=== PATIENT | male | born 1935 | race Caucasian/White ===

== ENCOUNTER 2016-10-07 13:01 | Inpatient (IN) | payer MEDICARE, MEDICAID ==
[2016-10-07 13:02] VITALS: BMI 26.0
[2016-10-07 14:08] LABS: BASO # 0.1 K/uL (0.0-0.2); BASO % 0.7 % (0.0-2.0); EOS # 0.4 K/uL (0.0-0.7); EOS % 2.4 % (0.0-4.0); HEMATOCRIT 38.5 % (35.0-51.0); LYMPH # 2.7 K/uL (1.0-4.3); LYMPH % 16.5 % (20.0-40.0); MEAN CELL VOLUME 70.6 fL (80.0-94.0); MEAN CORPUSCULAR HEMOGLOBIN 21.6 pg (27.0-31.0); MEAN CORPUSCULAR HGB CONC 30.6 g/dL (33.0-37.0); MEAN PLATELET VOLUME 9.2 fL (7.2-11.7); MONO # 1.8 K/uL (0.0-0.8); NRBC % 0.1 % (0.0-2.0)
[2016-10-07 14:16] LABS: WHITE BLOOD COUNT 16.3 K/uL (4.8-10.8)
[2016-10-07 14:20] LABS: BILIRUBIN,TOTAL 0.7 mg/dL (0.2-1.3); TOTAL PROTEIN 8.4 g/dL (6.3-8.3)
[2016-10-07 14:33] LABS: TROPONIN I 0.067 ng/mL (0.00-0.120)
[2016-10-07 14:47] LABS: POTASSIUM 5.7 mmol/L (3.6-5.2)
[2016-10-07] MEDS ORDERED: Sodium Chloride 0.9% 1,000 ML IV ONE (14:52)
[2016-10-07] MEDS ORDERED: Piperacillin/Tazobact 3.375 gm 100 ML IVPB STA (14:55)
[2016-10-07] MEDS ORDERED: Sodium Chloride 0.9% 1,000 ML ONE (14:57)
[2016-10-07] MEDS ORDERED: Piperacillin/Tazobact 3.375 gm 100 ML IVPB ONE (15:00)
--- NOTE | 2016-10-07 15:00 | C.PDOC ---
Time Seen by Provider: 10/07/16 13:22 Chief Complaint (Nursing): Abnormal Skin Integrity History Per: Patient, Family Onset/Duration Of Symptoms: Days (3) Current Symptoms Are (Timing): Still Present Location Of Injury: Left: Foot Quality Of Symptoms: Painful Severity: Moderate Additional History Per: Prior Records Past Medical History Reviewed: Historical Data, Nursing Documentation, Vital Signs Vital Signs: Last Vital Signs Temp 97.9 F 10/07/16 13:08 Pulse 89 10/07/16 13:08 Resp 16 10/07/16 13:08 BP 151/51 H 10/07/16 13:08 Pulse Ox 97 10/07/16 13:08 - Medical History PMH: Arthritis, CAD, Diabetes, HTN, Hypercholesterolemia, Hypothyroidism Surgical History: Cholecystectomy - [facility] Procedures ARTHROCENTESIS (04/20/14) CENTRAL VENOUS CATHETER PLACEMENT WITH GUIDANCE (06/20/14) CYSTOSCOPY NEC (01/19/14) INSERTION OF ENDOTRACHEAL AIRWAY INTO TRACHEA, VIA OPENING (08/01/15) INTRAOPER CHOLANGIOGRAM (09/30/14) LAPAROSCOP LYSIS-PERITONEAL ADHES (09/30/14) LAPAROSCOPIC CHOLECYSTECTOMY (09/30/14) PERC HEPAT CHOLANGIOGRAM (04/20/14) PERCUTAN ASPIRATION GB (07/14/14) REMOV CHOLECYSTOST TUBE (06/03/14) RESPIRATORY VENTILATION, 24-96 CONSECUTIVE HOURS (08/01/15) TRANSURETHRAL PROSTATECTOMY ([place]) (01/19/14) VACCINATION NEC (11/09/14) VENOUS CATHETERIZATION NEC (08/25/14) Family History: States: Unknown Family Hx - Social History Hx Tobacco Use: Yes Hx Alcohol Use: No Hx Substance Use: No - Immunization History Hx Tetanus Toxoid Vaccination: No Hx Influenza Vaccination: No Hx Pneumococcal Vaccination: No Review Of Systems Except As Marked, All Systems Reviewed And Found Negative. Constitutional: Positive for: Weakness, Malaise. Negative for: Fever Cardiovascular: Negative for: Chest Pain Respiratory: Negative for: Shortness of Breath, Hemoptysis Gastrointestinal: Negative for: Vomiting, Abdominal Pain Musculoskeletal: Positive for: Foot Pain (left). Negative for: Neck Pain Neurological: Negative for: Seizures, Altered Mental Status, Headache Physical Exam - Physical Exam Appears: No Acute Distress, Chronically Ill Skin: Warm, Dry Head: Atraumatic Oral Mucosa: Dry Neck: Normal ROM, Supple Cardiovascular: Rhythm Regular Respiratory: Normal Breath Sounds, No Accessory Muscle Use Gastrointestinal/Abdominal: Soft, No Tenderness Extremity: Normal ROM, Other (Left 4th toe is dark in color and tender.) Pulses: Left Dorsalis Pedis: Decreased, Right Dorsalis Pedis: Decreased Neurological/Psych: Oriented x3, Other (Able to move all extremities) Gait: Unable To Assess ED Course And Treatment - Laboratory Results Result Diagrams: 10/07/16 13:59 10/07/16 13:59 Lab Interpretation: Abnormal Interpretation Of Abnormal: Leukocytosis. Elevated BUN/Cr. Hyperglycemia. ECG: Interpreted By Me, Viewed By Me ECG Rhythm: Sinus Rhythm, Nonspecific Changes ECG Interpretation: No Changes From Prior Interpretation Of ECG: LVH with strain pattern. Rate From EC O2 Sat by Pulse Oximetry: 97 Pulse Ox Interpretation: Normal - Radiology CXR: Interpreted by Me, Viewed By Me CXR Interpretation: Yes: No Acute Disease - Other Rad Left 4th toe x-rays X-Ray: Interpreted by Me, Viewed By Me Interpretation: No acute fx or dislocation. Progress - Interventions Interventions:: Observation, Intravenous fluid - Medications Administered Intravenous: Other (Abx) - Data Reviewed Data Reviewed: Lab, Diagnostic imaging, EKG, Old records - Patient Status Patient status: Partially improved - Continuity of Care Discussed patient case with:: Patient, Family-HIPPA compliant, ED Nurse, On- call PMD-pt unassigned - Patient Plan Patient Plan: Admission Disposition Discussed With : Brian Kat Comment: He accepted pt on hospitalist service. Doctor Will See Patient In The: Hospital Counseled Patient/Family Regarding: Studies Performed, Diagnosis, Smoking Cessation - Disposition Disposition: HOSPITALIZED Disposition Time: 15:05 Condition: GUARDED - POA Present On Arrival: Poor Glycemic Control - Clinical Impression Clinical Impression: Diabetic ulcer of toe of left foot, Acute renal failure, Uncontrolled diabetes mellitus with hyperglycemia
--- NOTE | 2016-10-07 15:41 | CP.PCM.HP ---
<Kalli Garcia - Last Filed: 10/07/16 16:17> History of Present Illness - History of Present Illness History of Present Illness: CC: "something is wrong with my foot" HPI: Patient is an 81 year old man with PMHx of arthritis, CAD, CHF, DMII, HTN, hyperlipidemia and hypothyroidism presenting for change in color of 4th left toe. Patient says he noticed the change in color and swelling 7-8 days ago. Patient has not seen his PMD for this or put any type of cream on it. Patient does not have any pain at the toe when it is not being touched. Patient reports being able to walk with his walker which is what he usually uses. Patient denies this ever happening before. Patient denies fever, chills, weight change, headache, vision change, chest pain, palpitations, SOB, cough, abdominal pain, nausea, vomiting, diarrhea, constipation, dysuria, rash, back pain and easy bleeding. PMD: Abid PMHx: Arthritis, CAD, CHF, DM, HTN, Hyperlipidemia, hypothyroidism PSHx: cholecystectomy (09/2104) FamHx: Denies [place], CVA, or cancer history Social Hx: Tobacco - 1/2 ppd x 20 years; Alcohol - denies ; Drugs- denies ; lives in apartment with in [place] Present on Admission - Present on Admission Any Indicators Present on Admission: Yes History of Uncontrolled Diabetes: Yes Review of Systems - Constitutional Constitutional: absent: Chills, Fever, Headache - EENT Eyes: absent: Blurred Vision, Change in Vision Ears: absent: Dizziness Nose/Mouth/Throat: absent: Sore Throat - Cardiovascular Cardiovascular: absent: Chest Pain, Dyspnea, Palpitations, Pedal Edema - Respiratory Respiratory: absent: Cough, Dyspnea - Gastrointestinal Gastrointestinal: absent: Abdominal Pain, Constipation, Diarrhea, Nausea, Vomiting - Genitourinary Genitourinary: absent: Dysuria - Musculoskeletal Musculoskeletal: absent: Back Pain - Integumentary Additional comments: green 4th toe on left foot - Neurological Neurological: absent: Dizziness, Headaches - Endocrine Endocrine: absent: Fatigue, Palpitations - Hematologic/Lymphatic Hematologic: absent: Easy Bleeding, Easy Bruising Past Patient History - Infectious Disease Hx of Infectious Diseases: None - Tetanus Immunizations Tetanus Immunization: Unknown - Past Medical History & Family History Past Medical History?: Yes Past Family History: Reviewed and not pertinent - Past Social History Smoking Status: Light Smoker < 10 Cigarettes Daily Alcohol: None Drugs: Denies Home Situation {Lives}: With Family - CARDIAC Hx Hypercholesterolemia: Yes Hx Hypertension: Yes - PULMONARY Hx Respiratory Disorders: No - NEUROLOGICAL HX Cerebrovascular Accident: Yes - HEENT Hx HEENT Problems: Yes (glasses) Hx Cataracts: Yes (right) - RENAL Hx Chronic Kidney Disease: No - ENDOCRINE/METABOLIC Hx Hypothyroidism: Yes - HEMATOLOGICAL/ONCOLOGICAL Hx Blood Disorders: No - INTEGUMENTARY Hx Dermatological Problems: No - MUSCULOSKELETAL/RHEUMATOLOGICAL Hx Arthritis: Yes - GASTROINTESTINAL Hx Gastrointestinal Disorders: No - GENITOURINARY/GYNECOLOGICAL Hx Genitourinary Disorders: Yes (BPH) Hx Incontinence: Yes Hx Prostate Problems: Yes (prostate surgery in 2013) - PSYCHIATRIC Hx Substance Use: No - SURGICAL HISTORY Hx Cholecystectomy: Yes - ANESTHESIA Hx Anesthesia: Yes Hx Anesthesia Reactions: No Hx Malignant Hyperthermia: No Meds Allergies/Adverse Reactions: Allergies Allergy/AdvReac Type Severity Reaction Status Date / Time No Known Allergies Allergy Verified 10/07/16 13:11 Physical Exam - Constitutional Appears: Non-toxic, No Acute Distress - Head Exam Head Exam: NORMAL INSPECTION - Eye Exam Eye Exam: EOMI - ENT Exam ENT Exam: Mucous Membranes Moist - Respiratory Exam Respiratory Exam: Rales (bibasilar), NORMAL BREATHING PATTERN. absent: Rhonchi , Wheezes - Cardiovascular Exam Cardiovascular Exam: REGULAR RHYTHM, +S1, +S2, Systolic Murmur. absent: Gallop , Rubs - GI/Abdominal Exam GI & Abdominal Exam: Normal Bowel Sounds, Soft. absent: Distended, Firm, Tenderness - Extremities Exam Extremities exam: Positive for: pedal edema (left foot edematous and erythematous) Additional comments: b/l feet cold to touch; faint pedal pulses left 4th toe bright green on dorsal aspect extending along metatarsal bone; dark green on plantar aspect; no open wound; no drainage - Neurological Exam Neurological exam: Alert, Oriented x3 - Psychiatric Exam Psychiatric exam: Normal Affect, Normal Mood - Skin Skin Exam: Dry Results - Vital Signs Recent Vital Signs: Last Vital Signs Temp 97.9 F 10/07/16 13:08 Pulse 89 10/07/16 13:08 Resp 16 10/07/16 13:08 BP 151/51 H 10/07/16 13:08 Pulse Ox 97 10/07/16 15:07 - Labs Result Diagrams: 10/07/16 13:59 10/07/16 13:59 Labs: Laboratory Results - last 24 hr 10/07/16 13:59 WBC 16.3 H D RBC 5.45 Hgb 11.8 L Hct 38.5 MCV 70.6 L MCH 21.6 L MCHC 30.6 L RDW 19.0 H Plt Count 253 MPV 9.2 Neut % (Auto) 69.4 Lymph % (Auto) 16.5 L Love % (Auto) 11.0 H Eos % (Auto) 2.4 Baso % (Auto) 0.7 Neut # 11.3 H Lymph # 2.7 Love # 1.8 H Eos # 0.4 Baso # 0.1 Sodium 133 Potassium 5.7 H Chloride 90 L Carbon Dioxide 24 Anion Gap 25 H BUN 61 H Creatinine 1.9 H Est GFR ( Amer) 41 Est GFR (Non-Af Amer) 34 Random Glucose 335 H Calcium 9.0 Total Bilirubin 0.7 AST 30 ALT 29 Alkaline Phosphatase 128 H Troponin I 0.0670 NT-Pro-B Natriuret Pep 490 Total Protein 8.4 H Albumin 4.2 Globulin 4.2 H Albumin/Globulin Ratio 1.0 Assessment & Plan - Assessment and Plan (Free Text) Assessment: Gangrenous Toe Vancomycin 1gm IVPB in ER Zosyn 3.375gm IVPB in ER NS 1L in ER Vancomycin 500mg IVPB daily (started 10/07/16) Zosyn 2.25gm IVPB Q8H (started 10/07/16) NS @ 70cc/hr Nursing communication to gently wash left foot with saline daily F/U Left foot x ray results F/U Left foot MRI ID consult - Dr. Hauser - help appreciated - Random Vancomycin level ordered for AM - may switch to cubicin tomorrow after she sees patient Podiatry consult - Dr. Gaytan - help appreciated - podiatry resident says she will see patient tomorrow Leukocytosis WBC 16.3 with 11.3 neutrophils, 69.4% neutrophils, no bands Likely secondary to gangrene See plan above Monitor CBC PVD F/U arterial dopplers Vasculary surgery consult depending on result of arterial dopplers Acute on chronic kidney injury BUN/Cr: 61/1.9 NS @ 70cc/hr Holding lasix Monitor BUN/Cr If no improvement with fluids, get nephrology consult History of DM Accuchecks ACHS RISS F/U HgbA1C Hold home metformin 850mg PO History of CAD Continue home ASA 81mg PO daily Continue home Plavix 75mg PO daily History of CHF Hold home lasix 20mg PO daily secondary to acute on chronic kidney injury CXR 10/07/16 - diffuse increased interstitial lung markings which may represent mild edema and/or infiltrate. Patchy increased makrings at the left lung base. Small nodular density at the medial left upper lung zone may represent vessel ( please see full report) History of Hypothyroidism Patient not on any home medications for this F/U TSH and Free T4 History of HTN Continue home Losartan 50mg PO daily Prophylaxis Heparin 5000U SC Q8H SCDs contraindicated secondary to PVD and gangrene Protonix 40mg PO daily <Brian Kat H - Last Filed: 10/07/16 17:19> Results - Vital Signs Recent Vital Signs: Last Vital Signs Temp 97.9 F 10/07/16 13:08 Pulse 89 10/07/16 16:31 Resp 12 10/07/16 16:31 BP 146/111 H 10/07/16 16:31 Pulse Ox 98 10/07/16 16:31 - Labs Result Diagrams: 10/07/16 13:59 10/07/16 13:59 Labs: Laboratory Results - last 24 hr 10/07/16 10/07/16 15:57 16:49 POC Glucose (mg/dL) 277 H Urine Color Yellow Urine Clarity Clear Urine pH 6.0 Ur Specific [place] 1.011 Urine Protein Negative Urine Glucose (UA) 1+ H Urine Ketones Negative Urine Blood Negative Urine Nitrate Negative Urine Bilirubin Negative Urine Urobilinogen Normal Ur Leukocyte Esterase Neg Urine WBC (Auto) 11 H Urine RBC (Auto) < 1 Ur Squamous Epith Cells < 1 Urine Bacteria Rare Attending/Attestation - Attestation I have personally seen and examined this patient.: Yes I have fully participated in the care of the patient.: Yes I have reviewed all pertinent clinical information: Yes Notes (Text): 10/07/16 17:16 Medical attending: Patient was seen and examined by me, agrees the above note by medical data entry clerk. Per inspection of the lower extremity, there does appear to be a lot of discoloration of the fourth toe, he does have a history of diabetes as well as blood pressure. His feet does feel cool with palpation so will check an arterial Doppler study. Furthermore because he explains to us that this is been going on for almost a week and a half now will check an MRI of that lower extremity as well to assess for possible osteomyelitis. In the meantime her to have IV antibiotics, vancomycin as well as Zosyn. Both these will have to be decreased in dosage due to his renal function. The patient will need a podiatry evaluation as well With regard to his elevated BUN/creatinine, will be giving the patient intravenous fluids however we'll have to be careful as to not give him too much pulmonary congestion. Will have to get chest x-rays, it appears that his baseline creatinine is about 1.3 this is from 2 months ago Thank you very much, Brian Kat
[2016-10-07] MEDS ORDERED: Oxycodone/Acetaminophen 5/325 mg Tab PO PRN (15:54)
[2016-10-07] MEDS ORDERED: Piperacillin/Tazobact 2.25 GM in Sodium Chloride 100 ML IVPB SCH (16:00)
[2016-10-07] MEDS ORDERED: Sodium Chloride 0.9% 1,000 ML IV SCH (16:00)
--- NOTE | 2016-10-07 16:01 | RAD ---
PROCEDURE: CHEST RADIOGRAPH, 1 VIEW HISTORY: Generalized weakness COMPARISON: 08/26/2015 FINDINGS: LUNGS: Diffuse increased interstitial lung markings which may represent mild edema and or infiltrate. Patchy increased markings at the left lung base. Small nodular density at the medial left upper lung zone may represent vessel. PLEURA: As above. CARDIOVASCULAR: Cardiomegaly. Calcification at the aortic knob. OSSEOUS STRUCTURES: No significant abnormalities. VISUALIZED UPPER ABDOMEN: Normal. OTHER FINDINGS: None. IMPRESSION: Diffuse increased interstitial lung markings which may represent mild edema and or infiltrate. Patchy increased markings at the left lung base. Small nodular density at the medial left upper lung zone may represent vessel.
[2016-10-07 16:13] LABS: RBC URINE < 1 /hpf (0-3); URINE BACTERIA RARE (<OCC); URINE BILIRUBIN NEGATIVE (NEGATIVE); URINE BLOOD NEGATIVE (NEGATIVE); URINE COLOR Yellow (YELLOW); URINE GLUCOSE (UA) 1+ mg/dL (Normal); URINE KETONE NEGATIVE (NEGATIVE); URINE LEUKOCYTE ESTERASE NEG Leu/uL (Negative); URINE PROTEIN NEGATIVE (NEGATIVE); URINE UROBILINOGEN NORMAL mg/dL (0.2-1.0); WBC URINE 11 /hpf (0-5)
[2016-10-07] MEDS ORDERED: Piperacill/Tazo 2.25gm in Dex 50 ML IVPB SCH (16:15)
[2016-10-07] MEDS: Pantoprazole 40 mg EC Tab PO SCH (16:40)
[2016-10-07] MEDS: (Novolin R) Insulin Human Regular 100 units/ml vial SC SCH ×2 (16:55→23:13)
--- NOTE | 2016-10-07 18:34 | RAD ---
Left foot 4th digit History: Pain. Discoloration. Comparison: None available. Findings: Moderate hallux valgus deformity with prominent degenerative changes noted at the 1st MTP joint space. Diffuse osteopenia somewhat limits evaluation. Subtle lucency the medial base of the 5th proximal, nonspecific. Curvilinear lucency through the base of the proximal phalanx nonspecific on the frontal view. Productive change the lateral cortex of the heads of the 3rd and 4th metatarsal nonspecific. Vascular calcifications. No evidence for acute displaced fracture or dislocation. Productive change at the dorsal aspect of the midfoot. Productive change at the level medial malleolus. Impression: Moderate hallux valgus deformity with prominent degenerative changes noted at the 1st MTP joint space. Diffuse osteopenia somewhat limits evaluation. Subtle lucency the medial base of the 5th proximal, nonspecific. Curvilinear lucency through the base of the proximal phalanx nonspecific on the frontal view. Productive change the lateral cortex of the heads of the 3rd and 4th metatarsal nonspecific. Vascular calcifications. No evidence for acute displaced fracture or dislocation. Productive change at the dorsal aspect of the midfoot. Productive change at the level medial malleolus. If there is concern for acute osteomyelitis, correlation with MRI or 3 phase bone scan is recommended for further evaluation.
[2016-10-07] MEDS: DAPTOmycin 600 MG in Sodium Chloride 0.9% 100 ML IV SCH (21:27)
[2016-10-07] MEDS: Piperacill/Tazo 2.25gm in Dex 50 ML IVPB SCH (23:16)
[2016-10-08] MEDS: Piperacill/Tazo 2.25gm in Dex 50 ML IVPB SCH ×3 (06:07→23:40)
[2016-10-08 07:18] LABS: BASO # 0.1 K/uL (0.0-0.2); BASO % 0.7 % (0.0-2.0); EOS # 0.3 K/uL (0.0-0.7); EOS % 3.2 % (0.0-4.0); HEMATOCRIT 37.2 % (35.0-51.0); LYMPH # 1.1 K/uL (1.0-4.3); LYMPH % 10.8 % (20.0-40.0); MEAN CELL VOLUME 70.4 fL (80.0-94.0); MEAN CORPUSCULAR HEMOGLOBIN 21.7 pg (27.0-31.0); MEAN CORPUSCULAR HGB CONC 30.8 g/dL (33.0-37.0); MEAN PLATELET VOLUME 8.9 fL (7.2-11.7); MONO # 0.9 K/uL (0.0-0.8); MONO % 8.9 % (0.0-10.0); RED CELL DISTRIBUTION WIDTH 18.4 % (11.5-14.5); WHITE BLOOD COUNT 10.4 K/uL (4.8-10.8)
[2016-10-08 07:28] LABS: POTASSIUM 4.2 mmol/L (3.6-5.2)
[2016-10-08 07:30] LABS: ALB/GLOB RATIO 0.9 (1.0-2.1); BILIRUBIN,TOTAL 0.5 mg/dL (0.2-1.3); TOTAL PROTEIN 7.1 g/dL (6.3-8.3)
[2016-10-08 07:31] LABS: CALCIUM 8.3 mg/dl (8.6-10.4)
[2016-10-08 08:01] LABS: THYROID STIMULATING HORMONE 4.47 mIU/L (0.46-4.68)
--- NOTE | 2016-10-08 08:22 | CP.PCM.PN ---
<Danny Vidales - Last Filed: 10/08/16 13:06> Subjective - Date & Time of Evaluation Date of Evaluation: 10/08/16 Time of Evaluation: 08:22 - Subjective Subjective: PGY-1 Medicine Progress Note for Dr. Garcai Patient seen and examined at bedside. No acute event overnight. Patient resting in bed comfortably. Patient is still complaining of pain in L foot. He stated that is the saem and yesterday. Patient has no other acute complaint at this time. He is tolerating diet and having BM. Denied fever/chills, cp, palpitations , sob, abd pain, n/v/d. Objective - Vital Signs/Intake and Output Vital Signs (last 24 hours): Temp Pulse Resp BP Pulse Ox 98 F 108 H 20 122/65 95 10/08/16 00:00 10/08/16 00:00 10/08/16 00:00 10/08/16 00:00 10/08/16 00:00 Intake and Output: 10/08/16 10/08/16 06:59 18:59 Intake Total 1000 Balance 1000 - Medications Medications: Current Medications Aspirin (Aspirin Chewable) 81 mg PO DAILY [facility] Clopidogrel Bisulfate (Plavix) 75 mg PO DAILY [facility] Heparin Sodium (Porcine) (Heparin) 5,000 units SC Q8 [facility] Last Admin: 10/08/16 06:07 Dose: 5,000 units Sodium Chloride (Sodium Chloride 0.9%) 1,000 mls @ 70 mls/hr IV .[id number] [facility] Last Admin: 10/07/16 16:08 Dose: 70 mls/hr Vancomycin HCl 500 mg/ Sodium (Chloride) 100 mls @ 100 mls/hr IVPB DAILY [facility] Piperacillin Sod/Tazobactam Sod (Zosyn 2.25 Gm Iv Premix) 50 mls @ 100 mls/hr IVPB Q8H [facility] Last Admin: 10/08/16 06:07 Dose: 100 mls/hr Daptomycin 600 mg/ Sodium (Chloride) 100 mls @ 100 mls/hr IV Q24H [facility] Stop: 10/12/16 18:01 Last Admin: 10/07/16 21:27 Dose: 100 mls/hr Insulin Human Regular (Novolin R) 0 unit SC ACHS [facility] PRN Reason: Protocol Last Admin: 10/07/16 23:13 Dose: Not Given Losartan Potassium (Cozaar) 50 mg PO DAILY [facility] Last Admin: 10/07/16 21:49 Dose: 50 mg Oxycodone/Acetaminophen (Percocet 5/325 Mg Tab) 1 tab PO Q4 PRN PRN Reason: Pain, moderate (4-7) Stop: 10/10/16 15:55 Pantoprazole Sodium (Protonix Ec Tab) 40 mg PO DAILY [facility] Last Admin: 10/07/16 16:40 Dose: 40 mg - Labs Labs: 10/08/16 07:10 10/08/16 07:10 - Constitutional Appears: No Acute Distress - Head Exam Head Exam: ATRAUMATIC, NORMOCEPHALIC - Eye Exam Eye Exam: EOMI, Normal appearance Pupil Exam: PERRL - ENT Exam ENT Exam: Mucous Membranes Moist - Respiratory Exam Respiratory Exam: Rales (Bibasilar), NORMAL BREATHING PATTERN. absent: Accessory Muscle Use, Respiratory Distress - Cardiovascular Exam Cardiovascular Exam: RRR, +S1, +S2 - GI/Abdominal Exam GI & Abdominal Exam: Soft, Normal Bowel Sounds. absent: Tenderness - Extremities Exam Extremities Exam: Normal Capillary Refill, Pedal Edema Additional comments: left foot edematous and erythematous b/l feet cold to touch; faint pedal pulses left 4th toe bright green on dorsal aspect extending along metatarsal bone; dark green on plantar aspect; no open wound; no drainage - Back Exam Back Exam: absent: CVA tenderness (L), CVA tenderness (R) - Neurological Exam Neurological Exam: Alert, Awake, CN II-XII Intact, Oriented x3 - Psychiatric Exam Psychiatric exam: Normal Affect, Normal Mood - Skin Skin Exam: Dry Assessment and Plan - Assessment and Plan (Free Text) Plan: 1. Gangrenous Toe Vascular Consult, Dr. Brown, help appreciated Daptomycin 600 mg IVPB Q24H Vancomycin 500mg IVPB daily (started 10/07/16) Zosyn 2.25gm IVPB Q8H (started 10/07/16) NS @ 70 cc/hr Nursing communication to gently wash left foot with saline daily Left foot x ray results: mild hallux deformity with degenerative changes. Diffuse osteopenia. Productive changes of 3rd and 4th metatarsal, dorsal aspect of midfoot, and level medial mallelolus (see full report). F/U Left foot MRI ID consult - Dr. Hauser - help appreciated Random Vancomycin level: 7.05 Podiatry consult - Dr. Gaytan - help appreciated 2. Leukocytosis WBC downtrending Likely secondary to gangrene Monitor CBC 3. PAD F/U arterial dopplers Vascular Consult, Dr. Brown, help appreciated 4. Acute on chronic kidney injury BUN/Cr: 50/1.7 NS @ 70 cc/hr Holding lasix Monitor BUN/Cr 5. History of DM Accuchecks ACHS RISS F/U HgbA1C Hold home metformin 850mg PO 6. History of CAD Continue home ASA 81mg PO daily Continue home Plavix 75mg PO daily 7. History of CHF Hold home lasix 20 mg PO daily secondary to acute on chronic kidney injury CXR 10/07/16 - diffuse increased interstitial lung markings which may represent mild edema and/or infiltrate. Patchy increased makrings at the left lung base. Small nodular density at the medial left upper lung zone may represent vessel ( please see full report) 8. History of Hypothyroidism Patient not on any home medications for this TSH 4.47 Free T4 1.25 9. History of HTN Continue home Losartan 50 mg PO daily 10. Prophylactic Measures Heparin 5000U SC Q8H SCDs contraindicated secondary to PVD and gangrene Protonix 40mg PO daily <Tahir Garcia - Last Filed: 10/08/16 17:55> Objective - Vital Signs/Intake and Output Vital Signs (last 24 hours): Temp Pulse Resp BP Pulse Ox 97.8 F 95 H 20 130/75 96 10/08/16 15:25 10/08/16 15:25 10/08/16 15:25 10/08/16 15:25 10/08/16 15:25 Intake and Output: 10/08/16 10/08/16 06:59 18:59 Intake Total 1000 530 Balance 1000 530 - Medications Medications: Current Medications Acetylcysteine (Acetylcysteine 20%) 3 ml PO Q12 [facility] Last Admin: 10/08/16 14:06 Dose: 3 ml Aspirin (Aspirin Chewable) 81 mg PO DAILY [facility] Last Admin: 10/08/16 10:06 Dose: 81 mg Clopidogrel Bisulfate (Plavix) 75 mg PO DAILY [facility] Last Admin: 10/08/16 10:06 Dose: 75 mg Heparin Sodium (Porcine) (Heparin) 5,000 units SC Q8 [facility] Last Admin: 10/08/16 14:07 Dose: 5,000 units Sodium Chloride (Sodium Chloride 0.9%) 1,000 mls @ 70 mls/hr IV .[id number] [facility] Last Admin: 10/07/16 16:08 Dose: 70 mls/hr Piperacillin Sod/Tazobactam Sod (Zosyn 2.25 Gm Iv Premix) 50 mls @ 100 mls/hr IVPB Q8H [facility] Last Admin: 10/08/16 14:54 Dose: 100 mls/hr Daptomycin 600 mg/ Sodium (Chloride) 100 mls @ 100 mls/hr IV Q24H [facility] Stop: 10/12/16 18:01 Last Admin: 10/07/16 21:27 Dose: 100 mls/hr Insulin Glargine (Lantus) 10 unit SC DAILY [facility] Last Admin: 10/08/16 14:44 Dose: 10 u Insulin Human Regular (Novolin R) 0 unit SC ACHS [facility] PRN Reason: Protocol Last Admin: 10/08/16 14:10 Dose: 3 unit Losartan Potassium (Cozaar) 50 mg PO DAILY [facility] Last Admin: 10/08/16 10:06 Dose: 50 mg Mupirocin (Bactroban Ointment) 0 gm TOP BID [facility] Oxycodone/Acetaminophen (Percocet 5/325 Mg Tab) 1 tab PO Q4 PRN PRN Reason: Pain, moderate (4-7) Stop: 10/10/16 15:55 Pantoprazole Sodium (Protonix Ec Tab) 40 mg PO DAILY [facility] Last Admin: 10/08/16 10:05 Dose: 40 mg - Labs Labs: 10/08/16 07:10 10/08/16 07:10 Attending/Attestation - Attestation I have personally seen and examined this patient.: Yes I have fully participated in the care of the patient.: Yes I have reviewed all pertinent clinical information, including history, physical exam and plan: Yes Notes (Text): 10/08/16 17:54 Patient was seen and examined at bedside with the resident Patient has possible gangrenous left foot toe We have requested vascular surgery and podiatry evaluation Workup is in progress Patient also started on antibiotics as per recommendations of ID
[2016-10-08] MEDS: (Novolin R) Insulin Human Regular 100 units/ml vial SC SCH ×4 (09:13→22:36)
[2016-10-08] MEDS: Pantoprazole 40 mg EC Tab PO SCH (10:05)
--- NOTE | 2016-10-08 11:47 | CP.PCM.CON ---
History of Present Illness - History of Present Illness History of Present Illness: 81 year old male for gsngrenous toe 4 left foot and foot is cold and swollen . Review of Systems - Constitutional Constitutional: Weakness - Cardiovascular Cardiovascular: Leg Edema, Pedal Edema - Respiratory Respiratory: As Per HPI - Gastrointestinal Gastrointestinal: As Per HPI - Musculoskeletal Musculoskeletal: Abnormal Gait, Muscle Weakness, Stiffness - Integumentary Integumentary: Skin Ulcer - Neurological Neurological: As Per HPI Past Patient History - Infectious Disease Hx of Infectious Diseases: None - Tetanus Immunizations Tetanus Immunization: Unknown - Past Medical History & Family History Past Medical History?: Yes - Past Social History Smoking Status: Never Smoked - CARDIAC Hx Hypercholesterolemia: Yes Hx Hypertension: Yes - PULMONARY Hx Respiratory Disorders: No - NEUROLOGICAL HX Cerebrovascular Accident: Yes - HEENT Hx HEENT Problems: Yes (glasses) Hx Cataracts: Yes (right) - RENAL Hx Chronic Kidney Disease: No - ENDOCRINE/METABOLIC Hx Hypothyroidism: Yes - HEMATOLOGICAL/ONCOLOGICAL Hx Blood Disorders: No - INTEGUMENTARY Hx Dermatological Problems: No - MUSCULOSKELETAL/RHEUMATOLOGICAL Hx Arthritis: Yes Hx Falls: No - GASTROINTESTINAL Hx Gastrointestinal Disorders: No - GENITOURINARY/GYNECOLOGICAL Hx Genitourinary Disorders: Yes (BPH) Hx Incontinence: Yes Hx Prostate Problems: Yes (prostate surgery in 2013) - PSYCHIATRIC Hx Substance Use: No - SURGICAL HISTORY Hx Cholecystectomy: Yes - ANESTHESIA Hx Anesthesia: Yes Hx Anesthesia Reactions: No Hx Malignant Hyperthermia: No Meds Allergies/Adverse Reactions: Allergies Allergy/AdvReac Type Severity Reaction Status Date / Time No Known Allergies Allergy Verified 10/07/16 13:11 - Medications Medications: Current Medications Aspirin (Aspirin Chewable) 81 mg PO DAILY [facility] Last Admin: 10/08/16 10:06 Dose: 81 mg Clopidogrel Bisulfate (Plavix) 75 mg PO DAILY [facility] Last Admin: 10/08/16 10:06 Dose: 75 mg Heparin Sodium (Porcine) (Heparin) 5,000 units SC Q8 [facility] Last Admin: 10/08/16 06:07 Dose: 5,000 units Sodium Chloride (Sodium Chloride 0.9%) 1,000 mls @ 70 mls/hr IV .[id number] [facility] Last Admin: 10/07/16 16:08 Dose: 70 mls/hr Vancomycin HCl 500 mg/ Sodium (Chloride) 100 mls @ 100 mls/hr IVPB DAILY [facility] Piperacillin Sod/Tazobactam Sod (Zosyn 2.25 Gm Iv Premix) 50 mls @ 100 mls/hr IVPB Q8H [facility] Last Admin: 10/08/16 06:07 Dose: 100 mls/hr Daptomycin 600 mg/ Sodium (Chloride) 100 mls @ 100 mls/hr IV Q24H [facility] Stop: 10/12/16 18:01 Last Admin: 10/07/16 21:27 Dose: 100 mls/hr Insulin Glargine (Lantus) 10 unit SC DAILY [facility] Insulin Human Regular (Novolin R) 0 unit SC ACHS [facility] PRN Reason: Protocol Last Admin: 10/08/16 09:13 Dose: 3 unit Losartan Potassium (Cozaar) 50 mg PO DAILY [facility] Last Admin: 10/08/16 10:06 Dose: 50 mg Oxycodone/Acetaminophen (Percocet 5/325 Mg Tab) 1 tab PO Q4 PRN PRN Reason: Pain, moderate (4-7) Stop: 10/10/16 15:55 Pantoprazole Sodium (Protonix Ec Tab) 40 mg PO DAILY [facility] Last Admin: 10/08/16 10:05 Dose: 40 mg Physical Exam - Extremities Exam Additional comments: O/Gangrene toe 4 left foot .DP/PT pulses non palpable b/l . Left foot cold to touch. Pain noted left foot . Xray Vascular calcifications left foot. Results - Vital Signs Recent Vital Signs: Last Vital Signs Temp 97.5 F L 10/08/16 07:00 Pulse 76 10/08/16 07:00 Resp 19 10/08/16 07:00 BP 111/82 10/08/16 07:00 Pulse Ox 100 10/08/16 07:00 - Labs Result Diagrams: 10/08/16 07:10 10/08/16 07:10 Labs: Laboratory Results - last 24 hr 10/07/16 10/07/16 10/07/16 15:57 16:49 22:02 WBC RBC Hgb Hct MCV MCH MCHC RDW Plt Count MPV Neut % (Auto) Lymph % (Auto) [place] % (Auto) Eos % (Auto) Baso % (Auto) Neut # Lymph # [place] # Eos # Baso # Sodium Potassium Chloride Carbon Dioxide Anion Gap BUN Creatinine Est GFR ( Amer) Est GFR (Non-Af Amer) POC Glucose (mg/dL) 277 H 236 H Random Glucose Hemoglobin A1c Calcium Total Bilirubin AST ALT Alkaline Phosphatase Total Protein Albumin Globulin Albumin/Globulin Ratio Free T4 TSH 3rd Generation Urine Color Yellow Urine Clarity Clear Urine pH 6.0 Ur Specific [place] 1.011 Urine Protein Negative Urine Glucose (UA) 1+ H Urine Ketones Negative Urine Blood Negative Urine Nitrate Negative Urine Bilirubin Negative Urine Urobilinogen Normal Ur Leukocyte Esterase Neg Urine WBC (Auto) 11 H Urine RBC (Auto) < 1 Ur Squamous Epith Cells < 1 Urine Bacteria Rare Random Vancomycin 10/08/16 10/08/16 06:47 07:10 WBC 10.4 RBC 5.28 Hgb 11.4 L Hct 37.2 MCV 70.4 L MCH 21.7 L MCHC 30.8 L RDW 18.4 H Plt Count 221 MPV 8.9 Neut % (Auto) 76.4 H Lymph % (Auto) 10.8 L [place] % (Auto) 8.9 Eos % (Auto) 3.2 Baso % (Auto) 0.7 Neut # 7.9 H Lymph # 1.1 [place] # 0.9 H Eos # 0.3 Baso # 0.1 Sodium 136 Potassium 4.2 Chloride 99 Carbon Dioxide 23 Anion Gap 18 BUN 50 H Creatinine 1.7 H Est GFR ( Amer) 47 Est GFR (Non-Af Amer) 39 POC Glucose (mg/dL) 210 H Random Glucose 204 H Hemoglobin A1c 10.0 H Calcium 8.3 L Total Bilirubin 0.5 AST 22 ALT 27 Alkaline Phosphatase 113 Total Protein 7.1 Albumin 3.5 Globulin 3.7 Albumin/Globulin Ratio 0.9 L Free T4 1.25 TSH 3rd Generation 4.47 Urine Color Urine Clarity Urine pH Ur Specific [place] Urine Protein Urine Glucose (UA) Urine Ketones Urine Blood Urine Nitrate Urine Bilirubin Urine Urobilinogen Ur Leukocyte Esterase Urine WBC (Auto) Urine RBC (Auto) Ur Squamous Epith Cells Urine Bacteria Random Vancomycin 7.05 Assessment & Plan - Assessment and Plan (Free Text) Assessment: A/Gangrene toe 4 left /PAD Plan: P/Vascular eval and if possible intervention by before any decicion with toe. Bactroban to toe 4 left bid .
--- NOTE | 2016-10-08 12:40 | CP.PCM.PN ---
Subjective - Date & Time of Evaluation Date of Evaluation: 10/08/16 Time of Evaluation: 12:39 - Subjective Subjective: previous gb surgery bun 50 Cr 1.7 needs hydration/ mucomyst prior to cta 4th toe is issue Objective - Vital Signs/Intake and Output Vital Signs (last 24 hours): Temp Pulse Resp BP Pulse Ox 97.5 F L 76 19 111/82 100 10/08/16 07:00 10/08/16 07:00 10/08/16 07:00 10/08/16 07:00 10/08/16 07:00 Intake and Output: 10/08/16 10/08/16 06:59 18:59 Intake Total 1000 Balance 1000 - Medications Medications: Current Medications Aspirin (Aspirin Chewable) 81 mg PO DAILY [facility] Last Admin: 10/08/16 10:06 Dose: 81 mg Clopidogrel Bisulfate (Plavix) 75 mg PO DAILY [facility] Last Admin: 10/08/16 10:06 Dose: 75 mg Heparin Sodium (Porcine) (Heparin) 5,000 units SC Q8 [facility] Last Admin: 10/08/16 06:07 Dose: 5,000 units Sodium Chloride (Sodium Chloride 0.9%) 1,000 mls @ 70 mls/hr IV .[id number] [facility] Last Admin: 10/07/16 16:08 Dose: 70 mls/hr Vancomycin HCl 500 mg/ Sodium (Chloride) 100 mls @ 100 mls/hr IVPB DAILY [facility] Piperacillin Sod/Tazobactam Sod (Zosyn 2.25 Gm Iv Premix) 50 mls @ 100 mls/hr IVPB Q8H [facility] Last Admin: 10/08/16 06:07 Dose: 100 mls/hr Daptomycin 600 mg/ Sodium (Chloride) 100 mls @ 100 mls/hr IV Q24H [facility] Stop: 10/12/16 18:01 Last Admin: 10/07/16 21:27 Dose: 100 mls/hr Insulin Glargine (Lantus) 10 unit SC DAILY [facility] Insulin Human Regular (Novolin R) 0 unit SC ACHS [facility] PRN Reason: Protocol Last Admin: 10/08/16 09:13 Dose: 3 unit Losartan Potassium (Cozaar) 50 mg PO DAILY [facility] Last Admin: 10/08/16 10:06 Dose: 50 mg Mupirocin (Bactroban Ointment) 0 gm TOP BID [facility] Oxycodone/Acetaminophen (Percocet 5/325 Mg Tab) 1 tab PO Q4 PRN PRN Reason: Pain, moderate (4-7) Stop: 10/10/16 15:55 Pantoprazole Sodium (Protonix Ec Tab) 40 mg PO DAILY [facility] Last Admin: 10/08/16 10:05 Dose: 40 mg - Labs Labs: 10/08/16 07:10 10/08/16 07:10
[2016-10-08] MEDS: Acetylcysteine 20% Inhal Soln (4ml) PO SCH ×2 (14:06→23:35)
[2016-10-08] MEDS: (Lantus) Insulin Glargine, Recombinant SC SCH ×2 (14:08→14:44)
--- NOTE | 2016-10-08 14:32 | CP.PCM.CON ---
History of Present Illness - History of Present Illness History of Present Illness: dictated Past Patient History - Infectious Disease Hx of Infectious Diseases: None - Tetanus Immunizations Tetanus Immunization: Unknown - Past Medical History & Family History Past Medical History?: Yes - Past Social History Smoking Status: Never Smoked - CARDIAC Hx Hypercholesterolemia: Yes Hx Hypertension: Yes - PULMONARY Hx Respiratory Disorders: No - NEUROLOGICAL HX Cerebrovascular Accident: Yes - HEENT Hx HEENT Problems: Yes (glasses) Hx Cataracts: Yes (right) - RENAL Hx Chronic Kidney Disease: No - ENDOCRINE/METABOLIC Hx Hypothyroidism: Yes - HEMATOLOGICAL/ONCOLOGICAL Hx Blood Disorders: No - INTEGUMENTARY Hx Dermatological Problems: No - MUSCULOSKELETAL/RHEUMATOLOGICAL Hx Arthritis: Yes Hx Falls: No - GASTROINTESTINAL Hx Gastrointestinal Disorders: No - GENITOURINARY/GYNECOLOGICAL Hx Genitourinary Disorders: Yes (BPH) Hx Incontinence: Yes Hx Prostate Problems: Yes (prostate surgery in 2013) - PSYCHIATRIC Hx Substance Use: No - SURGICAL HISTORY Hx Cholecystectomy: Yes - ANESTHESIA Hx Anesthesia: Yes Hx Anesthesia Reactions: No Hx Malignant Hyperthermia: No Meds Allergies/Adverse Reactions: Allergies Allergy/AdvReac Type Severity Reaction Status Date / Time No Known Allergies Allergy Verified 10/07/16 13:11 - Medications Medications: Current Medications Acetylcysteine (Acetylcysteine 20%) 3 ml PO Q12 [facility] Last Admin: 10/08/16 14:06 Dose: 3 ml Aspirin (Aspirin Chewable) 81 mg PO DAILY [facility] Last Admin: 10/08/16 10:06 Dose: 81 mg Clopidogrel Bisulfate (Plavix) 75 mg PO DAILY [facility] Last Admin: 10/08/16 10:06 Dose: 75 mg Heparin Sodium (Porcine) (Heparin) 5,000 units SC Q8 [facility] Last Admin: 10/08/16 14:07 Dose: 5,000 units Sodium Chloride (Sodium Chloride 0.9%) 1,000 mls @ 70 mls/hr IV .[id number] [facility] Last Admin: 10/07/16 16:08 Dose: 70 mls/hr Piperacillin Sod/Tazobactam Sod (Zosyn 2.25 Gm Iv Premix) 50 mls @ 100 mls/hr IVPB Q8H [facility] Last Admin: 10/08/16 06:07 Dose: 100 mls/hr Daptomycin 600 mg/ Sodium (Chloride) 100 mls @ 100 mls/hr IV Q24H [facility] Stop: 10/12/16 18:01 Last Admin: 10/07/16 21:27 Dose: 100 mls/hr Insulin Glargine (Lantus) 10 unit SC DAILY [facility] Last Admin: 10/08/16 14:08 Dose: Not Given Insulin Human Regular (Novolin R) 0 unit SC ACHS [facility] PRN Reason: Protocol Last Admin: 10/08/16 14:10 Dose: 3 unit Losartan Potassium (Cozaar) 50 mg PO DAILY [facility] Last Admin: 10/08/16 10:06 Dose: 50 mg Mupirocin (Bactroban Ointment) 0 gm TOP BID [facility] Oxycodone/Acetaminophen (Percocet 5/325 Mg Tab) 1 tab PO Q4 PRN PRN Reason: Pain, moderate (4-7) Stop: 10/10/16 15:55 Pantoprazole Sodium (Protonix Ec Tab) 40 mg PO DAILY [facility] Last Admin: 10/08/16 10:05 Dose: 40 mg Results - Vital Signs Recent Vital Signs: Last Vital Signs Temp 97.5 F L 10/08/16 07:00 Pulse 76 10/08/16 07:00 Resp 19 10/08/16 07:00 BP 111/82 10/08/16 07:00 Pulse Ox 100 10/08/16 07:00 - Labs Result Diagrams: 10/08/16 07:10 10/08/16 07:10 Labs: Laboratory Results - last 24 hr 10/07/16 10/07/16 10/07/16 15:57 16:49 22:02 WBC RBC Hgb Hct MCV MCH MCHC RDW Plt Count MPV Neut % (Auto) Lymph % (Auto) [place] % (Auto) Eos % (Auto) Baso % (Auto) Neut # Lymph # [place] # Eos # Baso # Sodium Potassium Chloride Carbon Dioxide Anion Gap BUN Creatinine Est GFR ( Amer) Est GFR (Non-Af Amer) POC Glucose (mg/dL) 277 H 236 H Random Glucose Hemoglobin A1c Calcium Total Bilirubin AST ALT Alkaline Phosphatase Total Protein Albumin Globulin Albumin/Globulin Ratio Free T4 TSH 3rd Generation Urine Color Yellow Urine Clarity Clear Urine pH 6.0 Ur Specific [place] 1.011 Urine Protein Negative Urine Glucose (UA) 1+ H Urine Ketones Negative Urine Blood Negative Urine Nitrate Negative Urine Bilirubin Negative Urine Urobilinogen Normal Ur Leukocyte Esterase Neg Urine WBC (Auto) 11 H Urine RBC (Auto) < 1 Ur Squamous Epith Cells < 1 Urine Bacteria Rare Random Vancomycin 10/08/16 10/08/16 10/08/16 06:47 07:10 11:50 WBC 10.4 RBC 5.28 Hgb 11.4 L Hct 37.2 MCV 70.4 L MCH 21.7 L MCHC 30.8 L RDW 18.4 H Plt Count 221 MPV 8.9 Neut % (Auto) 76.4 H Lymph % (Auto) 10.8 L [place] % (Auto) 8.9 Eos % (Auto) 3.2 Baso % (Auto) 0.7 Neut # 7.9 H Lymph # 1.1 [place] # 0.9 H Eos # 0.3 Baso # 0.1 Sodium 136 Potassium 4.2 Chloride 99 Carbon Dioxide 23 Anion Gap 18 BUN 50 H Creatinine 1.7 H Est GFR ( Amer) 47 Est GFR (Non-Af Amer) 39 POC Glucose (mg/dL) 210 H 290 H Random Glucose 204 H Hemoglobin A1c 10.0 H Calcium 8.3 L Total Bilirubin 0.5 AST 22 ALT 27 Alkaline Phosphatase 113 Total Protein 7.1 Albumin 3.5 Globulin 3.7 Albumin/Globulin Ratio 0.9 L Free T4 1.25 TSH 3rd Generation 4.47 Urine Color Urine Clarity Urine pH Ur Specific [place] Urine Protein Urine Glucose (UA) Urine Ketones Urine Blood Urine Nitrate Urine Bilirubin Urine Urobilinogen Ur Leukocyte Esterase Urine WBC (Auto) Urine RBC (Auto) Ur Squamous Epith Cells Urine Bacteria Random Vancomycin 7.05
[2016-10-08] MEDS: DAPTOmycin 600 MG in Sodium Chloride 0.9% 100 ML IV SCH (17:52)
--- NOTE | 2016-10-08 22:19 | CON ---
DATE: 10/08/2016 HISTORY OF PRESENT ILLNESS: This is a new consult for this patient, an 81-year-old male with history of arthritis, coronary artery disease, CHF, diabetes type 2, hypertension, hyperlipidemia, hypothyro idism, presented with color change in his fourth toe and noticed this 7-8 days prior to coming here. He has not seen his PMD and he was putting some sort of a ointment on it. Does not have any pain. Celso senior is diabetic for some time and he was able to walk with his walker and they just noticed it. He has no fever reported. No nausea, no vomiting, no diarrhea, no headache, no chest pain, no palpitations , no shortness of breath. No cough, cold or any other thing going. PAST MEDICAL HISTORY: He does have a history of CHF, coronary artery disease, diabetes, hypertension , hypothyroidism, hyperlipidemia. SURGICAL HISTORY: Significant for cholecystectomy, which was in 2004. SOCIAL HISTORY: He smokes half pack per day for 20 years and no drugs. Lives with his in [facility]. ALLERGIES: He is not allergic to any medicine. REVIEW OF SYSTEMS: He had no fever, no chills, no headache. No ear, nose, throat problems. No ches t pain, no shortness of breath, no cough, no cold, no abdominal pain, no nausea, no vomiting. No urin leandro complaints, urgency, frequency. No skin problems except this fourth toe which appears to be disc olored, and denies any endocrine other problems except for having diabetes. The patient has no other complaints and past medical history as above. MEDICATIONS: He is on Mucomyst as his creatinine is up and he needs to have angiogram. He is on Roberta vix. He is on daptomycin, heparin, insulin, losartan, mupirocin and Tylenol and he is also getting Z osyn, which is at a decreased amount because he is with renal insufficiency. PHYSICAL EXAMINATION: VITAL SIGNS: We find his temperature is 97.8, pulse 95, blood pressure 130/75, respirations are 20. HEENT: Head is atraumatic, normocephalic. Pupils are reacting to light. Throat with no congestion, no thrush seen. NECK: Supple. . LUNGS: Clear. No crackles or rales present. HEART: S1, S2 is regular. No murmurs appreciated. ABDOMEN: Soft, nontender, no guarding, no rigidity present. EXTREMITIES: Feet: In both feet, I am not able to feel any pulses. He has a left fourth green toe an d no drainage noted. It is discolored, probably has gangrene. He is tender on the foot area. LABORATORY DATA: Noted, white count is 10.4, hemoglobin 11.4, hematocrit 37, platelet count is 221. He came in with a white count of 16.3. Sodium is 136, potassium 4.2, chloride 99, creatinine is 1.7. When he came, his creatinine was also 1.7. He has diabetes, hemoglobin A1c is 10.0 so it is uncontr olled diabetes and he was given vancomycin, but because he has renal insufficiency, I have switched h im to Cubicin. UA has WBC 11, otherwise was unremarkable. He had a foot x-ray done, which showed mod erate hallux valgus deformity, diffuse osteopenia, subtle lucency medial base of the fifth proximal, nonspecific, curvilinear lucency through the base of the proximal phalanx, productive changes of the lateral cortex, vascular calcification, no evidence for acute displaced fracture or dislocation to do an MRI or 3 phase bone scan. I do not see a bone scan or MRI. MRI has been ordered to rule out osteomyelitis and patient is on antibiotics and he was also seen by Dr. Brown and Dr. Nikole welch and we will follow their plans. At this time, he should be on IV fluids to see if the creatinine c omes down. We will follow and will continue present antibiotics as ordered. Jarrod Hauser MD cc: [id number] TT: 10/08/2016 22:18:47 Confirmation # [id number] Dictation # [id number]
[2016-10-09] MEDS: Piperacill/Tazo 2.25gm in Dex 50 ML IVPB SCH ×3 (06:18→22:02)
[2016-10-09 07:24] LABS: POTASSIUM 4.1 mmol/L (3.6-5.2)
[2016-10-09 07:26] LABS: BILIRUBIN,TOTAL 0.5 mg/dL (0.2-1.3)
[2016-10-09 07:27] LABS: CALCIUM 8.5 mg/dl (8.6-10.4); TOTAL PROTEIN 7.1 g/dL (6.3-8.3)
[2016-10-09] MEDS: (Novolin R) Insulin Human Regular 100 units/ml vial SC SCH ×5 (08:38→21:49)
--- NOTE | 2016-10-09 09:15 | CP.PCM.PN ---
<Danny Vidales - Last Filed: 10/09/16 13:26> Subjective - Date & Time of Evaluation Date of Evaluation: 10/09/16 Time of Evaluation: 07:20 - Subjective Subjective: PGY-1 Medicine Progress Note for Dr. Garcia Patient seen and examined at bedside. No acute event overnight. Patient resting in bed comfortably. Patient is still complaining of pain in L foot. Patient has no other acute complaint at this time. He is tolerating diet and having BM. Denied fever/chills, cp, palpitations, sob, abd pain, n/v/d. Objective - Vital Signs/Intake and Output Vital Signs (last 24 hours): Temp Pulse Resp BP Pulse Ox 98 F 100 H 20 116/59 L 95 10/09/16 00:00 10/09/16 00:00 10/09/16 00:00 10/09/16 00:00 10/09/16 00:00 Intake and Output: 10/09/16 10/09/16 06:59 18:59 Intake Total 710 Output Total 350 Balance 360 - Medications Medications: Current Medications Acetylcysteine (Acetylcysteine 20%) 3 ml PO Q12 [facility] Last Admin: 10/08/16 23:35 Dose: 3 ml Aspirin (Aspirin Chewable) 81 mg PO DAILY [facility] Last Admin: 10/08/16 10:06 Dose: 81 mg Clopidogrel Bisulfate (Plavix) 75 mg PO DAILY [facility] Last Admin: 10/08/16 10:06 Dose: 75 mg Heparin Sodium (Porcine) (Heparin) 5,000 units SC Q8 [facility] Last Admin: 10/09/16 06:18 Dose: 5,000 units Sodium Chloride (Sodium Chloride 0.9%) 1,000 mls @ 70 mls/hr IV .[id number] [facility] Last Admin: 10/07/16 16:08 Dose: 70 mls/hr Piperacillin Sod/Tazobactam Sod (Zosyn 2.25 Gm Iv Premix) 50 mls @ 100 mls/hr IVPB Q8H [facility] Last Admin: 10/09/16 06:18 Dose: 100 mls/hr Daptomycin 600 mg/ Sodium (Chloride) 100 mls @ 100 mls/hr IV Q24H [facility] Stop: 10/12/16 18:01 Last Admin: 10/08/16 17:52 Dose: 100 mls/hr Insulin Glargine (Lantus) 10 unit SC DAILY [facility] Last Admin: 10/08/16 14:44 Dose: 10 u Insulin Human Regular (Novolin R) 0 unit SC ACHS [facility] PRN Reason: Protocol Last Admin: 10/09/16 08:38 Dose: 3 unit Losartan Potassium (Cozaar) 50 mg PO DAILY [facility] Last Admin: 10/08/16 10:06 Dose: 50 mg Mupirocin (Bactroban Ointment) 0 gm TOP BID [facility] Last Admin: 10/08/16 17:54 Dose: 1 dose Oxycodone/Acetaminophen (Percocet 5/325 Mg Tab) 1 tab PO Q4 PRN PRN Reason: Pain, moderate (4-7) Stop: 10/10/16 15:55 Pantoprazole Sodium (Protonix Ec Tab) 40 mg PO DAILY [facility] Last Admin: 10/08/16 10:05 Dose: 40 mg - Labs Labs: 10/08/16 07:10 10/09/16 06:47 - Constitutional Appears: No Acute Distress - Head Exam Head Exam: ATRAUMATIC, NORMOCEPHALIC - Eye Exam Eye Exam: EOMI Pupil Exam: PERRL - ENT Exam ENT Exam: Mucous Membranes Moist - Respiratory Exam Respiratory Exam: Clear to Ausculation Bilateral, NORMAL BREATHING PATTERN - Cardiovascular Exam Cardiovascular Exam: RRR, +S1, +S2 - GI/Abdominal Exam GI & Abdominal Exam: Soft, Normal Bowel Sounds. absent: Tenderness - Extremities Exam Additional comments: left foot edematous b/l feet cold to touch; faint pedal pulses left 4th toe black on dorsal aspect extending along metatarsal bone and plantar aspect; no drainage - Back Exam Back Exam: absent: CVA tenderness (L), CVA tenderness (R) - Neurological Exam Neurological Exam: Alert, Awake, CN II-XII Intact, Oriented x3 - Psychiatric Exam Psychiatric exam: Normal Affect, Normal Mood - Skin Skin Exam: Dry, Intact, Warm Assessment and Plan - Assessment and Plan (Free Text) Plan: 1. Gangrenous Toe Vascular Consult, Dr. Brown, help appreciated Daptomycin 600 mg IVPB Q24H Zosyn 2.25gm IVPB Q8H (started 10/07/16) NS @ 70 cc/hr Nursing communication to gently wash left foot with saline daily Left foot x ray results: mild hallux deformity with degenerative changes. Diffuse osteopenia. Productive changes of 3rd and 4th metatarsal, dorsal aspect of midfoot, and level medial mallelolus (see full report). F/U Left foot MRI ID consult - Dr. Hauser - help appreciated Podiatry consult - Dr. Gaytan - help appreciated 2. Leukocytosis Likely secondary to gangrene Monitor CBC 3. PAD F/U arterial dopplers Vascular Consult, Dr. Brown, help appreciated 4. Acute on chronic kidney injury BUN/Cr: 40/1.7 NS @ 70 cc/hr Holding lasix Neprhology Consult, Dr. Hernandez, help appreciated hydration and mucomyst to try to prep patient for angiogram Monitor BUN/Cr 5. History of DM Accuchecks ACHS RISS HA1C 10.0 Hold home metformin 850mg PO 6. History of CAD Continue home ASA 81mg PO daily Continue home Plavix 75mg PO daily 7. History of CHF Hold home lasix 20 mg PO daily secondary to acute on chronic kidney injury CXR 10/07/16 - diffuse increased interstitial lung markings which may represent mild edema and/or infiltrate. Patchy increased makrings at the left lung base. Small nodular density at the medial left upper lung zone may represent vessel ( please see full report) 8. History of Hypothyroidism Patient not on any home medications for this TSH 4.47 Free T4 1.25 9. History of HTN Continue home Losartan 50 mg PO daily 10. Prophylactic Measures Heparin 5000U SC Q8H SCDs contraindicated secondary to PVD and gangrene Protonix 40mg PO daily <Tahir Garcia - Last Filed: 10/10/16 08:46> Objective - Vital Signs/Intake and Output Vital Signs (last 24 hours): Temp Pulse Resp BP Pulse Ox 98.6 F 97 H 20 147/70 97 10/09/16 23:43 10/09/16 23:43 10/09/16 23:43 10/09/16 23:43 10/09/16 23:43 Intake and Output: 10/10/16 10/10/16 06:59 18:59 Intake Total 950 Balance 950 - Medications Medications: Current Medications Acetylcysteine (Acetylcysteine 20%) 3 ml PO Q12 [facility] Last Admin: 10/09/16 22:02 Dose: 3 ml Aspirin (Aspirin Chewable) 81 mg PO DAILY [facility] Last Admin: 10/09/16 10:09 Dose: 81 mg Clopidogrel Bisulfate (Plavix) 75 mg PO DAILY [facility] Last Admin: 10/09/16 10:09 Dose: 75 mg Heparin Sodium (Porcine) (Heparin) 5,000 units SC Q8 [facility] Last Admin: 10/10/16 05:48 Dose: 5,000 units Piperacillin Sod/Tazobactam Sod (Zosyn 2.25 Gm Iv Premix) 50 mls @ 100 mls/hr IVPB Q8H [facility] Last Admin: 10/10/16 06:07 Dose: 100 mls/hr Daptomycin 600 mg/ Sodium (Chloride) 100 mls @ 100 mls/hr IV Q24H [facility] Stop: 10/12/16 18:01 Last Admin: 10/09/16 17:55 Dose: 100 mls/hr Sodium Chloride (Sodium Chloride 0.45%) 1,000 mls @ 100 mls/hr IV .Q10H [facility] Last Admin: 10/10/16 06:54 Dose: Not Given Insulin Glargine (Lantus) 10 unit SC DAILY [facility] Last Admin: 10/09/16 10:26 Dose: 10 u Insulin Human Regular (Novolin R) 0 unit SC ACHS [facility] PRN Reason: Protocol Last Admin: 10/10/16 08:30 Dose: 4 unit Lorazepam (Ativan) 1 mg IVP Q6H PRN PRN Reason: Anxiety Last Admin: 10/09/16 16:33 Dose: 1 mg Losartan Potassium (Cozaar) 50 mg PO DAILY [facility] Last Admin: 10/09/16 10:13 Dose: 50 mg Mupirocin (Bactroban Ointment) 0 gm TOP BID [facility] Last Admin: 10/09/16 18:34 Dose: 1 applic Oxycodone/Acetaminophen (Percocet 5/325 Mg Tab) 1 tab PO Q4 PRN PRN Reason: Pain, moderate (4-7) Stop: 10/10/16 15:55 Pantoprazole Sodium (Protonix Ec Tab) 40 mg PO DAILY [facility] Last Admin: 10/09/16 10:09 Dose: 40 mg - Labs Labs: 10/10/16 08:12 10/10/16 08:12 Attending/Attestation - Attestation I have personally seen and examined this patient.: Yes I have fully participated in the care of the patient.: Yes I have reviewed all pertinent clinical information, including history, physical exam and plan: Yes Notes (Text): 10/10/16 08:44 Patient was seen and examined at bedside with the resident We will continue IV antibiotics so for gangrenous toe Podiatry and vascular surgery on boardworkup is in progress. Renal function is improvingcreatinine is trending down We will continue hydration for now and holding the diuretics. Nephrology consultation has been requested I discussed the plan of care with the resident and agree with the assessment and plan as documented above.
[2016-10-09] MEDS: Pantoprazole 40 mg EC Tab PO SCH (10:09)
[2016-10-09] MEDS: Acetylcysteine 20% Inhal Soln (4ml) PO SCH ×2 (10:13→22:02)
[2016-10-09] MEDS: (Lantus) Insulin Glargine, Recombinant SC SCH (10:26)
--- NOTE | 2016-10-09 10:36 | CP.PCM.PN ---
Subjective - Date & Time of Evaluation Date of Evaluation: 10/09/16 Time of Evaluation: 10:31 - Subjective Subjective: 81 y/o male with left 4th digit gangrene. Patient is awake in bed, appears alert but does not communicate at this time. Objective - Vital Signs/Intake and Output Vital Signs (last 24 hours): Temp Pulse Resp BP Pulse Ox 98.0 F 89 20 152/63 H 96 10/09/16 07:00 10/09/16 07:00 10/09/16 07:00 10/09/16 07:00 10/09/16 07:00 Intake and Output: 10/09/16 10/09/16 06:59 18:59 Intake Total 710 Output Total 350 Balance 360 - Medications Medications: Current Medications Acetylcysteine (Acetylcysteine 20%) 3 ml PO Q12 [facility] Last Admin: 10/09/16 10:13 Dose: 3 ml Aspirin (Aspirin Chewable) 81 mg PO DAILY [facility] Last Admin: 10/09/16 10:09 Dose: 81 mg Clopidogrel Bisulfate (Plavix) 75 mg PO DAILY [facility] Last Admin: 10/09/16 10:09 Dose: 75 mg Heparin Sodium (Porcine) (Heparin) 5,000 units SC Q8 [facility] Last Admin: 10/09/16 06:18 Dose: 5,000 units Sodium Chloride (Sodium Chloride 0.9%) 1,000 mls @ 70 mls/hr IV .[id number] [facility] Last Admin: 10/07/16 16:08 Dose: 70 mls/hr Piperacillin Sod/Tazobactam Sod (Zosyn 2.25 Gm Iv Premix) 50 mls @ 100 mls/hr IVPB Q8H [facility] Last Admin: 10/09/16 06:18 Dose: 100 mls/hr Daptomycin 600 mg/ Sodium (Chloride) 100 mls @ 100 mls/hr IV Q24H [facility] Stop: 10/12/16 18:01 Last Admin: 10/08/16 17:52 Dose: 100 mls/hr Insulin Glargine (Lantus) 10 unit SC DAILY [facility] Last Admin: 10/08/16 14:44 Dose: 10 u Insulin Human Regular (Novolin R) 0 unit SC ACHS [facility] PRN Reason: Protocol Last Admin: 10/09/16 08:38 Dose: 3 unit Losartan Potassium (Cozaar) 50 mg PO DAILY [facility] Last Admin: 10/09/16 10:13 Dose: 50 mg Mupirocin (Bactroban Ointment) 0 gm TOP BID [facility] Last Admin: 10/08/16 17:54 Dose: 1 dose Oxycodone/Acetaminophen (Percocet 5/325 Mg Tab) 1 tab PO Q4 PRN PRN Reason: Pain, moderate (4-7) Stop: 10/10/16 15:55 Pantoprazole Sodium (Protonix Ec Tab) 40 mg PO DAILY [facility] Last Admin: 10/09/16 10:09 Dose: 40 mg - Labs Labs: 10/08/16 07:10 10/09/16 06:47 - Constitutional Appears: Well, Non-toxic - Neurological Exam Neurological Exam: Alert, Awake - Psychiatric Exam Psychiatric exam: Normal Affect, Normal Mood - Skin Skin Exam: Erythema, Warm - Additional Findings Additional findings: Vasc: DP 1/4 b/l, PT non palp, Temp gradient is increased with feetcool to touch , CAp fill time < 5 s Derm: Grossly there is a gangrenout 4th digit noticeable with increased erythema surrounding the digit and on dorsum of foot, diffuse edema is noted, there is maceration in the 3/4 interspace, wound does not probe to bone at this time, surroudning mottling of skin is noted Neuro: Grossly diminished Ortho: limited exam. Assessment and Plan - Assessment and Plan (Free Text) Assessment: 81 y/o male with left 4th gangrenous digit. Plan: Patient evaluated and cahrt reviewed. Discussed in detail with Dr. Gaytan, Awaiting vascular intervention prior to decision of digit. Cr trending down today but still elevated; Redressed with betadine DSD. Will continue to follow.
--- NOTE | 2016-10-09 11:45 | CP.PCM.PN ---
Subjective - Date & Time of Evaluation Date of Evaluation: 10/09/16 Time of Evaluation: 11:43 - Subjective Subjective: Surgery: Dr. Brown Patient more awake today. He has no complaints. He denies chest pain or SOB. continues to have leg swelling. Objective - Vital Signs/Intake and Output Vital Signs (last 24 hours): Temp Pulse Resp BP Pulse Ox 98.0 F 89 20 152/63 H 96 10/09/16 07:00 10/09/16 07:00 10/09/16 07:00 10/09/16 07:00 10/09/16 07:00 Intake and Output: 10/09/16 10/09/16 06:59 18:59 Intake Total 710 Output Total 350 Balance 360 - Medications Medications: Current Medications Acetylcysteine (Acetylcysteine 20%) 3 ml PO Q12 [facility] Last Admin: 10/09/16 10:13 Dose: 3 ml Aspirin (Aspirin Chewable) 81 mg PO DAILY [facility] Last Admin: 10/09/16 10:09 Dose: 81 mg Clopidogrel Bisulfate (Plavix) 75 mg PO DAILY [facility] Last Admin: 10/09/16 10:09 Dose: 75 mg Heparin Sodium (Porcine) (Heparin) 5,000 units SC Q8 [facility] Last Admin: 10/09/16 06:18 Dose: 5,000 units Piperacillin Sod/Tazobactam Sod (Zosyn 2.25 Gm Iv Premix) 50 mls @ 100 mls/hr IVPB Q8H [facility] Last Admin: 10/09/16 06:18 Dose: 100 mls/hr Daptomycin 600 mg/ Sodium (Chloride) 100 mls @ 100 mls/hr IV Q24H [facility] Stop: 10/12/16 18:01 Last Admin: 10/08/16 17:52 Dose: 100 mls/hr Sodium Chloride (Sodium Chloride 0.45%) 1,000 mls @ 100 mls/hr IV .Q10H [facility] Insulin Glargine (Lantus) 10 unit SC DAILY [facility] Last Admin: 10/09/16 10:26 Dose: 10 u Insulin Human Regular (Novolin R) 0 unit SC ACHS [facility] PRN Reason: Protocol Last Admin: 10/09/16 08:38 Dose: 3 unit Losartan Potassium (Cozaar) 50 mg PO DAILY [facility] Last Admin: 10/09/16 10:13 Dose: 50 mg Mupirocin (Bactroban Ointment) 0 gm TOP BID [facility] Last Admin: 10/08/16 17:54 Dose: 1 dose Oxycodone/Acetaminophen (Percocet 5/325 Mg Tab) 1 tab PO Q4 PRN PRN Reason: Pain, moderate (4-7) Stop: 10/10/16 15:55 Pantoprazole Sodium (Protonix Ec Tab) 40 mg PO DAILY [facility] Last Admin: 10/09/16 10:09 Dose: 40 mg - Labs Labs: 10/08/16 07:10 10/09/16 06:47 - Constitutional Appears: Non-toxic, No Acute Distress - Head Exam Head Exam: ATRAUMATIC, NORMOCEPHALIC - Eye Exam Eye Exam: EOMI, Normal appearance - ENT Exam ENT Exam: Mucous Membranes Moist - Respiratory Exam Respiratory Exam: NORMAL BREATHING PATTERN. absent: Respiratory Distress - Cardiovascular Exam Cardiovascular Exam: REGULAR RHYTHM. absent: Tachycardia - GI/Abdominal Exam GI & Abdominal Exam: Soft. absent: Distended, Tenderness - Extremities Exam Additional comments: DP faint b/l, PT non palp 4th digit gangrenous toe - Neurological Exam Neurological Exam: Alert, Awake - Skin Skin Exam: Dry, Warm Assessment and Plan - Assessment and Plan (Free Text) Assessment: 81 y/o male w/ 4th toe gangrene, undergoing vascular evaluation Plan: -recommend nephrology consult for elevated creatinine -patient will need CT angio for vascular evaluation however kidney function poor -cont mucomyst and gentle fluid hydration -will await studies to determine surgical intervention -d/w Dr. Stephanie Grimes PGY1
[2016-10-09] MEDS: Sodium Chloride 0.45% 1,000 ML IV SCH ×2 (12:00→21:49)
[2016-10-09] MEDS: DAPTOmycin 600 MG in Sodium Chloride 0.9% 100 ML IV SCH (17:55)
[2016-10-10] MEDS: Sodium Chloride 0.45% 1,000 ML IV SCH ×3 (05:38→22:05)
[2016-10-10] MEDS: Piperacill/Tazo 2.25gm in Dex 50 ML IVPB SCH ×3 (06:07→22:04)
--- NOTE | 2016-10-10 08:07 | CP.PCM.PN ---
Subjective - Date & Time of Evaluation Date of Evaluation: 10/10/16 Time of Evaluation: 08:05 - Subjective Subjective: Surgery: Dr. Brown Patient complains of neuropathic pain in the feet bilaterally when touched. Otherwise no complaints. Per nursing no acute events overnight. Objective - Vital Signs/Intake and Output Vital Signs (last 24 hours): Temp Pulse Resp BP Pulse Ox 98.6 F 97 H 20 147/70 97 10/09/16 23:43 10/09/16 23:43 10/09/16 23:43 10/09/16 23:43 10/09/16 23:43 Intake and Output: 10/10/16 10/10/16 06:59 18:59 Intake Total 950 Balance 950 - Medications Medications: Current Medications Acetylcysteine (Acetylcysteine 20%) 3 ml PO Q12 [facility] Last Admin: 10/09/16 22:02 Dose: 3 ml Aspirin (Aspirin Chewable) 81 mg PO DAILY [facility] Last Admin: 10/09/16 10:09 Dose: 81 mg Clopidogrel Bisulfate (Plavix) 75 mg PO DAILY [facility] Last Admin: 10/09/16 10:09 Dose: 75 mg Heparin Sodium (Porcine) (Heparin) 5,000 units SC Q8 [facility] Last Admin: 10/10/16 05:48 Dose: 5,000 units Piperacillin Sod/Tazobactam Sod (Zosyn 2.25 Gm Iv Premix) 50 mls @ 100 mls/hr IVPB Q8H [facility] Last Admin: 10/10/16 06:07 Dose: 100 mls/hr Daptomycin 600 mg/ Sodium (Chloride) 100 mls @ 100 mls/hr IV Q24H [facility] Stop: 10/12/16 18:01 Last Admin: 10/09/16 17:55 Dose: 100 mls/hr Sodium Chloride (Sodium Chloride 0.45%) 1,000 mls @ 100 mls/hr IV .Q10H [facility] Last Admin: 10/10/16 06:54 Dose: Not Given Insulin Glargine (Lantus) 10 unit SC DAILY [facility] Last Admin: 10/09/16 10:26 Dose: 10 u Insulin Human Regular (Novolin R) 0 unit SC ACHS [facility] PRN Reason: Protocol Last Admin: 10/09/16 21:49 Dose: Not Given Lorazepam (Ativan) 1 mg IVP Q6H PRN PRN Reason: Anxiety Last Admin: 10/09/16 16:33 Dose: 1 mg Losartan Potassium (Cozaar) 50 mg PO DAILY [facility] Last Admin: 10/09/16 10:13 Dose: 50 mg Mupirocin (Bactroban Ointment) 0 gm TOP BID [facility] Last Admin: 10/09/16 18:34 Dose: 1 applic Oxycodone/Acetaminophen (Percocet 5/325 Mg Tab) 1 tab PO Q4 PRN PRN Reason: Pain, moderate (4-7) Stop: 10/10/16 15:55 Pantoprazole Sodium (Protonix Ec Tab) 40 mg PO DAILY [facility] Last Admin: 10/09/16 10:09 Dose: 40 mg - Labs Labs: 10/08/16 07:10 10/09/16 06:47 - Constitutional Appears: Non-toxic, No Acute Distress - Head Exam Head Exam: ATRAUMATIC, NORMOCEPHALIC - Eye Exam Eye Exam: EOMI, Normal appearance - ENT Exam ENT Exam: Mucous Membranes Moist - Respiratory Exam Respiratory Exam: NORMAL BREATHING PATTERN. absent: Respiratory Distress - Cardiovascular Exam Cardiovascular Exam: REGULAR RHYTHM. absent: Tachycardia - Extremities Exam Additional comments: Left toe gangrene w/ weeping wound between digits. malodorous. lateral side of left foot is cool not cold to touch. pulses not identifiable. - Neurological Exam Neurological Exam: Awake - Skin Skin Exam: Dry, Warm Assessment and Plan - Assessment and Plan (Free Text) Assessment: 81 y/o male w/ gangrene of left toe, needs vascular evaluation Plan: -f/u am labs -need ct w/ runoff -needs hydration and mucomyst for kidney function -w/ obtain studies w/ kidney function improves -further vascular intervention pending studies -cont podiatry care for toe gangrene -cont abx -further recs per Dr. Stephanie Grimes PGY1
[2016-10-10 08:16] LABS: BASO # 0.1 K/uL (0.0-0.2); BASO % 0.5 % (0.0-2.0); EOS # 0.3 K/uL (0.0-0.7); EOS % 2.3 % (0.0-4.0); HEMATOCRIT 32.3 % (35.0-51.0); LYMPH # 2.2 K/uL (1.0-4.3); LYMPH % 19.1 % (20.0-40.0); MEAN CELL VOLUME 70.3 fL (80.0-94.0); MEAN CORPUSCULAR HEMOGLOBIN 21.8 pg (27.0-31.0); MEAN PLATELET VOLUME 8.7 fL (7.2-11.7); MONO # 1.5 K/uL (0.0-0.8); MONO % 12.9 % (0.0-10.0); RED CELL DISTRIBUTION WIDTH 18.8 % (11.5-14.5); WHITE BLOOD COUNT 11.3 K/uL (4.8-10.8)
[2016-10-10] MEDS: (Novolin R) Insulin Human Regular 100 units/ml vial SC SCH ×4 (08:30→22:22)
[2016-10-10 08:31] LABS: ALB/GLOB RATIO 0.9 (1.0-2.1); BILIRUBIN,TOTAL 0.8 mg/dL (0.2-1.3); CALCIUM 8.3 mg/dl (8.6-10.4); PHOSPHOROUS 2.7 mg/dL (2.5-4.5); TOTAL PROTEIN 7.5 g/dL (6.3-8.3)
[2016-10-10] MEDS: Pantoprazole 40 mg EC Tab PO SCH (09:02)
--- NOTE | 2016-10-10 10:11 | CP.PCM.PN ---
<Danny Vidales - Last Filed: 10/10/16 14:27> Subjective - Date & Time of Evaluation Date of Evaluation: 10/10/16 Time of Evaluation: 07:55 - Subjective Subjective: PGY-1 Medicine Progress Note for Dr. Garcia Patient seen and examined at bedside. No acute event overnight. Patient resting in bed comfortably. Patient is tired and still complaining of pain in L foot. Patient has no other acute complaint at this time. He is tolerating diet and having BM. Patient is being hydrated with IV fluids and mucomyst to prepare his kidneys for angiogram. Denied fever/chills, cp, palpitations, sob, abd pain, n/v /d. Objective - Vital Signs/Intake and Output Vital Signs (last 24 hours): Temp Pulse Resp BP Pulse Ox 97.4 F L 95 H 20 148/75 97 10/10/16 07:44 10/10/16 07:44 10/10/16 07:44 10/10/16 07:44 10/10/16 07:44 Intake and Output: 10/10/16 10/10/16 06:59 18:59 Intake Total 950 Balance 950 - Medications Medications: Current Medications Acetylcysteine (Acetylcysteine 20%) 3 ml PO Q12 [facility] Last Admin: 10/09/16 22:02 Dose: 3 ml Aspirin (Aspirin Chewable) 81 mg PO DAILY [facility] Last Admin: 10/10/16 09:02 Dose: 81 mg Clopidogrel Bisulfate (Plavix) 75 mg PO DAILY [facility] Last Admin: 10/10/16 09:02 Dose: 75 mg Heparin Sodium (Porcine) (Heparin) 5,000 units SC Q8 [facility] Last Admin: 10/10/16 05:48 Dose: 5,000 units Piperacillin Sod/Tazobactam Sod (Zosyn 2.25 Gm Iv Premix) 50 mls @ 100 mls/hr IVPB Q8H [facility] Last Admin: 10/10/16 06:07 Dose: 100 mls/hr Daptomycin 600 mg/ Sodium (Chloride) 100 mls @ 100 mls/hr IV Q24H [facility] Stop: 10/12/16 18:01 Last Admin: 10/09/16 17:55 Dose: 100 mls/hr Sodium Chloride (Sodium Chloride 0.45%) 1,000 mls @ 100 mls/hr IV .Q10H [facility] Last Admin: 10/10/16 06:54 Dose: Not Given Insulin Glargine (Lantus) 10 unit SC DAILY [facility] Last Admin: 10/09/16 10:26 Dose: 10 u Insulin Human Regular (Novolin R) 0 unit SC ACHS [facility] PRN Reason: Protocol Last Admin: 10/10/16 08:30 Dose: 4 unit Lorazepam (Ativan) 1 mg IVP Q6H PRN PRN Reason: Anxiety Last Admin: 10/09/16 16:33 Dose: 1 mg Losartan Potassium (Cozaar) 50 mg PO DAILY [facility] Last Admin: 10/10/16 09:02 Dose: 50 mg Mupirocin (Bactroban Ointment) 0 gm TOP BID [facility] Last Admin: 10/10/16 09:04 Dose: 1 applic Oxycodone/Acetaminophen (Percocet 5/325 Mg Tab) 1 tab PO Q4 PRN PRN Reason: Pain, moderate (4-7) Stop: 10/10/16 15:55 Pantoprazole Sodium (Protonix Ec Tab) 40 mg PO DAILY [facility] Last Admin: 10/10/16 09:02 Dose: 40 mg - Labs Labs: 10/10/16 08:12 10/10/16 08:12 - Constitutional Appears: No Acute Distress - Head Exam Head Exam: ATRAUMATIC, NORMOCEPHALIC - Eye Exam Eye Exam: EOMI, Normal appearance Pupil Exam: PERRL - ENT Exam ENT Exam: Mucous Membranes Moist - Neck Exam Neck Exam: Normal Inspection - Respiratory Exam Respiratory Exam: Clear to Ausculation Bilateral, NORMAL BREATHING PATTERN - Cardiovascular Exam Cardiovascular Exam: RRR, +S1, +S2 - GI/Abdominal Exam GI & Abdominal Exam: Soft, Normal Bowel Sounds. absent: Tenderness - Extremities Exam Extremities Exam: Tenderness Additional comments: left TTP b/l feet cold to touch faint pedal pulses bilaterally left 4th toe black on dorsal aspect extending along metatarsal bone and plantar aspect without drainage - Back Exam Back Exam: absent: CVA tenderness (L), CVA tenderness (R) - Neurological Exam Neurological Exam: Alert, Awake, CN II-XII Intact, Oriented x3 - Psychiatric Exam Psychiatric exam: Flat Affect - Skin Skin Exam: Dry, Intact, Normal Color, Warm Assessment and Plan - Assessment and Plan (Free Text) Plan: 1. Gangrenous Toe Vascular Consult, Dr. Brown, help appreciated Daptomycin 600 mg IVPB Q24H Zosyn 2.25gm IVPB Q8H (started 10/07/16) NS @ 70 cc/hr Nursing communication to gently wash left foot with saline daily Left foot x ray results: mild hallux deformity with degenerative changes. Diffuse osteopenia. Productive changes of 3rd and 4th metatarsal, dorsal aspect of midfoot, and level medial mallelolus (see full report). F/U Left foot MRI ID consult - Dr. Hauser - help appreciated Podiatry consult - Dr. Gaytan - help appreciated 2. Leukocytosis Likely secondary to gangrene Monitor CBC 3. PAD Arterial doppler: 1.) Occluded left posterior tibial artery. No flow detected throughout the vessel. 2.) Continuous monophasic waveforms, beginning at left superficial femoral artery level. Calcific plaques notted throughout bilateral lower extremities. Slightly increased velocities due to vessel narrowing. No evidence of arterial occlusions of bilateral extremity arteries above the knee. (see full report) Vascular Consult, Dr. Brown, help appreciated 4. Acute on chronic kidney injury BUN/Cr: /1.5 NS @ 70 cc/hr Mucomyst Holding lasix Neprhology Consult, Dr. Hernandez, help appreciated hydration and mucomyst to try to prep patient for angiogram Monitor BUN/Cr 5. History of DM Accuchecks ACHS RISS HA1C 10.0 Hold home metformin 850mg PO 6. History of CAD ASA 81mg PO daily Plavix 75mg PO daily 7. History of CHF Hold home lasix 20 mg PO daily secondary to acute on chronic kidney injury CXR 10/07/16 - diffuse increased interstitial lung markings which may represent mild edema and/or infiltrate. Patchy increased markings at the left lung base. Small nodular density at the medial left upper lung zone may represent vessel ( please see full report) 8. History of Hypothyroidism Patient not on any home medications for this TSH 4.47 Free T4 1.25 9. History of HTN Continue home Losartan 50 mg PO daily 10. Prophylactic Measures Heparin 5000U SC Q8H SCDs contraindicated secondary to PVD and gangrene Protonix 40mg PO daily <Tahir Garcia - Last Filed: 10/10/16 17:51> Objective - Vital Signs/Intake and Output Vital Signs (last 24 hours): Temp Pulse Resp BP Pulse Ox 98.8 F 97 H 20 143/68 98 10/10/16 16:00 10/10/16 16:00 10/10/16 16:00 10/10/16 16:00 10/10/16 16:00 Intake and Output: 10/10/16 10/10/16 06:59 18:59 Intake Total 950 Balance 950 - Medications Medications: Current Medications Acetylcysteine (Acetylcysteine 20%) 3 ml PO Q12 [facility] Last Admin: 10/09/16 22:02 Dose: 3 ml Aspirin (Aspirin Chewable) 81 mg PO DAILY [facility] Last Admin: 10/10/16 09:02 Dose: 81 mg Clopidogrel Bisulfate (Plavix) 75 mg PO DAILY [facility] Last Admin: 10/10/16 09:02 Dose: 75 mg Piperacillin Sod/Tazobactam Sod (Zosyn 2.25 Gm Iv Premix) 50 mls @ 100 mls/hr IVPB Q8H [facility] Last Admin: 10/10/16 16:00 Dose: 100 mls/hr Daptomycin 600 mg/ Sodium (Chloride) 100 mls @ 100 mls/hr IV Q24H [facility] Stop: 10/12/16 18:01 Last Admin: 10/09/16 17:55 Dose: 100 mls/hr Sodium Chloride (Sodium Chloride 0.45%) 1,000 mls @ 100 mls/hr IV .Q10H [facility] Last Admin: 10/10/16 06:54 Dose: Not Given Insulin Glargine (Lantus) 10 unit SC DAILY [facility] Last Admin: 10/10/16 11:00 Dose: 10 u Insulin Human Regular (Novolin R) 0 unit SC ACHS [facility] PRN Reason: Protocol Last Admin: 10/10/16 12:29 Dose: 3 unit Lorazepam (Ativan) 1 mg IVP Q6H PRN PRN Reason: Anxiety Last Admin: 10/09/16 16:33 Dose: 1 mg Losartan Potassium (Cozaar) 50 mg PO DAILY [facility] Last Admin: 10/10/16 09:02 Dose: 50 mg Mupirocin (Bactroban Ointment) 0 gm TOP BID [facility] Last Admin: 10/10/16 09:04 Dose: 1 applic Pantoprazole Sodium (Protonix Ec Tab) 40 mg PO DAILY [facility] Last Admin: 10/10/16 09:02 Dose: 40 mg - Labs Labs: 10/10/16 08:12 10/10/16 08:12 Attending/Attestation - Attestation I have personally seen and examined this patient.: Yes I have fully participated in the care of the patient.: Yes I have reviewed all pertinent clinical information, including history, physical exam and plan: Yes Notes (Text): 10/10/16 17:50 Patient was seen and examined at bedside with the resident Patient is somnolent but easily arousable Continue IV antibiotics for infection of the left fourth toe Podiatry and vascular surgery workup is in progress Discussed the plan of care with the resident and agree with the above history and physical and assessment/plan by the resident.
--- NOTE | 2016-10-10 10:21 | CP.PCM.CON ---
History of Present Illness - History of Present Illness History of Present Illness: pt seen and examined, full consult is dictated #[id number] pt will have a mild risk for contrast induced nephropathy, the risk of s.cr to increase and KYAW is about 25 %, requiring Hd is about 5 % if pt's family agrees for the risk , you can consider ct angiogram and continue ivf nf at 70 ml/hr continue mucomyst 20 % 3 ml q 12 hrx3 doses follow up bmp Past Patient History - Infectious Disease Hx of Infectious Diseases: None - Tetanus Immunizations Tetanus Immunization: Unknown - Past Medical History & Family History Past Medical History?: Yes - Past Social History Smoking Status: Never Smoked - CARDIAC Hx Cardiac Disorders: Yes Hx Hypercholesterolemia: Yes Hx Hypertension: Yes - PULMONARY Hx Respiratory Disorders: No - NEUROLOGICAL HX Cerebrovascular Accident: Yes - HEENT Hx HEENT Problems: Yes (glasses) Hx Cataracts: Yes (right) - RENAL Hx Chronic Kidney Disease: No - ENDOCRINE/METABOLIC Hx Diabetes Mellitus Type 2: Yes Hx Hypothyroidism: Yes - HEMATOLOGICAL/ONCOLOGICAL Hx Blood Disorders: No - INTEGUMENTARY Hx Dermatological Problems: No - MUSCULOSKELETAL/RHEUMATOLOGICAL Hx Arthritis: Yes - GASTROINTESTINAL Hx Gastrointestinal Disorders: No - GENITOURINARY/GYNECOLOGICAL Hx Genitourinary Disorders: Yes (BPH) Hx Incontinence: Yes Hx Prostate Problems: Yes (prostate surgery in 2013) - PSYCHIATRIC Hx Substance Use: No - SURGICAL HISTORY Hx Cholecystectomy: Yes - ANESTHESIA Hx Anesthesia: Yes Hx Anesthesia Reactions: No Hx Malignant Hyperthermia: No Meds Allergies/Adverse Reactions: Allergies Allergy/AdvReac Type Severity Reaction Status Date / Time No Known Allergies Allergy Verified 10/07/16 13:11 - Medications Medications: Current Medications Acetylcysteine (Acetylcysteine 20%) 3 ml PO Q12 [facility] Last Admin: 10/09/16 22:02 Dose: 3 ml Aspirin (Aspirin Chewable) 81 mg PO DAILY [facility] Last Admin: 10/10/16 09:02 Dose: 81 mg Clopidogrel Bisulfate (Plavix) 75 mg PO DAILY [facility] Last Admin: 10/10/16 09:02 Dose: 75 mg Heparin Sodium (Porcine) (Heparin) 5,000 units SC Q8 [facility] Last Admin: 10/10/16 05:48 Dose: 5,000 units Piperacillin Sod/Tazobactam Sod (Zosyn 2.25 Gm Iv Premix) 50 mls @ 100 mls/hr IVPB Q8H [facility] Last Admin: 10/10/16 06:07 Dose: 100 mls/hr Daptomycin 600 mg/ Sodium (Chloride) 100 mls @ 100 mls/hr IV Q24H [facility] Stop: 10/12/16 18:01 Last Admin: 10/09/16 17:55 Dose: 100 mls/hr Sodium Chloride (Sodium Chloride 0.45%) 1,000 mls @ 100 mls/hr IV .Q10H [facility] Last Admin: 10/10/16 06:54 Dose: Not Given Insulin Glargine (Lantus) 10 unit SC DAILY [facility] Last Admin: 10/09/16 10:26 Dose: 10 u Insulin Human Regular (Novolin R) 0 unit SC ACHS [facility] PRN Reason: Protocol Last Admin: 10/10/16 08:30 Dose: 4 unit Lorazepam (Ativan) 1 mg IVP Q6H PRN PRN Reason: Anxiety Last Admin: 10/09/16 16:33 Dose: 1 mg Losartan Potassium (Cozaar) 50 mg PO DAILY [facility] Last Admin: 10/10/16 09:02 Dose: 50 mg Mupirocin (Bactroban Ointment) 0 gm TOP BID [facility] Last Admin: 10/10/16 09:04 Dose: 1 applic Oxycodone/Acetaminophen (Percocet 5/325 Mg Tab) 1 tab PO Q4 PRN PRN Reason: Pain, moderate (4-7) Stop: 10/10/16 15:55 Pantoprazole Sodium (Protonix Ec Tab) 40 mg PO DAILY [facility] Last Admin: 10/10/16 09:02 Dose: 40 mg Results - Vital Signs Recent Vital Signs: Last Vital Signs Temp 97.4 F L 10/10/16 07:44 Pulse 95 H 10/10/16 07:44 Resp 20 10/10/16 07:44 BP 148/75 10/10/16 07:44 Pulse Ox 97 10/10/16 07:44 - Labs Result Diagrams: 10/10/16 08:12 10/10/16 08:12 Labs: Laboratory Results - last 24 hr 10/09/16 10/09/16 10/09/16 11:59 16:30 21:38 WBC RBC Hgb Hct MCV MCH MCHC RDW Plt Count MPV Neut % (Auto) Lymph % (Auto) Wright % (Auto) Eos % (Auto) Baso % (Auto) Neut # Lymph # Wright # Eos # Baso # Sodium Potassium Chloride Carbon Dioxide Anion Gap BUN Creatinine Est GFR ( Amer) Est GFR (Non-Af Amer) POC Glucose (mg/dL) 257 H 221 H 218 H Random Glucose Calcium Phosphorus Magnesium Total Bilirubin AST ALT Alkaline Phosphatase Total Protein Albumin Globulin Albumin/Globulin Ratio 10/10/16 10/10/16 08:12 08:36 WBC 11.3 H RBC 4.60 Hgb 10.0 L Hct 32.3 L MCV 70.3 L MCH 21.8 L MCHC 31.0 L RDW 18.8 H Plt Count 225 MPV 8.7 Neut % (Auto) 65.2 Lymph % (Auto) 19.1 L Wright % (Auto) 12.9 H Eos % (Auto) 2.3 Baso % (Auto) 0.5 Neut # 7.4 H Lymph # 2.2 Wright # 1.5 H Eos # 0.3 Baso # 0.1 Sodium 139 Potassium 4.0 Chloride 100 Carbon Dioxide 24 Anion Gap 20 BUN 25 H Creatinine 1.5 Est GFR ( Amer) 54 Est GFR (Non-Af Amer) 45 POC Glucose (mg/dL) 265 H Random Glucose 147 H Calcium 8.3 L Phosphorus 2.7 Magnesium 2.0 Total Bilirubin 0.8 AST 32 ALT 32 Alkaline Phosphatase 126 Total Protein 7.5 Albumin 3.6 Globulin 3.9 Albumin/Globulin Ratio 0.9 L
--- NOTE | 2016-10-10 10:38 | CP.PCM.PN ---
Subjective - Date & Time of Evaluation Date of Evaluation: 10/10/16 Time of Evaluation: 10:35 - Subjective Subjective: 81 y/o male with left 4th digit gangrene. Patient is awake in bed, appears minimally communicative at this time. Slight response to verbal . Objective - Vital Signs/Intake and Output Vital Signs (last 24 hours): Temp Pulse Resp BP Pulse Ox 97.4 F L 95 H 20 148/75 97 10/10/16 07:44 10/10/16 07:44 10/10/16 07:44 10/10/16 07:44 10/10/16 07:44 Intake and Output: 10/10/16 10/10/16 06:59 18:59 Intake Total 950 Balance 950 - Medications Medications: Current Medications Acetylcysteine (Acetylcysteine 20%) 3 ml PO Q12 [facility] Last Admin: 10/09/16 22:02 Dose: 3 ml Aspirin (Aspirin Chewable) 81 mg PO DAILY [facility] Last Admin: 10/10/16 09:02 Dose: 81 mg Clopidogrel Bisulfate (Plavix) 75 mg PO DAILY [facility] Last Admin: 10/10/16 09:02 Dose: 75 mg Heparin Sodium (Porcine) (Heparin) 5,000 units SC Q8 [facility] Last Admin: 10/10/16 05:48 Dose: 5,000 units Piperacillin Sod/Tazobactam Sod (Zosyn 2.25 Gm Iv Premix) 50 mls @ 100 mls/hr IVPB Q8H [facility] Last Admin: 10/10/16 06:07 Dose: 100 mls/hr Daptomycin 600 mg/ Sodium (Chloride) 100 mls @ 100 mls/hr IV Q24H [facility] Stop: 10/12/16 18:01 Last Admin: 10/09/16 17:55 Dose: 100 mls/hr Sodium Chloride (Sodium Chloride 0.45%) 1,000 mls @ 100 mls/hr IV .Q10H [facility] Last Admin: 10/10/16 06:54 Dose: Not Given Insulin Glargine (Lantus) 10 unit SC DAILY [facility] Last Admin: 10/09/16 10:26 Dose: 10 u Insulin Human Regular (Novolin R) 0 unit SC ACHS [facility] PRN Reason: Protocol Last Admin: 10/10/16 08:30 Dose: 4 unit Lorazepam (Ativan) 1 mg IVP Q6H PRN PRN Reason: Anxiety Last Admin: 10/09/16 16:33 Dose: 1 mg Losartan Potassium (Cozaar) 50 mg PO DAILY [facility] Last Admin: 10/10/16 09:02 Dose: 50 mg Mupirocin (Bactroban Ointment) 0 gm TOP BID [facility] Last Admin: 10/10/16 09:04 Dose: 1 applic Oxycodone/Acetaminophen (Percocet 5/325 Mg Tab) 1 tab PO Q4 PRN PRN Reason: Pain, moderate (4-7) Stop: 10/10/16 15:55 Pantoprazole Sodium (Protonix Ec Tab) 40 mg PO DAILY [facility] Last Admin: 10/10/16 09:02 Dose: 40 mg - Labs Labs: 10/10/16 08:12 10/10/16 08:12 - Neurological Exam Neurological Exam: Alert, Awake - Psychiatric Exam Psychiatric exam: Normal Affect, Normal Mood - Skin Skin Exam: Erythema, Warm - Additional Findings Additional findings: Vasc: DP 1/4 b/l, PT non palp, Temp gradient is increased with feetcool to touch , CAp fill time < 5 s Derm: Grossly there is a gangrenous 4th digit noticeable with mild erythema surrounding the digit , diffuse edema is noted, there is maceration in the 3/4 interspace, wound does not probe to bone at this time, surroudning mottling of skin is noted Neuro: Grossly diminished Ortho: limited exam. Assessment and Plan - Assessment and Plan (Free Text) Assessment: 81 y/o male with left 4th gangrenous digit. Plan: Patient evaluated and cahrt reviewed. Discussed in detail with Dr. Gaytan, Awaiting CTA prior to intervention of digit; Cr trending down today but still elevated; Redressed with betadine DSD. Will continue to follow.
[2016-10-10] MEDS: (Lantus) Insulin Glargine, Recombinant SC SCH (11:00)
--- NOTE | 2016-10-10 12:20 | VASCLAB ---
STUDY DESCRIPTION: HISTORY: Peripheral Artery Disease PRIORS: None. TECHNIQUE: Pulse volume recording waveforms and segmental pressures of bilateral lower extremities at multiple levels were obtained. Ankle Brachial Indices (ABIs) could not be performed. Report prepared by Lu Cruz RDCS, RVS RIGHT LOWER EXTREMITY: * Brachial artery: Pressure - mmHg. * High thigh: Pressure - mmHg: Ratio - : PVR waveform - Pulsatile * Low thigh: Pressure - mmHg: Ratio - PVR waveform: Pulsatile * Calf: Pressure - mmHg: Ratio - PVR waveform: Pulsatile * Posterior tibial Artery: Pressure - mmHg: Ratio - PVR waveform: Pulsatile * Dorsalis pedis Artery: Pressure - mmHg: Ratio - PVR waveform: Reduced * Great toe: Unable to perform LEFT LOWER EXTREMITY: * Brachial artery: Pressure - mmHg. * High thigh: Pressure - mmHg: Ratio - : PVR waveform - Pulsatile * Low thigh: Pressure - mmHg: Ratio - PVR waveform: Reduced * Calf: Pressure - mmHg: Ratio - PVR waveform: Reduced * Posterior tibial Artery: Pressure - mmHg: Ratio - PVR waveform: None * Dorsalis pedis Artery: Pressure - mmHg: Ratio - PVR waveform: None * Great toe: Unable to perform OTHER FINDINGS: IMPRESSION: Right: Mildly reduced PVR waveforms of the dorsalis pedis artery, suggesting mildly decreased arterial perfusion at the tibial artery level. Left: Reduced PVR waveforms beginning at the superficial femoral artery level, suggesting mild to moderately decreased arterial perfusion. Ankle brachial indices could not be performed, due to IV line in the arm and left leg wounds. CT angiogram recommended as follow up study.
--- NOTE | 2016-10-10 14:27 | VASCLAB ---
PROCEDURE: HISTORY: Peripheral Artery Disease, Arterial ulceration COMPARISON: Last arterial exam 02/15/2006 TECHNIQUE: Grayscale and duplex Doppler evaluation of the bilateral common femoral, femoral, profunda femoral, popliteal, posterior tibial, anterior tibial and dorsalis pedis arteries was performed. Report prepared by Lu Cruz RDCS, RVS FINDINGS: RIGHT LOWER EXTREMITY: * Common Femoral Artery: Peak Systolic Velocity - 146: Doppler Waveform: Triphasic.: Plaque description - Calcific * Profunda Femoral Artery: Peak Systolic Velocity - 204: Doppler Waveform: Triphasic.: Plaque description - Calcific * Femoral Artery o Proximal Segment: Peak Systolic Velocity - 143: Doppler Waveform: Biphasic: Plaque description - Calcific o Middle Segment: Peak Systolic Velocity - 107: Doppler Waveform: Biphasic: Plaque description - o Distal Segment: Peak Systolic Velocity - 135: Doppler Waveform: Biphasic: Plaque description - * Popliteal Artery o Proximal Segment: Peak Systolic Velocity - 100: Doppler Waveform: Biphasic: Plaque description - o Middle Segment: Peak Systolic Velocity - 77: Doppler Waveform: Biphasic: Plaque description - o Distal Segment: Peak Systolic Velocity - 92: Doppler Waveform: Monophasic: Plaque description - * Posterior Tibial Artery: Peak Systolic Velocity - 0: Doppler Waveform: Absent: Plaque description - * Anterior Tibial Artery: Peak Systolic Velocity - 74: Doppler Waveform: Monophasic: Plaque description - LEFT LOWER EXTREMITY: * Common Femoral Artery: Peak Systolic Velocity - 234: Doppler Waveform: Triphasic.: Plaque description - Calcific * Profunda Femoral Artery: Peak Systolic Velocity - 153: Doppler Waveform: Biphasic: Plaque description - Calcific * Femoral Artery o Proximal Segment: Peak Systolic Velocity - 68: Doppler Waveform: Monophasic: Plaque description - Calcific o Middle Segment: Peak Systolic Velocity - 41: Doppler Waveform: Monophasic: Plaque description - o Distal Segment: Peak Systolic Velocity - 20: Doppler Waveform: Monophasic: Plaque description - * Popliteal Artery o Proximal Segment: Peak Systolic Velocity - 20: Doppler Waveform: Monophasic: Plaque description - o Middle Segment: Peak Systolic Velocity - 25: Doppler Waveform: Monophasic: Plaque description - o Distal Segment: Peak Systolic Velocity - 41: Doppler Waveform: Monophasic: Plaque description - * Posterior Tibial Artery: Peak Systolic Velocity - 0: Doppler Waveform: Absent: Plaque description - * Anterior Tibial Artery: Peak Systolic Velocity - 37: Doppler Waveform: Monophasic: Plaque description - OTHER FINDINGS: None. IMPRESSION: RIGHT: 1. Occluded right posterior tibial artery. No flow detected throughout the vessel. 2. Monophasic waveforms noted of the right anterior tibial artery. LEFT: 1.Occluded left posterior tibial artery. No flow detected throughout the vessel. 2. Continuous monophasic waveforms, beginning at the left superficial femoral artery level. Calcific plaques noted throughout bilateral lower extremity arteries. Slightly increased velocities due to vessel narrowing. No evidence of arterial occlusions of bilateral lower extremity arteries, above the knee.
[2016-10-10] MEDS ORDERED: Iodixanol 320 mg/ml 150 ml Bottle IV ONE (16:46)
[2016-10-10] MEDS: DAPTOmycin 600 MG in Sodium Chloride 0.9% 100 ML IV SCH (18:09)
[2016-10-10] MEDS: Acetylcysteine 20% Inhal Soln (4ml) PO SCH (22:05)
[2016-10-11] MEDS: Sodium Chloride 0.45% 1,000 ML IV SCH ×3 (03:00→23:45)
[2016-10-11] MEDS: Piperacill/Tazo 2.25gm in Dex 50 ML IVPB SCH ×3 (06:05→22:30)
[2016-10-11] MEDS: (Novolin R) Insulin Human Regular 100 units/ml vial SC SCH ×4 (07:30→21:26)
--- NOTE | 2016-10-11 08:04 | CP.PCM.PN ---
Subjective - Date & Time of Evaluation Date of Evaluation: 10/11/16 Time of Evaluation: 08:04 - Subjective Subjective: left sfa disease amenable to endovascular Ex will plan angio saturday Objective - Vital Signs/Intake and Output Vital Signs (last 24 hours): Temp Pulse Resp BP Pulse Ox 97.6 F 91 H 20 139/52 L 96 10/11/16 07:28 10/11/16 07:28 10/11/16 07:28 10/11/16 07:28 10/11/16 07:28 Intake and Output: 10/11/16 10/11/16 06:59 18:59 Intake Total 950 1040 Balance 950 1040 - Medications Medications: Current Medications Acetylcysteine (Acetylcysteine 20%) 3 ml PO Q12 [facility] Last Admin: 10/10/16 22:05 Dose: 3 ml Aspirin (Aspirin Chewable) 81 mg PO DAILY [facility] Last Admin: 10/10/16 09:02 Dose: 81 mg Clopidogrel Bisulfate (Plavix) 75 mg PO DAILY [facility] Last Admin: 10/10/16 09:02 Dose: 75 mg Piperacillin Sod/Tazobactam Sod (Zosyn 2.25 Gm Iv Premix) 50 mls @ 100 mls/hr IVPB Q8H [facility] Last Admin: 10/11/16 06:05 Dose: 100 mls/hr Daptomycin 600 mg/ Sodium (Chloride) 100 mls @ 100 mls/hr IV Q24H [facility] Stop: 10/12/16 18:01 Last Admin: 10/10/16 18:09 Dose: 100 mls/hr Sodium Chloride (Sodium Chloride 0.45%) 1,000 mls @ 100 mls/hr IV .Q10H [facility] Last Admin: 10/11/16 03:00 Dose: 100 mls/hr Insulin Glargine (Lantus) 10 unit SC DAILY [facility] Last Admin: 10/10/16 11:00 Dose: 10 u Insulin Human Regular (Novolin R) 0 unit SC ACHS [facility] PRN Reason: Protocol Last Admin: 10/10/16 22:22 Dose: Not Given Lorazepam (Ativan) 1 mg IVP Q6H PRN PRN Reason: Anxiety Last Admin: 10/09/16 16:33 Dose: 1 mg Losartan Potassium (Cozaar) 50 mg PO DAILY [facility] Last Admin: 10/10/16 09:02 Dose: 50 mg Mupirocin (Bactroban Ointment) 0 gm TOP BID [facility] Last Admin: 10/10/16 19:07 Dose: Not Given Pantoprazole Sodium (Protonix Ec Tab) 40 mg PO DAILY [facility] Last Admin: 10/10/16 09:02 Dose: 40 mg - Labs Labs: 10/10/16 08:12 10/10/16 08:12
[2016-10-11 08:09] LABS: BASO # 0.1 K/uL (0.0-0.2); BASO % 0.7 % (0.0-2.0); EOS # 0.2 K/uL (0.0-0.7); EOS % 2.1 % (0.0-4.0); HEMATOCRIT 32.2 % (35.0-51.0); LYMPH # 1.9 K/uL (1.0-4.3); LYMPH % 16.8 % (20.0-40.0); MEAN CELL VOLUME 70.7 fL (80.0-94.0); MEAN CORPUSCULAR HEMOGLOBIN 21.5 pg (27.0-31.0); MEAN CORPUSCULAR HGB CONC 30.5 g/dL (33.0-37.0); MEAN PLATELET VOLUME 8.5 fL (7.2-11.7); MONO # 1.5 K/uL (0.0-0.8); RED CELL DISTRIBUTION WIDTH 18.4 % (11.5-14.5); WHITE BLOOD COUNT 11.4 K/uL (4.8-10.8)
--- NOTE | 2016-10-11 08:37 | CON ---
DATE: 10/10/2016 LOCATION: The patient is located in room 358, bed A. REQUESTING PHYSICIAN: Dr. Brian Kat. REASON FOR RENAL CONSULTATION: Chronic kidney disease for possible angiogram and left foot infection. HISTORY OF PRESENT ILLNESS: The patient is an 81-year-old elderly male with a past medical history significant for arthritis, coronary artery disease, CHF, type 2 diabetes, hypertension, hyperlipidemia, hypothyroidism, chronic kidney disease, was admitted on 10/07/2016 for change in color of the left fourth toe and also associated swelling and pain for about 7-8 days. The patient is a poor historian and history was reviewed on the EMR and history obtained from the review of the chart. The patient is following simple commands. The patient is not in acute distress and wants to go back to sleep and denies any chest pain, palpitation. Denies any nausea, vomiting. Denies any shortness of breath. Denies any cough. Denies any abdominal pain. No diarrhea, no constipation, no dysuria or frequency. The patient does complain of swelling of the legs. PAST MEDICAL HISTORY: Arthritis, hypertension, diabetes, coronary artery disease, CHF, hyperlipidemia, hypothyroidism. PAST SURGICAL HISTORY: Status post cholecystectomy. SOCIAL HISTORY: The patient was a smoker, half a pack per day for 30 years. Denies alcohol or drug abuse. Lives with his . ALLERGIES: No known drug allergies. FAMILY HISTORY: Not significant. CURRENT MEDICATIONS: Include as follows: Mucomyst 20% 3 mL q. 12 hours, aspirin 81 mg daily, Bactroban topical and Cozaar 50 mg p.o. daily, daptomycin 600 mg IV q. 24 hours, Lantus insulin 10 units subQ daily, Novolin R for sliding scale, Plavix 75 mg daily, Protonix 40 mg p.o. daily, IV fluids normal saline at 100 mL per hour, Zosyn 2.25 grams IV every 8 hours. REVIEW OF SYSTEMS: Significant for bilateral leg swelling and also this pain and discoloration of the left fourth toe. All other review of systems are reviewed and are negative. PHYSICAL EXAMINATION: VITAL SIGNS: As follows: The patient's blood pressure is 130/75, pulse 95, respiration 20, temperature 97.8, saturation 96%. Height 5 feet 10 inches and weight is 184 pounds. GENERAL: The patient is an 81-year-old elderly male, moderately built, moderately nourished, not in acute distress, following commands appropriately. HEENT: Pupils normal, reactive to light and accommodation. Conjunctivae pink. Sclerae anicteric. Tongue is moist. NECK: Trachea is midline. LUNGS: Symmetric on both sides. Bilateral breath sounds present. Clear on auscultation. CARDIOVASCULAR: [place] in the fifth intercostal space midclavicular line. S1 and S2 audible. No murmur or gallop. ABDOMEN: Normal in appearance, soft, tympanic. No guarding, no rigidity. No hepatosplenomegaly. CENTRAL NERVOUS SYSTEM: The patient is drowsy, responds appropriately. Cranial nerves II-XII grossly intact. Sensory and motor system is within normal limits. EXTREMITIES: The patient has a discoloration of the left fourth toe and swelling over both feet, right more than the left. Dorsalis pedis pulses are not palpable. LABORATORY DATA: Include as follows: As of 10/10/2016, WBC 11.3, hemoglobin 10 , hematocrit is 32.3, MCV 70, platelets 225. Sodium 139, potassium is 4, chloride 100, CO2 24, BUN 25, creatinine 1.7, glucose 127, calcium 8.3, phosphorus 2.1, magnesium 2.0, total bilirubin 0.8, AST 32, ALT 32, alkaline phosphatase is 126, total protein 7.5, albumin is 3.6. His serum creatinine as of 10/07/2016 1.9, 10/08 1.7, and 10/09 serum creatinine 1.7. His other laboratory data reviewed of the EMR. As of 08/27/2016, hemoglobin A1c 8.9 and his ferritin level is 14.4 and BUN and creatinine 30/1.7. As of 08/26/2016, BUN and creatinine is 30/1.6. As of 08/08/2015, his creatinine is 1.4. SUMMARY: 1. The patient is an 81-year-old elderly male with a history of hypertension, diabetes, hyperlipidemia who was admitted with discoloration of the left fourth toe and increased BUN and creatinine. 2. Chronic kidney disease stage III, most likely secondary to diabetic nephropathy, cannot rule out underlying hypertensive nephrosclerosis and . 3. Hypertension. Blood pressure is stable. 4. Gangrenous toe. The patient will have a mild risk for contrast-induced nephropathy with about 25% risk for creatinine going up after the contrast and/ or less than 5% at risk for requiring hemodialysis. PLAN: Continue IV fluids 70-80 mL per hour and normal saline and continue Mucomyst. Repeat BMP in a.m. Overall, prognosis is guarded. Thank you for allowing me to participate in your patient's care. Urinalysis is negative for protein and blood. Will follow with you. Consider ultrasound of the kidneys if unstable. Claudia Hernandez MD cc: [id number] TT: 10/11/2016 01:03:14 Confirmation # [id number] Dictation # [id number] emery HUNT
[2016-10-11 08:40] LABS: CHLORIDE 102 mmol/L (98-107); SODIUM 134 mmol/L (132-148)
[2016-10-11 08:42] LABS: ALB/GLOB RATIO 0.9 (1.0-2.1); ALKALINE PHOSPHATASE 121 U/L (38-126); AST/SGOT 33 U/L (17-59); BILIRUBIN,TOTAL 0.7 mg/dL (0.2-1.3); BLOOD UREA NITROGEN 20 mg/dL (9-20); CARBON DIOXIDE 21 mmol/L (22-30); GFR AFRICAN-AMERICAN > 60; TOTAL PROTEIN 7.2 g/dL (6.3-8.3)
[2016-10-11 08:43] LABS: ALT/SGPT 39 U/L (21-72); CALCIUM 8.2 mg/dl (8.6-10.4); GLUCOSE,RANDOM 140 mg/dL (75-110); MAGNESIUM 1.9 mg/dL (1.6-2.3); PHOSPHOROUS 2.5 mg/dL (2.5-4.5)
[2016-10-11] MEDS: Acetylcysteine 20% Inhal Soln (4ml) PO SCH ×2 (10:00→21:26)
--- NOTE | 2016-10-11 11:31 | CP.PCM.PN ---
<SobeidaDanny - Last Filed: 10/11/16 15:21> Subjective - Date & Time of Evaluation Date of Evaluation: 10/11/16 Time of Evaluation: 07:30 - Subjective Subjective: PGY-1 Medicine Progress Note for Dr. Garcia Patient seen and examined at bedside. Overnight, patient did not sleep much and was disrupting his neighbors. Patient resting tiredly in bed and still complaining of pain in L foot. Patient has no other acute complaint at this time. He is tolerating diet and having BM. Patient is going for Angiogram saturday morning with Dr. Brown. Denied fever/chills, cp, palpitations, sob, abd pain, n/v/d. Objective - Vital Signs/Intake and Output Vital Signs (last 24 hours): Temp Pulse Resp BP Pulse Ox 97.6 F 91 H 20 139/52 L 96 10/11/16 07:28 10/11/16 07:28 10/11/16 07:28 10/11/16 07:28 10/11/16 07:28 Intake and Output: 10/11/16 10/11/16 06:59 18:59 Intake Total 950 1040 Balance 950 1040 - Medications Medications: Current Medications Acetylcysteine (Acetylcysteine 20%) 3 ml PO Q12 [facility] Last Admin: 10/10/16 22:05 Dose: 3 ml Aspirin (Aspirin Chewable) 81 mg PO DAILY [facility] Last Admin: 10/10/16 09:02 Dose: 81 mg Clopidogrel Bisulfate (Plavix) 75 mg PO DAILY [facility] Last Admin: 10/10/16 09:02 Dose: 75 mg Piperacillin Sod/Tazobactam Sod (Zosyn 2.25 Gm Iv Premix) 50 mls @ 100 mls/hr IVPB Q8H [facility] Last Admin: 10/11/16 06:05 Dose: 100 mls/hr Daptomycin 600 mg/ Sodium (Chloride) 100 mls @ 100 mls/hr IV Q24H [facility] Stop: 10/12/16 18:01 Last Admin: 10/10/16 18:09 Dose: 100 mls/hr Sodium Chloride (Sodium Chloride 0.45%) 1,000 mls @ 100 mls/hr IV .Q10H [facility] Last Admin: 10/11/16 03:00 Dose: 100 mls/hr Insulin Glargine (Lantus) 10 unit SC DAILY [facility] Last Admin: 10/10/16 11:00 Dose: 10 u Insulin Human Regular (Novolin R) 0 unit SC ACHS [facility] PRN Reason: Protocol Last Admin: 10/10/16 22:22 Dose: Not Given Lorazepam (Ativan) 1 mg IVP Q6H PRN PRN Reason: Anxiety Last Admin: 10/09/16 16:33 Dose: 1 mg Losartan Potassium (Cozaar) 50 mg PO DAILY [facility] Last Admin: 10/10/16 09:02 Dose: 50 mg Mupirocin (Bactroban Ointment) 0 gm TOP BID [facility] Last Admin: 10/10/16 19:07 Dose: Not Given Pantoprazole Sodium (Protonix Ec Tab) 40 mg PO DAILY [facility] Last Admin: 10/10/16 09:02 Dose: 40 mg - Labs Labs: 10/11/16 08:03 10/11/16 08:03 - Constitutional Appears: No Acute Distress - Head Exam Head Exam: ATRAUMATIC, NORMOCEPHALIC - Eye Exam Eye Exam: EOMI, Normal appearance Pupil Exam: PERRL - ENT Exam ENT Exam: Mucous Membranes Moist - Neck Exam Neck Exam: Normal Inspection - Respiratory Exam Respiratory Exam: Clear to Ausculation Bilateral, NORMAL BREATHING PATTERN - Cardiovascular Exam Cardiovascular Exam: REGULAR RHYTHM, +S1, +S2 - GI/Abdominal Exam GI & Abdominal Exam: Soft, Normal Bowel Sounds. absent: Tenderness - Extremities Exam Extremities Exam: Normal Capillary Refill - Back Exam Back Exam: absent: CVA tenderness (L), CVA tenderness (R) - Neurological Exam Neurological Exam: Alert, Awake, CN II-XII Intact, Oriented x3 - Psychiatric Exam Psychiatric exam: Normal Affect, Normal Mood - Skin Skin Exam: Dry, Warm Additional comments: left TTP b/l feet cold to touch faint pedal pulses bilaterally left 4th toe black on dorsal aspect extending along metatarsal bone and plantar aspect without drainage Assessment and Plan - Assessment and Plan (Free Text) Plan: 1. Gangrenous Toe Vascular Consult, Dr. Brown, help appreciated Daptomycin 600 mg IVPB Q24H Zosyn 2.25gm IVPB Q8H (started 10/07/16) NS @ 70 cc/hr Nursing communication to gently wash left foot with saline daily Left foot x ray results: mild hallux deformity with degenerative changes. Diffuse osteopenia. Productive changes of 3rd and 4th metatarsal, dorsal aspect of midfoot, and level medial mallelolus (see full report). F/U Left foot MRI ID consult - Dr. Hauser - help appreciated Podiatry consult - Dr. Gaytan - help appreciated f/u Abdominal angiography Angiogram Saturday 2. Leukocytosis Likely secondary to gangrene Monitor CBC 3. PAD Arterial doppler: 1.) Occluded left posterior tibial artery. No flow detected throughout the vessel. 2.) Continuous monophasic waveforms, beginning at left superficial femoral artery level. Calcific plaques notted throughout bilateral lower extremities. Slightly increased velocities due to vessel narrowing. No evidence of arterial occlusions of bilateral extremity arteries above the knee. (see full report) Vascular Consult, Dr. Brown, help appreciated Adominal angiography Angiogram Saturday 4. Acute on chronic kidney injury BUN/Cr: 20/1.3 NS @ 70 cc/hr Mucomyst Holding lasix Neprhology Consult, Dr. Hernandez, help appreciated hydration and mucomyst to try to prep patient for angiogram Monitor BUN/Cr 5. History of DM Accuchecks ACHS RISS HA1C 10.0 Hold home metformin 850mg PO 6. History of CAD ASA 81mg PO daily Plavix 75mg PO daily 7. History of CHF Hold home lasix 20 mg PO daily secondary to acute on chronic kidney injury CXR 10/07/16 - diffuse increased interstitial lung markings which may represent mild edema and/or infiltrate. Patchy increased markings at the left lung base. Small nodular density at the medial left upper lung zone may represent vessel ( please see full report) 8. History of Hypothyroidism Patient not on any home medications for this TSH 4.47 Free T4 1.25 9. History of HTN Continue home Losartan 50 mg PO daily 10. Prophylactic Measures Heparin 5000U SC Q8H SCDs contraindicated secondary to PVD and gangrene Protonix 40mg PO daily <Tahir Garcia - Last Filed: 10/11/16 16:43> Objective - Vital Signs/Intake and Output Vital Signs (last 24 hours): Temp Pulse Resp BP Pulse Ox 98.6 F 91 H 20 166/71 H 97 10/11/16 16:00 10/11/16 16:31 10/11/16 16:00 10/11/16 16:00 10/11/16 16:00 Intake and Output: 10/11/16 10/11/16 06:59 18:59 Intake Total 950 1040 Balance 950 1040 - Medications Medications: Current Medications Acetylcysteine (Acetylcysteine 20%) 3 ml PO Q12 [facility] Last Admin: 10/11/16 10:00 Dose: 3 ml Aspirin (Aspirin Chewable) 81 mg PO DAILY [facility] Last Admin: 10/11/16 11:33 Dose: 81 mg Clopidogrel Bisulfate (Plavix) 75 mg PO DAILY [facility] Last Admin: 10/11/16 11:33 Dose: 75 mg Piperacillin Sod/Tazobactam Sod (Zosyn 2.25 Gm Iv Premix) 50 mls @ 100 mls/hr IVPB Q8H [facility] Last Admin: 10/11/16 14:11 Dose: 100 mls/hr Daptomycin 600 mg/ Sodium (Chloride) 100 mls @ 100 mls/hr IV Q24H [facility] Stop: 10/12/16 18:01 Last Admin: 10/10/16 18:09 Dose: 100 mls/hr Sodium Chloride (Sodium Chloride 0.45%) 1,000 mls @ 100 mls/hr IV .Q10H [facility] Last Admin: 10/11/16 14:09 Dose: 100 mls/hr Insulin Glargine (Lantus) 10 unit SC DAILY [facility] Last Admin: 10/11/16 11:34 Dose: 10 u Insulin Human Regular (Novolin R) 0 unit SC ACHS [facility] PRN Reason: Protocol Last Admin: 10/11/16 12:00 Dose: 3 unit Lorazepam (Ativan) 1 mg IVP Q6H PRN PRN Reason: Anxiety Last Admin: 10/09/16 16:33 Dose: 1 mg Losartan Potassium (Cozaar) 50 mg PO DAILY [facility] Last Admin: 10/11/16 11:33 Dose: 50 mg Pantoprazole Sodium (Protonix Ec Tab) 40 mg PO DAILY [facility] Last Admin: 10/11/16 11:33 Dose: 40 mg - Labs Labs: 10/11/16 08:03 10/11/16 08:03 Attending/Attestation - Attestation I have personally seen and examined this patient.: Yes I have fully participated in the care of the patient.: Yes I have reviewed all pertinent clinical information, including history, physical exam and plan: Yes Notes (Text): 10/11/16 16:42 Patient was seen and examined at bedside with the resident today Patient to is status post angiography and found to have left SFA disease and will have therapeutic angiogram tomorrow Patient could not tolerate the MRI of the foot. We will continue current management. Continue IV antibiotics Follow-up recommendations of vascular surgery and podiatry. I agree with the above history and physical and assessment/plan but the resident.
[2016-10-11] MEDS: Pantoprazole 40 mg EC Tab PO SCH (11:33)
[2016-10-11] MEDS: (Lantus) Insulin Glargine, Recombinant SC SCH (11:34)
--- NOTE | 2016-10-11 14:51 | CP.PCM.PN ---
Subjective - Date & Time of Evaluation Date of Evaluation: 10/11/16 Time of Evaluation: 14:49 - Subjective Subjective: 81 y/o male with left 4th digit gangrene and now discoloration of 3rd digit. Patient is awake in bed, appears minimally communicative at this time. Slight response to verbal . Objective - Vital Signs/Intake and Output Vital Signs (last 24 hours): Temp Pulse Resp BP Pulse Ox 97.6 F 91 H 20 139/52 L 96 10/11/16 07:28 10/11/16 07:28 10/11/16 07:28 10/11/16 07:28 10/11/16 07:28 Intake and Output: 10/11/16 10/11/16 06:59 18:59 Intake Total 950 1040 Balance 950 1040 - Medications Medications: Current Medications Acetylcysteine (Acetylcysteine 20%) 3 ml PO Q12 [facility] Last Admin: 10/11/16 10:00 Dose: 3 ml Aspirin (Aspirin Chewable) 81 mg PO DAILY [facility] Last Admin: 10/11/16 11:33 Dose: 81 mg Clopidogrel Bisulfate (Plavix) 75 mg PO DAILY [facility] Last Admin: 10/11/16 11:33 Dose: 75 mg Piperacillin Sod/Tazobactam Sod (Zosyn 2.25 Gm Iv Premix) 50 mls @ 100 mls/hr IVPB Q8H [facility] Last Admin: 10/11/16 14:11 Dose: 100 mls/hr Daptomycin 600 mg/ Sodium (Chloride) 100 mls @ 100 mls/hr IV Q24H [facility] Stop: 10/12/16 18:01 Last Admin: 10/10/16 18:09 Dose: 100 mls/hr Sodium Chloride (Sodium Chloride 0.45%) 1,000 mls @ 100 mls/hr IV .Q10H [facility] Last Admin: 10/11/16 14:09 Dose: 100 mls/hr Insulin Glargine (Lantus) 10 unit SC DAILY [facility] Last Admin: 10/11/16 11:34 Dose: 10 u Insulin Human Regular (Novolin R) 0 unit SC ACHS [facility] PRN Reason: Protocol Last Admin: 10/11/16 12:00 Dose: 3 unit Lorazepam (Ativan) 1 mg IVP Q6H PRN PRN Reason: Anxiety Last Admin: 10/09/16 16:33 Dose: 1 mg Losartan Potassium (Cozaar) 50 mg PO DAILY [facility] Last Admin: 10/11/16 11:33 Dose: 50 mg Mupirocin (Bactroban Ointment) 0 gm TOP BID [facility] Last Admin: 10/11/16 11:44 Dose: 1 applic Pantoprazole Sodium (Protonix Ec Tab) 40 mg PO DAILY [facility] Last Admin: 10/11/16 11:33 Dose: 40 mg - Labs Labs: 10/11/16 08:03 10/11/16 08:03 - Constitutional Appears: Well, Non-toxic - Additional Findings Additional findings: Vasc: DP 1/4 b/l, PT non palp, Temp gradient is increased with feetcool to touch , CAp fill time < 5 s Derm: Grossly there is a gangrenous 4th digit noticeable with mild erythema surrounding the digit , diffuse edema is noted, there is maceration in the 3/4 interspace, wound does not probe to bone at this time, surroudning mottling of skin is noted ; there is noted to be newly formed darkening of skin overlying the 3rd digit as well as along the 3/4 MPJ, Neuro: Grossly diminished Ortho: limited exam. Assessment and Plan - Assessment and Plan (Free Text) Assessment: 81 y/o male with left 4th gangrenous digit. Plan: Patient evaluated and cahrt reviewed. Discussed in detail with Dr. Gaytan, For angio tomorrow following angio will discuss treatment for the digit at this time noted further demarcation; will most likely need form of surgical intervention on the 4th digit atleast. Redressed with betadine DSD. Will continue to follow.
[2016-10-11] MEDS: DAPTOmycin 600 MG in Sodium Chloride 0.9% 100 ML IV SCH (17:59)
--- NOTE | 2016-10-11 18:33 | CP.PCM.PN ---
Subjective - Date & Time of Evaluation Date of Evaluation: 10/11/16 Time of Evaluation: 18:32 - Subjective Subjective: pt seen and examined, follow up consult is dictated #[id number] Objective - Vital Signs/Intake and Output Vital Signs (last 24 hours): Temp Pulse Resp BP Pulse Ox 98.6 F 91 H 20 166/71 H 97 10/11/16 16:00 10/11/16 16:31 10/11/16 16:00 10/11/16 16:00 10/11/16 16:00 Intake and Output: 10/11/16 10/11/16 06:59 18:59 Intake Total 950 1040 Balance 950 1040 - Medications Medications: Current Medications Acetylcysteine (Acetylcysteine 20%) 3 ml PO Q12 [facility] Last Admin: 10/11/16 10:00 Dose: 3 ml Aspirin (Aspirin Chewable) 81 mg PO DAILY [facility] Last Admin: 10/11/16 11:33 Dose: 81 mg Clopidogrel Bisulfate (Plavix) 75 mg PO DAILY [facility] Last Admin: 10/11/16 11:33 Dose: 75 mg Piperacillin Sod/Tazobactam Sod (Zosyn 2.25 Gm Iv Premix) 50 mls @ 100 mls/hr IVPB Q8H [facility] Last Admin: 10/11/16 14:11 Dose: 100 mls/hr Daptomycin 600 mg/ Sodium (Chloride) 100 mls @ 100 mls/hr IV Q24H [facility] Stop: 10/12/16 18:01 Last Admin: 10/11/16 17:59 Dose: 100 mls/hr Sodium Chloride (Sodium Chloride 0.45%) 1,000 mls @ 100 mls/hr IV .Q10H [facility] Last Admin: 10/11/16 14:09 Dose: 100 mls/hr Insulin Glargine (Lantus) 10 unit SC DAILY [facility] Last Admin: 10/11/16 11:34 Dose: 10 u Insulin Human Regular (Novolin R) 0 unit SC ACHS [facility] PRN Reason: Protocol Last Admin: 10/11/16 18:00 Dose: 3 unit Lorazepam (Ativan) 1 mg IVP Q6H PRN PRN Reason: Anxiety Last Admin: 10/09/16 16:33 Dose: 1 mg Losartan Potassium (Cozaar) 50 mg PO DAILY [facility] Last Admin: 10/11/16 11:33 Dose: 50 mg Pantoprazole Sodium (Protonix Ec Tab) 40 mg PO DAILY [facility] Last Admin: 10/11/16 11:33 Dose: 40 mg - Labs Labs: 10/11/16 08:03 10/11/16 08:03
--- NOTE | 2016-10-11 21:50 | CP.PCM.PN ---
Subjective - Date & Time of Evaluation Date of Evaluation: 10/11/16 Time of Evaluation: 03:00 - Subjective Subjective: dictated Objective - Vital Signs/Intake and Output Vital Signs (last 24 hours): Temp Pulse Resp BP Pulse Ox 98.6 F 91 H 20 166/71 H 97 10/11/16 16:00 10/11/16 16:31 10/11/16 16:00 10/11/16 16:00 10/11/16 16:00 Intake and Output: 10/11/16 10/12/16 18:59 06:59 Intake Total 1040 Balance 1040 - Medications Medications: Current Medications Acetylcysteine (Acetylcysteine 20%) 3 ml PO Q12 [facility] Last Admin: 10/11/16 21:26 Dose: 3 ml Aspirin (Aspirin Chewable) 81 mg PO DAILY [facility] Last Admin: 10/11/16 11:33 Dose: 81 mg Clopidogrel Bisulfate (Plavix) 75 mg PO DAILY [facility] Last Admin: 10/11/16 11:33 Dose: 75 mg Piperacillin Sod/Tazobactam Sod (Zosyn 2.25 Gm Iv Premix) 50 mls @ 100 mls/hr IVPB Q8H [facility] Last Admin: 10/11/16 14:11 Dose: 100 mls/hr Daptomycin 600 mg/ Sodium (Chloride) 100 mls @ 100 mls/hr IV Q24H [facility] Stop: 10/12/16 18:01 Last Admin: 10/11/16 17:59 Dose: 100 mls/hr Sodium Chloride (Sodium Chloride 0.45%) 1,000 mls @ 100 mls/hr IV .Q10H [facility] Last Admin: 10/11/16 14:09 Dose: 100 mls/hr Insulin Glargine (Lantus) 10 unit SC DAILY [facility] Last Admin: 10/11/16 11:34 Dose: 10 u Insulin Human Regular (Novolin R) 0 unit SC ACHS [facility] PRN Reason: Protocol Last Admin: 10/11/16 21:26 Dose: Not Given Lorazepam (Ativan) 1 mg IVP Q6H PRN PRN Reason: Anxiety Last Admin: 10/09/16 16:33 Dose: 1 mg Losartan Potassium (Cozaar) 50 mg PO DAILY [facility] Last Admin: 10/11/16 11:33 Dose: 50 mg Pantoprazole Sodium (Protonix Ec Tab) 40 mg PO DAILY [facility] Last Admin: 10/11/16 11:33 Dose: 40 mg - Labs Labs: 10/11/16 08:03 10/11/16 08:03
--- NOTE | 2016-10-11 22:32 | PN ---
DATE: 10/11/2016 SUBJECTIVE: The patient is afebrile. The nurse was telling me that they tried 4 times to do the MRI , but was not able to do. The patient, even after sedation, was not able to lie quietly for the MRI. His creatinine is better and he may go for angiogram tomorrow. His foot remains with the dressing. PHYSICAL EXAMINATION: VITAL SIGNS: T-max is 98.6, pulse 83, blood pressure 166/71, respirations are 20. I saw him around 3 o'clock today. HEENT: Head is atraumatic. NECK: Supple. LUNGS: Clear. He offered no new complaints. Decreased breath sounds on both bases. HEART: S1, S2 regular. ABDOMEN: Soft, nontender, no guarding, no rigidity present. EXTREMITIES: Foot remains with the dressing at this time. Left foot has fourth toe which is dark in color and has a dressing. LABORATORY DATA: White count is 11.4 today, hemoglobin 9.8, hematocrit 32.2, platelet count is 201. Creatinine is 1.3. At this time, he is on daptomycin and ____. Will continue both, they are renally dosed Zosyn, but Cu bicin they are giving full dose and we are waiting for an angiogram. MRI is not done. The results o f abdominal angiography is pending at this time. He came in with diabetic foot ulcer and has gangrene seems like and has peripheral vascular disease, diabetes. He is on antibiotics at this time. There is no culture to go by, so we are giving daptomy ham and Zosyn at this time. Jarrod Hauser MD cc: [id number] TT: 10/11/2016 22:31:46 Confirmation # [id number] Dictation # [id number] sacha
--- NOTE | 2016-10-11 23:36 | PN ---
DATE: 10/11/2016 The patient is located in room 358, bed A. REQUESTED BY: Dr. Brian Kat. REASON FOR RENAL CONSULTATION: Increased BUN and creatinine, status post angiogram. HISTORY OF PRESENT ILLNESS: The patient is an 81-year-old elderly male with a history of hypertension, type 2 diabetes, coronary artery disease, arthritis, hyperlipidemia, thyroidism, who was admitted with discoloration of the left fourth toe and pain and swelling of the legs. The patient was found to have elevated serum creatinine about 1.7 on admission. On admission, his BUN and creatinine were 61/1.9. The patient underwent a CT of the abdomen angiogram yesterday. The patient is not in acute distress. Denies any chest pain, palpitations. No fever. No cough. PHYSICAL EXAMINATION: VITAL SIGNS: As follows: Blood pressure 166/71, pulse 83, respirations 20, temperature 98.6, saturation 97%, height 5 feet 10 inches, and weight is 184 pounds. GENERAL: The patient is an 81-year-old elderly male, moderately built, moderately nourished, not in acute distress. HEENT: Pupils normal, reactive to light and accommodation. Conjunctivae pink. Sclerae anicteric. Tongue is moist. NECK: Trachea is midline. LUNGS: Symmetric on both sides. Bilateral breath sounds present. Clear on auscultation. CARDIOVASCULAR: [place] in the fifth intercostal space midclavicular line. S1 and S2 audible. No murmur or gallop. ABDOMEN: Normal in appearance, soft, tympanitic. No guarding. No rigidity. No hepatosplenomegaly. CENTRAL NERVOUS SYSTEM: The patient is alert, awake, oriented x 2. Sensory and motor system is grossly within normal limits. Cranial nerves II-XII grossly intact. EXTREMITIES: No cyanosis. No clubbing. The patient has 1+ edema in both lower extremities and also discoloration of the left fourth toe. The patient also has a dressing to the left foot. CURRENT MEDICATIONS: Include as follows: Aspirin 81 mg daily and Ativan 1 mg IV daily, Cozaar 50 mg p.o. daily, daptomycin 600 mg q. 24 hours, Lantus 10 units, Plavix 75 mg, Protonix 40 mg, IV fluids half normal saline at 100 mL per hour, Zosyn 2.25 grams q. 8 hours. LABORATORY DATA: Include as follows: As of 10/11/2016: WBC 11.4, hemoglobin 9.8, hematocrit is 32.2, platelets 201. Sodium 134, potassium is 4, chloride 102, CO2 21, BUN 20, creatinine 1.3, glucose 140, calcium 8.2, phosphorus 2.5, magnesium 1.9. Total bilirubin 0.7, AST 33, ALT 39, alkaline phosphatase 121, total protein 7.0, albumin is 3.4. IN SUMMARY: The patient is an 81-year-old elderly male with a history of hypertension, diabetes, arthritis, coronary artery disease with CHF, hyperlipidemia, hypothyroidism, with a discoloration of the left fourth toe, status post angiogram. 1. Acute renal failure, chronic kidney disease. The renal function is improving with gentle IV hydration. Serum creatinine is stable after CT angiogram. 2. Hypertension. Blood pressure is stable. 3. Left fourth toe discoloration, rule out gangrene. Continue antibiotics as per ID recommendation. We will follow with you. Thank you for allowing me to participate in your patient's care. Claudia Hernandez MD cc: [id number] TT: 10/11/2016 23:36:14 Confirmation # [id number] Dictation # [id number] tn MTDD
[2016-10-12] MEDS: Sodium Chloride 0.45% 1,000 ML IV SCH ×2 (03:00→12:18)
[2016-10-12] MEDS: Piperacill/Tazo 2.25gm in Dex 50 ML IVPB SCH ×3 (06:04→22:00)
[2016-10-12 07:05] LABS: BASO # 0.1 K/uL (0.0-0.2); BASO % 0.6 % (0.0-2.0); EOS # 0.3 K/uL (0.0-0.7); EOS % 3.1 % (0.0-4.0); HEMATOCRIT 30.5 % (35.0-51.0); LYMPH # 1.5 K/uL (1.0-4.3); LYMPH % 15.2 % (20.0-40.0); MEAN CELL VOLUME 69.6 fL (80.0-94.0); MEAN CORPUSCULAR HGB CONC 31.6 g/dL (33.0-37.0); MEAN PLATELET VOLUME 8.3 fL (7.2-11.7); MONO # 1.4 K/uL (0.0-0.8); MONO % 13.5 % (0.0-10.0); RED CELL DISTRIBUTION WIDTH 18.6 % (11.5-14.5); WHITE BLOOD COUNT 10.1 K/uL (4.8-10.8)
--- NOTE | 2016-10-12 07:21 | CP.PCM.PN ---
<Cheo Vidalesy - Last Filed: 10/12/16 14:56> Subjective - Date & Time of Evaluation Date of Evaluation: 10/12/16 Time of Evaluation: 07:18 - Subjective Subjective: PGY-1 Medicine Progress Note for Dr. Garcia Patient seen and examined at bedside. Patient NPO overnight. Patient resting in bed and still complaining of foot pain. Patient has no other acute complaint at this time. He is tolerating diet and having BM. Patient is going for Angiogram today with Dr. Brown at 11 am. Denied fever/chills, cp, palpitations, sob, abd pain, n/v/d. Objective - Vital Signs/Intake and Output Vital Signs (last 24 hours): Temp Pulse Resp BP Pulse Ox 97.7 F 101 H 20 158/67 H 99 10/11/16 23:43 10/11/16 23:43 10/11/16 23:43 10/11/16 23:43 10/11/16 23:43 Intake and Output: 10/12/16 10/12/16 06:59 18:59 Output Total 250 Balance -250 - Medications Medications: Current Medications Acetylcysteine (Acetylcysteine 20%) 3 ml PO Q12 [facility] Last Admin: 10/11/16 21:26 Dose: 3 ml Aspirin (Aspirin Chewable) 81 mg PO DAILY [facility] Last Admin: 10/11/16 11:33 Dose: 81 mg Clopidogrel Bisulfate (Plavix) 75 mg PO DAILY [facility] Last Admin: 10/11/16 11:33 Dose: 75 mg Piperacillin Sod/Tazobactam Sod (Zosyn 2.25 Gm Iv Premix) 50 mls @ 100 mls/hr IVPB Q8H [facility] Last Admin: 10/12/16 06:04 Dose: 100 mls/hr Daptomycin 600 mg/ Sodium (Chloride) 100 mls @ 100 mls/hr IV Q24H [facility] Stop: 10/12/16 18:01 Last Admin: 10/11/16 17:59 Dose: 100 mls/hr Sodium Chloride (Sodium Chloride 0.45%) 1,000 mls @ 100 mls/hr IV .Q10H [facility] Last Admin: 10/12/16 03:00 Dose: 100 mls/hr Insulin Glargine (Lantus) 10 unit SC DAILY [facility] Last Admin: 10/11/16 11:34 Dose: 10 u Insulin Human Regular (Novolin R) 0 unit SC ACHS [facility] PRN Reason: Protocol Last Admin: 10/11/16 21:26 Dose: Not Given Lorazepam (Ativan) 1 mg IVP Q6H PRN PRN Reason: Anxiety Last Admin: 10/09/16 16:33 Dose: 1 mg Losartan Potassium (Cozaar) 50 mg PO DAILY [facility] Last Admin: 10/11/16 11:33 Dose: 50 mg Pantoprazole Sodium (Protonix Ec Tab) 40 mg PO DAILY [facility] Last Admin: 10/11/16 11:33 Dose: 40 mg - Labs Labs: 10/12/16 06:52 10/11/16 08:03 - Head Exam Head Exam: ATRAUMATIC, NORMOCEPHALIC - Eye Exam Eye Exam: EOMI, Normal appearance Pupil Exam: PERRL - ENT Exam ENT Exam: Mucous Membranes Moist - Neck Exam Neck Exam: Normal Inspection - Respiratory Exam Respiratory Exam: Clear to Ausculation Bilateral, NORMAL BREATHING PATTERN - Cardiovascular Exam Cardiovascular Exam: RRR, +S1, +S2 - GI/Abdominal Exam GI & Abdominal Exam: Soft, Normal Bowel Sounds. absent: Tenderness - Extremities Exam Additional comments: left TTP feet bilateral cold to touch faint pulses bilaterally in LEs left 4th toe black without drainage - Back Exam Back Exam: absent: CVA tenderness (L), CVA tenderness (R) - Neurological Exam Neurological Exam: Alert, Awake, CN II-XII Intact, Oriented x3 - Psychiatric Exam Psychiatric exam: Normal Affect, Normal Mood - Skin Skin Exam: Dry, Intact Assessment and Plan - Assessment and Plan (Free Text) Plan: 1. Gangrenous Toe Vascular Consult, Dr. Brown, help appreciated Daptomycin 600 mg IVPB Q24H Zosyn 2.25gm IVPB Q8H (started 10/07/16) NS @ 70 cc/hr Nursing communication to gently wash left foot with saline daily Left foot x ray results: mild hallux deformity with degenerative changes. Diffuse osteopenia. Productive changes of 3rd and 4th metatarsal, dorsal aspect of midfoot, and level medial mallelolus (see full report). F/U Left foot MRI ID consult - Dr. Hauser - help appreciated Podiatry consult - Dr. Gaytan - help appreciated Abdominal angiography Angiogram this morning at 11 am, Patient NPO 2. Leukocytosis Likely secondary to gangrene Monitor CBC 3. PAD Arterial doppler: 1.) Occluded left posterior tibial artery. No flow detected throughout the vessel. 2.) Continuous monophasic waveforms, beginning at left superficial femoral artery level. Calcific plaques notted throughout bilateral lower extremities. Slightly increased velocities due to vessel narrowing. No evidence of arterial occlusions of bilateral extremity arteries above the knee. (see full report) Vascular Consult, Dr. Brown, help appreciated Adominal angiography Angiogram this morning at 11 am, Patient NPO 4. Acute on chronic kidney injury BUN/Cr: NS @ 70 cc/hr [employer] lasix Neprhology Consult, Dr. Hernandez, help appreciated hydration and mucomyst to try to prep patient for angiogram Monitor BUN/Cr 5. History of DM Accuchecks ACHS RISS HA1C 10.0 Hold home metformin 850mg PO 6. History of CAD ASA 81mg PO daily Plavix 75mg PO daily 7. History of CHF Hold home lasix 20 mg PO daily secondary to acute on chronic kidney injury CXR 10/07/16 - diffuse increased interstitial lung markings which may represent mild edema and/or infiltrate. Patchy increased markings at the left lung base. Small nodular density at the medial left upper lung zone may represent vessel ( please see full report) 8. History of Hypothyroidism Patient not on any home medications for this TSH 4.47 Free T4 1.25 9. History of HTN Continue home Losartan 50 mg PO daily 10. Prophylactic Measures Heparin 5000U SC Q8H SCDs contraindicated secondary to PVD and gangrene Protonix 40mg PO daily <Tahir Garcia M - Last Filed: 10/12/16 15:46> Objective - Vital Signs/Intake and Output Vital Signs (last 24 hours): Temp Pulse Resp BP Pulse Ox 98.5 F 84 20 114/60 97 10/12/16 08:00 10/12/16 14:57 10/12/16 08:00 10/12/16 08:00 10/12/16 08:00 Intake and Output: 10/12/16 10/12/16 06:59 18:59 Intake Total 800 Output Total 250 Balance -250 800 - Medications Medications: Current Medications Acetylcysteine (Acetylcysteine 20%) 3 ml PO Q12 [facility] Last Admin: 10/12/16 12:17 Dose: Not Given Aspirin (Aspirin Chewable) 81 mg PO DAILY [facility] Last Admin: 10/12/16 12:17 Dose: Not Given Clopidogrel Bisulfate (Plavix) 75 mg PO DAILY [facility] Last Admin: 10/12/16 12:18 Dose: Not Given Piperacillin Sod/Tazobactam Sod (Zosyn 2.25 Gm Iv Premix) 50 mls @ 100 mls/hr IVPB Q8H [facility] Last Admin: 10/12/16 15:02 Dose: Not Given Daptomycin 600 mg/ Sodium (Chloride) 100 mls @ 100 mls/hr IV Q24H [facility] Stop: 10/12/16 18:01 Last Admin: 10/11/16 17:59 Dose: 100 mls/hr Dextrose/Sodium Chloride (Dextrose 5%/0.45% Ns 1000 Ml) 1,000 mls @ 75 mls/hr IV .[id number] [facility] Last Admin: 10/12/16 12:43 Dose: Not Given Insulin Glargine (Lantus) 10 unit SC DAILY [facility] Last Admin: 10/12/16 12:16 Dose: Not Given Insulin Human Regular (Novolin R) 0 unit SC ACHS [facility] PRN Reason: Protocol Last Admin: 10/12/16 12:16 Dose: Not Given Lorazepam (Ativan) 1 mg IVP Q6H PRN PRN Reason: Anxiety Last Admin: 10/09/16 16:33 Dose: 1 mg Losartan Potassium (Cozaar) 50 mg PO DAILY [facility] Last Admin: 10/12/16 12:15 Dose: Not Given Oxycodone/Acetaminophen (Percocet 5/325 Mg Tab) 1 tab PO Q4H PRN PRN Reason: Pain, moderate (4-7) Stop: 10/15/16 07:29 Last Admin: 10/12/16 07:57 Dose: 1 tab Pantoprazole Sodium (Protonix Ec Tab) 40 mg PO DAILY [facility] Last Admin: 10/12/16 12:18 Dose: Not Given - Labs Labs: 10/12/16 06:52 10/12/16 06:52 PT 13.3 SECONDS (9.7-12.2) H 10/12/16 08:55 INR 1.2 10/12/16 08:55 APTT 33 SECONDS (21-34) 10/12/16 08:55 Attending/Attestation - Attestation I have personally seen and examined this patient.: Yes I have fully participated in the care of the patient.: Yes I have reviewed all pertinent clinical information, including history, physical exam and plan: Yes Notes (Text): 10/12/16 15:45 Patient was seen and examined at bedside today Patient's family is present at bedside Plan is for therapeutic angiography today Continue IV antibiotics Podiatry and vascular surgery on board Discussed the plan of care with the resident and agree with the above history and physical and assessment/plan by the resident
[2016-10-12] MEDS: (Novolin R) Insulin Human Regular 100 units/ml vial SC SCH ×4 (07:40→21:44)
[2016-10-12 07:43] LABS: CHLORIDE 101 mmol/L (98-107); POTASSIUM 4.1 mmol/L (3.6-5.2); SODIUM 133 mmol/L (132-148)
[2016-10-12 07:45] LABS: BILIRUBIN,TOTAL 0.6 mg/dL (0.2-1.3); CARBON DIOXIDE 21 mmol/L (22-30); GFR AFRICAN-AMERICAN > 60
[2016-10-12 07:46] LABS: ALB/GLOB RATIO 0.9 (1.0-2.1); ALKALINE PHOSPHATASE 121 U/L (38-126); ALT/SGPT 46 U/L (21-72); AST/SGOT 38 U/L (17-59); BLOOD UREA NITROGEN 16 mg/dL (9-20); CALCIUM 8.1 mg/dl (8.6-10.4); GLUCOSE,RANDOM 138 mg/dL (75-110); MAGNESIUM 1.9 mg/dL (1.6-2.3); PHOSPHOROUS 2.6 mg/dL (2.5-4.5); TOTAL PROTEIN 6.9 g/dL (6.3-8.3)
[2016-10-12] MEDS: Pantoprazole 40 mg EC Tab PO SCH ×2 (07:56→12:18)
[2016-10-12] MEDS: Oxycodone/Acetaminophen 5/325 mg Tab PO PRN ×2 (07:57→22:58)
[2016-10-12] MEDS: Acetylcysteine 20% Inhal Soln (4ml) PO SCH ×4 (07:58→21:36)
--- NOTE | 2016-10-12 09:00 | CP.PCM.PN ---
Subjective - Date & Time of Evaluation Date of Evaluation: 10/12/16 Time of Evaluation: 08:55 - Subjective Subjective: 81 y/o male seen and evaluated with left 4th digit gangrene with discoloration of 3rd digit. Patient is seen at bedside with Dr. Gaytan. Patient is resting at the time of exam but awakes and is alert to our presence. Patient understands that he is going for procedure to evaluated blood flow today and that most likely he will be needing amputations of the left foot determined by amount of blood flow available. No acute overnigth events. Objective - Vital Signs/Intake and Output Vital Signs (last 24 hours): Temp Pulse Resp BP Pulse Ox 97.7 F 101 H 20 158/67 H 99 10/11/16 23:43 10/11/16 23:43 10/11/16 23:43 10/11/16 23:43 10/11/16 23:43 Intake and Output: 10/12/16 10/12/16 06:59 18:59 Intake Total 800 Output Total 250 Balance -250 800 - Medications Medications: Current Medications Acetylcysteine (Acetylcysteine 20%) 3 ml PO Q12 [facility] Last Admin: 10/12/16 08:02 Dose: 3 ml Aspirin (Aspirin Chewable) 81 mg PO DAILY [facility] Last Admin: 10/12/16 07:56 Dose: 81 mg Clopidogrel Bisulfate (Plavix) 75 mg PO DAILY [facility] Last Admin: 10/12/16 07:56 Dose: 75 mg Piperacillin Sod/Tazobactam Sod (Zosyn 2.25 Gm Iv Premix) 50 mls @ 100 mls/hr IVPB Q8H [facility] Last Admin: 10/12/16 06:04 Dose: 100 mls/hr Daptomycin 600 mg/ Sodium (Chloride) 100 mls @ 100 mls/hr IV Q24H [facility] Stop: 10/12/16 18:01 Last Admin: 10/11/16 17:59 Dose: 100 mls/hr Sodium Chloride (Sodium Chloride 0.45%) 1,000 mls @ 100 mls/hr IV .Q10H [facility] Last Admin: 10/12/16 03:00 Dose: 100 mls/hr Insulin Glargine (Lantus) 10 unit SC DAILY [facility] Last Admin: 10/11/16 11:34 Dose: 10 u Insulin Human Regular (Novolin R) 0 unit SC ACHS [facility] PRN Reason: Protocol Last Admin: 10/12/16 07:40 Dose: Not Given Lorazepam (Ativan) 1 mg IVP Q6H PRN PRN Reason: Anxiety Last Admin: 10/09/16 16:33 Dose: 1 mg Losartan Potassium (Cozaar) 50 mg PO DAILY [facility] Last Admin: 10/12/16 07:56 Dose: 50 mg Oxycodone/Acetaminophen (Percocet 5/325 Mg Tab) 1 tab PO Q4H PRN PRN Reason: Pain, moderate (4-7) Stop: 10/15/16 07:29 Last Admin: 10/12/16 07:57 Dose: 1 tab Pantoprazole Sodium (Protonix Ec Tab) 40 mg PO DAILY [facility] Last Admin: 10/12/16 07:56 Dose: 40 mg - Labs Labs: 10/12/16 06:52 10/12/16 06:52 - Constitutional Appears: Well, Non-toxic - Neurological Exam Neurological Exam: Alert, Awake, Oriented x3 - Psychiatric Exam Psychiatric exam: Normal Affect, Normal Mood - Additional Findings Additional findings: Vasc: DP non palp due to edema; b/l, PT non palp, Temp gradient is increased with feetcool to touch, CAp fill time < 5 s Derm: Grossly there is a gangrenous 4th digit noticeable with mild erythema surrounding the digit , diffuse edema is noted, there is maceration in the 3/4 interspace, wound does not probe to bone at this time, surroudning mottling of skin is noted ; there is noted to be newly formed darkening of skin overlying the 3rd digit as well as along the 3/4 MPJ, Neuro: Grossly diminished Ortho: limited exam. Assessment and Plan - Assessment and Plan (Free Text) Assessment: 81 y/o male with left 4th gangrenous digit with worsening 3rd digit and forefoot. Plan: Patient evaluated and chart reviewed Seen with Dr. Gaytan at bedside. Patient is for Angio today for blood flow eval. Depending on amount of blood flow available or able to be revasc to the foot will determine level of amputation. At this time allowing for full demarcation of the gangrenous area. Tomorrow will re eval foot and angio results and probable OR next week for either 3/4 digit amputation or possible TMA depending on flow. Labs/vital reviewed Will continue to follow while on floor.
[2016-10-12 09:07] LABS: INR 1.2
[2016-10-12] MEDS: (Lantus) Insulin Glargine, Recombinant SC SCH (12:16)
[2016-10-12] MEDS: Dextrose 5%/0.45% NS 1,000 ML IV SCH (12:43)
[2016-10-12] MEDS ORDERED: Midazolam 2 MG/2 ML VIAL ONE (13:07)
[2016-10-12] MEDS ORDERED: Propofol 10 mg/ml Inj (20 ML) ONE ×2 (13:07→15:24)
[2016-10-12] MEDS ORDERED: Iodixanol 320 MG/ML 100 ML BOTTLE IV ONE (13:32)
--- NOTE | 2016-10-12 15:52 | PCM.SURG1 ---
Surgeon's Initial Post Op Note - Surgeon's Notes Surgeon: santos Centrifugal Drier Operator: 0 Anesthesia Administered By: vijay Pre-Operative Diagnosis: gangrene left foot Operative Findings: proximal sfa stenosis 40%. 100% focal occlusion in mid and distal sfa. perclose right groin Post-Operative Diagnosis: same Operation Performed: aortofemoral angiogram via right groin. selective angiogram left femoral artery. pathway atherctomy. dcb to proximal sfa. zilver 6x120 and 60 to sfa. perclose to right femoral artery Specimen/Specimens Removed: 0 Estimated Blood Loss: EBL {In ML}: 30 Blood Products Given: N/A Drains Used: No Drains Post-Op Condition: Good Date of Surgery/Procedure: 10/12/16 Time of Surgery/Procedure: 15:54
[2016-10-12] MEDS: DAPTOmycin 600 MG in Sodium Chloride 0.9% 100 ML IV SCH (17:03)
[2016-10-13] MEDS: Dextrose 5%/0.45% NS 1,000 ML IV SCH ×2 (06:02→06:03)
[2016-10-13] MEDS: Piperacill/Tazo 2.25gm in Dex 50 ML IVPB SCH ×3 (06:03→22:24)
[2016-10-13 07:20] LABS: CHLORIDE 100 mmol/L (98-107)
[2016-10-13 07:21] LABS: BASO # 0.1 K/uL (0.0-0.2); BASO % 0.5 % (0.0-2.0); EOS # 0.3 K/uL (0.0-0.7); EOS % 2.5 % (0.0-4.0); HEMATOCRIT 30.2 % (35.0-51.0); LYMPH # 1.4 K/uL (1.0-4.3); LYMPH % 13.8 % (20.0-40.0); MEAN CELL VOLUME 70.1 fL (80.0-94.0); MEAN CORPUSCULAR HGB CONC 31.4 g/dL (33.0-37.0); MEAN PLATELET VOLUME 8.3 fL (7.2-11.7); MONO # 1.4 K/uL (0.0-0.8); MONO % 13.7 % (0.0-10.0); RED CELL DISTRIBUTION WIDTH 18.9 % (11.5-14.5); SODIUM 130 mmol/L (132-148); WHITE BLOOD COUNT 10.4 K/uL (4.8-10.8)
[2016-10-13 07:23] LABS: ALB/GLOB RATIO 0.9 (1.0-2.1); ALKALINE PHOSPHATASE 114 U/L (38-126); AST/SGOT 31 U/L (17-59); BILIRUBIN,TOTAL 0.8 mg/dL (0.2-1.3); CARBON DIOXIDE 23 mmol/L (22-30); GFR AFRICAN-AMERICAN > 60; TOTAL PROTEIN 6.5 g/dL (6.3-8.3)
[2016-10-13 07:24] LABS: ALT/SGPT 34 U/L (21-72); BLOOD UREA NITROGEN 13 mg/dL (9-20); CALCIUM 7.7 mg/dl (8.6-10.4); GLUCOSE,RANDOM 201 mg/dL (75-110); MAGNESIUM 1.8 mg/dL (1.6-2.3); PHOSPHOROUS 2.9 mg/dL (2.5-4.5)
--- NOTE | 2016-10-13 08:03 | CP.PCM.PN ---
Subjective - Date & Time of Evaluation Date of Evaluation: 10/13/16 Time of Evaluation: 07:54 - Subjective Subjective: Surgery: Dr. Brown Pt seen and examined. No acute overnight events. Denies any complaints. Objective - Vital Signs/Intake and Output Vital Signs (last 24 hours): Temp Pulse Resp BP Pulse Ox 98.9 F 92 H 20 183/62 H 100 10/13/16 07:28 10/13/16 07:28 10/13/16 07:28 10/13/16 07:28 10/13/16 07:28 Intake and Output: 10/13/16 10/13/16 06:59 18:59 Intake Total 1850 Balance 1850 - Medications Medications: Current Medications Acetylcysteine (Acetylcysteine 20%) 3 ml PO Q12 [facility] Last Admin: 10/12/16 21:36 Dose: 3 ml Aspirin (Aspirin Chewable) 81 mg PO DAILY [facility] Last Admin: 10/12/16 12:17 Dose: Not Given Clopidogrel Bisulfate (Plavix) 75 mg PO DAILY [facility] Last Admin: 10/12/16 12:18 Dose: Not Given Piperacillin Sod/Tazobactam Sod (Zosyn 2.25 Gm Iv Premix) 50 mls @ 100 mls/hr IVPB Q8H [facility] Last Admin: 10/13/16 06:03 Dose: 100 mls/hr Dextrose/Sodium Chloride (Dextrose 5%/0.45% Ns 1000 Ml) 1,000 mls @ 75 mls/hr IV .[id number] [facility] Last Admin: 10/13/16 06:03 Dose: 75 mls/hr Insulin Glargine (Lantus) 10 unit SC DAILY [facility] Last Admin: 10/12/16 12:16 Dose: Not Given Insulin Human Regular (Novolin R) 0 unit SC ACHS [facility] PRN Reason: Protocol Last Admin: 10/12/16 21:44 Dose: Not Given Lorazepam (Ativan) 1 mg IVP Q6H PRN PRN Reason: Anxiety Last Admin: 10/09/16 16:33 Dose: 1 mg Losartan Potassium (Cozaar) 50 mg PO DAILY [facility] Last Admin: 10/12/16 12:15 Dose: Not Given Oxycodone/Acetaminophen (Percocet 5/325 Mg Tab) 1 tab PO Q4H PRN PRN Reason: Pain, moderate (4-7) Stop: 10/15/16 07:29 Last Admin: 10/12/16 22:58 Dose: 1 tab Pantoprazole Sodium (Protonix Ec Tab) 40 mg PO DAILY [facility] Last Admin: 10/12/16 12:18 Dose: Not Given - Labs Labs: 10/13/16 06:59 10/13/16 06:59 PT 13.3 SECONDS (9.7-12.2) H 10/12/16 08:55 INR 1.2 10/12/16 08:55 APTT 33 SECONDS (21-34) 10/12/16 08:55 - Constitutional Appears: Well, No Acute Distress - ENT Exam ENT Exam: Mucous Membranes Moist - Respiratory Exam Respiratory Exam: NORMAL BREATHING PATTERN - Cardiovascular Exam Cardiovascular Exam: RRR - GI/Abdominal Exam GI & Abdominal Exam: Soft. absent: Tenderness - Extremities Exam Additional comments: R groin puncture site s/p angio, C/D/I. - Neurological Exam Neurological Exam: Awake - Skin Skin Exam: Dry, Warm Assessment and Plan - Assessment and Plan (Free Text) Assessment: 81M with Left foot/toe gangrene s/p angio; POD#1 Plan: - wound care as per podiatry - no further surgical intervention at this time - d/w Dr. Stephanie Lee, PGY-2 Surgery
[2016-10-13] MEDS: (Novolin R) Insulin Human Regular 100 units/ml vial SC SCH ×4 (08:40→22:10)
--- NOTE | 2016-10-13 09:22 | CP.PCM.PN ---
<Tyrone Gan - Last Filed: 10/13/16 11:29> Subjective - Date & Time of Evaluation Date of Evaluation: 10/13/16 Time of Evaluation: 09:30 - Subjective Subjective: Medicine Note- Hospitalist Service Patient was seen and examined at bedside. Patient reports he still has pain in his left leg. Patient appeared comfortable, though somnolent. No events overnight per nursing. Objective - Vital Signs/Intake and Output Vital Signs (last 24 hours): Temp Pulse Resp BP Pulse Ox 98.9 F 92 H 20 183/62 H 100 10/13/16 07:28 10/13/16 07:28 10/13/16 07:28 10/13/16 07:28 10/13/16 07:28 Intake and Output: 10/13/16 10/13/16 06:59 18:59 Intake Total 1850 Balance 1850 - Medications Medications: Current Medications Acetylcysteine (Acetylcysteine 20%) 3 ml PO Q12 [facility] Last Admin: 10/12/16 21:36 Dose: 3 ml Aspirin (Aspirin Chewable) 81 mg PO DAILY [facility] Last Admin: 10/12/16 12:17 Dose: Not Given Clopidogrel Bisulfate (Plavix) 75 mg PO DAILY [facility] Last Admin: 10/12/16 12:18 Dose: Not Given Piperacillin Sod/Tazobactam Sod (Zosyn 2.25 Gm Iv Premix) 50 mls @ 100 mls/hr IVPB Q8H [facility] Last Admin: 10/13/16 06:03 Dose: 100 mls/hr Dextrose/Sodium Chloride (Dextrose 5%/0.45% Ns 1000 Ml) 1,000 mls @ 75 mls/hr IV .[id number] [facility] Last Admin: 10/13/16 06:03 Dose: 75 mls/hr Insulin Glargine (Lantus) 10 unit SC DAILY [facility] Last Admin: 10/12/16 12:16 Dose: Not Given Insulin Human Regular (Novolin R) 0 unit SC ACHS [facility] PRN Reason: Protocol Last Admin: 10/13/16 08:40 Dose: 3 unit Lorazepam (Ativan) 1 mg IVP Q6H PRN PRN Reason: Anxiety Last Admin: 10/09/16 16:33 Dose: 1 mg Losartan Potassium (Cozaar) 50 mg PO DAILY [facility] Last Admin: 10/12/16 12:15 Dose: Not Given Oxycodone/Acetaminophen (Percocet 5/325 Mg Tab) 1 tab PO Q4H PRN PRN Reason: Pain, moderate (4-7) Stop: 10/15/16 07:29 Last Admin: 10/12/16 22:58 Dose: 1 tab Pantoprazole Sodium (Protonix Ec Tab) 40 mg PO DAILY [facility] Last Admin: 10/12/16 12:18 Dose: Not Given - Labs Labs: 10/13/16 06:59 10/13/16 06:59 PT 13.3 SECONDS (9.7-12.2) H 10/12/16 08:55 INR 1.2 10/12/16 08:55 APTT 33 SECONDS (21-34) 10/12/16 08:55 - Constitutional Appears: Non-toxic, No Acute Distress - ENT Exam ENT Exam: Mucous Membranes Moist - Neck Exam Neck Exam: Normal Inspection - Cardiovascular Exam Cardiovascular Exam: REGULAR RHYTHM, +S1, +S2 - GI/Abdominal Exam GI & Abdominal Exam: Soft, Normal Bowel Sounds. absent: Tenderness, Diminished Bowel Sounds, Hernia, Hyperactive Bowel Sounds, Hypoactive Bowel Sounds - Extremities Exam Additional comments: left TTP feet bilateral cold to touch faint pulses bilaterally in LEs left 4th toe black without drainage - Neurological Exam Neurological Exam: Alert, Awake, Oriented x3 - Psychiatric Exam Psychiatric exam: Normal Affect, Normal Mood - Skin Skin Exam: Dry, Intact, Normal Color, Warm Assessment and Plan - Assessment and Plan (Free Text) Assessment: 1. Gangrenous Toe Vascular Consult, Dr. Brown, help appreciated Daptomycin 600 mg IVPB Q24H Zosyn 2.25gm IVPB Q8H (started 10/07/16) NS @ 70 cc/hr Nursing communication to gently wash left foot with saline daily Left foot x ray results: mild hallux deformity with degenerative changes. Diffuse osteopenia. Productive changes of 3rd and 4th metatarsal, dorsal aspect of midfoot, and level medial mallelolus (see full report). F/U Left foot MRI ID consult - Dr. Hauser - help appreciated Podiatry consult - Dr. Gaytan - help appreciated s/p angiogram day #1 Per post op note- aortofemoral angiogram via right groin, selective angiogram left femoral artery. pathway atherectomy. 2. Leukocytosis Likely secondary to gangrene Monitor CBC 3. PAD Arterial doppler: 1.) Occluded left posterior tibial artery. No flow detected throughout the vessel. 2.) Continuous monophasic waveforms, beginning at left superficial femoral artery level. Calcific plaques notted throughout bilateral lower extremities. Slightly increased velocities due to vessel narrowing. No evidence of arterial occlusions of bilateral extremity arteries above the knee. (see full report) Vascular Consult, Dr. Brown, help appreciated s/p angiogram day #1 Per post op note- aortofemoral angiogram via right groin, selective angiogram left femoral artery. pathway atherectomy. 4. Acute on chronic kidney injury BUN/Cr: NS @ 70 cc/hr [employer] lasix Neprhology Consult, Dr. Hernandez, help appreciated hydration and mucomyst to try to prep patient for angiogram Monitor BUN/Cr 5. History of DM Accuchecks ACHS RISS HA1C 10.0 Hold home metformin 850mg PO 6. History of CAD ASA 81mg PO daily Plavix 75mg PO daily 7. History of CHF Hold home lasix 20 mg PO daily secondary to acute on chronic kidney injury CXR 10/07/16 - diffuse increased interstitial lung markings which may represent mild edema and/or infiltrate. Patchy increased markings at the left lung base. Small nodular density at the medial left upper lung zone may represent vessel ( please see full report) 8. History of Hypothyroidism Patient not on any home medications for this TSH 4.47 Free T4 1.25 9. History of HTN Continue home Losartan 50 mg PO daily 10. Prophylactic Measures Heparin 5000U SC Q8H SCDs contraindicated secondary to PVD and gangrene Protonix 40mg PO daily <Tahir Garcia - Last Filed: 10/13/16 15:30> Objective - Vital Signs/Intake and Output Vital Signs (last 24 hours): Temp Pulse Resp BP Pulse Ox 98.9 F 92 H 20 183/62 H 100 10/13/16 07:28 10/13/16 07:28 10/13/16 07:28 10/13/16 07:28 10/13/16 07:28 Intake and Output: 10/13/16 10/13/16 06:59 18:59 Intake Total 1850 840 Output Total 200 Balance 1850 640 - Medications Medications: Current Medications Aspirin (Aspirin Chewable) 81 mg PO DAILY [facility] Last Admin: 10/13/16 10:07 Dose: 81 mg Clopidogrel Bisulfate (Plavix) 75 mg PO DAILY [facility] Last Admin: 10/13/16 10:06 Dose: 75 mg Daptomycin 600 mg/ Sodium (Chloride) 100 mls @ 100 mls/hr IV Q24H [facility] Stop: 10/18/16 18:01 Piperacillin Sod/Tazobactam Sod (Zosyn 2.25 Gm Iv Premix) 50 mls @ 200 mls/hr IVPB Q8H [facility] Last Admin: 10/13/16 14:30 Dose: 200 mls/hr Insulin Glargine (Lantus) 10 unit SC DAILY [facility] Last Admin: 10/13/16 10:08 Dose: Not Given Insulin Human Regular (Novolin R) 0 unit SC ACHS [facility] PRN Reason: Protocol Last Admin: 10/13/16 11:55 Dose: Not Given Lorazepam (Ativan) 1 mg IVP Q6H PRN PRN Reason: Anxiety Last Admin: 10/09/16 16:33 Dose: 1 mg Losartan Potassium (Cozaar) 50 mg PO DAILY [facility] Last Admin: 10/13/16 10:07 Dose: 50 mg Oxycodone/Acetaminophen (Percocet 5/325 Mg Tab) 1 tab PO Q4H PRN PRN Reason: Pain, moderate (4-7) Stop: 10/15/16 07:29 Last Admin: 10/13/16 10:07 Dose: 1 tab Pantoprazole Sodium (Protonix Ec Tab) 40 mg PO DAILY [facility] Last Admin: 10/13/16 10:07 Dose: 40 mg - Labs Labs: 10/13/16 06:59 10/13/16 06:59 PT 13.3 SECONDS (9.7-12.2) H 10/12/16 08:55 INR 1.2 10/12/16 08:55 APTT 33 SECONDS (21-34) 10/12/16 08:55 Attending/Attestation - Attestation I have personally seen and examined this patient.: Yes I have fully participated in the care of the patient.: Yes I have reviewed all pertinent clinical information, including history, physical exam and plan: Yes Notes (Text): 10/13/16 15:29 Patient was seen and examined at bedside Appears comfortable No complaint of pain at this time Status post angiogram and stent placement for the peripheral vascular disease Continue IV antibiotics Discussed the plan of care with the resident and agree with the above history and physical and assessment/plan with the resident.
[2016-10-13] MEDS: Acetylcysteine 20% Inhal Soln (4ml) PO SCH (10:06)
[2016-10-13] MEDS: Oxycodone/Acetaminophen 5/325 mg Tab PO PRN (10:07)
[2016-10-13] MEDS: Pantoprazole 40 mg EC Tab PO SCH (10:07)
[2016-10-13] MEDS: (Lantus) Insulin Glargine, Recombinant SC SCH (10:08)
--- NOTE | 2016-10-13 10:48 | CP.PCM.PN ---
Subjective - Date & Time of Evaluation Date of Evaluation: 10/13/16 Time of Evaluation: 10:48 - Subjective Subjective: wound ok doing well renal function ol to [facility] Objective - Vital Signs/Intake and Output Vital Signs (last 24 hours): Temp Pulse Resp BP Pulse Ox 98.9 F 92 H 20 183/62 H 100 10/13/16 07:28 10/13/16 07:28 10/13/16 07:28 10/13/16 07:28 10/13/16 07:28 Intake and Output: 10/13/16 10/13/16 06:59 18:59 Intake Total 1850 Balance 1850 - Medications Medications: Current Medications Acetylcysteine (Acetylcysteine 20%) 3 ml PO Q12 [facility] Last Admin: 10/13/16 10:06 Dose: 3 ml Aspirin (Aspirin Chewable) 81 mg PO DAILY [facility] Last Admin: 10/13/16 10:07 Dose: 81 mg Clopidogrel Bisulfate (Plavix) 75 mg PO DAILY [facility] Last Admin: 10/13/16 10:06 Dose: 75 mg Dextrose/Sodium Chloride (Dextrose 5%/0.45% Ns 1000 Ml) 1,000 mls @ 75 mls/hr IV .[id number] [facility] Last Admin: 10/13/16 06:03 Dose: 75 mls/hr Daptomycin 600 mg/ Sodium (Chloride) 100 mls @ 100 mls/hr IV Q24H [facility] Stop: 10/18/16 18:01 Piperacillin Sod/Tazobactam Sod (Zosyn 2.25 Gm Iv Premix) 50 mls @ 200 mls/hr IVPB Q8H [facility] Insulin Glargine (Lantus) 10 unit SC DAILY [facility] Last Admin: 10/13/16 10:08 Dose: Not Given Insulin Human Regular (Novolin R) 0 unit SC ACHS [facility] PRN Reason: Protocol Last Admin: 10/13/16 08:40 Dose: 3 unit Lorazepam (Ativan) 1 mg IVP Q6H PRN PRN Reason: Anxiety Last Admin: 10/09/16 16:33 Dose: 1 mg Losartan Potassium (Cozaar) 50 mg PO DAILY [facility] Last Admin: 10/13/16 10:07 Dose: 50 mg Oxycodone/Acetaminophen (Percocet 5/325 Mg Tab) 1 tab PO Q4H PRN PRN Reason: Pain, moderate (4-7) Stop: 10/15/16 07:29 Last Admin: 10/13/16 10:07 Dose: 1 tab Pantoprazole Sodium (Protonix Ec Tab) 40 mg PO DAILY [facility] Last Admin: 10/13/16 10:07 Dose: 40 mg - Labs Labs: 10/13/16 06:59 10/13/16 06:59 PT 13.3 SECONDS (9.7-12.2) H 10/12/16 08:55 INR 1.2 10/12/16 08:55 APTT 33 SECONDS (21-34) 10/12/16 08:55
--- NOTE | 2016-10-13 12:03 | CP.PCM.PN ---
Subjective - Date & Time of Evaluation Date of Evaluation: 10/13/16 Time of Evaluation: 11:59 - Subjective Subjective: 81 y/o male seen and evaluated with left 4th digit gangrene with discoloration of 3rd digit. Patient is seen at bedside, Patient is resting at the time of exam but awakes and is alert to our presence. Patient began kicking and screaming at the time of the dressing to be changed. Patient is aware he may need surgery on his left foot. Patient denies n/f/v/c/d/sob. Objective - Vital Signs/Intake and Output Vital Signs (last 24 hours): Temp Pulse Resp BP Pulse Ox 98.9 F 92 H 20 183/62 H 100 10/13/16 07:28 10/13/16 07:28 10/13/16 07:28 10/13/16 07:28 10/13/16 07:28 Intake and Output: 10/13/16 10/13/16 06:59 18:59 Intake Total 1850 Balance 1850 - Medications Medications: Current Medications Aspirin (Aspirin Chewable) 81 mg PO DAILY [facility] Last Admin: 10/13/16 10:07 Dose: 81 mg Clopidogrel Bisulfate (Plavix) 75 mg PO DAILY [facility] Last Admin: 10/13/16 10:06 Dose: 75 mg Daptomycin 600 mg/ Sodium (Chloride) 100 mls @ 100 mls/hr IV Q24H [facility] Stop: 10/18/16 18:01 Piperacillin Sod/Tazobactam Sod (Zosyn 2.25 Gm Iv Premix) 50 mls @ 200 mls/hr IVPB Q8H [facility] Insulin Glargine (Lantus) 10 unit SC DAILY [facility] Last Admin: 10/13/16 10:08 Dose: Not Given Insulin Human Regular (Novolin R) 0 unit SC ACHS [facility] PRN Reason: Protocol Last Admin: 10/13/16 11:55 Dose: Not Given Lorazepam (Ativan) 1 mg IVP Q6H PRN PRN Reason: Anxiety Last Admin: 10/09/16 16:33 Dose: 1 mg Losartan Potassium (Cozaar) 50 mg PO DAILY [facility] Last Admin: 10/13/16 10:07 Dose: 50 mg Oxycodone/Acetaminophen (Percocet 5/325 Mg Tab) 1 tab PO Q4H PRN PRN Reason: Pain, moderate (4-7) Stop: 10/15/16 07:29 Last Admin: 10/13/16 10:07 Dose: 1 tab Pantoprazole Sodium (Protonix Ec Tab) 40 mg PO DAILY [facility] Last Admin: 10/13/16 10:07 Dose: 40 mg - Labs Labs: 10/13/16 06:59 10/13/16 06:59 PT 13.3 SECONDS (9.7-12.2) H 10/12/16 08:55 INR 1.2 10/12/16 08:55 APTT 33 SECONDS (21-34) 10/12/16 08:55 - Constitutional Appears: Well, Non-toxic, No Acute Distress - Extremities Exam Additional comments: Vasc: DP non palp due to edema; b/l, PT non palp, Temp gradient is increased with feet cool to touch, CAp fill time < 5 s Derm: Grossly there is a gangrenous 4th digit noticeable with mild erythema surrounding the digit , diffuse edema is noted, there is maceration in the 3/4 interspace, wound does not probe to bone at this time, surroudning mottling of skin is noted ; there is noted to be newly formed darkening of skin overlying the 3rd digit as well as along the 3/4 MPJ, Neuro: Grossly diminished Ortho: limited exam. Assessment and Plan - Assessment and Plan (Free Text) Assessment: 81 y/o male with left 4th gangrenous digit with worsening 3rd digit and forefoot. Plan: Patient evaluated and chart reviewed discussed with Dr. Gaytan in detail Patient went for Angio yesterday for blood flow eval. Depending on amount of blood flow available or able to be revasc to the foot will determine level of amputation. At this time allowing for full demarcation of the gangrenous area. probable OR next week for either 3/4 digit amputation or possible TMA depending on flow. Labs/vital reviewed applied betadine DSD to left foot Will continue to follow while on floor.
--- NOTE | 2016-10-13 13:52 | CP.PCM.PN ---
Subjective - Date & Time of Evaluation Date of Evaluation: 10/13/16 Time of Evaluation: 01:40 - Subjective Subjective: dictated Objective - Vital Signs/Intake and Output Vital Signs (last 24 hours): Temp Pulse Resp BP Pulse Ox 98.9 F 92 H 20 183/62 H 100 10/13/16 07:28 10/13/16 07:28 10/13/16 07:28 10/13/16 07:28 10/13/16 07:28 Intake and Output: 10/13/16 10/13/16 06:59 18:59 Intake Total 1850 Balance 1850 - Medications Medications: Current Medications Aspirin (Aspirin Chewable) 81 mg PO DAILY [facility] Last Admin: 10/13/16 10:07 Dose: 81 mg Clopidogrel Bisulfate (Plavix) 75 mg PO DAILY [facility] Last Admin: 10/13/16 10:06 Dose: 75 mg Daptomycin 600 mg/ Sodium (Chloride) 100 mls @ 100 mls/hr IV Q24H [facility] Stop: 10/18/16 18:01 Piperacillin Sod/Tazobactam Sod (Zosyn 2.25 Gm Iv Premix) 50 mls @ 200 mls/hr IVPB Q8H [facility] Insulin Glargine (Lantus) 10 unit SC DAILY [facility] Last Admin: 10/13/16 10:08 Dose: Not Given Insulin Human Regular (Novolin R) 0 unit SC ACHS [facility] PRN Reason: Protocol Last Admin: 10/13/16 11:55 Dose: Not Given Lorazepam (Ativan) 1 mg IVP Q6H PRN PRN Reason: Anxiety Last Admin: 10/09/16 16:33 Dose: 1 mg Losartan Potassium (Cozaar) 50 mg PO DAILY [facility] Last Admin: 10/13/16 10:07 Dose: 50 mg Oxycodone/Acetaminophen (Percocet 5/325 Mg Tab) 1 tab PO Q4H PRN PRN Reason: Pain, moderate (4-7) Stop: 10/15/16 07:29 Last Admin: 10/13/16 10:07 Dose: 1 tab Pantoprazole Sodium (Protonix Ec Tab) 40 mg PO DAILY [facility] Last Admin: 10/13/16 10:07 Dose: 40 mg - Labs Labs: 10/13/16 06:59 10/13/16 06:59 PT 13.3 SECONDS (9.7-12.2) H 10/12/16 08:55 INR 1.2 10/12/16 08:55 APTT 33 SECONDS (21-34) 10/12/16 08:55
--- NOTE | 2016-10-13 16:52 | PN ---
DATE: 10/13/2016 The patient is drowsy, seems kind of confused to me. PHYSICAL EXAMINATION: VITAL SIGNS: Temperature is 99, pulse 72, blood pressure 124/59, respirations are 20. HEENT: Head is atraumatic, normocephalic. GENERAL: He is confused, however. NECK: Supple. LUNGS: Clear. No crackles or rales present. HEART: S1, S2 regular. ABDOMEN: Soft, nontender, no guarding, no rigidity present. EXTREMITIES: Left foot has a dressing. He did come in with the fourth digit which had gangrene and t here is also discoloration of the third digit. He is on Zosyn. LABORATORY DATA: Show white count is 10.4, hemoglobin 9.5, hematocrit 30.2, platelet count is 196. Sodium is 130, potassium 4, chloride 100, CO2 is 23, BUN is 11, creatinine is 1.3. Cultures have bee n all negative. He was seen by Dr. Brown today, doing well. Renal function is okay. To continue present treatmen t. He is on daptomycin as well as Zosyn. So I will continue the same medications and will follow. The patient does have peripheral vascular disease, has a nonhealing gangrene of the fourth toe and di abetes and will follow, but I am not sure about his confusion. Jarrod Hauser MD cc: [id number] TT: 10/13/2016 16:51:22 Confirmation # [id number] Dictation # [id number]
[2016-10-13] MEDS: DAPTOmycin 600 MG in Sodium Chloride 0.9% 100 ML IV SCH (18:31)
[2016-10-14] MEDS: Piperacill/Tazo 2.25gm in Dex 50 ML IVPB SCH ×3 (06:44→22:05)
[2016-10-14 07:59] LABS: BASO # 0.1 K/uL (0.0-0.2); BASO % 0.6 % (0.0-2.0); EOS # 0.3 K/uL (0.0-0.7); EOS % 3.1 % (0.0-4.0); HEMATOCRIT 29.8 % (35.0-51.0); LYMPH # 1.6 K/uL (1.0-4.3); LYMPH % 14.2 % (20.0-40.0); MEAN CELL VOLUME 70.2 fL (80.0-94.0); MEAN CORPUSCULAR HEMOGLOBIN 21.9 pg (27.0-31.0); MEAN CORPUSCULAR HGB CONC 31.2 g/dL (33.0-37.0); MEAN PLATELET VOLUME 8.3 fL (7.2-11.7); MONO # 1.7 K/uL (0.0-0.8); MONO % 15.2 % (0.0-10.0); RED CELL DISTRIBUTION WIDTH 18.2 % (11.5-14.5)
[2016-10-14 08:09] LABS: POTASSIUM 4.2 mmol/L (3.6-5.2)
[2016-10-14 08:11] LABS: ALB/GLOB RATIO 0.9 (1.0-2.1); BILIRUBIN,TOTAL 0.6 mg/dL (0.2-1.3); TOTAL PROTEIN 6.6 g/dL (6.3-8.3)
[2016-10-14 08:12] LABS: MAGNESIUM 1.9 mg/dL (1.6-2.3); PHOSPHOROUS 2.5 mg/dL (2.5-4.5)
[2016-10-14] MEDS: Pantoprazole 40 mg EC Tab PO SCH (09:30)
[2016-10-14] MEDS: (Novolin R) Insulin Human Regular 100 units/ml vial SC SCH ×4 (09:32→22:07)
[2016-10-14] MEDS: (Lantus) Insulin Glargine, Recombinant SC SCH (09:32)
[2016-10-14] MEDS: Oxycodone/Acetaminophen 5/325 mg Tab PO PRN (12:40)
--- NOTE | 2016-10-14 13:10 | CP.PCM.PN ---
Subjective - Date & Time of Evaluation Date of Evaluation: 10/14/16 Time of Evaluation: 13:08 - Subjective Subjective: 81 y/o male seen and evaluated with left 4th digit gangrene with discoloration of 3rd digit. Patient is seen at bedside, Patient is resting at the time of exam but awakes and is alert to our presence. Patient began kicking and screaming at the time of the dressing to be changed. Patient is aware he may need surgery on his left foot. Patient denies n/f/v/c/d/sob. Objective - Vital Signs/Intake and Output Vital Signs (last 24 hours): Temp Pulse Resp BP Pulse Ox 98.9 F 87 20 170/70 H 97 10/14/16 08:00 10/14/16 08:00 10/14/16 08:00 10/14/16 08:00 10/14/16 08:00 Intake and Output: 10/14/16 10/14/16 06:59 18:59 Intake Total 850 170 Output Total 400 Balance 450 170 - Medications Medications: Current Medications Aspirin (Aspirin Chewable) 81 mg PO DAILY [facility] Last Admin: 10/14/16 09:30 Dose: 81 mg Clopidogrel Bisulfate (Plavix) 75 mg PO DAILY [facility] Last Admin: 10/14/16 09:30 Dose: 75 mg Daptomycin 600 mg/ Sodium (Chloride) 100 mls @ 100 mls/hr IV Q24H [facility] Stop: 10/18/16 18:01 Last Admin: 10/13/16 18:31 Dose: 100 mls/hr Piperacillin Sod/Tazobactam Sod (Zosyn 2.25 Gm Iv Premix) 50 mls @ 200 mls/hr IVPB Q8H [facility] Last Admin: 10/14/16 06:44 Dose: 200 mls/hr Insulin Glargine (Lantus) 10 unit SC DAILY [facility] Last Admin: 10/14/16 09:32 Dose: Not Given Insulin Human Regular (Novolin R) 0 unit SC ACHS [facility] PRN Reason: Protocol Last Admin: 10/14/16 12:53 Dose: Not Given Lorazepam (Ativan) 1 mg IVP Q6H PRN PRN Reason: Anxiety Last Admin: 10/09/16 16:33 Dose: 1 mg Losartan Potassium (Cozaar) 50 mg PO DAILY [facility] Last Admin: 10/14/16 09:30 Dose: 50 mg Oxycodone/Acetaminophen (Percocet 5/325 Mg Tab) 1 tab PO Q4H PRN PRN Reason: Pain, moderate (4-7) Stop: 10/15/16 07:29 Last Admin: 10/14/16 12:40 Dose: 1 tab Pantoprazole Sodium (Protonix Ec Tab) 40 mg PO DAILY [facility] Last Admin: 10/14/16 09:30 Dose: 40 mg - Labs Labs: 10/14/16 07:33 10/14/16 07:33 PT 13.3 SECONDS (9.7-12.2) H 10/12/16 08:55 INR 1.2 10/12/16 08:55 APTT 33 SECONDS (21-34) 10/12/16 08:55 - Constitutional Appears: Well, Non-toxic, No Acute Distress - Extremities Exam Additional comments: Vasc: DP non palp due to edema; b/l, PT non palp, Temp gradient is increased with feet cool to touch, CAp fill time < 5 s Derm: Grossly there is a gangrenous 4th digit noticeable with mild erythema surrounding the digit , diffuse edema is noted, there is maceration in the 3/4 interspace, wound does not probe to bone at this time, surroudning mottling of skin is noted ; there is noted to be newly formed darkening of skin overlying the 3rd digit as well as along the 3/4 MPJ, Neuro: Grossly diminished Ortho: limited exam. - Neurological Exam Neurological Exam: Alert, Awake, Oriented x3 - Psychiatric Exam Psychiatric exam: Normal Affect, Normal Mood Assessment and Plan - Assessment and Plan (Free Text) Assessment: 81 y/o male with left 4th gangrenous digit with worsening 3rd digit and forefoot. Plan: Patient evaluated and chart reviewed discussed with Dr. Gaytan in detail At this time allowing for full demarcation of the gangrenous area. probable OR next week for either 3/4 digit amputation or possible TMA depending on flow. Labs/vital reviewed applied betadine DSD to left foot Will continue to follow while on floor.
[2016-10-14] MEDS: DAPTOmycin 600 MG in Sodium Chloride 0.9% 100 ML IV SCH (18:27)
--- NOTE | 2016-10-14 20:10 | CP.PCM.PN ---
<Danny Vidales - Last Filed: 10/14/16 20:17> Subjective - Date & Time of Evaluation Date of Evaluation: 10/14/16 Time of Evaluation: 12:00 - Subjective Subjective: PGY-1 Medicine Progress Note for Dr. Garcia Patient was seen and examined at bedside. No acute event overnight. He is s/p angiogram POD #2. Patient resting in bed comfortably. Patient still has pain in his left leg. Tolerating diet. Denied fever/chills, cp, sob, palpitations, abd pain, n/v/d. Objective - Vital Signs/Intake and Output Vital Signs (last 24 hours): Temp Pulse Resp BP Pulse Ox 98.2 F 89 20 136/74 94 L 10/14/16 15:40 10/14/16 15:40 10/14/16 15:40 10/14/16 15:40 10/14/16 15:40 Intake and Output: 10/14/16 10/15/16 18:59 06:59 Intake Total 340 Output Total 300 Balance 40 - Medications Medications: Current Medications Aspirin (Aspirin Chewable) 81 mg PO DAILY [facility] Last Admin: 10/14/16 09:30 Dose: 81 mg Clopidogrel Bisulfate (Plavix) 75 mg PO DAILY [facility] Last Admin: 10/14/16 09:30 Dose: 75 mg Daptomycin 600 mg/ Sodium (Chloride) 100 mls @ 100 mls/hr IV Q24H [facility] Stop: 10/18/16 18:01 Last Admin: 10/14/16 18:27 Dose: 100 mls/hr Piperacillin Sod/Tazobactam Sod (Zosyn 2.25 Gm Iv Premix) 50 mls @ 200 mls/hr IVPB Q8H [facility] Last Admin: 10/14/16 14:55 Dose: 200 mls/hr Insulin Glargine (Lantus) 10 unit SC DAILY [facility] Last Admin: 10/14/16 09:32 Dose: Not Given Insulin Human Regular (Novolin R) 0 unit SC ACHS [facility] PRN Reason: Protocol Last Admin: 10/14/16 17:10 Dose: 2 unit Lorazepam (Ativan) 1 mg IVP Q6H PRN PRN Reason: Anxiety Last Admin: 10/09/16 16:33 Dose: 1 mg Losartan Potassium (Cozaar) 50 mg PO DAILY [facility] Last Admin: 10/14/16 09:30 Dose: 50 mg Oxycodone/Acetaminophen (Percocet 5/325 Mg Tab) 1 tab PO Q4H PRN PRN Reason: Pain, moderate (4-7) Stop: 10/15/16 07:29 Last Admin: 10/14/16 12:40 Dose: 1 tab Pantoprazole Sodium (Protonix Ec Tab) 40 mg PO DAILY [facility] Last Admin: 10/14/16 09:30 Dose: 40 mg - Labs Labs: 10/14/16 07:33 10/14/16 07:33 PT 13.3 SECONDS (9.7-12.2) H 10/12/16 08:55 INR 1.2 10/12/16 08:55 APTT 33 SECONDS (21-34) 10/12/16 08:55 - Constitutional Appears: Non-toxic, No Acute Distress - Head Exam Head Exam: ATRAUMATIC, NORMOCEPHALIC - Eye Exam Eye Exam: EOMI, Normal appearance Pupil Exam: PERRL - ENT Exam ENT Exam: Mucous Membranes Moist - Respiratory Exam Respiratory Exam: Clear to Ausculation Bilateral, NORMAL BREATHING PATTERN - Cardiovascular Exam Cardiovascular Exam: RRR, +S1, +S2 - GI/Abdominal Exam GI & Abdominal Exam: Soft, Normal Bowel Sounds. absent: Tenderness - Extremities Exam Extremities Exam: Tenderness - Back Exam Back Exam: absent: CVA tenderness (L), CVA tenderness (R) - Neurological Exam Neurological Exam: Alert, Awake, CN II-XII Intact, Oriented x3 - Psychiatric Exam Psychiatric exam: Normal Affect, Normal Mood - Skin Skin Exam: Dry, Warm Additional comments: left foot TTP feet bilateral cold to touch faint pulses bilaterally in LEs left 4th toe black without drainage Assessment and Plan - Assessment and Plan (Free Text) Plan: 1. Gangrenous Toe Vascular Consult, Dr. Brown, help appreciated Daptomycin 600 mg IVPB Q24H Zosyn 2.25gm IVPB Q8H (started 10/07/16) NS @ 70 cc/hr Nursing communication to gently wash left foot with saline daily Left foot x ray results: mild hallux deformity with degenerative changes. Diffuse osteopenia. Productive changes of 3rd and 4th metatarsal, dorsal aspect of midfoot, and level medial mallelolus (see full report). F/U Left foot MRI ID consult - Dr. Hauser - help appreciated Podiatry consult - Dr. Gaytan - help appreciated s/p angiogram POD #2 Per post op note- aortofemoral angiogram via right groin, selective angiogram left femoral artery. pathway atherectomy. 40% proximal sfa occlusion and 100% mid and distal sfa occlusion (see full report). 2. Leukocytosis Likely secondary to gangrene Monitor CBC 3. PAD Arterial doppler: 1.) Occluded left posterior tibial artery. No flow detected throughout the vessel. 2.) Continuous monophasic waveforms, beginning at left superficial femoral artery level. Calcific plaques notted throughout bilateral lower extremities. Slightly increased velocities due to vessel narrowing. No evidence of arterial occlusions of bilateral extremity arteries above the knee. (see full report) Vascular Consult, Dr. Brown, help appreciated s/p angiogram POD #2 Per post op note- aortofemoral angiogram via right groin, selective angiogram left femoral artery. pathway atherectomy. 40% proximal sfa occlusion and 100% mid and distal sfa occlusion (see full report). 4. Acute on chronic kidney injury BUN/Cr: NS @ 70 cc/hr [employer] lasix Neprhology Consult, Dr. Hernandez, help appreciated hydration and mucomyst to try to prep patient for angiogram Monitor BUN/Cr 5. History of DM Accuchecks ACHS RISS HA1C 10.0 Hold home metformin 850mg PO 6. History of CAD ASA 81mg PO daily Plavix 75mg PO daily 7. History of CHF Hold home lasix 20 mg PO daily secondary to acute on chronic kidney injury CXR 10/07/16 - diffuse increased interstitial lung markings which may represent mild edema and/or infiltrate. Patchy increased markings at the left lung base. Small nodular density at the medial left upper lung zone may represent vessel ( please see full report) 8. History of Hypothyroidism Patient not on any home medications for this TSH 4.47 Free T4 1.25 9. History of HTN Continue home Losartan 50 mg PO daily 10. Prophylactic Measures Heparin 5000U SC Q8H SCDs contraindicated secondary to PVD and gangrene Protonix 40mg PO daily <Tahir Garcia - Last Filed: 10/19/16 13:03> Objective - Vital Signs/Intake and Output Vital Signs (last 24 hours): Temp Pulse Resp BP Pulse Ox 97.6 F 82 20 180/75 H 97 10/19/16 09:13 10/19/16 09:13 10/19/16 09:13 10/19/16 09:13 10/19/16 09:13 Intake and Output: 10/19/16 10/19/16 06:59 18:59 Intake Total 990 Output Total 200 Balance 790 - Medications Medications: Current Medications Albuterol/Ipratropium (Duoneb 3 Mg/0.5 Mg (3 Ml) Ud) 3 ml INH RQ6 [facility] Last Admin: 10/19/16 07:35 Dose: 3 ml Aspirin (Aspirin Chewable) 81 mg PO DAILY [facility] Last Admin: 10/19/16 09:39 Dose: 81 mg Clopidogrel Bisulfate (Plavix) 75 mg PO DAILY [facility] Last Admin: 10/19/16 09:40 Dose: 75 mg Docusate Sodium (Colace) 100 mg PO BID [facility] Last Admin: 10/19/16 09:39 Dose: 100 mg Ferrous Sulfate (Feosol Liq) 300 mg PO BID [facility] Last Admin: 10/19/16 09:39 Dose: 300 mg Guaifenesin (Mucinex La) 600 mg PO BID [facility] Last Admin: 10/19/16 09:40 Dose: 600 mg Hydralazine HCl (Apresoline) 10 mg IVP Q4H PRN PRN Reason: Systolic Blood Pressure Last Admin: 10/19/16 09:47 Dose: 10 mg Piperacillin Sod/Tazobactam Sod (Zosyn 2.25 Gm Iv Premix) 50 mls @ 200 mls/hr IVPB Q8H [facility] Last Admin: 10/19/16 06:37 Dose: 200 mls/hr Insulin Glargine (Lantus) 5 unit SC DAILY [facility] Last Admin: 10/19/16 09:39 Dose: 5 u Insulin Human Regular (Novolin R) 0 unit SC ACHS [facility] PRN Reason: Protocol Last Admin: 10/19/16 12:28 Dose: 3 unit Lorazepam (Ativan) 1 mg IVP Q6H PRN PRN Reason: Anxiety Last Admin: 10/09/16 16:33 Dose: 1 mg Losartan Potassium (Cozaar) 50 mg PO DAILY [facility] Last Admin: 10/19/16 09:39 Dose: 50 mg Metoprolol Tartrate (Lopressor) 12.5 mg PO BID [facility] Last Admin: 10/19/16 09:40 Dose: 12.5 mg Pantoprazole Sodium (Protonix Ec Tab) 40 mg PO DAILY [facility] Last Admin: 10/19/16 09:40 Dose: 40 mg Tramadol HCl (Ultram) 25 mg PO TID PRN PRN Reason: Pain, moderate (4-7) Last Admin: 10/18/16 21:20 Dose: 25 mg - Labs Labs: 10/19/16 07:17 10/19/16 07:17 PT 13.6 SECONDS (9.7-12.2) H 10/15/16 14:29 INR 1.2 10/15/16 14:29 APTT 32 SECONDS (21-34) 10/15/16 14:29 Attending/Attestation - Attestation I have personally seen and examined this patient.: Yes I have fully participated in the care of the patient.: Yes I have reviewed all pertinent clinical information, including history, physical exam and plan: Yes Notes (Text): 10/19/16 13:03 Patient was seen and examined at bedside with the resident This is a late computer entry Patient is on treatment for the gangrenous toe Patient is also being evaluated by vascular surgery and podiatryworkup is in progress I agree with the above history and physical and assessment/plan by the resident
[2016-10-15] MEDS: Piperacill/Tazo 2.25gm in Dex 50 ML IVPB SCH ×3 (06:25→22:04)
--- NOTE | 2016-10-15 07:02 | VAS ---
DATE: 10/12/2016 PREOPERATIVE DIAGNOSIS: Gangrene of left fourth toe. POSTOPERATIVE DIAGNOSIS: Gangrene of left fourth toe. PROCEDURE CARRIED OUT: Aortofemoral angiogram via the right groin with selective catheterization of left femoral artery, pathway atherectomy of the left superficial femoral artery, balloon angioplasty using a drug-coated balloon in the proximal portion and a stent in the distal portion of the superficial femoral artery. SURGEON: Elver Brown MD ASSISTANTS: None. ANESTHESIOLOGIST: . ANESTHESIA: Local with sedation. OPERATIVE FINDINGS: The aorta and renal arteries are free of significant occlusive disease, although somewhat calcified. Both common internal and external iliac arteries and common femoral arteries are free of significant occlusive disease. On the right side, the superficial femoral and profunda femoris artery were widely patent. On the left side, there was approximately 50 % stenosis at the origin of the profunda femoris artery and a similar degree of stenosis at the origin of the right superficial femoral artery. There were 2 segmental occlusions of the superficial femoral artery on the left side. Below this, the popliteal artery was patent with anterior tibial artery runoff. There were no named vessels, which continued into the foot. On the right side , detailed pictures were not able to be obtained below the knee due to the patient's body habitus and the need to reduce the amount of dye given to the patient. Because of this, we did not take detailed pictures below the knee on the right side. Subsequent to the performance of the diagnostic arteriogram, a stiff-angled guidewire was advanced over the aortic bifurcation and a 7-Kiswahili sheath positioned at the distal portion of the common femoral artery. Using roadmapping techniques, the lesions were crossed and eventually a filter wire was inserted into the popliteal artery. Then, the atherectomy device was deployed after the administration of heparin, and this was successful in reducing the plaque burden. We then ballooned this with a 5 mm balloon and then we deployed Zilver stents in the superficial femoral artery There were some technical problems with the deployment between the first and the second stent, but eventually these were straightened out. Subsequently, we then deployed a stent. We then used a drug-coated balloon in the proximal portion of the superficial femoral artery with excellent cosmetic results. At the end of the procedure, we had excellent flow through the superficial femoral artery and through the stented area. There is no evidence of any thrombus or dissection distally. The catheter was then removed from the groin and a Perclose device deferred on the right side. Elver Brown Jr., MD cc: Tahir Garcia MD 56 TT: 10/12/2016 18:24:54 Confirmation # [id number] Dictation # [id number] dn [id number]
[2016-10-15 07:47] LABS: BASO # 0.1 K/uL (0.0-0.2); BASO % 0.6 % (0.0-2.0); EOS # 0.4 K/uL (0.0-0.7); EOS % 3.4 % (0.0-4.0); HEMATOCRIT 28.6 % (35.0-51.0); LYMPH # 1.5 K/uL (1.0-4.3); LYMPH % 13.5 % (20.0-40.0); MEAN CELL VOLUME 70.1 fL (80.0-94.0); MEAN CORPUSCULAR HEMOGLOBIN 21.7 pg (27.0-31.0); MEAN CORPUSCULAR HGB CONC 30.9 g/dL (33.0-37.0); MEAN PLATELET VOLUME 8.5 fL (7.2-11.7); MONO # 1.8 K/uL (0.0-0.8); MONO % 16.2 % (0.0-10.0); RED CELL DISTRIBUTION WIDTH 18.6 % (11.5-14.5); WHITE BLOOD COUNT 11.1 K/uL (4.8-10.8)
[2016-10-15] MEDS: (Novolin R) Insulin Human Regular 100 units/ml vial SC SCH ×4 (08:00→21:55)
[2016-10-15 08:29] LABS: POTASSIUM 4.1 mmol/L (3.6-5.2)
[2016-10-15 08:31] LABS: ALB/GLOB RATIO 0.8 (1.0-2.1); BILIRUBIN,TOTAL 0.6 mg/dL (0.2-1.3); PHOSPHOROUS 2.9 mg/dL (2.5-4.5); TOTAL PROTEIN 6.7 g/dL (6.3-8.3)
[2016-10-15 08:32] LABS: CALCIUM 8.3 mg/dl (8.6-10.4); MAGNESIUM 2.1 mg/dL (1.6-2.3)
--- NOTE | 2016-10-15 09:28 | CT ---
PROCEDURE: CT Angiography Abdomen, Pelvis and Lower Extremity with Contrast HISTORY: Claudication COMPARISON: None. TECHNIQUE: Technique: CT angiography of the abdomen, pelvis and bilateral lower extremities performed in the arterial phase of enhancement. Coronal and sagittal reformats, and well as rotating MIP images of the vessels generated at the workstation. Intravenous contrast dose: 100 milliliters Visipaque 320 Radiation dose: Total exam DLP = 8224.64 MGy-cm. This CT exam was performed using one or more of the following dose reduction techniques: Automated exposure control, adjustment of the mA and/or kV according to patient size, and/or use of iterative reconstruction technique. FINDINGS: CT ANGIOGRAPHY: ABDOMINAL AORTA:: There is mild to severe calcific plaque throughout the abdominal aorta with no aneurysm or stenosis. 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 Poststenotic dilatation. Superior mesenteric artery: Mild stenosis at the origin of the superior mesenteric artery. Inferior mesenteric artery: Unremarkable. Renal arteries: Moderate stenosis at the origin of both renal arteries. PELVIC ARTERIES: Right Common Iliac: Unremarkable. Right External Iliac: Mild eccentric calcific plaque otherwise unremarkable Right Internal Iliac: Unremarkable. Left Common Iliac: Unremarkable. Left External Iliac: Mild eccentric calcific plaque but otherwise unremarkable Left Internal Iliac: Unremarkable. RIGHT LOWER EXTREMITY ARTERIES: Right Common Femoral: Mild eccentric calcified plaque otherwise patent. Right Superficial Femoral: Moderate calcific plaque throughout the SFA with areas moderate stenosis in the mid segment. Right Profunda Femoris: Unremarkable. Right Popliteal:Moderate stenosis with noncalcific plaque. Right Anterior Tibial: Unremarkable Right Tibioperoneal Trunk: Unremarkable. Right Posterior Tibial: This calcific plaque throughout the posterior tibial artery. Difficult to appreciate flow. Right Peroneal: Calcific throughout the peroneal artery limiting its evaluation Right dorsalis pedis : Unremarkable. LEFT LOWER EXTREMITY ARTERIES: Left Common Femoral: Mild eccentric calcified plaque Left Superficial Femoral: Severe calcific plaque throughout the SFA. SFA is diffusely stenotic with areas over 90 percent stenosis in the mid and distal SFA. Left Profunda Femoris: Unremarkable. Left Popliteal: severely stenotic with noncalcified plaque. Left Anterior Tibial: Slightly tortuous and in the proximal segment. Difficult to exclude a short segment occlusion. Otherwise the anterior tibial artery is patent. Left Tibioperoneal Trunk: Calcified and believed to be occluded. Left Posterior Tibial: Moderate calcific plaque and is patent. Left Peroneal: believed to fill via collaterals. Left Dorsalis pedis: Unremarkable. NON-ANGIOGRAPHIC ASPECT OF THE EXAM: LOWER THORAX: Unremarkable. LIVER: Unremarkable. No gross lesion or ductal dilatation. GALLBLADDER AND BILE DUCTS: Cholecystectomy PANCREAS: Unremarkable. No gross lesion or ductal dilatation. SPLEEN: Unremarkable. ADRENALS: Unremarkable. No mass. KIDNEYS AND URETERS: Multiple hypodense lesions throughout right and left kidneys. The largest lesions have attenuation consistent with cysts. No hydronephrosis. STOMACH AND BOWEL: Unremarkable. No obstruction. No gross mural thickening. APPENDIX: Normal appendix. PERITONEUM: Unremarkable. No free fluid. No free air. LYMPH NODES: A 14 millimeter soft tissue density in the gastrohepatic region may represent a lymph node. BLADDER: No bladder wall thickening. The prostate has mass effect on the bladder. REPRODUCTIVE: Prostate is enlarged measuring 6.7 centimeter AP x 5.4 centimeter transfers BONES: No acute fracture. OTHER FINDINGS: None. IMPRESSION: CTA ABDOMEN PELVIS: 1. Moderate calcific plaque throughout the abdominal aorta without stenosis. 2. 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 There is poststenotic dilatation. 3. There is moderate stenosis of the origin of the superior mesenteric artery. 4. Both renal arteries have moderate stenosis at the origin. LEFT LOWER EXTREMITY CT ANGIOGRAM: 1. Unremarkable common femoral artery. 2. The superficial femoral artery has diffuse moderate calcific plaque throughout with areas severe stenosis in the mid and distal SFA. 3. Popliteal artery has moderate diffuse stenosis. 4. Left runoff shows patent anterior tibial artery. The tibioperoneal trunk is occluded. The peroneal and posterior tibial artery fills via collaterals. RIGHT LOWER EXTREMITY CTA: 1. Common femoral artery is unremarkable 2. Moderate calcific plaque throughout the SFA with there is a moderate stenosis in the mid SFA. 3. Moderate stenosis of popliteal artery 4. Unremarkable anterior tibial artery. Calcific plaque throughout the peroneal artery and posterior tibial artery limits their evaluation. NONVASCULAR FINDINGS: Prostate measures 6.7 centimeter AP x 5.4 centimeter transverse with mass effect on the urinary bladder.
[2016-10-15] MEDS: (Lantus) Insulin Glargine, Recombinant SC SCH (11:00)
[2016-10-15] MEDS: Pantoprazole 40 mg EC Tab PO SCH (11:00)
[2016-10-15] MEDS ORDERED: Tramadol 25 mg PO PRN (11:46)
[2016-10-15] MEDS: guaiFENesin 600 mg ER Tab PO SCH ×2 (12:16→17:23)
[2016-10-15] MEDS: Oxycodone/Acetaminophen 5/325 mg Tab PO PRN (12:16)
--- NOTE | 2016-10-15 13:07 | RAD ---
HISTORY: cough, wheezing COMPARISON: 10/07/2016 FINDINGS: LUNGS: Worsening diffuse increased interstitial lung markings which may represent worsening infiltrate and or edema. Patchy bibasilar airspace opacities ; left greater than right. PLEURA: As above. CARDIOVASCULAR: Tortuous aorta. Calcification at the aortic knob. Biapical pleural thickening with upper lobe granulomatous changes. OSSEOUS STRUCTURES: No significant abnormalities. VISUALIZED UPPER ABDOMEN: Normal. OTHER FINDINGS: None. IMPRESSION: Worsening diffuse increased interstitial lung markings which may represent worsening infiltrate and or edema. Patchy bibasilar airspace opacities ; left greater than right.
[2016-10-15] MEDS: Albuterol-Ipratrop 3 mg / 0.5 (3 ml) UD INH SCH ×2 (13:08→20:24)
--- NOTE | 2016-10-15 14:02 | CP.PCM.PN ---
<Danny Vidales - Last Filed: 10/15/16 14:00> Subjective - Date & Time of Evaluation Date of Evaluation: 10/15/16 Time of Evaluation: 07:50 - Subjective Subjective: PGY-1 Medicine Progress Note for Dr. Sands Patient was seen and examined at bedside. No acute event overnight. He is s/p angiogram POD #3. Patient resting in bed comfortably. Patient complaining of pain in bilateral feet. Patient is going for L foot transmetatarsal amputation of 3rd and 4th digit on Saturday. He is Tolerating diet. Admits to cough. Denied fever/chills, cp, sob, palpitations, abd pain, n/v/d. Objective - Vital Signs/Intake and Output Vital Signs (last 24 hours): Temp Pulse Resp BP Pulse Ox 98.2 F 84 20 128/76 98 10/15/16 07:00 10/15/16 13:41 10/15/16 07:00 10/15/16 07:00 10/15/16 07:00 Intake and Output: 10/15/16 10/15/16 06:59 18:59 Intake Total 400 330 Output Total 200 Balance 200 330 - Medications Medications: Current Medications Albuterol/Ipratropium (Duoneb 3 Mg/0.5 Mg (3 Ml) Ud) 3 ml INH RQ6 [facility] Last Admin: 10/15/16 13:08 Dose: Not Given Aspirin (Aspirin Chewable) 81 mg PO DAILY [facility] Last Admin: 10/15/16 11:00 Dose: 81 mg Clopidogrel Bisulfate (Plavix) 75 mg PO DAILY [facility] Last Admin: 10/15/16 11:00 Dose: 75 mg Guaifenesin (Mucinex La) 600 mg PO BID [facility] Last Admin: 10/15/16 12:16 Dose: 600 mg Daptomycin 600 mg/ Sodium (Chloride) 100 mls @ 100 mls/hr IV Q24H [facility] Stop: 10/18/16 18:01 Last Admin: 10/14/16 18:27 Dose: 100 mls/hr Piperacillin Sod/Tazobactam Sod (Zosyn 2.25 Gm Iv Premix) 50 mls @ 200 mls/hr IVPB Q8H [facility] Last Admin: 10/15/16 06:25 Dose: 200 mls/hr Insulin Glargine (Lantus) 10 unit SC DAILY [facility] Last Admin: 10/15/16 11:00 Dose: 10 u Insulin Human Regular (Novolin R) 0 unit SC ACHS [facility] PRN Reason: Protocol Last Admin: 10/15/16 11:54 Dose: 2 unit Lorazepam (Ativan) 1 mg IVP Q6H PRN PRN Reason: Anxiety Last Admin: 10/09/16 16:33 Dose: 1 mg Losartan Potassium (Cozaar) 50 mg PO DAILY [facility] Last Admin: 10/15/16 11:00 Dose: 50 mg Oxycodone/Acetaminophen (Percocet 5/325 Mg Tab) 1 tab PO Q4H PRN PRN Reason: Pain, severe (8-10) Stop: 10/18/16 11:46 Last Admin: 10/15/16 12:16 Dose: 1 tab Pantoprazole Sodium (Protonix Ec Tab) 40 mg PO DAILY [facility] Last Admin: 10/15/16 11:00 Dose: 40 mg Tramadol HCl (Ultram) 25 mg PO TID PRN PRN Reason: Pain, moderate (4-7) - Labs Labs: 10/15/16 07:35 10/15/16 07:35 PT 13.3 SECONDS (9.7-12.2) H 10/12/16 08:55 INR 1.2 10/12/16 08:55 APTT 33 SECONDS (21-34) 10/12/16 08:55 - Constitutional Appears: No Acute Distress - Head Exam Head Exam: ATRAUMATIC, NORMOCEPHALIC - Eye Exam Eye Exam: EOMI, Normal appearance Pupil Exam: PERRL - ENT Exam ENT Exam: Mucous Membranes Moist - Neck Exam Neck Exam: Normal Inspection - Respiratory Exam Respiratory Exam: Wheezes, NORMAL BREATHING PATTERN. absent: Accessory Muscle Use, Respiratory Distress - Cardiovascular Exam Cardiovascular Exam: REGULAR RHYTHM, +S1, +S2 - GI/Abdominal Exam GI & Abdominal Exam: Soft, Normal Bowel Sounds. absent: Tenderness - Extremities Exam Extremities Exam: Tenderness (bilateral feet) - Back Exam Back Exam: absent: CVA tenderness (L), CVA tenderness (R) - Neurological Exam Neurological Exam: Alert, Awake, CN II-XII Intact, Oriented x3 - Psychiatric Exam Psychiatric exam: Normal Affect, Normal Mood - Skin Skin Exam: Dry Additional comments: left foot TTP feet bilateral cold to touch faint pulses bilaterally in LEs left 4th toe black without drainage dressing freshly changed, betadine applied Assessment and Plan - Assessment and Plan (Free Text) Plan: 1. 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 Dobson, help appreciated - cardio clearance for procedure Hold anticoagulation for procedure Vascular Consult, Dr. Brown, help appreciated Daptomycin 600 mg IVPB Q24H Zosyn 2.25gm IVPB Q8H (started 10/07/16) Nursing communication to gently wash left foot with saline daily Left foot x ray results: mild hallux deformity with degenerative changes. Diffuse osteopenia. Productive changes of 3rd and 4th metatarsal, dorsal aspect of midfoot, and level medial mallelolus (see full report). ID consult - Dr. Hauser - help appreciated Podiatry consult - Dr. Gaytan - help appreciated s/p angiogram POD #3 Per post op note- aortofemoral angiogram via right groin, selective angiogram left femoral artery. pathway atherectomy. 40% proximal sfa occlusion and 100% mid and distal sfa occlusion (see full report). 2. Leukocytosis Likely secondary to gangrene vs pneumonia CXR: worsening interstial markings, patchy bibasilar airspace opacities (see full report) Duonebs PRN Mucinex for cough Sputum culture Monitor CBC 3. PAD Arterial doppler: 1.) Occluded left posterior tibial artery. No flow detected throughout the vessel. 2.) Continuous monophasic waveforms, beginning at left superficial femoral artery level. Calcific plaques notted throughout bilateral lower extremities. Slightly increased velocities due to vessel narrowing. No evidence of arterial occlusions of bilateral extremity arteries above the knee. (see full report) Vascular Consult, Dr. Brown, help appreciated s/p angiogram POD #3 Per post op note- aortofemoral angiogram via right groin, selective angiogram left femoral artery. pathway atherectomy. 40% proximal sfa occlusion and 100% mid and distal sfa occlusion (see full report). 4. Acute on chronic kidney injury BUN/Cr: 15/1.5 Holding lasix Neprhology Consult, Dr. Hernandez, help appreciated Monitor BUN/Cr 5. History of DM Accuchecks ACHS RISS HA1C 10.0 Hold home metformin 850mg PO 6. History of CAD HOLD ASA 81mg PO daily HOLD Plavix 75mg PO daily 7. History of CHF Hold home lasix 20 mg PO daily secondary to acute on chronic kidney injury CXR 10/07/16 - diffuse increased interstitial lung markings which may represent mild edema and/or infiltrate. Patchy increased markings at the left lung base. Small nodular density at the medial left upper lung zone may represent vessel ( please see full report) 8. History of Hypothyroidism Patient not on any home medications for this TSH 4.47 Free T4 1.25 9. History of HTN Continue home Losartan 50 mg PO daily 10. Prophylactic Measures Heparin 5000U SC Q8H SCDs contraindicated secondary to PVD and gangrene Protonix 40mg PO daily Duonebs <Job Sands - Last Filed: 11/19/16 12:02> Objective - Vital Signs/Intake and Output Vital Signs (last 24 hours): Temp Pulse Resp BP Pulse Ox 97.6 F 82 20 180/75 H 97 10/19/16 09:13 10/19/16 09:13 10/19/16 09:13 10/19/16 09:13 10/19/16 09:13 - Labs Labs: 10/19/16 07:17 10/19/16 07:17 PT 13.6 SECONDS (9.7-12.2) H 10/15/16 14:29 INR 1.2 10/15/16 14:29 APTT 32 SECONDS (21-34) 10/15/16 14:29 Attending/Attestation - Attestation I have personally seen and examined this patient.: Yes I have fully participated in the care of the patient.: Yes I have reviewed all pertinent clinical information, including history, physical exam and plan: Yes Notes (Text): Patient seen and examined with the resident. Agree with the resident's evaluation, assessment and plan. 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 Dobson, help appreciated - cardio clearance for procedure
--- NOTE | 2016-10-15 14:48 | CP.PCM.PN ---
Subjective - Date & Time of Evaluation Date of Evaluation: 10/15/16 Time of Evaluation: 14:43 - Subjective Subjective: 81 y/o male with left foot 2/3/4 digit gangrene. Patient seen at bedside with Dr. Gaytan. Patient asleep at time of exam. foot is worsening. Dr. Gaytan to discuss with son today. Objective - Vital Signs/Intake and Output Vital Signs (last 24 hours): Temp Pulse Resp BP Pulse Ox 98.2 F 84 20 128/76 98 10/15/16 07:00 10/15/16 13:41 10/15/16 07:00 10/15/16 07:00 10/15/16 07:00 Intake and Output: 10/15/16 10/15/16 06:59 18:59 Intake Total 400 330 Output Total 200 Balance 200 330 - Medications Medications: Current Medications Albuterol/Ipratropium (Duoneb 3 Mg/0.5 Mg (3 Ml) Ud) 3 ml INH RQ6 [facility] Last Admin: 10/15/16 13:08 Dose: Not Given Aspirin (Aspirin Chewable) 81 mg PO DAILY [facility] Last Admin: 10/15/16 11:00 Dose: 81 mg Clopidogrel Bisulfate (Plavix) 75 mg PO DAILY [facility] Last Admin: 10/15/16 11:00 Dose: 75 mg Guaifenesin (Mucinex La) 600 mg PO BID [facility] Last Admin: 10/15/16 12:16 Dose: 600 mg Daptomycin 600 mg/ Sodium (Chloride) 100 mls @ 100 mls/hr IV Q24H [facility] Stop: 10/18/16 18:01 Last Admin: 10/14/16 18:27 Dose: 100 mls/hr Piperacillin Sod/Tazobactam Sod (Zosyn 2.25 Gm Iv Premix) 50 mls @ 200 mls/hr IVPB Q8H [facility] Last Admin: 10/15/16 14:24 Dose: 200 mls/hr Insulin Glargine (Lantus) 10 unit SC DAILY [facility] Last Admin: 10/15/16 11:00 Dose: 10 u Insulin Human Regular (Novolin R) 0 unit SC ACHS [facility] PRN Reason: Protocol Last Admin: 10/15/16 11:54 Dose: 2 unit Lorazepam (Ativan) 1 mg IVP Q6H PRN PRN Reason: Anxiety Last Admin: 10/09/16 16:33 Dose: 1 mg Losartan Potassium (Cozaar) 50 mg PO DAILY [facility] Last Admin: 10/15/16 11:00 Dose: 50 mg Oxycodone/Acetaminophen (Percocet 5/325 Mg Tab) 1 tab PO Q4H PRN PRN Reason: Pain, severe (8-10) Stop: 10/18/16 11:46 Last Admin: 10/15/16 12:16 Dose: 1 tab Pantoprazole Sodium (Protonix Ec Tab) 40 mg PO DAILY [facility] Last Admin: 10/15/16 11:00 Dose: 40 mg Tramadol HCl (Ultram) 25 mg PO TID PRN PRN Reason: Pain, moderate (4-7) - Labs Labs: 10/15/16 07:35 10/15/16 07:35 PT 13.3 SECONDS (9.7-12.2) H 10/12/16 08:55 INR 1.2 10/12/16 08:55 APTT 33 SECONDS (21-34) 10/12/16 08:55 - Constitutional Appears: Well, Non-toxic - Additional Findings Additional findings: asc: DP non palp due to edema; b/l, PT non palp, Temp gradient is increased with feet cool to touch, CAp fill time < 5 s Derm: Grossly there is a gangrenous 4th digit noticeable with mild erythema surrounding the digit , diffuse edema is noted, there is maceration in the 3/4 interspace, wound does not probe to bone at this time, surroudning mottling of skin is noted ; there is noted to be newly formed darkening of skin overlying the 3rd digit as well as along the 3/4 MPJ, there is now increased redness along the plantar asepct of the 2nd and 1st as well most likely secondary to ischemia; Neuro: Grossly diminished Ortho: limited exam. Assessment and Plan - Assessment and Plan (Free Text) Assessment: 81 y/o male iwht worsening gangrene of the left foot. Plan: Patient evaluated and chart reviewed Seen with Dr. Gaytan. At this time due to the increased worsening of the gangrene and surroudning skin stability the most viable and functional procedure would be a TMA. Dr. Gaytan to discuss with the son today; I also reached out but no answer at this time. Son will need to sign consent. INR/PTT ordered; Discussed with medicine team who is to hold anticoagulants until surgery. Patient placed on the OR schedule for saturday at [address] NPO after breakfast on saturday. Redressed with betadine DSD Will continue to follow.
[2016-10-15 14:49] LABS: INR 1.2
[2016-10-15 15:08] LABS: IRON 24 ug/dL (49-181)
[2016-10-15 16:12] LABS: FOLATE 9.6 ng/mL
[2016-10-15] MEDS: DAPTOmycin 600 MG in Sodium Chloride 0.9% 100 ML IV SCH (17:24)
--- NOTE | 2016-10-15 18:27 | CP.PCM.CON ---
History of Present Illness - History of Present Illness History of Present Illness: I was asked for cardiovascular evaluation prior to TMA. Patient is an 81 year old male with PMH HTN, DM, PAD, hypercholesterolemia who presents with foot pain. The patient was found to have L SFA occlusion . The patient underwent atherectomy and drug eluting stent placement. He has developed progressive gangrene of the left foot and requires TMA. Prior to this the patient was ambulatory and did not have angina or dyspnea. Review of Systems - Constitutional Constitutional: absent: As Per HPI, Anorexia, Chills, Daytime Sleepiness, Excessive Sweating, Fatigue, Fever, Frequent Falls, Headache, Increased Appetite , Lethargy, Malaise, Night Sweats, Snoring, Sleep Apnea, Weight Gain, Weight Loss, Weakness, Other - EENT Eyes: absent: As Per HPI, Blind Spots, Blurred Vision, Change in Vision, Decreased Night Vision, Diplopia, Discharge, Dry Eye, Exophthalmos, Floaters, Irritation, Itchy Eyes, Loss of Peripheral Vision, Pain, Photophobia, Requires Corrective Lenses, Sees Flashes, Spots in Vision, Tunnel Vision, Other Visual Disturbances, Loss of Vision, Other Ears: absent: As Per HPI, Decreased Hearing, Ear Discharge, Ear Pain, Tinnitus, Abnormal Hearing, Disequilibrium, Dizziness, Other Nose/Mouth/Throat: absent: As Per HPI, Epistaxis, Nasal Congestion, Nasal Discharge, Nasal Obstruction, Nasal Trauma, Nose Pain, Post Nasal Drip, Sinus Pain, Sinus Pressure, Bleeding Gums, Change in Voice, Dental Pain, Dry Mouth, Dysphagia, Halitosis, Hoarsness, Lip Swelling, Mouth Lesions, Mouth Pain, Odynophagia, Sore Throat, Throat Swelling, Tongue Swelling, Facial Pain, Neck Pain, Neck Mass, Other - Cardiovascular Cardiovascular: absent: As Per HPI, Acrocyanosis, Chest Pain, Chest Pain at Rest , Chest Pain with Activity, Claudication, Diaphoresis, Dyspnea, Dyspnea on Exertion, Edema, Irregular Heart Rhythm, Pain Radiating to Arm/Neck/Jaw, Leg Edema, Leg Ulcers, Lightheadedness, Orthopnea, Palpitations, Paroxysmal Nocturnal Dyspnea, Pedal Edema, Radiating Pain, Rapid Heart Rate, Slow Heart Rate, Syncope, Other - Respiratory Respiratory: absent: As Per HPI, Cough, Dyspnea, Hemoptysis, Dyspnea on Exertion , Wheezing, Snoring, Stridor, Pain on Inspiration, Chest Congestion, Excessive Mucous Production, Change in Mucous Color, Pain with Coughing, Other - Gastrointestinal Gastrointestinal: absent: As Per HPI, Abdominal Pain, Belching, Bloating, Change in Bowel Habits, Change in Stool Character, Coffee Ground Emesis, Constipation, Cramping, Diarrhea, Dyspepsia, Dysphagia, Early Satiety, Excessive Flatus, Fecal Incontinence, Heartburn, Hematemesis, Hematochezia, Loose Stools, Melena, Nausea, Odynophagia, Temesmus, Vomiting, Other - Genitourinary Genitourinary: absent: As Per HPI, Change in Urinary Stream, Difficulty Urinating, Dysuria, Flank Pain, Hematuria, Pyuria, Nocturia, Urinary Incontinence, Urinary Frequency, Urinary Hesitance, Urinary Urgency, Voiding Freq/Small Amts, Freq UTI, Hx Renal/Bladder Calculi, Hx /Renal Surgery, Bladder Distension, Other - Musculoskeletal Musculoskeletal: Radiating Pain into Limb - Integumentary Integumentary: absent: As Per HPI, Acne, Alopecia, Bleeding Lesions, Change in Hair, Change in Nails, Change in Pigmentation, Changing Lesions, Dry Skin, Erythema, Furuncle, Hirsutism, Lesions, New Lesions, Non-Healing Lesions, Photosensitivity, Pruritus, Rash, Skin Pain, Skin Ulcer, Sores, Striae, Swelling , Unusual Bruising, Wounds, Jaundice, Other - Neurological Neurological: absent: As Per HPI, Abnormal Gait, Abnormal Hearing, Abnormal Movements, Abnormal Speech, Behavioral Changes, Burning Sensations, Confusion, Convulsions, Disequilibrium, Dizziness, Numbness, Focal Weakness, Frequent Falls , Headaches, Lack of Coordination, Loss of Vision, Memory Loss, Paresthesias, Radicular Pain, Restless Legs, Sensory Deficit, Syncope, Tingling, Tremor, Vertigo, Weakness, Other Visual Disturbances, Other - Psychiatric Psychiatric: absent: As Per HPI, Abnormal Sleep Pattern, Anhedonia, Anxiety, Auditory Hallucinations, Behavioral Changes, Change in Appetite, Change in Libido, Confusion, Depression, Difficulty Concentrating, Hallucinations, Homicidal Ideation, Hopelessness, Irritability, Memory Loss, Mood Swings, Panic Attacks, Paranoia, Suicidal Ideation, Visual Hallucinations, Tactile Hallucinations, Other - Endocrine Endocrine: absent: As Per HPI, Change in Body Appearance, Change in Libido, Cold Intolorance, Deepening of Voice, Excessive Sweating, Fatigue, Flushing, Heat Intolorance, Increase in Ring/Shoe/Hat Size, Palpitations, Polydipsia, Polyphagia, Polyuria, Other - Hematologic/Lymphatic Hematologic: absent: As Per HPI, Easy Bleeding, Easy Bruising, Lymphadenopathy, Other Past Patient History - Infectious Disease Hx of Infectious Diseases: None - Tetanus Immunizations Tetanus Immunization: Unknown - Past Medical History & Family History Past Medical History?: Yes - Past Social History Smoking Status: Never Smoked - CARDIAC Hx Cardiac Disorders: Yes Hx Hypercholesterolemia: Yes Hx Hypertension: Yes - PULMONARY Hx Respiratory Disorders: No - NEUROLOGICAL HX Cerebrovascular Accident: Yes - HEENT Hx HEENT Problems: Yes (glasses) Hx Cataracts: Yes (right) - RENAL Hx Chronic Kidney Disease: No - ENDOCRINE/METABOLIC Hx Diabetes Mellitus Type 2: Yes Hx Hypothyroidism: Yes - HEMATOLOGICAL/ONCOLOGICAL Hx Blood Disorders: No - INTEGUMENTARY Hx Dermatological Problems: No - MUSCULOSKELETAL/RHEUMATOLOGICAL Hx Arthritis: Yes - GASTROINTESTINAL Hx Gastrointestinal Disorders: No - GENITOURINARY/GYNECOLOGICAL Hx Genitourinary Disorders: Yes (BPH) Hx Incontinence: Yes Hx Prostate Problems: Yes (prostate surgery in 2013) - PSYCHIATRIC Hx Substance Use: No - SURGICAL HISTORY Hx Cholecystectomy: Yes - ANESTHESIA Hx Anesthesia: Yes Hx Anesthesia Reactions: No Hx Malignant Hyperthermia: No Meds Allergies/Adverse Reactions: Allergies Allergy/AdvReac Type Severity Reaction Status Date / Time No Known Allergies Allergy Verified 10/07/16 13:11 - Medications Medications: Current Medications Albuterol/Ipratropium (Duoneb 3 Mg/0.5 Mg (3 Ml) Ud) 3 ml INH RQ6 [facility] Last Admin: 10/15/16 13:08 Dose: Not Given Aspirin (Aspirin Chewable) 81 mg PO DAILY [facility] Last Admin: 10/15/16 11:00 Dose: 81 mg Clopidogrel Bisulfate (Plavix) 75 mg PO DAILY [facility] Last Admin: 10/15/16 11:00 Dose: 75 mg Guaifenesin (Mucinex La) 600 mg PO BID [facility] Last Admin: 10/15/16 17:23 Dose: 600 mg Daptomycin 600 mg/ Sodium (Chloride) 100 mls @ 100 mls/hr IV Q24H [facility] Stop: 10/18/16 18:01 Last Admin: 10/15/16 17:24 Dose: 100 mls/hr Piperacillin Sod/Tazobactam Sod (Zosyn 2.25 Gm Iv Premix) 50 mls @ 200 mls/hr IVPB Q8H [facility] Last Admin: 10/15/16 14:24 Dose: 200 mls/hr Insulin Glargine (Lantus) 10 unit SC DAILY [facility] Last Admin: 10/15/16 11:00 Dose: 10 u Insulin Human Regular (Novolin R) 0 unit SC ACHS [facility] PRN Reason: Protocol Last Admin: 10/15/16 17:25 Dose: Not Given Lorazepam (Ativan) 1 mg IVP Q6H PRN PRN Reason: Anxiety Last Admin: 10/09/16 16:33 Dose: 1 mg Losartan Potassium (Cozaar) 50 mg PO DAILY [facility] Last Admin: 10/15/16 11:00 Dose: 50 mg Oxycodone/Acetaminophen (Percocet 5/325 Mg Tab) 1 tab PO Q4H PRN PRN Reason: Pain, severe (8-10) Stop: 10/18/16 11:46 Last Admin: 10/15/16 12:16 Dose: 1 tab Pantoprazole Sodium (Protonix Ec Tab) 40 mg PO DAILY [facility] Last Admin: 10/15/16 11:00 Dose: 40 mg Tramadol HCl (Ultram) 25 mg PO TID PRN PRN Reason: Pain, moderate (4-7) Physical Exam - Constitutional Appears: Non-toxic - Head Exam Head Exam: NORMAL INSPECTION - Eye Exam Eye Exam: Normal appearance - ENT Exam ENT Exam: Mucous Membranes Moist - Neck Exam Neck exam: Positive for: Full Rom - Respiratory Exam Respiratory Exam: NORMAL BREATHING PATTERN - Cardiovascular Exam Cardiovascular Exam: REGULAR RHYTHM - GI/Abdominal Exam GI & Abdominal Exam: Normal Bowel Sounds - Rectal Exam Rectal Exam: Deferred - Extremities Exam Extremities exam: Positive for: pedal edema - Back Exam Back exam: NORMAL INSPECTION - Neurological Exam Neurological exam: Alert, Oriented x3 - Psychiatric Exam Psychiatric exam: Normal Affect - Skin Skin Exam: Normal Color Results - Vital Signs Recent Vital Signs: Last Vital Signs Temp 98.2 F 10/15/16 17:15 Pulse 78 10/15/16 17:15 Resp 20 10/15/16 17:15 BP 137/55 L 10/15/16 17:15 Pulse Ox 97 10/15/16 17:15 - Labs Result Diagrams: 10/15/16 07:35 10/15/16 07:35 Labs: Laboratory Results - last 24 hr 10/14/16 10/15/16 10/15/16 22:01 07:21 07:35 WBC 11.1 H RBC 4.08 L Hgb 8.8 L Hct 28.6 L MCV 70.1 L MCH 21.7 L MCHC 30.9 L RDW 18.6 H Plt Count 212 MPV 8.5 Neut % (Auto) 66.3 Lymph % (Auto) 13.5 L [place] % (Auto) 16.2 H Eos % (Auto) 3.4 Baso % (Auto) 0.6 Neut # 7.4 H Lymph # 1.5 [place] # 1.8 H Eos # 0.4 Baso # 0.1 PT INR APTT Sodium 135 Potassium 4.1 Chloride 103 Carbon Dioxide 20 L Anion Gap 16 BUN 15 Creatinine 1.5 Est GFR ( Amer) 54 Est GFR (Non-Af Amer) 45 POC Glucose (mg/dL) 230 H 141 H Random Glucose 130 H Calcium 8.3 L Phosphorus 2.9 Magnesium 2.1 Iron TIBC % Saturation Transferrin Ferritin Total Bilirubin 0.6 AST 36 ALT 31 Alkaline Phosphatase 116 Total Protein 6.7 Albumin 3.1 L Globulin 3.7 Albumin/Globulin Ratio 0.8 L Vitamin B12 Folate 10/15/16 10/15/16 10/15/16 11:36 14:29 17:22 WBC RBC Hgb Hct MCV MCH MCHC RDW Plt Count MPV Neut % (Auto) Lymph % (Auto) [place] % (Auto) Eos % (Auto) Baso % (Auto) Neut # Lymph # [place] # Eos # Baso # PT 13.6 H INR 1.2 APTT 32 Sodium Potassium Chloride Carbon Dioxide Anion Gap BUN Creatinine Est GFR ( Amer) Est GFR (Non-Af Amer) POC Glucose (mg/dL) 189 H 126 H Random Glucose Calcium Phosphorus Magnesium Iron 24 L TIBC 267 % Saturation 8 L Transferrin 183.45 L Ferritin 45.6 Total Bilirubin AST ALT Alkaline Phosphatase Total Protein Albumin Globulin Albumin/Globulin Ratio Vitamin B12 498 Folate 9.6 Assessment & Plan (1) Diabetic ulcer of toe of left foot Assessment and Plan: s/p endovascular therapy. continue antiplatelet tehrapy Status: Acute (2) Pre-operative cardiovascular examination Assessment and Plan: patient had an echocardiogram in August revealing presrved left ventricular function, mitral annular calcification. The patient has progressive gangreneand therefore will need to proceed with surgery. Patient is at moderate cardiovascular risk, but the surgery is necesary. will use preoperative betablocker. Status: Acute (3) Hypertension Assessment and Plan: medical therapy Status: Chronic Priority: Low
--- NOTE | 2016-10-15 23:02 | PN ---
DATE: 10/15/2016 PHYSICAL EXAMINATION: VITAL SIGNS: The patient remains afebrile. Temperature is 98.2, pulse , blood pressure 137/55, respirations are 20. HEENT: Head is atraumatic, normocephalic. NECK: Supple. LUNGS: Clear. No crackles or rales present. HEART: S1, S2 regular. ABDOMEN: Soft. EXTREMITIES: Foot remains with the dressing. White count is 11.1, hemoglobin is 8.8, hematocrit is 28.6, platelet count is 212. The patient is wa iting for a procedure done and will be continued on the antibiotics for now and he is going to get ca ia clearance. He is on daptomycin as well as Zosyn at this time. Labs show white count is 11.1, hemoglobin 8.8, hematocrit 28.6, and platelet count is 212. He has a gangrene of the toe, third and fourth toe, and will follow with the team. Jarrod Hauser MD cc: [id number] TT: 10/15/2016 23:01:55 Confirmation # [id number] Dictation # [id number] emery
[2016-10-16] MEDS: Albuterol-Ipratrop 3 mg / 0.5 (3 ml) UD INH SCH ×4 (01:07→19:35)
[2016-10-16] MEDS: Piperacill/Tazo 2.25gm in Dex 50 ML IVPB SCH ×3 (06:00→23:00)
[2016-10-16 07:48] LABS: BASO # 0.1 K/uL (0.0-0.2); BASO % 0.6 % (0.0-2.0); EOS # 0.4 K/uL (0.0-0.7); EOS % 3.7 % (0.0-4.0); HEMATOCRIT 29.4 % (35.0-51.0); LYMPH # 1.6 K/uL (1.0-4.3); LYMPH % 14.2 % (20.0-40.0); MEAN CELL VOLUME 70.5 fL (80.0-94.0); MEAN CORPUSCULAR HEMOGLOBIN 21.7 pg (27.0-31.0); MEAN CORPUSCULAR HGB CONC 30.8 g/dL (33.0-37.0); MEAN PLATELET VOLUME 8.1 fL (7.2-11.7); MONO # 1.8 K/uL (0.0-0.8); MONO % 16.2 % (0.0-10.0); RED CELL DISTRIBUTION WIDTH 18.9 % (11.5-14.5); WHITE BLOOD COUNT 11.2 K/uL (4.8-10.8)
[2016-10-16 07:51] LABS: POTASSIUM 4.3 mmol/L (3.6-5.2)
[2016-10-16 07:53] LABS: ALB/GLOB RATIO 0.8 (1.0-2.1); BILIRUBIN,TOTAL 0.5 mg/dL (0.2-1.3); PHOSPHOROUS 3.1 mg/dL (2.5-4.5); TOTAL PROTEIN 7.1 g/dL (6.3-8.3)
[2016-10-16 07:54] LABS: CALCIUM 8.5 mg/dl (8.6-10.4); MAGNESIUM 2.2 mg/dL (1.6-2.3)
[2016-10-16] MEDS: (Novolin R) Insulin Human Regular 100 units/ml vial SC SCH ×4 (08:42→22:14)
[2016-10-16] MEDS: (Lantus) Insulin Glargine, Recombinant SC SCH (11:06)
[2016-10-16] MEDS: Pantoprazole 40 mg EC Tab PO SCH (11:07)
[2016-10-16] MEDS: guaiFENesin 600 mg ER Tab PO SCH ×2 (11:07→17:51)
--- NOTE | 2016-10-16 14:20 | CP.PCM.PN ---
Subjective - Date & Time of Evaluation Date of Evaluation: 10/16/16 Time of Evaluation: 14:18 - Subjective Subjective: 81 y/o male with left foot 2/3/4 digit gangrene. Patient asleep during eval. NO acute events. For OR tomorrow for TMA. Objective - Vital Signs/Intake and Output Vital Signs (last 24 hours): Temp Pulse Resp BP Pulse Ox 98.2 F 78 20 137/55 L 97 10/15/16 17:15 10/15/16 17:15 10/15/16 17:15 10/15/16 17:15 10/15/16 17:15 Intake and Output: 10/16/16 10/16/16 06:59 18:59 Intake Total 470 Output Total 550 Balance -80 - Medications Medications: Current Medications Albuterol/Ipratropium (Duoneb 3 Mg/0.5 Mg (3 Ml) Ud) 3 ml INH RQ6 [facility] Last Admin: 10/16/16 13:42 Dose: Not Given Aspirin (Aspirin Chewable) 81 mg PO DAILY [facility] Last Admin: 10/15/16 11:00 Dose: 81 mg Clopidogrel Bisulfate (Plavix) 75 mg PO DAILY [facility] Last Admin: 10/15/16 11:00 Dose: 75 mg Guaifenesin (Mucinex La) 600 mg PO BID [facility] Last Admin: 10/16/16 11:07 Dose: 600 mg Daptomycin 600 mg/ Sodium (Chloride) 100 mls @ 100 mls/hr IV Q24H [facility] Stop: 10/18/16 18:01 Last Admin: 10/15/16 17:24 Dose: 100 mls/hr Piperacillin Sod/Tazobactam Sod (Zosyn 2.25 Gm Iv Premix) 50 mls @ 200 mls/hr IVPB Q8H [facility] Last Admin: 10/16/16 06:00 Dose: 200 mls/hr Insulin Glargine (Lantus) 10 unit SC DAILY [facility] Last Admin: 10/16/16 11:06 Dose: 10 u Insulin Human Regular (Novolin R) 0 unit SC ACHS [facility] PRN Reason: Protocol Last Admin: 10/16/16 12:47 Dose: Not Given Lorazepam (Ativan) 1 mg IVP Q6H PRN PRN Reason: Anxiety Last Admin: 10/09/16 16:33 Dose: 1 mg Losartan Potassium (Cozaar) 50 mg PO DAILY [facility] Last Admin: 10/16/16 11:07 Dose: 50 mg Oxycodone/Acetaminophen (Percocet 5/325 Mg Tab) 1 tab PO Q4H PRN PRN Reason: Pain, severe (8-10) Stop: 10/18/16 11:46 Last Admin: 10/15/16 12:16 Dose: 1 tab Pantoprazole Sodium (Protonix Ec Tab) 40 mg PO DAILY [facility] Last Admin: 10/16/16 11:07 Dose: 40 mg Tramadol HCl (Ultram) 25 mg PO TID PRN PRN Reason: Pain, moderate (4-7) - Labs Labs: 10/16/16 07:34 10/16/16 07:34 PT 13.6 SECONDS (9.7-12.2) H 10/15/16 14:29 INR 1.2 10/15/16 14:29 APTT 32 SECONDS (21-34) 10/15/16 14:29 - Constitutional Appears: Well, Non-toxic - Additional Findings Additional findings: vasc: DP non palp due to edema; b/l, PT non palp, Temp gradient is increased with feet cool to touch, CAp fill time < 5 s Derm: Grossly there is a gangrenous 4th digit noticeable with mild erythema surrounding the digit , diffuse edema is noted, there is maceration in the 3/4 interspace, wound does not probe to bone at this time, surroudning mottling of skin is noted ; there is noted to be newly formed darkening of skin overlying the 3rd digit as well as along the 3/4 MPJ, there is now increased redness along the plantar asepct of the 2nd and 1st as well most likely secondary to ischemia; Neuro: Grossly diminished Ortho: limited exam. Assessment and Plan - Assessment and Plan (Free Text) Assessment: 81 y/o male iwht worsening gangrene of the left foot. Plan: Patient evaluated and chart reviewed Seen with Dr. Gaytan. At this time due to the increased worsening of the gangrene and surroudning skin stability the most viable and functional procedure would be a TMA. Son will need to sign consent. I called and left voicemail with son as well as Dr. Gaytan but no reply from son at this time. Consult note was written and placed into the chart; if son comes to sign on the floor. Scheduled for hte OR tomorrow at 4 PM. NPO after breakfast tomorrow. Redressed with betadine dsd. Will continue to follow while patient is admitted
--- NOTE | 2016-10-16 14:47 | CP.PCM.PN ---
Subjective - Date & Time of Evaluation Date of Evaluation: 10/16/16 Time of Evaluation: 02:30 - Subjective Subjective: dictated Objective - Vital Signs/Intake and Output Vital Signs (last 24 hours): Temp Pulse Resp BP Pulse Ox 98.2 F 78 20 137/55 L 97 10/15/16 17:15 10/15/16 17:15 10/15/16 17:15 10/15/16 17:15 10/15/16 17:15 Intake and Output: 10/16/16 10/16/16 06:59 18:59 Intake Total 470 Output Total 550 Balance -80 - Medications Medications: Current Medications Albuterol/Ipratropium (Duoneb 3 Mg/0.5 Mg (3 Ml) Ud) 3 ml INH RQ6 [facility] Last Admin: 10/16/16 13:42 Dose: Not Given Aspirin (Aspirin Chewable) 81 mg PO DAILY [facility] Last Admin: 10/15/16 11:00 Dose: 81 mg Clopidogrel Bisulfate (Plavix) 75 mg PO DAILY [facility] Last Admin: 10/15/16 11:00 Dose: 75 mg Guaifenesin (Mucinex La) 600 mg PO BID [facility] Last Admin: 10/16/16 11:07 Dose: 600 mg Daptomycin 600 mg/ Sodium (Chloride) 100 mls @ 100 mls/hr IV Q24H [facility] Stop: 10/18/16 18:01 Last Admin: 10/15/16 17:24 Dose: 100 mls/hr Piperacillin Sod/Tazobactam Sod (Zosyn 2.25 Gm Iv Premix) 50 mls @ 200 mls/hr IVPB Q8H [facility] Last Admin: 10/16/16 06:00 Dose: 200 mls/hr Insulin Glargine (Lantus) 10 unit SC DAILY [facility] Last Admin: 10/16/16 11:06 Dose: 10 u Insulin Human Regular (Novolin R) 0 unit SC ACHS [facility] PRN Reason: Protocol Last Admin: 10/16/16 12:47 Dose: Not Given Lorazepam (Ativan) 1 mg IVP Q6H PRN PRN Reason: Anxiety Last Admin: 10/09/16 16:33 Dose: 1 mg Losartan Potassium (Cozaar) 50 mg PO DAILY [facility] Last Admin: 10/16/16 11:07 Dose: 50 mg Oxycodone/Acetaminophen (Percocet 5/325 Mg Tab) 1 tab PO Q4H PRN PRN Reason: Pain, severe (8-10) Stop: 10/18/16 11:46 Last Admin: 10/15/16 12:16 Dose: 1 tab Pantoprazole Sodium (Protonix Ec Tab) 40 mg PO DAILY [facility] Last Admin: 10/16/16 11:07 Dose: 40 mg Tramadol HCl (Ultram) 25 mg PO TID PRN PRN Reason: Pain, moderate (4-7) - Labs Labs: 10/16/16 07:34 10/16/16 07:34 PT 13.6 SECONDS (9.7-12.2) H 10/15/16 14:29 INR 1.2 10/15/16 14:29 APTT 32 SECONDS (21-34) 10/15/16 14:29
--- NOTE | 2016-10-16 15:05 | PN ---
DATE: 10/16/2016 SUBJECTIVE: The patient is drowsy but arousable. I asked him if he wanted to eat; however, he needs somebody to feed him. PHYSICAL EXAMINATION: VITAL SIGNS: Temperature is 98.2, pulse 78, blood pressure 137/55, respirations are 20. HEENT: Head is atraumatic, normocephalic. NECK: Supple. LUNGS: Have occasional rhonchi. HEART: S1, S2 regular. ABDOMEN: Soft, nontender, no guarding, no rigidity present. EXTREMITIES: Left foot has a dressing at this time. Right foot is unremarkable. He has peripheral vascular disease. LABORATORY DATA: Noted. White count is 11.2. BUN 16, creatinine 1.4, glucose is 126. He is on Plavix which is on hold, aspirin is on hold. He continues to be on daptomycin and Zosyn at this time. Will continue the antibiotics and will follow with the team. He has gangrene of the toes and peripheral vascular disease, diabetic. Will follow. IMPRESSION: He has worsening gangrene of the left foot and has peripheral vascular disease and he wi ll need surgery. Jarrod Hauser MD cc: [id number] TT: 10/16/2016 15:05:00 Confirmation # [id number] Dictation # [id number] emery
--- NOTE | 2016-10-16 17:27 | CP.PCM.PN ---
Addendum entered and electronically signed by Danny Vidales DO 10/16/16 17:33 : Patient moderate to high risk for procedure due to comorbidities (history of CAD , CHF, PAD, HLD, HTN, DM,) but procedure is needed for treatment of gangrene. Original Note: <Danny Vidales - Last Filed: 10/16/16 17:21> Subjective - Date & Time of Evaluation Date of Evaluation: 10/16/16 Time of Evaluation: 07:15 - Subjective Subjective: PGY-1 Medicine Progress Note for Dr. Sands Patient was seen and examined at bedside. No acute event overnight. He is s/p angiogram POD #4. Patient resting in bed comfortably. Patient continues to have bilateral foot pain. Patient is going for L foot transmetatarsal amputation of 3rd and 4th digit tomorrow at 4 pm. He will be NPO after breakfast tomorrow. Denied fever/chills, cough, cp, sob, palpitations, abd pain, n/v/d. Objective - Vital Signs/Intake and Output Vital Signs (last 24 hours): Temp Pulse Resp BP Pulse Ox 98.2 F 78 20 137/55 L 97 10/15/16 17:15 10/15/16 17:15 10/15/16 17:15 10/15/16 17:15 10/15/16 17:15 Intake and Output: 10/16/16 10/16/16 06:59 18:59 Intake Total 470 Output Total 550 Balance -80 - Medications Medications: Current Medications Albuterol/Ipratropium (Duoneb 3 Mg/0.5 Mg (3 Ml) Ud) 3 ml INH RQ6 [facility] Last Admin: 10/16/16 13:42 Dose: Not Given Aspirin (Aspirin Chewable) 81 mg PO DAILY [facility] Last Admin: 10/15/16 11:00 Dose: 81 mg Clopidogrel Bisulfate (Plavix) 75 mg PO DAILY [facility] Last Admin: 10/15/16 11:00 Dose: 75 mg Guaifenesin (Mucinex La) 600 mg PO BID [facility] Last Admin: 10/16/16 11:07 Dose: 600 mg Daptomycin 600 mg/ Sodium (Chloride) 100 mls @ 100 mls/hr IV Q24H [facility] Stop: 10/18/16 18:01 Last Admin: 10/15/16 17:24 Dose: 100 mls/hr Piperacillin Sod/Tazobactam Sod (Zosyn 2.25 Gm Iv Premix) 50 mls @ 200 mls/hr IVPB Q8H [facility] Last Admin: 10/16/16 14:47 Dose: 200 mls/hr Insulin Glargine (Lantus) 5 unit SC DAILY [facility] Insulin Human Regular (Novolin R) 0 unit SC ACHS [facility] PRN Reason: Protocol Last Admin: 10/16/16 17:06 Dose: Not Given Lorazepam (Ativan) 1 mg IVP Q6H PRN PRN Reason: Anxiety Last Admin: 10/09/16 16:33 Dose: 1 mg Losartan Potassium (Cozaar) 50 mg PO DAILY [facility] Last Admin: 10/16/16 11:07 Dose: 50 mg Metoprolol Tartrate (Lopressor) 12.5 mg PO BID [facility] Oxycodone/Acetaminophen (Percocet 5/325 Mg Tab) 1 tab PO Q4H PRN PRN Reason: Pain, severe (8-10) Stop: 10/18/16 11:46 Last Admin: 10/15/16 12:16 Dose: 1 tab Pantoprazole Sodium (Protonix Ec Tab) 40 mg PO DAILY [facility] Last Admin: 10/16/16 11:07 Dose: 40 mg Tramadol HCl (Ultram) 25 mg PO TID PRN PRN Reason: Pain, moderate (4-7) - Labs Labs: 10/16/16 07:34 10/16/16 07:34 PT 13.6 SECONDS (9.7-12.2) H 10/15/16 14:29 INR 1.2 10/15/16 14:29 APTT 32 SECONDS (21-34) 10/15/16 14:29 - Constitutional Appears: No Acute Distress - Head Exam Head Exam: ATRAUMATIC, NORMOCEPHALIC - Eye Exam Eye Exam: EOMI, Normal appearance Pupil Exam: PERRL - ENT Exam ENT Exam: Mucous Membranes Moist - Neck Exam Neck Exam: Normal Inspection - Respiratory Exam Respiratory Exam: Clear to Ausculation Bilateral, NORMAL BREATHING PATTERN - Cardiovascular Exam Cardiovascular Exam: REGULAR RHYTHM, +S1, +S2 - GI/Abdominal Exam GI & Abdominal Exam: Soft, Normal Bowel Sounds. absent: Tenderness - Extremities Exam Extremities Exam: Tenderness (bilateral feet) - Back Exam Back Exam: absent: CVA tenderness (L), CVA tenderness (R) - Neurological Exam Neurological Exam: Alert, Awake, CN II-XII Intact, Oriented x3 - Psychiatric Exam Psychiatric exam: Normal Affect, Normal Mood - Skin Skin Exam: Dry, Intact, Warm Additional comments: left foot TTP feet bilateral cold to touch faint pulses bilaterally in LEs left 4th toe black without drainage dressing freshly changed, betadine applied Assessment and Plan - Assessment and Plan (Free Text) Plan: 1. Gangrenous Toe OR tomorrow at 4 PM for transmetatarsal amputation of 3rd and 4th digit on L foot Cardio consult, Dr. Dobson, help appreciated - cardio clearance for procedure Hold anticoagulation for procedure Vascular Consult, Dr. Brown, help appreciated Daptomycin 600 mg IVPB Q24H Zosyn 2.25gm IVPB Q8H (started 10/07/16) Nursing communication to gently wash left foot with saline daily Left foot x ray results: mild hallux deformity with degenerative changes. Diffuse osteopenia. Productive changes of 3rd and 4th metatarsal, dorsal aspect of midfoot, and level medial mallelolus (see full report). ID consult - Dr. Hauser - help appreciated Podiatry consult - Dr. Gaytan - help appreciated s/p angiogram POD #4 Per post op note- aortofemoral angiogram via right groin, selective angiogram left femoral artery. pathway atherectomy. 40% proximal sfa occlusion and 100% mid and distal sfa occlusion (see full report). 2. Leukocytosis Likely secondary to gangrene vs pneumonia CXR: worsening interstial markings, patchy bibasilar airspace opacities (see full report) Duonebs PRN Mucinex for cough Sputum culture Monitor CBC 3. PAD Arterial doppler: 1.) Occluded left posterior tibial artery. No flow detected throughout the vessel. 2.) Continuous monophasic waveforms, beginning at left superficial femoral artery level. Calcific plaques notted throughout bilateral lower extremities. Slightly increased velocities due to vessel narrowing. No evidence of arterial occlusions of bilateral extremity arteries above the knee. (see full report) Vascular Consult, Dr. Brown, help appreciated s/p angiogram POD #4 Per post op note- aortofemoral angiogram via right groin, selective angiogram left femoral artery. pathway atherectomy. 40% proximal sfa occlusion and 100% mid and distal sfa occlusion (see full report). 4. Acute on chronic kidney injury BUN/Cr: 16/1.4 Holding lasix Neprhology Consult, Dr. Hernandez, help appreciated Monitor BUN/Cr 5. History of DM Accuchecks ACHS Lantus decreased to 5 units for procedure RISS HA1C 10.0 Hold home metformin 850mg PO 6. History of CAD HOLD ASA 81mg PO daily HOLD Plavix 75mg PO daily 7. History of CHF Hold home lasix 20 mg PO daily secondary to acute on chronic kidney injury CXR 10/07/16 - diffuse increased interstitial lung markings which may represent mild edema and/or infiltrate. Patchy increased markings at the left lung base. Small nodular density at the medial left upper lung zone may represent vessel ( please see full report) 8. History of Hypothyroidism Patient not on any home medications for this TSH 4.47 Free T4 1.25 9. History of HTN Continue home Losartan 50 mg PO daily 10. Anemia Hgb 9.1 will transfuse 1 unit PRBC tonight Iron 24 L TIBC 267 Transferrin 183.45 L Ferritin 45.6 11. Prophylactic Measures Heparin 5000U SC Q8H [facility] contraindicated secondary to PVD and gangrene Protonix 40mg PO daily [facility] <Job Sands - Last Filed: 11/19/16 12:40> Objective - Vital Signs/Intake and Output Vital Signs (last 24 hours): Temp Pulse Resp BP Pulse Ox 97.6 F 82 20 180/75 H 97 10/19/16 09:13 10/19/16 09:13 10/19/16 09:13 10/19/16 09:13 10/19/16 09:13 - Labs Labs: 10/19/16 07:17 10/19/16 07:17 PT 13.6 SECONDS (9.7-12.2) H 10/15/16 14:29 INR 1.2 10/15/16 14:29 APTT 32 SECONDS (21-34) 10/15/16 14:29 Attending/Attestation - Attestation I have personally seen and examined this patient.: Yes I have fully participated in the care of the patient.: Yes I have reviewed all pertinent clinical information, including history, physical exam and plan: Yes Notes (Text): 1. Gangrenous Toe OR tomorrow at 4 PM for transmetatarsal amputation of 3rd and 4th digit on L foot Cardio consult, Dr. Dobson, help appreciated - cardio clearance for procedure Hold anticoagulation for procedure Vascular Consult, Dr. Brown, help appreciated Daptomycin 600 mg IVPB Q24H Zosyn 2.25gm IVPB Q8H (started 10/07/16) Nursing communication to gently wash left foot with saline daily Left foot x ray results: mild hallux deformity with degenerative changes. Diffuse osteopenia. Productive changes of 3rd and 4th metatarsal, dorsal aspect of midfoot, and level medial mallelolus (see full report). ID consult - Dr. Hauser - help appreciated Podiatry consult - Dr. Gaytan - help appreciated s/p angiogram POD #4 Per post op note- aortofemoral angiogram via right groin, selective angiogram left femoral artery. pathway atherectomy. 40% proximal sfa occlusion and 100% mid and distal sfa occlusion (see full report). 2. Leukocytosis Likely secondary to gangrene vs pneumonia CXR: worsening interstial markings, patchy bibasilar airspace opacities (see full report) Duonebs PRN Mucinex for cough Sputum culture Monitor CBC 3. PAD Arterial doppler: 1.) Occluded left posterior tibial artery. No flow detected throughout the vessel.
[2016-10-16] MEDS: DAPTOmycin 600 MG in Sodium Chloride 0.9% 100 ML IV SCH (17:42)
--- NOTE | 2016-10-16 20:29 | CP.PCM.PN ---
Subjective - Date & Time of Evaluation Date of Evaluation: 10/16/16 Time of Evaluation: 07:25 - Subjective Subjective: Pt seen this PM and condition discussed with son Huang who is having difficulty accepting fathers condition in general which has gradually declined over past 6 months.Discussed need for distal TMA for 11/2 hrs. Son understands need for amputation with risks and possible need for further amputation and intervention by Dr Brown.Informed consent was reviewed and all questions answered and signed by son . Objective - Vital Signs/Intake and Output Vital Signs (last 24 hours): Temp Pulse Resp BP Pulse Ox 98.7 F 91 H 21 190/73 H 97 10/16/16 16:00 10/16/16 16:00 10/16/16 16:00 10/16/16 16:00 10/16/16 16:00 - Medications Medications: Current Medications Albuterol/Ipratropium (Duoneb 3 Mg/0.5 Mg (3 Ml) Ud) 3 ml INH RQ6 [facility] Last Admin: 10/16/16 19:35 Dose: Not Given Aspirin (Aspirin Chewable) 81 mg PO DAILY [facility] Last Admin: 10/15/16 11:00 Dose: 81 mg Clopidogrel Bisulfate (Plavix) 75 mg PO DAILY [facility] Last Admin: 10/15/16 11:00 Dose: 75 mg Guaifenesin (Mucinex La) 600 mg PO BID [facility] Last Admin: 10/16/16 17:51 Dose: 600 mg Daptomycin 600 mg/ Sodium (Chloride) 100 mls @ 100 mls/hr IV Q24H [facility] Stop: 10/18/16 18:01 Last Admin: 10/16/16 17:42 Dose: 100 mls/hr Piperacillin Sod/Tazobactam Sod (Zosyn 2.25 Gm Iv Premix) 50 mls @ 200 mls/hr IVPB Q8H [facility] Last Admin: 10/16/16 14:47 Dose: 200 mls/hr Insulin Glargine (Lantus) 5 unit SC DAILY [facility] Insulin Human Regular (Novolin R) 0 unit SC ACHS [facility] PRN Reason: Protocol Last Admin: 10/16/16 17:06 Dose: Not Given Lorazepam (Ativan) 1 mg IVP Q6H PRN PRN Reason: Anxiety Last Admin: 10/09/16 16:33 Dose: 1 mg Losartan Potassium (Cozaar) 50 mg PO DAILY [facility] Last Admin: 10/16/16 11:07 Dose: 50 mg Metoprolol Tartrate (Lopressor) 12.5 mg PO BID [facility] Last Admin: 10/16/16 17:50 Dose: 12.5 mg Oxycodone/Acetaminophen (Percocet 5/325 Mg Tab) 1 tab PO Q4H PRN PRN Reason: Pain, severe (8-10) Stop: 10/18/16 11:46 Last Admin: 10/15/16 12:16 Dose: 1 tab Pantoprazole Sodium (Protonix Ec Tab) 40 mg PO DAILY [facility] Last Admin: 10/16/16 11:07 Dose: 40 mg Tramadol HCl (Ultram) 25 mg PO TID PRN PRN Reason: Pain, moderate (4-7) - Labs Labs: 10/16/16 07:34 10/16/16 07:34 PT 13.6 SECONDS (9.7-12.2) H 10/15/16 14:29 INR 1.2 10/15/16 14:29 APTT 32 SECONDS (21-34) 10/15/16 14:29
[2016-10-17] MEDS: Albuterol-Ipratrop 3 mg / 0.5 (3 ml) UD INH SCH ×3 (01:13→13:14)
[2016-10-17] MEDS: Piperacill/Tazo 2.25gm in Dex 50 ML IVPB SCH ×3 (06:43→22:38)
[2016-10-17] MEDS: (Novolin R) Insulin Human Regular 100 units/ml vial SC SCH ×4 (07:40→21:00)
[2016-10-17 08:00] LABS: BASO # 0.1 K/uL (0.0-0.2); BASO % 1.2 % (0.0-2.0); EOS # 0.4 K/uL (0.0-0.7); EOS % 3.3 % (0.0-4.0); HEMATOCRIT 34.1 % (35.0-51.0); LYMPH # 1.8 K/uL (1.0-4.3); LYMPH % 14.6 % (20.0-40.0); MEAN CORPUSCULAR HEMOGLOBIN 22.6 pg (27.0-31.0); MEAN CORPUSCULAR HGB CONC 31.1 g/dL (33.0-37.0); MEAN PLATELET VOLUME 7.9 fL (7.2-11.7); MONO % 16.4 % (0.0-10.0); RED CELL DISTRIBUTION WIDTH 20.3 % (11.5-14.5)
[2016-10-17 08:02] LABS: MEAN CELL VOLUME 72.9 fL (80.0-94.0)
[2016-10-17 08:07] LABS: POTASSIUM 4.3 mmol/L (3.6-5.2)
[2016-10-17 08:09] LABS: ALB/GLOB RATIO 0.8 (1.0-2.1); BILIRUBIN,TOTAL 0.7 mg/dL (0.2-1.3); TOTAL PROTEIN 7.6 g/dL (6.3-8.3)
[2016-10-17 08:10] LABS: CALCIUM 8.7 mg/dl (8.6-10.4)
[2016-10-17] MEDS: (Lantus) Insulin Glargine, Recombinant SC SCH (09:14)
[2016-10-17] MEDS: Pantoprazole 40 mg EC Tab PO SCH (09:15)
[2016-10-17] MEDS: guaiFENesin 600 mg ER Tab PO SCH ×2 (09:15→22:36)
--- NOTE | 2016-10-17 09:25 | CP.PCM.PN ---
Subjective - Date & Time of Evaluation Date of Evaluation: 10/17/16 Time of Evaluation: 09:21 - Subjective Subjective: 81 y/o male seen at bedside with worsening left foot gangrene. Patient alert during exam. For the OR today. Objective - Vital Signs/Intake and Output Vital Signs (last 24 hours): Temp Pulse Resp BP Pulse Ox 98.5 F 68 20 156/80 H 97 10/17/16 02:00 10/17/16 08:27 10/17/16 02:00 10/17/16 02:00 10/16/16 16:00 Intake and Output: 10/17/16 10/17/16 06:59 18:59 Intake Total 750 Output Total 550 Balance 200 - Medications Medications: Current Medications Albuterol/Ipratropium (Duoneb 3 Mg/0.5 Mg (3 Ml) Ud) 3 ml INH RQ6 [facility] Last Admin: 10/17/16 07:39 Dose: Not Given Aspirin (Aspirin Chewable) 81 mg PO DAILY [facility] Last Admin: 10/15/16 11:00 Dose: 81 mg Clopidogrel Bisulfate (Plavix) 75 mg PO DAILY [facility] Last Admin: 10/15/16 11:00 Dose: 75 mg Guaifenesin (Mucinex La) 600 mg PO BID [facility] Last Admin: 10/16/16 17:51 Dose: 600 mg Daptomycin 600 mg/ Sodium (Chloride) 100 mls @ 100 mls/hr IV Q24H [facility] Stop: 10/18/16 18:01 Last Admin: 10/16/16 17:42 Dose: 100 mls/hr Piperacillin Sod/Tazobactam Sod (Zosyn 2.25 Gm Iv Premix) 50 mls @ 200 mls/hr IVPB Q8H [facility] Last Admin: 10/17/16 06:43 Dose: 200 mls/hr Insulin Glargine (Lantus) 5 unit SC DAILY [facility] Last Admin: 10/17/16 09:14 Dose: Not Given Insulin Human Regular (Novolin R) 0 unit SC ACHS [facility] PRN Reason: Protocol Last Admin: 10/17/16 07:40 Dose: Not Given Lorazepam (Ativan) 1 mg IVP Q6H PRN PRN Reason: Anxiety Last Admin: 10/09/16 16:33 Dose: 1 mg Losartan Potassium (Cozaar) 50 mg PO DAILY [facility] Last Admin: 10/17/16 09:15 Dose: 50 mg Metoprolol Tartrate (Lopressor) 12.5 mg PO BID [facility] Last Admin: 10/17/16 09:15 Dose: 12.5 mg Oxycodone/Acetaminophen (Percocet 5/325 Mg Tab) 1 tab PO Q4H PRN PRN Reason: Pain, severe (8-10) Stop: 10/18/16 11:46 Last Admin: 10/15/16 12:16 Dose: 1 tab Pantoprazole Sodium (Protonix Ec Tab) 40 mg PO DAILY [facility] Last Admin: 10/17/16 09:15 Dose: 40 mg Tramadol HCl (Ultram) 25 mg PO TID PRN PRN Reason: Pain, moderate (4-7) - Labs Labs: 10/17/16 07:49 10/17/16 07:49 PT 13.6 SECONDS (9.7-12.2) H 10/15/16 14:29 INR 1.2 10/15/16 14:29 APTT 32 SECONDS (21-34) 10/15/16 14:29 - Constitutional Appears: Well, Non-toxic - Additional Findings Additional findings: dressing left intact. Assessment and Plan - Assessment and Plan (Free Text) Assessment: 81 y/o male with worsening left foot gangrene. Plan: Patient evaluated and chart reviewed Discussed with Dr. Ferro. Dr ferro spoke with son yesterday about procedure and further complications/ procedures that may arrise in the future. Son seemed to be hesitant about condition of father, but understands necessity; consent signed and is in the chart. Patient is s/p artherectomy w/ ANDRE placement; Medical/cardiac clearance is in chart; Patient is at moderate cardiovascular risk Patient is NPO past breakfast. Scheduled for OR today at 4 pm for TMA. Will continue to follow while admitted.
--- NOTE | 2016-10-17 13:19 | CP.PCM.PN ---
<Danny Vidales - Last Filed: 10/17/16 13:16> Subjective - Date & Time of Evaluation Date of Evaluation: 10/17/16 Time of Evaluation: 07:30 - Subjective Subjective: PGY-1 Medicine Progress Note for Dr. Sands Patient was seen and examined at bedside. No acute event overnight. He is going to OR today for l Foot TMA of 3rd and 4th digits. Patient resting in bed comfortably. Patient continues to have bilateral foot pain. He is NPO except medications after breakfast. Denied fever/chills, cough, cp, sob, palpitations, abd pain, n/v/d. Objective - Vital Signs/Intake and Output Vital Signs (last 24 hours): Temp Pulse Resp BP Pulse Ox 99.2 F 71 20 177/72 H 97 10/17/16 13:13 10/17/16 13:13 10/17/16 13:13 10/17/16 13:13 10/17/16 13:13 Intake and Output: 10/17/16 10/17/16 06:59 18:59 Intake Total 750 Output Total 550 Balance 200 - Medications Medications: Current Medications Albuterol/Ipratropium (Duoneb 3 Mg/0.5 Mg (3 Ml) Ud) 3 ml INH RQ6 [facility] Last Admin: 10/17/16 13:14 Dose: Not Given Aspirin (Aspirin Chewable) 81 mg PO DAILY [facility] Last Admin: 10/15/16 11:00 Dose: 81 mg Clopidogrel Bisulfate (Plavix) 75 mg PO DAILY [facility] Last Admin: 10/15/16 11:00 Dose: 75 mg Guaifenesin (Mucinex La) 600 mg PO BID [facility] Last Admin: 10/17/16 09:15 Dose: Not Given Hydralazine HCl (Apresoline) 10 mg IVP ONCE ONE Stop: 10/17/16 13:31 Hydralazine HCl (Apresoline) 10 mg IVP Q4H [facility] Daptomycin 600 mg/ Sodium (Chloride) 100 mls @ 100 mls/hr IV Q24H [facility] Stop: 10/18/16 18:01 Last Admin: 10/16/16 17:42 Dose: 100 mls/hr Piperacillin Sod/Tazobactam Sod (Zosyn 2.25 Gm Iv Premix) 50 mls @ 200 mls/hr IVPB Q8H [facility] Last Admin: 10/17/16 06:43 Dose: 200 mls/hr Insulin Glargine (Lantus) 5 unit SC DAILY [facility] Last Admin: 10/17/16 09:14 Dose: Not Given Insulin Human Regular (Novolin R) 0 unit SC ACHS [facility] PRN Reason: Protocol Last Admin: 10/17/16 12:32 Dose: Not Given Lorazepam (Ativan) 1 mg IVP Q6H PRN PRN Reason: Anxiety Last Admin: 10/09/16 16:33 Dose: 1 mg Losartan Potassium (Cozaar) 50 mg PO DAILY [facility] Last Admin: 10/17/16 09:15 Dose: 50 mg Metoprolol Tartrate (Lopressor) 12.5 mg PO BID [facility] Last Admin: 10/17/16 09:15 Dose: 12.5 mg Oxycodone/Acetaminophen (Percocet 5/325 Mg Tab) 1 tab PO Q4H PRN PRN Reason: Pain, severe (8-10) Stop: 10/18/16 11:46 Last Admin: 10/15/16 12:16 Dose: 1 tab Pantoprazole Sodium (Protonix Ec Tab) 40 mg PO DAILY [facility] Last Admin: 10/17/16 09:15 Dose: 40 mg Tramadol HCl (Ultram) 25 mg PO TID PRN PRN Reason: Pain, moderate (4-7) - Labs Labs: 10/17/16 07:49 10/17/16 07:49 PT 13.6 SECONDS (9.7-12.2) H 10/15/16 14:29 INR 1.2 10/15/16 14:29 APTT 32 SECONDS (21-34) 10/15/16 14:29 - Constitutional Appears: No Acute Distress - Head Exam Head Exam: ATRAUMATIC, NORMOCEPHALIC - Eye Exam Eye Exam: EOMI, Normal appearance Pupil Exam: PERRL - ENT Exam ENT Exam: Mucous Membranes Moist - Neck Exam Neck Exam: Normal Inspection - Respiratory Exam Respiratory Exam: Clear to Ausculation Bilateral, NORMAL BREATHING PATTERN - Cardiovascular Exam Cardiovascular Exam: REGULAR RHYTHM, +S1, +S2 - GI/Abdominal Exam GI & Abdominal Exam: Soft, Normal Bowel Sounds. absent: Tenderness - Extremities Exam Extremities Exam: Normal Capillary Refill - Back Exam Back Exam: absent: CVA tenderness (L), CVA tenderness (R) - Neurological Exam Neurological Exam: Alert, Awake, CN II-XII Intact - Psychiatric Exam Psychiatric exam: Normal Affect, Normal Mood - Skin Skin Exam: Dry Additional comments: bilateral foot TTP feet bilateral cold to touch faint pulses bilaterally in LEs left 3rd and 4th toe black Assessment and Plan - Assessment and Plan (Free Text) Plan: 1. 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 Dobson, help appreciated - cardio clearance for procedure Hold anticoagulation for procedure Vascular Consult, Dr. Brown, help appreciated Daptomycin 600 mg IVPB Q24H Zosyn 2.25gm IVPB Q8H (started 10/07/16) Nursing communication to gently wash left foot with saline daily Left foot x ray results: mild hallux deformity with degenerative changes. Diffuse osteopenia. Productive changes of 3rd and 4th metatarsal, dorsal aspect of midfoot, and level medial mallelolus (see full report). ID consult - Dr. Hauser - help appreciated Podiatry consult - Dr. Gaytan - help appreciated s/p angiogram POD #5 Per post op note- aortofemoral angiogram via right groin, selective angiogram left femoral artery. pathway atherectomy. 40% proximal sfa occlusion and 100% mid and distal sfa occlusion (see full report). 2. Leukocytosis Likely secondary to gangrene vs pneumonia CXR: worsening interstial markings, patchy bibasilar airspace opacities (see full report) Duonebs PRN Mucinex for cough Sputum culture Monitor CBC 3. PAD Arterial doppler: 1.) Occluded left posterior tibial artery. No flow detected throughout the vessel. 2.) Continuous monophasic waveforms, beginning at left superficial femoral artery level. Calcific plaques notted throughout bilateral lower extremities. Slightly increased velocities due to vessel narrowing. No evidence of arterial occlusions of bilateral extremity arteries above the knee. (see full report) Vascular Consult, Dr. Brown, help appreciated s/p angiogram POD #5 Per post op note- aortofemoral angiogram via right groin, selective angiogram left femoral artery. pathway atherectomy. 40% proximal sfa occlusion and 100% mid and distal sfa occlusion (see full report). 4. Acute on chronic kidney injury BUN/Cr: 16/1.4 Holding lasix Neprhology Consult, Dr. Hernandez, help appreciated Monitor BUN/Cr 5. History of DM Accuchecks ACHS Lantus decreased to 5 units for procedure RISS HA1C 10.0 Hold home metformin 850mg PO 6. History of CAD HOLD ASA 81mg PO daily HOLD Plavix 75mg PO daily 7. History of CHF Hold home lasix 20 mg PO daily secondary to acute on chronic kidney injury CXR 10/07/16 - diffuse increased interstitial lung markings which may represent mild edema and/or infiltrate. Patchy increased markings at the left lung base. Small nodular density at the medial left upper lung zone may represent vessel ( please see full report) 8. History of Hypothyroidism Patient not on any home medications for this TSH 4.47 Free T4 1.25 9. History of HTN Continue home Losartan 50 mg PO daily Metoprolol 12.5 mg PO BID Hydralazine 10 mg IVP Q4H PRN 10. Anemia Hgb 10.6 transfused 1 unit PRBC last night Iron 24 L TIBC 267 Transferrin 183.45 L Ferritin 45.6 11. Prophylactic Measures Heparin 5000U SC Q8H SCDs contraindicated secondary to PVD and gangrene Protonix 40mg PO daily Duonefamilia <Job Sands - Last Filed: 11/19/16 12:50> Objective - Vital Signs/Intake and Output Vital Signs (last 24 hours): Temp Pulse Resp BP Pulse Ox 97.6 F 82 20 180/75 H 97 10/19/16 09:13 10/19/16 09:13 10/19/16 09:13 10/19/16 09:13 10/19/16 09:13 - Labs Labs: 10/19/16 07:17 10/19/16 07:17 PT 13.6 SECONDS (9.7-12.2) H 10/15/16 14:29 INR 1.2 10/15/16 14:29 APTT 32 SECONDS (21-34) 10/15/16 14:29 Attending/Attestation - Attestation I have personally seen and examined this patient.: Yes I have fully participated in the care of the patient.: Yes I have reviewed all pertinent clinical information, including history, physical exam and plan: Yes Notes (Text): Patient seen and examined with the resident. Agree with the resident's evaluation, assessment and plan. 1. 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 Dobson, help appreciated - cardio clearance for procedure Hold anticoagulation for procedure Vascular Consult, Dr. Brown, help appreciated Daptomycin 600 mg IVPB Q24H Zosyn 2.25gm IVPB Q8H (started 10/07/16) Nursing communication to gently wash left foot with saline daily Left foot x ray results: mild hallux deformity with degenerative changes. Diffuse osteopenia. Productive changes of 3rd and 4th metatarsal, dorsal aspect of midfoot, and level medial mallelolus (see full report). ID consult - Dr. Hauser - help appreciated Podiatry consult - Dr. Gaytan - help appreciated s/p angiogram POD #5 Per post op note- aortofemoral angiogram via right groin, selective angiogram left femoral artery. pathway atherectomy. 40% proximal sfa occlusion and 100% mid and distal sfa occlusion (see full report). 2. Leukocytosis Likely secondary to gangrene vs pneumonia CXR: worsening interstial markings, patchy bibasilar airspace opacities (see full report) Duonebs PRN Mucinex for cough Sputum culture Monitor CBC 3. PAD Arterial doppler: 1.) Occluded left posterior tibial artery. No flow detected throughout the vessel.
[2016-10-17] MEDS ORDERED: Lidocaine 2% Inj (20ml) ONE (16:23)
[2016-10-17] MEDS ORDERED: Bupivacaine HCl 0.5% PF (10 ml) Inj ONE (16:24)
[2016-10-17] MEDS ORDERED: Bupivacaine HCl 0.25% PF (10 ml) Inj ONE ×2 (16:43→17:20)
[2016-10-17] MEDS ORDERED: Lidocaine 1% Inj (20ml) ONE (16:43)
[2016-10-17] MEDS ORDERED: Midazolam 2 MG/2 ML VIAL ONE ×2 (16:45→18:35)
[2016-10-17] MEDS ORDERED: Propofol 10 mg/ml Inj (20 ML) ONE ×3 (16:45→19:00)
[2016-10-17] MEDS ORDERED: HYDROmorphone 0.5 mg/0.5 ml ISec IVP PRN (19:37)
[2016-10-17] MEDS ORDERED: Lactated Ringer's 500 ML IV ONE (19:54)
--- NOTE | 2016-10-17 21:03 | PCM.SURG1 ---
Surgeon's Initial Post Op Note - Surgeon's Notes Surgeon: Lucila CORONA Filler Sifter Helper: Rama CORONA PGY-1 Type of Anesthesia: IV Sedation, Local Pre-Operative Diagnosis: left foot gangrene Operative Findings: see dictation Post-Operative Diagnosis: same Operation Performed: left foot transmetatarsal amputation Specimen/Specimens Removed: bone and soft tissue left foot Estimated Blood Loss: EBL {In ML}: 25 Blood Products Given: N/A Drains Used: No Drains Post-Op Condition: Good Date of Surgery/Procedure: 10/17/16 Time of Surgery/Procedure: 17:00
--- NOTE | 2016-10-17 21:29 | CP.PCM.PN ---
Subjective - Date & Time of Evaluation Date of Evaluation: 10/17/16 Time of Evaluation: 02:45 - Subjective Subjective: dictated Objective - Vital Signs/Intake and Output Vital Signs (last 24 hours): Temp Pulse Resp BP Pulse Ox 97.4 F L 55 L 22 164/78 H 100 10/17/16 20:30 10/17/16 20:30 10/17/16 20:30 10/17/16 20:30 10/17/16 20:30 Intake and Output: 10/17/16 10/18/16 18:59 06:59 Intake Total 1530 Balance 1530 - Medications Medications: Current Medications Albuterol/Ipratropium (Duoneb 3 Mg/0.5 Mg (3 Ml) Ud) 3 ml INH RQ6 [facility] Last Admin: 10/17/16 13:14 Dose: Not Given Aspirin (Aspirin Chewable) 81 mg PO DAILY [facility] Last Admin: 10/15/16 11:00 Dose: 81 mg Clopidogrel Bisulfate (Plavix) 75 mg PO DAILY [facility] Last Admin: 10/15/16 11:00 Dose: 75 mg Guaifenesin (Mucinex La) 600 mg PO BID [facility] Last Admin: 10/17/16 09:15 Dose: Not Given Hydralazine HCl (Apresoline) 10 mg IVP Q4H PRN PRN Reason: Systolic Blood Pressure Daptomycin 600 mg/ Sodium (Chloride) 100 mls @ 100 mls/hr IV Q24H [facility] Stop: 10/18/16 18:01 Last Admin: 10/16/16 17:42 Dose: 100 mls/hr Piperacillin Sod/Tazobactam Sod (Zosyn 2.25 Gm Iv Premix) 50 mls @ 200 mls/hr IVPB Q8H [facility] Last Admin: 10/17/16 15:48 Dose: 200 mls/hr Insulin Glargine (Lantus) 5 unit SC DAILY [facility] Last Admin: 10/17/16 09:14 Dose: Not Given Insulin Human Regular (Novolin R) 0 unit SC ACHS [facility] PRN Reason: Protocol Last Admin: 10/17/16 17:00 Dose: Not Given Lorazepam (Ativan) 1 mg IVP Q6H PRN PRN Reason: Anxiety Last Admin: 10/09/16 16:33 Dose: 1 mg Losartan Potassium (Cozaar) 50 mg PO DAILY [facility] Last Admin: 10/17/16 09:15 Dose: 50 mg Metoprolol Tartrate (Lopressor) 12.5 mg PO BID [facility] Last Admin: 10/17/16 09:15 Dose: 12.5 mg Oxycodone/Acetaminophen (Percocet 5/325 Mg Tab) 1 tab PO Q4H PRN PRN Reason: Pain, severe (8-10) Stop: 10/18/16 11:46 Last Admin: 10/15/16 12:16 Dose: 1 tab Pantoprazole Sodium (Protonix Ec Tab) 40 mg PO DAILY [facility] Last Admin: 10/17/16 09:15 Dose: 40 mg Tramadol HCl (Ultram) 25 mg PO TID PRN PRN Reason: Pain, moderate (4-7) - Labs Labs: 10/17/16 07:49 10/17/16 07:49 PT 13.6 SECONDS (9.7-12.2) H 10/15/16 14:29 INR 1.2 10/15/16 14:29 APTT 32 SECONDS (21-34) 10/15/16 14:29
[2016-10-17] MEDS: DAPTOmycin 600 MG in Sodium Chloride 0.9% 100 ML IV SCH (21:35)
--- NOTE | 2016-10-17 22:40 | PN ---
DATE: 10/17/2016 The patient was seen around 3:00. His son was at the bedside. He was going to go to the OR around 4:00. The patient had no emotions about losing his toes but son had many questions why his foot needed surgery; that 2 toes were necrotic, why they are going to remove the old TMA. This patient has severe peripheral vascular disease which cannot be fix, and has gangrene toes. I explained to him that it was important that the infection does not spread to further toes, and since his vascular supply was poor he was not improving; in fact, he was deteriorating. He has been in the hospital with antibiotics and has not had much . He had no other complaints. T-max was 97.4, pulse of 62, blood pressure 152/59, respirations were 15. HEAD: Atraumatic, normocephalic. NECK: Supple. LUNGS: Clear. Decreased breath sounds bilaterally. HEART: S1, S2 is regular. ABDOMEN: Soft, nontender, no guarding, no rigidity present. Left foot had a dressing present on that, and right foot was unremarkable. Labs were noted. Labs show white count is 12 today, hemoglobin 10.6, hematocrit 34.1, platelet count is 244. Sodium 135, potassium 4.3, chloride 100 , CO2 is 22, BUN is 16, creatinine is 1.4. So at this time, blood cultures and urine cultures were negative. I will continue with the daptomycin as well as Zosyn for now, and will follow with the podiatry as well as vascular surgeon. Jarrod Hauser MD cc: [id number] TT: 10/17/2016 22:39:14 Confirmation # [id number] Dictation # [id number] GILBERT
[2016-10-17 23:26] VITALS: RESP 20
[2016-10-18] MEDS: Albuterol-Ipratrop 3 mg / 0.5 (3 ml) UD INH SCH ×4 (01:33→19:42)
[2016-10-18] MEDS: Oxycodone/Acetaminophen 5/325 mg Tab PO PRN (05:08)
[2016-10-18] MEDS: Piperacill/Tazo 2.25gm in Dex 50 ML IVPB SCH ×3 (06:14→22:18)
[2016-10-18 07:46] LABS: BASO # 0.1 K/uL (0.0-0.2); BASO % 0.4 % (0.0-2.0); HEMATOCRIT 32.2 % (35.0-51.0); LYMPH # 0.7 K/uL (1.0-4.3); LYMPH % 5.8 % (20.0-40.0); MEAN CELL VOLUME 72.4 fL (80.0-94.0); MEAN CORPUSCULAR HEMOGLOBIN 22.4 pg (27.0-31.0); MEAN CORPUSCULAR HGB CONC 30.9 g/dL (33.0-37.0); MEAN PLATELET VOLUME 8.2 fL (7.2-11.7); MONO # 0.6 K/uL (0.0-0.8); MONO % 4.3 % (0.0-10.0); NRBC % 0.1 % (0.0-2.0); PLATELET COUNT 264 K/uL (130-400); RED CELL DISTRIBUTION WIDTH 19.8 % (11.5-14.5); WHITE BLOOD COUNT 12.9 K/uL (4.8-10.8)
[2016-10-18 07:56] LABS: CHLORIDE 102 mmol/L (98-107); POTASSIUM 4.6 mmol/L (3.6-5.2); SODIUM 133 mmol/L (132-148)
[2016-10-18 07:58] LABS: BILIRUBIN,TOTAL 0.5 mg/dL (0.2-1.3); GFR AFRICAN-AMERICAN > 60
[2016-10-18 07:59] LABS: ALB/GLOB RATIO 0.8 (1.0-2.1); ALKALINE PHOSPHATASE 126 U/L (38-126); ALT/SGPT 45 U/L (21-72); AST/SGOT 49 U/L (17-59); BLOOD UREA NITROGEN 20 mg/dL (9-20); CALCIUM 8.4 mg/dl (8.6-10.4); CARBON DIOXIDE 19 mmol/L (22-30); GLUCOSE,RANDOM 235 mg/dL (75-110); TOTAL PROTEIN 7.4 g/dL (6.3-8.3)
--- NOTE | 2016-10-18 08:11 | RAD ---
PROCEDURE: Left Foot Radiographs. HISTORY: s/p left foot surgery COMPARISON: 10/07/2016 FINDINGS: BONES: Interval amputation of the 1st 2nd 3rd 4th 5th digits -mid metatarsal bone level has occurred. 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 Atherosclerotic vascular calcifications noted IMPRESSION: Recent post amputation changes
[2016-10-18] MEDS: (Novolin R) Insulin Human Regular 100 units/ml vial SC SCH ×4 (08:20→22:29)
[2016-10-18 09:36] LABS: NEUTROPHIL 91 % (50-75); TOTAL CELLS COUNTED 100
[2016-10-18] MEDS: guaiFENesin 600 mg ER Tab PO SCH ×2 (09:59→17:34)
[2016-10-18] MEDS: Pantoprazole 40 mg EC Tab PO SCH (09:59)
[2016-10-18] MEDS: (Lantus) Insulin Glargine, Recombinant SC SCH (10:01)
[2016-10-18 10:03] VITALS: O2SAT 97
--- NOTE | 2016-10-18 10:26 | CP.PCM.PN ---
Subjective - Date & Time of Evaluation Date of Evaluation: 10/18/16 Time of Evaluation: 10:21 - Subjective Subjective: 81 y/o male 1 day s/p left foot TMA. Patient is awake in bed upon exam. Son is at the bedside with father who is concerned following procedure. Patient is alert to my presence upon entering and understands that i need to change his dressing and evaluate surgical site. NO acute overnight events note.d Objective - Vital Signs/Intake and Output Vital Signs (last 24 hours): Temp Pulse Resp BP Pulse Ox 98.7 F 70 20 142/72 97 10/18/16 08:00 10/18/16 08:00 10/18/16 08:00 10/18/16 08:00 10/18/16 08:00 Intake and Output: 10/18/16 10/18/16 06:59 18:59 Intake Total 150 Balance 150 - Medications Medications: Current Medications Albuterol/Ipratropium (Duoneb 3 Mg/0.5 Mg (3 Ml) Ud) 3 ml INH RQ6 [facility] Last Admin: 10/18/16 07:47 Dose: 3 ml Aspirin (Aspirin Chewable) 81 mg PO DAILY [facility] Last Admin: 10/15/16 11:00 Dose: 81 mg Clopidogrel Bisulfate (Plavix) 75 mg PO DAILY [facility] Last Admin: 10/15/16 11:00 Dose: 75 mg Docusate Sodium (Colace) 100 mg PO BID [facility] Ferrous Sulfate (Feosol Liq) 300 mg PO BID [facility] Guaifenesin (Mucinex La) 600 mg PO BID [facility] Last Admin: 10/18/16 09:59 Dose: 600 mg Hydralazine HCl (Apresoline) 10 mg IVP Q4H PRN PRN Reason: Systolic Blood Pressure Last Admin: 10/17/16 22:29 Dose: 10 mg Daptomycin 600 mg/ Sodium (Chloride) 100 mls @ 100 mls/hr IV Q24H [facility] Stop: 10/18/16 18:01 Last Admin: 10/17/16 21:35 Dose: 100 mls/hr Piperacillin Sod/Tazobactam Sod (Zosyn 2.25 Gm Iv Premix) 50 mls @ 200 mls/hr IVPB Q8H [facility] Last Admin: 10/18/16 06:14 Dose: 200 mls/hr Insulin Glargine (Lantus) 5 unit SC DAILY [facility] Last Admin: 10/18/16 10:01 Dose: 5 u Insulin Human Regular (Novolin R) 0 unit SC ACHS [facility] PRN Reason: Protocol Last Admin: 10/18/16 08:20 Dose: 3 unit Lorazepam (Ativan) 1 mg IVP Q6H PRN PRN Reason: Anxiety Last Admin: 10/09/16 16:33 Dose: 1 mg Losartan Potassium (Cozaar) 50 mg PO DAILY [facility] Last Admin: 10/18/16 09:59 Dose: 50 mg Metoprolol Tartrate (Lopressor) 12.5 mg PO BID [facility] Last Admin: 10/18/16 09:59 Dose: 12.5 mg Oxycodone/Acetaminophen (Percocet 5/325 Mg Tab) 1 tab PO Q4H PRN PRN Reason: Pain, severe (8-10) Stop: 10/18/16 11:46 Last Admin: 10/18/16 05:08 Dose: 1 tab Pantoprazole Sodium (Protonix Ec Tab) 40 mg PO DAILY [facility] Last Admin: 10/18/16 09:59 Dose: 40 mg Tramadol HCl (Ultram) 25 mg PO TID PRN PRN Reason: Pain, moderate (4-7) - Labs Labs: 10/18/16 07:34 10/18/16 07:34 PT 13.6 SECONDS (9.7-12.2) H 10/15/16 14:29 INR 1.2 10/15/16 14:29 APTT 32 SECONDS (21-34) 10/15/16 14:29 - Constitutional Appears: Well, Non-toxic - Neurological Exam Neurological Exam: Alert, Awake - Psychiatric Exam Psychiatric exam: Normal Affect, Normal Mood - Skin Skin Exam: Warm - Additional Findings Additional findings: Vasc: DP non palp due to edema secondary to surgery; b/l, PT non palp, Temp gradient is increasedl, CAp fill time < 5 s Derm: - Surgical site: there is a surgical incisoin site from TMA performed, the skin surrounding the incision site is closed and intact with sutures placed along site; there is mild surrounding edema, no erythema is noted, mild sanguine drainage noted on dressing, no active bleeding noted, no signs of necrosis is noted at this time along the surgical incision, there is minimal maceration noted at the dorsolateral ([id number] area) at incision site, no signs of infection noted at this time Neuro: Grossly diminished Ortho: s/p L TMA Assessment and Plan - Assessment and Plan (Free Text) Assessment: 81 y/o male seen and evaluated 1 day s/p left foot TMA Plan: Patient evaluated and chart evaluated Discussed with Dr. Gaytan. At this time plan is to observe for skin dehiscence; WBC noted to be 12.9 today; redressed surgical site with xeroform and DSD. Will continue to follow while admitted.
[2016-10-18] MEDS: Ferrous Sulfate 300 mg/5 mL Liq UD PO SCH ×2 (11:23→17:34)
--- NOTE | 2016-10-18 14:24 | CP.PCM.PN ---
Addendum entered and electronically signed by Danny Vidales DO 10/18/16 14:38 : Patient is POD#1 s/p TMA of L foot not Right foot. - Skin Skin Exam: Dry Additional comments: Dressing clean, dry, intact on L foot s/p TMA bilateral foot TTP faint pulses bilaterally in LEs 1. Left foot Gangrene POD#1 s/p transmetatarsal amputation Moderate to high cardio risk due to comobidities Cardio consult, Dr. Dobson, help appreciated - cardio clearance for procedure Hold anticoagulation for procedure Vascular Consult, Dr. Brown, help appreciated Daptomycin 600 mg IVPB Q24H Zosyn 2.25gm IVPB Q8H (started 10/07/16) Nursing communication to gently wash left foot with saline daily Left foot x ray results: mild hallux deformity with degenerative changes. Diffuse osteopenia. Productive changes of 3rd and 4th metatarsal, dorsal aspect of midfoot, and level medial mallelolus (see full report). ID consult - Dr. Hauser - help appreciated Podiatry consult - Dr. Gaytan - help appreciated s/p angiogram - aortofemoral angiogram via right groin, selective angiogram left femoral artery. pathway atherectomy. 40% proximal sfa occlusion and 100% mid and distal sfa occlusion (see full report). Original Note: <Danny Vidales - Last Filed: 10/18/16 14:19> Subjective - Date & Time of Evaluation Date of Evaluation: 10/18/16 Time of Evaluation: 07:05 - Subjective Subjective: PGY-1 Medicine Progress Note for Dr. Sands Patient was seen and examined at bedside. No acute event overnight. He POD#1 s/ p TMA of right foot. Patient resting in bed comfortably. Patient continues to have bilateral foot pain. Denied fever/chills, cough, cp, sob, palpitations, abd pain, n/v/d. Objective - Vital Signs/Intake and Output Vital Signs (last 24 hours): Temp Pulse Resp BP Pulse Ox 98.7 F 70 20 142/72 97 10/18/16 08:00 10/18/16 08:00 10/18/16 08:00 10/18/16 08:00 10/18/16 08:00 Intake and Output: 10/18/16 10/18/16 06:59 18:59 Intake Total 150 Balance 150 - Medications Medications: Current Medications Albuterol/Ipratropium (Duoneb 3 Mg/0.5 Mg (3 Ml) Ud) 3 ml INH RQ6 [facility] Last Admin: 10/18/16 13:23 Dose: Not Given Aspirin (Aspirin Chewable) 81 mg PO DAILY [facility] Last Admin: 10/15/16 11:00 Dose: 81 mg Clopidogrel Bisulfate (Plavix) 75 mg PO DAILY [facility] Last Admin: 10/15/16 11:00 Dose: 75 mg Docusate Sodium (Colace) 100 mg PO BID [facility] Last Admin: 10/18/16 11:23 Dose: 100 mg Ferrous Sulfate (Feosol Liq) 300 mg PO BID [facility] Last Admin: 10/18/16 11:23 Dose: 300 mg Guaifenesin (Mucinex La) 600 mg PO BID [facility] Last Admin: 10/18/16 09:59 Dose: 600 mg Hydralazine HCl (Apresoline) 10 mg IVP Q4H PRN PRN Reason: Systolic Blood Pressure Last Admin: 10/17/16 22:29 Dose: 10 mg Daptomycin 600 mg/ Sodium (Chloride) 100 mls @ 100 mls/hr IV Q24H [facility] Stop: 10/18/16 18:01 Last Admin: 10/17/16 21:35 Dose: 100 mls/hr Piperacillin Sod/Tazobactam Sod (Zosyn 2.25 Gm Iv Premix) 50 mls @ 200 mls/hr IVPB Q8H [facility] Last Admin: 10/18/16 06:14 Dose: 200 mls/hr Insulin Glargine (Lantus) 5 unit SC DAILY [facility] Last Admin: 10/18/16 10:01 Dose: 5 u Insulin Human Regular (Novolin R) 0 unit SC ACHS [facility] PRN Reason: Protocol Last Admin: 10/18/16 12:30 Dose: 3 unit Lorazepam (Ativan) 1 mg IVP Q6H PRN PRN Reason: Anxiety Last Admin: 10/09/16 16:33 Dose: 1 mg Losartan Potassium (Cozaar) 50 mg PO DAILY [facility] Last Admin: 10/18/16 09:59 Dose: 50 mg Metoprolol Tartrate (Lopressor) 12.5 mg PO BID [facility] Last Admin: 10/18/16 09:59 Dose: 12.5 mg Pantoprazole Sodium (Protonix Ec Tab) 40 mg PO DAILY [facility] Last Admin: 10/18/16 09:59 Dose: 40 mg Tramadol HCl (Ultram) 25 mg PO TID PRN PRN Reason: Pain, moderate (4-7) - Labs Labs: 10/18/16 07:34 10/18/16 07:34 PT 13.6 SECONDS (9.7-12.2) H 10/15/16 14:29 INR 1.2 10/15/16 14:29 APTT 32 SECONDS (21-34) 10/15/16 14:29 - Constitutional Appears: No Acute Distress - Head Exam Head Exam: ATRAUMATIC, NORMOCEPHALIC - Eye Exam Eye Exam: EOMI, Normal appearance - ENT Exam ENT Exam: Mucous Membranes Moist - Neck Exam Neck Exam: Normal Inspection - Respiratory Exam Respiratory Exam: Clear to Ausculation Bilateral, NORMAL BREATHING PATTERN - Cardiovascular Exam Cardiovascular Exam: REGULAR RHYTHM, +S1, +S2 - GI/Abdominal Exam GI & Abdominal Exam: Soft, Normal Bowel Sounds. absent: Tenderness - Extremities Exam Extremities Exam: Normal Capillary Refill - Back Exam Back Exam: absent: CVA tenderness (L), CVA tenderness (R) - Neurological Exam Neurological Exam: Alert, Awake, CN II-XII Intact - Psychiatric Exam Psychiatric exam: Normal Affect, Normal Mood - Skin Skin Exam: Dry Additional comments: Dressing clean, dry, intact on R foot s/p TMA bilateral foot TTP faint pulses bilaterally in LEs Assessment and Plan - Assessment and Plan (Free Text) Plan: 1. Right foot Gangrene POD#1 s/p transmetatarsal amputation Moderate to high cardio risk due to comobidities Cardio consult, Dr. Dobson, help appreciated - cardio clearance for procedure Hold anticoagulation for procedure Vascular Consult, Dr. Brown, help appreciated Daptomycin 600 mg IVPB Q24H Zosyn 2.25gm IVPB Q8H (started 10/07/16) Nursing communication to gently wash left foot with saline daily Left foot x ray results: mild hallux deformity with degenerative changes. Diffuse osteopenia. Productive changes of 3rd and 4th metatarsal, dorsal aspect of midfoot, and level medial mallelolus (see full report). ID consult - Dr. Hauser - help appreciated Podiatry consult - Dr. Gaytan - help appreciated s/p angiogram - aortofemoral angiogram via right groin, selective angiogram left femoral artery. pathway atherectomy. 40% proximal sfa occlusion and 100% mid and distal sfa occlusion (see full report). 2. Leukocytosis likely secondary to gangrene and procedure POD#1 s/p transmetatarsal amputation CXR: worsening interstial markings, patchy bibasilar airspace opacities (see full report) Duonebs PRN Monitor CBC 3. PAD Arterial doppler: 1.) Occluded left posterior tibial artery. No flow detected throughout the vessel. 2.) Continuous monophasic waveforms, beginning at left superficial femoral artery level. Calcific plaques notted throughout bilateral lower extremities. Slightly increased velocities due to vessel narrowing. No evidence of arterial occlusions of bilateral extremity arteries above the knee. (see full report) Vascular Consult, Dr. Brown, help appreciated s/p angiogram - aortofemoral angiogram via right groin, selective angiogram left femoral artery. pathway atherectomy. 40% proximal sfa occlusion and 100% mid and distal sfa occlusion (see full report). 4. Acute on chronic kidney injury BUN/Cr: 20/1.3 Holding lasix Neprhology Consult, Dr. Hernandez, help appreciated Monitor BUN/Cr 5. History of DM Accuchecks ACHS Lantus decreased to 5 units for procedure RISS HA1C 10.0 Hold home metformin 850mg PO 6. History of CAD ASA 81mg PO daily Plavix 75mg PO daily 7. History of CHF Hold home lasix 20 mg PO daily secondary to acute on chronic kidney injury CXR 10/07/16 - diffuse increased interstitial lung markings which may represent mild edema and/or infiltrate. Patchy increased markings at the left lung base. Small nodular density at the medial left upper lung zone may represent vessel ( please see full report) 8. History of Hypothyroidism Patient not on any home medications for this TSH 4.47 Free T4 1.25 9. History of HTN Continue home Losartan 50 mg PO daily Metoprolol 12.5 mg PO BID Hydralazine 10 mg IVP Q4H PRN 10. Anemia Hgb 10.0 transfused 1 unit PRBC pre-operatively Ferrous ulfate 325 mg PO BID Iron 24 L TIBC 267 Transferrin 183.45 L Ferritin 45.6 11. Prophylactic Measures Heparin 5000U SC Q8H SCDs contraindicated secondary to PVD and gangrene Protonix 40mg PO daily Duonebs Colace 100 mg PO BID <Job Sands - Last Filed: 11/21/16 14:49> Objective - Vital Signs/Intake and Output Vital Signs (last 24 hours): Temp Pulse Resp BP Pulse Ox 97.6 F 82 20 180/75 H 97 10/19/16 09:13 10/19/16 09:13 10/19/16 09:13 10/19/16 09:13 10/19/16 09:13 - Labs Labs: 10/19/16 07:17 10/19/16 07:17 PT 13.6 SECONDS (9.7-12.2) H 10/15/16 14:29 INR 1.2 10/15/16 14:29 APTT 32 SECONDS (21-34) 10/15/16 14:29 Attending/Attestation - Attestation I have personally seen and examined this patient.: Yes I have fully participated in the care of the patient.: Yes I have reviewed all pertinent clinical information, including history, physical exam and plan: Yes Notes (Text): Patient seen and examined with the resident. Agree with the resident's evaluation, assessment and plan. Patient is POD#1 s/p TMA of L foot not Right foot.
[2016-10-18] MEDS: DAPTOmycin 600 MG in Sodium Chloride 0.9% 100 ML IV SCH (17:35)
--- NOTE | 2016-10-18 18:11 | CP.PCM.PN ---
Subjective - Date & Time of Evaluation Date of Evaluation: 10/18/16 Time of Evaluation: 02:00 - Subjective Subjective: dictated Objective - Vital Signs/Intake and Output Vital Signs (last 24 hours): Temp Pulse Resp BP Pulse Ox 98 F 73 20 128/66 97 10/18/16 16:00 10/18/16 16:00 10/18/16 16:00 10/18/16 16:00 10/18/16 16:00 Intake and Output: 10/18/16 10/18/16 06:59 18:59 Intake Total 150 770 Output Total 400 Balance 150 370 - Medications Medications: Current Medications Albuterol/Ipratropium (Duoneb 3 Mg/0.5 Mg (3 Ml) Ud) 3 ml INH RQ6 [facility] Last Admin: 10/18/16 13:23 Dose: Not Given Aspirin (Aspirin Chewable) 81 mg PO DAILY [facility] Last Admin: 10/15/16 11:00 Dose: 81 mg Clopidogrel Bisulfate (Plavix) 75 mg PO DAILY [facility] Last Admin: 10/15/16 11:00 Dose: 75 mg Docusate Sodium (Colace) 100 mg PO BID [facility] Last Admin: 10/18/16 17:34 Dose: 100 mg Ferrous Sulfate (Feosol Liq) 300 mg PO BID [facility] Last Admin: 10/18/16 17:34 Dose: 300 mg Guaifenesin (Mucinex La) 600 mg PO BID [facility] Last Admin: 10/18/16 17:34 Dose: 600 mg Hydralazine HCl (Apresoline) 10 mg IVP Q4H PRN PRN Reason: Systolic Blood Pressure Last Admin: 10/17/16 22:29 Dose: 10 mg Piperacillin Sod/Tazobactam Sod (Zosyn 2.25 Gm Iv Premix) 50 mls @ 200 mls/hr IVPB Q8H [facility] Last Admin: 10/18/16 14:19 Dose: 200 mls/hr Insulin Glargine (Lantus) 5 unit SC DAILY [facility] Last Admin: 10/18/16 10:01 Dose: 5 u Insulin Human Regular (Novolin R) 0 unit SC ACHS [facility] PRN Reason: Protocol Last Admin: 10/18/16 17:30 Dose: 3 unit Lorazepam (Ativan) 1 mg IVP Q6H PRN PRN Reason: Anxiety Last Admin: 10/09/16 16:33 Dose: 1 mg Losartan Potassium (Cozaar) 50 mg PO DAILY [facility] Last Admin: 10/18/16 09:59 Dose: 50 mg Metoprolol Tartrate (Lopressor) 12.5 mg PO BID [facility] Last Admin: 10/18/16 17:34 Dose: 12.5 mg Pantoprazole Sodium (Protonix Ec Tab) 40 mg PO DAILY [facility] Last Admin: 10/18/16 09:59 Dose: 40 mg Tramadol HCl (Ultram) 25 mg PO TID PRN PRN Reason: Pain, moderate (4-7) - Labs Labs: 10/18/16 07:34 10/18/16 07:34 PT 13.6 SECONDS (9.7-12.2) H 10/15/16 14:29 INR 1.2 10/15/16 14:29 APTT 32 SECONDS (21-34) 10/15/16 14:29
--- NOTE | 2016-10-18 18:39 | PN ---
DATE: 10/18/2016 The patient underwent a TMA yesterday. He is arousable. His son is at the bedside. He offers no ne w complaints. PHYSICAL EXAMINATION: VITAL SIGNS: T-max is 98, pulse 73, blood pressure 128/66, respirations are 20. HEENT: Head is atraumatic, normocephalic. NECK: Supple. LUNGS: Clear. No crackles or rales present. HEART: S1, S2 is regular. ABDOMEN: Soft, nontender, no guarding, no rigidity present. EXTREMITIES: Left foot has an OR dressing at this time. Right foot is unremarkable. LABORATORIES: Noted, show white count is 12.9, hemoglobin 10, hematocrit 32.2, platelet count is 264 and neutrophils are 91. Sodium is 133, potassium 4.6, chloride is 102, CO2 is 19, anion gap is 17, BUN is 20, creatinine is 1.3. He always has a creatinine high and he is diabetic and he had a transmetatarsal amputation for gangre ne of the toes and I am told that he may go to rehab tomorrow. If he goes to rehab, he is on Cubicin , would get Cubicin for 10 days and Zosyn for 5 more days if possible so that he has proper wound hea ling. He is status post transmetatarsal amputation with peripheral vascular disease, renal failure a s well as diabetes and anemia. Jarrod Hauser MD cc: [id number] TT: 10/18/2016 18:39:15 Confirmation # [id number] Dictation # [id number] en
[2016-10-19] MEDS: Albuterol-Ipratrop 3 mg / 0.5 (3 ml) UD INH SCH ×4 (01:22→13:35)
[2016-10-19] MEDS: Piperacill/Tazo 2.25gm in Dex 50 ML IVPB SCH ×2 (06:37→14:13)
[2016-10-19 07:38] LABS: CHLORIDE 101 mmol/L (98-107)
[2016-10-19 07:39] LABS: POTASSIUM 4.5 mmol/L (3.6-5.2); SODIUM 133 mmol/L (132-148)
[2016-10-19 07:41] LABS: ALB/GLOB RATIO 0.8 (1.0-2.1); ALKALINE PHOSPHATASE 124 U/L (38-126); ALT/SGPT 62 U/L (21-72); AST/SGOT 74 U/L (17-59); BASO # 0.1 K/uL (0.0-0.2); BASO % 0.5 % (0.0-2.0); BILIRUBIN,TOTAL 0.4 mg/dL (0.2-1.3); BLOOD UREA NITROGEN 19 mg/dL (9-20); CARBON DIOXIDE 21 mmol/L (22-30); EOS % 0.4 % (0.0-4.0); GFR AFRICAN-AMERICAN > 60; HEMATOCRIT 30.7 % (35.0-51.0); LYMPH # 1.7 K/uL (1.0-4.3); LYMPH % 13.5 % (20.0-40.0); MEAN CELL VOLUME 72.1 fL (80.0-94.0); MEAN CORPUSCULAR HEMOGLOBIN 22.6 pg (27.0-31.0); MEAN CORPUSCULAR HGB CONC 31.3 g/dL (33.0-37.0); MEAN PLATELET VOLUME 8.1 fL (7.2-11.7); MONO # 1.2 K/uL (0.0-0.8); RED CELL DISTRIBUTION WIDTH 19.6 % (11.5-14.5); TOTAL PROTEIN 7.1 g/dL (6.3-8.3); WHITE BLOOD COUNT 12.2 K/uL (4.8-10.8)
[2016-10-19 07:42] LABS: CALCIUM 8.3 mg/dl (8.6-10.4); GLUCOSE,RANDOM 153 mg/dL (75-110)
--- NOTE | 2016-10-19 08:46 | CP.PCM.PN ---
Subjective - Date & Time of Evaluation Date of Evaluation: 10/19/16 Time of Evaluation: 08:00 - Subjective Subjective: s/p tma left for gangrene . bandages clean ,dry,intact.no complaints today. Objective - Vital Signs/Intake and Output Vital Signs (last 24 hours): Temp Pulse Resp BP Pulse Ox 98.5 F 74 20 139/61 97 10/18/16 23:00 10/18/16 23:00 10/18/16 23:00 10/18/16 23:00 10/18/16 23:00 Intake and Output: 10/19/16 10/19/16 06:59 18:59 Intake Total 990 Output Total 200 Balance 790 - Medications Medications: Current Medications Albuterol/Ipratropium (Duoneb 3 Mg/0.5 Mg (3 Ml) Ud) 3 ml INH RQ6 [facility] Last Admin: 10/19/16 07:35 Dose: 3 ml Aspirin (Aspirin Chewable) 81 mg PO DAILY [facility] Last Admin: 10/15/16 11:00 Dose: 81 mg Clopidogrel Bisulfate (Plavix) 75 mg PO DAILY [facility] Last Admin: 10/15/16 11:00 Dose: 75 mg Docusate Sodium (Colace) 100 mg PO BID [facility] Last Admin: 10/18/16 21:30 Dose: 100 mg Ferrous Sulfate (Feosol Liq) 300 mg PO BID [facility] Last Admin: 10/18/16 17:34 Dose: 300 mg Guaifenesin (Mucinex La) 600 mg PO BID [facility] Last Admin: 10/18/16 17:34 Dose: 600 mg Hydralazine HCl (Apresoline) 10 mg IVP Q4H PRN PRN Reason: Systolic Blood Pressure Last Admin: 10/17/16 22:29 Dose: 10 mg Piperacillin Sod/Tazobactam Sod (Zosyn 2.25 Gm Iv Premix) 50 mls @ 200 mls/hr IVPB Q8H [facility] 234 [facility] Last Admin: 10/19/16 06:37 Dose: 200 mls/hr Insulin Glargine (Lantus) 5 unit SC DAILY [facility] Last Admin: 10/18/16 10:01 Dose: 5 u Insulin Human Regular (Novolin R) 0 unit SC ACHS [facility] 234 [facility] PRN Reason: Protocol Last Admin: 10/18/16 22:29 Dose: Not Given Lorazepam (Ativan) 1 mg IVP Q6H PRN PRN Reason: Anxiety Last Admin: 10/09/16 16:33 Dose: 1 mg Losartan Potassium (Cozaar) 50 mg PO DAILY [facility] Last Admin: 10/18/16 09:59 Dose: 50 mg Metoprolol Tartrate (Lopressor) 12.5 mg PO BID [facility] Last Admin: 10/18/16 17:34 Dose: 12.5 mg Pantoprazole Sodium (Protonix Ec Tab) 40 mg PO DAILY [facility] Last Admin: 10/18/16 09:59 Dose: 40 mg Tramadol HCl (Ultram) 25 mg PO TID PRN PRN Reason: Pain, moderate (4-7) Last Admin: 10/18/16 21:20 Dose: 25 mg - Labs Labs: 10/19/16 07:17 10/19/16 07:17 PT 13.6 SECONDS (9.7-12.2) H 10/15/16 14:29 INR 1.2 10/15/16 14:29 APTT 32 SECONDS (21-34) 10/15/16 14:29 - Extremities Exam Additional comments: O/TMA site incision intact with vascular status intact to flap . Maceration resolved at met 4 area incision line . No sign of infection noted noted . Assessment and Plan - Assessment and Plan (Free Text) Assessment: A/S/P TMA left Plan: P/apply Xeroform dry dressing left.
[2016-10-19] MEDS: (Novolin R) Insulin Human Regular 100 units/ml vial SC SCH ×2 (08:53→12:28)
[2016-10-19 09:14] VITALS: BP 180/75; PULSE 82; TEMP 97.6
[2016-10-19] MEDS: (Lantus) Insulin Glargine, Recombinant SC SCH (09:39)
[2016-10-19] MEDS: Ferrous Sulfate 300 mg/5 mL Liq UD PO SCH (09:39)
[2016-10-19] MEDS: guaiFENesin 600 mg ER Tab PO SCH (09:40)
[2016-10-19] MEDS: Pantoprazole 40 mg EC Tab PO SCH (09:40)
--- NOTE | 2016-10-19 13:16 | CP.PCM.DIS ---
<JaviermitulDanny trammell - Last Filed: 12/11/16 15:30> Provider - Provider Date of Admission: 10/07/16 15:07 Attending physician: Brian Kat DO Consults: Podiatry: Lucila Vascular: Stephanie Nephrology: David ID: [id number] Cardio: Bronson Time Spent in preparation of Discharge (in minutes): 40 Diagnosis - Discharge Diagnosis (1) Gangrene of toe of left foot Status: Acute (2) Anemia Status: Acute (3) CHF (congestive heart failure), NYHA class I Status: Acute (4) Diabetic ulcer of toe of left foot Status: Acute (5) Coronary artery disease Status: Chronic (6) Diabetes mellitus Status: Chronic Priority: Medium (7) Hypercholesteremia Status: Chronic (8) Hypertension Status: Chronic Priority: Low (9) Acute on chronic renal insufficiency Status: Acute Hospital Course - Lab Results Lab Results: Micro Results 10/07/16 Unknown Urine Urine Culture - Final No Growth (<1,000 CFU/ML) Most Recent Lab Values WBC 12.2 K/uL (4.8-10.8) H 10/19/16 07:17 RBC 4.25 Mil/uL (4.40-5.90) L 10/19/16 07:17 Hgb 9.6 g/dL (12.0-18.0) L 10/19/16 07:17 Hct 30.7 % (35.0-51.0) L 10/19/16 07:17 MCV 72.1 fL (80.0-94.0) L 10/19/16 07:17 MCH 22.6 pg (27.0-31.0) L 10/19/16 07:17 MCHC 31.3 g/dL (33.0-37.0) L 10/19/16 07:17 RDW 19.6 % (11.5-14.5) H 10/19/16 07:17 Plt Count 267 K/uL (130-400) 10/19/16 07:17 MPV 8.1 fL (7.2-11.7) 10/19/16 07:17 Neut % (Auto) 75.6 % (50.0-75.0) H 10/19/16 07:17 Lymph % (Auto) 13.5 % (20.0-40.0) L 10/19/16 07:17 Eddy % (Auto) 10.0 % (0.0-10.0) 10/19/16 07: Eos % (Auto) 0.4 % (0.0-4.0) 10/19/16 07:17 Baso % (Auto) 0.5 % (0.0-2.0) 10/19/16 07:17 Neut # 9.3 K/uL (1.8-7.0) H 10/19/16 07:17 Lymph # 1.7 K/uL (1.0-4.3) 10/19/16 07:17 Eddy # 1.2 K/uL (0.0-0.8) H 10/19/16 07: Eos # 0.0 K/uL (0.0-0.7) 10/19/16 07: Baso # 0.1 K/uL (0.0-0.2) 10/19/16 07:17 Neutrophils % (Manual) 91 % (50-75) H 10/18/16 07:34 Band Neutrophils % 1 % (0-2) 10/18/16 07:34 Lymphocytes % (Manual) 4 % (20-40) L 10/18/16 07:34 Monocytes % (Manual) 4 % (0-10) 10/18/16 07:34 Platelet Estimate Normal (NORMAL) 10/18/16 07:34 Hypochromasia (manual) Slight 10/18/16 07:34 Anisocytosis (manual) Moderate 10/18/16 07:34 Ovalocytes Slight 10/18/16 07:34 Debi Cells Slight 10/18/16 07:34 PT 13.6 SECONDS (9.7-12.2) H 10/15/16 14:29 INR 1.2 10/15/16 14:29 APTT 32 SECONDS (21-34) 10/15/16 14:29 Sodium 133 mmol/L (132-148) 10/19/16 07:17 Potassium 4.5 mmol/L (3.6-5.2) 10/19/16 07:17 Chloride 101 mmol/L (98-107) 10/19/16 07:17 Carbon Dioxide 21 mmol/L (22-30) L 10/19/16 07:17 Anion Gap 16 (10-20) 10/19/16 07:17 BUN 19 mg/dL (9-20) 10/19/16 07:17 Creatinine 1.3 MG/DL (0.8-1.5) 10/19/16 07:17 Est GFR ( Amer) > 60 10/19/16 07:17 Est GFR (Non-Af Amer) 53 10/19/16 07:17 POC Glucose (mg/dL) 201 mg/dL (65-110) H 10/19/16 12:24 Random Glucose 153 mg/dL (75-110) H 10/19/16 07:17 Hemoglobin A1c 10.0 % (4.2-6.5) H 10/08/16 07:10 Calcium 8.3 mg/dl (8.6-10.4) L 10/19/16 07:17 Phosphorus 3.1 mg/dL (2.5-4.5) 10/16/16 07:34 Magnesium 2.2 mg/dL (1.6-2.3) 10/16/16 07:34 Iron 24 ug/dL (49-181) L 10/15/16 14:29 TIBC 267 ug/dL (250-450) 10/15/16 14:29 % Saturation 8 (20-55) L 10/15/16 14:29 Transferrin 183.45 mg/dL (206-381) L 10/15/16 14:29 Ferritin 45.6 ng/mL 10/15/16 14:29 Total Bilirubin 0.4 mg/dL (0.2-1.3) 10/19/16 07:17 AST 74 U/L (17-59) H D 10/19/16 07:17 ALT 62 U/L (21-72) 10/19/16 07:17 Alkaline Phosphatase 124 U/L (38-126) 10/19/16 07:17 Troponin I 0.0670 ng/mL (0.00-0.120) 10/07/16 13:59 NT-Pro-B Natriuret Pep 490 pg/mL (0-900) 10/07/16 13:59 Total Protein 7.1 g/dL (6.3-8.3) 10/19/16 07:17 Albumin 3.2 g/dL (3.5-5.0) L 10/19/16 07:17 Globulin 3.9 gm/dL (2.2-3.9) 10/19/16 07:17 Albumin/Globulin Ratio 0.8 (1.0-2.1) L 10/19/16 07:17 Vitamin B12 498 pg/mL (239-931) 10/15/16 14:29 Folate 9.6 ng/mL 10/15/16 14:29 Free T4 1.25 ng/dL (0.78-2.19) 10/08/16 07:10 TSH 3rd Generation 4.47 mIU/L (0.46-4.68) 10/08/16 07:10 Urine Color Yellow (YELLOW) 10/07/16 15:57 Urine Clarity Clear (Clear) 10/07/16 15:57 Urine pH 6.0 (5.0-8.0) 10/07/16 15:57 Ur Specific [place] 1.011 (1.003-1.030) 10/07/16 15:57 Urine Protein Negative mg/dL (NEGATIVE) 10/07/16 15:57 Urine Glucose (UA) 1+ mg/dL (Normal) H 10/07/16 15:57 Urine Ketones Negative mg/dL (NEGATIVE) 10/07/16 15:57 Urine Blood Negative (NEGATIVE) 10/07/16 15:57 Urine Nitrate Negative (NEGATIVE) 10/07/16 15:57 Urine Bilirubin Negative (NEGATIVE) 10/07/16 15:57 Urine Urobilinogen Normal mg/dL (0.2-1.0) 10/07/16 15:57 Ur Leukocyte Esterase Neg Jcarlos/uL (Negative) 10/07/16 15:57 Urine WBC (Auto) 11 /hpf (0-5) H 10/07/16 15:57 Urine RBC (Auto) < 1 /hpf (0-3) 10/07/16 15:57 Ur Squamous Epith Cells < 1 /hpf (0-5) 10/07/16 15:57 Urine Bacteria Rare (<OCC) 10/07/16 15:57 Random Vancomycin 7.05 ug/mL 10/08/16 07:10 Blood Type B POSITIVE 10/16/16 19:00 Antibody Screen Negative 10/16/16 19:00 - Hospital Course Hospital Course: Patient is an 81 year old man with PMHx of arthritis, CAD, CHF, DMII, HTN, hyperlipidemia and hypothyroidism presenting for change in color of 4th left toe. Patient says he noticed the change in color and swelling 7-8 days ago. Patient has not seen his PMD for this or put any type of cream on it. Patient does not have any pain at the toe when it is not being touched. Patient reports being able to walk with his walker which is what he usually uses. Patient denies this ever happening before. Patient denies fever, chills, weight change, headache, vision change, chest pain, palpitations, SOB, cough, abdominal pain, nausea, vomiting, diarrhea, constipation, dysuria, rash, back pain and easy bleeding. Patient was admitted for left foot gangrene. Patient endured a prolonged hospital course from 10/07 - 10/19. Left foot x ray results showed mild hallux deformity with degenerative changes. Diffuse osteopenia. Productive changes of 3rd and 4th metatarsal, dorsal aspect of midfoot, and level medial mallelolus ( see full report). Angiogram demonstrated aortofemoral angiogram via right groin , selective angiogram left femoral artery. pathway atherectomy. 40% proximal sfa occlusion and 100% mid and distal sfa occlusion (see full report). Arterial doppler showed the followin.) Occluded left posterior tibial artery. No flow detected throughout the vessel. 2.) Continuous monophasic waveforms, beginning at left superficial femoral artery level. Calcific plaques notted throughout bilateral lower extremities. Slightly increased velocities due to vessel narrowing. No evidence of arterial occlusions of bilateral extremity arteries above the knee. (see full report). Patient was on IV antibiotcs throughout the entire stay. 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 Patient was dischagred to [facility] on 10/19. Patient had PICC briseyda placed before discharge. Patient continued Daptomycin for 10 days and Zosyn for 5 days. He was to follow up with Podiatry as outpatient. (This is a summary of the hospital course. Please refer to EMR for more specific details.) Discharge Exam - Head Exam Head Exam: ATRAUMATIC, NORMOCEPHALIC - Eye Exam Eye Exam: EOMI, Normal appearance Pupil Exam: PERRL - ENT Exam ENT Exam: Mucous Membranes Moist - Neck Exam Neck exam: Normal Inspection - Respiratory Exam Respiratory Exam: Clear to PA & Lateral, NORMAL BREATHING PATTERN - Cardiovascular Exam Cardiovascular Exam: REGULAR RHYTHM, +S1, +S2 - GI/Abdominal Exam GI & Abdominal Exam: Normal Bowel Sounds, Soft. absent: Tenderness - Extremities Exam Additional comments: bandage clean dry intact on left foot - Back Exam Back exam: absent: CVA tenderness (L), CVA tenderness (R) - Neurological Exam Neurological exam: Alert, CN II-XII Intact, Oriented x3 - Psychiatric Exam Psychiatric exam: Normal Affect, Normal Mood - Skin Skin Exam: Dry, Warm Discharge Plan - Discharge Medications Prescriptions: Piperacillin/Tazobact [Zosyn 3 Gm-0.375 Gm] 3.375 gm IV Q6 #120 vial - Follow Up Plan Condition: STABLE Disposition: REHAB FACILITY/REHAB UNIT Instructions: Heart Failure (DC), Heart Healthy Diet (DC), Transmetatarsal Amputation (DC), Leukocytosis (DC) Additional Instructions: Patient medically stable for discharge to [facility] by Dr. Garcia after PICC line is placed. Patient is to medications as per medication reconciliation. Patient is to contine Daptomycin for 10 days and Zosyn for 5 days. Patient is to follow up with PMD, Vascular Surgery, and Podiatry within 1 week of discharge. Patient may resume physical activity as tolerated. Please return to ED if symptoms persist or condition worsens. All instructions stated above were discussed with patient in detail. He verbalized understanding and agreement. Referrals: Elver Brown Jr., MD [Staff Provider] - Chilango Gaytan DPM [Staff Provider] - <Job Sands - Last Filed: 12/12/16 11:50> Provider - Provider Date of Admission: 10/07/16 15:07 Attending physician: Brian Kat DO Hospital Course - Lab Results Lab Results: Micro Results 10/07/16 Unknown Urine Urine Culture - Final No Growth (<1,000 CFU/ML) Most Recent Lab Values WBC 12.2 K/uL (4.8-10.8) H 10/19/16 07:17 RBC 4.25 Mil/uL (4.40-5.90) L 10/19/16 07:17 Hgb 9.6 g/dL (12.0-18.0) L 10/19/16 07:17 Hct 30.7 % (35.0-51.0) L 10/19/16 07: MCV 72.1 fL (80.0-94.0) L 10/19/16 07: MCH 22.6 pg (27.0-31.0) L 10/19/16 07: MCHC 31.3 g/dL (33.0-37.0) L 10/19/16 07: RDW 19.6 % (11.5-14.5) H 10/19/16 07:17 Plt Count 267 K/uL (130-400) 10/19/16 07:17 MPV 8.1 fL (7.2-11.7) 10/19/16 07:17 Neut % (Auto) 75.6 % (50.0-75.0) H 10/19/16 07:17 Lymph % (Auto) 13.5 % (20.0-40.0) L 10/19/16 07:17 Eddy % (Auto) 10.0 % (0.0-10.0) 10/19/16 07:17 Eos % (Auto) 0.4 % (0.0-4.0) 10/19/16 07:17 Baso % (Auto) 0.5 % (0.0-2.0) 10/19/16 07:17 Neut # 9.3 K/uL (1.8-7.0) H 10/19/16 07:17 Lymph # 1.7 K/uL (1.0-4.3) 10/19/16 07:17 Eddy # 1.2 K/uL (0.0-0.8) H 10/19/16 07:17 Eos # 0.0 K/uL (0.0-0.7) 10/19/16 07:17 Baso # 0.1 K/uL (0.0-0.2) 10/19/16 07:17 Neutrophils % (Manual) 91 % (50-75) H 10/18/16 07:34 Band Neutrophils % 1 % (0-2) 10/18/16 07:34 Lymphocytes % (Manual) 4 % (20-40) L 10/18/16 07:34 Monocytes % (Manual) 4 % (0-10) 10/18/16 07:34 Platelet Estimate Normal (NORMAL) 10/18/16 07:34 Hypochromasia (manual) Slight 10/18/16 07:34 Anisocytosis (manual) Moderate 10/18/16 07:34 Ovalocytes Slight 10/18/16 07:34 Debi Cells Slight 10/18/16 07:34 PT 13.6 SECONDS (9.7-12.2) H 10/15/16 14:29 INR 1.2 10/15/16 14:29 APTT 32 SECONDS (21-34) 10/15/16 14:29 Sodium 133 mmol/L (132-148) 10/19/16 07:17 Potassium 4.5 mmol/L (3.6-5.2) 10/19/16 07:17 Chloride 101 mmol/L (98-107) 10/19/16 07:17 Carbon Dioxide 21 mmol/L (22-30) L 10/19/16 07:17 Anion Gap 16 (10-20) 10/19/16 07:17 BUN 19 mg/dL (9-20) 10/19/16 07:17 Creatinine 1.3 MG/DL (0.8-1.5) 10/19/16 07:17 Est GFR ( Amer) > 60 10/19/16 07:17 Est GFR (Non-Af Amer) 53 10/19/16 07:17 POC Glucose (mg/dL) 201 mg/dL (65-110) H 10/19/16 12:24 Random Glucose 153 mg/dL (75-110) H 10/19/16 07:17 Hemoglobin A1c 10.0 % (4.2-6.5) H 10/08/16 07:10 Calcium 8.3 mg/dl (8.6-10.4) L 10/19/16 07:17 Phosphorus 3.1 mg/dL (2.5-4.5) 10/16/16 07:34 Magnesium 2.2 mg/dL (1.6-2.3) 10/16/16 07:34 Iron 24 ug/dL (49-181) L 10/15/16 14:29 TIBC 267 ug/dL (250-450) 10/15/16 14:29 % Saturation 8 (20-55) L 10/15/16 14:29 Transferrin 183.45 mg/dL (206-381) L 10/15/16 14:29 Ferritin 45.6 ng/mL 10/15/16 14:29 Total Bilirubin 0.4 mg/dL (0.2-1.3) 10/19/16 07:17 AST 74 U/L (17-59) H D 10/19/16 07:17 ALT 62 U/L (21-72) 10/19/16 07:17 Alkaline Phosphatase 124 U/L (38-126) 10/19/16 07:17 Troponin I 0.0670 ng/mL (0.00-0.120) 10/07/16 13:59 NT-Pro-B Natriuret Pep 490 pg/mL (0-900) 10/07/16 13:59 Total Protein 7.1 g/dL (6.3-8.3) 10/19/16 07:17 Albumin 3.2 g/dL (3.5-5.0) L 10/19/16 07:17 Globulin 3.9 gm/dL (2.2-3.9) 10/19/16 07:17 Albumin/Globulin Ratio 0.8 (1.0-2.1) L 10/19/16 07:17 Vitamin B12 498 pg/mL (239-931) 10/15/16 14:29 Folate 9.6 ng/mL 10/15/16 14:29 Free T4 1.25 ng/dL (0.78-2.19) 10/08/16 07:10 TSH 3rd Generation 4.47 mIU/L (0.46-4.68) 10/08/16 07:10 Urine Color Yellow (YELLOW) 10/07/16 15:57 Urine Clarity Clear (Clear) 10/07/16 15:57 Urine pH 6.0 (5.0-8.0) 10/07/16 15:57 Ur Specific [place] 1.011 (1.003-1.030) 10/07/16 15:57 Urine Protein Negative mg/dL (NEGATIVE) 10/07/16 15:57 Urine Glucose (UA) 1+ mg/dL (Normal) H 10/07/16 15:57 Urine Ketones Negative mg/dL (NEGATIVE) 10/07/16 15:57 Urine Blood Negative (NEGATIVE) 10/07/16 15:57 Urine Nitrate Negative (NEGATIVE) 04/09/17 15:57 Urine Bilirubin Negative (NEGATIVE) 10/07/16 15:57 Urine Urobilinogen Normal mg/dL (0.2-1.0) 10/07/16 15:57 Ur Leukocyte Esterase Neg Jcarlos/uL (Negative) 10/07/16 15:57 Urine WBC (Auto) 11 /hpf (0-5) H 10/07/16 15:57 Urine RBC (Auto) < 1 /hpf (0-3) 10/07/16 15:57 Ur Squamous Epith Cells < 1 /hpf (0-5) 10/07/16 15:57 Urine Bacteria Rare (<OCC) 10/07/16 15:57 Random Vancomycin 7.05 ug/mL 10/08/16 07:10 Blood Type B POSITIVE 10/16/16 19:00 Antibody Screen Negative 10/16/16 19:00 Attending/Attestation - Attestation I have personally seen and examined this patient.: Yes I have fully participated in the care of the patient.: Yes I have reviewed all pertinent clinical information, including history, physical exam and plan: Yes Notes (Text): Patient Seen and examined with the resident. Agree with the resident's evaluation, assessment and plan. Patient was admitted for left foot gangrene. Patient endured a prolonged hospital course from 10/07 - 10/19. Left foot x ray results showed mild hallux deformity with degenerative changes. Diffuse osteopenia. Productive changes of 3rd and 4th metatarsal, dorsal aspect of midfoot, and level medial mallelolus (see full report). Angiogram demonstrated aortofemoral angiogram via right groin, selective angiogram left femoral artery. pathway atherectomy. 40% proximal sfa occlusion and 100% mid and distal sfa occlusion (see full report). Arterial doppler showed the followin.) Occluded left posterior tibial artery. No flow detected throughout the vessel. 2.) Continuous monophasic waveforms, beginning at left superficial femoral artery level. Calcific plaques notted throughout bilateral lower extremities. Slightly increased velocities due to vessel narrowing. No evidence of arterial occlusions of bilateral extremity arteries above the knee. (see full report). Patient was on IV antibiotcs throughout the entire stay. 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 Patient was dischagred to [facility] on 10/19. Patient had PICC briseyda placed before discharge. Patient continued Daptomycin for 10 days and Zosyn for 5 days. He was to follow up with Podiatry as outpatient.
--- NOTE | 2016-10-19 13:39 | PCM.SURG1 ---
Surgeon's Initial Post Op Note - Surgeon's Notes Surgeon: Mg Junior MD Retail Representative: NONE Type of Anesthesia: Local Pre-Operative Diagnosis: Foot ulcer Operative Findings: Patent right basilic vein. Post-Operative Diagnosis: Foot ulcer Operation Performed: Right basilic vein single lumen picc placement, 37 cm. Tip in SVC. Specimen/Specimens Removed: none Estimated Blood Loss: EBL {In ML}: 2 Blood Products Given: N/A Drains Used: No Drains Post-Op Condition: Fair Date of Surgery/Procedure: 10/19/16 Time of Surgery/Procedure: 13:30
--- NOTE | 2016-10-19 15:45 | RAD ---
PROCEDURE: Date of procedure: 10/19/2016 Procedure: 1. Placement of a right arm PICC with ultrasound and fluoroscopic guidance, CPT 83427 2. PICC tip confirmation with spot radiograph and is in the superior vena cava Medications: 1 percent lidocaine Total Fluoro time: 10.7 seconds Radiation: 0.05 mGym2 EBL: 2 cc HISTORY: Bacteremia requiring long-term IV antibiotics TECHNIQUE: Following informed consent and procedure time-out, the patient was placed supine on the interventional table and the right arm prepped and draped in the usual sterile fashion. Ultrasound showed a patent and compressible right basilic vein. After the skin was anesthetized with lidocaine, the basilic vein was accessed with micro micropuncture technique using ultrasound guidance. A guidewire was then advanced under fluoroscopic guidance into the superior vena cava. An image documenting ultrasound guidance for vascular access was permanently saved. The length of the single-lumen 4 Hungarian PICC was trimmed to 37 centimeters and advanced through a peel-away sheath. The PICC was position with tip of PICC confirm a spot radiograph the superior vena cava. The PICC was secured to the patient's skin. The PICC was flushed. A biopatch and sterile dressing was applied. IMPRESSION: Placement of a single-lumen 4 Hungarian PICC trimmed to 37 centimeters via right basilic vein. The tip of the PICC is confirmed with spot radiograph and is in the superior vena cava.
--- NOTE | 2016-10-19 16:27 | PCM.HF ---
Heart Failure Core Measure - Heart Failure Ejection Fraction: 40 % or Greater AUDIE Inhibitor Prescribed: No Contraindication/Reason for not providing: ON AUDIE Beta-Malaika Prescribed: Metoprolol Succinate Angiotensin II Receptor Malaika Prescribed: Yes AnticoagulationTherapy for Atrial Fibrillation/Atrialflutter: No Contraindication/Reason for not providing: NO AFIB Aldosterone Antagonist Prescribed: No Contraindication/Reason for not providing: LVEF >40% Hydralazine Nitrate Prescribed: No Contraindication/Reason for not providing: LVEF >40% Implantable Cardioverter Defibrillator Therapy: No Contraindication/Reason for not providing: LVEF >40% Cardiac Resynchronization Therapy Prescribed: No Contraindication/Reason for not providing: LVEF >40% - Follow up [facility] Follow Up Date (must be within 7 days from discharge): 10/22/16 Follow Up Time: 09:00
--- NOTE | 2016-10-22 10:07 | US ---
PROCEDURE: Date of procedure: 10/19/2016 Procedure: 1. Ultrasound guidance vascular access for PICC placement 2. PICC tip confirmation with spot radiograph and is in the superior vena cava Medications: 4 cc 1 percent lidocaine HISTORY: Bacteremia requiring long-term IV antibiotics TECHNIQUE: Ultrasound guidance for vascular access. Following informed consent and procedure time-out, the patient was placed supine on the interventional table and the right arm prepped and draped in the usual sterile fashion. Ultrasound showed a patent and compressible right basilic vein. After the skin was anesthetized with lidocaine, the basilic vein was accessed with micro micropuncture technique using ultrasound guidance. A guidewire was then advanced under fluoroscopic guidance into the superior vena cava. An image documenting ultrasound guidance for vascular access was permanently saved. The length of the single-lumen 4 Iranian PICC was trimmed to 37 centimeters and advanced through a peel-away sheath. The PICC was position with tip of PICC confirm a spot radiograph the superior vena cava. The PICC was secured to the patient's skin. The PICC was flushed. A biopatch and sterile dressing was applied. IMPRESSION: Placement of a single-lumen 4 Iranian PICC trimmed to 37 centimeters via right basilic vein. The tip of the PICC is confirmed with spot radiograph and is in the superior vena cava.
--- NOTE | 2016-11-02 13:54 | OP ---
PROCEDURE DATE: 10/17/2016 SURGEON: Dr. Chilango Gaytan DPM VP GLOBAL: Dayne Duvall DPM, PGY-1. ANESTHESIOLOGIST: Dr. Simms. ANESTHESIA: IV sedation with local. PREOPERATIVE DIAGNOSIS: Left foot gangrene. POSTOPERATIVE DIAGNOSIS: Left foot gangrene. PROCEDURE PERFORMED: Left foot transmetatarsal amputation. INDICATIONS: The patient is an 81-year-old male with the above diagnosis. The patient has exhausted all conservative treatment at this time and now requires surgical intervention. The patient signed the consent after careful explanation of risks, benefits, complication and alternative for surgical procedure. No guarantees were given nor implied. N.p.o. status was confirmed prior to taking patient to the OR. PREPARATION: The patient was brought into the operating room and placed on the operating room table in supine position. Timeout was performed for correct identification of patient and procedure. After induction of IV sedation, the patient received a local block with a total of 20 mL of a 1:1 solution of 1% lidocaine plain and 0.25% Marcaine plain to the left foot. The lower extremity was then prepped and draped in a normal sterile manner and the procedure began. No tourniquet was used during the procedure. PROCEDURE: Attention was directed to the distal aspect of the left foot with the use of a #15 blade to create an approximately 5 cm linear longitudinal incision around the medial aspect of the first metatarsal straight down to bone. The incision was carried out circumferentially around the hallux. The tissue was freed from the metatarsophalangeal joint using a #15 blade. The hallux was disarticulated from the metatarsal and excised using a #15 blade, crown and collar scissors, and a Debbie clamp and sent for pathology. At this time, all the soft tissue was freed from the distal aspect of the metatarsal head and the periosteum was freed using a periosteal elevator. A sagittal saw was then used to resect the first metatarsal head. All devitalized bone and tissue was then passed off the field and sent for pathology. Next, using a #15 blade, a circumferential incision was made surrounding the distal aspect of metatarsals 2 through 5 straight down to bone leaving more tissue plantarly then dorsally exposing all metatarsal heads. Each digit was then disarticulated from metatarsophalangeal joint using a #15 blade and forceps. All devitalized bone and tissue was then passed off the field and sent for pathology. At this time, all the soft tissue was freed from the distal aspect of the metatarsal head and the periosteum was freed using a periosteal elevator. A sagittal saw was then used to resect the metatarsal heads 2 through 5. All devitalized bone and tissue was then passed off the field and sent for pathology. The remaining sharp bone was then debrided down to smoothness using a bone rasp. The site was then irrigated with copious amounts of normal sterile saline. Then Versajet was used, on power level 5, the soft tissue flaps and the tissue was non-excisionally debrided of all fibrotic and nonviable tissue until fresh healthy bleeding granular tissue appeared, then irrigated with copious amounts of normal sterile saline. The plantar tissue was then brought up dorsally to cover the distal aspect of the metatarsals. The subcutaneous tissue was then reapproximated using #3-0 Vicryl and the skin was reapproximated using 3-0 nylon in a simple suture pattern. Left foot was then dressed with Xeroform, sterile gauze, Kerlix, and then Coban. Patients prognosis is poor. POSTOPERATIVE CONDITION: The patient tolerated the anesthesia and procedure well and was escorted to the recovery room with vital signs stable and neurovascular status intact to the left lower extremity. The patient is to remain nonweightbearing to the left lower extremity. Podiatry will continue to follow patient while in-house. The patient will follow up with Dr. Gaytan upon discharge. DAYNE DUVALL DPM Chilango Gaytan DPM cc: [id number] TT: 11/02/2016 13:54:09 jn MTDD
--- NOTE | 2016-12-10 14:44 | CARD ---
APPROVED REPORT EKG Measurement Heart [id number] <Conclusion> Poor data quality, interpretation may be adversely affected Normal sinus rhythm Biatrial enlargement Left ventricular hypertrophy Inferior infarct, age undetermined Abnormal ECG
== END 2016-10-19 16:15 | DRG 271 ==
LOC: C.ER 13:01 → C.9E 15:07 → C.5T 16:29 → C.3T 10-09 14:54 → C.5T 10-15 14:59 → C.3T 10-15 17:08 → C.5T 10-15 19:20 → C.6T 10-17 18:38
PROVIDERS: ADMIT Hospitalist; ATTEND Hospitalist
PROC: 04CL3ZZ Extirpation of Matter from Left Femoral Artery, Percutaneous Approach (ICD-10-PCS; 2016-10-12)
PROC: 047L35Z Dilation of Left Femoral Artery with Two Drug-eluting Intraluminal Devices, Percutaneous Approach (ICD-10-PCS; principal; 2016-10-12 11:30)
PROC: 0Y6N0ZC Detachment at Left Foot, Partial 3rd Ray, Open Approach (ICD-10-PCS; 2016-10-17)
PROC: 0Y6N0ZD Detachment at Left Foot, Partial 4th Ray, Open Approach (ICD-10-PCS; 2016-10-17)
PROC: 02HV33Z Insertion of Infusion Device into Superior Vena Cava, Percutaneous Approach (ICD-10-PCS; 2016-10-19)
PROC: B548ZZA Ultrasonography of Superior Vena Cava, Guidance (ICD-10-PCS; 2016-10-19)
DX: E11.52 Type 2 diabetes mellitus with diabetic peripheral angiopathy with gangrene (principal); I70.262 Atherosclerosis of native arteries of extremities with gangrene, left leg; N17.9 Acute kidney failure, unspecified; E11.21 Type 2 diabetes mellitus with diabetic nephropathy; E11.621 Type 2 diabetes mellitus with foot ulcer; I70.92 Chronic total occlusion of artery of the extremities; R78.81 Bacteremia; I13.0 Hypertensive heart and chronic kidney disease with heart failure and stage 1 through stage 4 chronic kidney disease, or unspecified chronic kidney disease; I50.9 Heart failure, unspecified; L97.509 Non-pressure chronic ulcer of other part of unspecified foot with unspecified severity; E11.22 Type 2 diabetes mellitus with diabetic chronic kidney disease; I25.10 Atherosclerotic heart disease of native coronary artery without angina pectoris; E78.00 Pure hypercholesterolemia, unspecified; E11.65 Type 2 diabetes mellitus with hyperglycemia; F17.210 Nicotine dependence, cigarettes, uncomplicated; N18.3 Chronic kidney disease, stage 3 (moderate); E03.9 Hypothyroidism, unspecified; E78.5 Hyperlipidemia, unspecified; D72.829 Elevated white blood cell count, unspecified; M85.80 Other specified disorders of bone density and structure, unspecified site; Z79.02 Long term (current) use of antithrombotics/antiplatelets; Z79.899 Other long term (current) drug therapy; Z79.82 Long term (current) use of aspirin; Z86.73 Personal history of transient ischemic attack (TIA), and cerebral infarction without residual deficits

== ENCOUNTER 2016-12-11 18:03 | Inpatient (IN) | payer MEDICARE, MEDICAID ==
[2016-12-11 18:18] VITALS: BMI 33.4
[2016-12-11 20:02] LABS: BASO # 0.1 K/uL (0.0-0.2); BASO % 1.1 % (0.0-2.0); EOS # 0.5 K/uL (0.0-0.7); EOS % 5.1 % (0.0-4.0); HEMATOCRIT 37.7 % (35.0-51.0); LYMPH # 3.7 K/uL (1.0-4.3); LYMPH % 38.9 % (20.0-40.0); MEAN CELL VOLUME 74.1 fL (80.0-94.0); MEAN CORPUSCULAR HGB CONC 31.1 g/dL (33.0-37.0); MEAN PLATELET VOLUME 8.1 fL (7.2-11.7); MONO # 1.2 K/uL (0.0-0.8); NRBC % 0.1 % (0.0-2.0); RED CELL DISTRIBUTION WIDTH 19.7 % (11.5-14.5); WHITE BLOOD COUNT 9.6 K/uL (4.8-10.8)
[2016-12-11 20:04] LABS: POTASSIUM 4.5 mmol/L (3.6-5.2)
[2016-12-11 20:06] LABS: BILIRUBIN,TOTAL 0.8 mg/dL (0.2-1.3)
[2016-12-11 20:07] LABS: ALB/GLOB RATIO 0.9 (1.0-2.1); TOTAL PROTEIN 8.1 g/dL (6.3-8.3)
[2016-12-11 20:08] LABS: CALCIUM 9.5 mg/dl (8.6-10.4)
--- NOTE | 2016-12-11 21:23 | C.PDOC ---
History Of Present Illness Pt was sent in by his Vehicle Insurance Agent Dr. Gaytan for admission due to a nonhealing left MTA. Time Seen by Provider: 12/11/16 20:55 Chief Complaint (Nursing): Abnormal Skin Integrity History Per: Patient, Other (Doctor's note) Current Symptoms Are (Timing): Still Present Location Of Injury: Left: Foot Quality Of Symptoms: Draining Severity: Moderate Additional History Per: Prior Records Past Medical History Reviewed: Historical Data, Nursing Documentation, Vital Signs Vital Signs: Last Vital Signs Temp 98.6 F 12/11/16 18:26 Pulse 78 12/11/16 22:18 Resp 20 12/11/16 22:18 BP 134/59 L 12/11/16 22:18 Pulse Ox 97 12/11/16 22:18 - Medical History PMH: Arthritis, CAD, Diabetes, HTN, Hypercholesterolemia, Hypothyroidism Surgical History: Cholecystectomy Other Surgeries: Left Metatarsal Amputation in September 2016 - [facility] Procedures ARTHROCENTESIS (04/20/14) CENTRAL VENOUS CATHETER PLACEMENT WITH GUIDANCE (06/20/14) CYSTOSCOPY NEC (01/19/14) DETACHMENT AT LEFT FOOT, PARTIAL 3RD RAY, OPEN APPROACH (10/07/16) DETACHMENT AT LEFT FOOT, PARTIAL 4TH RAY, OPEN APPROACH (10/07/16) DILATION OF L FEM ART WITH 2 DRUG-ELUT, PERC APPROACH (10/07/16) EXTIRPATION OF MATTER FROM L FEM ART, PERC APPROACH (10/07/16) INSERTION OF ENDOTRACHEAL AIRWAY INTO TRACHEA, VIA OPENING (08/01/15) INSERTION OF INFUSION DEV INTO SUP VENA CAVA, PERC APPROACH (10/07/16) INTRAOPER CHOLANGIOGRAM (09/30/14) LAPAROSCOP LYSIS-PERITONEAL ADHES (09/30/14) LAPAROSCOPIC CHOLECYSTECTOMY (09/30/14) PERC HEPAT CHOLANGIOGRAM (04/20/14) PERCUTAN ASPIRATION GB (07/14/14) REMOV CHOLECYSTOST TUBE (06/03/14) RESPIRATORY VENTILATION, 24-96 CONSECUTIVE HOURS (08/01/15) TRANSURETHRAL PROSTATECTOMY ([place]) (01/19/14) ULTRASONOGRAPHY OF SUPERIOR VENA CAVA, GUIDANCE (10/07/16) VACCINATION NEC (11/09/14) VENOUS CATHETERIZATION NEC (08/25/14) Family History: States: Unknown Family Hx - Social History Hx Tobacco Use: Yes Hx Alcohol Use: No Hx Substance Use: No - Immunization History Hx Tetanus Toxoid Vaccination: No Hx Influenza Vaccination: No Hx Pneumococcal Vaccination: No Review Of Systems Cardiovascular: Negative for: Chest Pain Respiratory: Negative for: Shortness of Breath Gastrointestinal: Negative for: Abdominal Pain Musculoskeletal: Positive for: Foot Pain (left). Negative for: Back Pain Neurological: Negative for: Seizures Physical Exam - Physical Exam Appears: No Acute Distress, Chronically Ill Skin: Warm Head: Atraumatic Eye(s): bilateral: PERRL, EOMI Neck: Normal ROM, Supple Cardiovascular: Rhythm Regular Respiratory: Normal Breath Sounds, No Accessory Muscle Use Gastrointestinal/Abdominal: Soft, No Tenderness Extremity: Normal ROM, Deformity (Left metatarsal amputation with surgical wound nonhealing) Neurological/Psych: Oriented x3 ED Course And Treatment - Laboratory Results Result Diagrams: 12/11/16 19:52 12/11/16 19:52 O2 Sat by Pulse Oximetry: 97 Pulse Ox Interpretation: Normal - Physician Consult Information Physician Contacted: Elevr Brown Jr. Outcome Of Conversation: He will consult. Pt also d/w Dr. Gaytan. He recommended starting pt on Zosyn. Disposition Discussed With : Simeon Barajas Comment: He accepted pt on hospitalist service. Doctor Will See Patient In The: Hospital Counseled Patient/Family Regarding: Studies Performed, Diagnosis - Disposition Disposition: HOSPITALIZED Disposition Time: 22:48 Condition: FAIR - Clinical Impression Clinical Impression: Infection of metatarsal as complication of amputation, PVD (peripheral vascular disease)
[2016-12-11] MEDS ORDERED: Piperacillin/Tazobact 3.375 gm 100 ML IVPB STA (22:46)
[2016-12-11] MEDS ORDERED: Piperacillin/Tazobact 3.375 gm 100 ML IVPB ONE (23:43)
--- NOTE | 2016-12-12 02:06 | CP.PCM.HP ---
<Pennie Jones - Last Filed: 12/12/16 02:47> History of Present Illness - History of Present Illness History of Present Illness: CC: I was sent in HPI: 81 year old male PMHx of CAD, CHF, DMII, HTN, hyperlipidemia, arthritis, and hypothyroidism sent in by Dr. Gaytan for nonhealing left MTA. Patient was previously admitted 10/07-10/19 for left foot gangrene and had an angiogram that showed aortofemoral angiogram via right groin, selective angiogram left femoral artery; pathway atherectomy; 40% proximal sfa occlusion and 100% mid and distal sfa occlusion. An arterial doppler done on previous visit showed Occluded left posterior tibial artery; No flow detected throughout the vessel; Continuous monophasic waveforms, beginning at left superficial femoral artery level; Calcific plaques noted throughout bilateral lower extremities; Slightly increased velocities due to vessel narrowing; No evidence of arterial occlusions of bilateral extremity arteries above the knee. Patient was on IV antibiotics throughout the hospital course and he received a transmetatarsal amputation of the left foot on 10/18 and was discharged to [facility] on 10/19 with a PICC line for IV Abx. Patient was seen today by Dr. Gaytan for transient tarsal flap that was not healing who decided to send patient in for evaluation by vascular surgeon Dr. Brown. Patient denies any pain in his left foot and noticed some serosanguinous drainage but no purulent drainage. Patient denied any pain in the foot and states he uses a walker to walk but usually keeps his foot raised. He denied any fever, chills, diaphoresis, weakness, headache, dizziness, lightheadedness, change in vision, change in hearing, sore throat, dysphagia, chest pain, palpitations, SOB, cough, abdominal pain, nausea, vomiting, bowel/ bladder complaints, pain/swelling in his legs bilaterally, back pain, rash, easy bruising, easy bleeding, travel, sick contacts, recent illnesses, change in weight/appetite. PMHx: CAD, CHF, DMII, HTN, hyperlipidemia, arthritis, and hypothyroidism PSHx: cholecystectomy 09/2014 ALL: NKDA Medications: denies Social Hx: former tobacco use- quit 6 months ago; used to smoke 1/2ppd for 20 years; denies EtOH and drug use. Lives in apartment with in [place] Family Hx: denies GA, CVA, cancer in family PMD: Arlethraiza ROS: Denies fever, chills, diaphoresis, weakness, headache, dizziness, lightheadedness, change in vision, change in hearing, sore throat, dysphagia, chest pain, palpitations, SOB, cough, abdominal pain, nausea, vomiting, bowel/ bladder complaints, pain/swelling in his legs bilaterally, back pain, rash, easy bruising, easy bleeding, travel, sick contacts, recent illnesses, change in weight/appetite. Present on Admission - Present on Admission Any Indicators Present on Admission: No Review of Systems - Constitutional Constitutional: As Per HPI. absent: Chills, Fever - EENT Eyes: As Per HPI. absent: Blurred Vision Ears: As Per HPI. absent: Dizziness Nose/Mouth/Throat: As Per HPI. absent: Dysphagia, Sore Throat - Cardiovascular Cardiovascular: As Per HPI. absent: Chest Pain, Dyspnea, Edema, Palpitations, Pedal Edema - Respiratory Respiratory: As Per HPI. absent: Cough, Dyspnea, Chest Congestion - Gastrointestinal Gastrointestinal: As Per HPI. absent: Abdominal Pain, Constipation, Diarrhea, Nausea, Vomiting - Genitourinary Genitourinary: As Per HPI. absent: Dysuria, Hematuria, Pyuria, Nocturia - Musculoskeletal Musculoskeletal: As Per HPI. absent: Numbness, Stiffness, Tingling - Integumentary Integumentary: As Per HPI, Non-Healing Lesions - Neurological Neurological: As Per HPI. absent: Numbness, Headaches, Tingling, Weakness - Psychiatric Psychiatric: As Per HPI. absent: Anxiety, Depression - Endocrine Endocrine: As Per HPI. absent: Palpitations, Polydipsia, Polyphagia, Polyuria - Hematologic/Lymphatic Hematologic: As Per HPI. absent: Easy Bleeding, Easy Bruising Past Patient History - Infectious Disease Hx of Infectious Diseases: None - Tetanus Immunizations Tetanus Immunization: Unknown - Past Medical History & Family History Past Medical History?: Yes - Past Social History Smoking Status: Former Smoker - CARDIAC Hx Hypercholesterolemia: Yes Hx Hypertension: Yes - PULMONARY Hx Respiratory Disorders: No - NEUROLOGICAL HX Cerebrovascular Accident: Yes - HEENT Hx HEENT Problems: Yes (glasses) Hx Cataracts: Yes (right) - RENAL Hx Chronic Kidney Disease: No - ENDOCRINE/METABOLIC Hx Hypothyroidism: Yes - HEMATOLOGICAL/ONCOLOGICAL Hx Blood Disorders: No - INTEGUMENTARY Hx Dermatological Problems: No - MUSCULOSKELETAL/RHEUMATOLOGICAL Hx Arthritis: Yes - GASTROINTESTINAL Hx Gastrointestinal Disorders: No - GENITOURINARY/GYNECOLOGICAL Hx Genitourinary Disorders: Yes (BPH) Hx Incontinence: Yes Hx Prostate Problems: Yes (prostate surgery in 2013) - PSYCHIATRIC Hx Substance Use: No - SURGICAL HISTORY Hx Cholecystectomy: Yes - ANESTHESIA Hx Anesthesia: Yes Hx Anesthesia Reactions: No Hx Malignant Hyperthermia: No Meds Allergies/Adverse Reactions: Allergies Allergy/AdvReac Type Severity Reaction Status Date / Time No Known Allergies Allergy Verified 12/11/16 18:17 Physical Exam - Constitutional Appears: Non-toxic, No Acute Distress, Chronically Ill - Head Exam Head Exam: ATRAUMATIC, NORMAL INSPECTION, NORMOCEPHALIC - Eye Exam Eye Exam: EOMI, Normal appearance, PERRL. absent: Conjunctival injection, Scleral icterus Pupil Exam: NORMAL ACCOMODATION, PERRL - ENT Exam ENT Exam: Mucous Membranes Moist - Neck Exam Neck exam: Positive for: Full Rom, Normal Inspection. Negative for: Lymphadenopathy, Tenderness - Respiratory Exam Respiratory Exam: Clear to Auscultation Bilateral, NORMAL BREATHING PATTERN. absent: Accessory Muscle Use, Rales, Rhonchi, Wheezes, Respiratory Distress - Cardiovascular Exam Cardiovascular Exam: REGULAR RHYTHM, RRR, +S1, +S2. absent: Systolic Murmur - GI/Abdominal Exam GI & Abdominal Exam: Normal Bowel Sounds, Soft. absent: Distended, Firm, Guarding, Rigid, Tenderness - Extremities Exam Additional comments: left foot dressings c/d/i - Back Exam Back exam: NORMAL INSPECTION. absent: rash noted, tenderness - Neurological Exam Neurological exam: Alert, Oriented x3 - Psychiatric Exam Psychiatric exam: Normal Affect, Normal Mood - Skin Skin Exam: Dry, Intact, Normal Color, Warm Results - Vital Signs Recent Vital Signs: Last Vital Signs Temp 98.2 F 12/12/16 01:30 Pulse 78 12/12/16 01:30 Resp 20 12/12/16 01:30 BP 133/55 L 12/12/16 01:30 Pulse Ox 97 12/12/16 01:30 - Labs Result Diagrams: 12/11/16 19:52 12/11/16 19:52 Assessment & Plan - Assessment and Plan (Free Text) Assessment: 81 year old male PMHx of CAD, CHF, DMII, HTN, hyperlipidemia, arthritis, and hypothyroidism sent in by Dr. Gaytan for nonhealing left MTA Plan: Nonhealing left MTA -likely secondary to PAD -Podiatry Dr. Gaytan consulted -Vascular surgeon Dr. Brown consulted -f/u arterial scan LE -ASA 81mg po daily -Plavix 75mg po daily -Tramadol 25mg po tid prn pain On last visit: Arterial doppler: 1.) Occluded left posterior tibial artery. No flow detected throughout the vessel. 2.) Continuous monophasic waveforms, beginning at left superficial femoral artery level. Calcific plaques notted throughout bilateral lower extremities. Slightly increased velocities due to vessel narrowing. No evidence of arterial occlusions of bilateral extremity arteries above the knee. (see full report)\ s/p angiogram - aortofemoral angiogram via right groin, selective angiogram left femoral artery. pathway atherectomy. 40% proximal sfa occlusion and 100% mid and distal sfa occlusion (see full report). -L foot does not look infected- hold abx CHF NYHA Class I -Hold home lasix 20 mg PO daily secondary to acute on chronic kidney injury -f/u CXR CAD -ASA 81mg PO daily -Plavix 75mg PO daily DM2 -f/u HgbA1c -Accucheck -RISS -Lantus 5units Hypercholesterolemia -f/u lipid panel -Crestor 2.5mg po hs Hypertension -Hydralazine 10mg ivp q4 prn SBP > 160 -Losartan 50mg po daily -Metprolol 12.5mg po bid Acute on chronic renal insufficiency -Monitor Hx of Anemia -Feosol 300mg po bid Hx of Hypothyroidism -not on any home meds -f/u thyroid studies PPX -Heparin 5000u sc q12 -Protonix 40mg po daily -SCD c/i -PT/OT -Heart healthy moderate consistent carb renal diet Case discussed with Dr. Karl Jones PGY1 <Simeon Barajas P - Last Filed: 12/19/16 10:55> Results - Vital Signs Recent Vital Signs: Last Vital Signs Temp 97.6 F 12/19/16 09:02 Pulse 90 12/19/16 09:02 Resp 20 12/19/16 09:02 BP 167/73 H 12/19/16 09:02 Pulse Ox 97 12/19/16 09:02 - Labs Result Diagrams: 12/18/16 17:35 12/18/16 17:35 Labs: Laboratory Results - last 24 hr 12/18/16 12/18/16 12/18/16 11:38 17:35 17:35 WBC 7.8 RBC 4.55 Hgb 10.7 L Hct 34.2 L MCV 75.3 L MCH 23.5 L MCHC 31.2 L RDW 19.7 H Plt Count 200 MPV 8.2 Sodium 134 Potassium 4.1 Chloride 104 Carbon Dioxide 20 L Anion Gap 14 BUN 9 Creatinine 0.8 Est GFR ( Amer) > 60 Est GFR (Non-Af Amer) > 60 POC Glucose (mg/dL) 111 H Random Glucose 123 H Calcium 8.6 Phosphorus 3.1 Magnesium 1.7 12/18/16 12/18/16 12/19/16 17:41 22:03 06:51 WBC RBC Hgb Hct MCV MCH MCHC RDW Plt Count MPV Sodium Potassium Chloride Carbon Dioxide Anion Gap BUN Creatinine Est GFR ( Amer) Est GFR (Non-Af Amer) POC Glucose (mg/dL) 129 H 171 H 97 Random Glucose Calcium Phosphorus Magnesium 12/19/16 09:24 WBC RBC Hgb Hct MCV MCH MCHC RDW Plt Count MPV Sodium Potassium Chloride Carbon Dioxide Anion Gap BUN Creatinine Est GFR ( Amer) Est GFR (Non-Af Amer) POC Glucose (mg/dL) 156 H Random Glucose Calcium Phosphorus Magnesium Attending/Attestation - Attestation I have personally seen and examined this patient.: Yes I have fully participated in the care of the patient.: Yes I have reviewed all pertinent clinical information: Yes
--- NOTE | 2016-12-12 05:41 | CP.PCM.CON ---
History of Present Illness - History of Present Illness History of Present Illness: Vascular Surgery Consult: Dr. Brown Pt is an 81M recently discharged from on 10/19/16 who was sent by Dr. Gaytan for non-healing left TMA. During pt's last admission in September he underwent an angio with Dr. Brown with atherectomy of left SFA, balloon angioplasty and stent in distal SFA. He subsequently underwent a TMA with Dr. Gaytan and was sent to [facility] with a PICC for terminologist ABX. Pt presents today because his left foot continues to have a non-healing ulcer. Pt denies any pain in his foot or legs but does admit to some drainage from the ulcer that he states has not been purulent. Pt is able to ambulate with a walker. Denies F/C, chest pain or SOB. Denies other complaints at this time. PMHx: CAD, CHF, DM, HTN, HLD, hypothyroidism, arthritis PSHx: cholecystectomy, L TMA SocialHx: former [employer] smoker, quit 6 months ago. Denies EtOH/drugs NKDA Review of Systems - Review of Systems All systems: reviewed and no additional remarkable complaints except (as per HPI ) Past Patient History - Infectious Disease Hx of Infectious Diseases: None - Tetanus Immunizations Tetanus Immunization: Unknown - Past Medical History & Family History Past Medical History?: Yes Past Family History: Reviewed and not pertinent - Past Social History Smoking Status: Former Smoker - CARDIAC Hx Hypercholesterolemia: Yes Hx Hypertension: Yes - PULMONARY Hx Respiratory Disorders: No - NEUROLOGICAL HX Cerebrovascular Accident: Yes - HEENT Hx HEENT Problems: Yes (glasses) Hx Cataracts: Yes (right) - RENAL Hx Chronic Kidney Disease: No - ENDOCRINE/METABOLIC Hx Hypothyroidism: Yes - HEMATOLOGICAL/ONCOLOGICAL Hx Blood Disorders: No - INTEGUMENTARY Hx Dermatological Problems: No - MUSCULOSKELETAL/RHEUMATOLOGICAL Hx Arthritis: Yes - GASTROINTESTINAL Hx Gastrointestinal Disorders: No - GENITOURINARY/GYNECOLOGICAL Hx Genitourinary Disorders: Yes (BPH) Hx Incontinence: Yes Hx Prostate Problems: Yes (prostate surgery in 2013) - PSYCHIATRIC Hx Substance Use: No - SURGICAL HISTORY Hx Cholecystectomy: Yes - ANESTHESIA Hx Anesthesia: Yes Hx Anesthesia Reactions: No Hx Malignant Hyperthermia: No Meds Allergies/Adverse Reactions: Allergies Allergy/AdvReac Type Severity Reaction Status Date / Time No Known Allergies Allergy Verified 12/11/16 18:17 - Medications Medications: Current Medications Aspirin (Aspirin Chewable) 81 mg PO DAILY MALU Clopidogrel Bisulfate (Plavix) 75 mg PO DAILY MALU Ferrous Sulfate (Feosol Liq) 300 mg PO BID MALU Heparin Sodium (Porcine) (Heparin) 5,000 units SC Q12 MALU Hydralazine HCl (Apresoline) 10 mg IVP Q4H PRN PRN Reason: Systolic Blood Pressure Insulin Aspart (Novolog) 0 unit SC ACHS MALU PRN Reason: Protocol Insulin Glargine (Lantus) 5 unit SC HS MALU Losartan Potassium (Cozaar) 50 mg PO DAILY MALU Metoprolol Tartrate (Lopressor) 12.5 mg PO 0800,1800 MALU Pantoprazole Sodium (Protonix Ec Tab) 40 mg PO DAILY MALU Rosuvastatin Calcium (Crestor) 2.5 mg PO HS MALU Tramadol HCl (Ultram) 25 mg PO TID PRN PRN Reason: Pain, moderate (4-7) Physical Exam - Constitutional Appears: Well, No Acute Distress - Head Exam Head Exam: ATRAUMATIC, NORMOCEPHALIC - Eye Exam Eye Exam: Normal appearance - ENT Exam ENT Exam: Mucous Membranes Moist - Respiratory Exam Respiratory Exam: NORMAL BREATHING PATTERN - Cardiovascular Exam Cardiovascular Exam: RRR - GI/Abdominal Exam GI & Abdominal Exam: Soft. absent: Distended, Tenderness - Extremities Exam Extremities exam: Negative for: pedal edema, tenderness Additional comments: Left TMA stump with ulcer on the superior border; no active drainage noted B/l LE warm, no pedal pulses palpated - Neurological Exam Neurological exam: Alert, Oriented x3 - Skin Skin Exam: Dry, Warm Results - Vital Signs Recent Vital Signs: Last Vital Signs Temp 98.2 F 12/12/16 02:27 Pulse 70 12/12/16 03:00 Resp 20 12/12/16 03:00 BP 152/68 H 12/12/16 03:00 Pulse Ox 98 12/12/16 03:00 - Labs Result Diagrams: 12/11/16 19:52 12/11/16 19:52 Assessment & Plan - Assessment and Plan (Free Text) Assessment: 81M with PAD and non-healing Left TMA Plan: - will discuss need for repeat imaging/studies with Dr. Brown - wound care as per Podiatry recs - will d/w with Dr. Stephanie Lee, PGY-2 Surgery
--- NOTE | 2016-12-12 07:59 | CP.PCM.PN ---
Subjective - Date & Time of Evaluation Date of Evaluation: 12/12/16 Time of Evaluation: 07:59 - Subjective Subjective: Pt seen and examined at bedside. He is resting comfortably and denies pain to left foot. Patient denies drainage from foot. He also denies fever and chills. Patient was living at home and using a walker for ambulation. He denies chest pain, shortness of breath, palpitations, abdominal pain, nausea, vomiting, diarrhea and constipation. Objective - Vital Signs/Intake and Output Vital Signs (last 24 hours): Temp Pulse Resp BP Pulse Ox 98.2 F 70 20 152/68 H 98 12/12/16 02:27 12/12/16 03:00 12/12/16 03:00 12/12/16 03:00 12/12/16 03:00 - Medications Medications: Current Medications Aspirin (Aspirin Chewable) 81 mg PO DAILY MALU Clopidogrel Bisulfate (Plavix) 75 mg PO DAILY MALU Ferrous Sulfate (Feosol Liq) 300 mg PO BID MALU Heparin Sodium (Porcine) (Heparin) 5,000 units SC Q12 MALU Hydralazine HCl (Apresoline) 10 mg IVP Q4H PRN PRN Reason: Systolic Blood Pressure Insulin Aspart (Novolog) 0 unit SC ACHS MALU PRN Reason: Protocol Insulin Glargine (Lantus) 5 unit SC HS MALU Losartan Potassium (Cozaar) 50 mg PO DAILY MALU Metoprolol Tartrate (Lopressor) 12.5 mg PO 0800,1800 MALU Pantoprazole Sodium (Protonix Ec Tab) 40 mg PO DAILY MALU Rosuvastatin Calcium (Crestor) 2.5 mg PO HS MALU Tramadol HCl (Ultram) 25 mg PO TID PRN PRN Reason: Pain, moderate (4-7) - Labs Labs: PT 11.3 SECONDS (9.7-12.2) 12/11/16 19:52 INR 1.0 12/11/16 19:52 APTT 23 SECONDS (21-34) 12/11/16 19:52 - Constitutional Appears: Non-toxic, No Acute Distress - Head Exam Head Exam: ATRAUMATIC, NORMAL INSPECTION, NORMOCEPHALIC - Eye Exam Eye Exam: EOMI, Normal appearance, PERRL - ENT Exam ENT Exam: Mucous Membranes Moist - Neck Exam Neck Exam: Full ROM - Respiratory Exam Respiratory Exam: Clear to Ausculation Bilateral, NORMAL BREATHING PATTERN. absent: Rales, Rhonchi, Wheezes - Cardiovascular Exam Cardiovascular Exam: +S1, +S2. absent: Tachycardia - GI/Abdominal Exam GI & Abdominal Exam: Soft, Normal Bowel Sounds. absent: Distended, Firm, Tenderness - Extremities Exam Extremities Exam: absent: Tenderness Additional comments: dressing to L foot c/d/i - Neurological Exam Neurological Exam: Alert, Awake, Oriented x3 Neuro motor strength exam: Left Upper Extremity: 5, Right Upper Extremity: 5, Left Lower Extremity: 4, Right Lower Extremity: 4 - Psychiatric Exam Psychiatric exam: Normal Affect, Normal Mood - Skin Skin Exam: Normal Color Assessment and Plan - Assessment and Plan (Free Text) Assessment: Nonhealing left MTA likely secondary to PAD -Podiatry Dr. Gaytan consulted. Wound culture obtained from left foot today. Will f/u. Podiatry plans to follow while patient is hospitalized. -Vascular surgeon Dr. Brown consulted. Plans for angiography to evaluate for PAD -f/u arterial scan LE -ASA 81mg po daily -Plavix 75mg po daily -Tramadol 25mg po tid prn pain On last visit: Arterial doppler: 1.) Occluded left posterior tibial artery. No flow detected throughout the vessel. 2.) Continuous monophasic waveforms, beginning at left superficial femoral artery level. Calcific plaques notted throughout bilateral lower extremities. Slightly increased velocities due to vessel narrowing. No evidence of arterial occlusions of bilateral extremity arteries above the knee. (see full report) s/p angiogram - aortofemoral angiogram via right groin, selective angiogram left femoral artery. pathway atherectomy. 40% proximal sfa occlusion and 100% mid and distal sfa occlusion (see full report). -L foot does not look infected- hold abx CHF NYHA Class I -Hold home lasix 20 mg PO daily secondary to acute on chronic kidney injury -f/u CXR CAD -ASA 81mg PO daily -Plavix 75mg PO daily DM2 -HgbA1c 7.2 -Accucheck -RISS -Lantus 5units. Called PMD, not certain Hypercholesterolemia -LDL 125, HDL 24, Cholesterol 187, Triglycerides 208 -Crestor 2.5mg po hs Hypertension -Hydralazine 10mg ivp q6 prn SBP > 160 -Losartan 50mg po daily -Metprolol 12.5mg po bid Acute on chronic renal insufficiency -Monitor Hx of Anemia -Feosol 300mg po bid Hx of Hypothyroidism -not on any home meds -TSH 6.33, Free T4 0.96 PPX -Heparin 5000u sc q12 -Protonix 40mg po daily -SCD c/i -PT/OT -Heart healthy moderate consistent carb renal diet
[2016-12-12] MEDS: (Novolog) Insulin Aspart, Recombinant 100 u/ml 10 ml vial SC SCH ×4 (08:30→22:10)
[2016-12-12] MEDS: Pantoprazole 40 mg EC Tab PO SCH (09:14)
[2016-12-12] MEDS: Ferrous Sulfate 300 mg/5 mL Liq UD PO SCH ×2 (09:14→18:47)
[2016-12-12 09:34] LABS: BASO # 0.1 K/uL (0.0-0.2); BASO % 0.8 % (0.0-2.0); EOS # 0.5 K/uL (0.0-0.7); EOS % 6.7 % (0.0-4.0); HEMATOCRIT 37.3 % (35.0-51.0); LYMPH # 2.2 K/uL (1.0-4.3); LYMPH % 30.5 % (20.0-40.0); MEAN CELL VOLUME 74.6 fL (80.0-94.0); MEAN CORPUSCULAR HEMOGLOBIN 23.3 pg (27.0-31.0); MEAN CORPUSCULAR HGB CONC 31.3 g/dL (33.0-37.0); MONO # 0.8 K/uL (0.0-0.8); MONO % 11.6 % (0.0-10.0); RED CELL DISTRIBUTION WIDTH 19.8 % (11.5-14.5); WHITE BLOOD COUNT 7.2 K/uL (4.8-10.8)
[2016-12-12 09:47] LABS: POTASSIUM 3.9 mmol/L (3.6-5.2)
[2016-12-12 09:49] LABS: ALB/GLOB RATIO 0.8 (1.0-2.1); BILIRUBIN,TOTAL 0.5 mg/dL (0.2-1.3); PHOSPHOROUS 3.7 mg/dL (2.5-4.5)
[2016-12-12 09:50] LABS: CALCIUM 9.2 mg/dl (8.6-10.4); MAGNESIUM 1.6 mg/dL (1.6-2.3)
[2016-12-12 10:22] LABS: THYROID STIMULATING HORMONE 6.33 mIU/L (0.46-4.68)
--- NOTE | 2016-12-12 12:03 | CP.PCM.CON ---
History of Present Illness - History of Present Illness History of Present Illness: Podiatry consult: Dr. Gaytan 81 y/o male patient with PMHx of CAD, CHF, DM, HTN, HLD, hypothyroidism, arthritis seen and evaluated at bedside after request for podiatry consult. Patient was sent to [facility] [place] from Dr. Gaytan. Patient was recently discharged from [facility] on 10/19/16 after Left foot TMA. Patient returned to hospital due to non-healing Left foot TMA site. Patient was sent to [facility] for longterm abx treatment. Patient denies any pedal pain at this time. Patient also denies any symptoms of N/V/F/SOB/Chest pain. PMHx: CAD, CHF, DM, HTN, HLD, hypothyroidism, arthritis PSHx: cholecystectomy, L TMA SocialHx: former PPD smoker, quit 6 months ago. Denies EtOH/drugs All:NKDA Past Patient History - Infectious Disease Hx of Infectious Diseases: None - Tetanus Immunizations Tetanus Immunization: Unknown - Past Medical History & Family History Past Medical History?: Yes Past Family History: Reviewed and not pertinent - Past Social History Smoking Status: Former Smoker - CARDIAC Hx Hypercholesterolemia: Yes Hx Hypertension: Yes - PULMONARY Hx Respiratory Disorders: No - NEUROLOGICAL HX Cerebrovascular Accident: Yes - HEENT Hx HEENT Problems: Yes (glasses) Hx Cataracts: Yes (right) - RENAL Hx Chronic Kidney Disease: No - ENDOCRINE/METABOLIC Hx Hypothyroidism: Yes - HEMATOLOGICAL/ONCOLOGICAL Hx Blood Disorders: No - INTEGUMENTARY Hx Dermatological Problems: No - MUSCULOSKELETAL/RHEUMATOLOGICAL Hx Arthritis: Yes - GASTROINTESTINAL Hx Gastrointestinal Disorders: No - GENITOURINARY/GYNECOLOGICAL Hx Genitourinary Disorders: Yes (BPH) Hx Incontinence: Yes Hx Prostate Problems: Yes (prostate surgery in 2013) - PSYCHIATRIC Hx Substance Use: No - SURGICAL HISTORY Hx Cholecystectomy: Yes - ANESTHESIA Hx Anesthesia: Yes Hx Anesthesia Reactions: No Hx Malignant Hyperthermia: No Meds Allergies/Adverse Reactions: Allergies Allergy/AdvReac Type Severity Reaction Status Date / Time No Known Allergies Allergy Verified 12/11/16 18:17 - Medications Medications: Current Medications Aspirin (Aspirin Chewable) 81 mg PO DAILY [facility] Last Admin: 12/12/16 09:14 Dose: 81 mg Clopidogrel Bisulfate (Plavix) 75 mg PO DAILY [facility] Last Admin: 12/12/16 09:14 Dose: 75 mg Ferrous Sulfate (Feosol Liq) 300 mg PO BID [facility] Last Admin: 12/12/16 09:14 Dose: 300 mg Heparin Sodium (Porcine) (Heparin) 5,000 units SC Q12 [facility] Last Admin: 12/12/16 09:14 Dose: 5,000 units Hydralazine HCl (Apresoline) 10 mg IVP Q4H PRN PRN Reason: Systolic Blood Pressure Insulin Aspart (Novolog) 0 unit SC ACHS [facility] PRN Reason: Protocol Last Admin: 12/12/16 08:30 Dose: Not Given Insulin Glargine (Lantus) 5 unit SC HS [facility] Losartan Potassium (Cozaar) 50 mg PO DAILY [facility] Last Admin: 12/12/16 09:14 Dose: 50 mg Metoprolol Tartrate (Lopressor) 12.5 mg PO 0800,1800 [facility] Last Admin: 12/12/16 08:46 Dose: 12.5 mg Pantoprazole Sodium (Protonix Ec Tab) 40 mg PO DAILY [facility] Last Admin: 12/12/16 09:14 Dose: 40 mg Rosuvastatin Calcium (Crestor) 2.5 mg PO HS [facility] Tramadol HCl (Ultram) 25 mg PO TID PRN PRN Reason: Pain, moderate (4-7) Physical Exam - Constitutional Appears: Non-toxic, No Acute Distress - Extremities Exam Additional comments: Left lower extremity Vascular: DP and PT non-palpable, mild foot edema noted, normal skin temp Derm: non-healing TMA site, serous drainage noted, fibrotic wound bed, probe to bone, eschar noted at the TMA site Ortho: No pain with palpation to the TMA site Neuro: Diminished Protective sensation and light touch - Neurological Exam Neurological exam: Alert - Psychiatric Exam Psychiatric exam: Normal Affect, Normal Mood Results - Vital Signs Recent Vital Signs: Last Vital Signs Temp 97.5 F L 12/12/16 07:30 Pulse 80 12/12/16 09:14 Resp 18 12/12/16 07:30 BP 151/79 H 12/12/16 09:14 Pulse Ox 98 12/12/16 07:30 - Labs Result Diagrams: 12/12/16 09:25 12/12/16 09:25 Labs: Laboratory Results - last 24 hr 12/12/16 12/12/16 12/12/16 08:54 09:25 09:25 WBC 7.2 RBC 5.00 Hgb 11.7 L Hct 37.3 MCV 74.6 L MCH 23.3 L MCHC 31.3 L RDW 19.8 H Plt Count 195 MPV 8.0 Neut % (Auto) 50.4 Lymph % (Auto) 30.5 [place] % (Auto) 11.6 H Eos % (Auto) 6.7 H Baso % (Auto) 0.8 Neut # 3.6 Lymph # 2.2 [place] # 0.8 Eos # 0.5 Baso # 0.1 APTT Sodium 138 Potassium 3.9 Chloride 100 Carbon Dioxide 26 Anion Gap 16 BUN 29 H Creatinine 1.4 Est GFR ( Amer) 59 Est GFR (Non-Af Amer) 49 POC Glucose (mg/dL) 182 H Random Glucose 163 H Hemoglobin A1c Calcium 9.2 Phosphorus 3.7 Magnesium 1.6 Total Bilirubin 0.5 AST 24 ALT 25 Alkaline Phosphatase 101 Total Protein 8.0 Albumin 3.6 Globulin 4.3 H Albumin/Globulin Ratio 0.8 L Triglycerides 208 H Cholesterol 187 LDL Cholesterol Direct 125 HDL Cholesterol 24 L Free T4 TSH 3rd Generation 6.33 H 12/12/16 12/12/16 12/12/16 09:25 09:25 09:25 WBC RBC Hgb Hct MCV MCH MCHC RDW Plt Count MPV Neut % (Auto) Lymph % (Auto) [place] % (Auto) Eos % (Auto) Baso % (Auto) Neut # Lymph # [place] # Eos # Baso # APTT 31 D Sodium Potassium Chloride Carbon Dioxide Anion Gap BUN Creatinine Est GFR ( Amer) Est GFR (Non-Af Amer) POC Glucose (mg/dL) Random Glucose Hemoglobin A1c 7.2 H D Calcium Phosphorus Magnesium Total Bilirubin AST ALT Alkaline Phosphatase Total Protein Albumin Globulin Albumin/Globulin Ratio Triglycerides Cholesterol LDL Cholesterol Direct HDL Cholesterol Free T4 0.96 TSH 3rd Generation Assessment & Plan - Assessment and Plan (Free Text) Assessment: 81 y/o male patient with non-healing left foot TMA site secondary to PVD Plan: Patient seen and evaluated at bedside Discussed with attending Dr. Gaytan Wound culture was obtained from left foot Applied betadine and DSD tot he left foot TMA site Labs and vitals were reviewed ( WBC: 7.2) Per Dr. Brown: will do Angio on him Podiatry will continue to follow while patient remains in house
[2016-12-12] MEDS ORDERED: Iodixanol 320 mg/ml 150 ml Bottle IV ONE (13:39)
--- NOTE | 2016-12-12 14:19 | RAD ---
HISTORY: preop COMPARISON: Comparison is made to the previous study dated 10/15/2016 FINDINGS: LUNGS: No evidence of new infiltrate or consolidation in the lungs. The patient is rotated to the left. PLEURA: No significant pleural effusion identified, no pneumothorax apparent. CARDIOVASCULAR: Normal. OSSEOUS STRUCTURES: No significant abnormalities. VISUALIZED UPPER ABDOMEN: Normal. OTHER FINDINGS: None. IMPRESSION: No significant interval change since the previous study
--- NOTE | 2016-12-12 18:21 | CON ---
DATE: 12/12/2016 An 81-year-old man well known to me who recently underwent interventions on his leg where we carried out an angioplasty of the left leg placing a stent in the proximal portion and a stent in the distal portion of the superficial femoral artery. On exam now he has nonhealing of a transmetatarsal amputa tion site and on exam, he has a good popliteal pulse. His previous studies indicated runoff via the anterior tibial and reconstitution of a very small ____ tibial at the ankle. Our plan would be to repeat his imaging to see if these are open and if they a re open and patent, then there is really not much else that can be done. If they are not patent, the n additional ____ endovascular intervention. Elver Brown Jr., MD cc: [id number] TT: 12/12/2016 18:20:25 Confirmation # [id number] Dictation # [id number] sn
[2016-12-12] MEDS ORDERED: Sodium Chloride 0.9% 1,000 ML IV SCH (21:15)
[2016-12-12] MEDS ORDERED: (Lantus) Insulin Glargine, Recombinant SC SCH (22:00)
[2016-12-12] MEDS: Rosuvastatin Calcium 2.5 mg Tab PO SCH (22:09)
--- NOTE | 2016-12-13 07:14 | CP.PCM.PN ---
Subjective - Date & Time of Evaluation Date of Evaluation: 12/13/16 Time of Evaluation: 07:14 - Subjective Subjective: Patient seen and examined at bedside. Patient reports pain to left foot at side of TMA. Personality appears flat today and he is bert in his responses. Patient denies other symptoms including chest pain, palpitations, SOB, cough, abdominal pain, nausea, vomiting, diarrhea, constipation, increased urinary frequency and dysuria. Objective - Vital Signs/Intake and Output Vital Signs (last 24 hours): Temp Pulse Resp BP Pulse Ox 97.6 F 70 20 162/66 H 99 12/12/16 23:25 12/12/16 23:25 12/12/16 23:25 12/12/16 23:25 12/12/16 23:25 Intake and Output: 12/13/16 12/13/16 06:59 18:59 Intake Total 540 Output Total 200 Balance 340 - Medications Medications: Current Medications Aspirin (Aspirin Chewable) 81 mg PO DAILY [facility] Last Admin: 12/12/16 09:14 Dose: 81 mg Clopidogrel Bisulfate (Plavix) 75 mg PO DAILY [facility] Last Admin: 12/12/16 09:14 Dose: 75 mg Ferrous Sulfate (Feosol Liq) 300 mg PO BID [facility] Last Admin: 12/12/16 18:47 Dose: 300 mg Heparin Sodium (Porcine) (Heparin) 5,000 units SC Q12 [facility] Last Admin: 12/12/16 22:09 Dose: 5,000 units Hydralazine HCl (Apresoline) 10 mg IVP Q6H PRN PRN Reason: Systolic Blood Pressure Sodium Chloride (Sodium Chloride 0.9%) 1,000 mls @ 75 mls/hr IV .[id number] [facility] Insulin Aspart (Novolog) 0 unit SC ACHS [facility] PRN Reason: Protocol Last Admin: 12/12/16 22:10 Dose: Not Given Insulin Glargine (Lantus) 5 unit SC HS [facility] Last Admin: 12/12/16 22:10 Dose: 5 units Losartan Potassium (Cozaar) 50 mg PO DAILY [facility] Last Admin: 12/12/16 09:14 Dose: 50 mg Metoprolol Tartrate (Lopressor) 12.5 mg PO 0800,1800 [facility] Last Admin: 12/12/16 18:47 Dose: 12.5 mg Pantoprazole Sodium (Protonix Ec Tab) 40 mg PO DAILY [facility] Last Admin: 12/12/16 09:14 Dose: 40 mg Rosuvastatin Calcium (Crestor) 2.5 mg PO HS [facility] Last Admin: 12/12/16 22:09 Dose: 2.5 mg Tramadol HCl (Ultram) 25 mg PO TID PRN PRN Reason: Pain, moderate (4-7) - Labs Labs: 12/12/16 09:25 12/12/16 09:25 PT 11.3 SECONDS (9.7-12.2) 12/11/16 19:52 INR 1.0 12/11/16 19:52 APTT 31 SECONDS (21-34) D 12/12/16 09:25 - Constitutional Appears: Non-toxic, No Acute Distress, Confused - Head Exam Head Exam: ATRAUMATIC, NORMAL INSPECTION, NORMOCEPHALIC - Eye Exam Eye Exam: EOMI, Normal appearance, PERRL - ENT Exam ENT Exam: Mucous Membranes Moist - Neck Exam Neck Exam: Full ROM, Normal Inspection - Respiratory Exam Respiratory Exam: Clear to Ausculation Bilateral, NORMAL BREATHING PATTERN. absent: Rales, Rhonchi, Wheezes - Cardiovascular Exam Cardiovascular Exam: +S1, +S2. absent: Bradycardia, Tachycardia - GI/Abdominal Exam GI & Abdominal Exam: Soft, Normal Bowel Sounds. absent: Firm, Tenderness - Extremities Exam Extremities Exam: Tenderness. absent: Pedal Edema Additional comments: TTP of left foot. Dressing c/d/i cold RLE pulses diminished to RLE - Neurological Exam Neurological Exam: Alert, Awake. absent: Oriented x3 - Psychiatric Exam Psychiatric exam: Flat Affect. absent: Normal Affect, Normal Mood Assessment and Plan - Assessment and Plan (Free Text) Assessment: Nonhealing left MTA likely secondary to PAD -Podiatry Dr. Gaytan consulted. Podiatry plans to follow while patient is hospitalized. -Wound culture: Gram negative debra -Vascular surgeon Dr. Brown consulted. Plans for angiography to evaluate for PAD. -Abdominal Angiography: CTA ABDOMEN PELVIS:1. Moderate calcific plaque throughout the abdominal aorta without stenosis. 2. 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 There is poststenotic dilatation. 3. There is moderate stenosis of the origin of the superior mesenteric artery. 4. Both renal arteries have moderate stenosis at the origin. LEFT LOWER EXTREMITY CT ANGIOGRAM:1. Unremarkable common femoral artery. 2. Patent distal SFA stent. 3. Popliteal artery has moderate diffuse stenosis. 4. Left runoff shows patent anterior tibial artery. Posterior tibial artery and peroneal artery believed to be occluded. RIGHT LOWER EXTREMITY CTA:1. Common femoral artery is unremarkable 2. Moderate calcific plaque throughout the SFA with there is a moderate stenosis in the mid SFA. 3. Moderate stenosis of popliteal artery 4. Unremarkable anterior tibial artery. Posterior tibial artery and peroneal artery believed to be occluded. NONVASCULAR FINDINGS: Prostate measures 6.7 centimeter AP x 5.4 centimeter transverse with mass effect on the urinary bladder. -For Angio -ASA 81mg po daily -Plavix 75mg po daily -Tramadol 25mg po tid prn pain On last visit: Arterial doppler: 1.) Occluded left posterior tibial artery. No flow detected throughout the vessel. 2.) Continuous monophasic waveforms, beginning at left superficial femoral artery level. Calcific plaques notted throughout bilateral lower extremities. Slightly increased velocities due to vessel narrowing. No evidence of arterial occlusions of bilateral extremity arteries above the knee. (see full report) s/p angiogram - aortofemoral angiogram via right groin, selective angiogram left femoral artery. pathway atherectomy. 40% proximal sfa occlusion and 100% mid and distal sfa occlusion (see full report). -L foot does not look infected- hold abx CHF NYHA Class I -Hold home lasix 20 mg PO daily secondary to acute on chronic kidney injury -CXR: No evidence of new infiltrate or consolidation in the lungs. No significant pleural effusion or pneumothorax apparent. CAD -ASA 81mg PO daily -Plavix 75mg PO daily DM2 -HgbA1c 7.2 -Accucheck -RISS -Lantus 10units HS - confirmed by pharmacy Hypercholesterolemia -LDL 125, HDL 24, Cholesterol 187, Triglycerides 208 -Crestor 2.5mg po hs Hypertension -Hydralazine 10mg ivp q6 prn SBP > 160 -Losartan 50mg po daily -Metprolol 12.5mg po bid Acute on chronic renal insufficiency -Improving -BUN/CR 23/1.2 -Continue Normal saline 75cc/hr IV -Nephrology, Dr. Carmona consulted. Recommends IV fluids prior to angio and close renal function follow-up post procedure -Renal US: Bilateral renal cysts, some of which are mildly complex containing calcifications and septations (see full report) Hx of Iron Deficiency Anemia -Feosol 300mg po bid Hx of Hypothyroidism -Restart Synthroid 100 mcg po AM -TSH 6.33, Free T4 0.96 PPX -Heparin 5000u sc q12 -Protonix 40mg po daily -SCD c/i -PT/OT -Heart healthy moderate consistent carb renal diet -Palliative Care Consult- Full Code. Plan to discuss goals of care with son tomorrow as patient was forgetful during interview with AUDIO/VISUAL OPERATOR, Eliana Escudero
[2016-12-13] MEDS: (Novolog) Insulin Aspart, Recombinant 100 u/ml 10 ml vial SC SCH ×4 (07:30→21:22)
[2016-12-13 09:01] LABS: BASO # 0.1 K/uL (0.0-0.2); BASO % 0.8 % (0.0-2.0); EOS # 0.6 K/uL (0.0-0.7); HEMATOCRIT 37.8 % (35.0-51.0); LYMPH # 2.6 K/uL (1.0-4.3); LYMPH % 33.2 % (20.0-40.0); MEAN CELL VOLUME 75.1 fL (80.0-94.0); MEAN CORPUSCULAR HEMOGLOBIN 23.5 pg (27.0-31.0); MEAN CORPUSCULAR HGB CONC 31.3 g/dL (33.0-37.0); MEAN PLATELET VOLUME 8.1 fL (7.2-11.7); MONO # 0.9 K/uL (0.0-0.8); MONO % 11.9 % (0.0-10.0); NRBC % 0.1 % (0.0-2.0); RED CELL DISTRIBUTION WIDTH 19.5 % (11.5-14.5); WHITE BLOOD COUNT 7.9 K/uL (4.8-10.8)
[2016-12-13 09:20] LABS: CHLORIDE 102 mmol/L (98-107)
[2016-12-13 09:21] LABS: POTASSIUM 3.9 mmol/L (3.6-5.2); SODIUM 138 mmol/L (132-148)
[2016-12-13 09:23] LABS: ALB/GLOB RATIO 0.9 (1.0-2.1); ALKALINE PHOSPHATASE 112 U/L (38-126); ALT/SGPT 27 U/L (21-72); AST/SGOT 24 U/L (17-59); BILIRUBIN,TOTAL 0.5 mg/dL (0.2-1.3); BLOOD UREA NITROGEN 23 mg/dL (9-20); CARBON DIOXIDE 25 mmol/L (22-30); GFR AFRICAN-AMERICAN > 60; TOTAL PROTEIN 8.3 g/dL (6.3-8.3)
[2016-12-13 09:24] LABS: CALCIUM 9.1 mg/dl (8.6-10.4); GLUCOSE,RANDOM 116 mg/dL (75-110); MAGNESIUM 1.7 mg/dL (1.6-2.3)
[2016-12-13] MEDS: Ferrous Sulfate 300 mg/5 mL Liq UD PO SCH ×2 (09:48→17:53)
[2016-12-13] MEDS: Pantoprazole 40 mg EC Tab PO SCH (09:48)
--- NOTE | 2016-12-13 11:36 | CP.PCM.CON ---
History of Present Illness - History of Present Illness History of Present Illness: 81 y/o male patient with PMHx of CAD, CHF, DM, HTN, HLD, hypothyroidism, arthritis seen and evaluated at bedside after request for renal consult. Patient was sent to [facility] from Dr. Gaytan. Patient was recently discharged from [facility] on 10/19/16 after Left foot TMA. Patient returned to hospital due to non-healing Left foot TMA site. 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 Patient denies any pedal pain at this time. Patient also denies any symptoms of N/V/F/SOB/Chest pain. PMHx: CAD, CHF, DM, HTN, HLD, hypothyroidism, arthritis PSHx: cholecystectomy, L TMA SocialHx: former PPD smoker, quit 6 months ago. Denies EtOH/drugs All:NKDA Consult dictated Will pursue renal workup Recommend IV fluids prior to angio Follow up renal function closely post angio Past Patient History - Infectious Disease Hx of Infectious Diseases: None - Tetanus Immunizations Tetanus Immunization: Unknown - Past Medical History & Family History Past Medical History?: Yes Past Family History: Reviewed and not pertinent - Past Social History Smoking Status: Former Smoker - CARDIAC Hx Hypercholesterolemia: Yes Hx Hypertension: Yes - PULMONARY Hx Respiratory Disorders: No - NEUROLOGICAL HX Cerebrovascular Accident: Yes - HEENT Hx HEENT Problems: Yes (glasses) Hx Cataracts: Yes (right) - RENAL Hx Chronic Kidney Disease: No - ENDOCRINE/METABOLIC Hx Hypothyroidism: Yes - HEMATOLOGICAL/ONCOLOGICAL Hx Blood Disorders: No - INTEGUMENTARY Hx Dermatological Problems: No - MUSCULOSKELETAL/RHEUMATOLOGICAL Hx Arthritis: Yes - GASTROINTESTINAL Hx Gastrointestinal Disorders: No - GENITOURINARY/GYNECOLOGICAL Hx Genitourinary Disorders: Yes (BPH) Hx Incontinence: Yes Hx Prostate Problems: Yes (prostate surgery in 2013) - PSYCHIATRIC Hx Substance Use: No - SURGICAL HISTORY Hx Cholecystectomy: Yes - ANESTHESIA Hx Anesthesia: Yes Hx Anesthesia Reactions: No Hx Malignant Hyperthermia: No Meds Allergies/Adverse Reactions: Allergies Allergy/AdvReac Type Severity Reaction Status Date / Time No Known Allergies Allergy Verified 12/11/16 18:17 - Medications Medications: Current Medications Aspirin (Aspirin Chewable) 81 mg PO DAILY [facility] Last Admin: 12/13/16 09:48 Dose: 81 mg Clopidogrel Bisulfate (Plavix) 75 mg PO DAILY [facility] Last Admin: 12/13/16 09:49 Dose: 75 mg Ferrous Sulfate (Feosol Liq) 300 mg PO BID [facility] Last Admin: 12/13/16 09:48 Dose: 300 mg Heparin Sodium (Porcine) (Heparin) 5,000 units SC Q12 [facility] Last Admin: 12/13/16 09:50 Dose: 5,000 units Hydralazine HCl (Apresoline) 10 mg IVP Q6H PRN PRN Reason: Systolic Blood Pressure Last Admin: 12/13/16 09:54 Dose: 10 mg Sodium Chloride (Sodium Chloride 0.9%) 1,000 mls @ 75 mls/hr IV .[id number] [facility] Insulin Aspart (Novolog) 0 unit SC ACHS [facility] PRN Reason: Protocol Last Admin: 12/13/16 07:30 Dose: Not Given Insulin Glargine (Lantus) 5 unit SC HS [facility] Last Admin: 12/12/16 22:10 Dose: 5 units Losartan Potassium (Cozaar) 50 mg PO DAILY [facility] Last Admin: 12/13/16 09:48 Dose: 50 mg Metoprolol Tartrate (Lopressor) 12.5 mg PO 0800,1800 [facility] Last Admin: 12/13/16 09:48 Dose: 12.5 mg Pantoprazole Sodium (Protonix Ec Tab) 40 mg PO DAILY [facility] Last Admin: 12/13/16 09:48 Dose: 40 mg Rosuvastatin Calcium (Crestor) 2.5 mg PO HS [facility] Last Admin: 12/12/16 22:09 Dose: 2.5 mg Tramadol HCl (Ultram) 25 mg PO TID PRN PRN Reason: Pain, moderate (4-7) Results - Vital Signs Recent Vital Signs: Last Vital Signs Temp 97.3 F L 12/13/16 07:30 Pulse 80 12/13/16 07:30 Resp 18 12/13/16 07:30 BP 172/71 H 12/13/16 07:30 Pulse Ox 97 12/13/16 07:30 - Labs Result Diagrams: 12/13/16 08:47 12/13/16 08:47 Labs: Laboratory Results - last 24 hr 12/12/16 12/12/16 12/12/16 11:18 16:27 21:34 WBC RBC Hgb Hct MCV MCH MCHC RDW Plt Count MPV Neut % (Auto) Lymph % (Auto) [place] % (Auto) Eos % (Auto) Baso % (Auto) Neut # Lymph # [place] # Eos # Baso # Sodium Potassium Chloride Carbon Dioxide Anion Gap BUN Creatinine Est GFR ( Amer) Est GFR (Non-Af Amer) POC Glucose (mg/dL) 173 H 115 H 111 H Random Glucose Calcium Magnesium Total Bilirubin AST ALT Alkaline Phosphatase Total Protein Albumin Globulin Albumin/Globulin Ratio 12/13/16 12/13/16 08:47 08:47 WBC 7.9 RBC 5.03 Hgb 11.8 L Hct 37.8 MCV 75.1 L MCH 23.5 L MCHC 31.3 L RDW 19.5 H Plt Count 213 MPV 8.1 Neut % (Auto) 46.1 L Lymph % (Auto) 33.2 [place] % (Auto) 11.9 H Eos % (Auto) 8.0 H Baso % (Auto) 0.8 Neut # 3.6 Lymph # 2.6 [place] # 0.9 H Eos # 0.6 Baso # 0.1 Sodium 138 Potassium 3.9 Chloride 102 Carbon Dioxide 25 Anion Gap 16 BUN 23 H Creatinine 1.2 Est GFR ( Amer) > 60 Est GFR (Non-Af Amer) 58 POC Glucose (mg/dL) Random Glucose 116 H Calcium 9.1 Magnesium 1.7 Total Bilirubin 0.5 AST 24 ALT 27 Alkaline Phosphatase 112 Total Protein 8.3 Albumin 3.9 Globulin 4.4 H Albumin/Globulin Ratio 0.9 L
--- NOTE | 2016-12-13 11:39 | CP.PCM.PN ---
Subjective - Date & Time of Evaluation Date of Evaluation: 12/13/16 Time of Evaluation: 05:40 - Subjective Subjective: SURGERY PROGRESS NOTE FOR DR. BOURNE 81M seen and examined bedside. No acute events overnight. Objective - Vital Signs/Intake and Output Vital Signs (last 24 hours): Temp Pulse Resp BP Pulse Ox 97.3 F L 80 18 172/71 H 97 12/13/16 07:30 12/13/16 07:30 12/13/16 07:30 12/13/16 07:30 12/13/16 07:30 Intake and Output: 12/13/16 12/13/16 06:59 18:59 Intake Total 540 Output Total 200 Balance 340 - Medications Medications: Current Medications Aspirin (Aspirin Chewable) 81 mg PO DAILY [facility] Last Admin: 12/13/16 09:48 Dose: 81 mg Clopidogrel Bisulfate (Plavix) 75 mg PO DAILY [facility] Last Admin: 12/13/16 09:49 Dose: 75 mg Ferrous Sulfate (Feosol Liq) 300 mg PO BID [facility] Last Admin: 12/13/16 09:48 Dose: 300 mg Heparin Sodium (Porcine) (Heparin) 5,000 units SC Q12 [facility] Last Admin: 12/13/16 09:50 Dose: 5,000 units Hydralazine HCl (Apresoline) 10 mg IVP Q6H PRN PRN Reason: Systolic Blood Pressure Last Admin: 12/13/16 09:54 Dose: 10 mg Sodium Chloride (Sodium Chloride 0.9%) 1,000 mls @ 75 mls/hr IV .[id number] [facility] Insulin Aspart (Novolog) 0 unit SC ACHS [facility] PRN Reason: Protocol Last Admin: 12/13/16 07:30 Dose: Not Given Insulin Glargine (Lantus) 5 unit SC HS [facility] Last Admin: 12/12/16 22:10 Dose: 5 units Losartan Potassium (Cozaar) 50 mg PO DAILY [facility] Last Admin: 12/13/16 09:48 Dose: 50 mg Metoprolol Tartrate (Lopressor) 12.5 mg PO 0800,1800 [facility] Last Admin: 12/13/16 09:48 Dose: 12.5 mg Pantoprazole Sodium (Protonix Ec Tab) 40 mg PO DAILY [facility] Last Admin: 12/13/16 09:48 Dose: 40 mg Rosuvastatin Calcium (Crestor) 2.5 mg PO HS [facility] Last Admin: 12/12/16 22:09 Dose: 2.5 mg Tramadol HCl (Ultram) 25 mg PO TID PRN PRN Reason: Pain, moderate (4-7) - Labs Labs: 12/13/16 08:47 12/13/16 08:47 PT 11.3 SECONDS (9.7-12.2) 12/11/16 19:52 INR 1.0 12/11/16 19:52 APTT 31 SECONDS (21-34) D 12/12/16 09:25 - Constitutional Appears: Non-toxic, No Acute Distress - Respiratory Exam Respiratory Exam: Clear to Ausculation Bilateral, NORMAL BREATHING PATTERN - Cardiovascular Exam Cardiovascular Exam: REGULAR RHYTHM, +S1, +S2 - Extremities Exam Additional comments: Left TMA stump with ulcer on the superior border; no active drainage noted B/l LE warm, no pedal pulses palpated - Neurological Exam Neurological Exam: Alert, Awake Assessment and Plan - Assessment and Plan (Free Text) Assessment: 81M with PAD and non-healing Left TMA Plan: - await official CTA read - Pt will possibly need angiongram - wound care as per Podiatry recs - will d/w with Dr. Stephanie Lester, PGY1
[2016-12-13 13:51] LABS: RBC URINE 1 /hpf (0-3); URINE BACTERIA RARE (<OCC); URINE BILIRUBIN NEGATIVE (NEGATIVE); URINE BLOOD NEGATIVE (NEGATIVE); URINE COLOR Yellow (YELLOW); URINE GLUCOSE (UA) NORMAL (Normal); URINE KETONE NEGATIVE (NEGATIVE); URINE LEUKOCYTE ESTERASE NEG Leu/uL (Negative); URINE PROTEIN 1+ mg/dL (NEGATIVE); URINE UROBILINOGEN NORMAL mg/dL (0.2-1.0); WBC URINE 1 /hpf (0-5)
--- NOTE | 2016-12-13 13:53 | CP.PCM.PN ---
Subjective - Date & Time of Evaluation Date of Evaluation: 12/13/16 Time of Evaluation: 13:51 - Subjective Subjective: 81 y/o male was seen and evaluated at bedside with Dr. Gaytan for followup of left foot TMA site nonhealing wound. Patient was resting comfortably in bed. Left foot dressing was intact, clean, and dry. Patient denies any symptoms of N/ V/F/SOB/chills and chest pains. Objective - Vital Signs/Intake and Output Vital Signs (last 24 hours): Temp Pulse Resp BP Pulse Ox 97.3 F L 80 18 172/71 H 97 12/13/16 07:30 12/13/16 07:30 12/13/16 07:30 12/13/16 07:30 12/13/16 07:30 Intake and Output: 12/13/16 12/13/16 06:59 18:59 Intake Total 540 Output Total 200 Balance 340 - Medications Medications: Current Medications Amlodipine Besylate (Norvasc) 5 mg PO DAILY [facility] Aspirin (Aspirin Chewable) 81 mg PO DAILY [facility] Last Admin: 12/13/16 09:48 Dose: 81 mg Clopidogrel Bisulfate (Plavix) 75 mg PO DAILY [facility] Last Admin: 12/13/16 09:49 Dose: 75 mg Ferrous Sulfate (Feosol Liq) 300 mg PO BID [facility] Last Admin: 12/13/16 09:48 Dose: 300 mg Heparin Sodium (Porcine) (Heparin) 5,000 units SC Q12 [facility] Last Admin: 12/13/16 09:50 Dose: 5,000 units Hydralazine HCl (Apresoline) 10 mg IVP Q6H PRN PRN Reason: Systolic Blood Pressure Last Admin: 12/13/16 09:54 Dose: 10 mg Sodium Chloride (Sodium Chloride 0.9%) 1,000 mls @ 75 mls/hr IV .[id number] [facility] Insulin Aspart (Novolog) 0 unit SC ACHS [facility] PRN Reason: Protocol Last Admin: 12/13/16 07:30 Dose: Not Given Insulin Glargine (Lantus) 5 unit SC HS [facility] Last Admin: 12/12/16 22:10 Dose: 5 units Metoprolol Tartrate (Lopressor) 12.5 mg PO 0800,1800 [facility] Last Admin: 12/13/16 09:48 Dose: 12.5 mg Pantoprazole Sodium (Protonix Ec Tab) 40 mg PO DAILY [facility] Last Admin: 12/13/16 09:48 Dose: 40 mg Rosuvastatin Calcium (Crestor) 2.5 mg PO HS [facility] Last Admin: 12/12/16 22:09 Dose: 2.5 mg Tramadol HCl (Ultram) 25 mg PO TID PRN PRN Reason: Pain, moderate (4-7) - Labs Labs: 12/13/16 08:47 12/13/16 08:47 PT 11.3 SECONDS (9.7-12.2) 12/11/16 19:52 INR 1.0 12/11/16 19:52 APTT 31 SECONDS (21-34) D 12/12/16 09:25 - Constitutional Appears: Well, Non-toxic, No Acute Distress - Extremities Exam Additional comments: Left lower extremity Vascular: DP and PT non-palpable, mild foot edema noted, normal skin temp Derm: non-healing TMA site, serous drainage noted, fibrotic wound bed, probe to bone, eschar noted at the TMA site Ortho: No pain with palpation to the TMA site Neuro: Diminished Protective sensation and light touch - Neurological Exam Neurological Exam: Alert, Awake - Psychiatric Exam Psychiatric exam: Normal Affect, Normal Mood Assessment and Plan - Assessment and Plan (Free Text) Assessment: 81 y/o male patient with non-healing left foot TMA site secondary to PVD Plan: Patient seen and evaluated at bedside with attending Dr. Gaytan Applied betadine and DSD tot he left foot TMA site Labs and vitals were reviewed ( WBC: 7.9) Per Dr. Brown: will do IV abx treatment at this point and wait couple of days and will try bypass Wound cx is Gram (-) [facility] will continue to follow while patient remains in house
--- NOTE | 2016-12-13 14:00 | US ---
Renal ultrasound History: Chronic kidney disease. Comparison: None available. Technique: Real-time sonography was performed through the kidneys. Findings: Right kidney: 10.0 x 5.5 x 6.5 centimeters. Increased echogenicity of the renal cortex suggestive for medical renal disease. Midpole hypoechoic cysts including a 2.5 x 2.6 x 2.5 centimeter hypoechoic cyst with peripheral punctate echogenic calcification. Additional 1.4 x 1.6 x 1.4 centimeter hypoechoic more complex cyst with internal septation. Additional 1.9 x 1.6 x 1.9 centimeter hypoechoic cyst. No hydronephrosis. Visualized aorta is preserved. Left Kidney: 10.8 x 4.9 x 5.7 centimeters. Increased echogenicity of the renal cortex suggestive for medical renal disease. No calculi or hydronephrosis. Upper pole hypoechoic cyst measuring 4.6 x 4.5 x 5.1 centimeters. Additional midpole hypoechoic cyst measuring 3.5 x 4.1 x 3.3 centimeters. Additional lower pole hypoechoic cyst measuring 3.0 x 2.2 x 2.2 centimeters. Somewhat under distended urinary bladder. Visualized aorta is preserved. Impression: Bilateral renal cysts, some of which are mildly complex containing calcifications and septations as described above.
--- NOTE | 2016-12-13 14:45 | CT ---
PROCEDURE: CT Angiography Abdomen, Pelvis and Lower Extremity with Contrast HISTORY: Claudication COMPARISON: None. TECHNIQUE: Technique: CT angiography of the abdomen, pelvis and bilateral lower extremities performed in the arterial phase of enhancement. Coronal and sagittal reformats, and well as rotating MIP images of the vessels generated at the workstation. Intravenous contrast dose: 100 milliliters Visipaque 320 Radiation dose: Total exam DLP = 1836.14 MGy-cm. This CT exam was performed using one or more of the following dose reduction techniques: Automated exposure control, adjustment of the mA and/or kV according to patient size, and/or use of iterative reconstruction technique. FINDINGS: CT ANGIOGRAPHY: ABDOMINAL AORTA:: There is mild to severe calcific plaque throughout the abdominal aorta with no aneurysm or stenosis. 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 Poststenotic dilatation. Superior mesenteric artery: Mild stenosis at the origin of the superior mesenteric artery. Inferior mesenteric artery: Unremarkable. Renal arteries: Moderate stenosis at the origin of both renal arteries. PELVIC ARTERIES: Right Common Iliac: Unremarkable. Right External Iliac: Mild eccentric calcific plaque otherwise unremarkable Right Internal Iliac: Unremarkable. Left Common Iliac: Unremarkable. Left External Iliac: Mild eccentric calcific plaque but otherwise unremarkable Left Internal Iliac: Unremarkable. RIGHT LOWER EXTREMITY ARTERIES: Right Common Femoral: Mild eccentric calcified plaque otherwise patent. Right Superficial Femoral: Moderate calcific plaque throughout the SFA with areas moderate stenosis in the mid segment. Right Profunda Femoris: Unremarkable. Right Popliteal:Moderate stenosis with calcific plaque. Right Anterior Tibial: Unremarkable Right Tibioperoneal Trunk: calcified Right Posterior Tibial: calcific plaque throughout the posterior tibial artery. Occluded in multiple segments. Right Peroneal: Calcific throughout the peroneal artery which is believed to be occuded. Right dorsalis pedis : Unremarkable. LEFT LOWER EXTREMITY ARTERIES: Left Common Femoral: mild calcified plaque Left Superficial Femoral: Severe calcific plaque throughout the SFA. mid SFA stent extending to the distal SFA is patent. Left Profunda Femoris: Unremarkable. Left Popliteal: moderately stenotic with noncalcified plaque. Left Anterior Tibial: the anterior tibial artery is patent. Possible stenosis proximal segment. Left Tibioperoneal Trunk: Calcified and believed to be occluded. Left Posterior Tibial: Moderate calcific plaque and is occluded in multiple areas. Left Peroneal: occluded. Left Dorsalis pedis: Unremarkable. NON-ANGIOGRAPHIC ASPECT OF THE EXAM: LOWER THORAX: Unremarkable. LIVER: Unremarkable. No gross lesion or ductal dilatation. GALLBLADDER AND BILE DUCTS: Cholecystectomy PANCREAS: Unremarkable. No gross lesion or ductal dilatation. SPLEEN: Unremarkable. ADRENALS: Unremarkable. No mass. KIDNEYS AND URETERS: Multiple hypodense lesions throughout right and left kidneys. The largest lesions have attenuation consistent with cysts. No hydronephrosis. STOMACH AND BOWEL: Unremarkable. No obstruction. No gross mural thickening. APPENDIX: Normal appendix. PERITONEUM: Unremarkable. No free fluid. No free air. LYMPH NODES: A 14 millimeter soft tissue density in the gastrohepatic region may represent a lymph node. BLADDER: No bladder wall thickening. The prostate has mass effect on the bladder. REPRODUCTIVE: Prostate is enlarged measuring 6.7 centimeter AP x 5.4 centimeter transfers BONES: No acute fracture. OTHER FINDINGS: None. IMPRESSION: CTA ABDOMEN PELVIS: 1. Moderate calcific plaque throughout the abdominal aorta without stenosis. 2. 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 There is poststenotic dilatation. 3. There is moderate stenosis of the origin of the superior mesenteric artery. 4. Both renal arteries have moderate stenosis at the origin. LEFT LOWER EXTREMITY CT ANGIOGRAM: 1. Unremarkable common femoral artery. 2. Patent distal SFA stent. 3. Popliteal artery has moderate diffuse stenosis. 4. Left runoff shows patent anterior tibial artery. Posterior tibial artery and peroneal artery believed to be occluded. RIGHT LOWER EXTREMITY CTA: 1. Common femoral artery is unremarkable 2. Moderate calcific plaque throughout the SFA with there is a moderate stenosis in the mid SFA. 3. Moderate stenosis of popliteal artery 4. Unremarkable anterior tibial artery. Posterior tibial artery and peroneal artery believed to be occluded. NONVASCULAR FINDINGS: Prostate measures 6.7 centimeter AP x 5.4 centimeter transverse with mass effect on the urinary bladder.
--- NOTE | 2016-12-13 15:17 | CP.PCM.CON ---
History of Present Illness - History of Present Illness History of Present Illness: palliative consult Requested by Doctor Galindo Reason: goals of care discussion Patient is a 81 yo male admitted from home with non healing Left metatarsal toe , S/P amputation. The amputation took place about few weeks ago and patient was sent home. At home patient noticed some inflammatory changes and checked him self at ED for evaluation. The wound culture came back positive for Gram - rods and culture and sensitivity is pending. Pain is controlled with Ultram and rest is promoted. PMH: arthritis, CAD, DM, PVD, Soc. Hx: lives at home with his , has 6 adult children Fam. Hx: unknown Review of Systems - Constitutional Constitutional: absent: As Per HPI, Anorexia, Chills, Daytime Sleepiness, Excessive Sweating, Fatigue, Fever, Frequent Falls, Headache, Increased Appetite , Lethargy, Malaise, Night Sweats, Snoring, Sleep Apnea, Weight Gain, Weight Loss, Weakness, Other - EENT Eyes: absent: As Per HPI, Blind Spots, Blurred Vision, Change in Vision, Decreased Night Vision, Diplopia, Discharge, Dry Eye, Exophthalmos, Floaters, Irritation, Itchy Eyes, Loss of Peripheral Vision, Pain, Photophobia, Requires Corrective Lenses, Sees Flashes, Spots in Vision, Tunnel Vision, Other Visual Disturbances, Loss of Vision, Other Ears: absent: As Per HPI, Decreased Hearing, Ear Discharge, Ear Pain, Tinnitus, Abnormal Hearing, Disequilibrium, Dizziness, Other Nose/Mouth/Throat: absent: As Per HPI, Epistaxis, Nasal Congestion, Nasal Discharge, Nasal Obstruction, Nasal Trauma, Nose Pain, Post Nasal Drip, Sinus Pain, Sinus Pressure, Bleeding Gums, Change in Voice, Dental Pain, Dry Mouth, Dysphagia, Halitosis, Hoarsness, Lip Swelling, Mouth Lesions, Mouth Pain, Odynophagia, Sore Throat, Throat Swelling, Tongue Swelling, Facial Pain, Neck Pain, Neck Mass, Other Additional comments: Missing front lower teeth - Cardiovascular Cardiovascular: Leg Ulcers - Respiratory Respiratory: absent: As Per HPI, Cough, Dyspnea, Hemoptysis, Dyspnea on Exertion , Wheezing, Snoring, Stridor, Pain on Inspiration, Chest Congestion, Excessive Mucous Production, Change in Mucous Color, Pain with Coughing, Other - Gastrointestinal Gastrointestinal: absent: As Per HPI, Abdominal Pain, Belching, Bloating, Change in Bowel Habits, Change in Stool Character, Coffee Ground Emesis, Constipation, Cramping, Diarrhea, Dyspepsia, Dysphagia, Early Satiety, Excessive Flatus, Fecal Incontinence, Heartburn, Hematemesis, Hematochezia, Loose Stools, Melena, Nausea, Odynophagia, Temesmus, Vomiting, Other - Genitourinary Genitourinary: absent: As Per HPI, Change in Urinary Stream, Difficulty Urinating, Dysuria, Flank Pain, Hematuria, Pyuria, Nocturia, Urinary Incontinence, Urinary Frequency, Urinary Hesitance, Urinary Urgency, Voiding Freq/Small Amts, Freq UTI, Hx Renal/Bladder Calculi, Hx /Renal Surgery, Bladder Distension, Other - Musculoskeletal Musculoskeletal: Limited Range of Motion, Muscle Weakness, Radiating Pain into Limb - Integumentary Integumentary: Dry Skin, Wounds - Neurological Neurological: Memory Loss - Psychiatric Psychiatric: Memory Loss - Endocrine Endocrine: absent: As Per HPI, Change in Body Appearance, Change in Libido, Cold Intolorance, Deepening of Voice, Excessive Sweating, Fatigue, Flushing, Heat Intolorance, Increase in Ring/Shoe/Hat Size, Palpitations, Polydipsia, Polyphagia, Polyuria, Other - Hematologic/Lymphatic Hematologic: absent: As Per HPI, Easy Bleeding, Easy Bruising, Lymphadenopathy, Other Past Patient History - Infectious Disease Hx of Infectious Diseases: None - Tetanus Immunizations Tetanus Immunization: Unknown - Past Medical History & Family History Past Medical History?: Yes Past Family History: Reviewed and not pertinent - Past Social History Smoking Status: Former Smoker - CARDIAC Hx Hypercholesterolemia: Yes Hx Hypertension: Yes - PULMONARY Hx Respiratory Disorders: No - NEUROLOGICAL HX Cerebrovascular Accident: Yes - HEENT Hx HEENT Problems: Yes (glasses) Hx Cataracts: Yes (right) - RENAL Hx Chronic Kidney Disease: No - ENDOCRINE/METABOLIC Hx Hypothyroidism: Yes - HEMATOLOGICAL/ONCOLOGICAL Hx Blood Disorders: No - INTEGUMENTARY Hx Dermatological Problems: No - MUSCULOSKELETAL/RHEUMATOLOGICAL Hx Arthritis: Yes - GASTROINTESTINAL Hx Gastrointestinal Disorders: No - GENITOURINARY/GYNECOLOGICAL Hx Genitourinary Disorders: Yes (BPH) Hx Incontinence: Yes Hx Prostate Problems: Yes (prostate surgery in 2014) - PSYCHIATRIC Hx Substance Use: No - SURGICAL HISTORY Hx Cholecystectomy: Yes - ANESTHESIA Hx Anesthesia: Yes Hx Anesthesia Reactions: No Hx Malignant Hyperthermia: No Meds Allergies/Adverse Reactions: Allergies Allergy/AdvReac Type Severity Reaction Status Date / Time No Known Allergies Allergy Verified 12/11/16 18:17 - Medications Medications: Current Medications Amlodipine Besylate (Norvasc) 5 mg PO DAILY [facility] Aspirin (Aspirin Chewable) 81 mg PO DAILY [facility] Last Admin: 12/13/16 09:48 Dose: 81 mg Clopidogrel Bisulfate (Plavix) 75 mg PO DAILY [facility] Last Admin: 12/13/16 09:49 Dose: 75 mg Ferrous Sulfate (Feosol Liq) 300 mg PO BID [facility] Last Admin: 12/13/16 09:48 Dose: 300 mg Heparin Sodium (Porcine) (Heparin) 5,000 units SC Q12 [facility] Last Admin: 12/13/16 09:50 Dose: 5,000 units Hydralazine HCl (Apresoline) 10 mg IVP Q6H PRN PRN Reason: Systolic Blood Pressure Last Admin: 12/13/16 09:54 Dose: 10 mg Sodium Chloride (Sodium Chloride 0.9%) 1,000 mls @ 75 mls/hr IV .[id number] [facility] Insulin Aspart (Novolog) 0 unit SC [facility] PRN Reason: Protocol Last Admin: 12/13/16 07:30 Dose: Not Given Insulin Glargine (Lantus) 5 unit SC [facility] Last Admin: 12/12/16 22:10 Dose: 5 units Metoprolol Tartrate (Lopressor) 12.5 mg PO 0800,1800 [facility] Last Admin: 12/13/16 09:48 Dose: 12.5 mg Pantoprazole Sodium (Protonix Ec Tab) 40 mg PO DAILY [facility] Last Admin: 12/13/16 09:48 Dose: 40 mg Rosuvastatin Calcium (Crestor) 2.5 mg PO [facility] Last Admin: 12/12/16 22:09 Dose: 2.5 mg Tramadol HCl (Ultram) 25 mg PO TID PRN PRN Reason: Pain, moderate (4-7) Physical Exam - Constitutional Appears: No Acute Distress - Head Exam Head Exam: ATRAUMATIC, NORMAL INSPECTION, NORMOCEPHALIC - Eye Exam Eye Exam: EOMI, Normal appearance, PERRL Pupil Exam: NORMAL ACCOMODATION, PERRL - ENT Exam ENT Exam: Mucous Membranes Moist, Normal Exam - Neck Exam Neck exam: Positive for: Normal Inspection - Respiratory Exam Respiratory Exam: Decreased Breath Sounds, NORMAL BREATHING PATTERN - Cardiovascular Exam Cardiovascular Exam: +S1, +S2 - GI/Abdominal Exam GI & Abdominal Exam: Normal Bowel Sounds, Soft - Rectal Exam Rectal Exam: Deferred - Exam Exam: NORMAL INSPECTION - Extremities Exam Additional comments: Left foot with dressing, tender to touch - Back Exam Back exam: NORMAL INSPECTION - Neurological Exam Neurological exam: Alert, Altered - Psychiatric Exam Psychiatric exam: Flat Affect - Skin Skin Exam: Normal Color, Warm Results - Vital Signs Recent Vital Signs: Last Vital Signs Temp 97.3 F L 12/13/16 07:30 Pulse 80 12/13/16 07:30 Resp 18 12/13/16 07:30 BP 172/71 H 12/13/16 07:30 Pulse Ox 97 12/13/16 07:30 - Labs Result Diagrams: 12/13/16 08:47 12/13/16 08:47 Labs: Laboratory Results - last 24 hr 12/12/16 12/12/16 12/13/16 16:27 21:34 08:47 WBC 7.9 RBC 5.03 Hgb 11.8 L Hct 37.8 MCV 75.1 L MCH 23.5 L MCHC 31.3 L RDW 19.5 H Plt Count 213 MPV 8.1 Neut % (Auto) 46.1 L Lymph % (Auto) 33.2 Marshall % (Auto) 11.9 H Eos % (Auto) 8.0 H Baso % (Auto) 0.8 Neut # 3.6 Lymph # 2.6 Marshall # 0.9 H Eos # 0.6 Baso # 0.1 Sodium Potassium Chloride Carbon Dioxide Anion Gap BUN Creatinine Est GFR ( Amer) Est GFR (Non-Af Amer) POC Glucose (mg/dL) 115 H 111 H Random Glucose Calcium Magnesium Total Bilirubin AST ALT Alkaline Phosphatase Total Protein Albumin Globulin Albumin/Globulin Ratio Urine Color Urine Clarity Urine pH Ur Specific Ira Urine Protein Urine Glucose (UA) Urine Ketones Urine Blood Urine Nitrate Urine Bilirubin Urine Urobilinogen Ur Leukocyte Esterase Urine WBC (Auto) Urine RBC (Auto) Ur Squamous Epith Cells Urine Bacteria 12/13/16 12/13/16 12/13/16 08:47 13:15 13:41 WBC RBC Hgb Hct MCV MCH MCHC RDW Plt Count MPV Neut % (Auto) Lymph % (Auto) Marshall % (Auto) Eos % (Auto) Baso % (Auto) Neut # Lymph # Marshall # Eos # Baso # Sodium 138 Potassium 3.9 Chloride 102 Carbon Dioxide 25 Anion Gap 16 BUN 23 H Creatinine 1.2 Est GFR ( Amer) > 60 Est GFR (Non-Af Amer) 58 POC Glucose (mg/dL) 113 H Random Glucose 116 H Calcium 9.1 Magnesium 1.7 Total Bilirubin 0.5 AST 24 ALT 27 Alkaline Phosphatase 112 Total Protein 8.3 Albumin 3.9 Globulin 4.4 H Albumin/Globulin Ratio 0.9 L Urine Color Yellow Urine Clarity Clear Urine pH 7.0 Ur Specific Ira 1.039 H Urine Protein 1+ H Urine Glucose (UA) Normal Urine Ketones Negative Urine Blood Negative Urine Nitrate Negative Urine Bilirubin Negative Urine Urobilinogen Normal Ur Leukocyte Esterase Neg Urine WBC (Auto) 1 Urine RBC (Auto) 1 Ur Squamous Epith Cells < 1 Urine Bacteria Rare Assessment & Plan - Assessment and Plan (Free Text) Assessment: Palliative consult Code status Full Code, no advance directive on chart, PPS 30% I reviewed medical records, all diagnostic studies, examined and interviewed patient in the bed. Family meeting scheduled with patient's son Mr. Maylin Encinas for tomorrow am for goals of care discussion. Patient is alert, oriented to self and place. Patient appears forgetful. In the course of conversation I suggested 3 times to the patient the need to report his pain to nurse for the pain medication. Patient would go back numerous times asking the same question about the pain over and over. Patient' son confirmed the same concern, in the phone conversation. Patient denied pain at rest, but reacted in pain upon slight touch of the left foot. I reinforced teaching on available pain meds. Goals of care discussion was not possible due to patient's inability to fully participate in it. I reached out to his son Huang and we scheduled family meeting for 11:30 am. Impression * Patient is with complex medical Hx and acute debility secondary to left foot infection, S/P left MTA amputation * Patient is forgetful and unable to fully carry out goals of care discussion * Left foot pain increases with mobility/touching Suggestion * Evaluate pain Q shift and offer Ultram as ordered * promote safety * Family meeting tomorrow for goals of care discussin Thank you very much for consulting Palliative Care
--- NOTE | 2016-12-13 16:41 | CON ---
DATE: 12/13/2016 PAST MEDICAL HISTORY: The patient is an 81-year-old man, who has a past medical history of diabetes mellitus type 2, hypertension, coronary artery disease, CHF, and he presents with drainage of his lef t TMA site. He had a recent TMA, which was nonhealing. He came to the Emergency Department for the nonhealing wounds of his TMA on the left foot. He was discharged on 10/19/2016 after the TMA and now he is found to have an elevated creatinine and renal consult was requested. PAST MEDICAL HISTORY: Again is that of diabetes mellitus type 2, hypertension, coronary artery disea se, CHF, dyslipidemia, hypothyroidism and chronic kidney disease. PAST SURGICAL HISTORY: Cholecystectomy and aforementioned left TMA. SOCIAL HISTORY: Former smoker. No history of alcohol abuse or illicit drug use. FAMILY HISTORY: Negative for chronic kidney disease. REVIEW OF SYSTEMS: Significant for drainage of the left foot, decreased ability to ambulate. No dys uria or gross hematuria. No nausea, vomiting. No fevers, no chills, no dyspnea on exertion, no ches t pain. No new rashes. Other review of systems are all negative. PHYSICAL EXAMINATION: GENERAL: He is a well-developed man in no acute distress. VITAL SIGNS: Blood pressure was 172/71, temperature 97.3, pulse 80, pulse ox is 97%. HEENT: Anicteric. Mouth was clear. NECK: No JVD. LUNGS: Lung hess were clear. HEART: Regular rhythm, no murmur. ABDOMEN: Soft, benign. No mass or organomegaly. EXTREMITIES: No peripheral edema. Left TMA site was bandaged. NEUROLOGIC: No focal deficits. LABORATORY DATA: His blood work shows an initial creatinine of 1.4. Repeat creatinine is 1.2 with GFR of 68. Electrolytes were unremarkable. Hemoglobin was 11.8. Chest x-ray did not show any infiltra akin. IMPRESSION: The patient has chronic kidney disease stage III, possibly diabetic nephropathy, hyperte nsion, diabetes mellitus type 2, peripheral vascular disease, coronary artery disease, history of hyp othyroidism and the recommendations would be a renal ultrasound, check urine for proteinuria, increas e the blood pressure medications and IV saline prior to the angiogram to prevent further renal diseas e. We will follow up. Wojciech Carmona MD cc: [id number] TT: 12/13/2016 16:40:43 Confirmation # [id number] Dictation # [id number] ln
--- NOTE | 2016-12-13 18:47 | CP.PCM.CON ---
History of Present Illness - History of Present Illness History of Present Illness: 81M recently discharged from on 10/19/16 who was sent by Dr. Gaytan for non- healing left TMA. During pt's last admission in September he underwent an angio with Dr. Brown with atherectomy of left SFA, balloon angioplasty and stent in distal SFA. He subsequently underwent a TMA with Dr. Gaytan and was sent to [facility] with a PICC for alf ABX. Pt continues to have a non-healing ulcer. Pt denies any pain in his foot or legs but does admit to some drainage from the ulcer that he states has not been purulent. Pt is able to ambulate with a walker. Denies F/C, chest pain or SOB. Denies other complaints at this time. patient gets confused at times and pulls out hi IV's PMHx: CAD, CHF, DM, HTN, HLD, hypothyroidism, arthritis PSHx: cholecystectomy, L TMA SocialHx: former PPD smoker, quit 6 months ago. Denies EtOH/drugs NKDA Review of Systems - Constitutional Constitutional: As Per HPI - EENT Eyes: absent: As Per HPI, Blind Spots, Blurred Vision, Change in Vision, Decreased Night Vision, Diplopia, Discharge, Dry Eye, Exophthalmos, Floaters, Irritation, Itchy Eyes, Loss of Peripheral Vision, Pain, Photophobia, Requires Corrective Lenses, Sees Flashes, Spots in Vision, Tunnel Vision, Other Visual Disturbances, Loss of Vision, Other Ears: absent: As Per HPI, Decreased Hearing, Ear Discharge, Ear Pain, Tinnitus, Abnormal Hearing, Disequilibrium, Dizziness, Other Nose/Mouth/Throat: absent: As Per HPI, Epistaxis, Nasal Congestion, Nasal Discharge, Nasal Obstruction, Nasal Trauma, Nose Pain, Post Nasal Drip, Sinus Pain, Sinus Pressure, Bleeding Gums, Change in Voice, Dental Pain, Dry Mouth, Dysphagia, Halitosis, Hoarsness, Lip Swelling, Mouth Lesions, Mouth Pain, Odynophagia, Sore Throat, Throat Swelling, Tongue Swelling, Facial Pain, Neck Pain, Neck Mass, Other - Cardiovascular Cardiovascular: absent: As Per HPI, Acrocyanosis, Chest Pain, Chest Pain at Rest , Chest Pain with Activity, Claudication, Diaphoresis, Dyspnea, Dyspnea on Exertion, Edema, Irregular Heart Rhythm, Pain Radiating to Arm/Neck/Jaw, Leg Edema, Leg Ulcers, Lightheadedness, Orthopnea, Palpitations, Paroxysmal Nocturnal Dyspnea, Pedal Edema, Radiating Pain, Rapid Heart Rate, Slow Heart Rate, Syncope, Other - Respiratory Respiratory: absent: As Per HPI, Cough, Dyspnea, Hemoptysis, Dyspnea on Exertion , Wheezing, Snoring, Stridor, Pain on Inspiration, Chest Congestion, Excessive Mucous Production, Change in Mucous Color, Pain with Coughing, Other - Gastrointestinal Gastrointestinal: absent: As Per HPI, Abdominal Pain, Belching, Bloating, Change in Bowel Habits, Change in Stool Character, Coffee Ground Emesis, Constipation, Cramping, Diarrhea, Dyspepsia, Dysphagia, Early Satiety, Excessive Flatus, Fecal Incontinence, Heartburn, Hematemesis, Hematochezia, Loose Stools, Melena, Nausea, Odynophagia, Temesmus, Vomiting, Other - Genitourinary Genitourinary: absent: As Per HPI, Change in Urinary Stream, Difficulty Urinating, Dysuria, Flank Pain, Hematuria, Pyuria, Nocturia, Urinary Incontinence, Urinary Frequency, Urinary Hesitance, Urinary Urgency, Voiding Freq/Small Amts, Freq UTI, Hx Renal/Bladder Calculi, Hx /Renal Surgery, Bladder Distension, Other - Musculoskeletal Musculoskeletal: As Per HPI, Abnormal Gait - Integumentary Integumentary: As Per HPI, Skin Pain, Wounds - Neurological Neurological: As Per HPI - Psychiatric Psychiatric: absent: As Per HPI, Abnormal Sleep Pattern, Anhedonia, Anxiety, Auditory Hallucinations, Behavioral Changes, Change in Appetite, Change in Libido, Confusion, Depression, Difficulty Concentrating, Hallucinations, Homicidal Ideation, Hopelessness, Irritability, Memory Loss, Mood Swings, Panic Attacks, Paranoia, Suicidal Ideation, Visual Hallucinations, Tactile Hallucinations, Other - Endocrine Endocrine: absent: As Per HPI, Change in Body Appearance, Change in Libido, Cold Intolorance, Deepening of Voice, Excessive Sweating, Fatigue, Flushing, Heat Intolorance, Increase in Ring/Shoe/Hat Size, Palpitations, Polydipsia, Polyphagia, Polyuria, Other - Hematologic/Lymphatic Hematologic: absent: As Per HPI, Easy Bleeding, Easy Bruising, Lymphadenopathy, Other Past Patient History - Infectious Disease Hx of Infectious Diseases: None - Tetanus Immunizations Tetanus Immunization: Unknown - Past Medical History & Family History Past Medical History?: Yes Past Family History: Reviewed and not pertinent - Past Social History Smoking Status: Former Smoker - CARDIAC Hx Hypercholesterolemia: Yes Hx Hypertension: Yes - PULMONARY Hx Respiratory Disorders: No - NEUROLOGICAL HX Cerebrovascular Accident: Yes - HEENT Hx HEENT Problems: Yes (glasses) Hx Cataracts: Yes (right) - RENAL Hx Chronic Kidney Disease: No - ENDOCRINE/METABOLIC Hx Hypothyroidism: Yes - HEMATOLOGICAL/ONCOLOGICAL Hx Blood Disorders: No - INTEGUMENTARY Hx Dermatological Problems: No - MUSCULOSKELETAL/RHEUMATOLOGICAL Hx Arthritis: Yes - GASTROINTESTINAL Hx Gastrointestinal Disorders: No - GENITOURINARY/GYNECOLOGICAL Hx Genitourinary Disorders: Yes (BPH) Hx Incontinence: Yes Hx Prostate Problems: Yes (prostate surgery in 2013) - PSYCHIATRIC Hx Substance Use: No - SURGICAL HISTORY Hx Cholecystectomy: Yes - ANESTHESIA Hx Anesthesia: Yes Hx Anesthesia Reactions: No Hx Malignant Hyperthermia: No Meds Allergies/Adverse Reactions: Allergies Allergy/AdvReac Type Severity Reaction Status Date / Time No Known Allergies Allergy Verified 12/11/16 18:17 - Medications Medications: Current Medications Amlodipine Besylate (Norvasc) 5 mg PO DAILY [facility] Last Admin: 12/13/16 16:22 Dose: 5 mg Aspirin (Aspirin Chewable) 81 mg PO DAILY [facility] Last Admin: 12/13/16 09:48 Dose: 81 mg Clopidogrel Bisulfate (Plavix) 75 mg PO DAILY [facility] Last Admin: 12/13/16 09:49 Dose: 75 mg Docusate Sodium (Colace) 100 mg PO BID [facility] Last Admin: 12/13/16 17:50 Dose: 100 mg Famotidine (Pepcid) 20 mg PO DAILY [facility] Ferrous Sulfate (Feosol Liq) 300 mg PO BID [facility] Last Admin: 12/13/16 17:53 Dose: 300 mg Heparin Sodium (Porcine) (Heparin) 5,000 units SC Q12 [facility] Last Admin: 12/13/16 09:50 Dose: 5,000 units Hydralazine HCl (Apresoline) 10 mg IVP Q6H PRN PRN Reason: Systolic Blood Pressure Last Admin: 12/13/16 09:54 Dose: 10 mg Sodium Chloride (Sodium Chloride 0.9%) 1,000 mls @ 75 mls/hr IV .[id number] [facility] Insulin Aspart (Novolog) 0 unit SC ACHS [facility] PRN Reason: Protocol Last Admin: 12/13/16 17:51 Dose: 1 unit Insulin Glargine (Lantus) 10 unit SC [facility] Levothyroxine Sodium (Synthroid) 100 mcg PO DAILY@0630 [facility] Metoprolol Tartrate (Lopressor) 12.5 mg PO 0800,1800 [facility] Last Admin: 12/13/16 17:53 Dose: 12.5 mg Rosuvastatin Calcium (Crestor) 2.5 mg PO HS [facility] Last Admin: 12/12/16 22:09 Dose: 2.5 mg Tramadol HCl (Ultram) 25 mg PO TID PRN PRN Reason: Pain, moderate (4-7) Physical Exam - Constitutional Appears: Non-toxic, Cachectic, Chronically Ill - Head Exam Head Exam: ATRAUMATIC, NORMAL INSPECTION, NORMOCEPHALIC - Eye Exam Eye Exam: EOMI, PERRL. absent: Scleral icterus - ENT Exam ENT Exam: Mucous Membranes Dry, Normal External Ear Exam - Neck Exam Neck exam: Negative for: Lymphadenopathy, Thyromegaly - Respiratory Exam Respiratory Exam: Decreased Breath Sounds, Clear to Auscultation Bilateral - Cardiovascular Exam Cardiovascular Exam: REGULAR RHYTHM, +S1, +S2 - GI/Abdominal Exam GI & Abdominal Exam: Diminished Bowel Sounds, Soft. absent: Tenderness - Rectal Exam Rectal Exam: Deferred - Extremities Exam Extremities exam: Positive for: pedal edema. Negative for: calf tenderness, tenderness, pedal pulses present Additional comments: drainage from left foot on dorsal aspect with some necrosis and ulceration present on dorsum of left foot laterally - Back Exam Back exam: absent: CVA tenderness (L), CVA tenderness (R) - Neurological Exam Neurological exam: Alert, CN II-XII Intact, Oriented x3, Reflexes Normal - Psychiatric Exam Psychiatric exam: Normal Mood - Skin Skin Exam: Dry Results - Vital Signs Recent Vital Signs: Last Vital Signs Temp 98 F 12/13/16 15:00 Pulse 89 12/13/16 15:00 Resp 20 12/13/16 15:00 BP 134/75 12/13/16 15:00 Pulse Ox 97 12/13/16 15:00 - Labs Result Diagrams: 12/13/16 08:47 12/13/16 08:47 Labs: Laboratory Results - last 24 hr 12/12/16 12/13/16 12/13/16 21:34 08:47 08:47 WBC 7.9 RBC 5.03 Hgb 11.8 L Hct 37.8 MCV 75.1 L MCH 23.5 L MCHC 31.3 L RDW 19.5 H Plt Count 213 MPV 8.1 Neut % (Auto) 46.1 L Lymph % (Auto) 33.2 [place] % (Auto) 11.9 H Eos % (Auto) 8.0 H Baso % (Auto) 0.8 Neut # 3.6 Lymph # 2.6 [place] # 0.9 H Eos # 0.6 Baso # 0.1 Sodium 138 Potassium 3.9 Chloride 102 Carbon Dioxide 25 Anion Gap 16 BUN 23 H Creatinine 1.2 Est GFR ( Amer) > 60 Est GFR (Non-Af Amer) 58 POC Glucose (mg/dL) 111 H Random Glucose 116 H Calcium 9.1 Magnesium 1.7 Total Bilirubin 0.5 AST 24 ALT 27 Alkaline Phosphatase 112 Total Protein 8.3 Albumin 3.9 Globulin 4.4 H Albumin/Globulin Ratio 0.9 L Urine Color Urine Clarity Urine pH Ur Specific Pinch Urine Protein Urine Glucose (UA) Urine Ketones Urine Blood Urine Nitrate Urine Bilirubin Urine Urobilinogen Ur Leukocyte Esterase Urine WBC (Auto) Urine RBC (Auto) Ur Squamous Epith Cells Urine Bacteria 12/13/16 12/13/16 12/13/16 13:15 13:41 16:48 WBC RBC Hgb Hct MCV MCH MCHC RDW Plt Count MPV Neut % (Auto) Lymph % (Auto) [place] % (Auto) Eos % (Auto) Baso % (Auto) Neut # Lymph # [place] # Eos # Baso # Sodium Potassium Chloride Carbon Dioxide Anion Gap BUN Creatinine Est GFR ( Amer) Est GFR (Non-Af Amer) POC Glucose (mg/dL) 113 H 193 H Random Glucose Calcium Magnesium Total Bilirubin AST ALT Alkaline Phosphatase Total Protein Albumin Globulin Albumin/Globulin Ratio Urine Color Yellow Urine Clarity Clear Urine pH 7.0 Ur Specific Pinch 1.039 H Urine Protein 1+ H Urine Glucose (UA) Normal Urine Ketones Negative Urine Blood Negative Urine Nitrate Negative Urine Bilirubin Negative Urine Urobilinogen Normal Ur Leukocyte Esterase Neg Urine WBC (Auto) 1 Urine RBC (Auto) 1 Ur Squamous Epith Cells < 1 Urine Bacteria Rare Assessment & Plan (1) Infection of metatarsal as complication of amputation Status: Acute - Assessment and Plan (Free Text) Assessment: nonhealing ulcer left foot sp TMA- ongoing om to be considered consider MRI left foot Hx of ESBL carriage in past- consider coverage for this consider debridement once cleared by vascular ultimately may need BKA
[2016-12-13] MEDS: (Lantus) Insulin Glargine, Recombinant SC SCH (21:54)
[2016-12-13] MEDS: Meropenem 500 MG in Sodium Chloride 0.9% 100 ML IVPB SCH (21:54)
[2016-12-13] MEDS: Rosuvastatin Calcium 2.5 mg Tab PO SCH (21:54)
[2016-12-14] MEDS: Meropenem 500 MG in Sodium Chloride 0.9% 100 ML IVPB SCH ×3 (06:10→21:53)
[2016-12-14] MEDS: Levothyroxine 100 MCG TAB PO SCH (06:10)
--- NOTE | 2016-12-14 07:10 | CP.PCM.PN ---
Subjective - Date & Time of Evaluation Date of Evaluation: 12/14/16 Time of Evaluation: 07:10 - Subjective Subjective: Patient seen and examined at bedside. Patient does not recall me but is oriented to self and time. He mainly is answering questions with "yes or no" response. Patient denies pain to his lower extremities as well as fever and chills. When asked if he knows why he is hospitalized he responds, "because of foot wound." Patient states he is eating well. He also reports no issue with urination and denies constipation and diarrhea. Patient also denies chest pain, shortness of breath, palpitations, abdominal pain, nausea and vomiting. Family meeting to take place with patients son regarding goals of care this afternoon. Objective - Vital Signs/Intake and Output Vital Signs (last 24 hours): Temp Pulse Resp BP Pulse Ox 98.0 F 68 20 156/66 H 98 12/13/16 23:15 12/13/16 23:15 12/13/16 23:15 12/13/16 23:15 12/13/16 23:15 Intake and Output: 12/14/16 12/14/16 06:59 18:59 Intake Total 720 Balance 720 - Medications Medications: Current Medications Amlodipine Besylate (Norvasc) 5 mg PO DAILY [facility] Last Admin: 12/13/16 16:22 Dose: 5 mg Aspirin (Aspirin Chewable) 81 mg PO DAILY [facility] Last Admin: 12/13/16 09:48 Dose: 81 mg Clopidogrel Bisulfate (Plavix) 75 mg PO DAILY [facility] Last Admin: 12/13/16 09:49 Dose: 75 mg Docusate Sodium (Colace) 100 mg PO BID [facility] Last Admin: 12/13/16 17:50 Dose: 100 mg Famotidine (Pepcid) 20 mg PO DAILY [facility] Ferrous Sulfate (Feosol Liq) 300 mg PO BID [facility] Last Admin: 12/13/16 17:53 Dose: 300 mg Heparin Sodium (Porcine) (Heparin) 5,000 units SC Q12 [facility] Last Admin: 12/13/16 21:54 Dose: 5,000 units Hydralazine HCl (Apresoline) 10 mg IVP Q6H PRN PRN Reason: Systolic Blood Pressure Last Admin: 12/13/16 09:54 Dose: 10 mg Sodium Chloride (Sodium Chloride 0.9%) 1,000 mls @ 75 mls/hr IV .[id number] [facility] Meropenem 500 mg/ Sodium (Chloride) 100 mls @ 100 mls/hr IVPB Q8 [facility] Last Admin: 12/14/16 06:10 Dose: 100 mls/hr Insulin Aspart (Novolog) 0 unit SC ACHS [facility] PRN Reason: Protocol Last Admin: 12/13/16 21:22 Dose: Not Given Insulin Glargine (Lantus) 10 unit SC [facility] Last Admin: 12/13/16 21:54 Dose: 10 units Levothyroxine Sodium (Synthroid) 100 mcg PO DAILY@0630 [facility] Last Admin: 12/14/16 06:10 Dose: 100 mcg Metoprolol Tartrate (Lopressor) 12.5 mg PO 0800,1800 [facility] Last Admin: 12/13/16 17:53 Dose: 12.5 mg Rosuvastatin Calcium (Crestor) 2.5 mg PO [facility] Last Admin: 12/13/16 21:54 Dose: 2.5 mg Tramadol HCl (Ultram) 25 mg PO TID PRN PRN Reason: Pain, moderate (4-7) - Labs Labs: 12/13/16 08:47 12/13/16 08:47 PT 11.3 SECONDS (9.7-12.2) 12/11/16 19:52 INR 1.0 12/11/16 19:52 APTT 31 SECONDS (21-34) D 12/12/16 09:25 - Constitutional Appears: Non-toxic, No Acute Distress - Head Exam Head Exam: ATRAUMATIC, NORMAL INSPECTION, NORMOCEPHALIC - Eye Exam Eye Exam: EOMI, Normal appearance - ENT Exam ENT Exam: Mucous Membranes Moist - Neck Exam Neck Exam: Full ROM, Normal Inspection - Cardiovascular Exam Cardiovascular Exam: +S1, +S2. absent: Bradycardia, Tachycardia - GI/Abdominal Exam GI & Abdominal Exam: Soft, Normal Bowel Sounds. absent: Tenderness - Extremities Exam Extremities Exam: Tenderness Additional comments: tenderness to palpation of left MTA dressing c/d/i diminished pulse to RLE - Neurological Exam Neurological Exam: Alert, Awake. absent: Oriented x3 - Psychiatric Exam Psychiatric exam: Flat Affect Assessment and Plan - Assessment and Plan (Free Text) Assessment: Nonhealing left MTA likely secondary to PAD -Podiatry Dr. Gaytan consulted. Podiatry plans to follow while patient is hospitalized. -Wound culture: Pseudomononas Aeruginosa, Gram positive Cocci -Currently on Meropenem 500 mg IVPB Q8h [facility] -Vascular surgeon Dr. Brown consulted. Plans for angiography to evaluate for PAD. -Abdominal Angiography: CTA ABDOMEN PELVIS:1. Moderate calcific plaque throughout the abdominal aorta without stenosis. 2. 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 There is poststenotic dilatation. 3. There is moderate stenosis of the origin of the superior mesenteric artery. 4. Both renal arteries have moderate stenosis at the origin. LEFT LOWER EXTREMITY CT ANGIOGRAM:1. Unremarkable common femoral artery. 2. Patent distal SFA stent. 3. Popliteal artery has moderate diffuse stenosis. 4. Left runoff shows patent anterior tibial artery. Posterior tibial artery and peroneal artery believed to be occluded. RIGHT LOWER EXTREMITY CTA:1. Common femoral artery is unremarkable 2. Moderate calcific plaque throughout the SFA with there is a moderate stenosis in the mid SFA. 3. Moderate stenosis of popliteal artery 4. Unremarkable anterior tibial artery. Posterior tibial artery and peroneal artery believed to be occluded. NONVASCULAR FINDINGS: Prostate measures 6.7 centimeter AP x 5.4 centimeter transverse with mass effect on the urinary bladder. -ASA 81mg po daily -Plavix 75mg po daily -Tramadol 25mg po tid prn pain On last visit: Arterial doppler: 1.) Occluded left posterior tibial artery. No flow detected throughout the vessel. 2.) Continuous monophasic waveforms, beginning at left superficial femoral artery level. Calcific plaques notted throughout bilateral lower extremities. Slightly increased velocities due to vessel narrowing. No evidence of arterial occlusions of bilateral extremity arteries above the knee. (see full report) s/p angiogram - aortofemoral angiogram via right groin, selective angiogram left femoral artery. pathway atherectomy. 40% proximal sfa occlusion and 100% mid and distal sfa occlusion (see full report). -L foot does not look infected- hold abx Bacteremia Blood cx: Corynebacterium species ID, Dr. Galindo, consulted. Help appreciated. CHF NYHA Class I -Hold home lasix 20 mg PO daily secondary to acute on chronic kidney injury -CXR: No evidence of new infiltrate or consolidation in the lungs. No significant pleural effusion or pneumothorax apparent. CAD -ASA 81mg PO daily -Plavix 75mg PO daily DM2 -HgbA1c 7.2 -Accucheck -RISS -Lantus 10units HS - confirmed by pharmacy Hypercholesterolemia -LDL 125, HDL 24, Cholesterol 187, Triglycerides 208 -Crestor 2.5mg po hs Hypertension -Hydralazine 10mg ivp q6 prn SBP > 160 -Losartan 50mg po daily -Metprolol 12.5mg po bid Acute on chronic renal insufficiency -Improving -BUN/CR 20/1.1 -Continue Normal saline 75cc/hr IV -Nephrology, Dr. Carmona consulted. Recommends IV fluids prior to angio and close renal function follow-up post procedure -Renal US: Bilateral renal cysts, some of which are mildly complex containing calcifications and septations (see full report) -Per Dr. Carmona, may need kidney CT in future to evaluate complex cysts Hx of Iron Deficiency Anemia -Feosol 300mg po bid Hx of Hypothyroidism -Continue Synthroid 100 mcg po AM -TSH 6.33, Free T4 0.96 PPX -Heparin 5000u sc q12 -Protonix 40mg po daily -SCD c/i -PT/OT -Heart healthy moderate consistent carb renal diet -Palliative Care Consult- Full Code. Plan to discuss goals of care with son with [employer], Eliana Escudero, however, son never showed up today.
[2016-12-14] MEDS: (Novolog) Insulin Aspart, Recombinant 100 u/ml 10 ml vial SC SCH ×4 (07:30→21:55)
[2016-12-14 08:20] LABS: MEAN CELL VOLUME 75.9 fL (80.0-94.0); MEAN CORPUSCULAR HEMOGLOBIN 23.7 pg (27.0-31.0); MEAN CORPUSCULAR HGB CONC 31.2 g/dL (33.0-37.0); MEAN PLATELET VOLUME 8.5 fL (7.2-11.7); RED CELL DISTRIBUTION WIDTH 19.3 % (11.5-14.5); WHITE BLOOD COUNT 8.5 K/uL (4.8-10.8)
[2016-12-14 09:42] LABS: CHLORIDE 109 mmol/L (98-107); POTASSIUM 3.5 mmol/L (3.6-5.2); SODIUM 140 mmol/L (132-148)
[2016-12-14 09:44] LABS: GFR AFRICAN-AMERICAN > 60
[2016-12-14 09:45] LABS: BLOOD UREA NITROGEN 20 mg/dL (9-20); CARBON DIOXIDE 22 mmol/L (22-30); GLUCOSE,RANDOM 86 mg/dL (75-110); PHOSPHOROUS 2.9 mg/dL (2.5-4.5)
[2016-12-14 09:46] LABS: CALCIUM 8.6 mg/dl (8.6-10.4); MAGNESIUM 1.7 mg/dL (1.6-2.3)
[2016-12-14] MEDS: Ferrous Sulfate 300 mg/5 mL Liq UD PO SCH ×2 (10:06→18:08)
--- NOTE | 2016-12-14 13:29 | CP.PCM.PN ---
Subjective - Date & Time of Evaluation Date of Evaluation: 12/14/16 Time of Evaluation: 13:26 - Subjective Subjective: Consult done 12/13 Received IV saline post angio for CKD Creat down to 1.1 ARB stopped Renal US shows echogenic kidneys; multiple cysts- some possibly complex Feels same. No SOB, no CPs,n,f,diarrhea, chills Objective - Vital Signs/Intake and Output Vital Signs (last 24 hours): Temp Pulse Resp BP Pulse Ox 98.0 F 68 20 156/66 H 98 12/13/16 23:15 12/13/16 23:15 12/13/16 23:15 12/13/16 23:15 12/13/16 23:15 Intake and Output: 12/14/16 12/14/16 06:59 18:59 Intake Total 720 Balance 720 - Medications Medications: Current Medications Amlodipine Besylate (Norvasc) 5 mg PO DAILY [facility] Last Admin: 12/14/16 10:05 Dose: 5 mg Aspirin (Aspirin Chewable) 81 mg PO DAILY [facility] Last Admin: 12/14/16 10:05 Dose: 81 mg Clopidogrel Bisulfate (Plavix) 75 mg PO DAILY [facility] Last Admin: 12/14/16 10:09 Dose: 75 mg Docusate Sodium (Colace) 100 mg PO BID [facility] Last Admin: 12/14/16 10:05 Dose: 100 mg Famotidine (Pepcid) 20 mg PO DAILY [facility] Last Admin: 12/14/16 10:09 Dose: 20 mg Ferrous Sulfate (Feosol Liq) 300 mg PO BID [facility] Last Admin: 12/14/16 10:06 Dose: 300 mg Heparin Sodium (Porcine) (Heparin) 5,000 units SC Q12 [facility] Last Admin: 12/14/16 10:08 Dose: 5,000 units Hydralazine HCl (Apresoline) 10 mg IVP Q6H PRN PRN Reason: Systolic Blood Pressure Last Admin: 12/13/16 09:54 Dose: 10 mg Sodium Chloride (Sodium Chloride 0.9%) 1,000 mls @ 75 mls/hr IV .[id number] [facility] Meropenem 500 mg/ Sodium (Chloride) 100 mls @ 100 mls/hr IVPB Q8 [facility] Last Admin: 12/14/16 06:10 Dose: 100 mls/hr Insulin Aspart (Novolog) 0 unit SC ACHS [facility] PRN Reason: Protocol Last Admin: 12/14/16 07:30 Dose: Not Given Insulin Glargine (Lantus) 10 unit SC [facility] Last Admin: 12/13/16 21:54 Dose: 10 units Levothyroxine Sodium (Synthroid) 100 mcg PO DAILY@0630 [facility] Last Admin: 12/14/16 06:10 Dose: 100 mcg Metoprolol Tartrate (Lopressor) 12.5 mg PO 0800,1800 [facility] Last Admin: 12/14/16 09:00 Dose: 12.5 mg Rosuvastatin Calcium (Crestor) 2.5 mg PO HS [facility] Last Admin: 12/13/16 21:54 Dose: 2.5 mg Tramadol HCl (Ultram) 25 mg PO TID PRN PRN Reason: Pain, moderate (4-7) - Labs Labs: 12/14/16 08:23 12/14/16 07:57 PT 11.3 SECONDS (9.7-12.2) 12/11/16 19:52 INR 1.0 12/11/16 19:52 APTT 31 SECONDS (21-34) D 12/12/16 09:25 - Constitutional Appears: No Acute Distress, Chronically Ill - Head Exam Head Exam: ATRAUMATIC, NORMAL INSPECTION - Eye Exam Eye Exam: EOMI, Normal appearance - Neck Exam Neck Exam: Normal Inspection. absent: Tenderness - Respiratory Exam Respiratory Exam: Rhonchi, NORMAL BREATHING PATTERN - Cardiovascular Exam Cardiovascular Exam: REGULAR RHYTHM, +S1 - GI/Abdominal Exam GI & Abdominal Exam: Soft. absent: Tenderness - Extremities Exam Extremities Exam: Normal Inspection. absent: Tenderness - Neurological Exam Neurological Exam: Alert, CN II-XII Intact - Skin Skin Exam: Dry, Warm Assessment and Plan (1) CKD (chronic kidney disease) stage 3, GFR 30-59 ml/min Status: Acute (2) PVD (peripheral vascular disease) Status: Acute (3) Diabetes mellitus Status: Chronic - Assessment and Plan (Free Text) Plan: Replete K Serial chemistries Stop IV fluids soon Eventually might need CT kidneys to evaluate complex cysts
[2016-12-14] MEDS ORDERED: Potassium Chloride 20 mEq/15 ml LIQ UD PO SCH (13:45)
[2016-12-14] MEDS ORDERED: Potassium Chloride 20 mEq/15 ml LIQ UD PO ONE (13:45)
[2016-12-14] MEDS: Sodium Chloride 0.9% 1,000 ML IV SCH (14:03)
--- NOTE | 2016-12-14 14:43 | CP.PCM.PN ---
Subjective - Date & Time of Evaluation Date of Evaluation: 12/14/16 Time of Evaluation: 09:00 - Subjective Subjective: cultures noted afebrile on IV antibiotics for vascular eval cont wound care Objective - Vital Signs/Intake and Output Vital Signs (last 24 hours): Temp Pulse Resp BP Pulse Ox 97.6 F 88 20 145/67 98 12/14/16 14:25 12/14/16 14:25 12/14/16 14:25 12/14/16 14:25 12/13/16 23:15 Intake and Output: 12/14/16 12/14/16 06:59 18:59 Intake Total 720 Balance 720 - Medications Medications: Current Medications Amlodipine Besylate (Norvasc) 5 mg PO DAILY [facility] Last Admin: 12/14/16 10:05 Dose: 5 mg Aspirin (Aspirin Chewable) 81 mg PO DAILY [facility] Last Admin: 12/14/16 10:05 Dose: 81 mg Clopidogrel Bisulfate (Plavix) 75 mg PO DAILY [facility] Last Admin: 12/14/16 10:09 Dose: 75 mg Docusate Sodium (Colace) 100 mg PO BID [facility] Last Admin: 12/14/16 10:05 Dose: 100 mg Famotidine (Pepcid) 20 mg PO DAILY [facility] Last Admin: 12/14/16 10:09 Dose: 20 mg Ferrous Sulfate (Feosol Liq) 300 mg PO BID [facility] Last Admin: 12/14/16 10:06 Dose: 300 mg Heparin Sodium (Porcine) (Heparin) 5,000 units SC Q12 [facility] Last Admin: 12/14/16 10:08 Dose: 5,000 units Hydralazine HCl (Apresoline) 10 mg IVP Q6H PRN PRN Reason: Systolic Blood Pressure Last Admin: 12/14/16 14:02 Dose: 10 mg Meropenem 500 mg/ Sodium (Chloride) 100 mls @ 100 mls/hr IVPB Q8 [facility] Last Admin: 12/14/16 14:00 Dose: 100 mls/hr Sodium Chloride (Sodium Chloride 0.9%) 1,000 mls @ 50 mls/hr IV .Q20H [facility] Last Admin: 12/14/16 14:03 Dose: 50 mls/hr Insulin Aspart (Novolog) 0 unit SC ACHS [facility] PRN Reason: Protocol Last Admin: 12/14/16 11:30 Dose: Not Given Insulin Glargine (Lantus) 10 unit SC [facility] Last Admin: 12/13/16 21:54 Dose: 10 units Levothyroxine Sodium (Synthroid) 100 mcg PO DAILY@0630 [facility] Last Admin: 12/14/16 06:10 Dose: 100 mcg Metoprolol Tartrate (Lopressor) 12.5 mg PO 0800,1800 [facility] Last Admin: 12/14/16 09:00 Dose: 12.5 mg Rosuvastatin Calcium (Crestor) 2.5 mg PO [facility] Last Admin: 12/13/16 21:54 Dose: 2.5 mg Tramadol HCl (Ultram) 25 mg PO TID PRN PRN Reason: Pain, moderate (4-7) - Labs Labs: 12/14/16 08:23 12/14/16 07:57 PT 11.3 SECONDS (9.7-12.2) 12/11/16 19:52 INR 1.0 12/11/16 19:52 APTT 31 SECONDS (21-34) D 12/12/16 09:25 - Constitutional Appears: Non-toxic, Chronically Ill - Head Exam Head Exam: NORMOCEPHALIC - Eye Exam Eye Exam: PERRL. absent: Nystagmus, Scleral icterus - ENT Exam ENT Exam: Mucous Membranes Dry, Normal External Ear Exam, Normal Oropharynx - Neck Exam Neck Exam: absent: Lymphadenopathy, Thyromegaly - Respiratory Exam Respiratory Exam: Decreased Breath Sounds, Clear to Ausculation Bilateral - Cardiovascular Exam Cardiovascular Exam: REGULAR RHYTHM, +S1, +S2 - GI/Abdominal Exam GI & Abdominal Exam: Distended, Soft. 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
--- NOTE | 2016-12-14 14:50 | CP.PCM.PCO ---
Physician Communication Note - Physician Communication Note Physician Communication Note: patient's son did not come for family meet. as agreed
--- NOTE | 2016-12-14 15:56 | CP.PCM.PN ---
Subjective - Date & Time of Evaluation Date of Evaluation: 12/14/16 Time of Evaluation: 15:37 - Subjective Subjective: Family meeting held for goals of care discussion. Deangelo Encinas attended. Objective - Vital Signs/Intake and Output Vital Signs (last 24 hours): Temp Pulse Resp BP Pulse Ox 97.6 F 88 20 145/67 98 12/14/16 14:25 12/14/16 14:25 12/14/16 14:25 12/14/16 14:25 12/13/16 23:15 Intake and Output: 12/14/16 12/14/16 06:59 18:59 Intake Total 720 Balance 720 - Medications Medications: Current Medications Amlodipine Besylate (Norvasc) 5 mg PO DAILY [facility] Last Admin: 12/14/16 10:05 Dose: 5 mg Aspirin (Aspirin Chewable) 81 mg PO DAILY [facility] Last Admin: 12/14/16 10:05 Dose: 81 mg Clopidogrel Bisulfate (Plavix) 75 mg PO DAILY [facility] Last Admin: 12/14/16 10:09 Dose: 75 mg Docusate Sodium (Colace) 100 mg PO BID [facility] Last Admin: 12/14/16 10:05 Dose: 100 mg Famotidine (Pepcid) 20 mg PO DAILY [facility] Last Admin: 12/14/16 10:09 Dose: 20 mg Ferrous Sulfate (Feosol Liq) 300 mg PO BID [facility] Last Admin: 12/14/16 10:06 Dose: 300 mg Heparin Sodium (Porcine) (Heparin) 5,000 units SC Q12 [facility] Last Admin: 12/14/16 10:08 Dose: 5,000 units Hydralazine HCl (Apresoline) 10 mg IVP Q6H PRN PRN Reason: Systolic Blood Pressure Last Admin: 12/14/16 14:02 Dose: 10 mg Meropenem 500 mg/ Sodium (Chloride) 100 mls @ 100 mls/hr IVPB Q8 [facility] Last Admin: 12/14/16 14:00 Dose: 100 mls/hr Sodium Chloride (Sodium Chloride 0.9%) 1,000 mls @ 50 mls/hr IV .Q20H [facility] Last Admin: 12/14/16 14:03 Dose: 50 mls/hr Insulin Aspart (Novolog) 0 unit SC ACHS [facility] PRN Reason: Protocol Last Admin: 12/14/16 11:30 Dose: Not Given Insulin Glargine (Lantus) 10 unit SC [facility] Last Admin: 12/13/16 21:54 Dose: 10 units Levothyroxine Sodium (Synthroid) 100 mcg PO DAILY@0630 [facility] Last Admin: 12/14/16 06:10 Dose: 100 mcg Metoprolol Tartrate (Lopressor) 12.5 mg PO 0800,1800 [facility] Last Admin: 12/14/16 09:00 Dose: 12.5 mg Rosuvastatin Calcium (Crestor) 2.5 mg PO [facility] Last Admin: 12/13/16 21:54 Dose: 2.5 mg Tramadol HCl (Ultram) 25 mg PO TID PRN PRN Reason: Pain, moderate (4-7) - Labs Labs: 12/14/16 08:23 12/14/16 07:57 PT 11.3 SECONDS (9.7-12.2) 12/11/16 19:52 INR 1.0 12/11/16 19:52 APTT 31 SECONDS (21-34) D 12/12/16 09:25 - Constitutional Appears: Chronically Ill - Head Exam Head Exam: ATRAUMATIC, NORMAL INSPECTION, NORMOCEPHALIC - Eye Exam Eye Exam: EOMI, Normal appearance, PERRL Pupil Exam: NORMAL ACCOMODATION, PERRL - ENT Exam ENT Exam: Mucous Membranes Moist, Normal Exam - Neck Exam Neck Exam: Full ROM, Normal Inspection - Respiratory Exam Respiratory Exam: Decreased Breath Sounds, NORMAL BREATHING PATTERN - Cardiovascular Exam Cardiovascular Exam: REGULAR RHYTHM, +S1, +S2 - GI/Abdominal Exam GI & Abdominal Exam: Normal Bowel Sounds - Rectal Exam Rectal Exam: Deferred - Exam Exam: NORMAL INSPECTION - Extremities Exam Extremities Exam: Normal Inspection Additional comments: Left foot dressing - Back Exam Back Exam: NORMAL INSPECTION - Neurological Exam Neurological Exam: Alert, Altered Neuro motor strength exam: Left Upper Extremity: 3, Right Upper Extremity: 3, Left Lower Extremity: 0, Right Lower Extremity: 2/1 - Psychiatric Exam Psychiatric exam: Flat Affect - Skin Skin Exam: Normal Color, Warm Assessment and Plan - Assessment and Plan (Free Text) Assessment: Patient remains in no acute distress, forgetful with affect that is flat. Serenity IV onboard for left foot infection. Patient is to be evaluated by MRI for possible osteo to left foot. Doctor Stephanie on board for vascular Sx. Patient's son Mr Encinas present and goals of care discussed. Mr. Encinas is aware of patient's current situation and need for antibiotic Tx. He is concerned about the wound not healing well. I reviewed most recent diagnostic studies and blood test results. Son was informedabout pending MRI. His fear is that patient may need further amputation. The son also reports, that he saw decline in patient physical and mental condition. 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 Son is concerned that upon discharge home patient may need more help with ADls. We discussed the possibility of LTC placement with out reaching final conclusion. Code status discussed. I suggested that many people in his father's condition have clear preferences about the end of life care. More information offered regarding Advance care directive. the son stated not being ready for that decision . I aknowledged his feelings and offer my support if he may need in the future. Impression * Patient with left foot infection on IV antibiotics * Patient is forgetfull and unable to make own medical decisions * Patient incontinent of bowel and bladder * Limited mobility due to left foot pain * Patient's son concerned about foot infection Suggestion * Promote safety and skin integrity * Palliative care will fallow up with patent and his son, and inform son on his father's progress * Patient remains Full Code as per son's wishes who advocates for patient
[2016-12-14] MEDS: Rosuvastatin Calcium 2.5 mg Tab PO SCH (21:53)
[2016-12-14] MEDS: (Lantus) Insulin Glargine, Recombinant SC SCH (21:54)
[2016-12-14 22:47] LABS: URINE 24 HOUR SODIUM 52.8 mmol/L (40-220)
[2016-12-15] MEDS: Levothyroxine 100 MCG TAB PO SCH (06:29)
[2016-12-15] MEDS: Meropenem 500 MG in Sodium Chloride 0.9% 100 ML IVPB SCH ×3 (06:30→21:12)
[2016-12-15] MEDS: (Novolog) Insulin Aspart, Recombinant 100 u/ml 10 ml vial SC SCH ×4 (07:30→22:51)
[2016-12-15] MEDS: Ferrous Sulfate 300 mg/5 mL Liq UD PO SCH ×2 (09:23→17:51)
[2016-12-15] MEDS: Tramadol 25 mg PO PRN (09:24)
[2016-12-15 09:28] LABS: CHLORIDE 113 mmol/L (98-107); POTASSIUM 3.9 mmol/L (3.6-5.2); SODIUM 142 mmol/L (132-148)
[2016-12-15] MEDS: Sodium Chloride 0.9% 1,000 ML IV SCH (09:30)
[2016-12-15 09:31] LABS: BLOOD UREA NITROGEN 15 mg/dL (9-20); CARBON DIOXIDE 20 mmol/L (22-30); GFR AFRICAN-AMERICAN > 60; GLUCOSE,RANDOM 81 mg/dL (75-110)
[2016-12-15 09:32] LABS: CALCIUM 8.5 mg/dl (8.6-10.4)
--- NOTE | 2016-12-15 09:46 | CP.PCM.PN ---
Subjective - Date & Time of Evaluation Date of Evaluation: 12/15/16 Time of Evaluation: 08:20 - Subjective Subjective: no acute complaints foot bandaged no acute distess chronic dementia unable to provide ROS Objective - Vital Signs/Intake and Output Vital Signs (last 24 hours): Temp Pulse Resp BP Pulse Ox 97.6 F 76 20 150/58 L 98 12/15/16 07:25 12/15/16 07:25 12/15/16 07:25 12/15/16 07:25 12/15/16 07:25 Intake and Output: 12/15/16 12/15/16 06:59 18:59 Intake Total 550 Output Total 600 Balance -50 - Medications Medications: Current Medications Amlodipine Besylate (Norvasc) 5 mg PO DAILY [facility] Last Admin: 12/15/16 09:23 Dose: 5 mg Aspirin (Aspirin Chewable) 81 mg PO DAILY [facility] Last Admin: 12/14/16 10:05 Dose: 81 mg Clopidogrel Bisulfate (Plavix) 75 mg PO DAILY [facility] Last Admin: 12/15/16 09:24 Dose: 75 mg Docusate Sodium (Colace) 100 mg PO BID [facility] Last Admin: 12/15/16 09:24 Dose: 100 mg Famotidine (Pepcid) 20 mg PO DAILY [facility] Last Admin: 12/15/16 09:24 Dose: 20 mg Ferrous Sulfate (Feosol Liq) 300 mg PO BID [facility] Last Admin: 12/15/16 09:23 Dose: 300 mg Heparin Sodium (Porcine) (Heparin) 5,000 units SC Q12 [facility] Last Admin: 12/15/16 09:24 Dose: 5,000 units Hydralazine HCl (Apresoline) 10 mg IVP Q6H PRN PRN Reason: Systolic Blood Pressure Last Admin: 12/14/16 14:02 Dose: 10 mg Meropenem 500 mg/ Sodium (Chloride) 100 mls @ 100 mls/hr IVPB Q8 [facility] Last Admin: 12/15/16 06:30 Dose: 100 mls/hr Sodium Chloride (Sodium Chloride 0.9%) 1,000 mls @ 50 mls/hr IV .Q20H [facility] Last Admin: 12/14/16 14:03 Dose: 50 mls/hr Insulin Aspart (Novolog) 0 unit SC ACHS [facility] PRN Reason: Protocol Last Admin: 12/15/16 07:30 Dose: Not Given Insulin Glargine (Lantus) 10 unit SC [facility] Last Admin: 12/14/16 21:54 Dose: 10 units Levothyroxine Sodium (Synthroid) 100 mcg PO DAILY@0630 [facility] Last Admin: 12/15/16 06:29 Dose: 100 mcg Metoprolol Tartrate (Lopressor) 12.5 mg PO 0800,1800 [facility] Last Admin: 12/15/16 09:27 Dose: 12.5 mg Rosuvastatin Calcium (Crestor) 2.5 mg PO [facility] Last Admin: 12/14/16 21:53 Dose: 2.5 mg Tramadol HCl (Ultram) 25 mg PO TID PRN PRN Reason: Pain, moderate (4-7) Last Admin: 12/15/16 09:24 Dose: 25 mg - Labs Labs: 12/14/16 08:23 12/15/16 08:50 PT 11.3 SECONDS (9.7-12.2) 12/11/16 19:52 INR 1.0 12/11/16 19:52 APTT 31 SECONDS (21-34) D 12/12/16 09:25 - Constitutional Appears: Confused, Chronically Ill - Eye Exam Eye Exam: EOMI - ENT Exam ENT Exam: Mucous Membranes Moist - Neck Exam Neck Exam: Full ROM. absent: Lymphadenopathy - Respiratory Exam Respiratory Exam: NORMAL BREATHING PATTERN. absent: Accessory Muscle Use - Cardiovascular Exam Cardiovascular Exam: REGULAR RHYTHM. absent: Rubs - GI/Abdominal Exam GI & Abdominal Exam: Soft. absent: Tenderness - Extremities Exam Additional comments: left foot bandaged Assessment and Plan - Assessment and Plan (Free Text) Assessment: yadira, better with ivf and hold of arb nonhealing TMA on AB for MRI evaluation of renal cysts at later point
--- NOTE | 2016-12-15 12:01 | CP.PCM.PN ---
Subjective - Date & Time of Evaluation Date of Evaluation: 12/15/16 Time of Evaluation: 06:45 - Subjective Subjective: PGY2 Medicine Note - Dr. Sands's service: Patient seen and examined at bedside this AM. Patient asking why he is here and where his family is. Patient told he is here for a foot infection and that his family is at home. Patient knows his name, but does not know where he is, why he is here, what year it is or what month it is. Patient denies fever, chills, chest pain, abdominal pain, nausea, vomiting, diarrhea, constipation, dysuria. Patient also denies pain in his foot. Objective - Vital Signs/Intake and Output Vital Signs (last 24 hours): Temp Pulse Resp BP Pulse Ox 97.6 F 76 20 150/58 L 98 12/15/16 07:25 12/15/16 07:25 12/15/16 07:25 12/15/16 07:25 12/15/16 07:25 Intake and Output: 12/15/16 12/15/16 06:59 18:59 Intake Total 550 Output Total 600 Balance -50 - Medications Medications: Current Medications Amlodipine Besylate (Norvasc) 5 mg PO DAILY [facility] Last Admin: 12/15/16 09:23 Dose: 5 mg Aspirin (Aspirin Chewable) 81 mg PO DAILY [facility] Last Admin: 12/15/16 10:17 Dose: 81 mg Clopidogrel Bisulfate (Plavix) 75 mg PO DAILY [facility] Last Admin: 12/15/16 09:24 Dose: 75 mg Docusate Sodium (Colace) 100 mg PO BID [facility] Last Admin: 12/15/16 09:24 Dose: 100 mg Famotidine (Pepcid) 20 mg PO DAILY [facility] Last Admin: 12/15/16 09:24 Dose: 20 mg Ferrous Sulfate (Feosol Liq) 300 mg PO BID [facility] Last Admin: 12/15/16 09:23 Dose: 300 mg Hydralazine HCl (Apresoline) 10 mg IVP Q6H PRN PRN Reason: Systolic Blood Pressure Last Admin: 12/14/16 14:02 Dose: 10 mg Meropenem 500 mg/ Sodium (Chloride) 100 mls @ 100 mls/hr IVPB Q8 [facility] Last Admin: 12/15/16 06:30 Dose: 100 mls/hr Sodium Chloride (Sodium Chloride 0.9%) 1,000 mls @ 50 mls/hr IV .Q20H [facility] Last Admin: 12/15/16 09:30 Dose: 50 mls/hr Insulin Aspart (Novolog) 0 unit SC ACHS [facility] PRN Reason: Protocol Last Admin: 12/15/16 07:30 Dose: Not Given Insulin Glargine (Lantus) 10 unit SC [facility] Last Admin: 12/14/16 21:54 Dose: 10 units Levothyroxine Sodium (Synthroid) 100 mcg PO DAILY@0630 [facility] Last Admin: 12/15/16 06:29 Dose: 100 mcg Metoprolol Tartrate (Lopressor) 12.5 mg PO 0800,1800 [facility] Last Admin: 12/15/16 09:27 Dose: 12.5 mg Rosuvastatin Calcium (Crestor) 2.5 mg PO [facility] Last Admin: 12/14/16 21:53 Dose: 2.5 mg Tramadol HCl (Ultram) 25 mg PO TID PRN PRN Reason: Pain, moderate (4-7) Last Admin: 12/15/16 09:24 Dose: 25 mg - Labs Labs: 12/14/16 08:23 12/15/16 08:50 PT 11.3 SECONDS (9.7-12.2) 12/11/16 19:52 INR 1.0 12/11/16 19:52 APTT 31 SECONDS (21-34) D 12/12/16 09:25 - Constitutional Appears: Non-toxic, No Acute Distress, Confused - Head Exam Head Exam: NORMAL INSPECTION - Eye Exam Eye Exam: EOMI - ENT Exam ENT Exam: Mucous Membranes Moist - Respiratory Exam Respiratory Exam: Clear to Ausculation Bilateral, NORMAL BREATHING PATTERN. absent: Rales, Rhonchi, Wheezes - Cardiovascular Exam Cardiovascular Exam: REGULAR RHYTHM, +S1, +S2. absent: Gallop, Rubs, Murmur - GI/Abdominal Exam GI & Abdominal Exam: Soft, Normal Bowel Sounds. absent: Tenderness - Extremities Exam Additional comments: non healing left MTA in bandage - c/d/i - Neurological Exam Neurological Exam: Alert, Awake. 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 Gaytan consulted. Podiatry plans to follow while patient is hospitalized. -Wound culture: Pseudomononas Aeruginosa (sensitive to cefepime, cipro, genta, imipenem), Enterococcus faecalis (sensitive to cipro, levo, penicillin, tigecycline, vanco) -Currently on Meropenem 500 mg IVPB Q8h [facility] -Vascular surgeon Dr. Brown consulted. Plans for angiography on Saturday to evaluate for PAD. -Abdominal Angiography: CTA ABDOMEN PELVIS:1. Moderate calcific plaque throughout the abdominal aorta without stenosis. 2. 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 There is poststenotic dilatation. 3. There is moderate stenosis of the origin of the superior mesenteric artery. 4. Both renal arteries have moderate stenosis at the origin. LEFT LOWER EXTREMITY CT ANGIOGRAM:1. Unremarkable common femoral artery. 2. Patent distal SFA stent. 3. Popliteal artery has moderate diffuse stenosis. 4. Left runoff shows patent anterior tibial artery. Posterior tibial artery and peroneal artery believed to be occluded. RIGHT LOWER EXTREMITY CTA:1. Common femoral artery is unremarkable 2. Moderate calcific plaque throughout the SFA with there is a moderate stenosis in the mid SFA. 3. Moderate stenosis of popliteal artery 4. Unremarkable anterior tibial artery. Posterior tibial artery and peroneal artery believed to be occluded. NONVASCULAR FINDINGS: Prostate measures 6.7 centimeter AP x 5.4 centimeter transverse with mass effect on the urinary bladder. -ASA 81mg po daily -Plavix 75mg po daily -Tramadol 25mg po tid prn pain On last visit: Arterial doppler: 1.) Occluded left posterior tibial artery. No flow detected throughout the vessel. 2.) Continuous monophasic waveforms, beginning at left superficial femoral artery level. Calcific plaques notted throughout bilateral lower extremities. Slightly increased velocities due to vessel narrowing. No evidence of arterial occlusions of bilateral extremity arteries above the knee. (see full report) s/p angiogram - aortofemoral angiogram via right groin, selective angiogram left femoral artery. pathway atherectomy. 40% proximal sfa occlusion and 100% mid and distal sfa occlusion (see full report). -L foot does not look infected- hold abx Bacteremia Blood cx: Corynebacterium species ID, Dr. Galindo, consulted. Help appreciated. CHF NYHA Class I -Hold home lasix 20 mg PO daily secondary to acute on chronic kidney injury -CXR: No evidence of new infiltrate or consolidation in the lungs. No significant pleural effusion or pneumothorax apparent. CAD -ASA 81mg PO daily -Plavix 75mg PO daily DM2 -HgbA1c 7.2 -Accucheck -RISS -Lantus 10units HS - confirmed by pharmacy Hypercholesterolemia -LDL 125, HDL 24, Cholesterol 187, Triglycerides 208 -Crestor 2.5mg po hs Hypertension -Hydralazine 10mg ivp q6 prn SBP > 160 -Losartan 50mg po daily -Metprolol 12.5mg po bid Acute on chronic renal insufficiency -Improving -BUN/CR 15/1.0 -Continue Normal saline 75cc/hr IV -Nephrology, Dr. Carmona consulted. Recommends IV fluids prior to angio and close renal function follow-up post procedure -Renal US: Bilateral renal cysts, some of which are mildly complex containing calcifications and septations (see full report) -Per Dr. Carmona, may need kidney CT in future to evaluate complex cysts Hx of Iron Deficiency Anemia -Feosol 300mg po bid Hx of Hypothyroidism -Continue Synthroid 100 mcg po AM -TSH 6.33, Free T4 0.96 PPX -Heparin 5000u sc q12 -Protonix 40mg po daily -SCD c/i -PT/OT -Heart healthy moderate consistent carb renal diet -Palliative Care Consult- Full Code. Plan to discuss goals of care with son with [employer], Eliana Escudero, however, son never showed up today. -I called the son today; only son's nephew was home - left a message to call me back
--- NOTE | 2016-12-15 12:04 | CP.PCM.PN ---
Subjective - Date & Time of Evaluation Date of Evaluation: 12/15/16 Time of Evaluation: 12:04 - Subjective Subjective: for repeat angio saturday left message for son Objective - Vital Signs/Intake and Output Vital Signs (last 24 hours): Temp Pulse Resp BP Pulse Ox 97.6 F 76 20 150/58 L 98 12/15/16 07:25 12/15/16 07:25 12/15/16 07:25 12/15/16 07:25 12/15/16 07:25 Intake and Output: 12/15/16 12/15/16 06:59 18:59 Intake Total 550 Output Total 600 Balance -50 - Medications Medications: Current Medications Amlodipine Besylate (Norvasc) 5 mg PO DAILY [facility] Last Admin: 12/15/16 09:23 Dose: 5 mg Aspirin (Aspirin Chewable) 81 mg PO DAILY [facility] Last Admin: 12/15/16 10:17 Dose: 81 mg Clopidogrel Bisulfate (Plavix) 75 mg PO DAILY [facility] Last Admin: 12/15/16 09:24 Dose: 75 mg Docusate Sodium (Colace) 100 mg PO BID [facility] Last Admin: 12/15/16 09:24 Dose: 100 mg Famotidine (Pepcid) 20 mg PO DAILY [facility] Last Admin: 12/15/16 09:24 Dose: 20 mg Ferrous Sulfate (Feosol Liq) 300 mg PO BID [facility] Last Admin: 12/15/16 09:23 Dose: 300 mg Hydralazine HCl (Apresoline) 10 mg IVP Q6H PRN PRN Reason: Systolic Blood Pressure Last Admin: 12/14/16 14:02 Dose: 10 mg Meropenem 500 mg/ Sodium (Chloride) 100 mls @ 100 mls/hr IVPB Q8 [facility] Last Admin: 12/15/16 06:30 Dose: 100 mls/hr Sodium Chloride (Sodium Chloride 0.9%) 1,000 mls @ 50 mls/hr IV .Q20H [facility] Last Admin: 12/15/16 09:30 Dose: 50 mls/hr Insulin Aspart (Novolog) 0 unit SC ACHS [facility] PRN Reason: Protocol Last Admin: 12/15/16 07:30 Dose: Not Given Insulin Glargine (Lantus) 10 unit SC HS [facility] Last Admin: 12/14/16 21:54 Dose: 10 units Levothyroxine Sodium (Synthroid) 100 mcg PO DAILY@0630 [facility] Last Admin: 12/15/16 06:29 Dose: 100 mcg Metoprolol Tartrate (Lopressor) 12.5 mg PO 0800,1800 [facility] Last Admin: 12/15/16 09:27 Dose: 12.5 mg Rosuvastatin Calcium (Crestor) 2.5 mg PO HS [facility] Last Admin: 12/14/16 21:53 Dose: 2.5 mg Tramadol HCl (Ultram) 25 mg PO TID PRN PRN Reason: Pain, moderate (4-7) Last Admin: 12/15/16 09:24 Dose: 25 mg - Labs Labs: 12/14/16 08:23 12/15/16 08:50 PT 11.3 SECONDS (9.7-12.2) 12/11/16 19:52 INR 1.0 12/11/16 19:52 APTT 31 SECONDS (21-34) D 12/12/16 09:25
--- NOTE | 2016-12-15 13:43 | CP.PCM.PN ---
Subjective - Date & Time of Evaluation Date of Evaluation: 12/15/16 Time of Evaluation: 13:42 - Subjective Subjective: 81 y/o male was seen and evaluated at bedside with Dr. Gaytan for followup of left foot TMA site nonhealing wound. Patient was resting comfortably in bed. Left foot dressing was intact, clean, and dry. Patient denies any symptoms of N/ V/F/SOB/chills and chest pains. Objective - Vital Signs/Intake and Output Vital Signs (last 24 hours): Temp Pulse Resp BP Pulse Ox 97.6 F 76 20 150/58 L 98 12/15/16 07:25 12/15/16 07:25 12/15/16 07:25 12/15/16 07:25 12/15/16 07:25 Intake and Output: 12/15/16 12/15/16 06:59 18:59 Intake Total 550 Output Total 600 Balance -50 - Medications Medications: Current Medications Amlodipine Besylate (Norvasc) 5 mg PO DAILY [facility] Last Admin: 12/15/16 09:23 Dose: 5 mg Aspirin (Aspirin Chewable) 81 mg PO DAILY [facility] Last Admin: 12/15/16 10:17 Dose: 81 mg Clopidogrel Bisulfate (Plavix) 75 mg PO DAILY [facility] Last Admin: 12/15/16 09:24 Dose: 75 mg Docusate Sodium (Colace) 100 mg PO BID [facility] Last Admin: 12/15/16 09:24 Dose: 100 mg Famotidine (Pepcid) 20 mg PO DAILY [facility] Last Admin: 12/15/16 09:24 Dose: 20 mg Ferrous Sulfate (Feosol Liq) 300 mg PO BID [facility] Last Admin: 12/15/16 09:23 Dose: 300 mg Hydralazine HCl (Apresoline) 10 mg IVP Q6H PRN PRN Reason: Systolic Blood Pressure Last Admin: 12/14/16 14:02 Dose: 10 mg Meropenem 500 mg/ Sodium (Chloride) 100 mls @ 100 mls/hr IVPB Q8 [facility] Last Admin: 12/15/16 06:30 Dose: 100 mls/hr Sodium Chloride (Sodium Chloride 0.9%) 1,000 mls @ 50 mls/hr IV .Q20H [facility] Last Admin: 12/15/16 09:30 Dose: 50 mls/hr Insulin Aspart (Novolog) 0 unit SC ACHS [facility] PRN Reason: Protocol Last Admin: 12/15/16 07:30 Dose: Not Given Insulin Glargine (Lantus) 10 unit SC [facility] Last Admin: 12/14/16 21:54 Dose: 10 units Levothyroxine Sodium (Synthroid) 100 mcg PO DAILY@0630 [facility] Last Admin: 12/15/16 06:29 Dose: 100 mcg Metoprolol Tartrate (Lopressor) 12.5 mg PO 0800,1800 [facility] Last Admin: 12/15/16 09:27 Dose: 12.5 mg Rosuvastatin Calcium (Crestor) 2.5 mg PO [facility] Last Admin: 12/14/16 21:53 Dose: 2.5 mg Tramadol HCl (Ultram) 25 mg PO TID PRN PRN Reason: Pain, moderate (4-7) Last Admin: 12/15/16 09:24 Dose: 25 mg - Labs Labs: 12/14/16 08:23 12/15/16 08:50 PT 11.3 SECONDS (9.7-12.2) 12/11/16 19:52 INR 1.0 12/11/16 19:52 APTT 31 SECONDS (21-34) D 12/12/16 09:25 - Constitutional Appears: Well, Non-toxic, No Acute Distress - Extremities Exam Additional comments: Dressing intact, clean and dry - Neurological Exam Neurological Exam: Alert, Awake - Psychiatric Exam Psychiatric exam: Normal Affect Assessment and Plan - Assessment and Plan (Free Text) Assessment: 81 y/o male patient with non-healing left foot TMA site secondary to PVD Plan: Patient seen and evaluated at bedside Patient refused to have dressing change Discussed with attending Dr. Gaytan Labs and vitals were reviewed ( WBC: 8.5) Per Dr. Brown: Patient to OR on Saturday for LLE angio Wound cx is : Pseudomonas, Enterococcus Faecalis Podiatry will continue to follow while patient remains in house
[2016-12-15] MEDS: (Lantus) Insulin Glargine, Recombinant SC SCH (21:14)
[2016-12-15] MEDS: Rosuvastatin Calcium 2.5 mg Tab PO SCH (21:14)
[2016-12-16] MEDS: Levothyroxine 100 MCG TAB PO SCH (06:26)
[2016-12-16] MEDS: Meropenem 500 MG in Sodium Chloride 0.9% 100 ML IVPB SCH ×3 (06:26→21:52)
[2016-12-16] MEDS: (Novolog) Insulin Aspart, Recombinant 100 u/ml 10 ml vial SC SCH ×4 (07:30→21:51)
--- NOTE | 2016-12-16 08:20 | CP.PCM.PN ---
Subjective - Date & Time of Evaluation Date of Evaluation: 12/16/16 Time of Evaluation: 06:30 - Subjective Subjective: PGY2 Medicine Note - Dr. Sands's service: Patient seen and examined at bedside this AM. Patient sleeping comfortably. Patient groggy upon awakening. Patient denies fever, chills, chest pain, abdominal pain, nausea, vomiting, diarrhea, constipation, dysuria. Patient also denies pain in his foot. Objective - Vital Signs/Intake and Output Vital Signs (last 24 hours): Temp Pulse Resp BP Pulse Ox 98.2 F 66 20 160/66 H 100 12/15/16 23:35 12/15/16 23:35 12/15/16 23:35 12/15/16 23:35 12/15/16 23:35 Intake and Output: 12/16/16 12/16/16 06:59 18:59 Intake Total 400 Balance 400 - Medications Medications: Current Medications Amlodipine Besylate (Norvasc) 5 mg PO DAILY [facility] Last Admin: 12/15/16 09:23 Dose: 5 mg Aspirin (Aspirin Chewable) 81 mg PO DAILY [facility] Last Admin: 12/15/16 10:17 Dose: 81 mg Ciprofloxacin (Cipro) 500 mg PO BID [facility] Last Admin: 12/15/16 17:51 Dose: 500 mg Clopidogrel Bisulfate (Plavix) 75 mg PO DAILY [facility] Last Admin: 12/15/16 09:24 Dose: 75 mg Docusate Sodium (Colace) 100 mg PO BID [facility] Last Admin: 12/15/16 17:51 Dose: 100 mg Famotidine (Pepcid) 20 mg PO DAILY [facility] Last Admin: 12/15/16 09:24 Dose: 20 mg Ferrous Sulfate (Feosol Liq) 300 mg PO BID [facility] Last Admin: 12/15/16 17:51 Dose: 300 mg Hydralazine HCl (Apresoline) 10 mg IVP Q6H PRN PRN Reason: Systolic Blood Pressure Last Admin: 12/14/16 14:02 Dose: 10 mg Meropenem 500 mg/ Sodium (Chloride) 100 mls @ 100 mls/hr IVPB Q8 [facility] Last Admin: 12/16/16 06:26 Dose: 100 mls/hr Sodium Chloride (Sodium Chloride 0.9%) 1,000 mls @ 50 mls/hr IV .Q20H [facility] Last Admin: 12/15/16 09:30 Dose: 50 mls/hr Insulin Aspart (Novolog) 0 unit SC ACHS [facility] PRN Reason: Protocol Last Admin: 12/15/16 22:51 Dose: Not Given Insulin Glargine (Lantus) [address] [facility] Last Admin: 12/15/16 21:14 Dose: 10 units Levothyroxine Sodium (Synthroid) 100 mcg PO DAILY@0630 [facility] Last Admin: 12/16/16 06:26 Dose: 100 mcg Metoprolol Tartrate (Lopressor) 12.5 mg PO 0800,1800 [facility] Last Admin: 12/15/16 17:51 Dose: 12.5 mg Rosuvastatin Calcium (Crestor) 2.[address] [facility] Last Admin: 12/15/16 21:14 Dose: 2.5 mg Tramadol HCl (Ultram) 25 mg PO TID PRN PRN Reason: Pain, moderate (4-7) Last Admin: 12/15/16 09:24 Dose: 25 mg - Labs Labs: 12/14/16 08:23 12/15/16 08:50 PT 11.3 SECONDS (9.7-12.2) 12/11/16 19:52 INR 1.0 12/11/16 19:52 APTT 31 SECONDS (21-34) D 12/12/16 09:25 - Constitutional Appears: Non-toxic, No Acute Distress - Head Exam Head Exam: NORMAL INSPECTION - Eye Exam Eye Exam: EOMI - ENT Exam ENT Exam: Mucous Membranes Moist - Respiratory Exam Respiratory Exam: Clear to Ausculation Bilateral, NORMAL BREATHING PATTERN. absent: Rales, Rhonchi, Wheezes - Cardiovascular Exam Cardiovascular Exam: REGULAR RHYTHM, +S1, +S2. absent: Gallop, Rubs, Murmur - GI/Abdominal Exam GI & Abdominal Exam: Soft, Normal Bowel Sounds. absent: Tenderness - Extremities Exam Extremities Exam: absent: Pedal Edema Additional comments: non healing left MTA in bandage - intact, betadine soaked through, patient refusing dressing change - Neurological Exam Neurological Exam: Alert, Awake, Oriented x3 - Psychiatric Exam Psychiatric exam: Normal Affect, Normal Mood - Skin Skin Exam: Normal Color, Warm Assessment and Plan - Assessment and Plan (Free Text) Assessment: Nonhealing left MTA likely secondary to PAD -Podiatry Dr. Gaytan consulted. Podiatry plans to follow while patient is hospitalized. -Wound culture: Pseudomononas Aeruginosa (sensitive to cefepime, cipro, genta, imipenem), Enterococcus faecalis (sensitive to cipro, levo, penicillin, tigecycline, vanco) -Currently on Meropenem 500 mg IVPB Q8h [facility] day 4 and Ciprofloxacin 500mg PO Q12H day 2 -Vascular surgeon Dr. Brown consulted. Plans for angiography on Saturday to evaluate for PAD. -Abdominal Angiography: CTA ABDOMEN PELVIS:1. Moderate calcific plaque throughout the abdominal aorta without stenosis. 2. 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 There is poststenotic dilatation. 3. There is moderate stenosis of the origin of the superior mesenteric artery. 4. Both renal arteries have moderate stenosis at the origin. LEFT LOWER EXTREMITY CT ANGIOGRAM:1. Unremarkable common femoral artery. 2. Patent distal SFA stent. 3. Popliteal artery has moderate diffuse stenosis. 4. Left runoff shows patent anterior tibial artery. Posterior tibial artery and peroneal artery believed to be occluded. RIGHT LOWER EXTREMITY CTA:1. Common femoral artery is unremarkable 2. Moderate calcific plaque throughout the SFA with there is a moderate stenosis in the mid SFA. 3. Moderate stenosis of popliteal artery 4. Unremarkable anterior tibial artery. Posterior tibial artery and peroneal artery believed to be occluded. NONVASCULAR FINDINGS: Prostate measures 6.7 centimeter AP x 5.4 centimeter transverse with mass effect on the urinary bladder. -ASA 81mg po daily -Plavix 75mg po daily -Tramadol 25mg po tid prn pain On last visit: Arterial doppler: 1.) Occluded left posterior tibial artery. No flow detected throughout the vessel. 2.) Continuous monophasic waveforms, beginning at left superficial femoral artery level. Calcific plaques notted throughout bilateral lower extremities. Slightly increased velocities due to vessel narrowing. No evidence of arterial occlusions of bilateral extremity arteries above the knee. (see full report) s/p angiogram - aortofemoral angiogram via right groin, selective angiogram left femoral artery. pathway atherectomy. 40% proximal sfa occlusion and 100% mid and distal sfa occlusion (see full report). -L foot does not look infected- hold abx Bacteremia Blood cx: Corynebacterium species ID, Dr. Galindo, consulted. Help appreciated. CHF NYHA Class I -Hold home lasix 20 mg PO daily secondary to acute on chronic kidney injury -CXR: No evidence of new infiltrate or consolidation in the lungs. No significant pleural effusion or pneumothorax apparent. CAD -ASA 81mg PO daily -Plavix 75mg PO daily DM2 -HgbA1c 7.2 -Accucheck -RISS -Lantus 10units HS - confirmed by pharmacy Hypercholesterolemia -LDL 125, HDL 24, Cholesterol 187, Triglycerides 208 -Crestor 2.5mg po hs Hypertension -Hydralazine 10mg ivp q6 prn SBP > 160 -Losartan 50mg po daily -Metprolol 12.5mg po bid Acute on chronic renal insufficiency -Improving -BUN/CR 15/1.0 12/15/16 - f/u labs this AM -Continue Normal saline 75cc/hr IV -Nephrology, Dr. Carmona consulted. Recommends IV fluids prior to angio and close renal function follow-up post procedure -Renal US: Bilateral renal cysts, some of which are mildly complex containing calcifications and septations (see full report) -Per Dr. Carmona, may need kidney CT in future to evaluate complex cysts Hx of Iron Deficiency Anemia -Feosol 300mg po bid Hx of Hypothyroidism -Continue Synthroid 100 mcg po AM -TSH 6.33, Free T4 0.96 PPX -Heparin 5000u sc q12 -Protonix 40mg po daily -SCD c/i -PT/OT -Heart healthy moderate consistent carb renal diet -Palliative Care Consult- Full Code. Plan to discuss goals of care with son with [employer], Eliana Escudero, however, son never showed up today. -I called the son yesterday; only son's nephew was home - left a message to call me back
--- NOTE | 2016-12-16 10:13 | CP.PCM.PN ---
Subjective - Date & Time of Evaluation Date of Evaluation: 12/16/16 Time of Evaluation: 10:11 - Subjective Subjective: Surgery: Dr. Brown Pt seen and examined. Resting comfortably in bed. Has L foot pain when pressure is applied to it. Otherwise no complaints. Objective - Vital Signs/Intake and Output Vital Signs (last 24 hours): Temp Pulse Resp BP Pulse Ox 97.2 F L 91 H 20 181/99 H 98 12/16/16 07:00 12/16/16 07:00 12/16/16 07:00 12/16/16 07:00 12/16/16 07:00 Intake and Output: 12/16/16 12/16/16 06:59 18:59 Intake Total 400 Balance 400 - Medications Medications: Current Medications Amlodipine Besylate (Norvasc) 5 mg PO DAILY [facility] Last Admin: 12/15/16 09:23 Dose: 5 mg Aspirin (Aspirin Chewable) 81 mg PO DAILY [facility] Last Admin: 12/15/16 10:17 Dose: 81 mg Ciprofloxacin (Cipro) 500 mg PO BID [facility] Last Admin: 12/15/16 17:51 Dose: 500 mg Clopidogrel Bisulfate (Plavix) 75 mg PO DAILY [facility] Last Admin: 12/15/16 09:24 Dose: 75 mg Docusate Sodium (Colace) 100 mg PO BID [facility] Last Admin: 12/15/16 17:51 Dose: 100 mg Famotidine (Pepcid) 20 mg PO DAILY [facility] Last Admin: 12/15/16 09:24 Dose: 20 mg Ferrous Sulfate (Feosol Liq) 300 mg PO BID [facility] Last Admin: 12/15/16 17:51 Dose: 300 mg Hydralazine HCl (Apresoline) 10 mg IVP Q6H PRN PRN Reason: Systolic Blood Pressure Last Admin: 12/16/16 08:20 Dose: 10 mg Meropenem 500 mg/ Sodium (Chloride) 100 mls @ 100 mls/hr IVPB Q8 [facility] Last Admin: 12/16/16 06:26 Dose: 100 mls/hr Sodium Chloride (Sodium Chloride 0.9%) 1,000 mls @ 50 mls/hr IV .Q20H [facility] Last Admin: 12/15/16 09:30 Dose: 50 mls/hr Insulin Aspart (Novolog) 0 unit SC ACHS [facility] PRN Reason: Protocol Last Admin: 12/16/16 07:30 Dose: Not Given Insulin Glargine (Lantus) 10 unit SC [facility] Last Admin: 12/15/16 21:14 Dose: 10 units Levothyroxine Sodium (Synthroid) 100 mcg PO DAILY@0630 [facility] Last Admin: 12/16/16 06:26 Dose: 100 mcg Metoprolol Tartrate (Lopressor) 12.5 mg PO 0800,1800 [facility] Last Admin: 12/16/16 08:26 Dose: 12.5 mg Rosuvastatin Calcium (Crestor) 2.5 mg PO [facility] Last Admin: 12/15/16 21:14 Dose: 2.5 mg Tramadol HCl (Ultram) 25 mg PO TID PRN PRN Reason: Pain, moderate (4-7) Last Admin: 12/15/16 09:24 Dose: 25 mg - Labs Labs: 12/14/16 08:23 12/15/16 08:50 PT 11.3 SECONDS (9.7-12.2) 12/11/16 19:52 INR 1.0 12/11/16 19:52 APTT 31 SECONDS (21-34) D 12/12/16 09:25 - Constitutional Appears: Non-toxic, No Acute Distress - Head Exam Head Exam: ATRAUMATIC, NORMOCEPHALIC - Eye Exam Eye Exam: EOMI - ENT Exam ENT Exam: Mucous Membranes Moist - Neck Exam Neck Exam: Full ROM - Respiratory Exam Respiratory Exam: NORMAL BREATHING PATTERN. absent: Accessory Muscle Use, Respiratory Distress - Extremities Exam Additional comments: LLE dressing in place, tender to palpation - Neurological Exam Neurological Exam: Alert, Awake, Oriented x3 Assessment and Plan - Assessment and Plan (Free Text) Assessment: 81M w. PVD -for angio tomrrow -consent in chart, risks and benefits d/w pt -NPO at midnight -d/w attending Zemaitis PGY2
[2016-12-16] MEDS: Tramadol 25 mg PO PRN (10:17)
[2016-12-16] MEDS: Ferrous Sulfate 300 mg/5 mL Liq UD PO SCH ×2 (10:20→19:08)
[2016-12-16 14:03] LABS: BASO # 0.1 K/uL (0.0-0.2); EOS # 0.4 K/uL (0.0-0.7); EOS % 5.4 % (0.0-4.0); HEMATOCRIT 32.1 % (35.0-51.0); LYMPH # 2.3 K/uL (1.0-4.3); LYMPH % 31.1 % (20.0-40.0); MEAN CELL VOLUME 75.1 fL (80.0-94.0); MEAN CORPUSCULAR HEMOGLOBIN 23.6 pg (27.0-31.0); MEAN CORPUSCULAR HGB CONC 31.4 g/dL (33.0-37.0); MEAN PLATELET VOLUME 8.3 fL (7.2-11.7); MONO % 13.1 % (0.0-10.0); WHITE BLOOD COUNT 7.4 K/uL (4.8-10.8)
[2016-12-16 14:10] LABS: INR 1.1
[2016-12-16 14:14] LABS: CHLORIDE 110 mmol/L (98-107); SODIUM 137 mmol/L (132-148)
[2016-12-16 14:15] LABS: POTASSIUM 3.9 mmol/L (3.6-5.2)
[2016-12-16 14:17] LABS: ALB/GLOB RATIO 0.8 (1.0-2.1); ALKALINE PHOSPHATASE 110 U/L (38-126); ALT/SGPT 16 U/L (21-72); AST/SGOT 21 U/L (17-59); BILIRUBIN,TOTAL 0.5 mg/dL (0.2-1.3); BLOOD UREA NITROGEN 13 mg/dL (9-20); CALCIUM 8.4 mg/dl (8.6-10.4); CARBON DIOXIDE 20 mmol/L (22-30); GFR AFRICAN-AMERICAN > 60; GLUCOSE,RANDOM 151 mg/dL (75-110); TOTAL PROTEIN 6.6 g/dL (6.3-8.3)
[2016-12-16] MEDS: (Lantus) Insulin Glargine, Recombinant SC SCH (21:52)
[2016-12-16] MEDS: Rosuvastatin Calcium 2.5 mg Tab PO SCH (21:52)
[2016-12-17] MEDS: Meropenem 500 MG in Sodium Chloride 0.9% 100 ML IVPB SCH ×2 (06:38→22:49)
[2016-12-17] MEDS: Levothyroxine 100 MCG TAB PO SCH (06:38)
[2016-12-17] MEDS: (Novolog) Insulin Aspart, Recombinant 100 u/ml 10 ml vial SC SCH ×4 (07:22→22:51)
[2016-12-17 07:31] LABS: BASO # 0.1 K/uL (0.0-0.2); BASO % 0.6 % (0.0-2.0); CHLORIDE 108 mmol/L (98-107); EOS # 0.6 K/uL (0.0-0.7); EOS % 7.1 % (0.0-4.0); HEMATOCRIT 33.2 % (35.0-51.0); LYMPH # 2.7 K/uL (1.0-4.3); LYMPH % 33.5 % (20.0-40.0); MEAN CELL VOLUME 76.3 fL (80.0-94.0); MEAN CORPUSCULAR HEMOGLOBIN 23.8 pg (27.0-31.0); MEAN CORPUSCULAR HGB CONC 31.2 g/dL (33.0-37.0); MEAN PLATELET VOLUME 8.1 fL (7.2-11.7); MONO # 1.2 K/uL (0.0-0.8); MONO % 15.1 % (0.0-10.0); NRBC % 0.1 % (0.0-2.0); POTASSIUM 3.9 mmol/L (3.6-5.2); RED CELL DISTRIBUTION WIDTH 20.6 % (11.5-14.5); SODIUM 138 mmol/L (132-148); WHITE BLOOD COUNT 8.2 K/uL (4.8-10.8)
[2016-12-17 07:33] LABS: GFR AFRICAN-AMERICAN > 60
[2016-12-17 07:34] LABS: ALB/GLOB RATIO 0.8 (1.0-2.1); ALKALINE PHOSPHATASE 102 U/L (38-126); ALT/SGPT 20 U/L (21-72); AST/SGOT 24 U/L (17-59); BILIRUBIN,TOTAL 0.6 mg/dL (0.2-1.3); BLOOD UREA NITROGEN 10 mg/dL (9-20); CALCIUM 8.5 mg/dl (8.6-10.4); CARBON DIOXIDE 22 mmol/L (22-30); GLUCOSE,RANDOM 74 mg/dL (75-110); TOTAL PROTEIN 6.5 g/dL (6.3-8.3)
[2016-12-17] MEDS: Ferrous Sulfate 300 mg/5 mL Liq UD PO SCH ×2 (09:14→18:43)
--- NOTE | 2016-12-17 10:50 | CP.PCM.PN ---
Subjective - Date & Time of Evaluation Date of Evaluation: 12/17/16 Time of Evaluation: 10:49 - Subjective Subjective: seen and examined pt appears confused, lying in bed denies any complaints labs noted Objective - Vital Signs/Intake and Output Vital Signs (last 24 hours): Temp Pulse Resp BP Pulse Ox 97.7 F 63 20 155/63 H 98 12/17/16 08:07 12/17/16 08:07 12/17/16 08:07 12/17/16 08:07 12/17/16 08:07 Intake and Output: 12/17/16 12/17/16 06:59 18:59 Intake Total 1000 Output Total 400 Balance 600 - Medications Medications: Current Medications Amlodipine Besylate (Norvasc) 5 mg PO DAILY [facility] Last Admin: 12/17/16 09:13 Dose: 5 mg Aspirin (Aspirin Chewable) 81 mg PO DAILY [facility] Last Admin: 12/17/16 09:13 Dose: 81 mg Ciprofloxacin (Cipro) 500 mg PO BID [facility] Last Admin: 12/17/16 09:13 Dose: 500 mg Clopidogrel Bisulfate (Plavix) 75 mg PO DAILY [facility] Last Admin: 12/17/16 09:13 Dose: 75 mg Docusate Sodium (Colace) 100 mg PO BID [facility] Last Admin: 12/17/16 09:14 Dose: Not Given Famotidine (Pepcid) 20 mg PO DAILY [facility] Last Admin: 12/17/16 09:13 Dose: 20 mg Ferrous Sulfate (Feosol Liq) 300 mg PO BID [facility] Last Admin: 12/17/16 09:14 Dose: 300 mg Hydralazine HCl (Apresoline) 10 mg IVP Q6H PRN PRN Reason: Systolic Blood Pressure Last Admin: 12/16/16 14:30 Dose: 10 mg Meropenem 500 mg/ Sodium (Chloride) 100 mls @ 100 mls/hr IVPB Q8 [facility] Last Admin: 12/17/16 06:38 Dose: 100 mls/hr Sodium Chloride (Sodium Chloride 0.9%) 1,000 mls @ 50 mls/hr IV .Q20H [facility] Last Admin: 12/15/16 09:30 Dose: 50 mls/hr Dextrose/Sodium Chloride (Dextrose 5%/0.9% Ns 1000 Ml) 1,000 mls @ 75 mls/hr IV .[id number] [facility] Insulin Aspart (Novolog) 0 unit SC ACHS [facility] PRN Reason: Protocol Last Admin: 12/17/16 07:22 Dose: Not Given Insulin Glargine (Lantus) 10 unit SC [facility] Last Admin: 12/16/16 21:52 Dose: 10 units Levothyroxine Sodium (Synthroid) 100 mcg PO DAILY@0630 [facility] Last Admin: 12/17/16 06:38 Dose: 100 mcg Metoprolol Tartrate (Lopressor) 12.5 mg PO 0800,1800 [facility] Last Admin: 12/17/16 08:01 Dose: 12.5 mg Rosuvastatin Calcium (Crestor) 2.5 mg PO HS [facility] Last Admin: 12/16/16 21:52 Dose: 2.5 mg Tramadol HCl (Ultram) 25 mg PO TID PRN PRN Reason: Pain, moderate (4-7) Last Admin: 12/16/16 10:17 Dose: 25 mg - Labs Labs: 12/17/16 06:54 12/17/16 06:54 PT 11.9 SECONDS (9.7-12.2) 12/16/16 13:51 INR 1.1 12/16/16 13:51 APTT 31 SECONDS (21-34) 12/16/16 13:51 - Constitutional Appears: Non-toxic, No Acute Distress, Chronically Ill - Head Exam Head Exam: NORMAL INSPECTION - Eye Exam Eye Exam: Normal appearance - ENT Exam ENT Exam: Mucous Membranes Moist, Normal Exam - Neck Exam Neck Exam: Normal Inspection - Respiratory Exam Respiratory Exam: Clear to Ausculation Bilateral, NORMAL BREATHING PATTERN - Cardiovascular Exam Cardiovascular Exam: REGULAR RHYTHM, RRR - GI/Abdominal Exam GI & Abdominal Exam: Distended, Soft, Normal Bowel Sounds - Extremities Exam Additional comments: left foot dressing Assessment and Plan (1) CKD (chronic kidney disease) stage 3, GFR 30-59 ml/min Status: Acute (2) PVD (peripheral vascular disease) Status: Acute (3) Acute on chronic renal insufficiency Status: Acute - Assessment and Plan (Free Text) Assessment: resolved yadira complex renal cysts plan: monitor renal function post angioplasty outpt follow up for complex renal cysts- will need repeat imaging
[2016-12-17] MEDS ORDERED: Albuterol 0.083% Inhal Sol (2.5 mg/3 mL) UD ONE (12:36)
[2016-12-17] MEDS ORDERED: Ipratropium 0.02% Inhal Soln (0.5 mg/2.5 ml) UD IH ONE (12:38)
[2016-12-17] MEDS ORDERED: Lidocaine 2% Inj (20ml) ONE (13:12)
[2016-12-17] MEDS ORDERED: Midazolam 2 MG/2 ML VIAL ONE ×2 (13:25→13:42)
[2016-12-17] MEDS ORDERED: Dexmedetomidine Hydrochloride 100 mcg/ml (2ML) ONE (13:34)
--- NOTE | 2016-12-17 13:36 | VASCLAB ---
PROCEDURE: Lower Extremity Venous Duplex Exam. HISTORY: non healing left TMA PRIORS: None. TECHNIQUE: Bilateral common femoral, femoral, popliteal and posterior tibial, peroneal and great saphenous veins were evaluated. Flow was assessed with color Doppler, compressibility, assessment of phasic flow and augmentation response. Report prepared by Go Cardoso, CHAVEZ, RVT FINDINGS: RIGHT: 1. Common Femoral Vein: 1.1. Compressibility - Fully compressible: Thrombus - None : Flow - Phasic: Augmentation -Normal: Reflux - None. 2. Femoral Vein: 2.1. Compressibility - Fully compressible: Thrombus - None : Flow - Phasic: Augmentation -Normal: Reflux - None. 3. Popliteal Vein: 3.1. Compressibility - Fully compressible: Thrombus - None : Flow - Phasic: Augmentation -Normal: Reflux - None. 4. Posterior Tibial Vein: 4.1. Compressibility - Fully compressible: Thrombus - None: Flow - Phasic: Augmentation -Normal: Reflux - None. 5. Peroneal Vein: 5.1. Compressibility - Fully compressible: Thrombus - None: Flow - Phasic: Augmentation -Normal: Reflux - None. 6. Great Saphenous Vein: 6.1. Compressibility - Fully compressible: Thrombus - None: Flow - Phasic: Augmentation - Normal: Reflux - None. LEFT: 1. Common Femoral Vein: 1.1. Compressibility - Fully compressible: Thrombus - None: Flow - Phasic: Augmentation -Normal: Reflux - None. 2. Femoral Vein: 2.1. Compressibility - Fully compressible: Thrombus - None: Flow - Phasic: Augmentation -Normal: Reflux - None. 3. Popliteal Vein: 3.1. Compressibility - Fully compressible: Thrombus - None : Flow - Phasic: Augmentation -Normal: Reflux - None. 4. Posterior Tibial Vein: 4.1. Compressibility - Fully compressible: Thrombus - None: Flow - Phasic: Augmentation -Normal: Reflux - None. 5. Peroneal Vein: 5.1. Compressibility - Fully compressible: Thrombus - None: Flow - Phasic: Augmentation -Normal: Reflux - None. 6. Great Saphenous Vein: 6.1. Compressibility - Fully compressible: Thrombus - None: Flow - Phasic: Augmentation - Normal: Reflux - None. OTHER FINDINGS: Right: None significant. Left: None significant. IMPRESSION: Right: No evidence of deep or superficial vein thrombosis of the right lower extremity. Normal valve function noted of the right side. Left: No evidence of deep or superficial vein thrombosis of the left lower extremity. Normal valve function noted of the left side.
--- NOTE | 2016-12-17 13:36 | VASCLAB ---
STUDY DESCRIPTION: HISTORY: eval PAD PRIORS: None. TECHNIQUE: Pulse volume recording waveforms and segmental pressures of bilateral lower extremities at multiple levels were obtained. Ankle Brachial Indices (ABIs) were calculated. Report prepared by CHAVEZ Horton, RVT RIGHT LOWER EXTREMITY: * Brachial artery: Pressure - 123 mmHg. * High thigh: Pressure - mmHg: Ratio - : PVR waveform - Pulsatile * Low thigh: Pressure - mmHg: Ratio - PVR waveform: Pulsatile * Calf: Pressure - 103 mmHg: Ratio - 0.72 PVR waveform: Pulsatile * Posterior tibial Artery: Pressure - 49 mmHg: Ratio - 0.34 PVR waveform: Reduced * Dorsalis pedis Artery: Pressure - 99 mmHg: Ratio - 0.69 PVR waveform: Reduced * Great toe: Pressure - mmHg: Ratio - PVR waveform: Ankle brachial index (MARIA ESTHER): 0.69 LEFT LOWER EXTREMITY: * Brachial artery: Pressure - mmHg. * High thigh: Pressure - mmHg: Ratio - : PVR waveform - Pulsatile * Low thigh: Pressure - mmHg: Ratio - PVR waveform: Pulsatile * Calf: Pressure - mmHg: Ratio - PVR waveform: Pulsatile * Posterior tibial Artery: Pressure - mmHg: Ratio - PVR waveform: Reduced * Dorsalis pedis Artery: Pressure - mmHg: Ratio - PVR waveform: Reduced * Great toe: Pressure - mmHg: Ratio - PVR waveform: Ankle brachial index (MARIA ESTHER): 0.76 OTHER FINDINGS: Right: Left: IMPRESSION: Right: This exam reveals moderately decreased perfusion of the right lower extremity, noted at the iliac and tibial artery levels. Left: This exam reveals moderately decreased perfusion of the left lower extremity, noted at the iliac and tibial artery levels. Recommend CT angiogram.
[2016-12-17] MEDS ORDERED: Etomidate 20 mg/10ml Inj IV ONE (13:47)
--- NOTE | 2016-12-17 14:30 | PCM.SURG1 ---
Surgeon's Initial Post Op Note - Surgeon's Notes Surgeon: santos [employer]sembler [employer] Spider: 0 Type of Anesthesia: IV Sedation Anesthesia Administered By: jose j Pre-Operative Diagnosis: non healing tma Operative Findings: previous stnets widely patnet. severe tibial disease- reconstituted DP less than 3 inches. distal PT reconstituted with disease into foot Post-Operative Diagnosis: same Operation Performed: aortofemoral angiogram via right groin with selective catherization of left femoral artery Specimen/Specimens Removed: 0 Estimated Blood Loss: EBL {In ML}: 50 Blood Products Given: N/A Drains Used: No Drains Post-Op Condition: Good Date of Surgery/Procedure: 12/17/16 Time of Surgery/Procedure: 14:30
--- NOTE | 2016-12-17 15:50 | CP.PCM.PN ---
Subjective - Date & Time of Evaluation Date of Evaluation: 12/17/16 Time of Evaluation: 09:00 - Subjective Subjective: 81 year old male with past medical history of CAD, CHF, DMII, HTN, hyperlipidemia, arthritis, and hypothyroidism was sent in by Dr. Gaytan for a non -healing TMA (transmetatarsal amputation) on 12/12/16. Patient was examined at bedside. Patient is oriented to person and place but not time. Patient states he does have left foot pain. Objective - Vital Signs/Intake and Output Vital Signs (last 24 hours): Temp Pulse Resp BP Pulse Ox 97.7 F 63 20 155/63 H 98 12/17/16 08:07 12/17/16 08:07 12/17/16 13:35 12/17/16 08:07 12/17/16 13:35 Intake and Output: 12/17/16 12/17/16 06:59 18:59 Intake Total 1000 Output Total 400 Balance 600 - Medications Medications: Current Medications Amlodipine Besylate (Norvasc) 10 mg PO DAILY [facility] Aspirin (Aspirin Chewable) 81 mg PO DAILY [facility] Last Admin: 12/17/16 09:13 Dose: 81 mg Ciprofloxacin (Cipro) 500 mg PO BID [facility] Last Admin: 12/17/16 09:13 Dose: 500 mg Clopidogrel Bisulfate (Plavix) 75 mg PO DAILY [facility] Last Admin: 12/17/16 09:13 Dose: 75 mg Docusate Sodium (Colace) 100 mg PO BID [facility] Last Admin: 12/17/16 09:14 Dose: Not Given Famotidine (Pepcid) 20 mg PO DAILY [facility] Last Admin: 12/17/16 09:13 Dose: 20 mg Ferrous Sulfate (Feosol Liq) 300 mg PO BID [facility] Last Admin: 12/17/16 09:14 Dose: 300 mg Hydralazine HCl (Apresoline) 10 mg IVP Q6H PRN PRN Reason: Systolic Blood Pressure Last Admin: 12/16/16 14:30 Dose: 10 mg Meropenem 500 mg/ Sodium (Chloride) 100 mls @ 100 mls/hr IVPB Q8 [facility] Last Admin: 12/17/16 06:38 Dose: 100 mls/hr Dextrose/Sodium Chloride (Dextrose 5%/0.9% Ns 1000 Ml) 1,000 mls @ 75 mls/hr IV .[id number] [facility] Insulin Aspart (Novolog) 0 unit SC ACHS [facility] PRN Reason: Protocol Last Admin: 12/17/16 11:44 Dose: Not Given Insulin Glargine (Lantus) 10 unit SC HS [facility] Last Admin: 12/16/16 21:52 Dose: 10 units Levothyroxine Sodium (Synthroid) 100 mcg PO DAILY@0630 [facility] Last Admin: 12/17/16 06:38 Dose: 100 mcg Losartan Potassium (Cozaar) 100 mg PO DAILY [facility] Metoprolol Tartrate (Lopressor) 12.5 mg PO 0800,1800 [facility] Last Admin: 12/17/16 08:01 Dose: 12.5 mg Rosuvastatin Calcium (Crestor) 2.5 mg PO HS [facility] Last Admin: 12/16/16 21:52 Dose: 2.5 mg Tramadol HCl (Ultram) 25 mg PO TID PRN PRN Reason: Pain, moderate (4-7) Last Admin: 12/16/16 10:17 Dose: 25 mg - Labs Labs: 12/17/16 06:54 12/17/16 06:54 PT 11.9 SECONDS (9.7-12.2) 12/16/16 13:51 INR 1.1 12/16/16 13:51 APTT 31 SECONDS (21-34) 12/16/16 13:51 - Constitutional Appears: No Acute Distress - Respiratory Exam Respiratory Exam: Clear to Ausculation Bilateral - Cardiovascular Exam Cardiovascular Exam: REGULAR RHYTHM - GI/Abdominal Exam GI & Abdominal Exam: Soft, Normal Bowel Sounds - Extremities Exam Extremities Exam: Tenderness Additional comments: Left foot tenderness. - Neurological Exam Neurological Exam: absent: Oriented x3 (Oriented to person and place) Assessment and Plan (1) Infection of metatarsal as complication of amputation Assessment & Plan: Likely secondary to PAD Podiatry Dr. Gaytan consulted. Podiatry plans to follow while patient is hospitalized. - Patient had TMA 10/17/[address] Gaytan. -Tramadol 25mg po tid prn pain Infectious Disease- Dr. Galindo- help appreciated. -Wound culture 12/12/16: Pseudomononas Aeruginosa, Enterococcus faecalis -Currently on Meropenem 500 mg IV Q8h [facility] day 5 and Ciprofloxacin 500mg PO Q12H day [address] Brown consulted- help appreciated. -Patient is s/p aortofemoral angiogram via right groin with selective catherization of left femoral artery 12/17/16. -Patient for possible femoral bypass with Dr. Brown. Surgery planning. - Continue Plavix 75 mg PO daily - Continue Aspirin 81 mg PO daily Imaging: Abdominal Angiography: CTA ABDOMEN PELVIS:1. Moderate calcific plaque throughout the abdominal aorta without stenosis. 2. Severe calcific plaqueat the origin of the celiac artery with severe stenosis of the celiac artery. There is poststenotic dilatation. 3. There is moderate stenosis of the origin of the superior mesenteric artery. 4. Both renal arteries have moderate stenosis at the origin. LEFT LOWER EXTREMITY CT ANGIOGRAM:1. Unremarkable common femoral artery. 2. Patent distal SFA stent. 3. Popliteal artery has moderate diffuse stenosis. 4. Left runoff shows patent anterior tibial artery. Posterior tibial artery and peroneal artery believed to be occluded. RIGHT LOWER EXTREMITY CTA:1. Common femoral artery is unremarkable 2. Moderate calcific plaque throughout the SFA with there is a moderate stenosis in the mid SFA. 3. Moderate stenosis of popliteal artery 4. Unremarkable anterior tibial artery. Posterior tibial artery and peroneal artery believed to be occluded. NONVASCULAR FINDINGS: Prostate measures 6.7 centimeter AP x 5.4 centimeter transverse with mass effect on the urinary bladder. On last visit: Arterial doppler: 1.) Occluded left posterior tibial artery. No flow detected throughout the vessel. 2.) Continuous monophasic waveforms, beginning at left superficial femoral artery level. Calcific plaques notted throughout bilateral lower extremities. Slightly increased velocities due to vessel narrowing. No evidence of arterial occlusions of bilateral extremity arteries above the knee. (see full report) s/p angiogram - aortofemoral angiogram via right groin, selective angiogram left femoral artery. pathway atherectomy. 40% proximal sfa occlusion and 100% mid and distal sfa occlusion (see full report). Status: Acute (2) PVD (peripheral vascular disease) Assessment & Plan: Vascular surgeon Dr. Brown consulted- help appreciated. -Patient is s/p aortofemoral angiogram via right groin with selective catherization of left femoral artery 12/17/16. -Patient for possible femoral bypass with Dr. Brown. Surgery planning. - Continue Plavix 75 mg PO daily - Continue Aspirin 81 mg PO daily Status: Acute (3) Bacteremia Assessment & Plan: ID consult placed- Dr. Galindo- help appreciated. Blood Cx positive for Corynebacterium on 12/11/16 X2. Continue 500mg Ciprofloxacin PO bid Continue 500mg Meropenem q8 Status: Acute (4) Congestive heart failure (CHF) Assessment & Plan: Cardio consult placed- Dr. Dobson- help appreciated. Consult placed for cardiac clearance prior to vascular procedure. f/u ECHO -Hold home lasix 20 mg PO daily secondary to acute on chronic kidney injury - Continue Lopressor 12.5 mg PO BID - Continue Losartan 100 mg PO mcg PO daily - Continue Amlodipine 10 mg PO daily -CXR: No evidence of new infiltrate or consolidation in the lungs. No significant pleural effusion or pneumothorax apparent. Status: Chronic (5) Coronary artery disease Assessment & Plan: Cardio consult placed- Dr. Dobson- help appreciated. Consult placed for cardiac clearance prior to vascular procedure. f/u ECHO Aspirin 81 mg PO daily Plavux 75 mg PO daily Crestor 2.5 mg PO HS Status: Chronic (6) Hypothyroidism Assessment & Plan: -Continue Synthroid 100 mcg po AM -TSH 6.33, Free T4 0.96 Status: Chronic (7) Diabetes mellitus Assessment & Plan: -HgbA1c 7.2 -Accuchecks ACHS -RISS -Lantus 10units HS - confirmed by pharmacy Status: Chronic (8) Hypercholesteremia Assessment & Plan: -LDL 125, HDL 24, Cholesterol 187, Triglycerides 208 -Crestor 2.5mg po hs Status: Chronic (9) Acute on chronic renal insufficiency Assessment & Plan: -Improving -BUN/CR 10/0.9. 12/17/16 - f/u labs this AM -Continue D5% Normal saline 75cc/hr IV -Nephrology, Dr. Carmona consulted. Recommends IV fluids prior to angio and close renal function follow-up post procedure -Renal US: Bilateral renal cysts, some of which are mildly complex containing calcifications and septations (see full report) -Per Dr. Carmona, may need kidney CT in future to evaluate complex cysts Status: Acute (10) Hypertension Assessment & Plan: -Hydralazine 10mg ivp q6 prn SBP > 160 -Losartan 50mg po daily -Metprolol 12.5mg po bid Status: Chronic (11) Iron deficiency anemia Assessment & Plan: -Feosol 300mg po bid Status: Acute (12) Prophylactic measure Assessment & Plan: -Heparin 5000u sc q12 -Protonix 40mg po daily -SCD c/i -PT/OT -Heart healthy moderate consistent carb renal diet -Palliative Care Consult- Full Code. -Plan to discuss goals of care with son with CRIMINAL INVESTIGATOR, Eliana Escudero. Status: Acute
--- NOTE | 2016-12-17 17:14 | VAS ---
DATE: 12/17/2016 PREOPERATIVE DIAGNOSIS: Nonhealing transmetatarsal amputation site, left foot. PROCEDURE CARRIED OUT: Aortofemoral angiogram with selective catheterization of left femoral artery via right groin. No intervention undertaken. SURGEON: Elver Brown MD SHIRT FOLDER: None. ANESTHESIOLOGIST: Carmela Andrew CRNA The patient is an 81-year-old man, previous stents in the left superficial femoral artery essentially with nonhealing of a TMA site. OPERATIVE FINDINGS: The aorta, renal arteries and iliac arteries are free of significant occlusive d isease. The proximal portion of the common femoral artery, superficial femoral arteries, profunda fe rojas arteries were widely patent. Detailed pictures below the level of the knee were not obtained o n the right side due to the patient's body habitus and the need to avoid further dye. On the left le g, the previously placed stents were widely patent down to the popliteal. The anterior tibial artery was a major blood vessel running into the foot and this went down to the distal third where it disap peared and reconstituted below the level of the ankle joint in the dorsalis pedis artery that did not fully reconstitute with an arch. The posterior tibial artery also reconstituted distally, but it wa s poor in size and the distal third was the best portion of it. When into the foot, it tended to bec ome diseased. Based on the intraoperative findings, no intervention was undertaken. PLAN: Would be to do a bypass to the foot pending medical evaluation. Elver Brown Jr., MD cc: [id number] TT: 12/17/2016 17:14:00 Confirmation # [id number] Dictation # [id number]
[2016-12-17] MEDS: (Lantus) Insulin Glargine, Recombinant SC SCH (22:50)
[2016-12-17] MEDS: Rosuvastatin Calcium 2.5 mg Tab PO SCH (22:52)
[2016-12-17] MEDS: Dextrose 5%/0.9% NS 1,000 ML IV SCH (22:53)
[2016-12-18] MEDS: Meropenem 500 MG in Sodium Chloride 0.9% 100 ML IVPB SCH ×3 (05:32→21:53)
[2016-12-18] MEDS: Levothyroxine 100 MCG TAB PO SCH (05:39)
--- NOTE | 2016-12-18 06:03 | CP.PCM.PN ---
<Vanessa Hutson - Last Filed: 12/18/16 21:03> Subjective - Date & Time of Evaluation Date of Evaluation: 12/18/16 Time of Evaluation: 07:00 - Subjective Subjective: 81 year old male with past medical history of CAD, CHF, DMII, HTN, hyperlipidemia, arthritis, and hypothyroidism was sent in by Dr. Gaytan for a non -healing TMA (transmetatarsal amputation) on 12/12/16. Patient was examined at bedside. Patient is oriented to person and place but not time. Patient states he does have left foot pain. Objective - Vital Signs/Intake and Output Vital Signs (last 24 hours): Temp Pulse Resp BP Pulse Ox 97.7 F 90 20 189/88 H 96 12/17/16 23:35 12/17/16 23:35 12/17/16 23:35 12/17/16 23:35 12/17/16 23:35 Intake and Output: 12/17/16 12/18/16 18:59 06:59 Intake Total 775 Output Total 500 Balance 275 - Medications Medications: Current Medications Amlodipine Besylate (Norvasc) 10 mg PO DAILY [facility] Aspirin (Aspirin Chewable) 81 mg PO DAILY [facility] Last Admin: 12/17/16 09:13 Dose: 81 mg Ciprofloxacin (Cipro) 500 mg PO BID [facility] Last Admin: 12/17/16 18:43 Dose: 500 mg Clopidogrel Bisulfate (Plavix) 75 mg PO DAILY [facility] Last Admin: 12/17/16 09:13 Dose: 75 mg Docusate Sodium (Colace) 100 mg PO BID [facility] Last Admin: 12/17/16 18:43 Dose: 100 mg Famotidine (Pepcid) 20 mg PO DAILY [facility] Last Admin: 12/17/16 09:13 Dose: 20 mg Ferrous Sulfate (Feosol Liq) 300 mg PO BID [facility] Last Admin: 12/17/16 18:43 Dose: 300 mg Hydralazine HCl (Apresoline) 10 mg IVP Q6H PRN PRN Reason: Systolic Blood Pressure Last Admin: 12/16/16 14:30 Dose: 10 mg Meropenem 500 mg/ Sodium (Chloride) 100 mls @ 100 mls/hr IVPB Q8 [facility] Last Admin: 12/18/16 05:32 Dose: 100 mls/hr Dextrose/Sodium Chloride (Dextrose 5%/0.9% Ns 1000 Ml) 1,000 mls @ 75 mls/hr IV .[id number] [facility] Last Admin: 12/17/16 22:53 Dose: 75 mls/hr Insulin Aspart (Novolog) 0 unit SC ACHS [facility] PRN Reason: Protocol Last Admin: 12/17/16 22:51 Dose: Not Given Insulin Glargine (Lantus) 10 unit SC [facility] Last Admin: 12/17/16 22:50 Dose: Not Given Levothyroxine Sodium (Synthroid) 100 mcg PO DAILY@0630 [facility] Last Admin: 12/18/16 05:39 Dose: 100 mcg Losartan Potassium (Cozaar) 100 mg PO DAILY [facility] Metoprolol Tartrate (Lopressor) 12.5 mg PO 0800,1800 [facility] Last Admin: 12/17/16 18:45 Dose: 12.5 mg Rosuvastatin Calcium (Crestor) 2.5 mg PO [facility] Last Admin: 12/17/16 22:52 Dose: 2.5 mg Tramadol HCl (Ultram) 25 mg PO TID PRN PRN Reason: Pain, moderate (4-7) Last Admin: 12/16/16 10:17 Dose: 25 mg - Labs Labs: 12/17/16 06:54 12/17/16 06:54 PT 11.9 SECONDS (9.7-12.2) 12/16/16 13:51 INR 1.1 12/16/16 13:51 APTT 31 SECONDS (21-34) 12/16/16 13:51 - Constitutional Appears: No Acute Distress - Respiratory Exam Respiratory Exam: Clear to Ausculation Bilateral, NORMAL BREATHING PATTERN - Cardiovascular Exam Cardiovascular Exam: REGULAR RHYTHM - GI/Abdominal Exam GI & Abdominal Exam: Soft, Tenderness, Normal Bowel Sounds - Extremities Exam Extremities Exam: Calf Tenderness Additional comments: Left metatarasal amputation - Neurological Exam Neurological Exam: Awake. 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 Gaytan consulted. Podiatry plans to follow while patient is hospitalized. - Patient had TMA 10/17/[address] Gaytan. -Tramadol 25mg po tid prn pain Infectious Disease- Dr. Galindo- help appreciated. -Wound culture 12/12/16: Pseudomononas Aeruginosa, Enterococcus faecalis -Currently on Meropenem 500 mg IV Q8h MALU day 5 and Ciprofloxacin 500mg PO Q12H day [address] Brown consulted- help appreciated. -Patient is s/p aortofemoral angiogram via right groin with selective catherization of left femoral artery 12/17/16. -Patient for possible femoral bypass with Dr. Brown. Surgery planning. - Continue Plavix 75 mg PO daily - Continue Aspirin 81 mg PO daily Imaging: Abdominal Angiography: CTA ABDOMEN PELVIS:1. Moderate calcific plaque throughout the abdominal aorta without stenosis. 2. Severe calcific plaqueat the origin of the celiac artery with severe stenosis of the celiac artery. There is poststenotic dilatation. 3. There is moderate stenosis of the origin of the superior mesenteric artery. 4. Both renal arteries have moderate stenosis at the origin. LEFT LOWER EXTREMITY CT ANGIOGRAM:1. Unremarkable common femoral artery. 2. Patent distal SFA stent. 3. Popliteal artery has moderate diffuse stenosis. 4. Left runoff shows patent anterior tibial artery. Posterior tibial artery and peroneal artery believed to be occluded. RIGHT LOWER EXTREMITY CTA:1. Common femoral artery is unremarkable 2. Moderate calcific plaque throughout the SFA with there is a moderate stenosis in the mid SFA. 3. Moderate stenosis of popliteal artery 4. Unremarkable anterior tibial artery. Posterior tibial artery and peroneal artery believed to be occluded. NONVASCULAR FINDINGS: Prostate measures 6.7 centimeter AP x 5.4 centimeter transverse with mass effect on the urinary bladder. On last visit: Arterial doppler: 1.) Occluded left posterior tibial artery. No flow detected throughout the vessel. 2.) Continuous monophasic waveforms, beginning at left superficial femoral artery level. Calcific plaques notted throughout bilateral lower extremities. Slightly increased velocities due to vessel narrowing. No evidence of arterial occlusions of bilateral extremity arteries above the knee. (see full report) s/p angiogram - aortofemoral angiogram via right groin, selective angiogram left femoral artery. pathway atherectomy. 40% proximal sfa occlusion and 100% mid and distal sfa occlusion (see full report). Status: Chronic (2) PVD (peripheral vascular disease) Assessment & Plan: Vascular surgeon Dr. Brown consulted- help appreciated. -Patient is s/p aortofemoral angiogram via right groin with selective catherization of left femoral artery 12/17/16. -Patient for possible femoral bypass with Dr. Brown. Surgery planning. - Continue Plavix 75 mg PO daily - Continue Aspirin 81 mg PO daily Status: Chronic (3) Bacteremia Assessment & Plan: ID consult placed- Dr. Galindo- help appreciated. Blood Cx positive for Corynebacterium on 12/11/16 X2. Continue 500mg Ciprofloxacin PO bid Continue 500mg Meropenem q8 Status: Acute (4) Congestive heart failure (CHF) Assessment & Plan: Cardio consult placed- Dr. Dobson- help appreciated. Consult placed for cardiac clearance prior to vascular procedure. f/u ECHO f/u Stress Test -Hold home lasix 20 mg PO daily secondary to acute on chronic kidney injury - Continue Lopressor 12.5 mg PO BID - Continue Losartan 100 mg PO mcg PO daily - Continue Amlodipine 10 mg PO daily -CXR: No evidence of new infiltrate or consolidation in the lungs. No significant pleural effusion or pneumothorax apparent. Status: Chronic (5) Coronary artery disease Assessment & Plan: Cardio consult placed- Dr. Dobson- help appreciated. Consult placed for cardiac clearance prior to vascular procedure. f/u ECHO Aspirin 81 mg PO daily Plavux 75 mg PO daily Crestor 2.5 mg PO HS Status: Chronic (6) Hypothyroidism Assessment & Plan: -Continue Synthroid 100 mcg po AM -TSH 6.33, Free T4 0.96 Status: Chronic (7) Diabetes mellitus Assessment & Plan: -HgbA1c 7.2 -Accuchecks ACHS -RISS -Lantus 10units HS - confirmed by pharmacy Status: Chronic (8) Hypercholesteremia Assessment & Plan: -LDL 125, HDL 24, Cholesterol 187, Triglycerides 208 -Crestor 2.5mg po hs Status: Chronic (9) Acute on chronic renal insufficiency Assessment & Plan: -Improving -BUN/CR 9/0.8 -Continue D5% Normal saline 75cc/hr IV -Nephrology, Dr. Carmona consulted. Recommends IV fluids prior to angio and close renal function follow-up post procedure -Renal US: Bilateral renal cysts, some of which are mildly complex containing calcifications and septations (see full report) -Per Dr. Carmona, may need kidney CT in future to evaluate complex cysts Status: Acute (10) Hypertension Assessment & Plan: -Hydralazine 10mg ivp q6 prn SBP > 160 -Losartan 50mg po daily -Metprolol 12.5mg po bid Status: Chronic (11) Iron deficiency anemia Assessment & Plan: -Feosol 300mg po bid Status: Acute (12) Prophylactic measure Assessment & Plan: -Heparin 5000u sc q12 -Protonix 40mg po daily -SCD c/i -PT/OT -Heart healthy moderate consistent carb renal diet -Palliative Care Consult- Full Code. Status: Acute <Annabel Galindo V - Last Filed: 12/19/16 08:03> Objective - Vital Signs/Intake and Output Vital Signs (last 24 hours): Temp Pulse Resp BP Pulse Ox 97.9 F 63 20 168/72 H 97 12/18/16 23:25 12/18/16 23:25 12/18/16 23:25 12/18/16 23:25 12/18/16 23:25 Intake and Output: 12/19/16 12/19/16 06:59 18:59 Intake Total 880 Output Total 1000 Balance -120 - Medications Medications: Current Medications Amlodipine Besylate (Norvasc) 10 mg PO DAILY [facility] Last Admin: 12/18/16 09:52 Dose: 10 mg Aspirin (Aspirin Chewable) 81 mg PO DAILY [facility] Last Admin: 12/18/16 09:52 Dose: 81 mg Ciprofloxacin (Cipro) 500 mg PO BID [facility] Last Admin: 12/18/16 18:03 Dose: 500 mg Clopidogrel Bisulfate (Plavix) 75 mg PO DAILY [facility] Last Admin: 12/18/16 09:52 Dose: 75 mg Docusate Sodium (Colace) 100 mg PO BID [facility] Last Admin: 12/18/16 18:04 Dose: 100 mg Famotidine (Pepcid) 20 mg PO DAILY [facility] Last Admin: 12/18/16 09:52 Dose: 20 mg Ferrous Sulfate (Feosol Liq) 300 mg PO BID [facility] Last Admin: 12/18/16 18:03 Dose: 300 mg Hydralazine HCl (Apresoline) 10 mg IVP Q6H PRN PRN Reason: Systolic Blood Pressure Last Admin: 12/16/16 14:30 Dose: 10 mg Meropenem 500 mg/ Sodium (Chloride) 100 mls @ 100 mls/hr IVPB Q8 [facility] Last Admin: 12/19/16 05:33 Dose: 100 mls/hr Dextrose/Sodium Chloride (Dextrose 5%/0.9% Ns 1000 Ml) 1,000 mls @ 75 mls/hr IV .[id number] [facility] Last Admin: 12/18/16 21:50 Dose: 75 mls/hr Insulin Aspart (Novolog) 0 unit SC ACHS [facility] PRN Reason: Protocol Last Admin: 12/19/16 07:31 Dose: Not Given Insulin Glargine (Lantus) 10 unit SC [facility] Last Admin: 12/18/16 21:49 Dose: 10 units Levothyroxine Sodium (Synthroid) 100 mcg PO DAILY@0630 [facility] Last Admin: 12/19/16 05:33 Dose: 100 mcg Losartan Potassium (Cozaar) 100 mg PO DAILY [facility] Last Admin: 12/18/16 09:52 Dose: 100 mg Metoprolol Tartrate (Lopressor) 12.5 mg PO 0800,1800 [facility] Last Admin: 12/19/16 07:36 Dose: Not Given Rosuvastatin Calcium (Crestor) 2.5 mg PO [facility] Last Admin: 12/17/16 22:52 Dose: 2.5 mg Tramadol HCl (Ultram) 25 mg PO TID PRN PRN Reason: Pain, moderate (4-7) Last Admin: 12/16/16 10:17 Dose: 25 mg - Labs Labs: 12/18/16 17:35 12/18/16 17:35 PT 11.9 SECONDS (9.7-12.2) 12/16/16 13:51 INR 1.1 12/16/16 13:51 APTT 31 SECONDS (21-34) 12/16/16 13:51 Attending/Attestation - Attestation I have personally seen and examined this patient.: Yes I have fully participated in the care of the patient.: Yes I have reviewed all pertinent clinical information, including history, physical exam and plan: Yes Notes (Text): This is a late computer entry for 12/18/16. Patient seen, examined, and case discussed with day-time resident. Patient completed echocardiogram this morning. Patient seen in the afternoon; patient is awake, alert, and indicating pain. Per cardiology, patient to be NPO for stress test tomorrow. 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 Gaytan consulted. Podiatry plans to follow while patient is hospitalized. - Patient had TMA 10/17/[address] Gaytan. -Tramadol 25mg po tid prn pain Infectious Disease- Dr. Galindo- help appreciated. -Wound culture 12/12/16: Pseudomononas Aeruginosa, Enterococcus faecalis -Currently on Meropenem 500 mg IV Q8h MALU (active since 12/13/16) and Ciprofloxacin 500mg PO Q12H (active since 12/15/16) Vascular surgeon Dr. Brown consulted- help appreciated. -Patient is s/p aortofemoral angiogram via right groin with selective catherization of left femoral artery 12/17/16. -Patient for possible femoral bypass with Dr. Brown. Surgery planning/ tenatively for - Per surgery to determine if patient will need to continue Plavix and Aspirin prior to procedure Imaging: Abdominal Angiography (12/12/16): CTA ABDOMEN PELVIS:1. Moderate calcific plaque throughout the abdominal aorta without stenosis. 2. 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 There is poststenotic dilatation. 3. There is moderate stenosis of the origin of the superior mesenteric artery. 4. Both renal arteries have moderate stenosis at the origin. LEFT LOWER EXTREMITY CT ANGIOGRAM:1. Unremarkable common femoral artery. 2. Patent distal SFA stent. 3. Popliteal artery has moderate diffuse stenosis. 4. Left runoff shows patent anterior tibial artery. Posterior tibial artery and peroneal artery believed to be occluded. RIGHT LOWER EXTREMITY CTA:1. Common femoral artery is unremarkable 2. Moderate calcific plaque throughout the SFA with there is a moderate stenosis in the mid SFA. 3. Moderate stenosis of popliteal artery 4. Unremarkable anterior tibial artery. Posterior tibial artery and peroneal artery believed to be occluded. NONVASCULAR FINDINGS: Prostate measures 6.7 centimeter AP x 5.4 centimeter transverse with mass effect on the urinary bladder. On last visit: Arterial doppler: 1.) Occluded left posterior tibial artery. No flow detected throughout the vessel. 2.) Continuous monophasic waveforms, beginning at left superficial femoral artery level. Calcific plaques notted throughout bilateral lower extremities. Slightly increased velocities due to vessel narrowing. No evidence of arterial occlusions of bilateral extremity arteries above the knee. (see full report) s/p angiogram - aortofemoral angiogram via right groin, selective angiogram left femoral artery. pathway atherectomy. 40% proximal sfa occlusion and 100% mid and distal sfa occlusion (see full report). Status: Chronic (2) PVD (peripheral vascular disease) Assessment & Plan: Vascular surgeon Dr. Brown consulted- help appreciated. -Patient is s/p aortofemoral angiogram via right groin with selective catherization of left femoral artery 12/17/16. -Patient for possible femoral bypass with Dr. Brown. Surgery planning. - Continue Plavix 75 mg PO daily - Continue Aspirin 81 mg PO daily Status: Chronic (3) Bacteremia Assessment & Plan: * ID consult placed- Dr. Galindo- help appreciated. * Blood Cx positive for Corynebacterium on 12/11/16 X2. * Continue Ciprofloxacin 500mg PO bid (active since 12/15/16) * Continue Meropenem 500mg q8 (active since 12/13/16) Status: Acute (4) Congestive heart failure (CHF) Assessment & Plan: Cardio consult placed- Dr. Dobson- kasey appreciated. Consult placed for cardiac clearance prior to vascular procedure. Patient to NPO for stress test tomorrow f/u ECHO completed this morning-->followup report prior echo (08/30/16): left ventriculer ejection fraction: EF: 60-65%, mild concentric left ventricular hypetropgy, left atrium mildly dilated, modewrate MAC with restricted post MV leaflet excursion, mild MR noted. Mild tricupsid regurgitation Medications: Aspirin 81mg PO daily Lopressor 12.5mg PO bid Losartan 100mg PO daily Norvasc 10mg Po daily Crestor 2.5mg PO qHS CXR: No evidence of new infiltrate or consolidation in the lungs. No significant pleural effusion or pneumothorax apparent. Status: Chronic (5) Coronary artery disease Assessment & Plan: Cardio consult placed- Dr. Dobson- kasey appreciated. Consult placed for cardiac clearance prior to vascular procedure. Patient to NPO for stress test tomorrow f/u ECHO completed this morning-->followup report prior echo (08/30/16): left ventriculer ejection fraction: EF: 60-65%, mild concentric left ventricular hypetropgy, left atrium mildly dilated, modewrate MAC with restricted post MV leaflet excursion, mild MR noted. Mild tricupsid regurgitation Medications: Aspirin 81mg PO daily Lopressor 12.5mg PO bid Losartan 100mg PO daily Norvasc 10mg Po daily Crestor 2.5mg PO qHS Status: Chronic (6) Hypothyroidism Assessment & Plan: -Continue Synthroid 100 mcg po AM -TSH 6.33, Free T4 0.96 Status: Chronic (7) Diabetes mellitus Assessment & Plan: -HgbA1c 7.2 -Accuchecks ACHS -Novolog insulin sliding scale -Lantus 10units HS - confirmed by pharmacy Status: Chronic (8) Hypercholesteremia Assessment & Plan: -LDL 125, HDL 24, Cholesterol 187, Triglycerides 208 -Crestor 2.5mg po hs Status: Chronic (9) Acute on chronic renal insufficiency Assessment & Plan: Nephrology, Dr. Carmona consulted. Recommends IV fluids prior to angio and close renal function follow-up post procedure -BUN/CR 9/0.8 -Continue D5% Normal saline 75cc/hr IV per surgery -Nephrology, Dr. Carmona consulted. Recommends IV fluids prior to angio and close renal function follow-up post procedure -Renal US: Bilateral renal cysts, some of which are mildly complex containing calcifications and septations (see full report) -Per Dr. Carmona, may need kidney CT in future to evaluate complex cysts Status: Acute (10) Hypertension Assessment & Plan: Hydralazine 10mg ivp q6 prn SBP > 160 Losartan 50mg po daily Metoprolol 12.5mg po bid Norvasc 10mg Po daily Monitor vital signs and adjust Status: Chronic (11) Iron deficiency anemia Assessment & Plan: Feosol 300mg po bid Status: Acute (12) Prophylactic measure Assessment & Plan: off anticoagulation; anticoagulation per surgery Protonix 40mg po daily SCD c/i PT/OT Heart healthy moderate consistent carb renal diet Palliative Care Consult- Full Code. pepcid 20mg Po daily Colace 100mg PO bid Status: Acute
[2016-12-18] MEDS: (Novolog) Insulin Aspart, Recombinant 100 u/ml 10 ml vial SC SCH ×4 (08:04→21:56)
[2016-12-18] MEDS: Ferrous Sulfate 300 mg/5 mL Liq UD PO SCH ×2 (09:53→18:03)
[2016-12-18] MEDS: Dextrose 5%/0.9% NS 1,000 ML IV SCH ×2 (09:54→21:50)
--- NOTE | 2016-12-18 10:11 | CP.PCM.CON ---
History of Present Illness - History of Present Illness History of Present Illness: patient seen / eamined. patient has cardiovascular risk factors. will need risk assessment with stress test. NPO after midnight. Past Patient History - Infectious Disease Hx of Infectious Diseases: None - Tetanus Immunizations Tetanus Immunization: Unknown - Past Medical History & Family History Past Medical History?: Yes Past Family History: Reviewed and not pertinent - Past Social History Smoking Status: Former Smoker - CARDIAC Hx Hypercholesterolemia: Yes Hx Hypertension: Yes - PULMONARY Hx Respiratory Disorders: No - NEUROLOGICAL HX Cerebrovascular Accident: Yes - HEENT Hx HEENT Problems: Yes (glasses) Hx Cataracts: Yes (right) - RENAL Hx Chronic Kidney Disease: No - ENDOCRINE/METABOLIC Hx Hypothyroidism: Yes - HEMATOLOGICAL/ONCOLOGICAL Hx Blood Disorders: No - INTEGUMENTARY Hx Dermatological Problems: No - MUSCULOSKELETAL/RHEUMATOLOGICAL Hx Arthritis: Yes - GASTROINTESTINAL Hx Gastrointestinal Disorders: No - GENITOURINARY/GYNECOLOGICAL Hx Genitourinary Disorders: Yes (BPH) Hx Incontinence: Yes Hx Prostate Problems: Yes (prostate surgery in 2013) - PSYCHIATRIC Hx Substance Use: No - SURGICAL HISTORY Hx Cholecystectomy: Yes - ANESTHESIA Hx Anesthesia: Yes Hx Anesthesia Reactions: No Hx Malignant Hyperthermia: No Meds Allergies/Adverse Reactions: Allergies Allergy/AdvReac Type Severity Reaction Status Date / Time No Known Allergies Allergy Verified 12/11/16 18:17 - Medications Medications: Current Medications Amlodipine Besylate (Norvasc) 10 mg PO DAILY [facility] Last Admin: 12/18/16 09:52 Dose: 10 mg Aspirin (Aspirin Chewable) 81 mg PO DAILY [facility] Last Admin: 12/18/16 09:52 Dose: 81 mg Ciprofloxacin (Cipro) 500 mg PO BID [facility] Last Admin: 12/18/16 09:52 Dose: 500 mg Clopidogrel Bisulfate (Plavix) 75 mg PO DAILY [facility] Last Admin: 12/18/16 09:52 Dose: 75 mg Docusate Sodium (Colace) 100 mg PO BID [facility] Last Admin: 12/18/16 09:52 Dose: 100 mg Famotidine (Pepcid) 20 mg PO DAILY [facility] Last Admin: 12/18/16 09:52 Dose: 20 mg Ferrous Sulfate (Feosol Liq) 300 mg PO BID [facility] Last Admin: 12/18/16 09:53 Dose: 300 mg Hydralazine HCl (Apresoline) 10 mg IVP Q6H PRN PRN Reason: Systolic Blood Pressure Last Admin: 12/16/16 14:30 Dose: 10 mg Meropenem 500 mg/ Sodium (Chloride) 100 mls @ 100 mls/hr IVPB Q8 [facility] Last Admin: 12/18/16 05:32 Dose: 100 mls/hr Dextrose/Sodium Chloride (Dextrose 5%/0.9% Ns 1000 Ml) 1,000 mls @ 75 mls/hr IV .[id number] [facility] Last Admin: 12/18/16 09:54 Dose: Not Given Insulin Aspart (Novolog) 0 unit SC ACHS [facility] PRN Reason: Protocol Last Admin: 12/18/16 08:04 Dose: Not Given Insulin Glargine (Lantus) 10 unit SC [facility] Last Admin: 12/17/16 22:50 Dose: Not Given Levothyroxine Sodium (Synthroid) 100 mcg PO DAILY@0630 [facility] Last Admin: 12/18/16 05:39 Dose: 100 mcg Losartan Potassium (Cozaar) 100 mg PO DAILY [facility] Last Admin: 12/18/16 09:52 Dose: 100 mg Metoprolol Tartrate (Lopressor) 12.5 mg PO 0800,1800 [facility] Last Admin: 12/18/16 08:15 Dose: 12.5 mg Rosuvastatin Calcium (Crestor) 2.5 mg PO [facility] Last Admin: 12/17/16 22:52 Dose: 2.5 mg Tramadol HCl (Ultram) 25 mg PO TID PRN PRN Reason: Pain, moderate (4-7) Last Admin: 12/16/16 10:17 Dose: 25 mg Results - Vital Signs Recent Vital Signs: Last Vital Signs Temp 98.4 F 12/18/16 08:14 Pulse 75 12/18/16 08:14 Resp 20 12/18/16 08:14 BP 173/74 H 12/18/16 08:14 Pulse Ox 99 12/18/16 08:14 - Labs Result Diagrams: 12/17/16 06:54 12/17/16 06:54 Labs: Laboratory Results - last 24 hr 12/18/16 06:33 POC Glucose (mg/dL) 102
--- NOTE | 2016-12-18 10:11 | CP.PCM.CON ---
History of Present Illness - History of Present Illness History of Present Illness: Cardiovascular risk assessment evalaution requested. Patient is a 81 year old male with PMH HTN, DM, PAD who presents with nohealing L TMA. The patient had repeat angiography performed revealing severe SFA and outflow disease. The patient is being considered for lower extremity bypass. The patient denies current chest pain, but is not mobile. Review of Systems - Review of Systems Systems not reviewed;Unavailable: Language Barrier Past Patient History - Infectious Disease Hx of Infectious Diseases: None - Tetanus Immunizations Tetanus Immunization: Unknown - Past Medical History & Family History Past Medical History?: Yes Past Family History: Reviewed and not pertinent - Past Social History Smoking Status: Former Smoker - CARDIAC Hx Hypercholesterolemia: Yes Hx Hypertension: Yes - PULMONARY Hx Respiratory Disorders: No - NEUROLOGICAL HX Cerebrovascular Accident: Yes - HEENT Hx HEENT Problems: Yes (glasses) Hx Cataracts: Yes (right) - RENAL Hx Chronic Kidney Disease: No - ENDOCRINE/METABOLIC Hx Hypothyroidism: Yes - HEMATOLOGICAL/ONCOLOGICAL Hx Blood Disorders: No - INTEGUMENTARY Hx Dermatological Problems: No - MUSCULOSKELETAL/RHEUMATOLOGICAL Hx Arthritis: Yes - GASTROINTESTINAL Hx Gastrointestinal Disorders: No - GENITOURINARY/GYNECOLOGICAL Hx Genitourinary Disorders: Yes (BPH) Hx Incontinence: Yes Hx Prostate Problems: Yes (prostate surgery in 2013) - PSYCHIATRIC Hx Substance Use: No - SURGICAL HISTORY Hx Cholecystectomy: Yes - ANESTHESIA Hx Anesthesia: Yes Hx Anesthesia Reactions: No Hx Malignant Hyperthermia: No Meds Allergies/Adverse Reactions: Allergies Allergy/AdvReac Type Severity Reaction Status Date / Time No Known Allergies Allergy Verified 12/11/16 18:17 - Medications Medications: Current Medications Amlodipine Besylate (Norvasc) 10 mg PO DAILY [facility] Last Admin: 12/18/16 09:52 Dose: 10 mg Aspirin (Aspirin Chewable) 81 mg PO DAILY [facility] Last Admin: 12/18/16 09:52 Dose: 81 mg Ciprofloxacin (Cipro) 500 mg PO BID [facility] Last Admin: 12/18/16 09:52 Dose: 500 mg Clopidogrel Bisulfate (Plavix) 75 mg PO DAILY [facility] Last Admin: 12/18/16 09:52 Dose: 75 mg Docusate Sodium (Colace) 100 mg PO BID [facility] Last Admin: 12/18/16 09:52 Dose: 100 mg Famotidine (Pepcid) 20 mg PO DAILY [facility] Last Admin: 12/18/16 09:52 Dose: 20 mg Ferrous Sulfate (Feosol Liq) 300 mg PO BID [facility] Last Admin: 12/18/16 09:53 Dose: 300 mg Hydralazine HCl (Apresoline) 10 mg IVP Q6H PRN PRN Reason: Systolic Blood Pressure Last Admin: 12/16/16 14:30 Dose: 10 mg Meropenem 500 mg/ Sodium (Chloride) 100 mls @ 100 mls/hr IVPB Q8 [facility] Last Admin: 12/18/16 05:32 Dose: 100 mls/hr Dextrose/Sodium Chloride (Dextrose 5%/0.9% Ns 1000 Ml) 1,000 mls @ 75 mls/hr IV .[id number] [facility] Last Admin: 12/18/16 09:54 Dose: Not Given Insulin Aspart (Novolog) 0 unit SC [facility] PRN Reason: Protocol Last Admin: 12/18/16 08:04 Dose: Not Given Insulin Glargine (Lantus) 10 unit SC [facility] Last Admin: 12/17/16 22:50 Dose: Not Given Levothyroxine Sodium (Synthroid) 100 mcg PO DAILY@0630 [facility] Last Admin: 12/18/16 05:39 Dose: 100 mcg Losartan Potassium (Cozaar) 100 mg PO DAILY [facility] Last Admin: 12/18/16 09:52 Dose: 100 mg Metoprolol Tartrate (Lopressor) 12.5 mg PO 0800,1800 [facility] Last Admin: 12/18/16 08:15 Dose: 12.5 mg Rosuvastatin Calcium (Crestor) 2.5 mg PO [facility] Last Admin: 12/17/16 22:52 Dose: 2.5 mg Tramadol HCl (Ultram) 25 mg PO TID PRN PRN Reason: Pain, moderate (4-7) Last Admin: 12/16/16 10:17 Dose: 25 mg Physical Exam - Constitutional Appears: Non-toxic - Head Exam Head Exam: NORMAL INSPECTION - Eye Exam Eye Exam: Normal appearance - ENT Exam ENT Exam: Mucous Membranes Moist - Neck Exam Neck exam: Positive for: Full Rom - Respiratory Exam Respiratory Exam: NORMAL BREATHING PATTERN - Cardiovascular Exam Cardiovascular Exam: REGULAR RHYTHM - GI/Abdominal Exam GI & Abdominal Exam: Normal Bowel Sounds - Rectal Exam Rectal Exam: Deferred - Extremities Exam Extremities exam: Positive for: pedal edema - Back Exam Back exam: NORMAL INSPECTION - Neurological Exam Neurological exam: Alert, Oriented x3 - Psychiatric Exam Psychiatric exam: Normal Affect - Skin Skin Exam: Normal Color Results - Vital Signs Recent Vital Signs: Last Vital Signs Temp 98.4 F 12/18/16 08:14 Pulse 75 12/18/16 08:14 Resp 20 12/18/16 08:14 BP 173/74 H 12/18/16 08:14 Pulse Ox 99 12/18/16 08:14 - Labs Result Diagrams: 12/23/16 19:58 12/23/16 19:58 Labs: Laboratory Results - last 24 hr 12/18/16 06:33 POC Glucose (mg/dL) 102 - EKG Data EKG Interpreted by: Myself Assessment & Plan (1) Pre-operative cardiovascular examination Assessment and Plan: patient has significant cardiovascular risk factors. recommend nulcear stress test prior to surgery Status: Acute (2) Coronary artery disease Assessment and Plan: for stress test Status: Chronic (3) PVD (peripheral vascular disease) Assessment and Plan: will need lower extremity revascularization Status: Chronic (4) Diabetes mellitus Assessment and Plan: risk factor for CAD Status: Chronic Priority: Medium (5) Hypertension Assessment and Plan: blood pressure control Status: Chronic Priority: Low
--- NOTE | 2016-12-18 12:07 | CP.PCM.PN ---
Subjective - Date & Time of Evaluation Date of Evaluation: 12/18/16 Time of Evaluation: 12:05 - Subjective Subjective: seen and examined, pln for LE bypass noted creatinine stable no events pt denies any v/n/d/cp/sob/dysuria Objective - Vital Signs/Intake and Output Vital Signs (last 24 hours): Temp Pulse Resp BP Pulse Ox 98.4 F 75 20 173/74 H 99 12/18/16 08:14 12/18/16 08:14 12/18/16 08:14 12/18/16 08:14 12/18/16 08:14 Intake and Output: 12/18/16 12/18/16 06:59 18:59 Intake Total 775 Output Total 500 Balance 275 - Medications Medications: Current Medications Amlodipine Besylate (Norvasc) 10 mg PO DAILY [facility] Last Admin: 12/18/16 09:52 Dose: 10 mg Aspirin (Aspirin Chewable) 81 mg PO DAILY [facility] Last Admin: 12/18/16 09:52 Dose: 81 mg Ciprofloxacin (Cipro) 500 mg PO BID [facility] Last Admin: 12/18/16 09:52 Dose: 500 mg Clopidogrel Bisulfate (Plavix) 75 mg PO DAILY [facility] Last Admin: 12/18/16 09:52 Dose: 75 mg Docusate Sodium (Colace) 100 mg PO BID [facility] Last Admin: 12/18/16 09:52 Dose: 100 mg Famotidine (Pepcid) 20 mg PO DAILY [facility] Last Admin: 12/18/16 09:52 Dose: 20 mg Ferrous Sulfate (Feosol Liq) 300 mg PO BID [facility] Last Admin: 12/18/16 09:53 Dose: 300 mg Hydralazine HCl (Apresoline) 10 mg IVP Q6H PRN PRN Reason: Systolic Blood Pressure Last Admin: 12/16/16 14:30 Dose: 10 mg Meropenem 500 mg/ Sodium (Chloride) 100 mls @ 100 mls/hr IVPB Q8 [facility] Last Admin: 12/18/16 05:32 Dose: 100 mls/hr Dextrose/Sodium Chloride (Dextrose 5%/0.9% Ns 1000 Ml) 1,000 mls @ 75 mls/hr IV .[id number] [facility] Last Admin: 12/18/16 09:54 Dose: Not Given Insulin Aspart (Novolog) 0 unit SC [facility] PRN Reason: Protocol Last Admin: 12/18/16 08:04 Dose: Not Given Insulin Glargine (Lantus) 10 unit SC HS [facility] Last Admin: 12/17/16 22:50 Dose: Not Given Levothyroxine Sodium (Synthroid) 100 mcg PO DAILY@0630 [facility] Last Admin: 12/18/16 05:39 Dose: 100 mcg Losartan Potassium (Cozaar) 100 mg PO DAILY [facility] Last Admin: 12/18/16 09:52 Dose: 100 mg Metoprolol Tartrate (Lopressor) 12.5 mg PO 0800,1800 [facility] Last Admin: 12/18/16 08:15 Dose: 12.5 mg Rosuvastatin Calcium (Crestor) 2.5 mg PO HS [facility] Last Admin: 12/17/16 22:52 Dose: 2.5 mg Tramadol HCl (Ultram) 25 mg PO TID PRN PRN Reason: Pain, moderate (4-7) Last Admin: 12/16/16 10:17 Dose: 25 mg - Labs Labs: 12/17/16 06:54 12/17/16 06:54 PT 11.9 SECONDS (9.7-12.2) 12/16/16 13:51 INR 1.1 12/16/16 13:51 APTT 31 SECONDS (21-34) 12/16/16 13:51 - Constitutional Appears: Non-toxic, No Acute Distress, Chronically Ill - Head Exam Head Exam: NORMAL INSPECTION - Eye Exam Eye Exam: Normal appearance - ENT Exam ENT Exam: Mucous Membranes Moist, Normal Exam - Neck Exam Neck Exam: Normal Inspection - Respiratory Exam Respiratory Exam: Clear to Ausculation Bilateral, NORMAL BREATHING PATTERN - Cardiovascular Exam Cardiovascular Exam: REGULAR RHYTHM, RRR - GI/Abdominal Exam GI & Abdominal Exam: Distended, Soft, Normal Bowel Sounds (rt leg dressing no edema) - Neurological Exam Neurological Exam: Alert, Awake, Oriented x3 Assessment and Plan (1) CKD (chronic kidney disease) stage 3, GFR 30-59 ml/min Status: Acute (2) PVD (peripheral vascular disease) Status: Acute (3) Acute on chronic renal insufficiency Status: Acute - Assessment and Plan (Free Text) Assessment: resolved yadira complex renal cysts at risk for contrast nephropathy plan: monitor renal function iv fluids when npo outpt follow up for complex renal cysts- will need repeat imaging w/ contrast
--- NOTE | 2016-12-18 13:01 | CP.PCM.PN ---
Subjective - Date & Time of Evaluation Date of Evaluation: 12/18/16 Time of Evaluation: 13:00 - Subjective Subjective: 81 y/o male was seen and evaluated at bedside for followup of left foot TMA site nonhealing wound. Patient was resting comfortably in bed. Left foot dressing was intact, clean, and dry. Denies pain to LLE. Patient denies any symptoms of N/V/F/SOB/chills and chest pains. Objective - Vital Signs/Intake and Output Vital Signs (last 24 hours): Temp Pulse Resp BP Pulse Ox 98.4 F 75 20 173/74 H 99 12/18/16 08:14 12/18/16 08:14 12/18/16 08:14 12/18/16 08:14 12/18/16 08:14 Intake and Output: 12/18/16 12/18/16 06:59 18:59 Intake Total 775 Output Total 500 Balance 275 - Medications Medications: Current Medications Amlodipine Besylate (Norvasc) 10 mg PO DAILY [facility] Last Admin: 12/18/16 09:52 Dose: 10 mg Aspirin (Aspirin Chewable) 81 mg PO DAILY [facility] Last Admin: 12/18/16 09:52 Dose: 81 mg Ciprofloxacin (Cipro) 500 mg PO BID [facility] Last Admin: 12/18/16 09:52 Dose: 500 mg Clopidogrel Bisulfate (Plavix) 75 mg PO DAILY [facility] Last Admin: 12/18/16 09:52 Dose: 75 mg Docusate Sodium (Colace) 100 mg PO BID [facility] Last Admin: 12/18/16 09:52 Dose: 100 mg Famotidine (Pepcid) 20 mg PO DAILY [facility] Last Admin: 12/18/16 09:52 Dose: 20 mg Ferrous Sulfate (Feosol Liq) 300 mg PO BID [facility] Last Admin: 12/18/16 09:53 Dose: 300 mg Hydralazine HCl (Apresoline) 10 mg IVP Q6H PRN PRN Reason: Systolic Blood Pressure Last Admin: 12/16/16 14:30 Dose: 10 mg Meropenem 500 mg/ Sodium (Chloride) 100 mls @ 100 mls/hr IVPB Q8 [facility] Last Admin: 12/18/16 05:32 Dose: 100 mls/hr Dextrose/Sodium Chloride (Dextrose 5%/0.9% Ns 1000 Ml) 1,000 mls @ 75 mls/hr IV .[id number] [facility] Last Admin: 12/18/16 09:54 Dose: Not Given Insulin Aspart (Novolog) 0 unit SC ACHS [facility] PRN Reason: Protocol Last Admin: 12/18/16 12:11 Dose: Not Given Insulin Glargine (Lantus) 10 unit SC HS [facility] Last Admin: 12/17/16 22:50 Dose: Not Given Levothyroxine Sodium (Synthroid) 100 mcg PO DAILY@0630 [facility] Last Admin: 12/18/16 05:39 Dose: 100 mcg Losartan Potassium (Cozaar) 100 mg PO DAILY [facility] Last Admin: 12/18/16 09:52 Dose: 100 mg Metoprolol Tartrate (Lopressor) 12.5 mg PO 0800,1800 [facility] Last Admin: 12/18/16 08:15 Dose: 12.5 mg Rosuvastatin Calcium (Crestor) 2.[address] [facility] Last Admin: 12/17/16 22:52 Dose: 2.5 mg Tramadol HCl (Ultram) 25 mg PO TID PRN PRN Reason: Pain, moderate (4-7) Last Admin: 12/16/16 10:17 Dose: 25 mg - Labs Labs: 12/17/16 06:54 12/17/16 06:54 PT 11.9 SECONDS (9.7-12.2) 12/16/16 13:51 INR 1.1 12/16/16 13:51 APTT 31 SECONDS (21-34) 12/16/16 13:51 - Constitutional Appears: No Acute Distress - Extremities Exam Additional comments: LLE exam: Vascular: DP and PT non-palpable, mild foot edema noted, normal skin temp, CFT < 3sec to plantar and dorsal flaps. Derm: non-healing TMA site, serous drainage noted, fibrotic wound bed, probe to bone, eschar noted at the TMA site. Temperature of plantar and dorsal flaps warm to touch. Ortho: No pain with palpation to the TMA site Neuro: Diminished sensation. - Neurological Exam Neurological Exam: Alert, Awake, Oriented x3 Assessment and Plan - Assessment and Plan (Free Text) Assessment: 81 y/o male patient with non-healing left foot TMA site secondary to PVD Plan: Patient seen and evaluated at bedside Discussed with attending Dr. Gaytan TMA site cleansed with sterile saline, dressed with betadine, DSD, kerlix. Plan for bypass per Dr. Brown noted. Podiatry will continue to follow while patient remains in house
[2016-12-18 17:46] LABS: HEMATOCRIT 34.2 % (35.0-51.0); MEAN CELL VOLUME 75.3 fL (80.0-94.0); MEAN CORPUSCULAR HEMOGLOBIN 23.5 pg (27.0-31.0); MEAN CORPUSCULAR HGB CONC 31.2 g/dL (33.0-37.0); MEAN PLATELET VOLUME 8.2 fL (7.2-11.7); RED CELL DISTRIBUTION WIDTH 19.7 % (11.5-14.5); WHITE BLOOD COUNT 7.8 K/uL (4.8-10.8)
[2016-12-18 18:02] LABS: CHLORIDE 104 mmol/L (98-107); POTASSIUM 4.1 mmol/L (3.6-5.2); SODIUM 134 mmol/L (132-148)
[2016-12-18 18:05] LABS: BLOOD UREA NITROGEN 9 mg/dL (9-20); CARBON DIOXIDE 20 mmol/L (22-30); GFR AFRICAN-AMERICAN > 60
[2016-12-18 18:06] LABS: CALCIUM 8.6 mg/dl (8.6-10.4); GLUCOSE,RANDOM 123 mg/dL (75-110); MAGNESIUM 1.7 mg/dL (1.6-2.3); PHOSPHOROUS 3.1 mg/dL (2.5-4.5)
[2016-12-18] MEDS: (Lantus) Insulin Glargine, Recombinant SC SCH (21:49)
[2016-12-18] MEDS: Rosuvastatin Calcium 2.5 mg Tab PO SCH (22:00)
[2016-12-19] MEDS: Meropenem 500 MG in Sodium Chloride 0.9% 100 ML IVPB SCH ×5 (05:33→22:12)
[2016-12-19] MEDS: Levothyroxine 100 MCG TAB PO SCH (05:33)
--- NOTE | 2016-12-19 05:51 | CP.PCM.PN ---
<Vanessa Hutson - Last Filed: 12/19/16 18:43> Subjective - Date & Time of Evaluation Date of Evaluation: 12/19/16 Time of Evaluation: 07:00 - Subjective Subjective: PGY1 Medicine Note - Dr. Galindo's service: Patient was examined at bedside in the AM. Patient is oriented to person and place but not time. Patient states he does have left foot pain which is worse by palpation. Objective - Vital Signs/Intake and Output Vital Signs (last 24 hours): Temp Pulse Resp BP Pulse Ox 97.9 F 63 20 168/72 H 97 12/18/16 23:25 12/18/16 23:25 12/18/16 23:25 12/18/16 23:25 12/18/16 23:25 Intake and Output: 12/18/16 12/19/16 18:59 06:59 Intake Total 800 300 Output Total 450 400 Balance 350 -100 - Medications Medications: Current Medications Amlodipine Besylate (Norvasc) 10 mg PO DAILY [facility] Last Admin: 12/18/16 09:52 Dose: 10 mg Aspirin (Aspirin Chewable) 81 mg PO DAILY [facility] Last Admin: 12/18/16 09:52 Dose: 81 mg Ciprofloxacin (Cipro) 500 mg PO BID [facility] Last Admin: 12/18/16 18:03 Dose: 500 mg Clopidogrel Bisulfate (Plavix) 75 mg PO DAILY [facility] Last Admin: 12/18/16 09:52 Dose: 75 mg Docusate Sodium (Colace) 100 mg PO BID [facility] Last Admin: 12/18/16 18:04 Dose: 100 mg Famotidine (Pepcid) 20 mg PO DAILY [facility] Last Admin: 12/18/16 09:52 Dose: 20 mg Ferrous Sulfate (Feosol Liq) 300 mg PO BID [facility] Last Admin: 12/18/16 18:03 Dose: 300 mg Hydralazine HCl (Apresoline) 10 mg IVP Q6H PRN PRN Reason: Systolic Blood Pressure Last Admin: 12/16/16 14:30 Dose: 10 mg Meropenem 500 mg/ Sodium (Chloride) 100 mls @ 100 mls/hr IVPB Q8 [facility] Last Admin: 12/19/16 05:33 Dose: 100 mls/hr Dextrose/Sodium Chloride (Dextrose 5%/0.9% Ns 1000 Ml) 1,000 mls @ 75 mls/hr IV .[id number] [facility] Last Admin: 12/18/16 21:50 Dose: 75 mls/hr Insulin Aspart (Novolog) 0 unit SC ACHS [facility] PRN Reason: Protocol Last Admin: 12/18/16 21:56 Dose: Not Given Insulin Glargine (Lantus) 10 unit SC HS [facility] Last Admin: 12/18/16 21:49 Dose: 10 units Levothyroxine Sodium (Synthroid) 100 mcg PO DAILY@0630 [facility] Last Admin: 12/19/16 05:33 Dose: 100 mcg Losartan Potassium (Cozaar) 100 mg PO DAILY [facility] Last Admin: 12/18/16 09:52 Dose: 100 mg Metoprolol Tartrate (Lopressor) 12.5 mg PO 0800,1800 [facility] Last Admin: 12/18/16 18:04 Dose: 12.5 mg Rosuvastatin Calcium (Crestor) 2.5 mg PO [facility] Last Admin: 12/17/16 22:52 Dose: 2.5 mg Tramadol HCl (Ultram) 25 mg PO TID PRN PRN Reason: Pain, moderate (4-7) Last Admin: 12/16/16 10:17 Dose: 25 mg - Labs Labs: 12/18/16 17:35 12/18/16 17:35 PT 11.9 SECONDS (9.7-12.2) 12/16/16 13:51 INR 1.1 12/16/16 13:51 APTT 31 SECONDS (21-34) 12/16/16 13:51 - Constitutional Appears: No Acute Distress - Respiratory Exam Respiratory Exam: Clear to Ausculation Bilateral, NORMAL BREATHING PATTERN - Cardiovascular Exam Cardiovascular Exam: REGULAR RHYTHM - GI/Abdominal Exam GI & Abdominal Exam: Soft, Normal Bowel Sounds. absent: Tenderness - Extremities Exam Additional comments: Left foot tenderness. - Neurological Exam Neurological Exam: Alert, Awake. 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 Gaytan consulted. Podiatry plans to follow while patient is hospitalized. - Patient had TMA 10/17/[address] Gaytan. -Tramadol 25mg po tid prn pain Infectious Disease- Dr. Galindo- help appreciated. -Wound culture 12/12/16: Pseudomononas Aeruginosa, Enterococcus faecalis -Currently on Meropenem 500 mg IV Q8h MALU day 5 and Ciprofloxacin 500mg PO Q12H day [address] Brown consulted- help appreciated. -Patient is s/p aortofemoral angiogram via right groin with selective catherization of left femoral artery 12/17/16. -Patient for possible femoral bypass with Dr. Brown. Surgery planning. - Continue Plavix 75 mg PO daily - Continue Aspirin 81 mg PO daily Imaging: Abdominal Angiography: CTA ABDOMEN PELVIS:1. Moderate calcific plaque throughout the abdominal aorta without stenosis. 2. Severe calcific plaqueat the origin of the celiac artery with severe stenosis of the celiac artery. There is poststenotic dilatation. 3. There is moderate stenosis of the origin of the superior mesenteric artery. 4. Both renal arteries have moderate stenosis at the origin. LEFT LOWER EXTREMITY CT ANGIOGRAM:1. Unremarkable common femoral artery. 2. Patent distal SFA stent. 3. Popliteal artery has moderate diffuse stenosis. 4. Left runoff shows patent anterior tibial artery. Posterior tibial artery and peroneal artery believed to be occluded. RIGHT LOWER EXTREMITY CTA:1. Common femoral artery is unremarkable 2. Moderate calcific plaque throughout the SFA with there is a moderate stenosis in the mid SFA. 3. Moderate stenosis of popliteal artery 4. Unremarkable anterior tibial artery. Posterior tibial artery and peroneal artery believed to be occluded. NONVASCULAR FINDINGS: Prostate measures 6.7 centimeter AP x 5.4 centimeter transverse with mass effect on the urinary bladder. On last visit: Arterial doppler: 1.) Occluded left posterior tibial artery. No flow detected throughout the vessel. 2.) Continuous monophasic waveforms, beginning at left superficial femoral artery level. Calcific plaques notted throughout bilateral lower extremities. Slightly increased velocities due to vessel narrowing. No evidence of arterial occlusions of bilateral extremity arteries above the knee. (see full report) s/p angiogram - aortofemoral angiogram via right groin, selective angiogram left femoral artery. pathway atherectomy. 40% proximal sfa occlusion and 100% mid and distal sfa occlusion (see full report). Status: Chronic (2) PVD (peripheral vascular disease) Assessment & Plan: Vascular surgeon Dr. Brown consulted ---> help appreciated. -Patient is s/p aortofemoral angiogram via right groin with selective catherization of left femoral artery 12/17/16. -Patient for possible Endovascular Stent placement with Dr. Brown. Surgery planning. - Continue Plavix 75 mg PO daily - Continue Aspirin 81 mg PO daily Status: Chronic (3) Bacteremia Assessment & Plan: ID consult placed- Dr. Galindo ---> help appreciated. Blood Cx positive for Corynebacterium on 12/11/16 X2. Continue 500mg Ciprofloxacin PO bid Continue 500mg Meropenem IVPB q8 Status: Acute (4) Congestive heart failure (CHF) Assessment & Plan: Cardio consult placed- Dr. Dobson- help appreciated. Consult placed for cardiac clearance prior to vascular procedure. - Myocardial Perfusion Scan showed: Inferolateral Reversible Ischemia -Per Dr. Dobson- Recommended cardiac catheterization prior to vascular surgery. - Hold home lasix 20 mg PO daily secondary to acute on chronic kidney injury - Continue Lopressor 12.5 mg PO BID - Continue Losartan 100 mg PO mcg PO daily - Continue Amlodipine 10 mg PO daily -CXR: No evidence of new infiltrate or consolidation in the lungs. No significant pleural effusion or pneumothorax apparent. Status: Chronic (5) Coronary artery disease Assessment & Plan: Cardio consult placed- Dr. Dobson- help appreciated. Consult placed for cardiac clearance prior to vascular procedure. Aspirin 81 mg PO daily Plavux 75 mg PO daily Crestor 2.5 mg PO HS Status: Chronic (6) Hypothyroidism Assessment & Plan: -Continue Synthroid 100 mcg po AM -TSH 6.33, Free T4 0.96 Status: Chronic (7) Diabetes mellitus Assessment & Plan: -HgbA1c 7.2 -Accuchecks ACHS -RISS -Lantus 10units HS - confirmed by pharmacy Status: Chronic (8) Hypercholesteremia Assessment & Plan: -LDL 125, HDL 24, Cholesterol 187, Triglycerides 208 -Crestor 2.5mg po hs Status: Chronic (9) Acute on chronic renal insufficiency Assessment & Plan: -Improving -BUN/CR 10/0.9. 12/17/16 - f/u labs this AM -Continue D5% Normal saline 75cc/hr IV -Nephrology, Dr. Carmona consulted. Recommends IV fluids prior to angio and close renal function follow-up post procedure -Renal US: Bilateral renal cysts, some of which are mildly complex containing calcifications and septations (see full report) -Per Dr. Carmona, may need kidney CT in future to evaluate complex cysts Status: Acute (10) Hypertension Assessment & Plan: -Hydralazine 10mg ivp q6 prn SBP > 160 -Losartan 50mg po daily -Metprolol 12.5mg po bid Status: Chronic (11) Iron deficiency anemia Assessment & Plan: -Feosol 300mg po bid Status: Acute (12) Prophylactic measure Assessment & Plan: -Heparin 5000u sc q12 -Protonix 40mg po daily -SCD c/i -PT/OT -Heart healthy moderate consistent carb renal diet -Palliative Care Consult- Full Code. -Plan to discuss goals of care with son with TRAINING ASSISTANT, Eliana Escudero. Status: Acute <Annabel Galindo V - Last Filed: 12/20/16 09:04> Objective - Vital Signs/Intake and Output Vital Signs (last 24 hours): Temp Pulse Resp BP Pulse Ox 97.9 F 80 19 177/77 H 99 12/20/16 08:01 12/20/16 08:01 12/20/16 08:01 12/20/16 08:01 12/20/16 08:01 Intake and Output: 12/20/16 12/20/16 06:59 18:59 Intake Total 1125 Output Total 450 Balance 675 - Medications Medications: Current Medications Amlodipine Besylate (Norvasc) 10 mg PO DAILY [facility] Last Admin: 12/19/16 09:51 Dose: 10 mg Aspirin (Aspirin Chewable) 81 mg PO DAILY [facility] Last Admin: 12/18/16 09:52 Dose: 81 mg Ciprofloxacin (Cipro) 500 mg PO BID [facility] Last Admin: 12/19/16 20:34 Dose: 500 mg Clopidogrel Bisulfate (Plavix) 75 mg PO DAILY [facility] Last Admin: 12/18/16 09:52 Dose: 75 mg Docusate Sodium (Colace) 100 mg PO BID [facility] Last Admin: 12/19/16 20:35 Dose: 100 mg Famotidine (Pepcid) 20 mg PO DAILY [facility] Last Admin: 12/19/16 09:50 Dose: 20 mg Ferrous Sulfate (Feosol Liq) 300 mg PO BID [facility] Last Admin: 12/19/16 20:35 Dose: 300 mg Hydralazine HCl (Apresoline) 10 mg IVP Q6H PRN PRN Reason: Systolic Blood Pressure Last Admin: 12/16/16 14:30 Dose: 10 mg Meropenem 500 mg/ Sodium (Chloride) 100 mls @ 100 mls/hr IVPB Q8 [facility] Last Admin: 12/20/16 05:10 Dose: 100 mls/hr Dextrose/Sodium Chloride (Dextrose 5%/0.9% Ns 1000 Ml) 1,000 mls @ 75 mls/hr IV .[id number] [facility] Last Admin: 12/19/16 21:59 Dose: 75 mls/hr Insulin Aspart (Novolog) 0 unit SC [facility] PRN Reason: Protocol Last Admin: 12/20/16 07:22 Dose: Not Given Insulin Glargine (Lantus) 5 unit SC [facility] Last Admin: 12/19/16 22:05 Dose: 5 u Levothyroxine Sodium (Synthroid) 100 mcg PO DAILY@0630 [facility] Last Admin: 12/20/16 06:21 Dose: 100 mcg Losartan Potassium (Cozaar) 100 mg PO DAILY [facility] Last Admin: 12/19/16 09:51 Dose: 100 mg Metoprolol Tartrate (Lopressor) 12.5 mg PO 0800,1800 [facility] Last Admin: 12/20/16 08:10 Dose: 12.5 mg Rosuvastatin Calcium (Crestor) 2.5 mg PO HS [facility] Last Admin: 12/19/16 22:04 Dose: 2.5 mg Saccharomyces Boulardii (Florastor) 250 mg PO BID [facility] Last Admin: 12/19/16 20:34 Dose: 250 mg Tramadol HCl (Ultram) 25 mg PO TID PRN PRN Reason: Pain, moderate (4-7) Last Admin: 12/16/16 10:17 Dose: 25 mg - Labs Labs: 12/20/16 08:37 12/19/16 14:13 PT 11.9 SECONDS (9.7-12.2) 12/16/16 13:51 INR 1.1 12/16/16 13:51 APTT 31 SECONDS (21-34) 12/16/16 13:51 Attending/Attestation - Attestation I have personally seen and examined this patient.: Yes I have fully participated in the care of the patient.: Yes I have reviewed all pertinent clinical information, including history, physical exam and plan: Yes Notes (Text): This is a late computer entry for 12/19/16. Patient seen, examined, and case discussed with day-time resident. Patient seen in the afternoon; patient is awake, alert, and indicating pain over his foot. Discussed cardiology, patient will need cardiac cath given abnormal stress test. Possible transfer to [place] for cardiac cath. Arrangements to be made by Dr Dobson. Discussed with vascular surgery, will coordinate with interventional radiologist for arthrectomy. No plans for fem-bypass tomorrow per discussion with Dr. Brown. Discussed with infectious disease, likely the blood cultures are contaminant. Blood cultures were repeated during rounds. Patient refused blood work in the morning; permitted blood work in the afternoon. Patient is on IV fluids; BUN/Cr improving. Discussed with nephrology, Dr. Grimes given patient is in consideration for cath tomorrow; may use mucomyst if needed. Patient is placed NPO for anticipated cardiac cath. Plavix and Aspirin held in the morning. Patient is not on anticoagulation prior to cardiac cath.
[2016-12-19] MEDS ORDERED: Aminophylline 25 mg/ml Inj ONE (07:17)
[2016-12-19] MEDS: (Novolog) Insulin Aspart, Recombinant 100 u/ml 10 ml vial SC SCH ×4 (07:31→22:11)
--- NOTE | 2016-12-19 09:02 | CARD ---
APPROVED REPORT EKG Measurement Heart [id number] <Conclusion> Normal sinus rhythm Left ventricular hypertrophy with repolarization abnormality Inferior infarct, age undetermined Abnormal ECG
[2016-12-19] MEDS: Ferrous Sulfate 300 mg/5 mL Liq UD PO SCH ×2 (09:51→20:35)
--- NOTE | 2016-12-19 10:56 | CP.PCM.PN ---
Subjective - Date & Time of Evaluation Date of Evaluation: 12/19/16 Time of Evaluation: 06:45 - Subjective Subjective: SURGERY NOTE FOR DR. BOURNE 81M getting stress test this morning. Objective - Vital Signs/Intake and Output Vital Signs (last 24 hours): Temp Pulse Resp BP Pulse Ox 97.6 F 90 20 167/73 H 97 12/19/16 09:02 12/19/16 09:02 12/19/16 09:02 12/19/16 09:02 12/19/16 09:02 Intake and Output: 12/19/16 12/19/16 06:59 18:59 Intake Total 880 Output Total 1000 Balance -120 - Medications Medications: Current Medications Amlodipine Besylate (Norvasc) 10 mg PO DAILY [facility] Last Admin: 12/19/16 09:51 Dose: 10 mg Aspirin (Aspirin Chewable) 81 mg PO DAILY [facility] Last Admin: 12/18/16 09:52 Dose: 81 mg Ciprofloxacin (Cipro) 500 mg PO BID [facility] Last Admin: 12/19/16 09:50 Dose: 500 mg Clopidogrel Bisulfate (Plavix) 75 mg PO DAILY [facility] Last Admin: 12/18/16 09:52 Dose: 75 mg Docusate Sodium (Colace) 100 mg PO BID [facility] Last Admin: 12/19/16 09:50 Dose: 100 mg Famotidine (Pepcid) 20 mg PO DAILY [facility] Last Admin: 12/19/16 09:50 Dose: 20 mg Ferrous Sulfate (Feosol Liq) 300 mg PO BID [facility] Last Admin: 12/19/16 09:51 Dose: 300 mg Hydralazine HCl (Apresoline) 10 mg IVP Q6H PRN PRN Reason: Systolic Blood Pressure Last Admin: 12/16/16 14:30 Dose: 10 mg Meropenem 500 mg/ Sodium (Chloride) 100 mls @ 100 mls/hr IVPB Q8 [facility] Last Admin: 12/19/16 05:33 Dose: 100 mls/hr Dextrose/Sodium Chloride (Dextrose 5%/0.9% Ns 1000 Ml) 1,000 mls @ 75 mls/hr IV .[id number] [facility] Last Admin: 12/18/16 21:50 Dose: 75 mls/hr Insulin Aspart (Novolog) 0 unit SC ACHS [facility] PRN Reason: Protocol Last Admin: 12/19/16 07:31 Dose: Not Given Insulin Glargine (Lantus) 10 unit SC HS [facility] Last Admin: 12/18/16 21:49 Dose: 10 units Levothyroxine Sodium (Synthroid) 100 mcg PO DAILY@0630 [facility] Last Admin: 12/19/16 05:33 Dose: 100 mcg Losartan Potassium (Cozaar) 100 mg PO DAILY [facility] Last Admin: 12/19/16 09:51 Dose: 100 mg Metoprolol Tartrate (Lopressor) 12.5 mg PO 0800,1800 [facility] Last Admin: 12/19/16 07:36 Dose: Not Given Rosuvastatin Calcium (Crestor) 2.5 mg PO HS [facility] Last Admin: 12/17/16 22:52 Dose: 2.5 mg Tramadol HCl (Ultram) 25 mg PO TID PRN PRN Reason: Pain, moderate (4-7) Last Admin: 12/16/16 10:17 Dose: 25 mg - Labs Labs: 12/18/16 17:35 12/18/16 17:35 PT 11.9 SECONDS (9.7-12.2) 12/16/16 13:51 INR 1.1 12/16/16 13:51 APTT 31 SECONDS (21-34) 12/16/16 13:51 Assessment and Plan - Assessment and Plan (Free Text) Assessment: 81M with previous stents widely patent. Severe tibial disease-reconstituted DP less than 3 inches. distal PT reconstituted with disease into foot - consider IR attempt placement of stent - possible bypass tomorrow Further recs discuss with Dr. Stephanie Lester, PGY1
[2016-12-19 11:29] LABS: CHLORIDE 105 mmol/L (98-107)
[2016-12-19 11:30] LABS: POTASSIUM 3.9 mmol/L (3.6-5.2); SODIUM 135 mmol/L (132-148)
[2016-12-19 11:32] LABS: GFR AFRICAN-AMERICAN > 60
[2016-12-19 11:33] LABS: BLOOD UREA NITROGEN 8 mg/dL (9-20); CALCIUM 8.6 mg/dl (8.6-10.4); CARBON DIOXIDE 23 mmol/L (22-30); GLUCOSE,RANDOM 119 mg/dL (75-110)
[2016-12-19] MEDS: Dextrose 5%/0.9% NS 1,000 ML IV SCH ×2 (12:30→21:59)
--- NOTE | 2016-12-19 12:38 | CP.PCM.PN ---
Subjective - Date & Time of Evaluation Date of Evaluation: 12/19/16 Time of Evaluation: 12:37 - Subjective Subjective: 81 y/o male was seen and evaluated at bedside for followup of left foot TMA site nonhealing wound. Patient was resting comfortably in bed. States he has pain to LLE, rates as 6/10. Dressing clean, but falling off. Patient denies any symptoms of N/V/F/SOB/chills and chest pains. Objective - Vital Signs/Intake and Output Vital Signs (last 24 hours): Temp Pulse Resp BP Pulse Ox 97.6 F 90 20 167/73 H 97 12/19/16 09:02 12/19/16 09:02 12/19/16 09:02 12/19/16 09:02 12/19/16 09:02 Intake and Output: 12/19/16 12/19/16 06:59 18:59 Intake Total 880 Output Total 1000 Balance -120 - Medications Medications: Current Medications Amlodipine Besylate (Norvasc) 10 mg PO DAILY [facility] Last Admin: 12/19/16 09:51 Dose: 10 mg Aspirin (Aspirin Chewable) 81 mg PO DAILY [facility] Last Admin: 12/18/16 09:52 Dose: 81 mg Ciprofloxacin (Cipro) 500 mg PO BID [facility] Last Admin: 12/19/16 09:50 Dose: 500 mg Clopidogrel Bisulfate (Plavix) 75 mg PO DAILY [facility] Last Admin: 12/18/16 09:52 Dose: 75 mg Docusate Sodium (Colace) 100 mg PO BID [facility] Last Admin: 12/19/16 09:50 Dose: 100 mg Famotidine (Pepcid) 20 mg PO DAILY [facility] Last Admin: 12/19/16 09:50 Dose: 20 mg Ferrous Sulfate (Feosol Liq) 300 mg PO BID [facility] Last Admin: 12/19/16 09:51 Dose: 300 mg Hydralazine HCl (Apresoline) 10 mg IVP Q6H PRN PRN Reason: Systolic Blood Pressure Last Admin: 12/16/16 14:30 Dose: 10 mg Meropenem 500 mg/ Sodium (Chloride) 100 mls @ 100 mls/hr IVPB Q8 [facility] Last Admin: 12/19/16 05:33 Dose: 100 mls/hr Dextrose/Sodium Chloride (Dextrose 5%/0.9% Ns 1000 Ml) 1,000 mls @ 75 mls/hr IV .[id number] [facility] Last Admin: 12/18/16 21:50 Dose: 75 mls/hr Insulin Aspart (Novolog) 0 unit SC ACHS [facility] PRN Reason: Protocol Last Admin: 12/19/16 11:26 Dose: Not Given Insulin Glargine (Lantus) 5 unit SC HS [facility] Levothyroxine Sodium (Synthroid) 100 mcg PO DAILY@0630 [facility] Last Admin: 12/19/16 05:33 Dose: 100 mcg Losartan Potassium (Cozaar) 100 mg PO DAILY [facility] Last Admin: 12/19/16 09:51 Dose: 100 mg Metoprolol Tartrate (Lopressor) 12.5 mg PO 0800,1800 [facility] Last Admin: 12/19/16 07:36 Dose: Not Given Rosuvastatin Calcium (Crestor) 2.5 mg PO HS [facility] Last Admin: 12/17/16 22:52 Dose: 2.5 mg Saccharomyces Boulardii (Florastor) 250 mg PO BID [facility] Tramadol HCl (Ultram) 25 mg PO TID PRN PRN Reason: Pain, moderate (4-7) Last Admin: 12/16/16 10:17 Dose: 25 mg - Labs Labs: 12/18/16 17:35 12/19/16 11:07 PT 11.9 SECONDS (9.7-12.2) 12/16/16 13:51 INR 1.1 12/16/16 13:51 APTT 31 SECONDS (21-34) 12/16/16 13:51 - Constitutional Appears: No Acute Distress - Extremities Exam Additional comments: LLE exam: Vascular: DP and PT non-palpable, mild foot edema noted, normal skin temp, CFT < 3sec to plantar and dorsal flaps. Derm: non-healing TMA site, serous drainage noted, fibrotic wound bed, probe to bone, eschar noted at the TMA site. Temperature of plantar and dorsal flaps warm to touch. Ortho: No pain with palpation to the TMA site Neuro: Diminished sensation. - Neurological Exam Neurological Exam: Alert, Awake Assessment and Plan - Assessment and Plan (Free Text) Assessment: 81 y/o male patient with non-healing left foot TMA site secondary to PVD Plan: Patient seen and evaluated at bedside Discussed with attending Dr. Gaytan TMA site cleansed with sterile saline, dressed with betadine, DSD, kerlix. Plan for bypass per Dr. Brown noted. Podiatry will continue to follow while patient remains in house
[2016-12-19 14:36] LABS: BASO # 0.1 K/uL (0.0-0.2); BASO % 1.1 % (0.0-2.0); EOS # 0.4 K/uL (0.0-0.7); EOS % 6.1 % (0.0-4.0); HEMATOCRIT 32.6 % (35.0-51.0); LYMPH % 31.1 % (20.0-40.0); MEAN CELL VOLUME 74.4 fL (80.0-94.0); MEAN CORPUSCULAR HEMOGLOBIN 24.2 pg (27.0-31.0); MEAN CORPUSCULAR HGB CONC 32.5 g/dL (33.0-37.0); MEAN PLATELET VOLUME 8.2 fL (7.2-11.7); MONO # 0.9 K/uL (0.0-0.8); MONO % 13.4 % (0.0-10.0); RED CELL DISTRIBUTION WIDTH 19.5 % (11.5-14.5); WHITE BLOOD COUNT 6.5 K/uL (4.8-10.8)
--- NOTE | 2016-12-19 15:05 | CP.PCM.PN ---
Subjective - Date & Time of Evaluation Date of Evaluation: 12/19/16 Time of Evaluation: 13:20 - Subjective Subjective: no acute events unable to obtain ROS due to mental status Objective - Vital Signs/Intake and Output Vital Signs (last 24 hours): Temp Pulse Resp BP Pulse Ox 97.6 F 90 20 167/73 H 97 12/19/16 09:02 12/19/16 09:02 12/19/16 09:02 12/19/16 09:02 12/19/16 09:02 Intake and Output: 12/19/16 12/19/16 06:59 18:59 Intake Total 880 Output Total 1000 Balance -120 - Medications Medications: Current Medications Amlodipine Besylate (Norvasc) 10 mg PO DAILY [facility] Last Admin: 12/19/16 09:51 Dose: 10 mg Aspirin (Aspirin Chewable) 81 mg PO DAILY [facility] Last Admin: 12/18/16 09:52 Dose: 81 mg Ciprofloxacin (Cipro) 500 mg PO BID [facility] Last Admin: 12/19/16 09:50 Dose: 500 mg Clopidogrel Bisulfate (Plavix) 75 mg PO DAILY [facility] Last Admin: 12/18/16 09:52 Dose: 75 mg Docusate Sodium (Colace) 100 mg PO BID [facility] Last Admin: 12/19/16 09:50 Dose: 100 mg Famotidine (Pepcid) 20 mg PO DAILY [facility] Last Admin: 12/19/16 09:50 Dose: 20 mg Ferrous Sulfate (Feosol Liq) 300 mg PO BID [facility] Last Admin: 12/19/16 09:51 Dose: 300 mg Hydralazine HCl (Apresoline) 10 mg IVP Q6H PRN PRN Reason: Systolic Blood Pressure Last Admin: 12/16/16 14:30 Dose: 10 mg Meropenem 500 mg/ Sodium (Chloride) 100 mls @ 100 mls/hr IVPB Q8 [facility] Last Admin: 12/19/16 14:36 Dose: Not Given Dextrose/Sodium Chloride (Dextrose 5%/0.9% Ns 1000 Ml) 1,000 mls @ 75 mls/hr IV .[id number] [facility] Last Admin: 12/18/16 21:50 Dose: 75 mls/hr Insulin Aspart (Novolog) 0 unit SC ACHS [facility] PRN Reason: Protocol Last Admin: 12/19/16 11:26 Dose: Not Given Insulin Glargine (Lantus) 5 unit SC [facility] Levothyroxine Sodium (Synthroid) 100 mcg PO DAILY@0630 [facility] Last Admin: 12/19/16 05:33 Dose: 100 mcg Losartan Potassium (Cozaar) 100 mg PO DAILY [facility] Last Admin: 12/19/16 09:51 Dose: 100 mg Metoprolol Tartrate (Lopressor) 12.5 mg PO 0800,1800 [facility] Last Admin: 12/19/16 07:36 Dose: Not Given Rosuvastatin Calcium (Crestor) 2.5 mg PO HS [facility] Last Admin: 12/17/16 22:52 Dose: 2.5 mg Saccharomyces Boulardii (Florastor) 250 mg PO BID [facility] Tramadol HCl (Ultram) 25 mg PO TID PRN PRN Reason: Pain, moderate (4-7) Last Admin: 12/16/16 10:17 Dose: 25 mg - Labs Labs: 12/19/16 14:13 12/19/16 11:07 PT 11.9 SECONDS (9.7-12.2) 12/16/16 13:51 INR 1.1 12/16/16 13:51 APTT 31 SECONDS (21-34) 12/16/16 13:51 - Constitutional Appears: Confused, Chronically Ill - Eye Exam Eye Exam: EOMI, Normal appearance - ENT Exam ENT Exam: Mucous Membranes Moist - Neck Exam Neck Exam: Full ROM - Respiratory Exam Respiratory Exam: Clear to Ausculation Bilateral, NORMAL BREATHING PATTERN - Cardiovascular Exam Cardiovascular Exam: REGULAR RHYTHM. absent: Rubs - GI/Abdominal Exam GI & Abdominal Exam: absent: Distended, Firm, Tenderness - Extremities Exam Additional comments: foot bandaged - Neurological Exam Neurological Exam: absent: Alert, Oriented x3 Assessment and Plan - Assessment and Plan (Free Text) Assessment: nonhealing foot ulcer for bypass stable ckd will follow
[2016-12-19 15:11] LABS: CHLORIDE 107 mmol/L (98-107); POTASSIUM 3.8 mmol/L (3.6-5.2); SODIUM 137 mmol/L (132-148)
[2016-12-19 15:13] LABS: ALB/GLOB RATIO 0.8 (1.0-2.1); ALKALINE PHOSPHATASE 108 U/L (38-126); ALT/SGPT 22 U/L (21-72); AST/SGOT 22 U/L (17-59); BILIRUBIN,TOTAL 0.6 mg/dL (0.2-1.3); BLOOD UREA NITROGEN 8 mg/dL (9-20); CARBON DIOXIDE 21 mmol/L (22-30); GFR AFRICAN-AMERICAN > 60; GLUCOSE,RANDOM 128 mg/dL (75-110); TOTAL PROTEIN 6.7 g/dL (6.3-8.3)
[2016-12-19 15:14] LABS: CALCIUM 8.7 mg/dl (8.6-10.4); MAGNESIUM 1.8 mg/dL (1.6-2.3); PHOSPHOROUS 2.8 mg/dL (2.5-4.5)
--- NOTE | 2016-12-19 15:17 | CP.PCM.PN ---
Subjective - Date & Time of Evaluation Date of Evaluation: 12/19/16 Time of Evaluation: 09:00 - Subjective Subjective: nonhealing tma wound c/s + for or dr graham cont rx Objective - Vital Signs/Intake and Output Vital Signs (last 24 hours): Temp Pulse Resp BP Pulse Ox 97.6 F 90 20 167/73 H 97 12/19/16 09:02 12/19/16 09:02 12/19/16 09:02 12/19/16 09:02 12/19/16 09:02 Intake and Output: 12/19/16 12/19/16 06:59 18:59 Intake Total 880 Output Total 1000 Balance -120 - Medications Medications: Current Medications Amlodipine Besylate (Norvasc) 10 mg PO DAILY [facility] Last Admin: 12/19/16 09:51 Dose: 10 mg Aspirin (Aspirin Chewable) 81 mg PO DAILY [facility] Last Admin: 12/18/16 09:52 Dose: 81 mg Ciprofloxacin (Cipro) 500 mg PO BID [facility] Last Admin: 12/19/16 09:50 Dose: 500 mg Clopidogrel Bisulfate (Plavix) 75 mg PO DAILY [facility] Last Admin: 12/18/16 09:52 Dose: 75 mg Docusate Sodium (Colace) 100 mg PO BID [facility] Last Admin: 12/19/16 09:50 Dose: 100 mg Famotidine (Pepcid) 20 mg PO DAILY [facility] Last Admin: 12/19/16 09:50 Dose: 20 mg Ferrous Sulfate (Feosol Liq) 300 mg PO BID [facility] Last Admin: 12/19/16 09:51 Dose: 300 mg Hydralazine HCl (Apresoline) 10 mg IVP Q6H PRN PRN Reason: Systolic Blood Pressure Last Admin: 12/16/16 14:30 Dose: 10 mg Meropenem 500 mg/ Sodium (Chloride) 100 mls @ 100 mls/hr IVPB Q8 [facility] Last Admin: 12/19/16 15:14 Dose: 100 mls/hr Dextrose/Sodium Chloride (Dextrose 5%/0.9% Ns 1000 Ml) 1,000 mls @ 75 mls/hr IV .[id number] [facility] Last Admin: 12/18/16 21:50 Dose: 75 mls/hr Insulin Aspart (Novolog) 0 unit SC ACHS [facility] PRN Reason: Protocol Last Admin: 12/19/16 11:26 Dose: Not Given Insulin Glargine (Lantus) [address] [facility] Levothyroxine Sodium (Synthroid) 100 mcg PO DAILY@0630 [facility] Last Admin: 12/19/16 05:33 Dose: 100 mcg Losartan Potassium (Cozaar) 100 mg PO DAILY [facility] Last Admin: 12/19/16 09:51 Dose: 100 mg Metoprolol Tartrate (Lopressor) 12.5 mg PO 0800,1800 [facility] Last Admin: 12/19/16 07:36 Dose: Not Given Rosuvastatin Calcium (Crestor) 2.5 mg PO HS [facility] Last Admin: 12/17/16 22:52 Dose: 2.5 mg Saccharomyces Boulardii (Florastor) 250 mg PO BID [facility] Tramadol HCl (Ultram) 25 mg PO TID PRN PRN Reason: Pain, moderate (4-7) Last Admin: 12/16/16 10:17 Dose: 25 mg - Labs Labs: 12/19/16 14:13 12/19/16 11:07 PT 11.9 SECONDS (9.7-12.2) 12/16/16 13:51 INR 1.1 12/16/16 13:51 APTT 31 SECONDS (21-34) 12/16/16 13:51 - Constitutional Appears: Non-toxic, Chronically Ill - Head Exam Head Exam: NORMOCEPHALIC - Eye Exam Eye Exam: PERRL. absent: Scleral icterus - ENT Exam ENT Exam: Mucous Membranes Dry, Normal External Ear Exam - Neck Exam Neck Exam: absent: Thyromegaly - Respiratory Exam Respiratory Exam: Decreased Breath Sounds, Rhonchi - Cardiovascular Exam Cardiovascular Exam: REGULAR RHYTHM, +S1, +S2 - GI/Abdominal Exam GI & Abdominal Exam: Distended, Soft. 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
--- NOTE | 2016-12-19 16:32 | VASCLAB ---
PROCEDURE: Lower Extremity Vein mapping. HISTORY: pre op left leg bypass PRIORS: None. TECHNIQUE: Bilateral common femoral, femoral, popliteal and posterior tibial, peroneal and great saphenous veins were evaluated. Flow was assessed with color Doppler, compressibility, assessment of phasic flow and augmentation response. Report prepared by invasive cardiovascular technologist. FINDINGS: RIGHT: 1. Common Femoral Vein: Compressibility - Fully compressible: Thrombus - None : Flow - Phasic: Augmentation -Normal: Reflux - None. 2. Femoral Vein:Compressibility - Fully compressible: Thrombus - None 3. Popliteal Vein: Compressibility - Fully compressible: Thrombus - None 4. Posterior Tibial Vein: Compressibility - Fully compressible: Thrombus - None 5. Peroneal Vein:Compressibility - Fully compressible: Thrombus - None 6. Greater Saphenous Vein: Compressibility - Fully compressible: Thrombus - None 6.1. Thigh - Proximal Diameter: 0.49cm. Mid Diameter: 0.17cm. Distal Diameter: 0.15cm. Knee - Diameter 0.16cm 7. 7.1. Calf - Proximal Diameter: 0.19cm. Mid Diameter:0.20cm. Distal Diameter: 0.17cm 7.2. Ankle - Diameter: 0.18cm 8. [place] Saphenous Vein: Compressibility - Fully compressible: thrombus - None 8.1. Knee - Diameter 0.31cm 8.2. Calf - Proximal Diameter: 0.24cm. Mid Diameter: 0.23cm. Distal Diameter: 0.23cm. 8.3. Ankle - Diameter: 0.23cm LEFT: 1. Common Femoral Vein: Compressibility - Fully compressible: Thrombus - None : Flow - Phasic: Augmentation -Normal: Reflux - None. 2. Femoral Vein:Compressibility - Fully compressible: Thrombus - None 3. Popliteal Vein: Compressibility - Fully compressible: Thrombus - None 4. Posterior Tibial Vein: Compressibility - Fully compressible: Thrombus - None 5. Peroneal Vein:Compressibility - Fully compressible: Thrombus - None 6. Greater Saphenous Vein: Compressibility - Fully compressible: Thrombus - None 6.1. Thigh - Proximal Diameter: 0.37cm. Mid Diameter: 0.20cm. Distal Diameter: 0.22cm. Knee - Diameter 0.22cm 7. 7.1. Calf - Proximal Diameter: 0.28cm. Mid Diameter:0.37cm. Distal Diameter: 0.31cm 7.2. Ankle - Diameter: 0.30cm 8. [place] Saphenous Vein: Compressibility - Fully compressible: thrombus - None 8.1. Knee - Diameter 0.39cm 8.2. Calf - Proximal Diameter: 0.25cm. Mid Diameter: 0.27cm. Distal Diameter: 0.26cm. 8.3. Ankle - Diameter: 0.20cm OTHER FINDINGS: Right: None. Left: None. IMPRESSION: Right: Diameter measurements of the right cephalic vein is measured between 0.15 cm and 0.49 cm and basilic vein is measured between 0.23 cm and 0.30 cm. Left: Diameter measurements of the left cephalic vein is measured between 0.20 cm and 0.37 cm and basilic vein is measured between 0.20 cm and 0.39 cm.
--- NOTE | 2016-12-19 18:13 | CP.PCM.PN ---
Subjective - Date & Time of Evaluation Date of Evaluation: 12/19/16 Time of Evaluation: 18:00 - Subjective Subjective: stress test reviewed. inferolateral reversible ischemia. Patietn s at high risk for vascular surgery currently. recommend cardiac catheterization prior to vascular surgery. Objective - Vital Signs/Intake and Output Vital Signs (last 24 hours): Temp Pulse Resp BP Pulse Ox 98 F 73 20 171/71 H 100 12/19/16 15:35 12/19/16 15:35 12/19/16 15:35 12/19/16 15:35 12/19/16 15:35 Intake and Output: 12/19/16 12/19/16 06:59 18:59 Intake Total 880 850 Output Total 1000 700 Balance -120 150 - Medications Medications: Current Medications Amlodipine Besylate (Norvasc) 10 mg PO DAILY [facility] Last Admin: 12/19/16 09:51 Dose: 10 mg Aspirin (Aspirin Chewable) 81 mg PO DAILY [facility] Last Admin: 12/18/16 09:52 Dose: 81 mg Ciprofloxacin (Cipro) 500 mg PO BID [facility] Last Admin: 12/19/16 09:50 Dose: 500 mg Clopidogrel Bisulfate (Plavix) 75 mg PO DAILY [facility] Last Admin: 12/18/16 09:52 Dose: 75 mg Docusate Sodium (Colace) 100 mg PO BID [facility] Last Admin: 12/19/16 09:50 Dose: 100 mg Famotidine (Pepcid) 20 mg PO DAILY [facility] Last Admin: 12/19/16 09:50 Dose: 20 mg Ferrous Sulfate (Feosol Liq) 300 mg PO BID [facility] Last Admin: 12/19/16 09:51 Dose: 300 mg Hydralazine HCl (Apresoline) 10 mg IVP Q6H PRN PRN Reason: Systolic Blood Pressure Last Admin: 12/16/16 14:30 Dose: 10 mg Meropenem 500 mg/ Sodium (Chloride) 100 mls @ 100 mls/hr IVPB Q8 [facility] Last Admin: 12/19/16 15:14 Dose: 100 mls/hr Dextrose/Sodium Chloride (Dextrose 5%/0.9% Ns 1000 Ml) 1,000 mls @ 75 mls/hr IV .[id number] [facility] Last Admin: 12/19/16 12:30 Dose: Not Given Insulin Aspart (Novolog) 0 unit SC ACHS [facility] PRN Reason: Protocol Last Admin: 12/19/16 11:26 Dose: Not Given Insulin Glargine (Lantus) 5 unit SC HS [facility] Levothyroxine Sodium (Synthroid) 100 mcg PO DAILY@0630 [facility] Last Admin: 12/19/16 05:33 Dose: 100 mcg Losartan Potassium (Cozaar) 100 mg PO DAILY [facility] Last Admin: 12/19/16 09:51 Dose: 100 mg Metoprolol Tartrate (Lopressor) 12.5 mg PO 0800,1800 [facility] Last Admin: 12/19/16 07:36 Dose: Not Given Rosuvastatin Calcium (Crestor) 2.5 mg PO HS [facility] Last Admin: 12/17/16 22:52 Dose: 2.5 mg Saccharomyces Boulardii (Florastor) 250 mg PO BID [facility] Tramadol HCl (Ultram) 25 mg PO TID PRN PRN Reason: Pain, moderate (4-7) Last Admin: 12/16/16 10:17 Dose: 25 mg - Labs Labs: 12/19/16 14:13 12/19/16 14:13 PT 11.9 SECONDS (9.7-12.2) 12/16/16 13:51 INR 1.1 12/16/16 13:51 APTT 31 SECONDS (21-34) 12/16/16 13:51
[2016-12-19] MEDS: Saccharomyces Boulardi 250 mg Cap PO SCH (20:34)
[2016-12-19] MEDS: Rosuvastatin Calcium 2.5 mg Tab PO SCH (22:04)
[2016-12-19] MEDS: (Lantus) Insulin Glargine, Recombinant SC SCH (22:05)
[2016-12-20] MEDS: Meropenem 500 MG in Sodium Chloride 0.9% 100 ML IVPB SCH ×2 (05:10→14:22)
[2016-12-20] MEDS: Levothyroxine 100 MCG TAB PO SCH (06:21)
[2016-12-20] MEDS: (Novolog) Insulin Aspart, Recombinant 100 u/ml 10 ml vial SC SCH ×4 (07:22→22:00)
--- NOTE | 2016-12-20 08:07 | CARD ---
APPROVED REPORT Protocol: LEXISCAN Test Type: LEXISCAN STRESS Test Indications: CP Target HR: 138 bpm Resting ECG: normal Resting Heart Rate: 75 bpm Resting Blood Pressure: 128/80mmHg submaximum (85%): 117 bpm TEST SUMMARY PREINFSNHYPERV.23:[id number]/80.0. INFUSIONDOSE 100:300.00.01.075/.0. [id number]/80.0. PROCEDURE Pharmacologic stress testing was performed using 0.4mg per 5ml of regadenoson given intravenously over 7-10 seconds. Reversal agent aminophyline 125 mg, given intravenously for Headache. POST EXERCISE Reason for Termination: Protocol Completed Target HR: No Max HR: 75 bpm 73% of Maximum Predicted HR: 138 bpm Exercise duration: 00:30 min:sec, 0 Stage Exercise capacity: 1.0METs Max Blood Pressure: 128/80mmHg Blood Pressure response to exercise: normal resting BP - appropriate response Heart Rate response to exercise: appropriate Chest Pain: No, none Angina index: 0 Arrhythmia: No, none ST Change: No, none Deviation: 0 mm INTERPRETATION Stress EKG Conclusion: AWAIT NUCLEAR IMAGES EXAM: Myocardial Perfusion STRESS/REST Imaging Protocol The imaging protocol used to acquire images was Stress Tc-99m/rest Tc-99m 1 day Rest Spect myocardial perfusion imaging was performed in supine position 45 minutes following the injection of 32.1 mCi of Tc-99 Myoview. Gated Stress Spect was performed 45 minutes after intravenous 12.5 mCi Tc-99 Myoview injection. The images were gated to evaluate regional wall motion and calculate ventricular ejection fraction.Images were reconstructed using backfilter projection method in short horizontal and verticle long axis. Spect slices were generated. RESTING DATA EDV71.63luFE0.10L/min ESV28.00mlMyocardial Pxvi238.00g Av. Heart Rate71.00bpm EF61.00% STRESS DATA EDV95.05ovPC9.90L/min ESV46.00mlMyocardial Jkzu907.00g EF52.00% Regional WT score at stress:3.00 Regional WM score at stress:2.00 Summed WT score at stress:20.00 Av. Heart Rate79.00bpmSummed WM score at stress:13.00 LV Perf. Quant 17 Seg. SSS8.00 17 Seg. SRS3.00 17 Seg. SDS6.00 Stress Defect Extent (% LAD)1.90Rest Defect Extent (% LAD)0.00Rev. Defect Extent (% LAD)1.90 Stress Defect Extent (% LCX)61.30Rest Defect Extent (% LCX)43.80Rev. Defect Extent (% LCX)26.30 Stress Defect Extent (% RCA)10.00Rest Defect Extent (% RCA)0.00Rev. Defect Extent (% RCA)10.00 Stress Defect Extent (% MARLEN)16.50Rest Defect Extent (% MARLEN)7.60Rev. Defect Extent (% MARLEN)10.40 Other Information Quality:Excellent IMPRESSION Abnormal Myocardial Perfusion exercise stress study Global LV Function: Normal Stress Test Summary: Nondiagnostic LV Perfusion Summary: Abnormal Left Ventricle LV Size/Shape: The left ventricle is normal size. LV Thickness: There is normal left ventricular wall thickness. LV Function:Left ventricle systolic function is normal. The Ejection Fraction is 55-60%. Regional Wall Motion:No regional wall motion abnormalities noted. Metabolism/Perfusion Reversible/Irreversible: There is a large reversible perfusion/metabolism defect in the Basal inferolateral wall. There is a large reversible perfusion/metabolism defect in the Mid-inferolateral wall. There is a large reversible perfusion/metabolism defect in the Apical inferior wall. Conclusion 1. Pharmacologically induced ischemia of the inferolateral and inferoapical segments of the left ventricle. 2. Normal left ventricular function. 3. Cardiac Catheterization recommendation.
[2016-12-20 08:45] LABS: BASO # 0.1 K/uL (0.0-0.2); BASO % 0.9 % (0.0-2.0); EOS # 0.5 K/uL (0.0-0.7); EOS % 6.9 % (0.0-4.0); HEMATOCRIT 34.5 % (35.0-51.0); LYMPH # 2.5 K/uL (1.0-4.3); LYMPH % 30.7 % (20.0-40.0); MEAN CELL VOLUME 75.4 fL (80.0-94.0); MEAN CORPUSCULAR HEMOGLOBIN 23.9 pg (27.0-31.0); MEAN CORPUSCULAR HGB CONC 31.7 g/dL (33.0-37.0); MEAN PLATELET VOLUME 7.9 fL (7.2-11.7); MONO # 1.2 K/uL (0.0-0.8); MONO % 14.6 % (0.0-10.0); NRBC % 0.1 % (0.0-2.0); RED CELL DISTRIBUTION WIDTH 19.8 % (11.5-14.5)
[2016-12-20 08:59] LABS: CHLORIDE 104 mmol/L (98-107)
[2016-12-20 09:00] LABS: POTASSIUM 4.1 mmol/L (3.6-5.2); SODIUM 135 mmol/L (132-148)
[2016-12-20 09:01] LABS: GFR AFRICAN-AMERICAN > 60
[2016-12-20 09:02] LABS: ALB/GLOB RATIO 0.7 (1.0-2.1); ALKALINE PHOSPHATASE 124 U/L (38-126); ALT/SGPT 25 U/L (21-72); AST/SGOT 23 U/L (17-59); BILIRUBIN,TOTAL 0.5 mg/dL (0.2-1.3); BLOOD UREA NITROGEN 8 mg/dL (9-20); CARBON DIOXIDE 23 mmol/L (22-30); GLUCOSE,RANDOM 103 mg/dL (75-110); PHOSPHOROUS 3.2 mg/dL (2.5-4.5)
[2016-12-20 09:03] LABS: CALCIUM 8.7 mg/dl (8.6-10.4); MAGNESIUM 1.7 mg/dL (1.6-2.3)
[2016-12-20] MEDS: Ferrous Sulfate 300 mg/5 mL Liq UD PO SCH ×2 (09:14→18:00)
[2016-12-20] MEDS: Saccharomyces Boulardi 250 mg Cap PO SCH ×2 (09:14→18:00)
--- NOTE | 2016-12-20 10:00 | CP.PCM.PN ---
<Vanessa Hutson - Last Filed: 12/20/16 16:26> Subjective - Date & Time of Evaluation Date of Evaluation: 12/20/16 Time of Evaluation: 07:30 - Subjective Subjective: PGY1 Medicine Note - Dr. Galindo's service: Patient was examined at bedside in the AM. Patient is oriented to person and place but not time. Patient states he does have left foot pain which is worse by palpation. Objective - Vital Signs/Intake and Output Vital Signs (last 24 hours): Temp Pulse Resp BP Pulse Ox 97.9 F 79 19 148/64 99 12/20/16 08:01 12/20/16 09:12 12/20/16 08:01 12/20/16 09:12 12/20/16 08:01 Intake and Output: 12/20/16 12/20/16 06:59 18:59 Intake Total 1125 Output Total 450 Balance 675 - Medications Medications: Current Medications Amlodipine Besylate (Norvasc) 10 mg PO DAILY [facility] Last Admin: 12/20/16 09:14 Dose: 10 mg Aspirin (Aspirin Chewable) 81 mg PO DAILY [facility] Last Admin: 12/18/16 09:52 Dose: 81 mg Ciprofloxacin (Cipro) 500 mg PO BID [facility] Last Admin: 12/20/16 09:14 Dose: Not Given Clopidogrel Bisulfate (Plavix) 75 mg PO DAILY [facility] Last Admin: 12/18/16 09:52 Dose: 75 mg Docusate Sodium (Colace) 100 mg PO BID [facility] Last Admin: 12/20/16 09:14 Dose: Not Given Famotidine (Pepcid) 20 mg PO DAILY [facility] Last Admin: 12/19/16 09:50 Dose: 20 mg Ferrous Sulfate (Feosol Liq) 300 mg PO BID [facility] Last Admin: 12/20/16 09:14 Dose: Not Given Hydralazine HCl (Apresoline) 10 mg IVP Q6H PRN PRN Reason: Systolic Blood Pressure Last Admin: 12/16/16 14:30 Dose: 10 mg Meropenem 500 mg/ Sodium (Chloride) 100 mls @ 100 mls/hr IVPB Q8 [facility] Last Admin: 12/20/16 05:10 Dose: 100 mls/hr Dextrose/Sodium Chloride (Dextrose 5%/0.9% Ns 1000 Ml) 1,000 mls @ 75 mls/hr IV .[id number] [facility] Last Admin: 12/19/16 21:59 Dose: 75 mls/hr Insulin Aspart (Novolog) 0 unit SC ACHS [facility] PRN Reason: Protocol Last Admin: 12/20/16 07:22 Dose: Not Given Insulin Glargine (Lantus) 5 unit SC HS [facility] Last Admin: 12/19/16 22:05 Dose: 5 u Levothyroxine Sodium (Synthroid) 100 mcg PO DAILY@0630 [facility] Last Admin: 12/20/16 06:21 Dose: 100 mcg Losartan Potassium (Cozaar) 100 mg PO DAILY [facility] Last Admin: 12/20/16 09:14 Dose: 100 mg Metoprolol Tartrate (Lopressor) 12.5 mg PO 0800,1800 [facility] Last Admin: 12/20/16 08:10 Dose: 12.5 mg Rosuvastatin Calcium (Crestor) 2.5 mg PO HS [facility] Last Admin: 12/19/16 22:04 Dose: 2.5 mg Saccharomyces Boulardii (Florastor) 250 mg PO BID [facility] Last Admin: 12/20/16 09:14 Dose: Not Given Tramadol HCl (Ultram) 25 mg PO TID PRN PRN Reason: Pain, moderate (4-7) Last Admin: 12/16/16 10:17 Dose: 25 mg - Labs Labs: 12/20/16 08:37 12/20/16 08:37 PT 11.9 SECONDS (9.7-12.2) 12/16/16 13:51 INR 1.1 12/16/16 13:51 APTT 31 SECONDS (21-34) 12/16/16 13:51 - Constitutional Appears: No Acute Distress - Respiratory Exam Respiratory Exam: NORMAL BREATHING PATTERN - Cardiovascular Exam Cardiovascular Exam: REGULAR RHYTHM - GI/Abdominal Exam GI & Abdominal Exam: Soft, Normal Bowel Sounds. absent: Tenderness - Extremities Exam Additional comments: Left foot tenderness. - Neurological Exam Neurological Exam: Alert, Awake. absent: Oriented x3 Additional comments: Oriented to person and place. 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 Gaytan consulted. Podiatry plans to follow while patient is hospitalized. - Patient had TMA 10/17/[address] Gaytan. -Tramadol 25mg po tid prn pain Infectious Disease- Dr. Galindo- help appreciated. -Wound culture 12/12/16: Pseudomononas Aeruginosa, Enterococcus faecalis -Currently on Meropenem 500 mg IV Q8h MALU day 5 and Ciprofloxacin 500mg PO Q12H day [address] Brown consulted- help appreciated. -Patient is s/p aortofemoral angiogram via right groin with selective catherization of left femoral artery 12/17/16. -Patient for possible femoral bypass with Dr. Brown. Surgery planning. - Continue Plavix 75 mg PO daily - Continue Aspirin 81 mg PO daily Imaging: Abdominal Angiography: CTA ABDOMEN PELVIS:1. Moderate calcific plaque throughout the abdominal aorta without stenosis. 2. Severe calcific plaqueat the origin of the celiac artery with severe stenosis of the celiac artery. There is poststenotic dilatation. 3. There is moderate stenosis of the origin of the superior mesenteric artery. 4. Both renal arteries have moderate stenosis at the origin. LEFT LOWER EXTREMITY CT ANGIOGRAM:1. Unremarkable common femoral artery. 2. Patent distal SFA stent. 3. Popliteal artery has moderate diffuse stenosis. 4. Left runoff shows patent anterior tibial artery. Posterior tibial artery and peroneal artery believed to be occluded. RIGHT LOWER EXTREMITY CTA:1. Common femoral artery is unremarkable 2. Moderate calcific plaque throughout the SFA with there is a moderate stenosis in the mid SFA. 3. Moderate stenosis of popliteal artery 4. Unremarkable anterior tibial artery. Posterior tibial artery and peroneal artery believed to be occluded. NONVASCULAR FINDINGS: Prostate measures 6.7 centimeter AP x 5.4 centimeter transverse with mass effect on the urinary bladder. On last visit: Arterial doppler: 1.) Occluded left posterior tibial artery. No flow detected throughout the vessel. 2.) Continuous monophasic waveforms, beginning at left superficial femoral artery level. Calcific plaques notted throughout bilateral lower extremities. Slightly increased velocities due to vessel narrowing. No evidence of arterial occlusions of bilateral extremity arteries above the knee. (see full report) s/p angiogram - aortofemoral angiogram via right groin, selective angiogram left femoral artery. pathway atherectomy. 40% proximal sfa occlusion and 100% mid and distal sfa occlusion (see full report). Status: Chronic (2) PVD (peripheral vascular disease) Assessment & Plan: Vascular surgeon Dr. Brown consulted ---> help appreciated. -Patient is s/p aortofemoral angiogram via right groin with selective catherization of left femoral artery 12/17/16. -Patient for possible Endovascular Stent placement with Dr. Brown. Surgery planning. - Continue Plavix 75 mg PO daily - Continue Aspirin 81 mg PO daily Status: Chronic (3) Bacteremia Assessment & Plan: ID consult placed- Dr. Galindo ---> help appreciated. Blood Cx positive for Corynebacterium on 12/11/16 X2. Continue 500mg Ciprofloxacin PO bid Continue 500mg Meropenem IVPB q8 Status: Acute (4) Congestive heart failure (CHF) Assessment & Plan: Cardio consult placed- Dr. Dobson- help appreciated. Consult placed for cardiac clearance prior to vascular procedure. - Myocardial Perfusion Scan showed: Inferolateral Reversible Ischemia -Per Dr. Dobson- Recommended cardiac catheterization prior to vascular surgery. - Patient transferred to [facility] for Cardiac Catheterization 12/20/16. - Hold home lasix 20 mg PO daily secondary to acute on chronic kidney injury - Continue Lopressor 12.5 mg PO BID - Continue Losartan 100 mg PO mcg PO daily - Continue Amlodipine 10 mg PO daily -CXR: No evidence of new infiltrate or consolidation in the lungs. No significant pleural effusion or pneumothorax apparent. Status: Chronic (5) Coronary artery disease Assessment & Plan: Cardio consult placed- Dr. Dobson- help appreciated. Consult placed for cardiac clearance prior to vascular procedure. Aspirin 81 mg PO daily Plavux 75 mg PO daily Crestor 2.5 mg PO HS Status: Chronic (6) Hypothyroidism Assessment & Plan: -Continue Synthroid 100 mcg po AM -TSH 6.33, Free T4 0.96 Status: Chronic (7) Diabetes mellitus Assessment & Plan: -HgbA1c 7.2 -Accuchecks ACHS -RISS -Lantus 10units HS - confirmed by pharmacy Status: Chronic (8) Hypercholesteremia Assessment & Plan: -LDL 125, HDL 24, Cholesterol 187, Triglycerides 208 -Crestor 2.5mg po hs Status: Chronic (9) Acute on chronic renal insufficiency Assessment & Plan: -Improving -BUN/CR: 8/0.8 - f/u labs this AM -Continue D5% Normal saline 75cc/hr IV -Nephrology, Dr. Carmona consulted. Recommends IV fluids prior to angio and close renal function follow-up post procedure -Renal US: Bilateral renal cysts, some of which are mildly complex containing calcifications and septations (see full report) -Per Dr. Carmona, may need kidney CT in future to evaluate complex cysts Status: Acute (10) Hypertension Assessment & Plan: -Hydralazine 10mg ivp q6 prn SBP > 160 -Losartan 50mg po daily -Metprolol 12.5mg po bid Status: Chronic (11) Iron deficiency anemia Assessment & Plan: -Feosol 300mg po bid Status: Chronic (12) Prophylactic measure Assessment & Plan: -Heparin 5000u sc q12 -Protonix 40mg po daily -SCD c/i -PT/OT -Heart healthy moderate consistent carb renal diet -Palliative Care Consult- Full Code. -Plan to discuss goals of care with son with [employer], Eliana Escudero. Status: Acute <Annabel Galindo V - Last Filed: 12/21/16 09:44> Objective - Vital Signs/Intake and Output Vital Signs (last 24 hours): Temp Pulse Resp BP Pulse Ox 97.6 F 82 20 132/73 100 12/21/16 07:00 12/21/16 07:00 12/21/16 07:00 12/21/16 07:00 12/21/16 07:00 Intake and Output: 12/21/16 12/21/16 06:59 18:59 Intake Total 1115 Output Total 1100 Balance 15 - Medications Medications: Current Medications Amlodipine Besylate (Norvasc) 10 mg PO DAILY [facility] Last Admin: 12/20/16 09:14 Dose: 10 mg Aspirin (Aspirin Chewable) 81 mg PO DAILY [facility] Last Admin: 12/18/16 09:52 Dose: 81 mg Ciprofloxacin (Cipro) 500 mg PO BID [facility] Last Admin: 12/20/16 18:00 Dose: Not Given Clopidogrel Bisulfate (Plavix) 75 mg PO DAILY [facility] Last Admin: 12/18/16 09:52 Dose: 75 mg Docusate Sodium (Colace) 100 mg PO BID [facility] Last Admin: 12/20/16 18:00 Dose: Not Given Famotidine (Pepcid) 20 mg PO DAILY [facility] Last Admin: 12/20/16 10:00 Dose: Not Given Ferrous Sulfate (Feosol Liq) 300 mg PO BID [facility] Last Admin: 12/20/16 18:00 Dose: Not Given Hydralazine HCl (Apresoline) 10 mg IVP Q6H PRN PRN Reason: Systolic Blood Pressure Last Admin: 12/16/16 14:30 Dose: 10 mg Dextrose/Sodium Chloride (Dextrose 5%/0.9% Ns 1000 Ml) 1,000 mls @ 75 mls/hr IV .[id number] [facility] Last Admin: 12/20/16 14:22 Dose: Not Given Ampicillin 1 gm/ Sodium (Chloride) 100 mls @ 100 mls/hr IVPB Q6H [facility] Last Admin: 12/21/16 04:10 Dose: 100 mls/hr Insulin Aspart (Novolog) 0 unit SC [facility] PRN Reason: Protocol Last Admin: 12/21/16 07:47 Dose: Not Given Insulin Glargine (Lantus) 5 unit SC [facility] Last Admin: 12/20/16 22:51 Dose: 5 u Levothyroxine Sodium (Synthroid) 100 mcg PO DAILY@0630 [facility] Last Admin: 12/21/16 05:29 Dose: 100 mcg Losartan Potassium (Cozaar) 100 mg PO DAILY [facility] Last Admin: 12/20/16 09:14 Dose: 100 mg Metoprolol Tartrate (Lopressor) 12.5 mg PO 0800,1800 [facility] Last Admin: 12/21/16 08:56 Dose: Not Given Rosuvastatin Calcium (Crestor) 2.5 mg PO [facility] Last Admin: 12/20/16 22:50 Dose: 2.5 mg Saccharomyces Boulardii (Florastor) 250 mg PO BID [facility] Last Admin: 12/20/16 18:00 Dose: Not Given Ticagrelor (Brilinta) 90 mg PO BID [facility] Tramadol HCl (Ultram) 25 mg PO TID PRN PRN Reason: Pain, moderate (4-7) Last Admin: 12/16/16 10:17 Dose: 25 mg - Labs Labs: 12/20/16 08:37 12/20/16 08:37 PT 11.9 SECONDS (9.7-12.2) 12/16/16 13:51 INR 1.1 12/16/16 13:51 APTT 31 SECONDS (21-34) 12/16/16 13:51 Attending/Attestation - Attestation I have personally seen and examined this patient.: Yes I have fully participated in the care of the patient.: Yes I have reviewed all pertinent clinical information, including history, physical exam and plan: Yes Notes (Text): This is a late computer entry for 12/20/16. Patient seen, examined, and case discussed with day-time resident. Patient seen in the afternoon; patient is awake, alert, and indicating pain over his foot. Patient's daughter at bedside. Patient being transferred to [place] for catherization with Dr. Dobson, cardiology, will come back after the procedure. Discussed risks and benefits with patient's son and I confirmed with patient's daughter at bedside. Discussed with Dr. Brown in regards to severity of patient's peripheral vascular disease for future intervention. Pending repeat blood cultures. Plavix and Aspirin held since 12/19/16. Patient is not on anticoagulation prior to cardiac cath.
--- NOTE | 2016-12-20 11:13 | CP.PCM.PN ---
Subjective - Date & Time of Evaluation Date of Evaluation: 12/20/16 Time of Evaluation: 11:12 - Subjective Subjective: 81 y/o male was seen and evaluated at bedside for followup of left foot TMA site nonhealing wound. Patient was resting comfortably in bed. States he has mild pain to LLE. Dressing clean, but falling off. Patient denies any symptoms of N/V/F/SOB/chills and chest pains. Objective - Vital Signs/Intake and Output Vital Signs (last 24 hours): Temp Pulse Resp BP Pulse Ox 97.9 F 79 19 148/64 99 12/20/16 08:01 12/20/16 09:12 12/20/16 08:01 12/20/16 09:12 12/20/16 08:01 Intake and Output: 12/20/16 12/20/16 06:59 18:59 Intake Total 1125 Output Total 450 Balance 675 - Medications Medications: Current Medications Amlodipine Besylate (Norvasc) 10 mg PO DAILY [facility] Last Admin: 12/20/16 09:14 Dose: 10 mg Aspirin (Aspirin Chewable) 81 mg PO DAILY [facility] Last Admin: 12/18/16 09:52 Dose: 81 mg Ciprofloxacin (Cipro) 500 mg PO BID [facility] Last Admin: 12/20/16 09:14 Dose: Not Given Clopidogrel Bisulfate (Plavix) 75 mg PO DAILY [facility] Last Admin: 12/18/16 09:52 Dose: 75 mg Docusate Sodium (Colace) 100 mg PO BID [facility] Last Admin: 12/20/16 09:14 Dose: Not Given Famotidine (Pepcid) 20 mg PO DAILY [facility] Last Admin: 12/19/16 09:50 Dose: 20 mg Ferrous Sulfate (Feosol Liq) 300 mg PO BID [facility] Last Admin: 12/20/16 09:14 Dose: Not Given Hydralazine HCl (Apresoline) 10 mg IVP Q6H PRN PRN Reason: Systolic Blood Pressure Last Admin: 12/16/16 14:30 Dose: 10 mg Meropenem 500 mg/ Sodium (Chloride) 100 mls @ 100 mls/hr IVPB Q8 [facility] Last Admin: 12/20/16 05:10 Dose: 100 mls/hr Dextrose/Sodium Chloride (Dextrose 5%/0.9% Ns 1000 Ml) 1,000 mls @ 75 mls/hr IV .[id number] [facility] Last Admin: 12/19/16 21:59 Dose: 75 mls/hr Insulin Aspart (Novolog) 0 unit SC ACHS [facility] PRN Reason: Protocol Last Admin: 12/20/16 07:22 Dose: Not Given Insulin Glargine (Lantus) 5 unit SC HS [facility] Last Admin: 12/19/16 22:05 Dose: 5 u Levothyroxine Sodium (Synthroid) 100 mcg PO DAILY@0630 [facility] Last Admin: 12/20/16 06:21 Dose: 100 mcg Losartan Potassium (Cozaar) 100 mg PO DAILY [facility] Last Admin: 12/20/16 09:14 Dose: 100 mg Metoprolol Tartrate (Lopressor) 12.5 mg PO 0800,1800 [facility] Last Admin: 12/20/16 08:10 Dose: 12.5 mg Rosuvastatin Calcium (Crestor) 2.5 mg PO HS [facility] Last Admin: 12/19/16 22:04 Dose: 2.5 mg Saccharomyces Boulardii (Florastor) 250 mg PO BID [facility] Last Admin: 12/20/16 09:14 Dose: Not Given Tramadol HCl (Ultram) 25 mg PO TID PRN PRN Reason: Pain, moderate (4-7) Last Admin: 12/16/16 10:17 Dose: 25 mg - Labs Labs: 12/20/16 08:37 12/20/16 08:37 PT 11.9 SECONDS (9.7-12.2) 12/16/16 13:51 INR 1.1 12/16/16 13:51 APTT 31 SECONDS (21-34) 12/16/16 13:51 - Constitutional Appears: No Acute Distress - Extremities Exam Additional comments: LLE exam: Vascular: DP and PT non-palpable, mild foot edema noted, normal skin temp, CFT < 3sec to plantar and dorsal flaps. Derm: non-healing TMA site, serous drainage noted, fibrotic wound bed, probe to bone, eschar noted at the TMA site. Temperature of plantar and dorsal flaps warm to touch. Ortho: No pain with palpation to the TMA site Neuro: Diminished sensation. - Neurological Exam Neurological Exam: Alert, Awake Assessment and Plan - Assessment and Plan (Free Text) Assessment: 81 y/o male patient with non-healing left foot TMA site secondary to PVD Plan: Patient seen and evaluated at bedside with attending Dr. Gaytan TMA site cleansed with sterile saline, dressed with betadine, DSD, kerlix. Plan for bypass per Dr. Brown noted. Podiatry will continue to follow while patient remains in house
[2016-12-20] MEDS: Dextrose 5%/0.9% NS 1,000 ML IV SCH (14:22)
--- NOTE | 2016-12-20 16:32 | CP.PCM.PN ---
Subjective - Date & Time of Evaluation Date of Evaluation: 12/20/16 Time of Evaluation: 16:31 - Subjective Subjective: Surgery: Dr. Brown Pt seen and examined. Resting comfortably in bed. No complaints. Objective - Vital Signs/Intake and Output Vital Signs (last 24 hours): Temp Pulse Resp BP Pulse Ox 97.9 F 79 19 148/64 99 12/20/16 08:01 12/20/16 09:12 12/20/16 08:01 12/20/16 09:12 12/20/16 08:01 Intake and Output: 12/20/16 12/20/16 06:59 18:59 Intake Total 1125 300 Output Total 450 275 Balance 675 25 - Medications Medications: Current Medications Amlodipine Besylate (Norvasc) 10 mg PO DAILY [facility] Last Admin: 12/20/16 09:14 Dose: 10 mg Aspirin (Aspirin Chewable) 81 mg PO DAILY [facility] Last Admin: 12/18/16 09:52 Dose: 81 mg Ciprofloxacin (Cipro) 500 mg PO BID [facility] Last Admin: 12/20/16 09:14 Dose: Not Given Clopidogrel Bisulfate (Plavix) 75 mg PO DAILY [facility] Last Admin: 12/18/16 09:52 Dose: 75 mg Docusate Sodium (Colace) 100 mg PO BID [facility] Last Admin: 12/20/16 09:14 Dose: Not Given Famotidine (Pepcid) 20 mg PO DAILY [facility] Last Admin: 12/20/16 10:00 Dose: Not Given Ferrous Sulfate (Feosol Liq) 300 mg PO BID [facility] Last Admin: 12/20/16 09:14 Dose: Not Given Hydralazine HCl (Apresoline) 10 mg IVP Q6H PRN PRN Reason: Systolic Blood Pressure Last Admin: 12/16/16 14:30 Dose: 10 mg Meropenem 500 mg/ Sodium (Chloride) 100 mls @ 100 mls/hr IVPB Q8 [facility] Last Admin: 12/20/16 14:22 Dose: Not Given Dextrose/Sodium Chloride (Dextrose 5%/0.9% Ns 1000 Ml) 1,000 mls @ 75 mls/hr IV .[id number] [facility] Last Admin: 12/20/16 14:22 Dose: Not Given Insulin Aspart (Novolog) 0 unit SC ACHS [facility] PRN Reason: Protocol Last Admin: 12/20/16 11:56 Dose: Not Given Insulin Glargine (Lantus) 5 unit SC [facility] Last Admin: 12/19/16 22:05 Dose: 5 u Levothyroxine Sodium (Synthroid) 100 mcg PO DAILY@0630 [facility] Last Admin: 12/20/16 06:21 Dose: 100 mcg Losartan Potassium (Cozaar) 100 mg PO DAILY [facility] Last Admin: 12/20/16 09:14 Dose: 100 mg Metoprolol Tartrate (Lopressor) 12.5 mg PO 0800,1800 [facility] Last Admin: 12/20/16 08:10 Dose: 12.5 mg Rosuvastatin Calcium (Crestor) 2.5 mg PO HS [facility] Last Admin: 12/19/16 22:04 Dose: 2.5 mg Saccharomyces Boulardii (Florastor) 250 mg PO BID [facility] Last Admin: 12/20/16 09:14 Dose: Not Given Tramadol HCl (Ultram) 25 mg PO TID PRN PRN Reason: Pain, moderate (4-7) Last Admin: 12/16/16 10:17 Dose: 25 mg - Labs Labs: 12/20/16 08:37 12/20/16 08:37 PT 11.9 SECONDS (9.7-12.2) 12/16/16 13:51 INR 1.1 12/16/16 13:51 APTT 31 SECONDS (21-34) 12/16/16 13:51 - Constitutional Appears: Non-toxic, No Acute Distress - Head Exam Head Exam: ATRAUMATIC, NORMOCEPHALIC - Eye Exam Eye Exam: EOMI - ENT Exam ENT Exam: Mucous Membranes Moist - Neck Exam Neck Exam: Full ROM - Respiratory Exam Respiratory Exam: NORMAL BREATHING PATTERN. absent: Accessory Muscle Use, Respiratory Distress - GI/Abdominal Exam GI & Abdominal Exam: Soft. absent: Tenderness - Extremities Exam Additional comments: LLE dressing in place C/D/I - Neurological Exam Neurological Exam: Alert, Awake, Oriented x3 Assessment and Plan - Assessment and Plan (Free Text) Assessment: 81M w. PVD -Will plan for angio/stent placement following cardiac cath -c/w current medical mangement -d/w attending Yousuf PGY2
--- NOTE | 2016-12-20 16:54 | CP.PCM.PN ---
Subjective - Date & Time of Evaluation Date of Evaluation: 12/20/16 Time of Evaluation: 09:00 - Subjective Subjective: has abnormal stress test high risk for vascular surgery ====> cardiac catheterization prior to vascular surgery then angioplasty cont iv antibiotics Objective - Vital Signs/Intake and Output Vital Signs (last 24 hours): Temp Pulse Resp BP Pulse Ox 97.9 F 79 19 148/64 99 12/20/16 08:01 12/20/16 09:12 12/20/16 08:01 12/20/16 09:12 12/20/16 08:01 Intake and Output: 12/20/16 12/20/16 06:59 18:59 Intake Total 1125 300 Output Total 450 275 Balance 675 25 - Medications Medications: Current Medications Amlodipine Besylate (Norvasc) 10 mg PO DAILY [facility] Last Admin: 12/20/16 09:14 Dose: 10 mg Aspirin (Aspirin Chewable) 81 mg PO DAILY [facility] Last Admin: 12/18/16 09:52 Dose: 81 mg Ciprofloxacin (Cipro) 500 mg PO BID [facility] Last Admin: 12/20/16 09:14 Dose: Not Given Clopidogrel Bisulfate (Plavix) 75 mg PO DAILY [facility] Last Admin: 12/18/16 09:52 Dose: 75 mg Docusate Sodium (Colace) 100 mg PO BID [facility] Last Admin: 12/20/16 09:14 Dose: Not Given Famotidine (Pepcid) 20 mg PO DAILY [facility] Last Admin: 12/20/16 10:00 Dose: Not Given Ferrous Sulfate (Feosol Liq) 300 mg PO BID [facility] Last Admin: 12/20/16 09:14 Dose: Not Given Hydralazine HCl (Apresoline) 10 mg IVP Q6H PRN PRN Reason: Systolic Blood Pressure Last Admin: 12/16/16 14:30 Dose: 10 mg Meropenem 500 mg/ Sodium (Chloride) 100 mls @ 100 mls/hr IVPB Q8 [facility] Last Admin: 12/20/16 14:22 Dose: Not Given Dextrose/Sodium Chloride (Dextrose 5%/0.9% Ns 1000 Ml) 1,000 mls @ 75 mls/hr IV .[id number] [facility] Last Admin: 12/20/16 14:22 Dose: Not Given Insulin Aspart (Novolog) 0 unit SC ACHS [facility] PRN Reason: Protocol Last Admin: 12/20/16 11:56 Dose: Not Given Insulin Glargine (Lantus) 5 unit SC [facility] Last Admin: 12/19/16 22:05 Dose: 5 u Levothyroxine Sodium (Synthroid) 100 mcg PO DAILY@0630 [facility] Last Admin: 12/20/16 06:21 Dose: 100 mcg Losartan Potassium (Cozaar) 100 mg PO DAILY [facility] Last Admin: 12/20/16 09:14 Dose: 100 mg Metoprolol Tartrate (Lopressor) 12.5 mg PO 0800,1800 [facility] Last Admin: 12/20/16 08:10 Dose: 12.5 mg Rosuvastatin Calcium (Crestor) 2.5 mg PO HS [facility] Last Admin: 12/19/16 22:04 Dose: 2.5 mg Saccharomyces Boulardii (Florastor) 250 mg PO BID [facility] Last Admin: 12/20/16 09:14 Dose: Not Given Tramadol HCl (Ultram) 25 mg PO TID PRN PRN Reason: Pain, moderate (4-7) Last Admin: 12/16/16 10:17 Dose: 25 mg - Labs Labs: 12/20/16 08:37 12/20/16 08:37 PT 11.9 SECONDS (9.7-12.2) 12/16/16 13:51 INR 1.1 12/16/16 13:51 APTT 31 SECONDS (21-34) 12/16/16 13:51 - Constitutional Appears: Non-toxic, Chronically Ill - Head Exam Head Exam: NORMOCEPHALIC - Eye Exam Eye Exam: PERRL. 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
[2016-12-20] MEDS: AMPicillin 1 GM in Sodium Chloride 0.9% 100 ML IVPB SCH ×2 (17:00→22:50)
--- NOTE | 2016-12-20 18:11 | CP.PCM.PN ---
Subjective - Date & Time of Evaluation Date of Evaluation: 12/20/16 Time of Evaluation: 18:09 - Subjective Subjective: seen and examined npo for cath no complaints renal function at baseline Objective - Vital Signs/Intake and Output Vital Signs (last 24 hours): Temp Pulse Resp BP Pulse Ox 97.9 F 79 19 148/64 99 12/20/16 08:01 12/20/16 09:12 12/20/16 08:01 12/20/16 09:12 12/20/16 08:01 Intake and Output: 12/20/16 12/20/16 06:59 18:59 Intake Total 1125 300 Output Total 450 275 Balance 675 25 - Medications Medications: Current Medications Amlodipine Besylate (Norvasc) 10 mg PO DAILY [facility] Last Admin: 12/20/16 09:14 Dose: 10 mg Aspirin (Aspirin Chewable) 81 mg PO DAILY [facility] Last Admin: 12/18/16 09:52 Dose: 81 mg Ciprofloxacin (Cipro) 500 mg PO BID [facility] Last Admin: 12/20/16 09:14 Dose: Not Given Clopidogrel Bisulfate (Plavix) 75 mg PO DAILY [facility] Last Admin: 12/18/16 09:52 Dose: 75 mg Docusate Sodium (Colace) 100 mg PO BID [facility] Last Admin: 12/20/16 09:14 Dose: Not Given Famotidine (Pepcid) 20 mg PO DAILY [facility] Last Admin: 12/20/16 10:00 Dose: Not Given Ferrous Sulfate (Feosol Liq) 300 mg PO BID [facility] Last Admin: 12/20/16 09:14 Dose: Not Given Hydralazine HCl (Apresoline) 10 mg IVP Q6H PRN PRN Reason: Systolic Blood Pressure Last Admin: 12/16/16 14:30 Dose: 10 mg Dextrose/Sodium Chloride (Dextrose 5%/0.9% Ns 1000 Ml) 1,000 mls @ 75 mls/hr IV .[id number] [facility] Last Admin: 12/20/16 14:22 Dose: Not Given Ampicillin 1 gm/ Sodium (Chloride) 100 mls @ 100 mls/hr IVPB Q6H [facility] Insulin Aspart (Novolog) 0 unit SC ACHS [facility] PRN Reason: Protocol Last Admin: 12/20/16 11:56 Dose: Not Given Insulin Glargine (Lantus) 5 unit SC HS [facility] Last Admin: 12/19/16 22:05 Dose: 5 u Levothyroxine Sodium (Synthroid) 100 mcg PO DAILY@0630 [facility] Last Admin: 12/20/16 06:21 Dose: 100 mcg Losartan Potassium (Cozaar) 100 mg PO DAILY [facility] Last Admin: 12/20/16 09:14 Dose: 100 mg Metoprolol Tartrate (Lopressor) 12.5 mg PO 0800,1800 [facility] Last Admin: 12/20/16 08:10 Dose: 12.5 mg Rosuvastatin Calcium (Crestor) 2.5 mg PO [facility] Last Admin: 12/19/16 22:04 Dose: 2.5 mg Saccharomyces Boulardii (Florastor) 250 mg PO BID [facility] Last Admin: 12/20/16 09:14 Dose: Not Given Tramadol HCl (Ultram) 25 mg PO TID PRN PRN Reason: Pain, moderate (4-7) Last Admin: 12/16/16 10:17 Dose: 25 mg - Labs Labs: 12/20/16 08:37 12/20/16 08:37 PT 11.9 SECONDS (9.7-12.2) 12/16/16 13:51 INR 1.1 12/16/16 13:51 APTT 31 SECONDS (21-34) 12/16/16 13:51 - Constitutional Appears: Non-toxic, No Acute Distress - Head Exam Head Exam: ATRAUMATIC - Eye Exam Eye Exam: Normal appearance - ENT Exam ENT Exam: Mucous Membranes Moist - Neck Exam Neck Exam: Normal Inspection - Respiratory Exam Respiratory Exam: Clear to Ausculation Bilateral, NORMAL BREATHING PATTERN - Cardiovascular Exam Cardiovascular Exam: REGULAR RHYTHM, RRR - GI/Abdominal Exam GI & Abdominal Exam: Distended, Soft - Extremities Exam Extremities Exam: Normal Inspection, Pedal Edema (trace) Assessment and Plan (1) CKD (chronic kidney disease) stage 3, GFR 30-59 ml/min Status: Acute (2) PVD (peripheral vascular disease) Status: Chronic (3) Acute on chronic renal insufficiency Status: Acute - Assessment and Plan (Free Text) Assessment: at risk for ham gentle iv fluids daily chems ct scan for renal cysts outpatient
[2016-12-20] MEDS: Rosuvastatin Calcium 2.5 mg Tab PO SCH (22:50)
[2016-12-20] MEDS: (Lantus) Insulin Glargine, Recombinant SC SCH (22:51)
[2016-12-21] MEDS: AMPicillin 1 GM in Sodium Chloride 0.9% 100 ML IVPB SCH ×5 (04:10→22:44)
[2016-12-21] MEDS: Levothyroxine 100 MCG TAB PO SCH (05:29)
[2016-12-21] MEDS: (Novolog) Insulin Aspart, Recombinant 100 u/ml 10 ml vial SC SCH ×4 (07:47→22:00)
--- NOTE | 2016-12-21 10:39 | CP.PCM.PN ---
Subjective - Date & Time of Evaluation Date of Evaluation: 12/21/16 Time of Evaluation: 10:39 - Subjective Subjective: Surgery: Dr. Brown Pt seen and examined. Had cardiac cath at [place] yesterday. Results pending. Further management IR vs. Bypass pending cath results -d/w attending Yousuf PGY2 Objective - Vital Signs/Intake and Output Vital Signs (last 24 hours): Temp Pulse Resp BP Pulse Ox 97.6 F 82 20 132/73 100 12/21/16 07:00 12/21/16 07:00 12/21/16 07:00 12/21/16 07:00 12/21/16 07:00 Intake and Output: 12/21/16 12/21/16 06:59 18:59 Intake Total 1115 Output Total 1100 Balance 15 - Medications Medications: Current Medications Amlodipine Besylate (Norvasc) 10 mg PO DAILY [facility] Last Admin: 12/20/16 09:14 Dose: 10 mg Aspirin (Aspirin Chewable) 81 mg PO DAILY [facility] Last Admin: 12/18/16 09:52 Dose: 81 mg Ciprofloxacin (Cipro) 500 mg PO BID [facility] Last Admin: 12/20/16 18:00 Dose: Not Given Clopidogrel Bisulfate (Plavix) 75 mg PO DAILY [facility] Last Admin: 12/18/16 09:52 Dose: 75 mg Docusate Sodium (Colace) 100 mg PO BID [facility] Last Admin: 12/20/16 18:00 Dose: Not Given Famotidine (Pepcid) 20 mg PO DAILY [facility] Last Admin: 12/20/16 10:00 Dose: Not Given Ferrous Sulfate (Feosol Liq) 300 mg PO BID [facility] Last Admin: 12/20/16 18:00 Dose: Not Given Hydralazine HCl (Apresoline) 10 mg IVP Q6H PRN PRN Reason: Systolic Blood Pressure Last Admin: 12/16/16 14:30 Dose: 10 mg Dextrose/Sodium Chloride (Dextrose 5%/0.9% Ns 1000 Ml) 1,000 mls @ 75 mls/hr IV .[id number] [facility] Last Admin: 12/20/16 14:22 Dose: Not Given Ampicillin 1 gm/ Sodium (Chloride) 100 mls @ 100 mls/hr IVPB Q6H [facility] Last Admin: 12/21/16 04:10 Dose: 100 mls/hr Insulin Aspart (Novolog) [address] [facility] PRN Reason: Protocol Last Admin: 12/21/16 07:47 Dose: Not Given Insulin Glargine (Lantus) 5 unit SC [facility] Last Admin: 12/20/16 22:51 Dose: 5 u Levothyroxine Sodium (Synthroid) 100 mcg PO DAILY@0630 [facility] Last Admin: 12/21/16 05:29 Dose: 100 mcg Losartan Potassium (Cozaar) 100 mg PO DAILY [facility] Last Admin: 12/20/16 09:14 Dose: 100 mg Metoprolol Tartrate (Lopressor) 12.5 mg PO 0800,1800 [facility] Last Admin: 12/21/16 08:56 Dose: Not Given Rosuvastatin Calcium (Crestor) 2.5 mg PO [facility] Last Admin: 12/20/16 22:50 Dose: 2.5 mg Saccharomyces Boulardii (Florastor) 250 mg PO BID [facility] Last Admin: 12/20/16 18:00 Dose: Not Given Ticagrelor (Brilinta) 90 mg PO BID [facility] Tramadol HCl (Ultram) 25 mg PO TID PRN PRN Reason: Pain, moderate (4-7) Last Admin: 12/16/16 10:17 Dose: 25 mg - Labs Labs: 12/20/16 08:37 12/20/16 08:37 PT 11.9 SECONDS (9.7-12.2) 12/16/16 13:51 INR 1.1 12/16/16 13:51 APTT 31 SECONDS (21-34) 12/16/16 13:51
[2016-12-21] MEDS: Ferrous Sulfate 300 mg/5 mL Liq UD PO SCH ×2 (11:00→17:56)
[2016-12-21] MEDS: Saccharomyces Boulardi 250 mg Cap PO SCH ×2 (11:00→17:56)
[2016-12-21] MEDS ORDERED: Bisacodyl 5mg EC Tab PO ONE (11:24)
[2016-12-21 13:50] LABS: BASO # 0.1 K/uL (0.0-0.2); BASO % 0.9 % (0.0-2.0); EOS # 0.5 K/uL (0.0-0.7); HEMATOCRIT 35.6 % (35.0-51.0); LYMPH % 26.4 % (20.0-40.0); MEAN CELL VOLUME 75.3 fL (80.0-94.0); MEAN CORPUSCULAR HEMOGLOBIN 23.7 pg (27.0-31.0); MEAN CORPUSCULAR HGB CONC 31.4 g/dL (33.0-37.0); MEAN PLATELET VOLUME 8.1 fL (7.2-11.7); MONO % 13.4 % (0.0-10.0); RED CELL DISTRIBUTION WIDTH 20.2 % (11.5-14.5); WHITE BLOOD COUNT 7.5 K/uL (4.8-10.8)
[2016-12-21 14:06] LABS: CHLORIDE 101 mmol/L (98-107); SODIUM 134 mmol/L (132-148)
[2016-12-21 14:08] LABS: ALB/GLOB RATIO 0.8 (1.0-2.1); AST/SGOT 22 U/L (17-59); BILIRUBIN,TOTAL 0.7 mg/dL (0.2-1.3); CARBON DIOXIDE 21 mmol/L (22-30); GFR AFRICAN-AMERICAN > 60; TOTAL PROTEIN 6.6 g/dL (6.3-8.3)
[2016-12-21 14:09] LABS: ALKALINE PHOSPHATASE 125 U/L (38-126); ALT/SGPT 21 U/L (21-72); BLOOD UREA NITROGEN 7 mg/dL (9-20); CALCIUM 8.7 mg/dl (8.6-10.4); GLUCOSE,RANDOM 156 mg/dL (75-110); MAGNESIUM 1.7 mg/dL (1.6-2.3); PHOSPHOROUS 3.1 mg/dL (2.5-4.5)
--- NOTE | 2016-12-21 16:19 | CP.PCM.PN ---
Subjective - Date & Time of Evaluation Date of Evaluation: 12/21/16 Time of Evaluation: 16:17 - Subjective Subjective: patient seen and examined appears comfortable, denies any pain family at bedside s/p cardiac cath yesterday for abnormal stress test, results not known to me awaiting leg bypass Objective - Vital Signs/Intake and Output Vital Signs (last 24 hours): Temp Pulse Resp BP Pulse Ox 97.6 F 82 20 132/73 100 12/21/16 07:00 12/21/16 07:00 12/21/16 07:00 12/21/16 07:00 12/21/16 07:00 Intake and Output: 12/21/16 12/21/16 06:59 18:59 Intake Total 1115 Output Total 1100 Balance 15 - Medications Medications: Current Medications Amlodipine Besylate (Norvasc) 10 mg PO DAILY [facility] Last Admin: 12/21/16 11:00 Dose: Not Given Aspirin (Aspirin Chewable) 81 mg PO DAILY [facility] Last Admin: 12/18/16 09:52 Dose: 81 mg Ciprofloxacin (Cipro) 500 mg PO BID [facility] Last Admin: 12/21/16 11:00 Dose: Not Given Clopidogrel Bisulfate (Plavix) 75 mg PO DAILY [facility] Last Admin: 12/18/16 09:52 Dose: 75 mg Docusate Sodium (Colace) 100 mg PO BID [facility] Last Admin: 12/21/16 11:00 Dose: Not Given Famotidine (Pepcid) 20 mg PO DAILY [facility] Last Admin: 12/21/16 11:00 Dose: Not Given Ferrous Sulfate (Feosol Liq) 300 mg PO BID [facility] Last Admin: 12/21/16 11:00 Dose: Not Given Hydralazine HCl (Apresoline) 10 mg IVP Q6H PRN PRN Reason: Systolic Blood Pressure Last Admin: 12/16/16 14:30 Dose: 10 mg Dextrose/Sodium Chloride (Dextrose 5%/0.9% Ns 1000 Ml) 1,000 mls @ 75 mls/hr IV .[id number] [facility] Last Admin: 12/20/16 14:22 Dose: Not Given Ampicillin 1 gm/ Sodium (Chloride) 100 mls @ 100 mls/hr IVPB Q6H [facility] Last Admin: 12/21/16 11:06 Dose: Not Given Insulin Aspart (Novolog) 0 unit SC ACHS [facility] PRN Reason: Protocol Last Admin: 12/21/16 12:05 Dose: Not Given Insulin Glargine (Lantus) 5 unit SC HS [facility] Last Admin: 12/20/16 22:51 Dose: 5 u Levothyroxine Sodium (Synthroid) 100 mcg PO DAILY@0630 [facility] Last Admin: 12/21/16 05:29 Dose: 100 mcg Losartan Potassium (Cozaar) 100 mg PO DAILY [facility] Last Admin: 12/21/16 11:00 Dose: Not Given Metoprolol Tartrate (Lopressor) 12.5 mg PO 0800,1800 [facility] Last Admin: 12/21/16 08:56 Dose: Not Given Rosuvastatin Calcium (Crestor) 2.5 mg PO [facility] Last Admin: 12/20/16 22:50 Dose: 2.5 mg Saccharomyces Boulardii (Florastor) 250 mg PO BID [facility] Last Admin: 12/21/16 11:00 Dose: Not Given Ticagrelor (Brilinta) 90 mg PO BID [facility] Last Admin: 12/21/16 11:06 Dose: Not Given Tramadol HCl (Ultram) 25 mg PO TID PRN PRN Reason: Pain, moderate (4-7) Last Admin: 12/16/16 10:17 Dose: 25 mg - Labs Labs: 12/21/16 13:43 12/21/16 13:43 PT 11.9 SECONDS (9.7-12.2) 12/16/16 13:51 INR 1.1 12/16/16 13:51 APTT 31 SECONDS (21-34) 12/16/16 13:51 - Constitutional Appears: Non-toxic, No Acute Distress, Chronically Ill - Head Exam Head Exam: NORMAL INSPECTION - Eye Exam Eye Exam: Normal appearance - ENT Exam ENT Exam: Mucous Membranes Moist, Normal Exam - Neck Exam Neck Exam: Normal Inspection - Respiratory Exam Respiratory Exam: Clear to Ausculation Bilateral, NORMAL BREATHING PATTERN - Cardiovascular Exam Cardiovascular Exam: REGULAR RHYTHM, RRR - GI/Abdominal Exam GI & Abdominal Exam: Soft, Normal Bowel Sounds - Extremities Exam Extremities Exam: Normal Inspection (no edema) Assessment and Plan (1) CKD (chronic kidney disease) stage 3, GFR 30-59 ml/min Status: Acute (2) PVD (peripheral vascular disease) Status: Chronic (3) Acute on chronic renal insufficiency Status: Acute - Assessment and Plan (Free Text) Assessment: daily chems dc iv fluids ct scan for complex renal cysts outpatient
--- NOTE | 2016-12-21 17:35 | CP.PCM.PN ---
Subjective - Date & Time of Evaluation Date of Evaluation: 12/21/16 Time of Evaluation: 17:00 - Subjective Subjective: Patient feels well. s/p PCI LAD, Ramus branch. On ASA,Brilinta Objective - Vital Signs/Intake and Output Vital Signs (last 24 hours): Temp Pulse Resp BP Pulse Ox 98.3 F 94 H 20 155/71 H 96 12/21/16 15:46 12/21/16 15:46 12/21/16 15:46 12/21/16 15:46 12/21/16 15:46 Intake and Output: 12/21/16 12/21/16 06:59 18:59 Intake Total 1115 350 Output Total 1100 500 Balance 15 -150 - Medications Medications: Current Medications Amlodipine Besylate (Norvasc) 10 mg PO DAILY [facility] Last Admin: 12/21/16 11:00 Dose: Not Given Aspirin (Aspirin Chewable) 81 mg PO DAILY [facility] Last Admin: 12/18/16 09:52 Dose: 81 mg Ciprofloxacin (Cipro) 500 mg PO BID [facility] Last Admin: 12/21/16 11:00 Dose: Not Given Clopidogrel Bisulfate (Plavix) 75 mg PO DAILY [facility] Last Admin: 12/18/16 09:52 Dose: 75 mg Docusate Sodium (Colace) 100 mg PO BID [facility] Last Admin: 12/21/16 11:00 Dose: Not Given Famotidine (Pepcid) 20 mg PO DAILY [facility] Last Admin: 12/21/16 11:00 Dose: Not Given Ferrous Sulfate (Feosol Liq) 300 mg PO BID [facility] Last Admin: 12/21/16 11:00 Dose: Not Given Hydralazine HCl (Apresoline) 10 mg IVP Q6H PRN PRN Reason: Systolic Blood Pressure Last Admin: 12/16/16 14:30 Dose: 10 mg Ampicillin 1 gm/ Sodium (Chloride) 100 mls @ 100 mls/hr IVPB Q6H [facility] Last Admin: 12/21/16 11:06 Dose: Not Given Insulin Aspart (Novolog) 0 unit SC ACHS [facility] PRN Reason: Protocol Last Admin: 12/21/16 12:05 Dose: Not Given Insulin Glargine (Lantus) 5 unit SC HS [facility] Last Admin: 12/20/16 22:51 Dose: 5 u Levothyroxine Sodium (Synthroid) 100 mcg PO DAILY@0630 [facility] Last Admin: 12/21/16 05:29 Dose: 100 mcg Losartan Potassium (Cozaar) 100 mg PO DAILY [facility] Last Admin: 12/21/16 11:00 Dose: Not Given Metoprolol Tartrate (Lopressor) 12.5 mg PO 0800,1800 [facility] Last Admin: 12/21/16 08:56 Dose: Not Given Rosuvastatin Calcium (Crestor) 2.5 mg PO HS [facility] Last Admin: 12/20/16 22:50 Dose: 2.5 mg Saccharomyces Boulardii (Florastor) 250 mg PO BID [facility] Last Admin: 12/21/16 11:00 Dose: Not Given Ticagrelor (Brilinta) 90 mg PO BID [facility] Last Admin: 12/21/16 11:06 Dose: Not Given Tramadol HCl (Ultram) 25 mg PO TID PRN PRN Reason: Pain, moderate (4-7) Last Admin: 12/16/16 10:17 Dose: 25 mg - Labs Labs: 12/21/16 13:43 12/21/16 13:43 PT 11.9 SECONDS (9.7-12.2) 12/16/16 13:51 INR 1.1 12/16/16 13:51 APTT 31 SECONDS (21-34) 12/16/16 13:51 - Constitutional Appears: Non-toxic - Head Exam Head Exam: NORMAL INSPECTION - Eye Exam Eye Exam: Normal appearance - ENT Exam ENT Exam: Mucous Membranes Moist - Neck Exam Neck Exam: Full ROM - Cardiovascular Exam Cardiovascular Exam: REGULAR RHYTHM - GI/Abdominal Exam GI & Abdominal Exam: Normal Bowel Sounds - Rectal Exam Rectal Exam: Deferred - Extremities Exam Extremities Exam: absent: Pedal Edema - Back Exam Back Exam: NORMAL INSPECTION - Neurological Exam Neurological Exam: Alert - Psychiatric Exam Psychiatric exam: Normal Affect - Skin Skin Exam: Normal Color Assessment and Plan (1) Coronary artery disease Assessment & Plan: s/p PCI LAD/ramus. will continue ASA/Brilinta. cannot stop givne PCI LAD/ramus Status: Chronic (2) PVD (peripheral vascular disease) Assessment & Plan: for endovascular intervention Status: Chronic (3) Pre-operative cardiovascular examination Assessment & Plan: optimized for endovascular intervention Status: Acute (4) Hypertension Assessment & Plan: blood pressure control Status: Chronic
[2016-12-21] MEDS: Rosuvastatin Calcium 2.5 mg Tab PO SCH (21:49)
[2016-12-21] MEDS: (Lantus) Insulin Glargine, Recombinant SC SCH (22:01)
--- NOTE | 2016-12-21 23:14 | CP.PCM.PN ---
<BarronMarinanahum Leiva - Last Filed: 12/22/16 00:22> Subjective - Date & Time of Evaluation Date of Evaluation: 12/21/16 Time of Evaluation: 09:50 - Subjective Subjective: Medicine Note (PGY 1) : Dr. Galindo's service Patient was seen and examined at bedside. Patient was not well-oriented and as per nurse patient refused morning medications. Patient did deny any problems over night and had no new complaints. Objective - Vital Signs/Intake and Output Vital Signs (last 24 hours): Temp Pulse Resp BP Pulse Ox 98.3 F 93 H 20 172/67 H 96 12/21/16 15:46 12/21/16 17:57 12/21/16 15:46 12/21/16 17:57 12/21/16 15:46 Intake and Output: 12/21/16 12/22/16 18:59 06:59 Intake Total 350 Output Total 500 Balance -150 - Medications Medications: Current Medications Amlodipine Besylate (Norvasc) 10 mg PO DAILY [facility] Last Admin: 12/21/16 11:00 Dose: Not Given Aspirin (Aspirin Chewable) 81 mg PO DAILY [facility] Last Admin: 12/18/16 09:52 Dose: 81 mg Ciprofloxacin (Cipro) 500 mg PO BID [facility] Last Admin: 12/21/16 17:56 Dose: 500 mg Clopidogrel Bisulfate (Plavix) 75 mg PO DAILY [facility] Last Admin: 12/18/16 09:52 Dose: 75 mg Docusate Sodium (Colace) 100 mg PO BID [facility] Last Admin: 12/21/16 17:56 Dose: 100 mg Famotidine (Pepcid) 20 mg PO DAILY [facility] Last Admin: 12/21/16 11:00 Dose: Not Given Ferrous Sulfate (Feosol Liq) 300 mg PO BID [facility] Last Admin: 12/21/16 17:56 Dose: 300 mg Hydralazine HCl (Apresoline) 10 mg IVP Q6H PRN PRN Reason: Systolic Blood Pressure Last Admin: 12/16/16 14:30 Dose: 10 mg Ampicillin 1 gm/ Sodium (Chloride) 100 mls @ 100 mls/hr IVPB Q6H [facility] Last Admin: 12/21/16 22:44 Dose: Not Given Insulin Aspart (Novolog) 0 unit SC ACHS [facility] PRN Reason: Protocol Last Admin: 12/21/16 22:00 Dose: Not Given Insulin Glargine (Lantus) 5 unit SC [facility] Last Admin: 12/21/16 22:01 Dose: 5 u Levothyroxine Sodium (Synthroid) 100 mcg PO DAILY@0630 [facility] Last Admin: 12/21/16 05:29 Dose: 100 mcg Losartan Potassium (Cozaar) 100 mg PO DAILY [facility] Last Admin: 12/21/16 11:00 Dose: Not Given Metoprolol Tartrate (Lopressor) 12.5 mg PO 0800,1800 [facility] Last Admin: 12/21/16 17:56 Dose: 12.5 mg Rosuvastatin Calcium (Crestor) 2.5 mg PO HS [facility] Last Admin: 12/21/16 21:49 Dose: 2.5 mg Saccharomyces Boulardii (Florastor) 250 mg PO BID [facility] Last Admin: 12/21/16 17:56 Dose: 250 mg Ticagrelor (Brilinta) 90 mg PO BID [facility] Last Admin: 12/21/16 17:56 Dose: 90 mg Tramadol HCl (Ultram) 25 mg PO TID PRN PRN Reason: Pain, moderate (4-7) Last Admin: 12/16/16 10:17 Dose: 25 mg - Labs Labs: 12/21/16 13:43 12/21/16 13:43 PT 11.9 SECONDS (9.7-12.2) 12/16/16 13:51 INR 1.1 12/16/16 13:51 APTT 31 SECONDS (21-34) 12/16/16 13:51 - Head Exam Head Exam: NORMAL INSPECTION, NORMOCEPHALIC - Eye Exam Eye Exam: EOMI, Normal appearance - ENT Exam ENT Exam: Mucous Membranes Moist, Normal Exam - Respiratory Exam Respiratory Exam: Clear to Ausculation Bilateral, NORMAL BREATHING PATTERN - Cardiovascular Exam Cardiovascular Exam: REGULAR RHYTHM, +S1, +S2 - GI/Abdominal Exam GI & Abdominal Exam: Soft, Normal Bowel Sounds - Extremities Exam Extremities Exam: Normal Capillary Refill, Normal Inspection, Tenderness (non- healing MTA ) - Neurological Exam Neurological Exam: Alert, Awake - Psychiatric Exam Psychiatric exam: Normal Affect, Normal Mood - Skin Skin Exam: Dry, Normal Color, Warm Assessment and Plan - Assessment and Plan (Free Text) Assessment: (1) 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 Gaytan consulted. Podiatry plans to follow while patient is hospitalized. - Patient had TMA 10/17/[address] Gaytan. -Tramadol 25mg po tid prn pain Infectious Disease- Dr. Galindo- help appreciated. -Wound culture 12/12/16: Pseudomononas Aeruginosa, Enterococcus faecalis -Currently on Meropenem 500 mg IV Q8h MALU day 5 and Ciprofloxacin 500mg PO Q12H day [address] Brown consulted- help appreciated. -Patient is s/p aortofemoral angiogram via right groin with selective catherization of left femoral artery 12/17/16. -Patient for possible femoral bypass with Dr. Brown. Surgery planning. - Continue Plavix 75 mg PO daily - Continue Aspirin 81 mg PO daily Imaging: Abdominal Angiography: CTA ABDOMEN PELVIS:1. Moderate calcific plaque throughout the abdominal aorta without stenosis. 2. Severe calcific plaqueat the origin of the celiac artery with severe stenosis of the celiac artery. There is poststenotic dilatation. 3. There is moderate stenosis of the origin of the superior mesenteric artery. 4. Both renal arteries have moderate stenosis at the origin. LEFT LOWER EXTREMITY CT ANGIOGRAM:1. Unremarkable common femoral artery. 2. Patent distal SFA stent. 3. Popliteal artery has moderate diffuse stenosis. 4. Left runoff shows patent anterior tibial artery. Posterior tibial artery and peroneal artery believed to be occluded. RIGHT LOWER EXTREMITY CTA:1. Common femoral artery is unremarkable 2. Moderate calcific plaque throughout the SFA with there is a moderate stenosis in the mid SFA. 3. Moderate stenosis of popliteal artery 4. Unremarkable anterior tibial artery. Posterior tibial artery and peroneal artery believed to be occluded. NONVASCULAR FINDINGS: Prostate measures 6.7 centimeter AP x 5.4 centimeter transverse with mass effect on the urinary bladder. On last visit: Arterial doppler: 1.) Occluded left posterior tibial artery. No flow detected throughout the vessel. 2.) Continuous monophasic waveforms, beginning at left superficial femoral artery level. Calcific plaques notted throughout bilateral lower extremities. Slightly increased velocities due to vessel narrowing. No evidence of arterial occlusions of bilateral extremity arteries above the knee. (see full report) s/p angiogram - aortofemoral angiogram via right groin, selective angiogram left femoral artery. pathway atherectomy. 40% proximal sfa occlusion and 100% mid and distal sfa occlusion (see full report). Status: Chronic (2) PVD (peripheral vascular disease) Assessment & Plan: Vascular surgeon Dr. Brown consulted ---> help appreciated. -Patient is s/p aortofemoral angiogram via right groin with selective catherization of left femoral artery 12/17/16. -Patient for possible Endovascular Stent placement with Dr. Brown. Surgery planning. - Continue Plavix 75 mg PO daily - Continue Aspirin 81 mg PO daily - awaiting leg bypass Status: Chronic (3) Bacteremia Assessment & Plan: ID consult placed- Dr. Galindo ---> help appreciated. Blood Cx positive for Corynebacterium on 12/11/16 X2. Continue 500mg Ciprofloxacin PO bid Continue 500mg Meropenem IVPB q8 Status: Acute (4) Congestive heart failure (CHF) Assessment & Plan: Cardio consult placed- Dr. Dobson- help appreciated. Consult placed for cardiac clearance prior to vascular procedure. - Myocardial Perfusion Scan showed: Inferolateral Reversible Ischemia -Per Dr. Dobson- Recommended cardiac catheterization prior to vascular surgery. - Patient transferred to [facility] for Cardiac Catheterization 12/20/16. - Hold home lasix 20 mg PO daily secondary to acute on chronic kidney injury - Continue Lopressor 12.5 mg PO BID - Continue Losartan 100 mg PO mcg PO daily - Continue Amlodipine 10 mg PO daily -CXR: No evidence of new infiltrate or consolidation in the lungs. No significant pleural effusion or pneumothorax apparent. Status: Chronic (5) Coronary artery disease Assessment & Plan: Cardio consult placed- Dr. Dobson- help appreciated. Consult placed for cardiac clearance prior to vascular procedure. Cardiac catherization performed on 12/20/16 at [facility], with initial result stating Stent in the LAD (Double Vessels disease) As per conversation with Dr. dobson, he will communicate with IR and General surgery regarding cardiac clearance Aspirin 81 mg PO daily Plavux 75 mg PO daily Crestor 2.5 mg PO HS Status: Chronic (6) Hypothyroidism Assessment & Plan: -Continue Synthroid 100 mcg po AM -TSH 6.33, Free T4 0.96 Status: Chronic (7) Diabetes mellitus Assessment & Plan: -HgbA1c 7.2 -Accuchecks ACHS -RISS -Lantus 10units HS - confirmed by pharmacy Status: Chronic (8) Hypercholesteremia Assessment & Plan: -LDL 125, HDL 24, Cholesterol 187, Triglycerides 208 -Crestor 2.5mg po hs Status: Chronic (9) Acute on chronic renal insufficiency Assessment & Plan: -Improving -BUN/CR: 8/0.8 - f/u labs this AM -Continue D5% Normal saline 75cc/hr IV -Nephrology, Dr. Carmona consulted. Recommends IV fluids prior to angio and close renal function follow-up post procedure -Renal US: Bilateral renal cysts, some of which are mildly complex containing calcifications and septations (see full report) -Per Dr. Carmona, may need kidney CT in future to evaluate complex cysts Status: Acute (10) Hypertension Assessment & Plan: -Hydralazine 10mg ivp q6 prn SBP > 160 -Losartan 50mg po daily -Metprolol 12.5mg po bid Status: Chronic (11) Iron deficiency anemia Assessment & Plan: -Feosol 300mg po bid Status: Chronic (12) Prophylactic measure Assessment & Plan: -Heparin 5000u sc q12 -Protonix 40mg po daily -SCD c/i -PT/OT -Heart healthy moderate consistent carb renal diet - Bedside commode -Palliative Care Consult- Full Code. -Plan to discuss goals of care with son with [employer], Eliana Escudero. Status: Acute <Annabel Galindo V - Last Filed: 12/24/16 06:40> Objective - Vital Signs/Intake and Output Vital Signs (last 24 hours): Temp Pulse Resp BP Pulse Ox 97.7 F 68 20 157/72 H 97 12/24/16 04:00 12/24/16 04:03 12/24/16 04:00 12/24/16 04:00 12/24/16 04:00 Intake and Output: 12/23/16 12/24/16 18:59 06:59 Intake Total 600 350 Output Total 500 Balance 100 350 - Medications Medications: Current Medications Amlodipine Besylate (Norvasc) 10 mg PO DAILY [facility] Last Admin: 12/23/16 11:00 Dose: 10 mg Aspirin (Aspirin Chewable) 81 mg PO DAILY [facility] Last Admin: 12/23/16 22:13 Dose: 81 mg Ciprofloxacin (Cipro) 500 mg PO BID [facility] Last Admin: 12/23/16 18:49 Dose: 500 mg Docusate Sodium (Colace) 100 mg PO BID [facility] Last Admin: 12/23/16 18:49 Dose: 100 mg Famotidine (Pepcid) 20 mg PO DAILY [facility] Last Admin: 12/23/16 11:00 Dose: 20 mg Ferrous Sulfate (Feosol Liq) 300 mg PO BID [facility] Last Admin: 12/23/16 18:49 Dose: 300 mg Hydralazine HCl (Apresoline) 10 mg IVP Q6H PRN PRN Reason: Systolic Blood Pressure Last Admin: 12/16/16 14:30 Dose: 10 mg Ampicillin 1 gm/ Sodium (Chloride) 100 mls @ 100 mls/hr IVPB Q6H [facility] Last Admin: 12/24/16 04:48 Dose: 100 mls/hr Dextrose/Sodium Chloride (Dextrose 5%/0.45% Ns 1000 Ml) 1,000 mls @ 50 mls/hr IV .Q20H [facility] Last Admin: 12/23/16 22:11 Dose: 50 mls/hr Insulin Aspart (Novolog) 0 unit SC [facility] PRN Reason: Protocol Last Admin: 12/23/16 22:11 Dose: Not Given Insulin Glargine (Lantus) 5 unit SC [facility] Last Admin: 12/23/16 22:10 Dose: Not Given Levothyroxine Sodium (Synthroid) 100 mcg PO DAILY@0630 [facility] Last Admin: 12/24/16 05:55 Dose: 100 mcg Losartan Potassium (Cozaar) 100 mg PO DAILY [facility] Last Admin: 12/23/16 11:00 Dose: 100 mg Metoprolol Tartrate (Lopressor) 12.5 mg PO 0800,1800 [facility] Last Admin: 12/23/16 18:50 Dose: 12.5 mg Rosuvastatin Calcium (Crestor) 2.5 mg PO [facility] Last Admin: 12/23/16 22:10 Dose: 2.5 mg Saccharomyces Boulardii (Florastor) 250 mg PO BID [facility] Last Admin: 12/23/16 18:49 Dose: 250 mg Ticagrelor (Brilinta) 90 mg PO BID [facility] Last Admin: 12/23/16 18:00 Dose: 90 mg Tramadol HCl (Ultram) 25 mg PO TID PRN PRN Reason: Pain, moderate (4-7) Last Admin: 12/16/16 10:17 Dose: 25 mg - Labs Labs: 12/23/16 19:58 12/23/16 19:58 PT 11.9 SECONDS (9.7-12.2) 12/16/16 13:51 INR 1.1 12/16/16 13:51 APTT 31 SECONDS (21-34) 12/16/16 13:51 Attending/Attestation - Attestation I have personally seen and examined this patient.: Yes I have fully participated in the care of the patient.: Yes I have reviewed all pertinent clinical information, including history, physical exam and plan: Yes Notes (Text): This is late computer entry for 12/21/16. patient seen, examined and case discussed with day-time resident. Patient is post-op cardiac catherization POD1. Patient has had 2 stents placed by cardiology; procedure note is [facility] EMR not linked to [facility] current hospitalization. Per cardio to determine cardiac risk prior to procedure. Surgery to determine when patient to go to the OR. Surgery decision- making including preop/intraop/postoperative per surgery. Patient's repeat blood culture is negative thus far. Patient is on IV Abx and PO Abx per Infectious disease. Patient does not have pain at cath site. 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 Gaytan consulted. Podiatry plans to follow while patient is hospitalized. - Patient had TMA 10/17/[address] Gaytan. -Tramadol 25mg po tid prn pain Infectious Disease- Dr. Galindo- help appreciated. -Wound culture 12/12/16: Pseudomononas Aeruginosa, Enterococcus faecalis -Currently on Ampicillin 1 gram IV Q 6 hours (active since 12/20/16) and Ciprofloxacin 500mg PO Q12H (active since 12/15/16_ Vascular surgeon Dr. Brown consulted- help appreciated. -Patient is s/p aortofemoral angiogram via right groin with selective catherization of left femoral artery 12/17/16. .Surgery preop/intropa/post per surgery. -Continue Brilinta 90 mg PO bid and Continue Aspirin 81 mg PO daily; Imaging: Abdominal Angiography: CTA ABDOMEN PELVIS:1. Moderate calcific plaque throughout the abdominal aorta without stenosis. 2. Severe calcific plaqueat the origin of the celiac artery with severe stenosis of the celiac artery. There is poststenotic dilatation. 3. There is moderate stenosis of the origin of the superior mesenteric artery. 4. Both renal arteries have moderate stenosis at the origin. LEFT LOWER EXTREMITY CT ANGIOGRAM:1. Unremarkable common femoral artery. 2. Patent distal SFA stent. 3. Popliteal artery has moderate diffuse stenosis. 4. Left runoff shows patent anterior tibial artery. Posterior tibial artery and peroneal artery believed to be occluded. RIGHT LOWER EXTREMITY CTA:1. Common femoral artery is unremarkable 2. Moderate calcific plaque throughout the SFA with there is a moderate stenosis in the mid SFA. 3. Moderate stenosis of popliteal artery 4. Unremarkable anterior tibial artery. Posterior tibial artery and peroneal artery believed to be occluded. NONVASCULAR FINDINGS: Prostate measures 6.7 centimeter AP x 5.4 centimeter transverse with mass effect on the urinary bladder. On last visit: Arterial doppler: 1.) Occluded left posterior tibial artery. No flow detected throughout the vessel. 2.) Continuous monophasic waveforms, beginning at left superficial femoral artery level. Calcific plaques notted throughout bilateral lower extremities. Slightly increased velocities due to vessel narrowing. No evidence of arterial occlusions of bilateral extremity arteries above the knee. (see full report) s/p angiogram - aortofemoral angiogram via right groin, selective angiogram left femoral artery. pathway atherectomy. 40% proximal sfa occlusion and 100% mid and distal sfa occlusion (see full report). Status: Chronic (2) PVD (peripheral vascular disease) Assessment & Plan: Vascular surgeon Dr. Brown consulted ---> help appreciated. -Patient is s/p aortofemoral angiogram via right groin with selective catherization of left femoral artery 12/17/16 - Continue Brilinta 90 mg PO BID and Continue Aspirin 81 mg PO daily--> patient has 2 cardiac stents Status: Chronic (3) Bacteremia Assessment & Plan: ID consult placed- Dr. Galindo ---> help appreciated. Blood Cx positive for Corynebacterium on 12/11/16 X2. Blood culture (12/19/16): negative thus far Continue 500mg Ciprofloxacin PO bid Continue 1gm Ampicillin IVPB Q6H Florastor 250mg PO bid Status: Acute (4) Congestive heart failure (CHF) Assessment & Plan: Cardio consult placed- Dr. Dobson- help appreciated. Consult placed for cardiac clearance prior to vascular procedure. - Myocardial Perfusion Scan showed: Inferolateral Reversible Ischemia - Patient transferred to [facility] for Cardiac Catheterization 12/20/16. - s/p Catheterization: PCI LAD, Ramus branch - Hold home lasix 20 mg PO daily secondary to acute on chronic kidney injury - Continue Lopressor 12.5 mg PO BID - Continue Losartan 100 mg PO mg PO daily - Continue Amlodipine 10 mg PO daily -Aspirin 81mg PO daily -Brilnta 90mg PO bid -CXR: No evidence of new infiltrate or consolidation in the lungs. No significant pleural effusion or pneumothorax apparent. Status: Chronic (5) Coronary artery disease Assessment & Plan: Cardio consult placed- Dr. Dobson- help appreciated. Consult placed for cardiac clearance prior to vascular procedure. Cardiac catherization performed on 12/20/16 at [facility], with initial result stating Stent in the LAD (Double Vessels disease) As per conversation with Dr. dobson, he will communicate with IR and General surgery regarding cardiac clearance Aspirin 81 mg PO daily Brilinta 90mg PO bid Crestor 2.5 mg PO HS Status: Chronic (6) Hypothyroidism Assessment & Plan: -Continue Synthroid 100 mcg po AM -TSH 6.33, Free T4 0.96 Status: Chronic (7) Diabetes mellitus Assessment & Plan: -HgbA1c 7.2 -Accuchecks ACHS -RISS -Lantus 5units HS (1/2 dose prior to procedure) Started on gentle IV hydration to prevent hypoglycemia overnight Status: Chronic (8) Hypercholesteremia Assessment & Plan: -LDL 125, HDL 24, Cholesterol 187, Triglycerides 208 -Crestor 2.5mg po hs Status: Chronic (9) Acute on chronic renal insufficiency Assessment & Plan: -Improving -BUN/CR -Continue D5% Normal saline 75cc/hr IV -Nephrology, Dr. Carmona consulted-->help appreciated -Renal US: Bilateral renal cysts, some of which are mildly complex containing calcifications and septations (see full report) -Per Dr. Carmona, may need kidney CT in future to evaluate complex cysts Status: Acute (10) Hypertension Assessment & Plan: -Hydralazine 10mg ivp q6 prn SBP > 160 -Losartan 50mg po daily -Metprolol 12.5mg po bid -Norvasc 10mg PO daily Status: Chronic (11) Iron deficiency anemia Assessment & Plan: -Feosol 300mg po bid Status: Chronic (12) Prophylactic measure Assessment & Plan: -held anticoagulation Heparin 5000u sc q12 -Pepcid 20mg PO daily -SCD c/i -PT/OT -Heart healthy moderate consistent carb renal diet - Bedside commode -Palliative Care Consult- Full Code. Status: Acute
--- NOTE | 2016-12-22 00:49 | CP.PCM.PN ---
<Vanessa Hutson - Last Filed: 12/22/16 04:00> Subjective - Date & Time of Evaluation Date of Evaluation: 12/22/16 Time of Evaluation: 00:30 - Subjective Subjective: Medicine Note (PGY 1) : Dr. Galindo's service Patient was seen and examined at bedside. Patient was not well-oriented. As per nurse patient removed IV and would not let her insert another IV. Patient denied chest pain, shortness of breath, nausea, vomiting, diarrhea, or constipation. Patient stated his left foot was tender to touch. Objective - Vital Signs/Intake and Output Vital Signs (last 24 hours): Temp Pulse Resp BP Pulse Ox 98.3 F 93 H 20 172/67 H 96 12/21/16 15:46 12/21/16 17:57 12/21/16 15:46 12/21/16 17:57 12/21/16 15:46 Intake and Output: 12/21/16 12/22/16 18:59 06:59 Intake Total 350 320 Output Total 500 Balance -150 320 - Medications Medications: Current Medications Amlodipine Besylate (Norvasc) 10 mg PO DAILY [facility] Last Admin: 12/21/16 11:00 Dose: Not Given Aspirin (Aspirin Chewable) 81 mg PO DAILY [facility] Last Admin: 12/18/16 09:52 Dose: 81 mg Ciprofloxacin (Cipro) 500 mg PO BID [facility] Last Admin: 12/21/16 17:56 Dose: 500 mg Clopidogrel Bisulfate (Plavix) 75 mg PO DAILY [facility] Last Admin: 12/18/16 09:52 Dose: 75 mg Docusate Sodium (Colace) 100 mg PO BID [facility] Last Admin: 12/21/16 17:56 Dose: 100 mg Famotidine (Pepcid) 20 mg PO DAILY [facility] Last Admin: 12/21/16 11:00 Dose: Not Given Ferrous Sulfate (Feosol Liq) 300 mg PO BID [facility] Last Admin: 12/21/16 17:56 Dose: 300 mg Hydralazine HCl (Apresoline) 10 mg IVP Q6H PRN PRN Reason: Systolic Blood Pressure Last Admin: 12/16/16 14:30 Dose: 10 mg Ampicillin 1 gm/ Sodium (Chloride) 100 mls @ 100 mls/hr IVPB Q6H [facility] Last Admin: 06/23/17 22:44 Dose: Not Given Insulin Aspart (Novolog) 0 unit SC [facility] PRN Reason: Protocol Last Admin: 12/21/16 22:00 Dose: Not Given Insulin Glargine (Lantus) 5 unit SC [facility] Last Admin: 12/21/16 22:01 Dose: 5 u Levothyroxine Sodium (Synthroid) 100 mcg PO DAILY@0630 [facility] Last Admin: 12/21/16 05:29 Dose: 100 mcg Losartan Potassium (Cozaar) 100 mg PO DAILY [facility] Last Admin: 12/21/16 11:00 Dose: Not Given Metoprolol Tartrate (Lopressor) 12.5 mg PO 0800,1800 [facility] Last Admin: 12/21/16 17:56 Dose: 12.5 mg Rosuvastatin Calcium (Crestor) 2.5 mg PO [facility] Last Admin: 12/21/16 21:49 Dose: 2.5 mg Saccharomyces Boulardii (Florastor) 250 mg PO BID [facility] Last Admin: 12/21/16 17:56 Dose: 250 mg Ticagrelor (Brilinta) 90 mg PO BID [facility] Last Admin: 12/21/16 17:56 Dose: 90 mg Tramadol HCl (Ultram) 25 mg PO TID PRN PRN Reason: Pain, moderate (4-7) Last Admin: 12/16/16 10:17 Dose: 25 mg - Labs Labs: 12/21/16 13:43 12/21/16 13:43 PT 11.9 SECONDS (9.7-12.2) 12/16/16 13:51 INR 1.1 12/16/16 13:51 APTT 31 SECONDS (21-34) 12/16/16 13:51 - Constitutional Appears: No Acute Distress - Respiratory Exam Respiratory Exam: NORMAL BREATHING PATTERN - Cardiovascular Exam Cardiovascular Exam: REGULAR RHYTHM, +S1, +S2 - GI/Abdominal Exam GI & Abdominal Exam: Soft, Normal Bowel Sounds. absent: Tenderness - Extremities Exam Extremities Exam: Tenderness (non-healing MTA) - Neurological Exam Neurological Exam: Alert, Awake. 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 Gaytan consulted. Podiatry plans to follow while patient is hospitalized. - Patient had TMA 10/17/[address] Gaytan. -Tramadol 25mg po tid prn pain Infectious Disease- Dr. Galindo- help appreciated. -Wound culture 12/12/16: Pseudomononas Aeruginosa, Enterococcus faecalis -Currently on Meropenem 500 mg IV Q8h MALU day 5 and Ciprofloxacin 500mg PO Q12H day [address] Brown consulted- help appreciated. -Patient is s/p aortofemoral angiogram via right groin with selective catherization of left femoral artery 12/17/16. -Patient for possible femoral bypass with Dr. Brown. Surgery planning. - Continue Plavix 75 mg PO daily - Continue Aspirin 81 mg PO daily Imaging: Abdominal Angiography: CTA ABDOMEN PELVIS:1. Moderate calcific plaque throughout the abdominal aorta without stenosis. 2. Severe calcific plaqueat the origin of the celiac artery with severe stenosis of the celiac artery. There is poststenotic dilatation. 3. There is moderate stenosis of the origin of the superior mesenteric artery. 4. Both renal arteries have moderate stenosis at the origin. LEFT LOWER EXTREMITY CT ANGIOGRAM:1. Unremarkable common femoral artery. 2. Patent distal SFA stent. 3. Popliteal artery has moderate diffuse stenosis. 4. Left runoff shows patent anterior tibial artery. Posterior tibial artery and peroneal artery believed to be occluded. RIGHT LOWER EXTREMITY CTA:1. Common femoral artery is unremarkable 2. Moderate calcific plaque throughout the SFA with there is a moderate stenosis in the mid SFA. 3. Moderate stenosis of popliteal artery 4. Unremarkable anterior tibial artery. Posterior tibial artery and peroneal artery believed to be occluded. NONVASCULAR FINDINGS: Prostate measures 6.7 centimeter AP x 5.4 centimeter transverse with mass effect on the urinary bladder. On last visit: Arterial doppler: 1.) Occluded left posterior tibial artery. No flow detected throughout the vessel. 2.) Continuous monophasic waveforms, beginning at left superficial femoral artery level. Calcific plaques notted throughout bilateral lower extremities. Slightly increased velocities due to vessel narrowing. No evidence of arterial occlusions of bilateral extremity arteries above the knee. (see full report) s/p angiogram - aortofemoral angiogram via right groin, selective angiogram left femoral artery. pathway atherectomy. 40% proximal sfa occlusion and 100% mid and distal sfa occlusion (see full report). Status: Chronic (2) PVD (peripheral vascular disease) Assessment & Plan: Vascular surgeon Dr. Brown consulted ---> help appreciated. -Patient is s/p aortofemoral angiogram via right groin with selective catherization of left femoral artery 12/17/16. -Patient for possible Endovascular Stent placement with Dr. Brown. Surgery planning. - Continue Plavix 75 mg PO daily - Continue Aspirin 81 mg PO daily - awaiting leg bypass Status: Chronic (3) Bacteremia Assessment & Plan: ID consult placed- Dr. Galindo ---> help appreciated. Blood Cx positive for Corynebacterium on 12/11/16 X2. Continue 500mg Ciprofloxacin PO bid Continue 1gm Ampicillin IVPB Q6H Status: Acute (4) Congestive heart failure (CHF) Assessment & Plan: Cardio consult placed- Dr. Dobson- help appreciated. Consult placed for cardiac clearance prior to vascular procedure. - Myocardial Perfusion Scan showed: Inferolateral Reversible Ischemia -Per Dr. Dobson- Recommended cardiac catheterization prior to vascular surgery. - Patient transferred to [facility] for Cardiac Catheterization 12/20/16. - Hold home lasix 20 mg PO daily secondary to acute on chronic kidney injury - Continue Lopressor 12.5 mg PO BID - Continue Losartan 100 mg PO mcg PO daily - Continue Amlodipine 10 mg PO daily -CXR: No evidence of new infiltrate or consolidation in the lungs. No significant pleural effusion or pneumothorax apparent. Status: Chronic (5) Coronary artery disease Assessment & Plan: Cardio consult placed- Dr. Dobson- help appreciated. Consult placed for cardiac clearance prior to vascular procedure. 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 dobson, he will communicate with IR and General surgery regarding cardiac clearance Aspirin 81 mg PO daily Plavux 75 mg PO daily Crestor 2.5 mg PO HS Status: Chronic (6) Hypothyroidism Assessment & Plan: -Continue Synthroid 100 mcg po AM -TSH 6.33, Free T4 0.96 Status: Chronic (7) Diabetes mellitus Assessment & Plan: -HgbA1c 7.2 -Accuchecks ACHS -RISS -Lantus 10units HS - confirmed by pharmacy Status: Chronic (8) Hypercholesteremia Assessment & Plan: -LDL 125, HDL 24, Cholesterol 187, Triglycerides 208 -Crestor 2.5mg po hs Status: Chronic (9) Acute on chronic renal insufficiency Assessment & Plan: -Improving -BUN/CR: 7/0.7 - f/u labs this AM -Continue D5% Normal saline 75cc/hr IV -Nephrology, Dr. Carmona consulted. Recommends IV fluids prior to angio and close renal function follow-up post procedure -Renal US: Bilateral renal cysts, some of which are mildly complex containing calcifications and septations (see full report) -Per Dr. Camrona, may need kidney CT in future to evaluate complex cysts Status: Acute (10) Hypertension Assessment & Plan: -Hydralazine 10mg ivp q6 prn SBP > 160 -Losartan 50mg po daily -Metprolol 12.5mg po bid Status: Chronic (11) Iron deficiency anemia Assessment & Plan: -Feosol 300mg po bid Status: Chronic (12) Prophylactic measure Assessment & Plan: -Heparin 5000u sc q12 -Protonix 40mg po daily -SCD c/i -PT/OT -Heart healthy moderate consistent carb renal diet - Bedside commode -Palliative Care Consult- Full Code. -Plan to discuss goals of care with son with [employer], Eliana Escudero. Status: Acute <Annabel Galindo V - Last Filed: 12/24/16 06:34> Objective - Vital Signs/Intake and Output Vital Signs (last 24 hours): Temp Pulse Resp BP Pulse Ox 97.7 F 68 20 157/72 H 97 12/24/16 04:00 12/24/16 04:03 12/24/16 04:00 12/24/16 04:00 12/24/16 04:00 Intake and Output: 12/23/16 12/24/16 18:59 06:59 Intake Total 600 350 Output Total 500 Balance 100 350 - Medications Medications: Current Medications Amlodipine Besylate (Norvasc) 10 mg PO DAILY [facility] Last Admin: 12/23/16 11:00 Dose: 10 mg Aspirin (Aspirin Chewable) 81 mg PO DAILY [facility] Last Admin: 12/23/16 22:13 Dose: 81 mg Ciprofloxacin (Cipro) 500 mg PO BID [facility] Last Admin: 12/23/16 18:49 Dose: 500 mg Docusate Sodium (Colace) 100 mg PO BID [facility] Last Admin: 12/23/16 18:49 Dose: 100 mg Famotidine (Pepcid) 20 mg PO DAILY [facility] Last Admin: 12/23/16 11:00 Dose: 20 mg Ferrous Sulfate (Feosol Liq) 300 mg PO BID [facility] Last Admin: 12/23/16 18:49 Dose: 300 mg Hydralazine HCl (Apresoline) 10 mg IVP Q6H PRN PRN Reason: Systolic Blood Pressure Last Admin: 12/16/16 14:30 Dose: 10 mg Ampicillin 1 gm/ Sodium (Chloride) 100 mls @ 100 mls/hr IVPB Q6H [facility] Last Admin: 12/24/16 04:48 Dose: 100 mls/hr Dextrose/Sodium Chloride (Dextrose 5%/0.45% Ns 1000 Ml) 1,000 mls @ 50 mls/hr IV .Q20H [facility] Last Admin: 12/23/16 22:11 Dose: 50 mls/hr Insulin Aspart (Novolog) 0 unit SC [facility] PRN Reason: Protocol Last Admin: 12/23/16 22:11 Dose: Not Given Insulin Glargine (Lantus) 5 unit SC HS [facility] Last Admin: 12/23/16 22:10 Dose: Not Given Levothyroxine Sodium (Synthroid) 100 mcg PO DAILY@0630 [facility] Last Admin: 12/24/16 05:55 Dose: 100 mcg Losartan Potassium (Cozaar) 100 mg PO DAILY [facility] Last Admin: 12/23/16 11:00 Dose: 100 mg Metoprolol Tartrate (Lopressor) 12.5 mg PO 0800,1800 [facility] Last Admin: 12/23/16 18:50 Dose: 12.5 mg Rosuvastatin Calcium (Crestor) 2.5 mg PO HS [facility] Last Admin: 12/23/16 22:10 Dose: 2.5 mg Saccharomyces Boulardii (Florastor) 250 mg PO BID [facility] Last Admin: 12/23/16 18:49 Dose: 250 mg Ticagrelor (Brilinta) 90 mg PO BID [facility] Last Admin: 12/23/16 18:00 Dose: 90 mg Tramadol HCl (Ultram) 25 mg PO TID PRN PRN Reason: Pain, moderate (4-7) Last Admin: 12/16/16 10:17 Dose: 25 mg - Labs Labs: 12/23/16 19:58 12/23/16 19:58 PT 11.9 SECONDS (9.7-12.2) 12/16/16 13:51 INR 1.1 12/16/16 13:51 APTT 31 SECONDS (21-34) 12/16/16 13:51 Attending/Attestation - Attestation I have personally seen and examined this patient.: Yes I have fully participated in the care of the patient.: Yes I have reviewed all pertinent clinical information, including history, physical exam and plan: Yes Notes (Text): This is late computer entry fo 12/22/16. Patient seen, examined and case discussed with day-time international account manager. Patient has been refusing telemetry and IV line. Patient resting in bed. Discussed with Dr. Dobson, patient must continue Aspirin and Brilinta, has received 2 cardiac stents. Discussed with surgery, who are aware. Patient is for retrograde pedal angio with Dr. Brown for Saturday. Patient is currently on IV antibiotics repeat blood culture is negative. 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 Gaytan consulted. Podiatry plans to follow while patient is hospitalized. - Patient had TMA 10/17/[address] Gaytan. -Tramadol 25mg po tid prn pain Infectious Disease- Dr. Galindo- help appreciated. -Wound culture 12/12/16: Pseudomononas Aeruginosa, Enterococcus faecalis -Currently on Ampicillin 1 gram IV Q 6 hours (active since 12/20/16) and Ciprofloxacin 500mg PO Q12H (active since 12/15/16_ Vascular surgeon Dr. Brown consulted- help appreciated. -Patient is s/p aortofemoral angiogram via right groin with selective catherization of left femoral artery 12/17/16. -Patient for retrograde pedal angio with Dr. Brown. Surgery preop/intropa/ post per surgery. Per Cardio, patient is stable for angiogram. -Continue Brilinta 90 mg PO bid and Continue Aspirin 81 mg PO daily; discussed with between cardiology and surgery given patient has 2 stents placed Imaging: Abdominal Angiography: CTA ABDOMEN PELVIS:1. Moderate calcific plaque throughout the abdominal aorta without stenosis. 2. Severe calcific plaqueat the origin of the celiac artery with severe stenosis of the celiac artery. There is poststenotic dilatation. 3. There is moderate stenosis of the origin of the superior mesenteric artery. 4. Both renal arteries have moderate stenosis at the origin. LEFT LOWER EXTREMITY CT ANGIOGRAM:1. Unremarkable common femoral artery. 2. Patent distal SFA stent. 3. Popliteal artery has moderate diffuse stenosis. 4. Left runoff shows patent anterior tibial artery. Posterior tibial artery and peroneal artery believed to be occluded. RIGHT LOWER EXTREMITY CTA:1. Common femoral artery is unremarkable 2. Moderate calcific plaque throughout the SFA with there is a moderate stenosis in the mid SFA. 3. Moderate stenosis of popliteal artery 4. Unremarkable anterior tibial artery. Posterior tibial artery and peroneal artery believed to be occluded. NONVASCULAR FINDINGS: Prostate measures 6.7 centimeter AP x 5.4 centimeter transverse with mass effect on the urinary bladder. On last visit: Arterial doppler: 1.) Occluded left posterior tibial artery. No flow detected throughout the vessel. 2.) Continuous monophasic waveforms, beginning at left superficial femoral artery level. Calcific plaques notted throughout bilateral lower extremities. Slightly increased velocities due to vessel narrowing. No evidence of arterial occlusions of bilateral extremity arteries above the knee. (see full report) s/p angiogram - aortofemoral angiogram via right groin, selective angiogram left femoral artery. pathway atherectomy. 40% proximal sfa occlusion and 100% mid and distal sfa occlusion (see full report). Status: Chronic (2) PVD (peripheral vascular disease) Assessment & Plan: Vascular surgeon Dr. Brown consulted ---> help appreciated. -Patient is s/p aortofemoral angiogram via right groin with selective catherization of left femoral artery 12/17/16. -Patient for retrograde pedal angio with Dr. Brown on 12/24/16. Per cardio stable for angiogram tomorrow. - Continue Brilinta 90 mg PO BID and Continue Aspirin 81 mg PO daily--> patient has 2 cardiac stents - retrograde pedal angio 12/24/16 Status: Chronic (3) Bacteremia Assessment & Plan: ID consult placed- Dr. Galindo ---> help appreciated. Blood Cx positive for Corynebacterium on 12/11/16 X2. Blood culture (12/19/16): negative thus far Continue 500mg Ciprofloxacin PO bid Continue 1gm Ampicillin IVPB Q6H Florastor 250mg PO bid Status: Acute (4) Congestive heart failure (CHF) Assessment & Plan: Cardio consult placed- Dr. Dobson- help appreciated. Consult placed for cardiac clearance prior to vascular procedure. - Myocardial Perfusion Scan showed: Inferolateral Reversible Ischemia - Patient transferred to [facility] for Cardiac Catheterization 12/20/16. - s/p Catheterization: PCI LAD, Ramus branch - per Dr. Dobson - stable for angiogram - per Dr. Dobson Continue ASA/Brilinta. cannot be held due to PCI - Hold home lasix 20 mg PO daily secondary to acute on chronic kidney injury - Continue Lopressor 12.5 mg PO BID - Continue Losartan 100 mg PO mg PO daily - Continue Amlodipine 10 mg PO daily -Aspirin 81mg PO daily -Brilnta 90mg PO bid -CXR: No evidence of new infiltrate or consolidation in the lungs. No significant pleural effusion or pneumothorax apparent. Status: Chronic (5) Coronary artery disease Assessment & Plan: Cardio consult placed- Dr. Dobson- help appreciated. Consult placed for cardiac clearance prior to vascular procedure. 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 dobson, he will communicate with IR and General surgery regarding cardiac clearance -->stable for angiogram Aspirin 81 mg PO daily Brilinta 90mg PO bid Crestor 2.5 mg PO HS Status: Chronic (6) Hypothyroidism Assessment & Plan: -Continue Synthroid 100 mcg po AM -TSH 6.33, Free T4 0.96 Status: Chronic (7) Diabetes mellitus Assessment & Plan: -HgbA1c 7.2 -Accuchecks ACHS -RISS -Lantus 5units HS (1/2 dose prior to procedure) Status: Chronic (8) Hypercholesteremia Assessment & Plan: -LDL 125, HDL 24, Cholesterol 187, Triglycerides 208 -Crestor 2.5mg po hs Status: Chronic (9) Acute on chronic renal insufficiency Assessment & Plan: -Improving -BUN/CR -Continue D5% Normal saline 75cc/hr IV -Nephrology, Dr. Carmona consulted-->help appreciated -Renal US: Bilateral renal cysts, some of which are mildly complex containing calcifications and septations (see full report) -Per Dr. Carmona, may need kidney CT in future to evaluate complex cysts Status: Acute (10) Hypertension Assessment & Plan: -Hydralazine 10mg ivp q6 prn SBP > 160 -Losartan 50mg po daily -Metpprolol 12.5mg po bid -Norvasc 10mg PO daily Status: Chronic (11) Iron deficiency anemia Assessment & Plan: -Feosol 300mg po bid Status: Chronic (12) Prophylactic measure Assessment & Plan: -held anticoagulation Heparin 5000u sc q12 -Pepcid 20mg PO daily -SCD c/i -PT/OT -Heart healthy moderate consistent carb renal diet - Bedside commode -Palliative Care Consult- Full Code. Status: Acute
[2016-12-22] MEDS: AMPicillin 1 GM in Sodium Chloride 0.9% 100 ML IVPB SCH ×4 (04:40→20:54)
[2016-12-22] MEDS: Levothyroxine 100 MCG TAB PO SCH (05:41)
[2016-12-22] MEDS: (Novolog) Insulin Aspart, Recombinant 100 u/ml 10 ml vial SC SCH ×4 (08:30→22:30)
--- NOTE | 2016-12-22 09:43 | CP.PCM.PN ---
Subjective - Date & Time of Evaluation Date of Evaluation: 12/22/16 Time of Evaluation: 09:40 - Subjective Subjective: output 1200cc afebrile bp stable no new chems comfortable in bed less foot pain No headache no sob,cough no chest pain no abd pain nausea vomiting diarrhea no dysuria Objective - Vital Signs/Intake and Output Vital Signs (last 24 hours): Temp Pulse Resp BP Pulse Ox 96.9 F L 62 20 147/70 96 12/22/16 09:13 12/22/16 09:13 12/22/16 09:13 12/22/16 09:13 12/22/16 09:13 Intake and Output: 12/22/16 12/22/16 06:59 18:59 Intake Total 320 Output Total 700 Balance -380 - Medications Medications: Current Medications Amlodipine Besylate (Norvasc) 10 mg PO DAILY [facility] Last Admin: 12/21/16 11:00 Dose: Not Given Aspirin (Aspirin Chewable) 81 mg PO DAILY [facility] Last Admin: 12/18/16 09:52 Dose: 81 mg Ciprofloxacin (Cipro) 500 mg PO BID [facility] Last Admin: 12/21/16 17:56 Dose: 500 mg Clopidogrel Bisulfate (Plavix) 75 mg PO DAILY [facility] Last Admin: 12/18/16 09:52 Dose: 75 mg Docusate Sodium (Colace) 100 mg PO BID [facility] Last Admin: 12/21/16 17:56 Dose: 100 mg Famotidine (Pepcid) 20 mg PO DAILY [facility] Last Admin: 12/21/16 11:00 Dose: Not Given Ferrous Sulfate (Feosol Liq) 300 mg PO BID [facility] Last Admin: 12/21/16 17:56 Dose: 300 mg Hydralazine HCl (Apresoline) 10 mg IVP Q6H PRN PRN Reason: Systolic Blood Pressure Last Admin: 12/16/16 14:30 Dose: 10 mg Ampicillin 1 gm/ Sodium (Chloride) 100 mls @ 100 mls/hr IVPB Q6H [facility] Last Admin: 12/22/16 04:40 Dose: Not Given Insulin Aspart (Novolog) 0 unit SC [facility] PRN Reason: Protocol Last Admin: 12/22/16 08:30 Dose: Not Given Insulin Glargine (Lantus) 5 unit SC [facility] Last Admin: 12/21/16 22:01 Dose: 5 u Levothyroxine Sodium (Synthroid) 100 mcg PO DAILY@0630 [facility] Last Admin: 12/22/16 05:41 Dose: Not Given Losartan Potassium (Cozaar) 100 mg PO DAILY [facility] Last Admin: 12/21/16 11:00 Dose: Not Given Metoprolol Tartrate (Lopressor) 12.5 mg PO 0800,1800 [facility] Last Admin: 12/22/16 08:43 Dose: Not Given Rosuvastatin Calcium (Crestor) 2.5 mg PO HS [facility] Last Admin: 12/21/16 21:49 Dose: 2.5 mg Saccharomyces Boulardii (Florastor) 250 mg PO BID [facility] Last Admin: 12/21/16 17:56 Dose: 250 mg Ticagrelor (Brilinta) 90 mg PO BID [facility] Last Admin: 12/21/16 17:56 Dose: 90 mg Tramadol HCl (Ultram) 25 mg PO TID PRN PRN Reason: Pain, moderate (4-7) Last Admin: 12/16/16 10:17 Dose: 25 mg - Labs Labs: 12/21/16 13:43 12/21/16 13:43 PT 11.9 SECONDS (9.7-12.2) 12/16/16 13:51 INR 1.1 12/16/16 13:51 APTT 31 SECONDS (21-34) 12/16/16 13:51 - Constitutional Appears: No Acute Distress - ENT Exam Additional comments: no jvd - Respiratory Exam Respiratory Exam: Clear to Ausculation Bilateral - Cardiovascular Exam Cardiovascular Exam: REGULAR RHYTHM - GI/Abdominal Exam GI & Abdominal Exam: Soft. absent: Distended, Tenderness - Extremities Exam Additional comments: left foot bandaged - Back Exam Back Exam: absent: CVA tenderness (L), CVA tenderness (R) - Neurological Exam Neurological Exam: Alert, Awake - Skin Skin Exam: Dry Assessment and Plan (1) Status post transmetatarsal amputation of left foot Status: Acute (2) Coronary artery disease Status: Chronic (3) PVD (peripheral vascular disease) Status: Chronic (4) Acute renal failure Status: Acute - Assessment and Plan (Free Text) Plan: so far stable from renal viewpont to repeat chems
--- NOTE | 2016-12-22 09:55 | CP.PCM.PN ---
Subjective - Date & Time of Evaluation Date of Evaluation: 12/22/16 Time of Evaluation: 09:52 - Subjective Subjective: Surgery: Dr. Brown Pt seen and examined. No acute events overnight. Will plan for angio on Saturday d/w attending Yousuf PGY2 Objective - Vital Signs/Intake and Output Vital Signs (last 24 hours): Temp Pulse Resp BP Pulse Ox 96.9 F L 62 20 147/70 96 12/22/16 09:13 12/22/16 09:13 12/22/16 09:13 12/22/16 09:13 12/22/16 09:13 Intake and Output: 12/22/16 12/22/16 06:59 18:59 Intake Total 320 Output Total 700 Balance -380 - Medications Medications: Current Medications Amlodipine Besylate (Norvasc) 10 mg PO DAILY [facility] Last Admin: 12/21/16 11:00 Dose: Not Given Aspirin (Aspirin Chewable) 81 mg PO DAILY [facility] Last Admin: 12/18/16 09:52 Dose: 81 mg Ciprofloxacin (Cipro) 500 mg PO BID [facility] Last Admin: 12/21/16 17:56 Dose: 500 mg Clopidogrel Bisulfate (Plavix) 75 mg PO DAILY [facility] Last Admin: 12/18/16 09:52 Dose: 75 mg Docusate Sodium (Colace) 100 mg PO BID [facility] Last Admin: 12/21/16 17:56 Dose: 100 mg Famotidine (Pepcid) 20 mg PO DAILY [facility] Last Admin: 12/21/16 11:00 Dose: Not Given Ferrous Sulfate (Feosol Liq) 300 mg PO BID [facility] Last Admin: 12/21/16 17:56 Dose: 300 mg Hydralazine HCl (Apresoline) 10 mg IVP Q6H PRN PRN Reason: Systolic Blood Pressure Last Admin: 12/16/16 14:30 Dose: 10 mg Ampicillin 1 gm/ Sodium (Chloride) 100 mls @ 100 mls/hr IVPB Q6H [facility] Last Admin: 12/22/16 04:40 Dose: Not Given Insulin Aspart (Novolog) 0 unit SC ACHS [facility] PRN Reason: Protocol Last Admin: 12/22/16 08:30 Dose: Not Given Insulin Glargine (Lantus) 5 unit SC HS [facility] Last Admin: 12/21/16 22:01 Dose: 5 u Levothyroxine Sodium (Synthroid) 100 mcg PO DAILY@0630 [facility] Last Admin: 12/22/16 05:41 Dose: Not Given Losartan Potassium (Cozaar) 100 mg PO DAILY [facility] Last Admin: 12/21/16 11:00 Dose: Not Given Metoprolol Tartrate (Lopressor) 12.5 mg PO 0800,1800 [facility] Last Admin: 12/22/16 08:43 Dose: Not Given Rosuvastatin Calcium (Crestor) 2.5 mg PO HS [facility] Last Admin: 12/21/16 21:49 Dose: 2.5 mg Saccharomyces Boulardii (Florastor) 250 mg PO BID [facility] Last Admin: 12/21/16 17:56 Dose: 250 mg Ticagrelor (Brilinta) 90 mg PO BID [facility] Last Admin: 12/21/16 17:56 Dose: 90 mg Tramadol HCl (Ultram) 25 mg PO TID PRN PRN Reason: Pain, moderate (4-7) Last Admin: 12/16/16 10:17 Dose: 25 mg - Labs Labs: 12/21/16 13:43 12/21/16 13:43 PT 11.9 SECONDS (9.7-12.2) 12/16/16 13:51 INR 1.1 12/16/16 13:51 APTT 31 SECONDS (21-34) 12/16/16 13:51
[2016-12-22] MEDS: Saccharomyces Boulardi 250 mg Cap PO SCH ×2 (10:59→18:39)
[2016-12-22] MEDS: Ferrous Sulfate 300 mg/5 mL Liq UD PO SCH ×2 (10:59→18:36)
--- NOTE | 2016-12-22 11:14 | CP.PCM.PN ---
Subjective - Date & Time of Evaluation Date of Evaluation: 12/22/16 Time of Evaluation: 09:25 - Subjective Subjective: 81 y/o male was seen and evaluated at bedside for follow up of left foot TMA site non-healing wound with attending Dr. Gaytan. Patient was resting comfortably in bed. States he has mild pain to LLE. Dressing is c/d/i . Patient denies any symptoms of N/V/F/SOB/chills and chest pains. No acute events overnight. Denies other pedal complaints. Objective - Vital Signs/Intake and Output Vital Signs (last 24 hours): Temp Pulse Resp BP Pulse Ox 96.9 F L 62 20 147/70 96 12/22/16 09:13 12/22/16 09:13 12/22/16 09:13 12/22/16 09:13 12/22/16 09:13 Intake and Output: 12/22/16 12/22/16 06:59 18:59 Intake Total 320 Output Total 700 Balance -380 - Medications Medications: Current Medications Amlodipine Besylate (Norvasc) 10 mg PO DAILY [facility] Last Admin: 12/22/16 10:59 Dose: 10 mg Aspirin (Aspirin Chewable) 81 mg PO DAILY [facility] Last Admin: 12/18/16 09:52 Dose: 81 mg Ciprofloxacin (Cipro) 500 mg PO BID [facility] Last Admin: 12/22/16 10:59 Dose: 500 mg Clopidogrel Bisulfate (Plavix) 75 mg PO DAILY [facility] Last Admin: 12/18/16 09:52 Dose: 75 mg Docusate Sodium (Colace) 100 mg PO BID [facility] Last Admin: 12/22/16 10:59 Dose: 100 mg Famotidine (Pepcid) 20 mg PO DAILY [facility] Last Admin: 12/22/16 10:59 Dose: 20 mg Ferrous Sulfate (Feosol Liq) 300 mg PO BID [facility] Last Admin: 12/22/16 10:59 Dose: 300 mg Hydralazine HCl (Apresoline) 10 mg IVP Q6H PRN PRN Reason: Systolic Blood Pressure Last Admin: 12/16/16 14:30 Dose: 10 mg Ampicillin 1 gm/ Sodium (Chloride) 100 mls @ 100 mls/hr IVPB Q6H [facility] Last Admin: 12/22/16 04:40 Dose: Not Given Insulin Aspart (Novolog) 0 unit SC ACHS [facility] PRN Reason: Protocol Last Admin: 12/22/16 08:30 Dose: Not Given Insulin Glargine (Lantus) 5 unit SC HS [facility] Last Admin: 12/21/16 22:01 Dose: 5 u Levothyroxine Sodium (Synthroid) 100 mcg PO DAILY@0630 [facility] Last Admin: 12/22/16 05:41 Dose: Not Given Losartan Potassium (Cozaar) 100 mg PO DAILY [facility] Last Admin: 12/22/16 10:59 Dose: 100 mg Metoprolol Tartrate (Lopressor) 12.5 mg PO 0800,1800 [facility] Last Admin: 12/22/16 09:00 Dose: 12.5 mg Rosuvastatin Calcium (Crestor) 2.5 mg PO HS [facility] Last Admin: 12/21/16 21:49 Dose: 2.5 mg Saccharomyces Boulardii (Florastor) 250 mg PO BID [facility] Last Admin: 12/22/16 10:59 Dose: 250 mg Ticagrelor (Brilinta) 90 mg PO BID [facility] Last Admin: 12/22/16 10:59 Dose: 90 mg Tramadol HCl (Ultram) 25 mg PO TID PRN PRN Reason: Pain, moderate (4-7) Last Admin: 12/16/16 10:17 Dose: 25 mg - Labs Labs: 12/21/16 13:43 12/21/16 13:43 PT 11.9 SECONDS (9.7-12.2) 12/16/16 13:51 INR 1.1 12/16/16 13:51 APTT 31 SECONDS (21-34) 12/16/16 13:51 - Constitutional Appears: Well, Non-toxic, No Acute Distress - Extremities Exam Additional comments: LLE exam: Vascular: DP and PT non-palpable, mild foot edema noted, normal skin temp, CFT < 3 secs to plantar and dorsal flaps. Derm: non-healing TMA site, mild serous drainage noted, wound bed is fibrotic, probe to bone, eschar noted at the TMA site. Temperature of plantar and dorsal flaps warm to touch. Ortho: No pain with palpation to the TMA site Neuro: Diminished sensation. - Neurological Exam Neurological Exam: Alert, Awake, Oriented x3 - Psychiatric Exam Psychiatric exam: Normal Affect, Normal Mood Assessment and Plan - Assessment and Plan (Free Text) Assessment: 81 y/o male patient with non-healing left foot TMA site secondary to PVD Plan: Patient seen and evaluated at bedside with attending Dr. Gaytan Charts and vitals were reviewed. TMA site cleansed with sterile saline, dressed with betadine, DSD, kerlix. Plan for bypass per Dr. Brown noted. Podiatry will continue to follow while patient remains in house
--- NOTE | 2016-12-22 11:55 | CP.PCM.PN ---
Subjective - Date & Time of Evaluation Date of Evaluation: 12/22/16 Time of Evaluation: 11:54 - Subjective Subjective: for retrograde pedal angio saturday Objective - Vital Signs/Intake and Output Vital Signs (last 24 hours): Temp Pulse Resp BP Pulse Ox 96.9 F L 62 20 147/70 96 12/22/16 09:13 12/22/16 09:13 12/22/16 09:13 12/22/16 09:13 12/22/16 09:13 Intake and Output: 12/22/16 12/22/16 06:59 18:59 Intake Total 320 Output Total 700 Balance -380 - Medications Medications: Current Medications Amlodipine Besylate (Norvasc) 10 mg PO DAILY [facility] Last Admin: 12/22/16 10:59 Dose: 10 mg Aspirin (Aspirin Chewable) 81 mg PO DAILY [facility] Last Admin: 12/18/16 09:52 Dose: 81 mg Ciprofloxacin (Cipro) 500 mg PO BID [facility] Last Admin: 12/22/16 10:59 Dose: 500 mg Clopidogrel Bisulfate (Plavix) 75 mg PO DAILY [facility] Last Admin: 12/18/16 09:52 Dose: 75 mg Docusate Sodium (Colace) 100 mg PO BID [facility] Last Admin: 12/22/16 10:59 Dose: 100 mg Famotidine (Pepcid) 20 mg PO DAILY [facility] Last Admin: 12/22/16 10:59 Dose: 20 mg Ferrous Sulfate (Feosol Liq) 300 mg PO BID [facility] Last Admin: 12/22/16 10:59 Dose: 300 mg Hydralazine HCl (Apresoline) 10 mg IVP Q6H PRN PRN Reason: Systolic Blood Pressure Last Admin: 12/16/16 14:30 Dose: 10 mg Ampicillin 1 gm/ Sodium (Chloride) 100 mls @ 100 mls/hr IVPB Q6H [facility] Last Admin: 12/22/16 11:27 Dose: Not Given Insulin Aspart (Novolog) 0 unit SC ACHS [facility] PRN Reason: Protocol Last Admin: 12/22/16 08:30 Dose: Not Given Insulin Glargine (Lantus) 5 unit SC HS [facility] Last Admin: 12/21/16 22:01 Dose: 5 u Levothyroxine Sodium (Synthroid) 100 mcg PO DAILY@0630 [facility] Last Admin: 12/22/16 05:41 Dose: Not Given Losartan Potassium (Cozaar) 100 mg PO DAILY [facility] Last Admin: 12/22/16 10:59 Dose: 100 mg Metoprolol Tartrate (Lopressor) 12.5 mg PO 0800,1800 [facility] Last Admin: 12/22/16 09:00 Dose: 12.5 mg Rosuvastatin Calcium (Crestor) 2.5 mg PO HS [facility] Last Admin: 12/21/16 21:49 Dose: 2.5 mg Saccharomyces Boulardii (Florastor) 250 mg PO BID [facility] Last Admin: 12/22/16 10:59 Dose: 250 mg Ticagrelor (Brilinta) 90 mg PO BID [facility] Last Admin: 12/22/16 10:59 Dose: 90 mg Tramadol HCl (Ultram) 25 mg PO TID PRN PRN Reason: Pain, moderate (4-7) Last Admin: 12/16/16 10:17 Dose: 25 mg - Labs Labs: 12/21/16 13:43 12/21/16 13:43 PT 11.9 SECONDS (9.7-12.2) 12/16/16 13:51 INR 1.1 12/16/16 13:51 APTT 31 SECONDS (21-34) 12/16/16 13:51
[2016-12-22 12:18] LABS: BASO # 0.1 K/uL (0.0-0.2); BASO % 0.9 % (0.0-2.0); EOS # 0.5 K/uL (0.0-0.7); EOS % 5.9 % (0.0-4.0); HEMATOCRIT 35.8 % (35.0-51.0); LYMPH # 2.1 K/uL (1.0-4.3); LYMPH % 27.2 % (20.0-40.0); MEAN CORPUSCULAR HEMOGLOBIN 23.9 pg (27.0-31.0); MEAN CORPUSCULAR HGB CONC 31.5 g/dL (33.0-37.0); MEAN PLATELET VOLUME 8.4 fL (7.2-11.7); MONO # 1.1 K/uL (0.0-0.8); MONO % 14.1 % (0.0-10.0); RED CELL DISTRIBUTION WIDTH 19.7 % (11.5-14.5); WHITE BLOOD COUNT 7.7 K/uL (4.8-10.8)
[2016-12-22 12:52] LABS: CHLORIDE 100 mmol/L (98-107); SODIUM 132 mmol/L (132-148)
[2016-12-22 12:54] LABS: BILIRUBIN,TOTAL 0.6 mg/dL (0.2-1.3); GFR AFRICAN-AMERICAN > 60
[2016-12-22 12:55] LABS: ALB/GLOB RATIO 0.8 (1.0-2.1); ALKALINE PHOSPHATASE 140 U/L (38-126); ALT/SGPT 24 U/L (21-72); AST/SGOT 23 U/L (17-59); BLOOD UREA NITROGEN 11 mg/dL (9-20); CARBON DIOXIDE 22 mmol/L (22-30); GLUCOSE,RANDOM 144 mg/dL (75-110); PHOSPHOROUS 3.4 mg/dL (2.5-4.5); TOTAL PROTEIN 7.1 g/dL (6.3-8.3)
[2016-12-22 12:56] LABS: CALCIUM 8.9 mg/dl (8.6-10.4); MAGNESIUM 1.6 mg/dL (1.6-2.3)
--- NOTE | 2016-12-22 13:18 | CP.PCM.PN ---
Subjective - Date & Time of Evaluation Date of Evaluation: 12/22/16 Time of Evaluation: 12:45 - Subjective Subjective: Patient has no chest pain or dyspnea Objective - Vital Signs/Intake and Output Vital Signs (last 24 hours): Temp Pulse Resp BP Pulse Ox 96.9 F L 62 20 147/70 96 12/22/16 09:13 12/22/16 09:13 12/22/16 09:13 12/22/16 09:13 12/22/16 09:13 Intake and Output: 12/22/16 12/22/16 06:59 18:59 Intake Total 320 Output Total 700 Balance -380 - Medications Medications: Current Medications Amlodipine Besylate (Norvasc) 10 mg PO DAILY [facility] Last Admin: 12/22/16 10:59 Dose: 10 mg Aspirin (Aspirin Chewable) 81 mg PO DAILY [facility] Last Admin: 12/18/16 09:52 Dose: 81 mg Ciprofloxacin (Cipro) 500 mg PO BID [facility] Last Admin: 12/22/16 10:59 Dose: 500 mg Docusate Sodium (Colace) 100 mg PO BID [facility] Last Admin: 12/22/16 10:59 Dose: 100 mg Famotidine (Pepcid) 20 mg PO DAILY [facility] Last Admin: 12/22/16 10:59 Dose: 20 mg Ferrous Sulfate (Feosol Liq) 300 mg PO BID [facility] Last Admin: 12/22/16 10:59 Dose: 300 mg Hydralazine HCl (Apresoline) 10 mg IVP Q6H PRN PRN Reason: Systolic Blood Pressure Last Admin: 12/16/16 14:30 Dose: 10 mg Ampicillin 1 gm/ Sodium (Chloride) 100 mls @ 100 mls/hr IVPB Q6H [facility] Last Admin: 12/22/16 11:27 Dose: Not Given Insulin Aspart (Novolog) 0 unit SC ACHS [facility] PRN Reason: Protocol Last Admin: 12/22/16 12:30 Dose: Not Given Insulin Glargine (Lantus) 5 unit SC HS [facility] Last Admin: 12/21/16 22:01 Dose: 5 u Levothyroxine Sodium (Synthroid) 100 mcg PO DAILY@0630 [facility] Last Admin: 12/22/16 05:41 Dose: Not Given Losartan Potassium (Cozaar) 100 mg PO DAILY [facility] Last Admin: 06/24/17 10:59 Dose: 100 mg Metoprolol Tartrate (Lopressor) 12.5 mg PO 0800,1800 [facility] Last Admin: 12/22/16 09:00 Dose: 12.5 mg Rosuvastatin Calcium (Crestor) 2.5 mg PO HS [facility] Last Admin: 12/21/16 21:49 Dose: 2.5 mg Saccharomyces Boulardii (Florastor) 250 mg PO BID [facility] Last Admin: 12/22/16 10:59 Dose: 250 mg Ticagrelor (Brilinta) 90 mg PO BID [facility] Last Admin: 12/22/16 10:59 Dose: 90 mg Tramadol HCl (Ultram) 25 mg PO TID PRN PRN Reason: Pain, moderate (4-7) Last Admin: 12/16/16 10:17 Dose: 25 mg - Labs Labs: 12/22/16 12:11 12/22/16 12:11 PT 11.9 SECONDS (9.7-12.2) 12/16/16 13:51 INR 1.1 12/16/16 13:51 APTT 31 SECONDS (21-34) 12/16/16 13:51 - Constitutional Appears: Non-toxic - Head Exam Head Exam: NORMAL INSPECTION - Eye Exam Eye Exam: Normal appearance - ENT Exam ENT Exam: Mucous Membranes Moist - Neck Exam Neck Exam: Full ROM - Respiratory Exam Respiratory Exam: NORMAL BREATHING PATTERN - Cardiovascular Exam Cardiovascular Exam: REGULAR RHYTHM - GI/Abdominal Exam GI & Abdominal Exam: Normal Bowel Sounds - Rectal Exam Rectal Exam: Deferred - Extremities Exam Extremities Exam: absent: Pedal Edema - Back Exam Back Exam: NORMAL INSPECTION - Neurological Exam Neurological Exam: Alert - Psychiatric Exam Psychiatric exam: Normal Affect - Skin Skin Exam: Normal Color Assessment and Plan (1) Coronary artery disease Assessment & Plan: s.p PCI LAD/ramus. Continue ASA/Brilinta. cannot be held due to PCI . Status: Chronic (2) PVD (peripheral vascular disease) Assessment & Plan: for pedal angiogram Status: Chronic (3) Pre-operative cardiovascular examination Assessment & Plan: stable for angiogram Status: Acute (4) Hypertension Status: Chronic
[2016-12-22] MEDS: Rosuvastatin Calcium 2.5 mg Tab PO SCH (22:37)
[2016-12-22] MEDS: (Lantus) Insulin Glargine, Recombinant SC SCH (22:38)
[2016-12-23] MEDS: AMPicillin 1 GM in Sodium Chloride 0.9% 100 ML IVPB SCH ×5 (00:21→22:10)
--- NOTE | 2016-12-23 04:02 | CP.PCM.PN ---
<Vanessa Hutson - Last Filed: 12/23/16 03:58> Subjective - Date & Time of Evaluation Date of Evaluation: 12/23/16 Time of Evaluation: 00:00 - Subjective Subjective: Medicine Note (PGY 1) : Dr. Galindo's service Patient was seen and examined at bedside. Patient was better oriented as son was in the room. Patient agreed to allow the nurse to place an IV. Patient denied chest pain, shortness of breath, nausea, vomiting, diarrhea, or constipation. Patient denied tenderness to his left foot. Objective - Vital Signs/Intake and Output Vital Signs (last 24 hours): Temp Pulse Resp BP Pulse Ox 97.2 F L 78 20 115/53 L 99 12/22/16 23:20 12/22/16 23:20 12/22/16 23:20 12/22/16 23:20 12/22/16 23:20 Intake and Output: 12/22/16 12/23/16 18:59 06:59 Intake Total 500 420 Output Total 400 450 Balance 100 -30 - Medications Medications: Current Medications Amlodipine Besylate (Norvasc) 10 mg PO DAILY [facility] Last Admin: 12/22/16 10:59 Dose: 10 mg Aspirin (Aspirin Chewable) 81 mg PO DAILY [facility] Last Admin: 12/18/16 09:52 Dose: 81 mg Ciprofloxacin (Cipro) 500 mg PO BID [facility] Last Admin: 12/22/16 18:36 Dose: 500 mg Docusate Sodium (Colace) 100 mg PO BID [facility] Last Admin: 12/22/16 18:36 Dose: 100 mg Famotidine (Pepcid) 20 mg PO DAILY [facility] Last Admin: 12/22/16 10:59 Dose: 20 mg Ferrous Sulfate (Feosol Liq) 300 mg PO BID [facility] Last Admin: 12/22/16 18:36 Dose: 300 mg Hydralazine HCl (Apresoline) 10 mg IVP Q6H PRN PRN Reason: Systolic Blood Pressure Last Admin: 12/16/16 14:30 Dose: 10 mg Ampicillin 1 gm/ Sodium (Chloride) 100 mls @ 100 mls/hr IVPB Q6H [facility] Last Admin: 12/23/16 00:21 Dose: 100 mls/hr Insulin Aspart (Novolog) 0 unit SC ACHS [facility] PRN Reason: Protocol Last Admin: 12/22/16 22:30 Dose: Not Given Insulin Glargine (Lantus) 5 unit SC [facility] Last Admin: 12/22/16 22:38 Dose: 5 u Levothyroxine Sodium (Synthroid) 100 mcg PO DAILY@0630 [facility] Last Admin: 12/22/16 05:41 Dose: Not Given Losartan Potassium (Cozaar) 100 mg PO DAILY [facility] Last Admin: 12/22/16 10:59 Dose: 100 mg Metoprolol Tartrate (Lopressor) 12.5 mg PO 0800,1800 [facility] Last Admin: 12/22/16 18:36 Dose: 12.5 mg Rosuvastatin Calcium (Crestor) 2.5 mg PO HS [facility] Last Admin: 12/22/16 22:37 Dose: 2.5 mg Saccharomyces Boulardii (Florastor) 250 mg PO BID [facility] Last Admin: 12/22/16 18:39 Dose: 250 mg Ticagrelor (Brilinta) 90 mg PO BID [facility] Last Admin: 12/22/16 18:36 Dose: 90 mg Tramadol HCl (Ultram) 25 mg PO TID PRN PRN Reason: Pain, moderate (4-7) Last Admin: 12/16/16 10:17 Dose: 25 mg - Labs Labs: 12/22/16 12:11 12/22/16 12:11 PT 11.9 SECONDS (9.7-12.2) 12/16/16 13:51 INR 1.1 12/16/16 13:51 APTT 31 SECONDS (21-34) 12/16/16 13:51 - Constitutional Appears: No Acute Distress - Head Exam Head Exam: NORMAL INSPECTION, NORMOCEPHALIC - Eye Exam Eye Exam: EOMI, PERRL Pupil Exam: NORMAL ACCOMODATION - Respiratory Exam Respiratory Exam: Clear to Ausculation Bilateral, NORMAL BREATHING PATTERN. absent: Rales, Rhonchi, Wheezes, Stridor - Cardiovascular Exam Cardiovascular Exam: REGULAR RHYTHM, RRR, +S1, +S2. absent: JVD - GI/Abdominal Exam GI & Abdominal Exam: Soft, Normal Bowel Sounds. absent: Guarding, Tenderness, Rebound - Extremities Exam Extremities Exam: absent: Calf Tenderness, Pedal Edema, Tenderness Additional comments: non-healing MTA - Neurological Exam Neurological Exam: Alert, Awake. 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 Gaytan consulted. Podiatry plans to follow while patient is hospitalized. - Patient had TMA 10/17/[address] Gaytan. -Tramadol 25mg po tid prn pain Infectious Disease- Dr. Galindo- help appreciated. -Wound culture 12/12/16: Pseudomononas Aeruginosa, Enterococcus faecalis -Currently on Meropenem 500 mg IV Q8h MALU day 5 and Ciprofloxacin 500mg PO Q12H day [address] Brown consulted- help appreciated. -Patient is s/p aortofemoral angiogram via right groin with selective catherization of left femoral artery 12/17/16. -Patient for possible femoral bypass with Dr. Brown. Surgery planning. - Continue Plavix 75 mg PO daily - Continue Aspirin 81 mg PO daily Imaging: Abdominal Angiography: CTA ABDOMEN PELVIS:1. Moderate calcific plaque throughout the abdominal aorta without stenosis. 2. Severe calcific plaqueat the origin of the celiac artery with severe stenosis of the celiac artery. There is poststenotic dilatation. 3. There is moderate stenosis of the origin of the superior mesenteric artery. 4. Both renal arteries have moderate stenosis at the origin. LEFT LOWER EXTREMITY CT ANGIOGRAM:1. Unremarkable common femoral artery. 2. Patent distal SFA stent. 3. Popliteal artery has moderate diffuse stenosis. 4. Left runoff shows patent anterior tibial artery. Posterior tibial artery and peroneal artery believed to be occluded. RIGHT LOWER EXTREMITY CTA:1. Common femoral artery is unremarkable 2. Moderate calcific plaque throughout the SFA with there is a moderate stenosis in the mid SFA. 3. Moderate stenosis of popliteal artery 4. Unremarkable anterior tibial artery. Posterior tibial artery and peroneal artery believed to be occluded. NONVASCULAR FINDINGS: Prostate measures 6.7 centimeter AP x 5.4 centimeter transverse with mass effect on the urinary bladder. On last visit: Arterial doppler: 1.) Occluded left posterior tibial artery. No flow detected throughout the vessel. 2.) Continuous monophasic waveforms, beginning at left superficial femoral artery level. Calcific plaques notted throughout bilateral lower extremities. Slightly increased velocities due to vessel narrowing. No evidence of arterial occlusions of bilateral extremity arteries above the knee. (see full report) s/p angiogram - aortofemoral angiogram via right groin, selective angiogram left femoral artery. pathway atherectomy. 40% proximal sfa occlusion and 100% mid and distal sfa occlusion (see full report). Status: Chronic (2) PVD (peripheral vascular disease) Assessment & Plan: Vascular surgeon Dr. Brown consulted ---> help appreciated. -Patient is s/p aortofemoral angiogram via right groin with selective catherization of left femoral artery 12/17/16. -Patient for possible Endovascular Stent placement with Dr. Brown. Surgery planning. - Continue Plavix 75 mg PO daily - Continue Aspirin 81 mg PO daily - Leg bypass saturday12/24/16 Status: Chronic (3) Bacteremia Assessment & Plan: ID consult placed- Dr. Galindo ---> help appreciated. Blood Cx positive for Corynebacterium on 12/11/16 X2. Continue 500mg Ciprofloxacin PO bid Continue 1gm Ampicillin IVPB Q6H Status: Acute (4) Congestive heart failure (CHF) Assessment & Plan: Cardio consult placed- Dr. Dobson- help appreciated. Consult placed for cardiac clearance prior to vascular procedure. - Myocardial Perfusion Scan showed: Inferolateral Reversible Ischemia - Patient transferred to [facility] for Cardiac Catheterization 12/20/16. - s/p Catheterization: PCI LAD, Ramus branch - per Dr. Dobson - stable for angiogram - per Dr. Dobson Continue ASA/Brilinta. cannot be held due to PCI - Hold home lasix 20 mg PO daily secondary to acute on chronic kidney injury - Continue Lopressor 12.5 mg PO BID - Continue Losartan 100 mg PO mcg PO daily - Continue Amlodipine 10 mg PO daily -CXR: No evidence of new infiltrate or consolidation in the lungs. No significant pleural effusion or pneumothorax apparent. Status: Chronic (5) Coronary artery disease Assessment & Plan: Cardio consult placed- Dr. Dobson- help appreciated. Consult placed for cardiac clearance prior to vascular procedure. Cardiac catherization performed on 12/20/16 at [facility], with initial result stating Stent in the LAD (Double Vessels disease) As per conversation with Dr. dobson, he will communicate with IR and General surgery regarding cardiac clearance Aspirin 81 mg PO daily Plavix 75 mg PO daily Crestor 2.5 mg PO HS Status: Chronic (6) Hypothyroidism Assessment & Plan: -Continue Synthroid 100 mcg po AM -TSH 6.33, Free T4 0.96 Status: Chronic (7) Diabetes mellitus Assessment & Plan: -HgbA1c 7.2 -Accuchecks ACHS -RISS -Lantus 10units HS - confirmed by pharmacy Status: Chronic (8) Hypercholesteremia Assessment & Plan: -LDL 125, HDL 24, Cholesterol 187, Triglycerides 208 -Crestor 2.5mg po hs Status: Chronic (9) Acute on chronic renal insufficiency Assessment & Plan: -Improving -BUN/CR: 11/1.0- f/u labs this AM -Continue D5% Normal saline 75cc/hr IV -Nephrology, Dr. Carmona consulted. Recommends IV fluids prior to angio and close renal function follow-up post procedure -Renal US: Bilateral renal cysts, some of which are mildly complex containing calcifications and septations (see full report) -Per Dr. Carmona, may need kidney CT in future to evaluate complex cysts Status: Acute (10) Hypertension Assessment & Plan: -Hydralazine 10mg ivp q6 prn SBP > 160 -Losartan 50mg po daily -Metprolol 12.5mg po bid Status: Chronic (11) Iron deficiency anemia Assessment & Plan: -Feosol 300mg po bid Status: Chronic (12) Prophylactic measure Assessment & Plan: -Heparin 5000u sc q12 -Protonix 40mg po daily -SCD c/i -PT/OT -Heart healthy moderate consistent carb renal diet - Bedside commode -Palliative Care Consult- Full Code. Status: Acute <Annabel Galindo V - Last Filed: 12/24/16 06:29> Objective - Vital Signs/Intake and Output Vital Signs (last 24 hours): Temp Pulse Resp BP Pulse Ox 97.7 F 68 20 168/69 H 97 12/24/16 04:00 12/24/16 04:03 12/24/16 04:00 12/24/16 04:00 12/24/16 04:00 Intake and Output: 12/23/16 12/24/16 18:59 06:59 Intake Total 600 Output Total 500 Balance 100 - Medications Medications: Current Medications Amlodipine Besylate (Norvasc) 10 mg PO DAILY [facility] Last Admin: 12/23/16 11:00 Dose: 10 mg Aspirin (Aspirin Chewable) 81 mg PO DAILY [facility] Last Admin: 12/23/16 22:13 Dose: 81 mg Ciprofloxacin (Cipro) 500 mg PO BID [facility] Last Admin: 12/23/16 18:49 Dose: 500 mg Docusate Sodium (Colace) 100 mg PO BID [facility] Last Admin: 12/23/16 18:49 Dose: 100 mg Famotidine (Pepcid) 20 mg PO DAILY [facility] Last Admin: 12/23/16 11:00 Dose: 20 mg Ferrous Sulfate (Feosol Liq) 300 mg PO BID [facility] Last Admin: 12/23/16 18:49 Dose: 300 mg Hydralazine HCl (Apresoline) 10 mg IVP Q6H PRN PRN Reason: Systolic Blood Pressure Last Admin: 12/16/16 14:30 Dose: 10 mg Ampicillin 1 gm/ Sodium (Chloride) 100 mls @ 100 mls/hr IVPB Q6H [facility] Last Admin: 12/24/16 04:48 Dose: 100 mls/hr Dextrose/Sodium Chloride (Dextrose 5%/0.45% Ns 1000 Ml) 1,000 mls @ 50 mls/hr IV .Q20H [facility] Last Admin: 12/23/16 22:11 Dose: 50 mls/hr Insulin Aspart (Novolog) 0 unit SC [facility] PRN Reason: Protocol Last Admin: 12/23/16 22:11 Dose: Not Given Insulin Glargine (Lantus) 5 unit SC [facility] Last Admin: 12/23/16 22:10 Dose: Not Given Levothyroxine Sodium (Synthroid) 100 mcg PO DAILY@0630 [facility] Last Admin: 12/23/16 06:25 Dose: Not Given Losartan Potassium (Cozaar) 100 mg PO DAILY [facility] Last Admin: 12/23/16 11:00 Dose: 100 mg Metoprolol Tartrate (Lopressor) 12.5 mg PO 0800,1800 [facility] Last Admin: 12/23/16 18:50 Dose: 12.5 mg Rosuvastatin Calcium (Crestor) 2.5 mg PO [facility] Last Admin: 12/23/16 22:10 Dose: 2.5 mg Saccharomyces Boulardii (Florastor) 250 mg PO BID [facility] Last Admin: 12/23/16 18:49 Dose: 250 mg Ticagrelor (Brilinta) 90 mg PO BID [facility] Last Admin: 12/23/16 18:00 Dose: 90 mg Tramadol HCl (Ultram) 25 mg PO TID PRN PRN Reason: Pain, moderate (4-7) Last Admin: 12/16/16 10:17 Dose: 25 mg - Labs Labs: 12/23/16 19:58 12/23/16 19:58 PT 11.9 SECONDS (9.7-12.2) 12/16/16 13:51 INR 1.1 12/16/16 13:51 APTT 31 SECONDS (21-34) 12/16/16 13:51 Attending/Attestation - Attestation I have personally seen and examined this patient.: Yes I have fully participated in the care of the patient.: Yes I have reviewed all pertinent clinical information, including history, physical exam and plan: Yes Notes (Text): This is a late computer entry for 12/23/16. Patient seen, examined and case discussed with day-time internal control specialist. Patient seen at bedside. Patient is refusing IV/blood work. Discussed with nursing to try to receive sample since patient is set for the OR tomorrow. Discussed with Dr. Brown, patient is undergo surgical procedure tomorrow ( retrograde pedal angio); will speak with patient's son. Discussed with Dr. Dobson previously, patient to continue Aspirin and Brilinta. Patient has 2 stents placed this past during cardiac cath ( [facility]) and has discussed with surgeon to continue these medications. Blood culture is negative for 4 days. Likely prior blood culture are contaminant. Patient is currently on Ampicillin (12/20/16) and Ciprofloxcin PO per infectious disease. Patient is medically optimized prior to procedure tomorrow. Per cardiology, patient is stable for angiogram. 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 Gaytan consulted. Podiatry plans to follow while patient is hospitalized. - Patient had TMA 10/17/[address] Gaytan. -Tramadol 25mg po tid prn pain Infectious Disease- Dr. Galindo- help appreciated. -Wound culture 12/12/16: Pseudomononas Aeruginosa, Enterococcus faecalis -Currently on Ampicillin 1 gram IV Q 6 hours (active since 12/20/16) and Ciprofloxacin 500mg PO Q12H (active since 12/15/16_ Vascular surgeon Dr. Brown consulted- help appreciated. -Patient is s/p aortofemoral angiogram via right groin with selective catherization of left femoral artery 12/17/16. -Patient for retrograde pedal angio with Dr. Brown. Surgery preop/intropa/ post per surgery. Per Cardio, patient is stable for angiogram. -Continue Brilinta 90 mg PO bid and Continue Aspirin 81 mg PO daily; discussed with between cardiology and surgery given patient has 2 stents placed Imaging: Abdominal Angiography: CTA ABDOMEN PELVIS:1. Moderate calcific plaque throughout the abdominal aorta without stenosis. 2. Severe calcific plaqueat the origin of the celiac artery with severe stenosis of the celiac artery. There is poststenotic dilatation. 3. There is moderate stenosis of the origin of the superior mesenteric artery. 4. Both renal arteries have moderate stenosis at the origin. LEFT LOWER EXTREMITY CT ANGIOGRAM:1. Unremarkable common femoral artery. 2. Patent distal SFA stent. 3. Popliteal artery has moderate diffuse stenosis. 4. Left runoff shows patent anterior tibial artery. Posterior tibial artery and peroneal artery believed to be occluded. RIGHT LOWER EXTREMITY CTA:1. Common femoral artery is unremarkable 2. Moderate calcific plaque throughout the SFA with there is a moderate stenosis in the mid SFA. 3. Moderate stenosis of popliteal artery 4. Unremarkable anterior tibial artery. Posterior tibial artery and peroneal artery believed to be occluded. NONVASCULAR FINDINGS: Prostate measures 6.7 centimeter AP x 5.4 centimeter transverse with mass effect on the urinary bladder. On last visit: Arterial doppler: 1.) Occluded left posterior tibial artery. No flow detected throughout the vessel. 2.) Continuous monophasic waveforms, beginning at left superficial femoral artery level. Calcific plaques notted throughout bilateral lower extremities. Slightly increased velocities due to vessel narrowing. No evidence of arterial occlusions of bilateral extremity arteries above the knee. (see full report) s/p angiogram - aortofemoral angiogram via right groin, selective angiogram left femoral artery. pathway atherectomy. 40% proximal sfa occlusion and 100% mid and distal sfa occlusion (see full report). Status: Chronic (2) PVD (peripheral vascular disease) Assessment & Plan: Vascular surgeon Dr. Brown consulted ---> help appreciated. -Patient is s/p aortofemoral angiogram via right groin with selective catherization of left femoral artery 12/17/16. -Patient for retrograde pedal angio with Dr. Brown on 12/24/16. Per cardio stable for angiogram tomorrow. - Continue Brilinta 90 mg PO BID and Continue Aspirin 81 mg PO daily--> patient has 2 cardiac stents - retrograde pedal angio 12/24/16 Status: Chronic (3) Bacteremia Assessment & Plan: ID consult placed- Dr. Galindo ---> help appreciated. Blood Cx positive for Corynebacterium on 12/11/16 X2. Blood culture (12/19/16): negative thus far Continue 500mg Ciprofloxacin PO bid Continue 1gm Ampicillin IVPB Q6H Florastor 250mg PO bid Status: Acute (4) Congestive heart failure (CHF) Assessment & Plan: Cardio consult placed- Dr. Dobson- help appreciated. Consult placed for cardiac clearance prior to vascular procedure. - Myocardial Perfusion Scan showed: Inferolateral Reversible Ischemia - Patient transferred to [facility] for Cardiac Catheterization 12/20/16. - s/p Catheterization: PCI LAD, Ramus branch - per Dr. Dobson - stable for angiogram - per Dr. Dobson Continue ASA/Brilinta. cannot be held due to PCI - Hold home lasix 20 mg PO daily secondary to acute on chronic kidney injury - Continue Lopressor 12.5 mg PO BID - Continue Losartan 100 mg PO mg PO daily - Continue Amlodipine 10 mg PO daily -Aspirin 81mg PO daily -Brilnta 90mg PO bid -CXR: No evidence of new infiltrate or consolidation in the lungs. No significant pleural effusion or pneumothorax apparent. Status: Chronic (5) Coronary artery disease Assessment & Plan: Cardio consult placed- Dr. Dobson- help appreciated. Consult placed for cardiac clearance prior to vascular procedure. Cardiac catherization performed on 12/20/16 at [facility], with initial result stating Stent in the LAD (Double Vessels disease) As per conversation with Dr. dobson, he will communicate with IR and General surgery regarding cardiac clearance -->stable for angiogram Aspirin 81 mg PO daily Brilinta 90mg PO bid Crestor 2.5 mg PO HS Status: Chronic (6) Hypothyroidism Assessment & Plan: -Continue Synthroid 100 mcg po AM -TSH 6.33, Free T4 0.96 Status: Chronic (7) Diabetes mellitus Assessment & Plan: -HgbA1c 7.2 -Accuchecks ACHS -RISS -Lantus 5units HS (1/2 dose prior to procedure) Started on gentle IV hydration to prevent hypoglycemia overnight Status: Chronic (8) Hypercholesteremia Assessment & Plan: -LDL 125, HDL 24, Cholesterol 187, Triglycerides 208 -Crestor 2.5mg po hs Status: Chronic (9) Acute on chronic renal insufficiency Assessment & Plan: -Improving -BUN/CR -Continue D5% Normal saline 75cc/hr IV -Nephrology, Dr. Carmona consulted-->help appreciated -Renal US: Bilateral renal cysts, some of which are mildly complex containing calcifications and septations (see full report) -Per Dr. Carmona, may need kidney CT in future to evaluate complex cysts Status: Acute (10) Hypertension Assessment & Plan: -Hydralazine 10mg ivp q6 prn SBP > 160 -Losartan 50mg po daily -Metprolol 12.5mg po bid -Norvasc 10mg PO daily Status: Chronic (11) Iron deficiency anemia Assessment & Plan: -Feosol 300mg po bid Status: Chronic (12) Prophylactic measure Assessment & Plan: -held anticoagulation Heparin 5000u sc q12 -Pepcid 20mg PO daily -SCD c/i -PT/OT -Heart healthy moderate consistent carb renal diet-->NPO after midnight - Bedside commode -Palliative Care Consult- Full Code. Status: Acute
[2016-12-23] MEDS: Levothyroxine 100 MCG TAB PO SCH ×2 (06:04→06:25)
--- NOTE | 2016-12-23 06:25 | CP.PCM.PN ---
Subjective - Date & Time of Evaluation Date of Evaluation: 12/23/16 Time of Evaluation: 06:23 - Subjective Subjective: Surgery: Dr. Brown Pt seen and examined. No acute events overnight. Pt resting comfortably w. out complaints. Objective - Vital Signs/Intake and Output Vital Signs (last 24 hours): Temp Pulse Resp BP Pulse Ox 97.2 F L 78 20 115/53 L 99 12/22/16 23:20 12/22/16 23:20 12/22/16 23:20 12/22/16 23:20 12/22/16 23:20 Intake and Output: 12/22/16 12/23/16 18:59 06:59 Intake Total 500 420 Output Total 400 450 Balance 100 -30 - Medications Medications: Current Medications Amlodipine Besylate (Norvasc) 10 mg PO DAILY [facility] Last Admin: 12/22/16 10:59 Dose: 10 mg Aspirin (Aspirin Chewable) 81 mg PO DAILY [facility] Last Admin: 12/18/16 09:52 Dose: 81 mg Ciprofloxacin (Cipro) 500 mg PO BID [facility] Last Admin: 12/22/16 18:36 Dose: 500 mg Docusate Sodium (Colace) 100 mg PO BID [facility] Last Admin: 12/22/16 18:36 Dose: 100 mg Famotidine (Pepcid) 20 mg PO DAILY [facility] Last Admin: 12/22/16 10:59 Dose: 20 mg Ferrous Sulfate (Feosol Liq) 300 mg PO BID [facility] Last Admin: 12/22/16 18:36 Dose: 300 mg Hydralazine HCl (Apresoline) 10 mg IVP Q6H PRN PRN Reason: Systolic Blood Pressure Last Admin: 12/16/16 14:30 Dose: 10 mg Ampicillin 1 gm/ Sodium (Chloride) 100 mls @ 100 mls/hr IVPB Q6H [facility] Last Admin: 12/23/16 06:00 Dose: 100 mls/hr Insulin Aspart (Novolog) 0 unit SC ACHS [facility] PRN Reason: Protocol Last Admin: 12/22/16 22:30 Dose: Not Given Insulin Glargine (Lantus) 5 unit SC HS [facility] Last Admin: 12/22/16 22:38 Dose: 5 u Levothyroxine Sodium (Synthroid) 100 mcg PO DAILY@0630 [facility] Last Admin: 12/23/16 06:04 Dose: 100 mcg Losartan Potassium (Cozaar) 100 mg PO DAILY [facility] Last Admin: 12/22/16 10:59 Dose: 100 mg Metoprolol Tartrate (Lopressor) 12.5 mg PO 0800,1800 [facility] Last Admin: 12/22/16 18:36 Dose: 12.5 mg Rosuvastatin Calcium (Crestor) 2.5 mg PO HS [facility] Last Admin: 12/22/16 22:37 Dose: 2.5 mg Saccharomyces Boulardii (Florastor) 250 mg PO BID [facility] Last Admin: 12/22/16 18:39 Dose: 250 mg Ticagrelor (Brilinta) 90 mg PO BID [facility] Last Admin: 12/22/16 18:36 Dose: 90 mg Tramadol HCl (Ultram) 25 mg PO TID PRN PRN Reason: Pain, moderate (4-7) Last Admin: 12/16/16 10:17 Dose: 25 mg - Labs Labs: 12/22/16 12:11 12/22/16 12:11 PT 11.9 SECONDS (9.7-12.2) 12/16/16 13:51 INR 1.1 12/16/16 13:51 APTT 31 SECONDS (21-34) 12/16/16 13:51 - Constitutional Appears: Non-toxic, No Acute Distress - Head Exam Head Exam: ATRAUMATIC, NORMOCEPHALIC - Eye Exam Eye Exam: EOMI - ENT Exam ENT Exam: Mucous Membranes Moist - Neck Exam Neck Exam: Full ROM - Respiratory Exam Respiratory Exam: NORMAL BREATHING PATTERN. absent: Accessory Muscle Use, Respiratory Distress - GI/Abdominal Exam GI & Abdominal Exam: Soft. absent: Tenderness - Extremities Exam Additional comments: non-healing TMA - Neurological Exam Neurological Exam: Alert, Awake, Oriented x3 Assessment and Plan - Assessment and Plan (Free Text) Assessment: 81M w. PVD -For Angio tomorrow -NPO at midnight -consent in chart, risks/benefits d/w pt [employer] PGY2
[2016-12-23] MEDS: (Novolog) Insulin Aspart, Recombinant 100 u/ml 10 ml vial SC SCH ×4 (08:30→22:11)
[2016-12-23] MEDS: Ferrous Sulfate 300 mg/5 mL Liq UD PO SCH ×2 (11:00→18:49)
[2016-12-23] MEDS: Saccharomyces Boulardi 250 mg Cap PO SCH ×2 (11:00→18:49)
--- NOTE | 2016-12-23 19:12 | CP.PCM.PCO ---
Physician Communication Note - Physician Communication Note Physician Communication Note: C/w aspirin/brilinta; discussed between cardio/ surgery; patient has 2 stent
[2016-12-23 20:03] LABS: BASO # 0.1 K/uL (0.0-0.2); BASO % 1.1 % (0.0-2.0); EOS # 0.6 K/uL (0.0-0.7); EOS % 7.9 % (0.0-4.0); HEMATOCRIT 34.9 % (35.0-51.0); LYMPH # 2.8 K/uL (1.0-4.3); LYMPH % 34.8 % (20.0-40.0); MEAN CELL VOLUME 75.9 fL (80.0-94.0); MEAN CORPUSCULAR HEMOGLOBIN 23.8 pg (27.0-31.0); MEAN CORPUSCULAR HGB CONC 31.4 g/dL (33.0-37.0); MEAN PLATELET VOLUME 8.3 fL (7.2-11.7); MONO # 1.2 K/uL (0.0-0.8); MONO % 14.7 % (0.0-10.0); RED CELL DISTRIBUTION WIDTH 19.8 % (11.5-14.5)
[2016-12-23 20:13] LABS: CHLORIDE 104 mmol/L (98-107)
[2016-12-23 20:14] LABS: POTASSIUM 3.9 mmol/L (3.6-5.2); SODIUM 136 mmol/L (132-148)
[2016-12-23 20:16] LABS: ALB/GLOB RATIO 0.7 (1.0-2.1); ALKALINE PHOSPHATASE 175 U/L (38-126); AST/SGOT 21 U/L (17-59); BILIRUBIN,TOTAL 0.6 mg/dL (0.2-1.3); BLOOD UREA NITROGEN 15 mg/dL (9-20); CARBON DIOXIDE 20 mmol/L (22-30); GFR AFRICAN-AMERICAN > 60; TOTAL PROTEIN 7.2 g/dL (6.3-8.3)
[2016-12-23 20:17] LABS: ALT/SGPT 26 U/L (21-72); CALCIUM 8.5 mg/dl (8.6-10.4); GLUCOSE,RANDOM 127 mg/dL (75-110); MAGNESIUM 1.8 mg/dL (1.6-2.3); PHOSPHOROUS 3.6 mg/dL (2.5-4.5)
[2016-12-23] MEDS: (Lantus) Insulin Glargine, Recombinant SC SCH (22:10)
[2016-12-23] MEDS: Rosuvastatin Calcium 2.5 mg Tab PO SCH (22:10)
[2016-12-23] MEDS: Dextrose 5%/0.45% NS 1,000 ML IV SCH (22:11)
[2016-12-24] MEDS: AMPicillin 1 GM in Sodium Chloride 0.9% 100 ML IVPB SCH ×4 (04:48→22:08)
[2016-12-24] MEDS: Levothyroxine 100 MCG TAB PO SCH (05:55)
[2016-12-24 07:31] LABS: INR 1.1
[2016-12-24 07:39] LABS: BASO # 0.1 K/uL (0.0-0.2); BASO % 1.4 % (0.0-2.0); EOS # 0.7 K/uL (0.0-0.7); EOS % 8.7 % (0.0-4.0); HEMATOCRIT 36.3 % (35.0-51.0); LYMPH # 2.6 K/uL (1.0-4.3); MEAN CELL VOLUME 76.4 fL (80.0-94.0); MEAN CORPUSCULAR HEMOGLOBIN 24.2 pg (27.0-31.0); MEAN CORPUSCULAR HGB CONC 31.6 g/dL (33.0-37.0); MEAN PLATELET VOLUME 7.9 fL (7.2-11.7); MONO # 1.2 K/uL (0.0-0.8); MONO % 14.7 % (0.0-10.0); NRBC % 0.2 % (0.0-2.0); RED CELL DISTRIBUTION WIDTH 19.5 % (11.5-14.5); WHITE BLOOD COUNT 8.1 K/uL (4.8-10.8)
[2016-12-24 07:42] LABS: CHLORIDE 104 mmol/L (98-107)
[2016-12-24 07:43] LABS: SODIUM 137 mmol/L (132-148)
[2016-12-24 07:45] LABS: AST/SGOT 25 U/L (17-59); BILIRUBIN,TOTAL 0.6 mg/dL (0.2-1.3); CARBON DIOXIDE 21 mmol/L (22-30); GFR AFRICAN-AMERICAN > 60
[2016-12-24 07:46] LABS: ALB/GLOB RATIO 0.7 (1.0-2.1); ALKALINE PHOSPHATASE 147 U/L (38-126); ALT/SGPT 23 U/L (21-72); BLOOD UREA NITROGEN 14 mg/dL (9-20); CALCIUM 8.6 mg/dl (8.6-10.4); GLUCOSE,RANDOM 101 mg/dL (75-110); MAGNESIUM 1.8 mg/dL (1.6-2.3); PHOSPHOROUS 3.6 mg/dL (2.5-4.5); TOTAL PROTEIN 7.6 g/dL (6.3-8.3)
[2016-12-24] MEDS: (Novolog) Insulin Aspart, Recombinant 100 u/ml 10 ml vial SC SCH ×4 (07:54→21:36)
--- NOTE | 2016-12-24 10:17 | CP.PCM.PN ---
Subjective - Date & Time of Evaluation Date of Evaluation: 12/24/16 Time of Evaluation: 09:40 - Subjective Subjective: Medicine Note (PGY 1) : Dr. Sands's service Patient was seen and examined at bedside. Patient orientated to person and knows he is in the hospital but is not oriented to time. Patient denied chest pain, shortness of breath, nausea, vomiting, diarrhea, or constipation. Patient denied tenderness to his left foot. Objective - Vital Signs/Intake and Output Vital Signs (last 24 hours): Temp Pulse Resp BP Pulse Ox 97.7 F 69 18 147/57 L 100 12/24/16 07:05 12/24/16 07:05 12/24/16 07:05 12/24/16 07:05 12/24/16 07:05 Intake and Output: 12/24/16 12/24/16 06:59 18:59 Intake Total 350 Balance 350 - Medications Medications: Current Medications Amlodipine Besylate (Norvasc) 10 mg PO DAILY [facility] Last Admin: 12/23/16 11:00 Dose: 10 mg Aspirin (Aspirin Chewable) 81 mg PO DAILY [facility] Last Admin: 12/24/16 09:04 Dose: 81 mg Ciprofloxacin (Cipro) 500 mg PO BID [facility] Last Admin: 12/23/16 18:49 Dose: 500 mg Docusate Sodium (Colace) 100 mg PO BID [facility] Last Admin: 12/23/16 18:49 Dose: 100 mg Famotidine (Pepcid) 20 mg PO DAILY [facility] Last Admin: 12/23/16 11:00 Dose: 20 mg Ferrous Sulfate (Feosol Liq) 300 mg PO BID [facility] Last Admin: 12/23/16 18:49 Dose: 300 mg Hydralazine HCl (Apresoline) 10 mg IVP Q6H PRN PRN Reason: Systolic Blood Pressure Last Admin: 12/16/16 14:30 Dose: 10 mg Ampicillin 1 gm/ Sodium (Chloride) 100 mls @ 100 mls/hr IVPB Q6H [facility] Last Admin: 12/24/16 04:48 Dose: 100 mls/hr Dextrose/Sodium Chloride (Dextrose 5%/0.45% Ns 1000 Ml) 1,000 mls @ 50 mls/hr IV .Q20H [facility] Last Admin: 12/23/16 22:11 Dose: 50 mls/hr Insulin Aspart (Novolog) 0 unit SC [facility] PRN Reason: Protocol Last Admin: 12/24/16 07:54 Dose: Not Given Insulin Glargine (Lantus) 5 unit SC [facility] Last Admin: 12/23/16 22:10 Dose: Not Given Levothyroxine Sodium (Synthroid) 100 mcg PO DAILY@0630 [facility] Last Admin: 12/24/16 05:55 Dose: 100 mcg Losartan Potassium (Cozaar) 100 mg PO DAILY [facility] Last Admin: 12/24/16 09:03 Dose: 100 mg Metoprolol Tartrate (Lopressor) 12.5 mg PO 0800,1800 [facility] Last Admin: 12/24/16 08:30 Dose: 12.5 mg Rosuvastatin Calcium (Crestor) 2.5 mg PO [facility] Last Admin: 12/23/16 22:10 Dose: 2.5 mg Saccharomyces Boulardii (Florastor) 250 mg PO BID [facility] Last Admin: 12/23/16 18:49 Dose: 250 mg Ticagrelor (Brilinta) 90 mg PO BID [facility] Last Admin: 12/24/16 09:03 Dose: 90 mg Tramadol HCl (Ultram) 25 mg PO TID PRN PRN Reason: Pain, moderate (4-7) Last Admin: 12/16/16 10:17 Dose: 25 mg - Labs Labs: 12/24/16 07:16 12/24/16 07:16 PT 12.1 SECONDS (9.7-12.2) 12/24/16 07:16 INR 1.1 12/24/16 07:16 APTT 31 SECONDS (21-34) 12/16/16 13:51 - Constitutional Appears: No Acute Distress - Head Exam Head Exam: NORMAL INSPECTION, NORMOCEPHALIC - Eye Exam Eye Exam: EOMI, Normal appearance, PERRL Pupil Exam: NORMAL ACCOMODATION - ENT Exam ENT Exam: Mucous Membranes Moist - Respiratory Exam Respiratory Exam: Clear to Ausculation Bilateral, NORMAL BREATHING PATTERN. absent: Rales, Rhonchi, Wheezes, Stridor - Cardiovascular Exam Cardiovascular Exam: REGULAR RHYTHM, RRR, +S1, +S2. absent: JVD - GI/Abdominal Exam GI & Abdominal Exam: Soft, Normal Bowel Sounds. absent: Guarding, Tenderness, Rebound - Extremities Exam Extremities Exam: absent: Calf Tenderness, Joint Swelling, Pedal Edema, Tenderness Additional comments: non-healing MTA - Neurological Exam Neurological Exam: Alert, Awake. absent: Oriented x3 (oriented to person and place) - Psychiatric Exam Psychiatric exam: Normal Mood - Skin Skin Exam: Dry, Warm (left MTA was dry and intact, dressing was changed) Assessment and Plan (1) PVD (peripheral vascular disease) Assessment & Plan: Podiatry Dr. Gaytan consulted. Podiatry plans to follow while patient is hospitalized. - Patient had TMA 10/17/[address] Gaytan. -Tramadol 25mg po tid prn pain Infectious Disease- Dr. Galindo- help appreciated. -Wound culture 12/12/16: Pseudomononas Aeruginosa, Enterococcus faecalis -Currently on Ciprofloxacin 500mg PO Q12H day 10 and Ampicillin 1gm IVPB Q6H day [address] Brown consulted- help appreciated. -Patient is s/p aortofemoral angiogram via right groin with selective catherization of left femoral artery 12/17/16. -Patient for retrograde tibial posterior angiogram 12/24/[address] Brown. 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 Gaytan consulted. Podiatry plans to follow while patient is hospitalized. - Patient had TMA 10/17/[address] Gaytan. -Tramadol 25mg po tid prn pain Infectious Disease- Dr. Galindo- help appreciated. -Wound culture 12/12/16: Pseudomononas Aeruginosa, Enterococcus faecalis -Currently on Ciprofloxacin 500mg PO Q12H day 10 and Ampicillin 1gm IVPB Q6H day [address] Brown consulted- help appreciated. -Patient is s/p aortofemoral angiogram via right groin with selective catherization of left femoral artery 12/17/16. -Patient for retrograde tibial posterior angiogram 12/24/[address] Brown. - Continue Plavix 75 mg PO daily - Continue with aspirin/brilinta; discussed between cardio/surgery Status: Chronic (3) Hypertension Assessment & Plan: -Hydralazine 10mg ivp q6 prn SBP > 160 -Losartan 50mg po daily -Metprolol 12.5mg po bid -Norvasc 10mg PO daily - Monitor B/P Status: Chronic (4) Bacteremia Assessment & Plan: ID consult placed- Dr. Galindo ---> help appreciated. Blood Culture showed no growth 12/19/16 Blood Cx positive for Corynebacterium on 12/11/16 X2. Continue 500mg Ciprofloxacin PO bid day 10 Continue 1gm Ampicillin IVPB Q6H day 5 Status: Acute (5) Congestive heart failure (CHF) Assessment & Plan: Cardio consult placed- Dr. Dobson- help appreciated. Consult placed for cardiac clearance prior to vascular procedure. - Myocardial Perfusion Scan showed: Inferolateral Reversible Ischemia - Patient transferred to [facility] for Cardiac Catheterization 12/20/16. - s/p Catheterization: PCI LAD, Ramus branch - per Dr. Dobson - stable for angiogram - per Dr. Dobson Continue ASA/Brilinta. cannot be held due to PCI - Hold home lasix 20 mg PO daily secondary to acute on chronic kidney injury - Continue Lopressor 12.5 mg PO BID - Continue Losartan 100 mg PO mcg PO daily - Continue Amlodipine 10 mg PO daily -CXR: No evidence of new infiltrate or consolidation in the lungs. No significant pleural effusion or pneumothorax apparent. Status: Chronic (6) Coronary artery disease Assessment & Plan: Cardio consult placed- Dr. Dobson- help appreciated. Consult placed for cardiac clearance prior to vascular procedure. Cardiac catherization performed on 12/20/16 at [facility], with initial result stating Stent in the LAD (Double Vessels disease) As per Dr. Dobson Continue with aspirin/brilinta; discussed between cardio/ surgery Aspirin 81 mg PO daily Plavix 75 mg PO daily Crestor 2.5 mg PO HS Status: Chronic (7) Hypothyroidism Assessment & Plan: -Continue Synthroid 100 mcg po AM -TSH 6.33, Free T4 0.96 Status: Chronic (8) Diabetes mellitus Assessment & Plan: -HgbA1c 7.2 -Accuchecks ACHS -RISS -Lantus 10units HS - confirmed by pharmacy Status: Chronic (9) Hypercholesteremia Assessment & Plan: -LDL 125, HDL 24, Cholesterol 187, Triglycerides 208 -Crestor 2.5mg po hs Status: Chronic (10) Acute on chronic renal insufficiency Assessment & Plan: -Improving -BUN/CR: 14/1.0- f/u labs this AM -Continue D5% Normal saline 75cc/hr IV -Nephrology, Dr. Carmona consulted. Recommends IV fluids prior to angio and close renal function follow-up post procedure -Renal US: Bilateral renal cysts, some of which are mildly complex containing calcifications and septations (see full report) -Per Dr. Carmona, may need kidney CT in future to evaluate complex cysts Status: Acute (11) Iron deficiency anemia Assessment & Plan: -Feosol 300mg po bid Status: Chronic (12) Prophylactic measure Assessment & Plan: -held anticoagulation Heparin 5000u sc q12 -Pepcid 20mg PO daily -SCD c/i -PT/OT -Heart healthy moderate consistent carb renal diet - Bedside commode -Palliative Care Consult- Full Code. Status: Acute
[2016-12-24] MEDS: Saccharomyces Boulardi 250 mg Cap PO SCH ×2 (10:33→17:52)
[2016-12-24] MEDS: Ferrous Sulfate 300 mg/5 mL Liq UD PO SCH ×2 (10:33→17:51)
--- NOTE | 2016-12-24 12:29 | CP.PCM.PN ---
Subjective - Date & Time of Evaluation Date of Evaluation: 12/24/16 Time of Evaluation: 12:26 - Subjective Subjective: Alert Awaiting LE angio Creat has stabilized at 1.0- should tolerate angio [id number] BP controlled Remains confused- no new complaints Objective - Vital Signs/Intake and Output Vital Signs (last 24 hours): Temp Pulse Resp BP Pulse Ox 97.7 F 69 18 147/57 L 100 12/24/16 07:05 12/24/16 07:05 12/24/16 07:05 12/24/16 07:05 12/24/16 07:05 Intake and Output: 12/24/16 12/24/16 06:59 18:59 Intake Total 350 Balance 350 - Medications Medications: Current Medications Amlodipine Besylate (Norvasc) 10 mg PO DAILY [facility] Last Admin: 12/24/16 10:34 Dose: Not Given Aspirin (Aspirin Chewable) 81 mg PO DAILY [facility] Last Admin: 12/24/16 09:04 Dose: 81 mg Ciprofloxacin (Cipro) 500 mg PO BID [facility] Last Admin: 12/24/16 10:33 Dose: Not Given Docusate Sodium (Colace) 100 mg PO BID [facility] Last Admin: 12/24/16 10:33 Dose: Not Given Famotidine (Pepcid) 20 mg PO DAILY [facility] Last Admin: 12/24/16 10:34 Dose: Not Given Ferrous Sulfate (Feosol Liq) 300 mg PO BID [facility] Last Admin: 12/24/16 10:33 Dose: Not Given Hydralazine HCl (Apresoline) 10 mg IVP Q6H PRN PRN Reason: Systolic Blood Pressure Last Admin: 12/16/16 14:30 Dose: 10 mg Ampicillin 1 gm/ Sodium (Chloride) 100 mls @ 100 mls/hr IVPB Q6H [facility] Last Admin: 12/24/16 11:59 Dose: 100 mls/hr Dextrose/Sodium Chloride (Dextrose 5%/0.45% Ns 1000 Ml) 1,000 mls @ 50 mls/hr IV .Q20H [facility] Last Admin: 12/23/16 22:11 Dose: 50 mls/hr Insulin Aspart (Novolog) 0 unit SC [facility] PRN Reason: Protocol Last Admin: 12/24/16 12:07 Dose: Not Given Insulin Glargine (Lantus) 5 unit SC HS [facility] Last Admin: 12/23/16 22:10 Dose: Not Given Levothyroxine Sodium (Synthroid) 100 mcg PO DAILY@0630 [facility] Last Admin: 12/24/16 05:55 Dose: 100 mcg Losartan Potassium (Cozaar) 100 mg PO DAILY [facility] Last Admin: 12/24/16 09:03 Dose: 100 mg Metoprolol Tartrate (Lopressor) 12.5 mg PO 0800,1800 [facility] Last Admin: 12/24/16 08:30 Dose: 12.5 mg Rosuvastatin Calcium (Crestor) 2.5 mg PO [facility] Last Admin: 12/23/16 22:10 Dose: 2.5 mg Saccharomyces Boulardii (Florastor) 250 mg PO BID [facility] Last Admin: 12/24/16 10:33 Dose: Not Given Ticagrelor (Brilinta) 90 mg PO BID [facility] Last Admin: 12/24/16 09:03 Dose: 90 mg Tramadol HCl (Ultram) 25 mg PO TID PRN PRN Reason: Pain, moderate (4-7) Last Admin: 12/16/16 10:17 Dose: 25 mg - Labs Labs: 12/24/16 07:16 12/24/16 07:16 PT 12.1 SECONDS (9.7-12.2) 12/24/16 07:16 INR 1.1 12/24/16 07:16 APTT 31 SECONDS (21-34) 12/16/16 13:51 - Constitutional Appears: No Acute Distress, Chronically Ill - Head Exam Head Exam: ATRAUMATIC, NORMAL INSPECTION - Eye Exam Eye Exam: EOMI, Normal appearance - Neck Exam Neck Exam: Normal Inspection. absent: Tenderness - Respiratory Exam Respiratory Exam: Clear to Ausculation Bilateral, NORMAL BREATHING PATTERN - Cardiovascular Exam Cardiovascular Exam: REGULAR RHYTHM, +S1 - GI/Abdominal Exam GI & Abdominal Exam: Soft. absent: Tenderness - Extremities Exam Extremities Exam: Calf Tenderness, Tenderness - Neurological Exam Neurological Exam: Alert, CN II-XII Intact - Skin Skin Exam: Dry, Warm Assessment and Plan (1) CKD (chronic kidney disease) stage 3, GFR 30-59 ml/min Status: Acute (2) PVD (peripheral vascular disease) Status: Chronic (3) Diabetes mellitus Status: Chronic - Assessment and Plan (Free Text) Plan: For angio now Monitor renal function post angio monitor HTN
[2016-12-24] MEDS ORDERED: Lidocaine 2% Inj (20ml) ONE (13:18)
[2016-12-24] MEDS ORDERED: Iodixanol 320 MG/ML 100 ML BOTTLE IV ONE (13:18)
--- NOTE | 2016-12-24 13:57 | PCM.SURG1 ---
Surgeon's Initial Post Op Note - Surgeon's Notes Surgeon: santos Mortar Mixer Operator: 0 Type of Anesthesia: IV Sedation Anesthesia Administered By: juan ramon Pre-Operative Diagnosis: non healing tma Operative Findings: unable to retrograde cannulate posterior tibial artery with us guidance Post-Operative Diagnosis: same Operation Performed: attempted pedal access Specimen/Specimens Removed: 0 Estimated Blood Loss: EBL {In ML}: 3 Blood Products Given: N/A Date of Surgery/Procedure: 12/24/16 Time of Surgery/Procedure: 13:57
[2016-12-24] MEDS ORDERED: HYDROmorphone 0.5 mg/0.5 ml ISec IVP PRN (14:06)
[2016-12-24] MEDS: Sodium Chloride 0.9% 1,000 ML IV SCH (16:08)
--- NOTE | 2016-12-24 17:10 | VAS ---
DATE: 12/24/2016 OPERATIVE ANGIOGRAM REPORT PREOPERATIVE DIAGNOSIS: A poorly healing transmetatarsal amputation stump. POSTOPERATIVE DIAGNOSIS: Poorly healing transmetatarsal amputation stump. PROCEDURE CARRIED OUT: Attempted vertebral access using ultrasound guidance for a left posterior tib ial artery. PROCEDURE: The patient was given local anesthesia as well as intravenous sedation. The area was pre pped and draped sterilely. The attempt was made to do retrograde cannulation of the posterior tibial from the ankle backward, retrograde fashion, which we were unable to do despite multiple attempts to cannulation. Because of this, procedure was abandoned. Elver Brown Jr., MD cc: [id number] TT: 12/24/2016 17:09:34 Confirmation # [id number] Dictation # [id number]
[2016-12-24] MEDS: Rosuvastatin Calcium 2.5 mg Tab PO SCH (21:37)
[2016-12-24] MEDS: (Lantus) Insulin Glargine, Recombinant SC SCH (21:37)
[2016-12-25] MEDS: AMPicillin 1 GM in Sodium Chloride 0.9% 100 ML IVPB SCH ×3 (04:54→17:06)
[2016-12-25] MEDS: Levothyroxine 100 MCG TAB PO SCH (06:43)
[2016-12-25] MEDS: (Novolog) Insulin Aspart, Recombinant 100 u/ml 10 ml vial SC SCH ×4 (08:05→22:27)
[2016-12-25] MEDS: Ferrous Sulfate 300 mg/5 mL Liq UD PO SCH ×3 (10:05→20:54)
[2016-12-25] MEDS: Saccharomyces Boulardi 250 mg Cap PO SCH ×3 (10:05→20:54)
--- NOTE | 2016-12-25 10:08 | CP.PCM.PN ---
Subjective - Date & Time of Evaluation Date of Evaluation: 12/25/16 Time of Evaluation: 07:00 - Subjective Subjective: Medicine Note (PGY 1) : Dr. Sands's service Patient was seen and examined at bedside. Patient orientated to person and knows he is in the hospital but is not oriented to time. Patient denied chest pain, shortness of breath, nausea, vomiting, diarrhea, or constipation. Patient denied tenderness to his left foot. Objective - Vital Signs/Intake and Output Vital Signs (last 24 hours): Temp Pulse Resp BP Pulse Ox 97.4 F L 62 18 142/55 L 100 12/25/16 07:50 12/25/16 09:00 12/25/16 07:50 12/25/16 07:50 12/25/16 07:50 Intake and Output: 12/25/16 12/25/16 06:59 18:59 Intake Total 820 Output Total 275 Balance 545 - Medications Medications: Current Medications Amlodipine Besylate (Norvasc) 10 mg PO DAILY [facility] Last Admin: 12/24/16 10:34 Dose: Not Given Aspirin (Aspirin Chewable) 81 mg PO DAILY [facility] Last Admin: 12/24/16 09:04 Dose: 81 mg Ciprofloxacin (Cipro) 500 mg PO BID [facility] Last Admin: 12/24/16 17:52 Dose: 500 mg Docusate Sodium (Colace) 100 mg PO BID [facility] Last Admin: 12/24/16 17:52 Dose: 100 mg Famotidine (Pepcid) 20 mg PO DAILY [facility] Last Admin: 12/24/16 10:34 Dose: Not Given Ferrous Sulfate (Feosol Liq) 300 mg PO BID [facility] Last Admin: 12/24/16 17:51 Dose: 300 mg Hydralazine HCl (Apresoline) 10 mg IVP Q6H PRN PRN Reason: Systolic Blood Pressure Last Admin: 12/16/16 14:30 Dose: 10 mg Ampicillin 1 gm/ Sodium (Chloride) 100 mls @ 100 mls/hr IVPB Q6H [facility] Last Admin: 12/25/16 04:54 Dose: 100 mls/hr Dextrose/Sodium Chloride (Dextrose 5%/0.45% Ns 1000 Ml) 1,000 mls @ 50 mls/hr IV .Q20H [facility] Last Admin: 12/23/16 22:11 Dose: 50 mls/hr Sodium Chloride (Sodium Chloride 0.9%) 1,000 mls @ 100 mls/hr IV .Q10H [facility] Last Admin: 12/24/16 16:08 Dose: 100 mls/hr Insulin Aspart (Novolog) 0 unit SC [facility] PRN Reason: Protocol Last Admin: 12/24/16 21:36 Dose: Not Given Insulin Glargine (Lantus) 5 unit SC [facility] Last Admin: 12/24/16 21:37 Dose: Not Given Levothyroxine Sodium (Synthroid) 100 mcg PO DAILY@0630 [facility] Last Admin: 12/25/16 06:43 Dose: 100 mcg Losartan Potassium (Cozaar) 100 mg PO DAILY [facility] Last Admin: 12/24/16 09:03 Dose: 100 mg Metoprolol Tartrate (Lopressor) 12.5 mg PO 0800,1800 [facility] Last Admin: 12/24/16 17:52 Dose: 12.5 mg Rosuvastatin Calcium (Crestor) 2.5 mg PO [facility] Last Admin: 12/24/16 21:37 Dose: Not Given Saccharomyces Boulardii (Florastor) 250 mg PO BID [facility] Last Admin: 12/24/16 17:52 Dose: 250 mg Ticagrelor (Brilinta) 90 mg PO BID [facility] Last Admin: 12/24/16 17:51 Dose: 90 mg Tramadol HCl (Ultram) 25 mg PO TID PRN PRN Reason: Pain, moderate (4-7) Last Admin: 12/16/16 10:17 Dose: 25 mg - Labs Labs: 12/24/16 07:16 12/24/16 07:16 PT 12.1 SECONDS (9.7-12.2) 12/24/16 07:16 INR 1.1 12/24/16 07:16 APTT 31 SECONDS (21-34) 12/16/16 13:51 - Constitutional Appears: No Acute Distress - Head Exam Head Exam: NORMAL INSPECTION, NORMOCEPHALIC - Eye Exam Eye Exam: Normal appearance - ENT Exam ENT Exam: Mucous Membranes Moist - Respiratory Exam Respiratory Exam: Wheezes (left upper and lower lung), NORMAL BREATHING PATTERN - Cardiovascular Exam Cardiovascular Exam: REGULAR RHYTHM, RRR, +S1, +S2. absent: JVD - GI/Abdominal Exam GI & Abdominal Exam: Soft, Normal Bowel Sounds. absent: Tenderness - Extremities Exam Extremities Exam: absent: Calf Tenderness, Joint Swelling, Pedal Edema, Tenderness - Neurological Exam Neurological Exam: Alert, Awake. absent: Oriented x3 (oriented to person and place ) - Psychiatric Exam Psychiatric exam: Normal Mood - Skin Skin Exam: Dry, Warm Additional comments: Left MTA was dry and intact Assessment and Plan (1) PVD (peripheral vascular disease) Assessment & Plan: Podiatry Dr. Gaytan consulted. Podiatry plans to follow while patient is hospitalized. - Patient had TMA 10/17/[address] Gaytan. -Tramadol 25mg po tid prn pain Infectious Disease- Dr. Galindo- help appreciated. -Wound culture 12/12/16: Pseudomononas Aeruginosa, Enterococcus faecalis -Currently on Ciprofloxacin 500mg PO Q12H day 10 and Ampicillin 1gm IVPB Q6H day [address] Brown consulted- help appreciated. - Patient is s/p aortofemoral angiogram via right groin with selective catherization of left femoral artery 12/17/16. - Patient for retrograde tibial posterior angiogram 12/24/[address] Brown. 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 Gaytan consulted. Podiatry plans to follow while patient is hospitalized. - Patient had TMA 10/17/[address] Gaytan. -Tramadol 25mg po tid prn pain Infectious Disease- Dr. Galindo- help appreciated. -Wound culture 12/12/16: Pseudomononas Aeruginosa, Enterococcus faecalis - Ciprofloxacin 500mg PO Q12H day 10 and - Ampicillin 1gm IVPB Q6H day 5 - Changed to Ampicillin 500mg PO Q6H (12/25/16) because patient removed IV - Discussed changing antibiotics to PO with Dr. Galindo 12/25/[address] Brown consulted- help appreciated. - Patient is s/p aortofemoral angiogram via right groin with selective catherization of left femoral artery 12/17/16. - Patient retrograde tibial posterior angiogram 12/24/[address] Brown. - Continue Plavix 75 mg PO daily - Continue with aspirin/brilinta; discussed between cardio/surgery Status: Chronic (3) Hypertension Assessment & Plan: -Hydralazine 10mg ivp q6 prn SBP > 160 -Losartan 50mg po daily -Metprolol 12.5mg po bid -Norvasc 10mg PO daily - Monitor B/P Status: Chronic (4) Bacteremia Assessment & Plan: ID consult placed- Dr. Galindo ---> help appreciated. Blood Culture showed no growth 12/19/16 Blood Cx positive for Corynebacterium on 12/11/16 X2. Continue 500mg Ciprofloxacin PO bid day 10 Continue 1gm Ampicillin IVPB Q6H day 5 Changed to Ampicillin 500mg PO Q6H (12/25/16) because patient removed IV - Discussed changing antibiotics to PO with Dr. Galindo 12/25/16 Status: Acute (5) Atelectasis of left lung Assessment & Plan: - Albuterol sulfate 2.5mg INH RQ12 Status: Acute (6) Congestive heart failure (CHF) Assessment & Plan: Cardio consult placed- Dr. Dobson- help appreciated. Consult placed for cardiac clearance prior to vascular procedure. - Myocardial Perfusion Scan showed: Inferolateral Reversible Ischemia - Patient transferred to [facility] for Cardiac Catheterization 12/20/16. - s/p Catheterization: PCI LAD, Ramus branch - per Dr. Dobson - stable for angiogram - per Dr. Dobson Continue ASA/Brilinta. cannot be held due to PCI - Hold home lasix 20 mg PO daily secondary to acute on chronic kidney injury - Continue Lopressor 12.5 mg PO BID - Continue Losartan 100 mg PO mcg PO daily - Continue Amlodipine 10 mg PO daily -CXR: No evidence of new infiltrate or consolidation in the lungs. No significant pleural effusion or pneumothorax apparent. Status: Chronic (7) Coronary artery disease Assessment & Plan: Cardio consult placed- Dr. Dobson- help appreciated. Consult placed for cardiac clearance prior to vascular procedure. Cardiac catherization performed on 12/20/16 at [facility], with initial result stating Stent in the LAD (Double Vessels disease) As per Dr. Dobson Continue with aspirin/brilinta; discussed between cardio/ surgery Aspirin 81 mg PO daily Plavix 75 mg PO daily Crestor 2.5 mg PO HS Status: Chronic (8) Hypothyroidism Assessment & Plan: -Continue Synthroid 100 mcg po AM -TSH 6.33, Free T4 0.96 Status: Chronic (9) Diabetes mellitus Assessment & Plan: -HgbA1c 7.2 -Accuchecks ACHS -RISS -Lantus 10units HS - confirmed by pharmacy Status: Chronic (10) Hypercholesteremia Assessment & Plan: -LDL 125, HDL 24, Cholesterol 187, Triglycerides 208 -Crestor 2.5mg po hs Status: Chronic (11) Acute on chronic renal insufficiency Assessment & Plan: -Improving -BUN/CR: 14/1.0 (12/14/16) - No labs this AM 12/25/16 because patient refused labs -Continue D5% Normal saline 75cc/hr IV -Nephrology, Dr. Carmona consulted. Recommends IV fluids prior to angio and close renal function follow-up post procedure -Renal US: Bilateral renal cysts, some of which are mildly complex containing calcifications and septations (see full report) -Per Dr. Carmona, may need kidney CT in future to evaluate complex cysts Status: Acute (12) Iron deficiency anemia Assessment & Plan: -Feosol 300mg po bid Status: Chronic (13) Prophylactic measure Assessment & Plan: -held anticoagulation Heparin 5000u sc q12 -Pepcid 20mg PO daily -SCD c/i -PT/OT -Heart healthy moderate consistent carb renal diet - Bedside commode -Palliative Care Consult- Full Code. Status: Acute
--- NOTE | 2016-12-25 10:57 | CP.PCM.PN ---
Subjective - Date & Time of Evaluation Date of Evaluation: 12/25/16 Time of Evaluation: 10:55 - Subjective Subjective: events noted, angiogram attempt unsuccessful no labs today pt comfortable Objective - Vital Signs/Intake and Output Vital Signs (last 24 hours): Temp Pulse Resp BP Pulse Ox 97.4 F L 62 18 142/55 L 100 12/25/16 07:50 12/25/16 09:00 12/25/16 07:50 12/25/16 07:50 12/25/16 07:50 Intake and Output: 12/25/16 12/25/16 06:59 18:59 Intake Total 820 Output Total 275 Balance 545 - Medications Medications: Current Medications Amlodipine Besylate (Norvasc) 10 mg PO DAILY [facility] Last Admin: 12/24/16 10:34 Dose: Not Given Aspirin (Aspirin Chewable) 81 mg PO DAILY [facility] Last Admin: 12/24/16 09:04 Dose: 81 mg Ciprofloxacin (Cipro) 500 mg PO BID [facility] Last Admin: 12/24/16 17:52 Dose: 500 mg Docusate Sodium (Colace) 100 mg PO BID [facility] Last Admin: 12/24/16 17:52 Dose: 100 mg Famotidine (Pepcid) 20 mg PO DAILY [facility] Last Admin: 12/24/16 10:34 Dose: Not Given Ferrous Sulfate (Feosol Liq) 300 mg PO BID [facility] Last Admin: 12/24/16 17:51 Dose: 300 mg Hydralazine HCl (Apresoline) 10 mg IVP Q6H PRN PRN Reason: Systolic Blood Pressure Last Admin: 12/16/16 14:30 Dose: 10 mg Ampicillin 1 gm/ Sodium (Chloride) 100 mls @ 100 mls/hr IVPB Q6H [facility] Last Admin: 12/25/16 04:54 Dose: 100 mls/hr Dextrose/Sodium Chloride (Dextrose 5%/0.45% Ns 1000 Ml) 1,000 mls @ 50 mls/hr IV .Q20H [facility] Last Admin: 12/23/16 22:11 Dose: 50 mls/hr Sodium Chloride (Sodium Chloride 0.9%) 1,000 mls @ 100 mls/hr IV .Q10H [facility] Last Admin: 12/24/16 16:08 Dose: 100 mls/hr Insulin Aspart (Novolog) 0 unit SC ACHS [facility] PRN Reason: Protocol Last Admin: 12/24/16 21:36 Dose: Not Given Insulin Glargine (Lantus) 5 unit SC HS [facility] Last Admin: 12/24/16 21:37 Dose: Not Given Levothyroxine Sodium (Synthroid) 100 mcg PO DAILY@0630 [facility] Last Admin: 12/25/16 06:43 Dose: 100 mcg Losartan Potassium (Cozaar) 100 mg PO DAILY [facility] Last Admin: 12/24/16 09:03 Dose: 100 mg Metoprolol Tartrate (Lopressor) 12.5 mg PO 0800,1800 [facility] Last Admin: 12/24/16 17:52 Dose: 12.5 mg Rosuvastatin Calcium (Crestor) 2.5 mg PO HS [facility] Last Admin: 12/24/16 21:37 Dose: Not Given Saccharomyces Boulardii (Florastor) 250 mg PO BID [facility] Last Admin: 12/24/16 17:52 Dose: 250 mg Ticagrelor (Brilinta) 90 mg PO BID [facility] Last Admin: 12/24/16 17:51 Dose: 90 mg Tramadol HCl (Ultram) 25 mg PO TID PRN PRN Reason: Pain, moderate (4-7) Last Admin: 12/16/16 10:17 Dose: 25 mg - Labs Labs: 12/24/16 07:16 12/24/16 07:16 PT 12.1 SECONDS (9.7-12.2) 12/24/16 07:16 INR 1.1 12/24/16 07:16 APTT 31 SECONDS (21-34) 12/16/16 13:51 - Constitutional Appears: Non-toxic, No Acute Distress, Chronically Ill - Head Exam Head Exam: NORMAL INSPECTION - Eye Exam Eye Exam: Normal appearance - ENT Exam ENT Exam: Mucous Membranes Moist, Normal Exam - Neck Exam Neck Exam: Normal Inspection - Respiratory Exam Respiratory Exam: Decreased Breath Sounds, NORMAL BREATHING PATTERN - Cardiovascular Exam Cardiovascular Exam: REGULAR RHYTHM, RRR - GI/Abdominal Exam GI & Abdominal Exam: Soft, Normal Bowel Sounds - Extremities Exam Extremities Exam: Normal Inspection Assessment and Plan (1) CKD (chronic kidney disease) stage 3, GFR 30-59 ml/min Status: Acute (2) PVD (peripheral vascular disease) Status: Chronic (3) Acute on chronic renal insufficiency Status: Acute - Assessment and Plan (Free Text) Assessment: gentle iv fluids if another angiogram planned, otherwise may dc watch daily chems. on losartan noted
[2016-12-25] MEDS: Dextrose 5%/0.45% NS 1,000 ML IV SCH (11:00)
[2016-12-25] MEDS: Sodium Chloride 0.9% 1,000 ML IV SCH ×2 (11:08→11:09)
--- NOTE | 2016-12-25 13:01 | CP.PCM.PN ---
Subjective - Date & Time of Evaluation Date of Evaluation: 12/25/16 Time of Evaluation: 10:30 - Subjective Subjective: 81 y/o male was seen and evaluated at bedside for followup of left foot TMA site nonhealing wound. Patient was resting comfortably in bed. States he has mild pain to LLE. Dressing clean, dry and intact. Patient denies any symptoms of N/V/F/SOB/chills and chest pains. Objective - Vital Signs/Intake and Output Vital Signs (last 24 hours): Temp Pulse Resp BP Pulse Ox 97.4 F L 62 18 142/55 L 100 12/25/16 07:50 12/25/16 09:00 12/25/16 07:50 12/25/16 07:50 12/25/16 07:50 Intake and Output: 12/25/16 12/25/16 06:59 18:59 Intake Total 820 Output Total 275 Balance 545 - Medications Medications: Current Medications Amlodipine Besylate (Norvasc) 10 mg PO DAILY [facility] Last Admin: 12/25/16 11:07 Dose: 10 mg Aspirin (Aspirin Chewable) 81 mg PO DAILY [facility] Last Admin: 12/25/16 11:06 Dose: 81 mg Ciprofloxacin (Cipro) 500 mg PO BID [facility] Last Admin: 12/25/16 10:05 Dose: 500 mg Docusate Sodium (Colace) 100 mg PO BID [facility] Last Admin: 12/25/16 11:07 Dose: 100 mg Famotidine (Pepcid) 20 mg PO DAILY [facility] Last Admin: 12/25/16 11:07 Dose: 20 mg Ferrous Sulfate (Feosol Liq) 300 mg PO BID [facility] Last Admin: 12/25/16 10:05 Dose: 300 mg Hydralazine HCl (Apresoline) 10 mg IVP Q6H PRN PRN Reason: Systolic Blood Pressure Last Admin: 12/16/16 14:30 Dose: 10 mg Ampicillin 1 gm/ Sodium (Chloride) 100 mls @ 100 mls/hr IVPB Q6H [facility] Last Admin: 12/25/16 11:08 Dose: Not Given Dextrose/Sodium Chloride (Dextrose 5%/0.45% Ns 1000 Ml) 1,000 mls @ 50 mls/hr IV .Q20H [facility] Last Admin: 12/23/16 22:11 Dose: 50 mls/hr Sodium Chloride (Sodium Chloride 0.9%) 1,000 mls @ 100 mls/hr IV .Q10H [facility] Last Admin: 12/25/16 11:09 Dose: Not Given Insulin Aspart (Novolog) 0 unit SC ACHS [facility] PRN Reason: Protocol Last Admin: 12/24/16 21:36 Dose: Not Given Insulin Glargine (Lantus) 5 unit SC [facility] Last Admin: 12/24/16 21:37 Dose: Not Given Levothyroxine Sodium (Synthroid) 100 mcg PO DAILY@0630 [facility] Last Admin: 12/25/16 06:43 Dose: 100 mcg Losartan Potassium (Cozaar) 100 mg PO DAILY [facility] Last Admin: 12/25/16 11:06 Dose: 100 mg Metoprolol Tartrate (Lopressor) 12.5 mg PO 0800,1800 [facility] Last Admin: 12/25/16 09:05 Dose: 12.5 mg Rosuvastatin Calcium (Crestor) 2.5 mg PO [facility] Last Admin: 12/24/16 21:37 Dose: Not Given Saccharomyces Boulardii (Florastor) 250 mg PO BID [facility] Last Admin: 12/24/16 17:52 Dose: 250 mg Ticagrelor (Brilinta) 90 mg PO BID [facility] Last Admin: 12/25/16 10:05 Dose: 90 mg Tramadol HCl (Ultram) 25 mg PO TID PRN PRN Reason: Pain, moderate (4-7) Last Admin: 12/16/16 10:17 Dose: 25 mg - Labs Labs: 12/24/16 07:16 12/24/16 07:16 PT 12.1 SECONDS (9.7-12.2) 12/24/16 07:16 INR 1.1 12/24/16 07:16 APTT 31 SECONDS (21-34) 12/16/16 13:51 - Constitutional Appears: No Acute Distress - Extremities Exam Additional comments: Left foot dressing clean, dry and intact. 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 Patient refusing dressing change at this time, dressings left intact. Vascular Surgery op note and progress note reviewed. Stable from podiatry standpoint, may be discharged home with VNA Podiatry will continue to follow while patient remains in house
--- NOTE | 2016-12-25 13:38 | CP.PCM.PN ---
Subjective - Date & Time of Evaluation Date of Evaluation: 12/25/16 Time of Evaluation: 13:37 - Subjective Subjective: Surgery: Dr. Brown Pt seen an examined. Resting comfortably in bed. No complaints Objective - Vital Signs/Intake and Output Vital Signs (last 24 hours): Temp Pulse Resp BP Pulse Ox 97.4 F L 62 18 142/55 L 100 12/25/16 07:50 12/25/16 09:00 12/25/16 07:50 12/25/16 07:50 12/25/16 07:50 Intake and Output: 12/25/16 12/25/16 06:59 18:59 Intake Total 820 Output Total 275 Balance 545 - Medications Medications: Current Medications Amlodipine Besylate (Norvasc) 10 mg PO DAILY [facility] Last Admin: 12/25/16 11:07 Dose: 10 mg Aspirin (Aspirin Chewable) 81 mg PO DAILY [facility] Last Admin: 12/25/16 11:06 Dose: 81 mg Ciprofloxacin (Cipro) 500 mg PO BID [facility] Last Admin: 12/25/16 10:05 Dose: 500 mg Docusate Sodium (Colace) 100 mg PO BID [facility] Last Admin: 12/25/16 11:07 Dose: 100 mg Famotidine (Pepcid) 20 mg PO DAILY [facility] Last Admin: 12/25/16 11:07 Dose: 20 mg Ferrous Sulfate (Feosol Liq) 300 mg PO BID [facility] Last Admin: 12/25/16 10:05 Dose: 300 mg Hydralazine HCl (Apresoline) 10 mg IVP Q6H PRN PRN Reason: Systolic Blood Pressure Last Admin: 12/16/16 14:30 Dose: 10 mg Ampicillin 1 gm/ Sodium (Chloride) 100 mls @ 100 mls/hr IVPB Q6H [facility] Last Admin: 12/25/16 11:08 Dose: Not Given Dextrose/Sodium Chloride (Dextrose 5%/0.45% Ns 1000 Ml) 1,000 mls @ 50 mls/hr IV .Q20H [facility] Last Admin: 12/25/16 11:00 Dose: Not Given Sodium Chloride (Sodium Chloride 0.9%) 1,000 mls @ 100 mls/hr IV .Q10H [facility] Last Admin: 12/25/16 11:09 Dose: Not Given Insulin Aspart (Novolog) 0 unit SC ACHS [facility] PRN Reason: Protocol Last Admin: 12/25/16 11:45 Dose: Not Given Insulin Glargine (Lantus) 5 unit SC HS [facility] Last Admin: 12/24/16 21:37 Dose: Not Given Levothyroxine Sodium (Synthroid) 100 mcg PO DAILY@0630 [facility] Last Admin: 12/25/16 06:43 Dose: 100 mcg Losartan Potassium (Cozaar) 100 mg PO DAILY [facility] Last Admin: 12/25/16 11:06 Dose: 100 mg Metoprolol Tartrate (Lopressor) 12.5 mg PO 0800,1800 [facility] Last Admin: 12/25/16 09:05 Dose: 12.5 mg Rosuvastatin Calcium (Crestor) 2.5 mg PO HS [facility] Last Admin: 12/24/16 21:37 Dose: Not Given Saccharomyces Boulardii (Florastor) 250 mg PO BID [facility] Last Admin: 12/25/16 10:05 Dose: 250 mg Ticagrelor (Brilinta) 90 mg PO BID [facility] Last Admin: 12/25/16 10:05 Dose: 90 mg Tramadol HCl (Ultram) 25 mg PO TID PRN PRN Reason: Pain, moderate (4-7) Last Admin: 12/16/16 10:17 Dose: 25 mg - Labs Labs: 12/24/16 07:16 12/24/16 07:16 PT 12.1 SECONDS (9.7-12.2) 12/24/16 07:16 INR 1.1 12/24/16 07:16 APTT 31 SECONDS (21-34) 12/16/16 13:51 - Constitutional Appears: Non-toxic, No Acute Distress - Head Exam Head Exam: ATRAUMATIC, NORMOCEPHALIC - Eye Exam Eye Exam: EOMI - ENT Exam ENT Exam: Mucous Membranes Moist - Neck Exam Neck Exam: Full ROM - Respiratory Exam Respiratory Exam: NORMAL BREATHING PATTERN. absent: Accessory Muscle Use, Respiratory Distress - GI/Abdominal Exam GI & Abdominal Exam: Soft. absent: Tenderness - Extremities Exam Additional comments: LLE, dressing in place, C/D/I x 2 - Neurological Exam Neurological Exam: Alert, Awake, Oriented x3 Assessment and Plan - Assessment and Plan (Free Text) Assessment: 81M w. 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
[2016-12-25] MEDS: Albuterol 0.083% Inhal Sol (2.5 mg/3 mL) UD INH SCH (21:39)
[2016-12-25] MEDS: (Lantus) Insulin Glargine, Recombinant SC SCH (22:27)
[2016-12-25] MEDS: Rosuvastatin Calcium 2.5 mg Tab PO SCH (22:27)
[2016-12-26] MEDS: Levothyroxine 100 MCG TAB PO SCH (05:33)
[2016-12-26] MEDS: Dextrose 5%/0.45% NS 1,000 ML IV SCH (07:15)
[2016-12-26] MEDS: Albuterol 0.083% Inhal Sol (2.5 mg/3 mL) UD INH SCH ×2 (08:00→19:31)
[2016-12-26 08:04] LABS: BASO # 0.1 K/uL (0.0-0.2); BASO % 0.8 % (0.0-2.0); EOS # 0.6 K/uL (0.0-0.7); EOS % 8.5 % (0.0-4.0); HEMATOCRIT 35.7 % (35.0-51.0); LYMPH # 1.8 K/uL (1.0-4.3); LYMPH % 26.4 % (20.0-40.0); MEAN CELL VOLUME 75.5 fL (80.0-94.0); MEAN CORPUSCULAR HEMOGLOBIN 24.1 pg (27.0-31.0); MEAN CORPUSCULAR HGB CONC 31.9 g/dL (33.0-37.0); MEAN PLATELET VOLUME 8.1 fL (7.2-11.7); MONO # 0.8 K/uL (0.0-0.8); MONO % 12.1 % (0.0-10.0); NRBC % 0.1 % (0.0-2.0); RED CELL DISTRIBUTION WIDTH 19.4 % (11.5-14.5); WHITE BLOOD COUNT 6.9 K/uL (4.8-10.8)
[2016-12-26 08:17] VITALS: RESP 18
[2016-12-26] MEDS: (Novolog) Insulin Aspart, Recombinant 100 u/ml 10 ml vial SC SCH (08:30)
[2016-12-26 08:33] LABS: CHLORIDE 105 mmol/L (98-107); POTASSIUM 3.7 mmol/L (3.6-5.2); SODIUM 139 mmol/L (132-148)
[2016-12-26 08:35] LABS: AST/SGOT 26 U/L (17-59); BILIRUBIN,TOTAL 0.6 mg/dL (0.2-1.3); CARBON DIOXIDE 23 mmol/L (22-30); GFR AFRICAN-AMERICAN > 60
[2016-12-26 08:36] LABS: ALB/GLOB RATIO 0.8 (1.0-2.1); ALKALINE PHOSPHATASE 117 U/L (38-126); ALT/SGPT 14 U/L (21-72); BLOOD UREA NITROGEN 15 mg/dL (9-20); CALCIUM 9.1 mg/dl (8.6-10.4); GLUCOSE,RANDOM 135 mg/dL (75-110); PHOSPHOROUS 3.7 mg/dL (2.5-4.5); TOTAL PROTEIN 7.7 g/dL (6.3-8.3)
[2016-12-26 08:37] LABS: MAGNESIUM 1.9 mg/dL (1.6-2.3)
[2016-12-26] MEDS: Saccharomyces Boulardi 250 mg Cap PO SCH ×2 (11:27→17:53)
[2016-12-26] MEDS: Ferrous Sulfate 300 mg/5 mL Liq UD PO SCH ×2 (11:27→17:53)
--- NOTE | 2016-12-26 12:30 | CP.PCM.PN ---
Subjective - Date & Time of Evaluation Date of Evaluation: 12/26/16 Time of Evaluation: 11:30 - Subjective Subjective: 81 y/o male was seen and evaluated at bedside for followup of left foot TMA site nonhealing wound. Patient was resting comfortably in bed. Denies pain to LLE. Dressing clean, dry and intact. Patient denies any symptoms of N/V/F/SOB/ chills and chest pains. Objective - Vital Signs/Intake and Output Vital Signs (last 24 hours): Temp Pulse Resp BP Pulse Ox 97.7 F 78 18 161/62 H 100 12/26/16 07:15 12/26/16 07:15 12/26/16 07:15 12/26/16 07:15 12/26/16 07:15 Intake and Output: 12/26/16 12/26/16 06:59 18:59 Intake Total 120 Output Total 300 Balance -180 - Medications Medications: Current Medications Albuterol Sulfate (Albuterol 0.083% Inhal Joya (2.5 Mg/3 Ml) Ud) 2.5 mg INH RQ12 [facility] Stop: 12/28/16 20:01 Last Admin: 12/26/16 08:00 Dose: Not Given Amlodipine Besylate (Norvasc) 10 mg PO DAILY [facility] Last Admin: 12/26/16 11:28 Dose: 10 mg Ampicillin (Ampicillin) 500 mg PO Q6H [facility] Last Admin: 12/26/16 12:12 Dose: 500 mg Aspirin (Aspirin Chewable) 81 mg PO DAILY [facility] [place] Last Admin: 12/26/16 11:27 Dose: 81 mg Ciprofloxacin (Cipro) 500 mg PO BID [facility] Last Admin: 12/26/16 11:28 Dose: 500 mg Docusate Sodium (Colace) 100 mg PO BID [facility] Last Admin: 12/26/16 11:28 Dose: 100 mg Famotidine (Pepcid) 20 mg PO DAILY [facility] [place] Last Admin: 12/26/16 11:29 Dose: 20 mg Ferrous Sulfate (Feosol Liq) 300 mg PO BID [facility] [place] Last Admin: 12/26/16 11:27 Dose: 300 mg Heparin Sodium (Porcine) (Heparin) 5,000 units SC Q8 [facility] Hydralazine HCl (Apresoline) 10 mg IVP Q6H PRN PRN Reason: Systolic Blood Pressure Last Admin: 12/16/16 14:30 Dose: 10 mg Dextrose/Sodium Chloride (Dextrose 5%/0.45% Ns 1000 Ml) 1,000 mls @ 50 mls/hr IV .Q20H [facility] [place] Last Admin: 12/26/16 07:15 Dose: Not Given Insulin Aspart (Novolog) 0 unit SC ACHS [facility] PRN Reason: Protocol Last Admin: 12/26/16 08:30 Dose: Not Given Insulin Glargine (Lantus) 10 unit SC [facility] Levothyroxine Sodium (Synthroid) 100 mcg PO DAILY@0630 [facility] Last Admin: 12/26/16 05:33 Dose: 100 mcg Losartan Potassium (Cozaar) 100 mg PO DAILY [facility] Last Admin: 12/26/16 11:28 Dose: 100 mg Metoprolol Tartrate (Lopressor) 12.5 mg PO 0800,1800 [facility] Last Admin: 12/26/16 08:15 Dose: 12.5 mg Rosuvastatin Calcium (Crestor) 2.5 mg PO HS [facility] Last Admin: 12/25/16 22:27 Dose: 2.5 mg Saccharomyces Boulardii (Florastor) 250 mg PO BID [facility] Last Admin: 12/26/16 11:27 Dose: 250 mg Ticagrelor (Brilinta) 90 mg PO BID [facility] Last Admin: 12/26/16 11:28 Dose: 90 mg Tramadol HCl (Ultram) 25 mg PO TID PRN PRN Reason: Pain, moderate (4-7) Last Admin: 12/16/16 10:17 Dose: 25 mg - Labs Labs: 12/26/16 07:52 12/26/16 07:52 PT 12.1 SECONDS (9.7-12.2) 12/24/16 07:16 INR 1.1 12/24/16 07:16 APTT 31 SECONDS (21-34) 12/16/16 13:51 Assessment and Plan - Assessment and Plan (Free Text) Assessment: 81 y/o male patient with 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 Discussed with Dr. Gaytan Dressing changed with betadine, DSD, kerlix Vascular Surgery op note and progress note reviewed. Stable from podiatry standpoint, may be discharged home with VNA. No surgical intervention planned, continue local wound care. Podiatry will continue to follow while patient remains in house
--- NOTE | 2016-12-26 14:25 | CP.PCM.PN ---
Subjective - Date & Time of Evaluation Date of Evaluation: 12/26/16 Time of Evaluation: 14:23 - Subjective Subjective: Comfortable in bed Angio not done Renal function stable no new complaints Objective - Vital Signs/Intake and Output Vital Signs (last 24 hours): Temp Pulse Resp BP Pulse Ox 97.7 F 78 18 161/62 H 100 12/26/16 07:15 12/26/16 07:15 12/26/16 07:15 12/26/16 07:15 12/26/16 07:15 Intake and Output: 12/26/16 12/26/16 06:59 18:59 Intake Total 120 Output Total 300 Balance -180 - Medications Medications: Current Medications Albuterol Sulfate (Albuterol 0.083% Inhal Joya (2.5 Mg/3 Ml) Ud) 2.5 mg INH RQ12 [facility] Stop: 12/28/16 20:01 Last Admin: 12/26/16 08:00 Dose: Not Given Amlodipine Besylate (Norvasc) 10 mg PO DAILY [facility] Last Admin: 12/26/16 11:28 Dose: 10 mg Ampicillin (Ampicillin) 500 mg PO Q6H [facility] Last Admin: 12/26/16 12:12 Dose: 500 mg Aspirin (Aspirin Chewable) 81 mg PO DAILY [facility] Last Admin: 12/26/16 11:27 Dose: 81 mg Ciprofloxacin (Cipro) 500 mg PO BID [facility] Last Admin: 12/26/16 11:28 Dose: 500 mg Docusate Sodium (Colace) 100 mg PO BID [facility] Last Admin: 12/26/16 11:28 Dose: 100 mg Famotidine (Pepcid) 20 mg PO DAILY [facility] Last Admin: 12/26/16 11:29 Dose: 20 mg Ferrous Sulfate (Feosol Liq) 300 mg PO BID [facility] Last Admin: 12/26/16 11:27 Dose: 300 mg Heparin Sodium (Porcine) (Heparin) 5,000 units SC Q8 [facility] Hydralazine HCl (Apresoline) 10 mg IVP Q6H PRN PRN Reason: Systolic Blood Pressure Last Admin: 12/16/16 14:30 Dose: 10 mg Dextrose/Sodium Chloride (Dextrose 5%/0.45% Ns 1000 Ml) 1,000 mls @ 50 mls/hr IV .Q20H [facility] Last Admin: 12/26/16 07:15 Dose: Not Given Insulin Aspart (Novolog) 0 unit SC [facility] PRN Reason: Protocol Last Admin: 12/26/16 08:30 Dose: Not Given Insulin Glargine (Lantus) 10 unit SC [facility] Levothyroxine Sodium (Synthroid) 100 mcg PO DAILY@0630 [facility] Last Admin: 12/26/16 05:33 Dose: 100 mcg Losartan Potassium (Cozaar) 100 mg PO DAILY [facility] Last Admin: 12/26/16 11:28 Dose: 100 mg Metoprolol Tartrate (Lopressor) 12.5 mg PO 0800,1800 [facility] Last Admin: 12/26/16 08:15 Dose: 12.5 mg Rosuvastatin Calcium (Crestor) 2.5 mg PO HS [facility] Last Admin: 12/25/16 22:27 Dose: 2.5 mg Saccharomyces Boulardii (Florastor) 250 mg PO BID [facility] Last Admin: 12/26/16 11:27 Dose: 250 mg Ticagrelor (Brilinta) 90 mg PO BID [facility] Last Admin: 12/26/16 11:28 Dose: 90 mg Tramadol HCl (Ultram) 25 mg PO TID PRN PRN Reason: Pain, moderate (4-7) Last Admin: 12/16/16 10:17 Dose: 25 mg - Labs Labs: 12/26/16 07:52 12/26/16 07:52 PT 12.1 SECONDS (9.7-12.2) 12/24/16 07:16 INR 1.1 12/24/16 07:16 APTT 31 SECONDS (21-34) 12/16/16 13:51 - Constitutional Appears: No Acute Distress, Chronically Ill - Head Exam Head Exam: ATRAUMATIC, NORMAL INSPECTION - Eye Exam Eye Exam: EOMI, Normal appearance - Neck Exam Neck Exam: Normal Inspection. absent: Tenderness - Respiratory Exam Respiratory Exam: Clear to Ausculation Bilateral, NORMAL BREATHING PATTERN - Cardiovascular Exam Cardiovascular Exam: REGULAR RHYTHM, +S1 - GI/Abdominal Exam GI & Abdominal Exam: Soft. absent: Tenderness - Extremities Exam Extremities Exam: Normal Inspection. absent: Tenderness - Neurological Exam Neurological Exam: Alert, CN II-XII Intact - Skin Skin Exam: Dry, Warm Assessment and Plan (1) CKD (chronic kidney disease) stage 3, GFR 30-59 ml/min Status: Acute (2) PVD (peripheral vascular disease) Status: Chronic (3) Diabetes mellitus Status: Chronic - Assessment and Plan (Free Text) Plan: Continue to monitor renal function, HTN Monitor TMA site
[2016-12-26 15:52] VITALS: BP 122/59; PULSE 68; TEMP 98.1; O2SAT 98
--- NOTE | 2016-12-26 16:28 | CP.PCM.DIS ---
Provider - Provider Date of Admission: 12/11/16 22:49 Attending physician: Job Sands MD Time Spent in preparation of Discharge (in minutes): 40 Diagnosis - Discharge Diagnosis (1) PVD (peripheral vascular disease) Status: Chronic Comment: See hospital summary for further details. 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 (3) Hypertension Status: Chronic Priority: Low Comment: See hospital summary for further details. (4) Bacteremia Status: Acute Comment: See hospital summary for further details. (5) Atelectasis of left lung Status: Resolved Comment: See hospital summary for further details. (6) Congestive heart failure (CHF) Status: Chronic Comment: See hospital summary for further details. (7) Coronary artery disease Status: Chronic Comment: See hospital summary for further details. (8) Hypothyroidism Status: Chronic Comment: See hospital summary for further details. (9) Diabetes mellitus Status: Chronic Priority: Medium Comment: See hospital summary for further details. (10) Hypercholesteremia Status: Chronic Comment: See hospital summary for further details. (11) Acute on chronic renal insufficiency Status: Chronic Comment: See hospital summary for further details. (12) Iron deficiency anemia Status: Chronic Comment: See hospital summary for further details. Hospital Course - Lab Results Lab Results: Micro Results 12/19/16 13:20 Blood Blood Culture - Final NO GROWTH AFTER 5 DAYS 12/19/16 13:20 Blood Gram Stain - Final TEST NOT PERFORMED 12/12/16 21:00 Foot - Left Gram Stain - Final 12/12/16 21:00 Foot - Left Wound Culture - Final Pseudomonas Aeruginosa Enterococcus Faecalis 12/11/16 23:00 Blood-Venous Blood Culture - Final Corynebacterium Species 12/11/16 23:00 Blood-Venous Gram Stain - Final Most Recent Lab Values WBC 6.9 K/uL (4.8-10.8) 12/26/16 07:52 RBC 4.72 Mil/uL (4.40-5.90) 12/26/16 07:52 Hgb 11.4 g/dL (12.0-18.0) L 12/26/16 07:52 Hct 35.7 % (35.0-51.0) 12/26/16 07:52 MCV 75.5 fL (80.0-94.0) L 12/26/16 07:52 MCH 24.1 pg (27.0-31.0) L 12/26/16 07:52 MCHC 31.9 g/dL (33.0-37.0) L 12/26/16 07:52 RDW 19.4 % (11.5-14.5) H 12/26/16 07:52 Plt Count 194 K/uL (130-400) 12/26/16 07:52 MPV 8.1 fL (7.2-11.7) 12/26/16 07:52 Neut % (Auto) 52.2 % (50.0-75.0) 12/26/16 07:52 Lymph % (Auto) 26.4 % (20.0-40.0) 12/26/16 07:52 [place] % (Auto) 12.1 % (0.0-10.0) H 12/26/16 07:52 Eos % (Auto) 8.5 % (0.0-4.0) H 12/26/16 07:52 Baso % (Auto) 0.8 % (0.0-2.0) 12/26/16 07:52 Neut # 3.6 K/uL (1.8-7.0) 12/26/16 07:52 Lymph # 1.8 K/uL (1.0-4.3) 12/26/16 07:52 [place] # 0.8 K/uL (0.0-0.8) 12/26/16 07:52 Eos # 0.6 K/uL (0.0-0.7) 12/26/16 07:52 Baso # 0.1 K/uL (0.0-0.2) 12/26/16 07:52 PT 12.1 SECONDS (9.7-12.2) 12/24/16 07:16 INR 1.1 12/24/16 07:16 APTT 31 SECONDS (21-34) 12/16/16 13:51 Sodium 139 mmol/L (132-148) 12/26/16 07:52 Potassium 3.7 mmol/L (3.6-5.2) 12/26/16 07:52 Chloride 105 mmol/L (98-107) 12/26/16 07:52 Carbon Dioxide 23 mmol/L (22-30) 12/26/16 07:52 Anion Gap 15 (10-20) 12/26/16 07:52 BUN 15 mg/dL (9-20) 12/26/16 07:52 Creatinine 0.9 MG/DL (0.8-1.5) 12/26/16 07:52 Est GFR ( Amer) > 60 12/26/16 07:52 Est GFR (Non-Af Amer) > 60 12/26/16 07:52 POC Glucose (mg/dL) 188 mg/dL (65-110) H 12/26/16 12:46 Random Glucose 135 mg/dL (75-110) H 12/26/16 07:52 Hemoglobin A1c 7.2 % (4.2-6.5) H D 12/12/16 09:25 Calcium 9.1 mg/dl (8.6-10.4) 12/26/16 07:52 Phosphorus 3.7 mg/dL (2.5-4.5) 12/26/16 07:52 Magnesium 1.9 mg/dL (1.6-2.3) 12/26/16 07:52 Total Bilirubin 0.6 mg/dL (0.2-1.3) 12/26/16 07:52 AST 26 U/L (17-59) 12/26/16 07:52 ALT 14 U/L (21-72) L D 12/26/16 07:52 Alkaline Phosphatase 117 U/L (38-126) 12/26/16 07:52 Total Protein 7.7 g/dL (6.3-8.3) 12/26/16 07:52 Albumin 3.4 g/dL (3.5-5.0) L 12/26/16 07:52 Globulin 4.3 gm/dL (2.2-3.9) H 12/26/16 07:52 Albumin/Globulin Ratio 0.8 (1.0-2.1) L 12/26/16 07:52 Triglycerides 208 mg/dL (0-149) H 12/12/16 09:25 Cholesterol 187 mg/dL (0-199) 12/12/16 09:25 LDL Cholesterol Direct 125 mg/dL (0-129) 12/12/16 09:25 HDL Cholesterol 24 mg/dL (30-70) L 12/12/16 09:25 Free T4 0.96 ng/dL (0.78-2.19) 12/12/16 09:25 TSH 3rd Generation 6.33 mIU/L (0.46-4.68) H 12/12/16 09:25 Urine Color Yellow (YELLOW) 12/13/16 13:41 Urine Clarity Clear (Clear) 12/13/16 13:41 Urine pH 7.0 (5.0-8.0) 12/13/16 13:41 Ur Specific [place] 1.039 (1.003-1.030) H 12/13/16 13:41 Urine Protein 1+ mg/dL (NEGATIVE) H 12/13/16 13:41 Urine Glucose (UA) Normal mg/dL (Normal) 12/13/16 13:41 Urine Ketones Negative mg/dL (NEGATIVE) 12/13/16 13:41 Urine Blood Negative (NEGATIVE) 12/13/16 13:41 Urine Nitrate Negative (NEGATIVE) 12/13/16 13:41 Urine Bilirubin Negative (NEGATIVE) 12/13/16 13:41 Urine Urobilinogen Normal mg/dL (0.2-1.0) 12/13/16 13:41 Ur Leukocyte Esterase Neg Jcarlos/uL (Negative) 12/13/16 13:41 Urine WBC (Auto) 1 /hpf (0-5) 12/13/16 13:41 Urine RBC (Auto) 1 /hpf (0-3) 12/13/16 13:41 Ur Squamous Epith Cells < 1 /hpf (0-5) 12/13/16 13:41 Urine Bacteria Rare (<OCC) 12/13/16 13:41 U Random Total Protein 19.0 mg/dL (0.0-12.0) H 12/14/16 22:30 Urine Collection Time 24 HRS 12/14/16 22:34 Urine Total Volume 600 mL 12/14/16 22:34 Ur Sodium 24 Hour 52.8 mmol/L (40-220) 12/14/16 22:34 Blood Type B POSITIVE 12/19/16 17:38 Antibody Screen Negative 12/19/16 17:38 - Hospital Course Hospital Course: 81 year old male PMHx of CAD, CHF, DMII, HTN, hyperlipidemia, arthritis, and hypothyroidism sent in by Dr. Gaytan for nonhealing left MTA. Patient was previously admitted 10/07-10/19 for left foot gangrene and had an angiogram that showed aortofemoral angiogram via right groin, selective angiogram left femoral artery; pathway atherectomy; 40% proximal sfa occlusion and 100% mid and distal sfa occlusion. An arterial doppler done on previous visit showed Occluded left posterior tibial artery; No flow detected throughout the vessel; Continuous monophasic waveforms, beginning at left superficial femoral artery level; Calcific plaques noted throughout bilateral lower extremities; Slightly increased velocities due to vessel narrowing; No evidence of arterial occlusions of bilateral extremity arteries above the knee. Patient was on IV antibiotics throughout the hospital course and he received a transmetatarsal amputation of the left foot on 10/18 and was discharged to [facility] on 10/19 with a PICC line for IV Abx. Patient was seen today by Dr. Gaytan for transient tarsal flap that was not healing who decided to send patient in for evaluation by vascular surgeon Dr. Brown. Patient denies any pain in his left foot and noticed some serosanguinous drainage but no purulent drainage. Patient denied any pain in the foot and states he uses a walker to walk but usually keeps his foot raised. He denied any fever, chills, diaphoresis, weakness, headache, dizziness, lightheadedness, change in vision, change in hearing, sore throat, dysphagia, chest pain, palpitations, SOB, cough, abdominal pain, nausea, vomiting, bowel/ bladder complaints, pain/swelling in his legs bilaterally, back pain, rash, easy bruising, easy bleeding, travel, sick contacts, recent illnesses, change in weight/appetite. Patient was admitted to inpatient. Podiatry Dr. Gaytan consulted. Podiatry plans to follow while patient is hospitalized. - Patient had TMA 10/17/[address] Gaytan[address] Vascular Surgeon Dr. Brown was consulted on the case. Per surgical workup: - Patient is s/p aortofemoral angiogram via right groin with selective catherization of left femoral artery 12/17/16. - Patient retrograde tibial posterior angiogram 12/24/[address] Brown. - Continue with aspirin/brilinta; discussed between cardio/surgery Cardiology (Dr. Dobson) was consulted on the case. Per cardiac workup, patient completed: - CHF NYHA Class I - Myocardial Perfusion Scan showed: Inferolateral Reversible Ischemia - Patient transferred to [facility] for Cardiac Catheterization 12/20/16 which showed PCI LAD, Ramus branch Infectious Disease (Dr. Galindo) was consulted on the case. Wound culture 12/12/16: Pseudomononas Aeruginosa, Enterococcus faecalis Blood Cx positive for Corynebacterium on 12/11/16 X2. - Ciprofloxacin 500mg PO Q12H day 1 - Ampicillin 500mg PO Q6H Patient medically stable for discharge. Patient to follow up with vascular surgery and podiatry in regards to further management of amputation site. Patient to complete: per infectious disease. Patient to resume home care services for management of PVD, diabetes, CHF. Patient stable for discharge per Dr. Galindo. Patient should resume all home medications. Patient should additionally take the medications listed below as prescribed Norvasc 10mg PO daily, Aspirin 81mg daily, Crestor 2.5mg PO HS; Metoprolol 12.5mg PO BID, Levothyroxine 100mcg PO daily; Ciprofloxacin 500mg PO BID for 5 weeks; Ampicillin 500mg PO Q6H for 5 weeks. Patient should make an appointment and follow up with PMD Dr. Sam within one week. Patient should also follow up with podiatry Dr. Gaytan within 14 days. Patient should return to ED immediately if symptoms return or worsen. Instructions discussed with patient who understood and agreed. This is a summary of patient's hospitalization please refer to EMR for further details of the record. Discharge Exam - Head Exam Head Exam: ATRAUMATIC, NORMAL INSPECTION - Eye Exam Eye Exam: Normal appearance - ENT Exam ENT Exam: Mucous Membranes Moist - Respiratory Exam Respiratory Exam: Clear to PA & Lateral, NORMAL BREATHING PATTERN. absent: Rales, Rhonchi, Wheezes, Respiratory Distress, Stridor - Cardiovascular Exam Cardiovascular Exam: REGULAR RHYTHM, RRR, +S1, +S2 - GI/Abdominal Exam GI & Abdominal Exam: Normal Bowel Sounds, Soft. absent: Tenderness - Extremities Exam Extremities exam: normal inspection - Neurological Exam Neurological exam: Alert Additional comments: oriented to person and place - Psychiatric Exam Psychiatric exam: Normal Mood - Skin Skin Exam: Dry, Intact, Warm Discharge Plan - Discharge Medications Prescriptions: Ampicillin 500 mg PO Q6H #140 cap Ciprofloxacin [Cipro] 500 mg PO BID #70 tab Furosemide [Lasix] 20 mg PO DAILY #30 tablet Levothyroxine [Synthroid] 100 mcg PO DAILY@0630 #30 tab Losartan [Cozaar] 100 mg PO DAILY #30 tab Metoprolol Tartrate [Lopressor] 12.5 mg PO BID #60 tab Ticagrelor [Brilinta] 90 mg PO BID #60 tab - Follow Up Plan Condition: FAIR Disposition: HOME/ ROUTINE Instructions: Heart Failure (DC), Coronary Artery Disease (DC), Chronic Kidney Disease (DC), Heart Healthy Diet (DC), Transmetatarsal Amputation (DC), Diabetic Foot Care (DC), Peripheral Vascular Disease (DC), Basic Carbohydrate Counting (DC), Meal Planning with the Plate Method (DC), Meal Planning with Diabetes Exchanges (DC) Additional Instructions: Patient medically stable for discharge. Patient to follow up with vascular surgery and podiatry in regards to further management of amputation site. Patient to complete: per infectious disease. Patient stable for discharge per Dr. Galindo. Patient should resume all home medications. Patient should additionally take the medications listed below as prescribed Norvasc 10mg PO daily, Aspirin 81mg daily, Crestor 2.5mg PO HS; Metoprolol 12.5mg PO BID, Levothyroxine 100mcg PO daily; Ciprofloxacin 500mg PO BID for 5 weeks; Ampicillin 500mg PO Q6H for 5 weeks. Patient should make an appointment and follow up with PMD Dr. Sam within one week. Patient should also follow up with podiatry Dr. Gaytan within 14 days. Patient should return to ED immediately if symptoms return or worsen. Instructions discussed with patient who understood and agreed. Referrals: Chilango Gaytan DPM [Staff Provider] -
[2016-12-26] MEDS ORDERED: (Lantus) Insulin Glargine, Recombinant SC SCH (22:00)
== END 2016-12-26 21:28 | disposition home or self-care (01) | DRG 247 ==
LOC: C.ER 18:03 → C.9E 22:49 → C.6T 12-12 01:56
PROVIDERS: ADMIT Internal Medicine; ATTEND Internal Medicine
PROC: 027035Z Dilation of Coronary Artery, One Artery with Two Drug-eluting Intraluminal Devices, Percutaneous Approach (ICD-10-PCS; principal; 2016-12-20)
PROC: 4A023N7 Measurement of Cardiac Sampling and Pressure, Left Heart, Percutaneous Approach (ICD-10-PCS; 2016-12-20)
PROC: B201YZZ Plain Radiography of Multiple Coronary Arteries using Other Contrast (ICD-10-PCS; 2016-12-20)
PROC: B205YZZ Plain Radiography of Left Heart using Other Contrast (ICD-10-PCS; 2016-12-20)
PROC: B40GYZZ Plain Radiography of Left Lower Extremity Arteries using Other Contrast (ICD-10-PCS; 2016-12-24)
DX: I70.245 Atherosclerosis of native arteries of left leg with ulceration of other part of foot (principal); N17.9 Acute kidney failure, unspecified; R78.81 Bacteremia; T87.44 Infection of amputation stump, left lower extremity; F03.90 Unspecified dementia, unspecified severity, without behavioral disturbance, psychotic disturbance, mood disturbance, and anxiety; I13.0 Hypertensive heart and chronic kidney disease with heart failure and stage 1 through stage 4 chronic kidney disease, or unspecified chronic kidney disease; I50.9 Heart failure, unspecified; N28.1 Cyst of kidney, acquired; I25.10 Atherosclerotic heart disease of native coronary artery without angina pectoris; E11.22 Type 2 diabetes mellitus with diabetic chronic kidney disease; E11.621 Type 2 diabetes mellitus with foot ulcer; L97.429 Non-pressure chronic ulcer of left heel and midfoot with unspecified severity; E03.9 Hypothyroidism, unspecified; E78.5 Hyperlipidemia, unspecified; M19.90 Unspecified osteoarthritis, unspecified site; Z87.891 Personal history of nicotine dependence; Z86.73 Personal history of transient ischemic attack (TIA), and cerebral infarction without residual deficits; N18.9 Chronic kidney disease, unspecified; Z79.4 Long term (current) use of insulin; Y83.5 Amputation of limb(s) as the cause of abnormal reaction of the patient, or of later complication, without mention of misadventure at the time of the procedure; D50.9 Iron deficiency anemia, unspecified

== ENCOUNTER 2017-05-21 07:31 | Day surgery (SDC) | payer MEDICARE, MEDICAID ==
[2017-05-21 07:32] VITALS: BMI 33.4
[2017-05-21 08:32] LABS: BASO # 0.1 K/uL (0.0-0.2); BASO % 1.4 % (0.0-2.0); EOS # 0.3 K/uL (0.0-0.7); EOS % 3.6 % (0.0-4.0); HEMATOCRIT 32.1 % (35.0-51.0); LYMPH # 2.2 K/uL (1.0-4.3); LYMPH % 30.8 % (20.0-40.0); MEAN CELL VOLUME 72.9 fL (80.0-94.0); MEAN CORPUSCULAR HEMOGLOBIN 23.4 pg (27.0-31.0); MEAN CORPUSCULAR HGB CONC 32.2 g/dL (33.0-37.0); MEAN PLATELET VOLUME 8.3 fL (7.2-11.7); MONO % 13.8 % (0.0-10.0); NRBC % 0.1 % (0.0-2.0); RED CELL DISTRIBUTION WIDTH 17.1 % (11.5-14.5); WHITE BLOOD COUNT 7.2 K/uL (4.8-10.8)
[2017-05-21 08:36] LABS: INR 1.2
[2017-05-21 08:54] LABS: BILIRUBIN,TOTAL 0.9 mg/dL (0.2-1.3); CALCIUM 8.6 mg/dl (8.6-10.4); GFR AFRICAN-AMERICAN > 60; GLUCOSE,RANDOM 94 mg/dL (75-110); TOTAL PROTEIN 8.1 g/dL (6.3-8.3)
--- NOTE | 2017-05-21 08:54 | C.PDOC ---
History Of Present Illness 81 year old male with a history of osteomyelitis and Diabetes was sent to the ED by Dr. Brown for evaluation of PICC line and admission for Portacath insertion. Patient has pulled out the PICC line. Patient denies any weakness, numbness, chest pain, shortness of breath, or other complaints at this time. Time Seen by Provider: 05/21/17 07:54 Chief Complaint (Nursing): Vascular Access Device Problem History Per: Patient History/Exam Limitations: no limitations Onset/Duration Of Symptoms: Hrs Current Symptoms Are (Timing): Still Present Reports Recently: Treated By A Physician Recent travel outside of the [place]: No Additional History Per: Prior Records Past Medical History Reviewed: Historical Data, Nursing Documentation, Vital Signs Vital Signs: Last Vital Signs Temp 98.6 F 05/21/17 10:38 Pulse 64 05/21/17 10:38 Resp 18 05/21/17 10:38 BP 116/64 05/21/17 10:38 Pulse Ox 97 05/21/17 12:00 - Medical History PMH: Arthritis, CAD, CHF, Diabetes, HTN, Hypercholesterolemia, Hypothyroidism Surgical History: Cholecystectomy - [facility] Procedures ARTHROCENTESIS (04/20/14) CENTRAL VENOUS CATHETER PLACEMENT WITH GUIDANCE (06/20/14) CYSTOSCOPY NEC (01/19/14) DETACHMENT AT LEFT FOOT, PARTIAL 3RD RAY, OPEN APPROACH (10/07/16) DETACHMENT AT LEFT FOOT, PARTIAL 4TH RAY, OPEN APPROACH (10/07/16) DILATION OF 1 COR ART WITH 2 DRUG-ELUT, PERC APPROACH (12/11/16) DILATION OF L FEM ART WITH 2 DRUG-ELUT, PERC APPROACH (10/07/16) EXTIRPATION OF MATTER FROM L FEM ART, PERC APPROACH (10/07/16) FLUOROSCOPY OF SUPERIOR VENA CAVA, GUIDANCE (05/08/17) INSERTION OF ENDOTRACHEAL AIRWAY INTO TRACHEA, VIA OPENING (08/01/15) INSERTION OF INFUSION DEV INTO SUP VENA CAVA, PERC APPROACH (05/08/17) INTRAOPER CHOLANGIOGRAM (09/30/14) INTRODUCE OTH ANTI-INFECT IN CENTRAL VEIN, PERC (05/08/17) LAPAROSCOP LYSIS-PERITONEAL ADHES (09/30/14) LAPAROSCOPIC CHOLECYSTECTOMY (09/30/14) MEASURE OF CARDIAC SAMPL & PRESSURE, L HEART, PERC APPROACH (12/11/16) PERC HEPAT CHOLANGIOGRAM (04/20/14) PERCUTAN ASPIRATION GB (07/14/14) PLAIN RADIOGRAPHY OF L LOW EXTREM ART USING OTH CONTRAST (12/11/16) PLAIN RADIOGRAPHY OF LEFT HEART USING OTHER CONTRAST (12/11/16) PLAIN RADIOGRAPHY OF MULT COR ART USING OTH CONTRAST (12/11/16) REMOV CHOLECYSTOST TUBE (06/03/14) RESPIRATORY VENTILATION, 24-96 CONSECUTIVE HOURS (08/01/15) TRANSURETHRAL PROSTATECTOMY ([place]) (01/19/14) ULTRASONOGRAPHY OF SUPERIOR VENA CAVA, GUIDANCE (05/08/17) VACCINATION NEC (11/09/14) VENOUS CATHETERIZATION NEC (08/25/14) Family History: States: Unknown Family Hx - Social History Hx Tobacco Use: Yes Hx Alcohol Use: No Hx Substance Use: No - Immunization History Hx Tetanus Toxoid Vaccination: No Hx Influenza Vaccination: No Hx Pneumococcal Vaccination: No Review Of Systems Constitutional: Negative for: Fever, Chills Cardiovascular: Negative for: Chest Pain, Palpitations Respiratory: Negative for: Cough, Shortness of Breath Gastrointestinal: Negative for: Nausea, Vomiting, Abdominal Pain, Diarrhea Neurological: Negative for: Weakness, Numbness Physical Exam - Physical Exam Appears: Non-toxic, No Acute Distress Skin: Warm, Dry, No Rash Head: Atraumatic, Normacephalic, No Tenderness Eye(s): bilateral: Normal Inspection, PERRL, EOMI Oral Mucosa: Moist Neck: Supple Chest: Symmetrical, No Deformity, No Tenderness Cardiovascular: Rhythm Regular, No Murmur Respiratory: No Rales, No Rhonchi, No Wheezing, Other (clear to auscultation bilaterally ) Gastrointestinal/Abdominal: Soft, No Tenderness, No Distention, No Guarding, No Rebound Extremity: Normal ROM, Other (patient has a 4cm x 5 cm non-healing ulcer to left foot, no foul odor, and no discharge. All of patient's toes on the left foot are amputated. ) Neurological/Psych: Oriented x3 ED Course And Treatment - Laboratory Results Result Diagrams: 05/21/17 08:21 05/21/17 08:21 O2 Sat by Pulse Oximetry: 97 (RA) Pulse Ox Interpretation: Normal Progress Note: EKG, blood work, and labs were ordered. Medical Decision Making Medical Decision Making: Dr Brown is in the ED and is here requesting patient be admitted to his service. Patient stable for admission. Disposition - Disposition Disposition: HOSPITALIZED Disposition Time: 08:54 Condition: STABLE - POA Present On Arrival: None - Clinical Impression Clinical Impression: Osteomyelitis, Preop examination - PA / POWER PLANT SUPERVISOR / Resident Statement MD/DO has reviewed & agrees with the documentation as recorded. - Scribe Statement The provider has reviewed the documentation as recorded by the Scribe Charis Mclain All medical record entries made by the Scribe were at my direction and personally dictated by me. I have reviewed the chart and agree that the record accurately reflects my personal performance of the history, physical exam, medical decision making, and the department course for this patient. I have also personally directed, reviewed, and agree with the discharge instructions and disposition. Decision To Admit - Pt Status Changed To: Hospital Disposition Of: Inpatient - Admit Certification Admit to Inpatient:: After my assessment, the patient will require hospitalization for at least two midnights. This is because of the severity of symptoms shown, intensity of services needed, and/or the medical risk in this patient being treated as an outpatient. - InPatient: Physician Admission Certification: I certify that this patient requires 2 or more midnights of care for the following reason:: Patient has osteomyelitis and needs Portacath placement for future use. - . Bed Request Type: Regular Admitting Physician: Elver Brown Jr. Patient Diagnosis: Osteomyelitis, Preop examination
[2017-05-21 08:56] LABS: ALB/GLOB RATIO 0.7 (1.0-2.1); ALKALINE PHOSPHATASE 123 U/L (38-126); ALT/SGPT 57 U/L (21-72); AST/SGOT 64 U/L (17-59); BLOOD UREA NITROGEN 22 mg/dL (9-20); CARBON DIOXIDE 19 mmol/L (22-30); CHLORIDE 108 mmol/L (98-107); POTASSIUM 4.8 mmol/L (3.6-5.2); SODIUM 135 mmol/L (132-148)
--- NOTE | 2017-05-21 10:24 | RAD ---
HISTORY: for admission COMPARISON: Chest x-ray performed 12/12/16 TECHNIQUE: Chest, one view. FINDINGS: Examination limited by habitus. LUNGS: Prominent interstitial markings may be chronic. Mild superimposed infection or edema cannot be excluded. Correlate clinically. No focal consolidation. Please note that chest x-ray has limited sensitivity for the detection of pulmonary masses. PLEURA: No significant pleural effusion identified. No definite pneumothorax . CARDIOVASCULAR: Mild cardiomegaly. Atherosclerotic calcifications OSSEOUS STRUCTURES: Osseous demineralization. Degenerative changes. VISUALIZED UPPER ABDOMEN: Unremarkable. OTHER FINDINGS: None. IMPRESSION: Prominent interstitial markings may be chronic. Mild superimposed infection or edema cannot be excluded. Correlate clinically. Mild cardiomegaly. Atherosclerotic calcifications.
[2017-05-21 11:00] LABS: RBC URINE < 1 /hpf (0-3); URINE BACTERIA RARE (<OCC); URINE BILIRUBIN NEGATIVE (NEGATIVE); URINE BLOOD NEGATIVE (NEGATIVE); URINE COLOR Yellow (YELLOW); URINE GLUCOSE (UA) NORMAL (Normal); URINE KETONE NEGATIVE (NEGATIVE); URINE LEUKOCYTE ESTERASE 1+ Leu/uL (Negative); URINE PROTEIN 1+ mg/dL (NEGATIVE); WBC URINE 26 /hpf (0-5)
[2017-05-21] MEDS ORDERED: ceFAZolin IV 1 gm in Dextrose 1 GM/50 ML BAG IVPB ONE (11:33)
[2017-05-21] MEDS ORDERED: Lidocaine 1% Inj (20ml) ONE (11:33)
[2017-05-21] MEDS ORDERED: Sodium Chloride 0.9% 500 ML IV ONE (12:00)
[2017-05-21] MEDS ORDERED: Midazolam 2 MG/2 ML VIAL ONE (12:02)
[2017-05-21] MEDS ORDERED: Propofol 10 mg/ml Inj (20 ML) ONE (12:03)
[2017-05-21] MEDS ORDERED: HEPARIN-NS 5,000 UNITS/500 ML 5,000 UNIT/500 ML BAG IV ONE (12:17)
[2017-05-21] MEDS ORDERED: Oxycodone/Acetaminophen 5/325 mg Tab PO PRN (13:06)
--- NOTE | 2017-05-21 13:08 | PCM.SURG1 ---
Surgeon's Initial Post Op Note - Surgeon's Notes Surgeon: Dr. Borwn Assembler Adjuster: Sobeida PGY1 Type of Anesthesia: IV Sedation Pre-Operative Diagnosis: Vascular access malfunction, termite control servicer IV antibiotics for left necrotic foot wound Operative Findings: see operative report Post-Operative Diagnosis: Vascular access malfunction, termite control servicer IV antibiotics for left necrotic foot wound Operation Performed: Right IJ portacath insertion Specimen/Specimens Removed: N/A Estimated Blood Loss: EBL {In ML}: 5 Blood Products Given: N/A Drains Used: No Drains Post-Op Condition: Good Date of Surgery/Procedure: 05/21/17 Time of Surgery/Procedure: 12:00
[2017-05-21 13:33] VITALS: O2SAT 100
--- NOTE | 2017-05-21 14:51 | RAD ---
HISTORY: r/o ptx s/p portacath insertion right ij COMPARISON: 05/21/2017 at 8:16 a.m. FINDINGS: LUNGS: No active pulmonary disease. PLEURA: No significant pleural effusion identified, no pneumothorax apparent. CARDIOVASCULAR: Normal heart size. New right Port-A-Cath terminating at the level of the cavoatrial junction. OSSEOUS STRUCTURES: No significant abnormalities. VISUALIZED UPPER ABDOMEN: Normal. OTHER FINDINGS: None. IMPRESSION: New right Port-A-Cath. No pneumothorax. Otherwise unremarkable.
[2017-05-21 15:30] VITALS: BP 135/70; PULSE 75; RESP 18; TEMP 97
--- NOTE | 2017-05-21 19:16 | OP ---
PROCEDURE DATE: 05/21/2017 PREOPERATIVE DIAGNOSIS: Lack of venous access. POSTOPERATIVE DIAGNOSIS: Lack of venous access. PROCEDURE CARRIED OUT: Port-A-Cath, right jugular vein with C-arm fluoroscopy and ultrasound-guided puncture, and micropuncture technique. It is a PowerPort. SURGEON: Elver Brown Jr., MD INHALATION THERAPY AIDE: Dr. Danny Vidales, resident. ANESTHESIOLOGIST: Mr. White. PROCEDURE IN DETAIL: The patient was given local anesthesia using ultrasound guidance and micropuncture technique, the right jugular vein was punctured. This was done after intravenous antibiotics had been administered and the skin had been prepped. A guidewire was then exchanged for a 0.35 wire. A sheath dilator was passed over this. A pocket created on the chest wall and the catheter positioned in the appropriate location. Superior vena cava and right atrium was flushed with heparinized saline with good return. The procedure was then terminated after the skin was closed. Blood loss for the procedure was less than 5 mL. Operation carried out was Port-A-Cath, right jugular vein with C-arm fluoroscopy and ultrasound-guided puncture, and micropuncture technique. Elver Brown Jr., MD cc: Mitra Guy MD
--- NOTE | 2017-05-22 13:30 | CARD ---
APPROVED REPORT EKG Measurement Heart [id number] MI [id number] <Conclusion> Normal sinus rhythm Left ventricular hypertrophy with repolarization abnormality Abnormal ECG
--- NOTE | 2017-05-22 15:06 | RAD ---
PROCEDURE: Fluoroscopy up to 1 hr. HISTORY: Port-A-Cath insertion. COMPARISON: None TECHNIQUE: Standard protocol for this study/examination. FINDINGS: Submitted images from the current procedure: 1.0. Total exam DLP: (mGy): 3.80 IMPRESSION: Total fluoroscopic time (continuous mode) utilized during the procedure: 31.0 seconds.
== END 2017-05-21 18:51 | disposition home or self-care (01) ==
LOC: C.ER 07:31 → C.SDS 08:04 → C.9E 08:05 → UNDOADMIN 08:05 → C.SDS 18:51 → UNDODISIN 18:51
PROVIDERS: ATTEND Surgery Vascular Surgery
DX: M86.9 Osteomyelitis, unspecified (principal); I11.0 Hypertensive heart disease with heart failure; E11.69 Type 2 diabetes mellitus with other specified complication; E78.00 Pure hypercholesterolemia, unspecified; E03.9 Hypothyroidism, unspecified; I25.10 Atherosclerotic heart disease of native coronary artery without angina pectoris
CPT/HCPCS: 36561; 71010; 77001; 80053; 81001; 82948; 85025; 85610; 85730; 87070; 87181; 93005; 99285; C1788; J0690; J1644; J2250; J2704; J3010; J7040

== ENCOUNTER 2017-06-12 09:35 | Emergency (ER) | payer MEDICARE, MEDICAID ==
[2017-06-12 09:37] VITALS: BMI 33.4
[2017-06-12 09:44] VITALS: O2SAT 98
--- NOTE | 2017-06-12 10:18 | C.PDOC ---
History Of Present Illness 81 year old male with PMHx of DM accompanied by his son is sent to the ED by Dr. Gaytan [facility] for evaluation of left foot ulcer. Patient has a transmetatarsal amputation and a non healing ulcer on the lateral aspect of his left foot. Patient was sent to the ED to get an arterial Doppler exam done. Time Seen by Provider: 06/12/17 09:41 Chief Complaint (Nursing): Lower Extremity Problem/Injury History Per: Patient, Family History/Exam Limitations: no limitations Onset/Duration Of Symptoms: Days Current Symptoms Are (Timing): Still Present Severity: None Recent travel outside of the [place]: No Additional History Per: Family - Knee Currently Unable To: Other (ambulate) Past Medical History Reviewed: Historical Data, Nursing Documentation, Vital Signs Vital Signs: Last Vital Signs Temp 98.1 F 06/12/17 14:47 Pulse 95 H 06/12/17 14:47 Resp 20 06/12/17 14:47 BP 111/42 L 06/12/17 14:47 Pulse Ox 98 06/12/17 16:23 - Medical History PMH: Arthritis, CAD, CHF, Diabetes, HTN, Hypercholesterolemia, Hypothyroidism Denies: Fractures, HIV, Pneumonia, Chronic Kidney Disease Surgical History: Cholecystectomy Other Surgeries: left TMA - [facility] Procedures ARTHROCENTESIS (04/20/14) CENTRAL VENOUS CATHETER PLACEMENT WITH GUIDANCE (06/20/14) CYSTOSCOPY NEC (01/19/14) DETACHMENT AT LEFT FOOT, PARTIAL 3RD RAY, OPEN APPROACH (10/07/16) DETACHMENT AT LEFT FOOT, PARTIAL 4TH RAY, OPEN APPROACH (10/07/16) DILATION OF 1 COR ART WITH 2 DRUG-ELUT, PERC APPROACH (12/11/16) DILATION OF L FEM ART WITH 2 DRUG-ELUT, PERC APPROACH (10/07/16) EXTIRPATION OF MATTER FROM L FEM ART, PERC APPROACH (10/07/16) FLUOROSCOPY OF SUPERIOR VENA CAVA, GUIDANCE (05/08/17) INSERTION OF ENDOTRACHEAL AIRWAY INTO TRACHEA, VIA OPENING (08/01/15) INSERTION OF INFUSION DEV INTO SUP VENA CAVA, PERC APPROACH (05/08/17) INTRAOPER CHOLANGIOGRAM (09/30/14) INTRODUCE OTH ANTI-INFECT IN CENTRAL VEIN, PERC (05/08/17) LAPAROSCOP LYSIS-PERITONEAL ADHES (09/30/14) LAPAROSCOPIC CHOLECYSTECTOMY (09/30/14) MEASURE OF CARDIAC SAMPL & PRESSURE, L HEART, PERC APPROACH (12/11/16) PERC HEPAT CHOLANGIOGRAM (04/20/14) PERCUTAN ASPIRATION GB (07/14/14) PLAIN RADIOGRAPHY OF L LOW EXTREM ART USING OTH CONTRAST (12/11/16) PLAIN RADIOGRAPHY OF LEFT HEART USING OTHER CONTRAST (12/11/16) PLAIN RADIOGRAPHY OF MULT COR ART USING OTH CONTRAST (12/11/16) REMOV CHOLECYSTOST TUBE (06/03/14) RESPIRATORY VENTILATION, 24-96 CONSECUTIVE HOURS (08/01/15) TRANSURETHRAL PROSTATECTOMY ([place]) (01/19/14) ULTRASONOGRAPHY OF SUPERIOR VENA CAVA, GUIDANCE (05/08/17) VACCINATION NEC (11/09/14) VENOUS CATHETERIZATION NEC (08/25/14) Family History: States: Unknown Family Hx - Social History Hx Tobacco Use: Yes Hx Alcohol Use: No Hx Substance Use: No - Immunization History Hx Tetanus Toxoid Vaccination: No Hx Influenza Vaccination: No Hx Pneumococcal Vaccination: No Review Of Systems Constitutional: Negative for: Fever, Chills Cardiovascular: Negative for: Chest Pain, Palpitations Respiratory: Negative for: Cough, Shortness of Breath Skin: Positive for: Other (left foot ulcer) Neurological: Positive for: Weakness, Confusion Physical Exam - Physical Exam Appears: Non-toxic, Confused, Chronically Ill, Other (Frail, thin) Skin: Normal Color, Warm, Dry Head: Atraumatic, Normacephalic Oral Mucosa: Dry Chest: Symmetrical Cardiovascular: Rhythm Regular, No Murmur Respiratory: Normal Breath Sounds, No Wheezing Gastrointestinal/Abdominal: Soft, No Tenderness Back: Normal Inspection Extremity: Normal ROM, No Pedal Edema, No Calf Tenderness, No Swelling, Other ( transmetatarsal amputation left foot, left lateral non healing ulcer with foul smelling d/c) Neurological/Psych: Oriented x3 Gait: Steady ED Course And Treatment - Laboratory Results Result Diagrams: 06/12/17 10:24 06/12/17 10:24 O2 Sat by Pulse Oximetry: 98 (On RA) Pulse Ox Interpretation: Normal Medical Decision Making Medical Decision Making: Impression : left foot transmetatarsal amputation, non healing ulcer Plan: * Blood work * Blood culture * UA * Arterial Doppler lower ext Case discussed with Dr. Gaytan and Dr Dr. Brown for evaluation on worsening left foot ulcer possible admission for BKA amputation. Dr. Brown evaluated patient and spoke with the family regarding possible amputation but family refused any surgical intervention. 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 Patient will be d/c home and going back [facility] jail. Treated with IVF NSS 1 liter Disposition Discussed With .: Elver Brown Jr. Doctor Will See Patient In The: Hospital Counseled Patient/Family Regarding: Studies Performed, Diagnosis, Need For Followup, Rx Given - Disposition Referrals: Elver Brown Jr., MD [Staff Provider] - Chilango Gaytan DPM [Staff Provider] - Disposition: OTHER INSTITUTION Disposition Time: 16:00 Condition: STABLE Additional Instructions: Follow up with PMD for further evaluation Instructions: Diabetic Foot Ulcers (ED) Forms: [employer] (Spanish) - POA Present On Arrival: None - Clinical Impression Clinical Impression: Chronic ulcer of left foot - PA / RN RADIATION / Resident Statement MD/DO has reviewed & agrees with the documentation as recorded. - Scribe Statement The provider has reviewed the documentation as recorded by the Scribe Perico Rebollar All medical record entries made by the Yonatanibnadeen were at my direction and personally dictated by me. I have reviewed the chart and agree that the record accurately reflects my personal performance of the history, physical exam, medical decision making, and the department course for this patient. I have also personally directed, reviewed, and agree with the discharge instructions and disposition.
[2017-06-12 10:27] LABS: BASO # 0.2 K/uL (0.0-0.2); BASO % 1.5 % (0.0-2.0); EOS % 8.8 % (0.0-4.0); HEMATOCRIT 38.1 % (35.0-51.0); LYMPH # 3.1 K/uL (1.0-4.3); LYMPH % 26.7 % (20.0-40.0); MEAN CELL VOLUME 73.2 fL (80.0-94.0); MEAN CORPUSCULAR HEMOGLOBIN 23.9 pg (27.0-31.0); MEAN CORPUSCULAR HGB CONC 32.7 g/dL (33.0-37.0); MEAN PLATELET VOLUME 8.5 fL (7.2-11.7); MONO # 1.3 K/uL (0.0-0.8); MONO % 11.6 % (0.0-10.0); NRBC % 0.1 % (0.0-2.0); RED CELL DISTRIBUTION WIDTH 17.2 % (11.5-14.5); WHITE BLOOD COUNT 11.5 K/uL (4.8-10.8)
[2017-06-12 10:35] LABS: INR 1.1
[2017-06-12 11:07] LABS: ALB/GLOB RATIO 0.8 (1.0-2.1); BILIRUBIN,TOTAL 0.6 mg/dL (0.2-1.3); CALCIUM 9.2 mg/dl (8.6-10.4); POTASSIUM 4.5 mmol/L (3.6-5.2); TOTAL PROTEIN 8.4 g/dL (6.3-8.3)
[2017-06-12] MEDS ORDERED: Sodium Chloride 0.9% 1,000 ML IV ONE (13:47)
[2017-06-12] MEDS ORDERED: Sodium Chloride 0.9% 1,000 ML ONE (13:48)
[2017-06-12 14:48] VITALS: BP 111/42; PULSE 95; RESP 20; TEMP 98.1
--- NOTE | 2017-06-13 02:08 | CON ---
DATE: 06/12/2017 REQUESTING PHYSICIAN: Dr. Gaytan HISTORY OF PRESENT ILLNESS: The patient is an 81-year-old male, who I have seen previously. He was seen in the emergency room at [facility] for evaluation of non-healing ulcer on the left leg adjacent to an area where he had a previous transmetatarsal amputation, which is more or less healed. The patient has a history of recent onset dementia, now he has contraction in the left knee and his general condition has deteriorated. He was examined in the presence of his son, Huang. PHYSICAL EXAMINATION: Shows that he has dry gangrenous areas, some pallor, some cellulitis adjacent to it. He also has pulses elsewhere. He had a Duplex exam done, which does show some perfusion into the foot. IMPRESSION: The patient has a non-healing ulcer of the left fifth toe area. He is not a candidate for any surgical or endovascular intervention. He has an established contraction in the knee. I discussed this with the son and I said that there are options such as an above-knee amputation or the possibility of a comfort care. He said they are making sure that he dies his natural without any further surgical intervention. The son was unsure what he wanted to do. He will discuss it further with family members, but at this time I think they will allow him to naturally or just allow the disease to progress naturally would probably be the safest and virtual main course. He is not a candidate for revascularization. He is not a candidate for below-knee amputation and I think in the end the result whatever we do will be more or less the same. Elver Brown Jr., MD
--- NOTE | 2017-06-14 10:13 | VASCLAB ---
PROCEDURE: Left Lower Extremity Arterial Exam. HISTORY: PVD, Left foot ulcer. COMPARISON: None available. TECHNIQUE: Grayscale and duplex Doppler evaluation of the left common femoral, femoral, profunda femoral, popliteal, posterior tibial, anterior tibial and dorsalis pedis arteries was performed. Report prepared by RJ Romeo FINDINGS: LEFT LOWER EXTREMITY: * Common Femoral Artery: Peak Systolic Velocity - 105: Doppler Waveform: Biphasic * Profunda Femoral Artery: Peak Systolic Velocity - 102: Doppler Waveform: Biphasic.: Plaque description - * Femoral Artery o Proximal Segment: Peak Systolic Velocity - 47: Doppler Waveform: Monophasic: Plaque description - o Middle Segment: Peak Systolic Velocity - 31: Doppler Waveform: Monophasic: Plaque description - o Distal Segment: * Popliteal Artery o Proximal Segment: o Middle Segment: o Distal Segment: * Proximal posterior Tibial Artery: Peak Systolic Velocity - 40 : Doppler Waveform: Monophasic: Plaque description - * Anterior Tibial Artery: Peak Systolic Velocity - 0: Doppler Waveform: Absent: Plaque description - * Dorsalis Pedis Artery: OTHER FINDINGS: None. IMPRESSION: 1. No flow detected at the left distal, anterior and posterior tibial arteries. 2. Patent left SFA stent, up to mid thigh level. LIMITED EXAM. Unable to perform arterial doppler or complete arterial duplex exam. Patient unable to cooperate.
== END 2017-06-12 14:54 | disposition designated cancer center or children's hospital (05) ==
LOC: C.ER 09:35
DX: L97.529 Non-pressure chronic ulcer of other part of left foot with unspecified severity (principal); I10 Essential (primary) hypertension; E11.9 Type 2 diabetes mellitus without complications; E78.00 Pure hypercholesterolemia, unspecified; Z87.891 Personal history of nicotine dependence
CPT/HCPCS: 36415; 80053; 85025; 85610; 87040; 93926; 96360; 99285; J7040